=== PATIENT | female | born 2000 | race Caucasian/White ===

== ENCOUNTER 2023-12-30 07:29 | Emergency (ER) | payer OTHER, SELFPAY ==
[2023-12-30 07:35] VITALS: BP 148/85; PULSE 91; TEMP 36.7; O2SAT 96; BMI 42.2
[2023-12-30 07:42] VITALS: O2SAT 97
--- NOTE | 2023-12-30 11:45 | ED.GENADUL1 ---
HPI HPI - General Adult General Chief complaint: Upper Respiratory Infection Stated complaint: SORE THROAT, SOB, STUFFY NOSE Time Seen by Provider: 12/30/23 07:35 Source: patient Mode of arrival: walk-in Limitations: no limitations History of Present Illness HPI narrative: 23-year-old female to the emergency department chief complaint nasal congestion, cough, sore throat, malaise that began this morning. She denies any chest pain or shortness of breath. She denies . No medications taken at home. Related Data Home Medications ?Medication ?Instructions ?Recorded ?Confirmed metoprolol succinate 25 mg 25 mg PO DAILY 12/30/23 12/30/23 tablet,extended release 24 hr Previous Rx's ?Medication ?Instructions ?Recorded jckygtlqfbioyyq-opgcrvcvfqalzrk-YL 5 ml PO Q4H PRN cold symptoms #118 12/30/23 2 mg-30 mg-10 mg/5 mL oral syrup mL (Bromfed DM) Allergies Allergy/AdvReac Type Severity Reaction Status Date / Time latex AdvReac Mild Hives Verified 12/30/23 07:35 Opioid HPI Opioid Management Most Recent Opioid Data: No Data to Display Review of Systems ROS Status of ROS 10 or more systems reviewed and unremarkable except as noted in history and below Exam Narrative Exam Narrative: VITALS: I have reviewed the triage vital signs. GENERAL: Well developed, well appearing adult in no acute distress. NEURO: Alert and oriented. Moves all extremities. Face is symmetric and expressive. EYES: PERRL. No scleral icterus or conjunctival injection. No discharge. HENT: Normocephalic, atraumatic. Hearing is grossly intact. Nares grossly patent and without discharge. Mucous membranes moist. NECK: No JVD. Patient moves neck without restriction. CARDIO: Rhythm regular. Normal rate. No murmur, rub, or gallop. Pulses equal bilaterally in the upper and lower extremity. No lower extremity edema. PULM: Lungs clear to auscultation in all mcbride. No wheezes, rales, or rhonchi. No conversational dyspnea. No splinting, stridor, or accessory muscle use. GI/: Abdomen is soft and non-tender. Normoactive bowel sounds. EXTREMITIES: Symmetric muscle bulk. No joint swelling. No clubbing, cyanosis, or deformity. SKIN: Warm and dry. Normal turgor. No rash or lesions appreciated. PSYCH: Mood, affect, and interaction is appropriate to the setting. Constitutional Vital Signs, click to edit/add: Last Vital Signs Temp 98.1 F 12/30/23 07:35 Pulse 91 H 12/30/23 07:35 Resp 18 12/30/23 07:35 BP 148/85 H 12/30/23 07:35 Pulse Ox 97 12/30/23 07:42 O2 Del Method Room Air 12/30/23 07:42 Course Vital Signs Vital signs: Vital Signs Temperature 98.1 F 12/30/23 07:35 Pulse Rate 91 H 12/30/23 07:35 Respiratory Rate 18 12/30/23 07:35 Blood Pressure 148/85 H 12/30/23 07:35 Pulse Oximetry 96 12/30/23 07:35 Oxygen Delivery Method Room Air 12/30/23 07:35 Temperature 98.1 F 12/30/23 07:35 Pulse Rate 91 H 12/30/23 07:35 Respiratory Rate 18 12/30/23 07:35 Blood Pressure 148/85 H 12/30/23 07:35 Pulse Oximetry 97 12/30/23 07:42 Oxygen Delivery Method Room Air 12/30/23 07:42 Medical Decision Making MDM Narrative Medical decision making narrative: Well-appearing 23-year-old female with URI symptoms began again this morning. Vital stable, the patient is afebrile. Will treat symptomatic medications. No indication for viral testing. Rhonchi prescribed. Return precautions were discussed. All questions were answered. Patient was discharged home. Discharge Plan Discharge Stand Alone Forms: Portal Instructions Chief Complaint: Upper Respiratory Infection Clinical Impression: Upper respiratory infection Patient Disposition: Home, Self-Care Time of Disposition Decision: 07:52 Condition: Good Mode of Transportation: Private Vehicle Prescriptions / Home Meds: New owscccjbvedzvae-gmpzssimq-IQ [Bromfed DM] 2-30-10 mg/5 mL syrup 5 ml PO Q4H PRN (Reason: cold symptoms) Qty: 118 0RF No Action metoprolol succinate 25 mg tablet extended release 24 hr 25 mg PO DAILY Print Language: Pakistani Instructions: Upper Respiratory Infection (ED) Additional Instructions: Call the office of your primary care doctor to arrange for follow-up within the above-stated timeframe. Your ED visit was focused on your acute issue and does not replace primary care. You should review your labs, imaging, and diagnoses from this ED visit with your primary care physician. There may be non-emergent/ incidental findings that need further evaluation. You should review your vital signs including blood pressure with your PCP. If you were prescribed medications you should discuss possible side-effects and drug interactions with your pharmacist. Call 911 or go to the nearest Emergency Department if you develop any new or worsening symptoms. Referrals: MINAL NEWMAN [Primary Care Provider] - 1 week Discharge Date/Time: 12/30/23 07:59
== END 2023-12-30 07:59 | disposition home or self-care (01) ==
PROVIDERS: Emergency Provider Student in an Organized Health Care Education/Training Program; PCP Family Medicine
DX: J06.9 Acute upper respiratory infection, unspecified (principal)
CPT/HCPCS: 99283

== ENCOUNTER 2024-10-30 09:09 | Emergency (ER) | payer OTHER, SELFPAY ==
--- OUTSIDE RECORDS SUMMARY | 2024-09-20 10:21 | XMS_ITS | Continuity of Care Document ---
Demographics Address [address] [place] [address] Home Phone Phone Preferred Language en Marital Status Never Methodist Affiliation Unknown Race Unknown Additional Race(s) Other Race Ethnic Group Unknown Author Organization [facility] Address [address] [place] [address] Phone Care Team Providers Care Sales Promotion Director Name Role Phone Plank DO Teja Unavailable [...] BP >=130-139MM HG MED LIST DOCD IN [facility] RVW MEDS BY RX/DR IN [facility] Pt inelig neg scrn depres GLYCOSYLATED HEMOGLOBIN TEST OFFICE/OUTPATIENT VISIT, EST Bp scrn perf rec interval LDL-C <100 MG/DL DIAST BP < 80 MM HG SYST BP < 130 MM HG MED LIST DOCD IN [facility] RVW MEDS BY RX/DR IN [facility] PREV VISIT, EST, AGE 18-39 OFFICE/OUTPATIENT VISIT, EST Bp scrn perf rec interval LDL-C <100 MG/DL DIAST BP < 80 MM HG SYST BP < 130 MM HG MED LIST DOCD IN [facility] RVW MEDS BY RX/DR IN [facility] PT TOBACCO USE DONE [facility] TLK OFFICE/OUTPATIENT VISIT, NEW Bp scrn perf rec interval DIAST BP < 80 MM HG SYST BP >=130-139MM HG MED LIST DOCD IN [facility] RVW MEDS BY RX/DR IN [facility] PT TOBACCO USE DONE VD TLK ROUTINE VENIPUNCTURE Oral Hygiene Instruction Resin Composite 2s; Posterior 4 Resin Composite 2s; Posterior 4 Resin Composite 2s; Posterior 4 Oral Hygiene Instruction Prophylaxis Adult Nutrit [facility] For [facility] Of [place] Dis Apr Oral Hygiene Instruction Resin Composite [...] Diagnoses Date Provider Providers Copied on Encounter [facility], [address] [place] [address], [id number] , [place] tel: [phone] [facility] No Information Aug-2 - 5 Plank DO Teja. [address], [place], [id number] , [place]. tel: [phone] OFFICE/OUTPA TIENT VISIT, EST [facility], [address], [place], [id number] , [place] tel: [phone] [facility] knee problem (chief complaint) Weight problem (chief complaint) PrediabetesObesity, unspecifiedNeuropat hy of left lower extremityBody mass index [BMI] 45.0-49.9, adult Apr-0 - 5 Plank DO Teja. [address] [place] [address], [id number] , [place]. tel: [phone] OFFICE/OUTPA TIENT VISIT, EST [facility], [address], [place], [id number] , [place] tel: [phone] [facility] migraine f/u (chief complaint) Migraine, unspecified, not intractable, without status migrainosusPrediabe tesObesity, unspecifiedBody mass index [BMI] 39.0-39.9, adult Sep-0 - 4 Plank DO Teja. [address] [place] [address], [id number] , [place]. tel: [phone] PREV VISIT, EST, AGE 18-39 [facility], [address] [place] [address], [id number] , [place] tel: [phone] [facility] annual exam (chief complaint) Encounter for gynecological examination (general) (routine) without abnormal findings- STD High risk heterosexual behavior- STD screenIrregular periodsBody mass index [BMI]40.0-44.9, adult Nov-3 0- 4 Rice [facility] Esther. [address] [place] [address], [id number] , [place]. tel: [phone] OFFICE/OUTPA TIENT VISIT, EST [facility], [address], [place], [id number] , [place] tel: [phone] [facility] f/u labs (chief complaint) Body mass index [BMI]40.0-44.9, adultMigraine, unspecified, not intractable, without status migrainosusPrediabe quentin 4 Plank DO Teja. [address], [place], [id number] , [place]. tel: [phone] OFFICE/OUTPA TIENT VISIT, NEW [facility], [address], [place], [id number] , [place] tel: [phone] [facility] est care (chief complaint) lab draw (chief complaint) Body mass index [BMI]40.0-44.9, adultMigraine, unspecified, not intractable, without status migrainosusMenstrua l irregularityNeed for hepatitis C screening testEncounter for screening for HIVDiabetes mellitus screening 4 Plank DO Teja. [address], [place], [id number] , [place]. tel: [phone] [facility], [address] [place] [address], [id number] , [place] tel: [phone] Dental Clinic fill (chief complaint) Encounter for screening for dental disorders 4 Jacklyn DAVALOSS Cortney. . tel: [phone] [facility], [address] [place] [address], [id number] , [place] tel: [phone] Dental Clinic Filling (chief complaint) Body mass index [BMI] 34.0-34.9, adultEncounter for screening for dental disorders 4 Jacklyn DDS Cortney. . tel: [phone] [facility], [address] [place] [address], [id number] , [place] tel: [phone] Dental Clinic [place] (chief complaint) Encounter for screening for dental disorders 3 Jacklyn DDS Cortney. . tel: [phone] [facility], [address], [place], [id number] , [place] tel: [phone] Behavorial Health Generalized Anxiety DisorderDepression, unspecified Apr- 3 Capucini, [facility] Carrie. [address], [place], [id number] , [place]. tel: [phone] [facility], [address] [place] [address], [id number] , [place] tel: [phone] Dental Clinic SHONA (chief complaint) Encounter for screening for dental disorders 3 Jacklyn [facility] Cortney. . tel: [phone] [facility], [address] [place] [address], [id number] , [place] tel: [phone] [facility] Dental Clinic DENTAL NEW (chief complaint) Encounter for screening for dental disorders 3 Jacklyn [facility] Cortney. . tel: [phone] PSYTX PT&/FAMILY 60 MINUTES [facility], [address] [place] [address], [id number] , [place] tel: [phone] Behavorial Health Generalized Anxiety DisorderDepression, unspecified Feb- 3 Capucini, [facility] Carrie. [address] [place] [address], [id number] , [place]. tel: [phone] PSYTX PT&/FAMILY 60 MINUTES [facility], [address] [place] [address], [id number] , [place] tel: [phone] Behavorial Health Generalized Anxiety DisorderDepression, unspecified Oct-0 3 Capucini, [facility] Carrie. [address] [place] [address], [id number] , [place]. tel: [phone] PSYTX PT&/FAMILY 30 MINUTES [facility], [address] [place] [address], [id number] , [place] tel: [phone] Behavorial Health Generalized Anxiety DisorderDepression, unspecified Jan 3 Capucini, [facility] Carrie. [address], [place], [id number] , [place]. tel: [phone] PSYCH DIAGNOSTIC EVALUATION [facility], [address] [place] [address], [id number] , [place] tel: [phone] [facility] Generalized Anxiety DisorderDepression, unspecified Sep- 3 Berenice, [facility] Carrie. [address], [place], [id number] , [place]. tel: [phone] [facility], [address] [place] [address], [id number] , [place] tel: [phone] [facility] No Information 1 Ned Benson. [address], [place], [id number] , [place]. tel: [phone] [facility], [address] [place] [address], [id number] , [place] tel: [phone] [facility] No Information 1 Madelyni DO Granda. [address] [place] [address], [id number] , [place]. tel: [phone] Family History Family Member Type Diagnosis Age At Onset Father Problem Asthma Sister Problem ADD/ADHD Father Problem Allergies Mother Problem Diabetes mellitus Father Problem Diabetes mellitus Father Problem Hypertension Mother Problem Migraine headaches Immunizations Vaccine Date Status Comments Pfizer COVID administered Source: New Imm unization Record Pfizer COVID administered Source: New Imm unization Record Payers Payer name Insurance type Covered constitution party ID Authoragusa tihiral(s) [facility] [id number] Social History Type Description Quantity Date Captured [...] Of Treatment Date Type Action Status Goal Unhealthy drug use screening . Due on due Goal Influenza vaccine. Due on Ap due Goal Hepatitis C screening. Due o n due Goal Tdap Vaccine. Due on 2024 due Goal PRAPARE ASSESSMENT. Due on A due Goal PAP. Due on due Goal RLP. Due on due Goal Lipid panel. Due on due Goal Depression screening. Due on due Goal Tdap. Due on due Goal Lipid panel. Due on due Goal PAP. Due on due Goal PRAPARE ASSESSMENT. Due on A due Goal Hepatitis C screening. Due o n due Goal Influenza vaccine. Due on Ap due Goal Depression screening. Due on due Goal Tdap. Due on due Goal Tdap Vaccine. Due on 2024 due Goal RLP. Due on due Goal Unhealthy drug use screening . Due on due Goal Influenza vaccine. Due on Se due Goal RLP. Due on due Goal Lipid panel. Due on due Goal PRAPARE ASSESSMENT. Due on S due Goal Hepatitis C screening. Due o n due Goal Tdap Vaccine. Due on 2023 due Goal Depression screening. Due on due Goal PAP. Due on due Goal Unhealthy drug use screening . Due on due Goal Tdap. Due on due Goal RLP. Due on [...] Hep A. Due on du e Goal PRAPARE ASSESSMENT. Due on due Goal RLP. Due on due Goal PAP. Due on due Goal Influenza vaccine. Due on due Goal Lipid panel. Due on due Goal Hepatitis C screening. Due o n due Goal Tdap Vaccine. Due on 2023 due Goal Unhealthy drug use screening . Due on due Goal Depression screening. Due on due Goal Tdap. Due on due Goal Tobacco cessation counseling completed Goal Lifestyle education regardin g diet completed Goal PAP. Due on due Goal Hepatitis C screening. Due o n due Goal PRAPARE ASSESSMENT. Due on due Goal Unhealthy drug use screening . Due on due Goal Depression screening. Due on due Goal Tdap Vaccine. Due on 2023 due Goal RLP. Due on due Goal Influenza vaccine. Due on due Goal Tdap. Due on due Goal Lifestyle education regardin [...] education , guidance, and counseling completed Goal PRAPARE ASSESSMENT. Due on due Goal [...] Hep A. Due on du e Goal Tdap. Due on due Goal Hep A. Due on du e Goal Depression screening. Due on due Goal Hepatitis C screening. Due o n due Goal Influenza vaccine. Due on due Goal PRAPARE ASSESSMENT. Due on N due Goal Tdap Vaccine. Due on 2022 due Goal Unhealthy drug use screening . Due on due Goal RLP. Due on due Goal Hep A. Due [...] due Goal Tdap. Due on due Goal RLP. Due on due Goal Unhealthy drug use screening . Due on due Goal Hepatitis C screening. Due o n due Goal Tdap Vaccine. Due on 2022 due Goal Influenza vaccine. Due on Oc due Goal Tdap. Due on due Goal Depression screening. Due on due Goal RLP. Due on due Goal PRAPARE ASSESSMENT. Due on O 3 due Goal Hepatitis C screening. Due o n due Goal Tdap Vaccine. Due on 2022 due Goal Influenza vaccine. Due on Oc t due Goal Unhealthy drug use screening . Due on due Goal Hep A. Due on du e Goal Depression screening. Due on due Goal Tdap. Due on due Goal PRAPARE ASSESSMENT. Due on S ep due Goal Influenza vaccine. Due on Se p due Goal RLP. Due on due Goal Tdap Vaccine. Due on 2022 due Goal Depression screening. Due on due Goal Tdap. Due on due Goal PRAPARE ASSESSMENT. Due on S ep due Goal Tdap Vaccine. Due on 2022 due Goal Influenza vaccine. Due on Se p due Goal RLP. Due on due History [...] a tumor. She had labs completed at [facility] and had a MRI of the brain at [facility]. She states when she was on OCPs [...] care Patient here to establish care with [facility] PCP. Patient used to go to [facility], just did not like their care anymore. Patient will get scheduled with [facility] WORK [facility]. Patient is UTD on dental. Patient due for vision exam soon. Patient has concerns of migraines, has had them for years. Patient tried a dissoluble medication by [facility] that did not help. Sometimes Tylenol helps. [...]
--- OUTSIDE RECORDS SUMMARY | 2024-10-19 13:30 | XMS_ITS | Encounter Summary ---
Demographics Address [address] [place] [address] Home Phone Mobile Phone Email Address Email Address Preferred Language en Marital Status Unmarried Episcopal Affiliation Unknown Race White Ethnic Group Not or Lati no Author Organization [facility] Address [address] [place] [address] Care Team Providers Care Senior Asic Design Engineer Name Role Phone Filiberto Calhoun Primary Care Provider [phone] Encounter Details Date Type Department Care Team (Latest Contact Info) Description 10/19/2024 1:30 PM EDT Ancillary Procedure [facility] [address] [place] [id number] Amenorrhea; Polycystic ovaries Social History Tobacco Use Types Packs/Day Years Used Date Smoking Tobacco: Never Smokeless Tobacco: Never Alcohol Use Standard Drinks/Week Comments Never 0 (1 standard drink = 0.6 oz pur e alcohol) caffeine: 2-3 cups per day Humiliation, Afraid, Rape, and Kick questionnair e Answer Date Recorded Within the last year, have y ou been afraid of your partner or ex-partner? No 11/19/2022 Within the last year, have y ou been humiliated or emotionally abused in other ways by your partner or ex-partner? No Within the last year, have y ou been kicked, hit, slapped, or otherwise physically hurt by your partner or ex-partner? No 11/19/2022 Within the last year, have y ou been raped or forced to have any kind of sexual activity by your partner or ex-partner? No 11/19/2022 Social Connection and Isolation Panel [NHANES] A nswer Date Recorded In a typical week, how many times do you talk on the phone with family, friends, or neighbors? Three times a week 11/20/19 23 How often do you get togethe r with friends or relatives? Once a week 11/19/2022 How often do you attend chur ch or faith services? Never 11/19/2022 Do you belong to any clubs o r organizations such as hinduism groups, unions, fraternal or athletic groups, or school groups? No 11/19/2022 How often do you attend meet ings of the clubs or organizations you belong to? Never 11/19/2022 Are you , , di vorced, , never , or living with a partner? Living with partner 11/19/2022 AUDIT-C Answer Date Recorded Q1: How often do you have a drink containing alcohol? Never 11/19/2022 Q2: How many drinks containi ng alcohol do you have on a typical day when you are drinking? Patient does not drink Q3: How often do you have si x or more drinks on one occasion? Never 11/19/2022 Overall Financial Resource Strain (CARDIA) Answe r Date Recorded How hard is it for you to pa y for the very basics like food, housing, medical care, and heating? Somewhat hard 11/19/2022 PHQ-2 Answer Date Recorded Patient Health Questionnaire-2 Score 0 10/19/2023 [facility] - Occupational Stress Questionnaire Answer Date Recorded Do you feel stress - tense, restless, nervous, or anxious, or unable to sleep at night because your mind is troubled all the time - these days? To some extent 11/19/2022 Exercise Vital Sign Answer Date Recorde d On average, how many days pe r week do you engage in moderate to strenuous exercise (like a brisk walk)? 5 days 11/19/2022 On average, how many minutes do you engage in exercise at this level? 50 min 11/19/2022 Hunger Vital Sign Answer Date Recorded Within the past 12 months, y ou worried that your food would run out before you got the money to buy more. Sometimes true Within the past 12 months, t he food you bought just didn't last and you didn't have money to get more. Sometimes true PRAPARE - Transportation Answer Date Re corded In the past 12 months, has l ack of transportation kept you from medical appointments or from getting medications? No 10/30 In the past 12 months, has l ack of transportation kept you from meetings, work, or from getting things needed for daily living? Yes 11/19/2022 Housing Stability Vital Sign Answer Stewart e Recorded In the last 12 months, was t here a time when you were not able to pay the mortgage or rent on time? No 11/19/2022 In the last 12 months, how many places have you lived? 3 11/19/2022 In the last 12 months, was t here a time when you did not have a steady place to sleep or slept in a senior care (including now)? No 11/19/2022 Comments No Sex and Gender Information Value Date Recorded Sex Assigned at Female 11/12/2022 12:28 PM EDT Legal Sex Female 7:00 PM EDT Gender Identity Female 08/12/2022 7:00 PM EDT Sexual Orientation Pansexual 11/12/2022 12 :28 PM EDT documented as of this encounter Plan of Treatment Pending Results Name Type Priority Associated Diagnoses Date /Time US pelvis transvaginal Imaging Routine Amenorrhea Polycystic ovaries 10/19/2024 2:01 PM EDT documented as of this encounter Visit Diagnoses Diagnosis Amenorrhea Absence of menstruation Polycystic ovaries documented in this encounter Care Teams Senior Asic Design Engineer Relationship Specialty Start Date End Date Filiberto Calhoun DO [address] [address] PCP - General Family Medicine 11/17/22 documented as of this encounter
--- OUTSIDE RECORDS SUMMARY | 2024-10-19 14:00 | XMS_ITS | Encounter Summary ---
Demographics Address [address] [place] [address] Home Phone Mobile Phone Email Address Email Address Preferred Language en Marital Status Unmarried Anabaptist Affiliation Unknown Race White Ethnic Group Not or Lati no Author Organization [facility] Address [address] [place] [address] Care Team Providers Care Senior Account Director Name Role Phone Filiberto Calhoun Primary Care Provider [phone] Reason for Visit * Reason Comments Follow-up Encounter Details Date Type Department Care Team (Latest Contact Info) Description 10/19/2024 2:00 PM EDT Office Visit [facility] [address] [facility] [address] [place] [id number] Blake Serrano MD [address] [facility] [address] [place] [address] PCOS (polycystic ovarian syndrome); General counseling and advice on contraceptive management; Encounter for gynecological examination Social History Tobacco Use Types Packs/Day Years Used Date Smoking Tobacco: Never Smokeless Tobacco: Never Tobacco Cessation:Counseling Given: Not Answered Alcohol Use Standard Drinks/Week Comments Never 0 [...] or neighbors? Three times a week 11/20/19 How often do you get togethe r with friends or relatives? Once a week 11/19/2022 How often do you attend chur or sikhism services? Never 11/19/2022 Do you belong to any clubs o r organizations such as catholic groups, unions, fraternal or athletic groups, or [...] Recorded Patient Health Questionnaire-2 Score 0 10/19/2023 [facility] - Occupational Stress [...] place to sleep or slept in a longterm (including now)? No 11/19/2022 Comments No Sex and Gender Information Value Date Recorded Sex Assigned at Female 11/12/2022 12:28 PM EDT Legal Sex Female 7:00 PM EDT Gender Identity Female 08/12/2022 7:00 PM EDT Sexual Orientation Pansexual 11/12/2022 12 :28 PM EDT documented as of this encounter Last Filed Vital Signs Vital Sign Reading Time Taken Comments Blood Pressure 120/76 10/19/2024 2:01 PM EDT Pulse - - Temperature - - Respiratory Rate - - Oxygen Saturation - - Inhaled Oxygen Concentration - - Weight 117 kg (258 lb) 10/19/2024 2:01 PM EDT Height - - Body Mass Index 44.99 10/19/2023 12:22 PM EDT documented in this encounter Progress Notes * Blake Serrano MD - 10/19/2024 2:00 PM EDT Images from the original note were not included. Blake Serrano MD Obstetrics and Gynecology Patient: Osman Cohen : 2000 (23 y.o.) Exam Date: 10/19/2024 Reason for Visit - Chief Complaint Patient presents with Follow-up Follow-up following in-house ultrasound LMP 11/21 Acne/hirsutism No History of Present Illness Sprintec 09/27/24 The patient, Osman, presents with irregular bleeding and lack of periods due to a hormonal imbalance. She is not ovulating, which has been confirmed by ultrasound findings. Osman started taking control pills in August and reports taking them regularly. She experiences some cramping and a bit of s potting while on the medication. Progesterone 09/23 0.9-low SHBG,Normal [facility] An ultrasound was performed, which showed no ovarian cysts, and the ovaries and uterus appeared normal. However, the ovaries were not visible due to intestines, indicating they are not enlarged. The lining of the patient's vulva was found to be normal upon examination. Osman is not currently trying to conceive but has been informed about potential fertility treatmentswhen she decides to pursue in the future. Her obstetric history shows G0 T0 L0, indicating she has never been . The patient's medical history includes a hormonal imbalance causing irregular bleeding and lack of periods. Her current medication includes control pills, which she started in August and is taking regularly. In terms of family planning, Osman is considering future . A review of her genitourinary system is positive for irregular bleeding, lack of periods, and cramping. The patient's overall health status appears stable, with no critical issues identified during this visit. Visit Vitals LMP 11/16/2023 OB Status Having periods Smoking Status Never History of Present Illness, Associated Treatments and Results - OB History Para Term AB Living 0 0 0 0 0 0 SAB IAB Ectopic Multiple Live Births 0 0 0 0 0 Constitutional: Negative. HENT: Negative. Eyes: Negative. Respiratory: Negative. Cardiovascular: Negative. Gastrointestinal: Negative. Endocrine: Negative. Genitourinary: Negative. Musculoskeletal: Negative. Skin: Negative. Allergic/Immunologic: Negative. Neurological: Negative. Hematological: Negative. Psychiatric/Behavioral: Negative. Allergies Allergen Reactions Latex Hives Other Reaction(s): Unknown Mosquito (Diagnostic) Other Reaction(s): Unknown Current Outpatient Medications: norgestimate-ethinyl estradiol (Sprintec 28) 0.25-35 MG-MCG tablet, Take 1 tablet by mouth Daily, Disp: 28 tablet, Rfl: 12 phentermine (Adipex-P) 37.5 MG tablet, Take 37.5 mg by mouth in the morning. 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 Family History Problem Relation Name Age of Onset Diabetes Mother Diabetes Father Osman Cohen Hypertension Father Osman Cohen Hypertension Maternal Grandmother Hodan Diabetes Maternal Grandmother Hodan Asthma Maternal Grandmother Hodan Diabetes Maternal Grandfather Stroke Maternal Grandfather Diabetes Paternal Grandmother Diabetes Paternal Grandfather Cancer Mother's Sister Social History Tobacco Use Smoking Status Never Smokeless Tobacco Never Physical Exam - General appearance, mentation, extraocular movements, facial strength and movement, hearing, upper and lower extremity strength and tone, sensation to gross testing, coordination, and gait are normalor at baseline unless noted below. Physical Exam Constitutional: Appearance: Normal appearance. HENT: Head: Normocephalic and atraumatic. Neurological: Mental Status: She is alert and oriented to person, place, and time. Psychiatric: Mood and Affect: Mood normal. Behavior: Behavior normal. Transvaginal scans of the pelvis were obtained. The uterus is normal in size and contour. The myometrium appears homogenous in echotexture. The endometrium is normal in contour and measures 5.3 mm in thickness. Both ovaries are not visible. There is no overt adnexal mass. There is no free fluid visible withinthe pelvis. Assessment/Plan ICD-10-CM 1. PCOS (polycystic ovarian syndrome) E28.2 2. General counseling and advice on contraceptive management Z30.09 3. Encounter for gynecological examination Z01.419 1. Anovulation with irregular menstrual bleeding: - Assessment: a) Patient presents with irregular bleeding and lack of periods, indicative of anovulation. b) Ultrasound findings were unremarkable, with normal-appearing uterus. c) Ovaries not visible due to intestines, suggesting they are not enlarged. d) Hormonal imbalance suspected as the underlying cause. e) Patient started oral contraceptive pills in August with some cramping. - Plan: a) Continue current oral contraceptive pill regimen. b) Repeat ultrasound in 3-4 months to reassess ovaries and check for multicystic appearance. c) Order fasting insulin and hemoglobin A1c tests to rule out pancreatic issues. d) Patient to call for results once tests are completed. e) Annual follow-up appointment scheduled for next year. f) Inform patient that when is desired, medications can be provided to induce ovulation. Assessment & Plan documented in this encounter Plan of Treatment Not on file documented as of this encounter Visit Diagnoses Diagnosis PCOS (polycystic ovarian syndrome) Polycystic ovaries General counseling and advice on contraceptive management Other general counseling and advice for contraceptive management Encounter for gynecological examination documented in this encounter Care Teams Senior Account Director Relationship Specialty Start Date End Date Filiberto Calhoun DO [address] [address] PCP - General Family Medicine 11/17/22 documented as of this encounter
[2024-10-30] VITALS (12 sets, daily range): BP systolic 95–141; BP diastolic 60–81; PULSE 70; TEMP 36.5; O2SAT 97–99; BMI 44.3
--- OUTSIDE RECORDS SUMMARY | 2024-10-30 09:16 | XMS_ITS | Encounter Summary ---
Demographics Address [address] [facility] [address] [place] [address] Home Phone Mobile Phone Email Address Email Address Preferred Language en Marital Status Unmarried Episcopalian Affiliation Unknown Race White Ethnic Group Not or Lati no Author Organization [facility] Address [address] [place] [address] Care Team Providers Care Chief Green Officer Name Role Phone Filiberto Calhoun DO Primary Care Provider [phone]- [phone] Filiberto Calhoun DO Unavailable [phone] Encounter Details Date Type Department Care Team (Late st Contact Info) Description 04/05/2023 Abstract [facility] [address] [place] [id number] Filiberto Calhoun, [address] [place] [address] Social History Tobacco Use Types Packs/Day Years [...] often do you attend chur ch or mormonism services? Never 11/19/2022 Do you belong to any clubs o r organizations such as lutheran groups, unions, fraternal or athletic groups, or [...] Date Recorded Patient Health Questionnaire-2 Score 0 2022 [facility] - Occupational Stress Questionnaire Answer Date Recorded [...] place to sleep or slept in a mcc (including now)? No 11/19/2022 Comments No Sex and Gender Information Value Date Recorded Sex Assigned at Female 11/12/2022 12:28 PM EDT Legal Sex Female 7:00 PM EDT Gender Identity Female 08/12/2022 7:00 PM EDT Sexual Orientation Pansexual 11/12/2022 12 :28 PM EDT documented as of this encounter Plan of Treatment Not on file documented as of this encounter Visit Diagnoses Not on filedocumented in this encounter Care Teams Chief Green Officer Relationship Specialty Start Date End Date Filiberto Calhoun DO [address] [place] [address] PCP - General Family Medicine 11/17/22 Filiberto Calhoun, [address] [place] [address] PCP - [employer] 05/31/23 documented as of this encounter
--- OUTSIDE RECORDS SUMMARY | 2024-10-30 09:16 | XMS_ITS | Encounter Summary ---
Author Organization [facility] Address [address] [place] [address] Care Team Providers Care Cooling Pipe Inspector Name Role Phone Unavailable Primary Care Provider Unavailabl e Source Comments In the event this information is protected by the Federal Confidentiality of Alcohol and Drug AbusePatient Records regulations: The Federal rules restrict any use of the information to criminally investigate or prosecute any alcohol or drug abuse patient.[facility] Encounter Details Date Type Department Care Team (Late st Contact Info) Description 07/15/2021 [place] [address] Provider, [facility] MRI Screening Questionnaire Completion Required Social History Tobacco Use Types Packs/Day Years Used Date Smoking Tobacco: Never Smokeless Tobacco: Never Alcohol Use Standard Drinks/Week Comments Not Asked 0 (1 standard drink = 0.6 oz pur e alcohol) none Comments No Sex and Gender Information Value Date Recorded Sex Assigned at Not on file Legal Sex Female 3:03 PM EST Gender Identity Not on file Sexual Orientation Not on file COVID-19 Exposure Response Date Recorded In the last month, have you been in contact with someone who was confirmed or suspected to have Coronavirus / COVID-19? No / Unsure 07/17/2021 11:08 AM EST documented as of this encounter Plan of Treatment Not on file documented as of this encounter Visit Diagnoses Not on filedocumented in this encounter
--- OUTSIDE RECORDS SUMMARY | 2024-10-30 09:16 | XMS_ITS | Clinical Summary ---
Author Organization [facility] Address [address] [place] [address] Care Team Providers Care Commercial Intern Name Role Phone Unavailable Primary Care Provider Unavailabl e Allergies Active Allergy Reactions Criticality Noted Date Comments Latex Unknown 06/20/2021 Medications No known medications Family History Medical History Relation Comments No Known Problems Brother Diabetes Father Hypertension Father Cancer Maternal Aunt Diabetes Maternal Grandfather Stroke Maternal Grandfather Asthma Maternal Grandmother Diabetes Maternal Grandmother Hypertension Maternal Grandmother Diabetes Mother Diabetes Paternal Grandfather Diabetes Paternal Grandmother No Known Problems Sister 1 No Known Problems Sister 2 No Known Problems Sister 3 No Known Problems Sister 4 Relation Status Comments Brother Father Alive Maternal Aunt Maternal Grandfather Maternal Grandmother Mother Alive Paternal Grandfather Paternal Grandmother Sister 1 Sister 2 Sister 3 Sister 4 Social History Tobacco Use Types Packs/Day Years Used Date Smoking Tobacco: Never Smokeless Tobacco: Never Alcohol Use Standard Drinks/Week Comments Not Asked 0 (1 standard drink = 0.6 oz pur e alcohol) none Area Deprivation Index Answer Date Omari rded National Score (1-100), lower number is lower ri sk 69 06/12/2022 State Score (1-10), lower number is lower risk N ot on file 06/12/2022 Data from: https://www.neighborhoodatlas.medicine.[facility].edu/. Last address used for calculation [address] 06/12/2022 Comments No Sex and Gender Information Value Date Recorded Sex Assigned at Not on file Legal Sex Female 3:03 PM EST Gender Identity Not on file Sexual Orientation Not on file Last Filed Vital Signs Vital Sign Reading Time Taken Comments Blood Pressure 138/61 07/02/2021 10:30 AM EST Pulse 85 07/02/2021 10:30 AM EST Temperature - - Respiratory Rate - - Oxygen Saturation - - Inhaled Oxygen Concentration - - Weight 109.3 kg (241 lb) 07/02/2021 10:30 AM EST Height 160 cm (5' 3 ) 07/02/2021 10:30 AM EST Body Mass Index 42.69 07/02/2021 10:30 AM EST Plan of Treatment Health Maintenance Due Date Last Done Comments Peds To Adult Transition Initial Discussion 2014 Peds To Adult Transition Annual Assessment 2016 HPV Vaccine (1 - 3-dose series) 2017 Meningococcal B Vaccine (1 of 2 - Standard) 2018 Anxiety Screening 2020 Chlamydia Screening (18-24) 2020 Depression Screening 2020 GC (Gonorrhea) Screening (18-24) 2020 HIV Screening 2020 Hepatitis C Screening 2020 DTaP,Tdap,Td Vaccine (1 - Tdap) 2021 Hepatitis B Vaccine (1 of 3 - 19+ 3-dose series) 11/20 Cervical Cancer Screening 11/21/2023 Covid-19 Vaccine (1 - 2023- season) 2024 Influenza Vaccine (Season Ended) 2025 Insurance [employer] Member Subscriber Plan / Payer (Ef fective 2022-Present) Name:NoelStanleyy Ramu Relation to Subscriber:Self Name:Stanley Cohenmeeta Guallpa Payer ID:[id number] (NAIC) Group ID:Not on file Type:Medicaid Address: [facility] [address] [id number]
--- OUTSIDE RECORDS SUMMARY | 2024-10-30 09:16 | XMS_ITS | Clinical Summary ---
Demographics Address [address] [place] [address] Home Phone Mobile Phone Email Address Preferred Language en Marital Status Unmarried Yazdanism Affiliation Unknown Race White Ethnic Group Not or Lati no Author Organization [facility] Address [address] [place] [address] Care Team Providers Care Microsoft Bi Consultant Name Role Phone Filiberto Calhoun Primary Care Provider +1- [phone] Allergies Active Allergy Reactions Criticality Noted Date Comments Latex Hives 06/20/2021 Other Reaction(s): Unknown Mosquito (Diagnostic) 2022 Other Reaction(s): Unknown Medications phentermine (Adipex-P) 37.5 MG tablet Take 37.5 mg by mouth in the morning. Take before meals. 09/20/2024 Active norgestimate-eth inyl estradiol (Sprintec 28) 0.25-35 MG-MCG tabletIndication s:PCOS (polycystic ovarian syndrome) Take 1 tablet by mouth Daily 28 tablet 12 09/27/2024 Active Active Problems Problem Noted Date Diagnosed Date Abscess 10/19/2023 Migraine 10/19/2023 Obesity (BMI 30-39.9) 10/19/2023 Current smoker 10/19/2023 Overview (10/19/2023): Added secondary to documentation in Social History. 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 Encounters Date Type Department Care Team Description 10/19/2024 2:00 PM EDT Office Visit [facility] [address] [place] [address] Blake Serrano MD PCOS (polycystic ovarian syndrome); General counseling and advice on contraceptive management; Encounter for gynecological examination 10/19/2024 1:30 PM EDT Ancillary Procedure [facility] [address] [place] [address] Amenorrhea; Polycystic ovaries 10/19/2024 Travel 09/27/2024 2:30 PM EDT Office Visit [facility] [address] [place] [address] Blake Serrano MD Encounter for screening for cervical cancer (Primary Dx); Encounter for gynecological examination without abnormal finding; PCOS (polycystic ovarian syndrome) 09/27/2024 Travel 08/24/2024 Telephone [facility] [address] [place] [address] Blake Serrano MD Appointment Request ([facility] ---> PPJ ) from Last 3 Months Immunizations Immunization Administration Dates Next Due DTaP, Unspecified 09/13/2007, 5,05/08/2003,03/13,01/16/2003 Hep B, Adolescent or Pediatric 02/27/2004 HiB, unspecified 06/04/2004,02/27/2004 Hib / Hep B 03/13/2003,01/16/2003 IPV 09/13/2007, 5,03/13/2003,01/16 Influenza, seasonal, injecta ble, preservative free 03/15/2015,04/04/2014 MMR 09/13/2007,11/27/2003 Meningococcal MCV4P 12/29/2019,01/05/2015 Pfizer Purple Cap SARS-CoV-2 Vaccination 10/22/2020,10/01/2020 Pneumococcal Conjugate PCV 7 02/27/2004, 05/08/2003,03/13/2003,01/16 Tdap 01/05/2015 Varicella 09/13/2007,01/22/2004 Family History Medical History Relation Name Comments Diabetes Father Osman Cohen Hypertension Father Osman Cohen Diabetes Maternal Grandfather Stroke Maternal Grandfather Asthma Maternal Grandmother Hodan Diabetes Maternal Grandmother Hodan Hypertension Maternal Grandmother Hodan Diabetes Mother Cancer Mother's Sister Diabetes Paternal Grandfather Diabetes Paternal Grandmother Relation Name Status Comments Brother 1 brother Father Osman Cohen Alive Maternal Grandfather Maternal Grandmother Hodan Mother Alive Mother's Sister Alive Paternal Grandfather Paternal Grandmother Sister 4 sisters Social History Tobacco Use Types Packs/Day Years [...] often do you attend chur ch or quaker services? Never 11/19/2022 Do you belong to any clubs o r organizations such as jew groups, unions, fraternal or athletic groups, or [...] Recorded Patient Health Questionnaire-2 Score 0 10/19/2023 [facility] - Occupational Stress [...] place to sleep or slept in a long term (including now)? No 11/19/2022 Comments No Sex and Gender Information Value Date Recorded Sex Assigned at Female 11/12/2022 12:28 PM EDT Legal Sex Female 7:00 PM EDT Gender Identity Female 08/12/2022 7:00 PM EDT Sexual Orientation Pansexual 11/12/2022 12 :28 PM EDT Last Filed Vital Signs Vital Sign Reading Time Taken Comments Blood Pressure 120/76 10/19/2024 2:01 PM EDT Pulse 90 10/19/2023 12:22 PM EDT Temperature 36.8 C (98.2 F) 10/19/2023 12:22 PM EDT Respiratory Rate - - Oxygen Saturation 98% 10/19/2023 12:22 PM EDT Inhaled Oxygen Concentration - - Weight 117 kg (258 lb) 10/19/2024 2:01 PM EDT Height 161.3 cm (5' 3.5 ) 10/19/2023 12:22 PM ED T Body Mass Index 44.99 10/19/2023 12:22 PM EDT Plan of Treatment Health Maintenance Due Date Last Done Comments Influenza Vaccine (Season Ended) 2025 03/15/20 15, 04/04/2014 Procedures Procedure Name Priority Date/Time Associated Diagnosis Comments SPECIMEN STATUS REPORT Routine 09/27/2024 3:24 PM EDT CORTISOL, TOTAL Routine 09/27/2024 3:24 PM EDT PROGESTERONE Routine 09/27/2024 3:24 PM EDT Encounter for screening for cervical cancer PCOS DIAGNOSTIC PROFILE Routine 09/27/2024 3:24 PM EDT Encounter for screening for cervical cancer IGP, APT HPV,RFX 16/18,45 Routine 09/27/2024 12:00 AM EDT Encounter for gynecological examination without abnormal finding Encounter for screening for cervical cancer from Last 3 Months Results * (ABNORMAL) PCOS Diagnostic Profile (09/27/2024 3:24 PM EDT) TSH 1.3 uU/mL [facility] Comment: Reference Range: Non- Adult 0.450-4.500 First Trimester 0.100-4.000 Second Trimester 0.200-4.000 Third Trimester 0.300-4.500 Testost 10 ng/dL [facility] Comment: This test was developed and its performance characteristics determined by [facility]. It has not been cleared or approved by the Food and Drug Administration. Reference Range: Adult Females Premenopausal 10 - 55 Postmenopausal 7 - 40 % Free Testost (Dialysis) 2.3 % [facility] Comment: This test was developed and its performance characteristics determined by [facility]. It has not been cleared or approved by the Food and Drug Administration. Reference Range: Adult Females: 0.8 - 1.4 Free Testosterone 2.3 pg/mL [facility] Comment: Reference Range: Adult Females: 1.1 - 6.3 LH Ped 1.3 mIU/mL [facility] Comment: This test was developed and its performance characteristics determined by [facility]. It has not been cleared or approved by the Food and Drug Administration. Reference Range: Follicular: 2 - 9 Mid-cycle peak: 18 - 49 Luteal: 2 - 11 FSH Ped 3.8 mIU/mL [facility] Comment: This test was developed and its performance characteristics determined by [facility]. It has not been cleared or approved by the Food and Drug Administration. Reference Range: Follicular and Luteal: 1.8 - 11.2 Mid-cycle Peak: 6 - 35 Prolactin 15.8 ng/mL [facility] Comment: Hook effect or prozone effect has been ruled out by performing additional dilution analysis on all prolactin testing. Reference Range: Female Children and Adults: 4.79 - 23.3 17-Alpha-OH Progest 55 ng/dL [facility] Comment: This test was developed and its performance characteristics determined by [facility]. It has not been cleared or approved by the Food and Drug Administration. Reference Range: Adult Female Follicular: 15 - 70 Luteal: 35 - 290 DHEA-S LCMS 219 ug/dL [facility] Comment: This test was developed and its performance characteristics determined by [facility]. It has not been cleared or approved by the Food and Drug Administration. Reference Range: Adult Females (21 - 30y): 22 - 372 Sex Hormone Bind Glob 21.5(L) nmol/L [facility] Comment: Reference Range: Pubertal: 36.0 - 125.0 20 - 49y: 24.6 - 122.0 >49y: 17.3 - 125.0 Estradiol MS 5.2 pg/mL [facility] Comment: This test was developed and its performance characteristics determined by [facility]. It has not been cleared or approved by the Food and Drug Administration. Reference Range: Adult Females Follicular: 30 - 100 Luteal: 70 - 300 Postmenopausal: <15 Mullerian AMH 0.416 ng/mL [facility] Comment: For assays employing antibodies, the possibility exists for interference by heterophile antibodies in the samples.1 1.Zohreh Montes. Interferences in Immunoassays - still a threat. Clin. Chem. 2000; 46: 5006-4641. This test was developed and its performance characteristics determined by [facility]. It has not been cleared or approved by the Food and Drug Administration. Reference Range: Females 20 - 25y: 1.23 - 11.51 Median 4.70 AMH concentrations of >= 1.06 ng/mL is correlated with a better response to ovarian stimulation, produced more retrievable oocytes and higher odds of live according to Gleicher et al. Fertility and Sterility. 2010: 94:5555-7608. The current AMH test method correlates with the study method with a slope of 0.94. Females at risk of ovarian hyperstimulation syndrome or polycystic ovarian syndrome (PCOS) may exhibit elevated serum AMH concentrations. AMH levels from PCOS patients may be 2 to 5 fold higher than age-appropriate reference interval values. Granulosa cell tumors of the ovary may secrete AMH along with other tumor markers. Elevated AMH is not specific for malignancy, and the assay should not be used exclusively to diagnose or exclude an AMH-secreting ovarian tumor. Blood Venous blood specimen / Unknown 09/27/2024 3:24 PM EDT 09/27/2024 Narrative [facility] - 10/06/2024 6:07 AM EDT Performed at: 01 - [facility] [address] [place] [id number] Section Leader Screen Printing: Adarsh Luna MD, Phone: [phone] us Amalia Jett DO LAB BLOOD ORDERABLES Final Resul t [facility] * Specimen Status Report (09/27/2024 3:24 PM EDT) Pathologist [facility] SPECIMEN STATUS REPORT Comment [facility] Comment: Written Authorization Written Authorization Written Authorization Received. Authorization received from FAXED ORDER 09-28-2024 Logged by Brit Harvey 09/27/2024 3:24 PM EDT 09/27/2024 Narrative [facility] - 09/29/2024 6:07 AM EDT Performed at: - [facility] [id number] Section Leader Screen Printing: Isidro John PhD, Phone: [phone] us Amalia [facility] LAB BLOOD ORDERABLES Final Resul t Performing Organization Address [facility] de Phone Number [facility] * Progesterone (09/27/2024 3:24 PM EDT) Pathologist [facility] Progesterone 0.6 ng/mL [facility] Comment: Follicular phase 0.1 - 0.9 Luteal phase 1.8 - 23.9 Ovulation phase 0.1 - 12.0 First trimester 11.0 - 44.3 Second trimester 25.4 - 83.3 Third trimester 58.7 - 214.0 Postmenopausal 0.0 - 0.1 Blood Venous blood specimen / Unknown 09/27/2024 3:24 PM EDT 09/27/2024 Narrative [facility] - 10/06/2024 6:07 AM EDT Performed at: [facility] [id number] Section Leader Screen Printing: Isidro John PhD, Phone: [phone] Amalia [facility] LAB BLOOD ORDERABLES Final Resul t Performing Organization Address [facility] Co de Phone Number [facility] * Cortisol (09/27/2024 3:24 PM EDT) Pathologist [facility] CORTISOL 16.3 6.2 - 19.4 ug/dL [facility] Comment: Please Note: The reference interval and flagging for this test is for an AM collection. If this is a PM collection please use: Cortisol PM: 2.3-11.9 09/27/2024 3:24 PM EDT 09/27/2024 Narrative [facility] - 09/29/2024 6:07 AM EDT Performed at: - [address] [id number] Section Leader Screen Printing: Isidro John PhD, Phone: [phone] Amalialalita Jett DO LAB BLOOD ORDERABLES Final Resul t [facility] * IGP, APT HPV,RFX 16/18,45 (09/27/2024 12:00 AM EDT) Diagnosis: Comment [facility] Comment:NEGATIVE FOR INTRAEP ITHELIAL LESION OR MALIGNANCY. Specimen Adequacy: Comment [facility] Comment: Satisfactory for evaluation. Endocervical and/or squamous metaplastic cells (endocervical component) are present. Clinician Provided ICD10: Comment [facility] Comment: Z01.419 Z12.4 Performed By: Comment [facility] Comment:Thao kendrick, Brazer Assembler (ASCP) Cyto Comments . [facility] Note: Comment [facility] Comment: The Pap smear is a screening test designed to aid in the detection of premalignant and malignant conditions of the uterine cervix. It is not a diagnostic procedure and should not be used as the sole means of detecting cervical cancer. Both false-positive and false-negative reports do occur. Test Methodology: Comment [facility] Comment: This liquid based ThinPrep(R) pap test was screened with the use of an image guided system. HPV Aptima Negative Negative [facility] Comment: This nucleic acid amplification test detects fourteen high-risk HPV types (16,18,31,33,35,39,45,51,52,56,58,59,66,68) without differentiation. Vaginal Fluid 09/27/2024 09/28/2024 Narrative [facility] - 09/29/2024 11:07 AM EDT Performed at: 01 - [facility] [address] [id number] Section Leader Screen Printing: Liyah Dsouza MD, Phone: [phone] Performed at: 02 - [facility] [place] [address] [facility] [place] [place] [id number] Section Leader Screen Printing: Liyah Dsouza MD, Phone: [phone] Specimen Comment: No. of containers..01 ThinPrep Vial us Blake Serrano MD LAB BLOOD ORDERABLES Final Res ult [facility] from Last 3 Months Insurance * Guarantor: Osman Cohen Account Type Relation to Patient Date of Phone Billing Address Personal/Family Self 2000 [address] [facility] [address] [place] [address] [employer] Care Teams Microsoft Bi Consultant Relationship Specialty Start Date End Date Filiberto Calhoun DO [address] [place] [address] PCP - General Family Medicine 11/17/22
--- OUTSIDE RECORDS SUMMARY | 2024-10-30 09:16 | XMS_ITS | Clinical Summary ---
Author Organization [facility] Address [address] [place] [address] Care Team Providers Care Bun Panner Name Role Phone Filiberto Calhoun DO Primary Care Provider [phone] Allergies Active Allergy Reactions Criticality Noted Date Comments Latex Hives 05/20/2022 Medications No known medications Social History Tobacco Use Types Packs/Day Years Used Date Smoking Tobacco: Never Smokeless Tobacco: Never Tobacco Cessation:Counseling Given: Not Answered Alcohol Use Standard Drinks/Week Comments Not Currently 0 (1 standard drink = 0.6 oz pur e alcohol) AUDIT-C Answer Date Recorded Q1: How often do you have a drink containing alcohol? Never 08/04/2022 Q2: How many drinks containi ng alcohol do you have on a typical day when you are drinking? Patient does not drink Q3: How often do you have si x or more drinks on one occasion? Never 08/04/2022 Comments No Sex and Gender Information Value Date Recorded Sex Assigned at Not on file Legal Sex Female 5:20 AM EST Gender Identity Not on file Sexual Orientation Not on file Last Filed Vital Signs Vital Sign Reading Time Taken Comments Blood Pressure 99/55 08/04/2022 10:45 AM EST Pulse 72 08/04/2022 10:45 AM EST Temperature 36.8 C (98.2 F) 08/04/2022 8:43 AM EST Respiratory Rate 18 08/04/2022 10:45 AM EST Oxygen Saturation 99% 08/04/2022 10:45 AM EST Inhaled Oxygen Concentration - - Weight 99.8 kg (220 lb) 08/04/2022 8:40 AM EST Height 165.1 cm (5' 5 ) 08/04/2022 8:40 AM EST Body Mass Index 36.61 08/04/2022 8:40 AM EST Plan of Treatment Health Maintenance Due Date Last Done Comments Depression Screen 2014 Varicella vaccine (1 of 2 - 13+ 2-dose series) 11/21/2015 HIV screen 2017 HPV vaccine (1 - 3-dose series) 2017 Chlamydia/GC screen 2018 Meningococcal B vaccine (1 o f 2 - Standard) 2018 Hepatitis C screen 2020 DTaP/Tdap/Td vaccine (1 - Tdap) 2021 Hepatitis B vaccine (1 of 3 - 19+ 3-dose series) 2021 Pap smear 11/21/2023 COVID-19 Vaccine (1 - 2023-2 5 season) 2024 Flu vaccine (Season Ended) 2024 Hepatitis A vaccine Aged Out No longe r eligible based on patient's age to complete this topic Hib vaccine Aged Out No longer eligi ble based on patient's age to complete this topic Meningococcal (ACWY) vaccine Aged Out No longer eligible based on patient's age to complete this topic Pneumococcal 0-49 years Vaccine Aged Out No longer eligible based on patient's age to complete this topic Polio vaccine Aged Out No longer elig ible based on patient's age to complete this topic Insurance [facility] Care Teams Bun Panner Relationship Specialty Start Date End Date Filiberto Calhoun DO [address] [place] [address] PCP - General Family Medicine 05/20/22
--- OUTSIDE RECORDS SUMMARY | 2024-10-30 09:16 | XMS_ITS | Encounter Summary ---
Demographics Address [address] [facility] [address] [place] [address] Home Phone Mobile Phone Email Address Email Address Preferred Language en Marital Status Unmarried Pentecostalism Affiliation Unknown Race White Ethnic Group Not or Lati no Author Organization [facility] Address [address] [place] [address] Care Team Providers Care Cone Picker Name Role Phone Filiberto Calhoun DO Primary Care Provider + [phone] Filiberto Calhoun DO Unavailable [phone] Filiberto Calhoun DO Unavailable [phone] Encounter Details Date Type Department Care Team (Late st Contact Info) Description 11/19/2022 Abstract [facility] [address] [place] [address] Filiberto Calhoun, [address] [place] [address] Social History Tobacco Use Types Packs/Day Years Used Date Smoking Tobacco: Never Smokeless Tobacco: Never Alcohol Use Standard Drinks/Week Comments Not Currently [...] often do you attend chur ch or shinto services? Never 11/19/2022 Do you belong to any clubs o r organizations such as religious groups, unions, fraternal or athletic groups, or [...] Recorded Patient Health Questionnaire-2 Score 0 2022 [facility] - [...] place to sleep or slept in a jail (including now)? No 11/19/2022 Comments Unknown Sex and Gender Information Value Date Recorded Sex Assigned at Female 11/12/2022 12:28 PM EDT Legal Sex Female 7:00 PM EDT Gender Identity Female 08/12/2022 7:00 PM EDT Sexual Orientation Pansexual 11/12/2022 12 :28 PM EDT COVID-19 Exposure Response Date Recorded In the last 10 days, have yo u been in contact with someone who was confirmed or suspected to have Coronavirus/COVID-19? No / Unsure 11/19/2022 9:56 AM EDT documented as of this encounter Functional Status * Audit-C Score Answer Date of Assessment Author 0 11/19/2022 9:55 AM EDT Severino, Generic * Q1: How often do you have a drink containing alcohol? Answer Date of Assessment Author Never 11/19/2022 9:55 AM EDT Severino, Generic * Q2: How many drinks containing alcohol do you have on a typical day when you are drinking? Answer Date of Assessment Author Patient does not drink 11/19/2022 9:55 AM EDT My chart, Generic * Q3: How often do you have six or more drinks on one occasion? Answer Date of Assessment Author Never 11/19/2022 9:55 AM EDT Mychart, Generic * Over the past 2 weeks, how often have you been bothered by any of the following problems? Question Answer Date of Assessment Author Little interest or pleasure in doing things Not at all 2022 9:57 AM EDT Janet Buckley LPN Feeling down, depressed, or hopeless Not at all 2022 9:57 AM EDT Janet Buckley LPN Patient Health Questionnaire-2 Score 0 2022 9:57 AM EDT Deidra Buckley LPN documented as of this encounter Plan of Treatment Not on file documented as of this encounter Visit Diagnoses Not on filedocumented in this encounter Care Teams Cone Picker Relationship Specialty Start Date End Date Filiberto Calhoun DO [address] [place] [address] PCP - General Family Medicine 11/17/22 Filiberto Calhoun DO [address] [place] [address] PCP - [facility] 01/29/2303/30 Filiberto Calhoun DO [address] [place] [address] PCP - [facility] 05/31/23 documented as of this encounter
--- OUTSIDE RECORDS SUMMARY | 2024-10-30 09:16 | XMS_ITS | Encounter Summary ---
Demographics Address [address] [facility] [address] [place] [address] Home Phone Mobile Phone Email Address Email Address Preferred Language en Marital Status Unmarried Church Affiliation Unknown Race White Ethnic Group Not or Lati no Author Organization [facility] Address [address] [facility] [place] [address] Care Team Providers Care Veneer Press Operator Name Role Phone Filiberto Calhoun DO Primary Care Provider [phone] Filiberto Calhoun DO Unavailable [phone] Filiberto Calhoun DO Unavailable [phone] Encounter Details Date Type Department Care Team (Late st Contact Info) Description 11/16/2022 Orders Only [facility] [address] [place] [id number] Provider, MD Alexis [address] [place] [address] Social History Tobacco Use Types Packs/Day Years Used Date Smoking Tobacco: Never Smokeless Tobacco: Never Alcohol Use Standard Drinks/Week Comments Not Currently 0 (1 standard drink = 0.6 oz pur e alcohol) Humiliation, Afraid, Rape, and Kick questionnair e [...] often do you attend chur ch or voodoo services? Never 11/19/2022 Do you belong to any clubs o r organizations such as uatsdin groups, unions, fraternal or athletic groups, or [...] Recorded Patient Health Questionnaire-2 Score 0 2022 [facility] - Occupational Stress Questionnaire Answer Date [...] place to sleep or slept in a usp (including now)? No 11/19/2022 Comments Unknown Sex [...] Never 11/19/2022 9:55 AM EDT Severino, Generic documented as of this encounter Plan of Treatment Not on file documented as of this encounter Procedures Procedure Name Priority Date/Time Associated Diagnosis Comments SCANNED LABS Routine 11/14/2022 1:08 PM EDT documented in this encounter Results * SCANNED LABS (11/14/2022 1:08 PM EDT) us Historical Provider LAB CHG PERFORMABLES Jessy l Result documented in this encounter Visit Diagnoses Not on filedocumented in this encounter Care Teams Veneer Press Operator Relationship Specialty Start Date End Date Filiberto Calhoun, DO [address] [place] [address] PCP - General Family Medicine 11/17/22 Filiberto Calhoun DO [address] [place] [address] PCP - [facility] 01/29/2303/30 Filiberto Calhoun DO [address] [place] [address] PCP - [facility] 05/31/23 documented as of this encounter
--- OUTSIDE RECORDS SUMMARY | 2024-10-30 09:16 | XMS_ITS | Encounter Summary ---
Demographics Address [address] [facility] [address] [place] [address] Home Phone Mobile Phone Email Address Email Address Preferred Language en Marital Status Unmarried Baptist Affiliation Unknown Race White Ethnic Group Not or Lati no Author Organization [facility] Address [address] [facility] [place] [address] Care Team Providers Care Annual Giving Director Name Role Phone Filiberto Calhoun DO Primary Care Provider + [phone] Filiberto Calhoun DO Unavailable [phone] Filiberto Calhoun DO Unavailable [phone] Encounter Details Date Type Department Care Team (Late st Contact Info) Description 12/10/2022 Abstract [facility] [address] [facility] [address] [place] [id number] Tho Potts, DO [address] [facility] [address] [place] [address] Social History Tobacco Use Types Packs/Day Years [...] often do you attend chur ch or confucianism services? Never 11/19/2022 Do you belong to any clubs o r organizations such as spiritism groups, unions, fraternal or athletic groups, or [...] Recorded Patient Health Questionnaire-2 Score 0 2022 [facility] Occupat ional Health - Occupational Stress [...] place to sleep or slept in a group home (including now)? No 11/19/2022 Comments Unknown Sex [...] suspected to have Coronavirus/COVID-19? No / Unsure 12/10/2022 8:43 PM EDT documented as of this encounter Plan of Treatment Not on file documented as of this encounter Visit Diagnoses Not on filedocumented in this encounter Care Teams Annual Giving Director Relationship Specialty Start Date End Date Filiberto Clahoun DO [address] [place] [address] PCP - General Family Medicine 11/17/22 Filiberto Calhoun DO [address] [place] [address] PCP - [place] [employer] 01/29/2303/30 Filiberto Calhoun DO [address] [place] [id number] PCP - [place] [employer] 05/31/23 documented as of this encounter
--- OUTSIDE RECORDS SUMMARY | 2024-10-30 09:16 | XMS_ITS | Encounter Summary ---
Author Organization [facility] Address [address] [place] [address] Care Team Providers Care Thermograph Operator Name Role Phone Unavailable Primary Care Provider Unavailabl e Source Comments In the event this information is protected by the Federal Confidentiality of Alcohol and Drug AbusePatient Records regulations: The Federal rules restrict any use of the information to criminally investigate or prosecute any alcohol or drug abuse patient.[facility] Encounter Details Date Type Department Care Team (Latest Contact Info) Description 03/12/2022 Patient Msg Reproductive Endocrinology Infertility [address] [place] [id number] Provider, Ccf Confidential - Appointment Authorization Social History Tobacco Use Types Packs/Day Years [...] on file Sexual Orientation Not on file documented as of this encounter Plan of Treatment Not on file documented as of this encounter Visit Diagnoses Not on filedocumented in this encounter
--- OUTSIDE RECORDS SUMMARY | 2024-10-30 09:16 | XMS_ITS | Encounter Summary ---
Demographics Address [address] [facility] [address] [place] [address] Home Phone Mobile Phone Email Address Email Address Preferred Language en Marital Status Unmarried Adventism Affiliation Unknown Race White Ethnic Group Not or Lati no Author Organization [facility] Address [address] [facility] [place] [address] Care Team Providers Care Slotter Operator Helper Name Role Phone Filiberto Calhoun DO Primary Care Provider [phone] Filiberto Calhoun DO Unavailable [phone] Filiberto Calhoun DO Unavailable [phone] Encounter Details Date Type Department Care Team (Late st Contact Info) Description 11/18/2022 Orders Only [facility] [address] [place] [id number] Provider, MD Alexis [address] [place] [address] Social History Tobacco Use Types Packs/Day [...] often do you attend chur ch or hoahaoism services? Never 11/19/2022 Do you belong to any clubs o r organizations such as scientologist groups, unions, fraternal or athletic groups, or [...] Recorded Patient Health Questionnaire-2 Score 0 2022 [facility] - Occupational Stress Questionnaire Answer Date [...] place to sleep or slept in a half-way (including now)? No 11/19/2022 Comments Unknown Sex [...] 11/19/2022 9:55 AM EDT Severino, Generic * Over the past 2 weeks, [...] Associated Diagnosis Comments SCANNED LABS Routine 11/14/2022 4:45 PM EDT SCANNED LABS Routine 11/14/2022 8:27 AM EDT documented in this encounter Results * SCANNED LABS (11/14/2022 4:45 PM EDT) us Historical Provider LAB CHG PERFORMABLES Jessy l Result * SCANNED LABS (11/14/2022 8:27 AM EDT) us Historical Provider LAB CHG PERFORMABLES Jessy l Result documented in this encounter Visit Diagnoses Not on filedocumented in this encounter Care Teams Slotter Operator Helper Relationship Specialty Start Date End Date Filiberto Calhoun DO [address] [place] [address] PCP - General Family Medicine 11/17/22 Filiberto Calhoun DO [address] [place] [address] PCP - [place] [employer] 01/29/2303/30 Filiberto Calhoun DO [address] [place] [address] PCP - [place] [employer] 05/31/23 documented as of this encounter
--- OUTSIDE RECORDS SUMMARY | 2024-10-30 09:16 | XMS_ITS | Encounter Summary ---
Author Organization [facility] Address [address] [place] [address] Care Team Providers Care Construction Flagger Name Role Phone Unavailable Primary Care Provider Unavailabl e Source Comments In the event this information is protected by the Federal Confidentiality of Alcohol and Drug AbusePatient Records regulations: The Federal rules restrict any use of the information to criminally investigate or prosecute any alcohol or drug abuse patient.[facility] Encounter Details Date Type Department Care Team (Late st Contact Info) Description 03/11/2022 Patient Msg Endocrinology [address] [id number] Provider, Ccf Appointment Social History Tobacco Use Types Packs/Day Years [...]
--- OUTSIDE RECORDS SUMMARY | 2024-10-30 09:16 | XMS_ITS | Encounter Summary ---
Demographics Address [address] [facility] [address] [place] [address] Home Phone Mobile Phone Email Address Email Address Preferred Language en Marital Status Unmarried Judaism Affiliation Unknown Race White Ethnic Group Not or Lati no Author Organization [facility] Address [address] [place] [address] Care Team Providers Care Cultured Marble Products Maker Name Role Phone Filiberto Calhoun DO Primary Care Provider + [phone] Filiberto Calhoun DO Unavailable [phone] Filiberto Calhoun DO Unavailable [phone] Encounter Details Date Type Department Care Team (Late st Contact Info) Description 12/23/2022 Abstract [facility] [address] [place] [address] Filiberto Calhoun, [address] [place] [address] Social History Tobacco Use Types Packs/Day Years [...] any clubs o r organizations such as yazidi groups, unions, fraternal or athletic groups, or [...] Recorded Patient Health Questionnaire-2 Score 0 2022 [facility] of Occupat ional Health - Occupational [...] place to sleep or slept in a alf (including now)? No 11/19/2022 Comments No Sex [...] on filedocumented in this encounter Care Teams Cultured Marble Products Maker Relationship Specialty Start Date End Date Fliiberto Calhoun, DO [address] [place] [address] PCP - General Family Medicine 11/17/22 Filiberto Calhoun, DO [address] [place] [address] PCP - [place] [employer] 01/29/2303/30 Filiberto Calhoun DO [address] [place] [address] PCP - [place] [employer] 05/31/23 documented as of this encounter
--- OUTSIDE RECORDS SUMMARY | 2024-10-30 09:16 | XMS_ITS | Encounter Summary ---
Demographics Address [address] [facility] [address] [place] [address] Home Phone Mobile Phone Email Address Email Address Preferred Language en Marital Status Unmarried Anabaptist Affiliation Unknown Race White Ethnic Group Not or Lati no Author Organization [facility] Address [address] [place] [address] Care Team Providers Care Protection Chief Industrial Plant Name Role Phone Filiberto Calhoun DO Primary Care Provider [phone] Fiilberto Calhoun DO Unavailable [phone] Encounter Details Date Type Department Care Team (Late st Contact Info) Description 06/24/2023 Orders Only [facility] FM [address] [place] [id number] A, Unknown Practice [address] [place], [place] [address] Social History Tobacco Use Types Packs/Day Years [...] often do you attend chur ch or samaritan services? Never 11/19/2022 Do you belong to [...] Recorded Patient Health Questionnaire-2 Score 0 2022 [facility] - Occupational Stress Questionnaire Answer Date [...] place to sleep or slept in a penitentiary (including now)? No 11/19/2022 Comments No Sex [...] Date/Time Associated Diagnosis Comments SCANNED LABS Routine 06/22/2023 8:13 AM EST documented in this encounter Results * SCANNED LABS (06/22/2023 8:13 AM EST) us Unknown Practice A LAB CHG PERFORMABLES Final Re sult documented in this encounter Visit Diagnoses Not on filedocumented in this encounter Care Teams Protection Chief Industrial Plant Relationship Specialty Start Date End Date Filiberto Calhoun, DO [address] [place] [address] PCP - General Family Medicine 11/17/22 Filiberto Calhoun DO [address] [place] [address] PCP - [place] [employer] 1/1/24 4/11/ 25 documented as of this encounter
--- OUTSIDE RECORDS SUMMARY | 2024-10-30 09:16 | XMS_ITS | Encounter Summary ---
Author Organization [facility] Address [address] [place] [address] Care Team Providers Care Manager Asset Management Name Role Phone Unavailable Primary Care Provider Unavailabl e Source Comments In the event this information is protected by the Federal Confidentiality of Alcohol and Drug AbusePatient Records regulations: The Federal rules restrict any use of the information to criminally investigate or prosecute any alcohol or drug abuse patient.[facility] Encounter Details Date Type Department Care Team (Late st Contact Info) Description 03/05/2022 Patient Msg Reproductive Endocrinology Infertility [address] [place] [address] Bettina Caraballo MD [address] [id number] Plans Social History Tobacco Use Types Packs/Day Years [...] as of this encounter Visit Diagnoses 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
--- OUTSIDE RECORDS SUMMARY | 2024-10-30 09:16 | XMS_ITS | Encounter Summary ---
Demographics Address [address] [facility] [address] [place] [address] Home Phone Mobile Phone Email Address Email Address Preferred Language en Marital Status Unmarried Taoism Affiliation Unknown Race White Ethnic Group Not or Lati no Author Organization [facility] Address [address] [place] [address] Care Team Providers Care Tie Maker Name Role Phone Filiberto Calhoun DO Primary Care Provider [phone] Filiberto Calhoun DO Unavailable [phone] Encounter Details Date Type Department Care Team (Late st Contact Info) Description 06/25/2023 Orders Only [facility] FM [address] [place] [id number] A, Unknown Practice [address] [place], [place] [address] Social History Tobacco Use Types Packs/Day Years [...] any clubs o r organizations such as mosque groups, unions, fraternal or athletic groups, or [...] Recorded Patient Health Questionnaire-2 Score 0 2022 [facility] - Occupational Stress Questionnaire Answer Date [...] Associated Diagnosis Comments SCANNED LABS Routine 06/22/2023 9:06 AM EST documented in this encounter Results * SCANNED LABS (06/22/2023 9:06 AM EST) us Unknown Practice A LAB CHG PERFORMABLES Final Re sult documented in this encounter Visit Diagnoses Not on filedocumented in this encounter Care Teams Tie Maker Relationship Specialty Start Date End Date Filiberto Calhoun, DO [address] [place] [address] PCP - General Family Medicine 11/17/22 Filiberto Calhoun DO [address] [place] [address] PCP - [place] [employer] 1/1/24 4/11/ 25 documented as of this encounter
--- OUTSIDE RECORDS SUMMARY | 2024-10-30 09:16 | XMS_ITS | Encounter Summary ---
Demographics Address [address] [facility] [address] [place] [address] Home Phone Mobile Phone Email Address Email Address Preferred Language en Marital Status Unmarried Mandaeism Affiliation Unknown Race White Ethnic Group Not or Lati no Author Organization [facility] Address [address] [place] [address] Care Team Providers Care Worm Raiser Name Role Phone Filiberto Calhoun DO Primary Care Provider + [phone] Filiberto Calhoun DO Unavailable [phone] Filiberto Calhoun DO Unavailable [phone] Encounter Details Date Type Department Care Team (Late st Contact Info) Description 12/22/2022 Abstract [facility] [address] [place] [address] Filiberto Calhoun, [address] [place] [address] Social History Tobacco Use Types Packs/Day Years [...] often do you attend chur ch or jehovah's witness services? Never 11/19/2022 Do you belong to any clubs o r organizations such as faith groups, unions, fraternal or athletic groups, or [...] Recorded Patient Health Questionnaire-2 Score 0 2022 [facility] of Occupat ional Health - Occupational Stress [...] on filedocumented in this encounter Care Teams Worm Raiser Relationship Specialty Start Date End Date Filiberto Calhoun, DO [address] [place] [address] PCP - General Family Medicine 11/17/22 Filiberto Calhoun, DO [address] [place] [address] PCP - [place] [employer] 01/29/2303/30 Filiberto Calhoun DO [address] [place] [address] PCP - [place] [employer] 05/31/23 documented as of this encounter
--- OUTSIDE RECORDS SUMMARY | 2024-10-30 09:16 | XMS_ITS | Encounter Summary ---
Author Organization [facility] Address [address] [place] [address] Care Team Providers Care Construction Equipment Mechanic Name Role Phone Unavailable Primary Care Provider Unavailabl e Source Comments In the event this information is protected by the Federal Confidentiality of Alcohol and Drug AbusePatient Records regulations: The Federal rules restrict any use of the information to criminally investigate or prosecute any alcohol or drug abuse patient.[facility] Encounter Details Date Type Department Care Team (Late st Contact Info) Description 05/06/2022 Patient Msg Reproductive Endocrinology Infertility [address] [place], [place] [phone] Bettina Caraballo MD [address] [phone] appointment Social History Tobacco Use Types Packs/Day Years [...]
--- OUTSIDE RECORDS SUMMARY | 2024-10-30 09:16 | XMS_ITS | Encounter Summary ---
Demographics Address [address] [place] [address] Home Phone Mobile Phone Email Address Email Address Preferred Language en Marital Status Unmarried Latter-Day Affiliation Unknown Race White Ethnic Group Not or Lati no Author Organization [facility] Address [address] [place] [address] Care Team Providers Care Drip Molder Name Role Phone Filiberto Calhoun Ricki CHRISTOPHER Primary Care Provider [phone] Encounter Details Date Type Department Care Team (Latest Contact Info) Description 10/19/2024 Travel Social History Tobacco Use Types Packs/Day Years [...] often do you attend chur ch or mandaeism services? Never 11/19/2022 Do you belong to any clubs o r organizations such as anabaptist groups, unions, fraternal or athletic groups, or [...] Recorded Patient Health Questionnaire-2 Score 0 10/19/2023 [facility] of Occupat ional Health - [...] on filedocumented in this encounter Care Teams Drip Molder Relationship Specialty Start Date End Date Filiberto Calhoun DO [address] [place] [address] PCP - General Family Medicine 11/17/22 documented as of this encounter
--- OUTSIDE RECORDS SUMMARY | 2024-10-30 09:16 | XMS_ITS | Encounter Summary ---
Demographics Address [address] [facility] [address] [place] [address] Home Phone Mobile Phone Email Address Email Address Preferred Language en Marital Status Unmarried Jainism Affiliation Unknown Race White Ethnic Group Not or Lati no Author Organization [facility] Address [address] [place] [address] Care Team Providers Care Windows System Admin Name Role Phone Filiberto Calhoun DO Primary Care Provider [phone]- [phone] Filiberto Calhoun DO Unavailable [phone] Encounter Details Date Type Department Care Team (Late st Contact Info) Description 06/23/2023 Orders Only [facility] FM [address] [place] [id number] A, Unknown Practice [address] [place], [place] [id number] Social History Tobacco Use Types Packs/Day Years [...] often do you attend chur ch or orthodoxy services? Never 11/19/2022 Do you belong to any clubs o r organizations such as adventism groups, unions, fraternal or athletic groups, or [...] Recorded Patient Health Questionnaire-2 Score 0 2022 [facility] - Occupational Stress Questionnaire Answer Date Recorded [...] place to sleep or slept in a retirement (including now)? No 11/19/2022 Comments No Sex [...] Associated Diagnosis Comments SCANNED LABS Routine 06/22/2023 8:21 AM EST documented in this encounter Results * SCANNED LABS (06/22/2023 8:21 AM EST) us Unknown Practice A LAB CHG PERFORMABLES Final Re sult documented in this encounter Visit Diagnoses Not on filedocumented in this encounter Care Teams Windows System Admin Relationship Specialty Start Date End Date Filiberto Calhoun, DO [address] [place] [address] PCP - General Family Medicine 11/17/22 Filiberto Calhoun DO [address] [place] [address] PCP - [place] [employer] 1/1/24 4/11/ 25 documented as of this encounter
--- OUTSIDE RECORDS SUMMARY | 2024-10-30 09:16 | XMS_ITS | Patient Health Record ---
Author Organization [facility] Address [address] [place] [address] Care Team Providers Care Artificial Foliage Arranger Name Role Phone Filiberto Calhoun Primary Care Provider Unavaila ble Allergies No Known Allergies Reason For Referral No Information Social History Tobacco Use: Social History Observation Description Date Details (start date - stop date) Never Smoker NA - NA Tobacco Use Question Answer Notes Are you a Never smoker Section Notes: Immunizations up to date. Immunizations up to date. Im munizations up to date. Immunizations up to date. Problems Problem Type SNOMED Code ICD Code Onset Dates Problem Status W/U Status Risk Notes Problem Seasonal allergies (J30.2) Active confirmed Problem 601348523 Obesity (BMI 30-39.9) (E66.9) Active confirmed Plan Of Treatment No Information Insurance Providers Payer Name Payer Address Payer Phone Subscriber Number Group Number Insured Name Patient Relationship to Insured Coverage Start Date Coverage End Date [employer] [address] [place] [address] [id number] ARIANESUMA Self - patient is the insured Medical (General) History Medical History History ICD Code Rheumatic Fever (age 12) Seasonal allergies J30.2
--- NOTE | 2024-10-30 09:24 | ED_ITS ---
HPI - Nausea/Vomiting/Diarrhea General Chief complaint: Nausea/Vomiting/Diarrhea Stated complaint: MIGRAINE VOMITING DIARRHEA Time Seen by Provider: 10/30/24 09:23 Source: patient Mode of arrival: walk-in Limitations: no limitations History of Present Illness HPI Narrative: Patient with history of migraine woke up this morning with nausea vomiting and diarrhea and she started having some headache too, the patient had 2 episodes of diarrhea since the morning And she mentioned that she tried some Tylenol but she vomits with that that that is why she came to the ER Related Data Home Medications ?Medication ?Instructions ?Recorded ?Confirmed norgestimate 0.25 mg-ethinyl 1 tab PO DAILY 10/30/24 0 10/30/24 estradiol 0.035 mg tablet (Sprintec (28)) Previous Rx's ?Medication ?Instructions ?Recorded ondansetron 4 mg disintegrating 4 mg PO Q8H PRN nausea and 10/30/24 tablet vomiting 48 hours #6 tabs Allergies Allergy/AdvReac Type Severity Reaction Status Date / Time latex AdvReac Mild Hives Verified 12/30/23 07:35 Review of Systems ROS Status of ROS 10 or more systems reviewed and unremark able except as noted in history and below PFSH PFSH Social History Little interest or pleasure in doing things: not at all Feeling down, depressed, or hopeless: not at all Exam Narrative Exam Narrative: Nurses notes and vital signs reviewed and patient is not hypoxic. General: Well-appearing and in no apparent distress. Skin: Warm, dry, no pallor noted. No rash. Head: Normocephalic, atraumatic. Neck: Supple, non-tender. Eye: Pupils are equal, round and EOMI. No scleral icterus. Cardiovascular: Regular Rate and Rhythm without murmur, gallop or rub. Respiratory: No accessory muscle use or respiratory distress. Lungs are clear to auscultation, no wheezing, rales or rhonchi Musculoskeletal: normal ROM, no calf or popliteal tenderness, no lower extremity edema/swelling GI: Abdomen is soft, non-distended. Normal bowel sounds. No masses appreciated. No tenderness to palpation. No rebound, guarding, or rigidity noted. Neurological: A&O x4. No cranial nerve dysfunction observed. No truncal ataxia. Moves all extremities. Sensation intact. Psychiatric: Cooperative and interactive. Normal mood and affect. Constitutional Vital Signs, click to edit/add: Last Vital Signs Temp 97.7 F 10/30/24 09:17 Pulse 70 10/30/24 09:17 Resp 18 10/30/24 09:17 BP 122/65 10/30/24 10:31 Pulse Ox 99 10/30/24 10:50 O2 Del Method Room Air 10/30/24 09:17 Course Vital Signs Vital signs: Vital Signs Temperature 97.7 F 10/30/24 09:17 Pulse Rate 70 10/30/24 09:17 Respiratory Rate 18 10/30/24 09:17 Blood Pressure 141/80 10/30/24 09:17 Pulse Oximetry 98 10/30/24 09:17 Oxygen Delivery Method Room Air 10/30/24 09:17 Temperature 97.7 F 10/30/24 09:17 Pulse Rate 70 10/30/24 09:17 Respiratory Rate 18 10/30/24 09:17 Blood Pressure 122/65 10/30/24 10:31 Pulse Oximetry 99 10/30/24 10:50 Oxygen Delivery Method Room Air 10/30/24 09:17 MDM - Nausea/Vomiting/Diarrhea MDM Narrative Medical decision making narrative: The patient was provided with IV Toradol and Zofran The patient is feeling better after being treated with the Toradol and Zofran she was discharged home with supportive care of Zofran The patient is to follow up with primary care physician in next 2-3 days or to return to the emergency department should any of the signs or symptoms worsen or new symptoms develop. The patient agrees with the following Diagnosis and Treatment plan and the patient will be discharged home. Discharge Plan Discharge Chief Complaint: Nausea/Vomiting/Diarrhea Clinical Impression: Gastroenteritis, Migraine Patient Disposition: Home, Self-Care Time of Disposition Decision: 10:24 Condition: Good Prescriptions / Home Meds: New ondansetron 4 mg tablet,disintegrating 4 mg PO Q8H PRN (Reason: nausea and vomiting) 2 Days Qty: 6 0RF No Action norgestimate-ethinyl estradiol [Sprintec (28)] 0.25-0.035 mg tablet 1 tab PO DAILY Print Language: Slovenian Instructions: Gastroenteritis (DC) Referrals: MINAL NEWMAN [Primary Care Provider, Unknown] - 1 week Discharge Date/Time: 10/30/24 10:58
[2024-10-30] MEDS: KETOROLAC TROMETHAMINE 30 MG/ML VIAL IVP (09:36)
[2024-10-30] MEDS: ONDANSETRON PF 4 MG/2 ML VIAL IV (09:36)
== END 2024-10-30 10:58 | disposition home or self-care (01) ==
PROVIDERS: Emergency Provider Emergency Medicine; PCP Family Medicine
DX: K52.9 Noninfective gastroenteritis and colitis, unspecified (principal); G43.909 Migraine, unspecified, not intractable, without status migrainosus
CPT/HCPCS: 99284; J1885; J2405

== ENCOUNTER 2025-01-17 09:45 | Emergency (ER) | payer OTHER, SELFPAY ==
[2025-01-17 09:56] VITALS: BP 133/91; PULSE 84; TEMP 36.8; O2SAT 98; BMI 42.5
--- OUTSIDE RECORDS SUMMARY | 2025-01-17 10:13 | XMS_ITS | CCD ---
Author Organization [facility] Care Team Providers Care Bulk Plant Agent Name Role Phone Unavailable Primary Care Provider UnavailBALTA Ziegler Attending Unavailable MINAL NEWMAN Primary Care Unavailable MINAL NEWMAN Primary Care Unavailable REMA COHEN Attending Unavailable DIAB ., ROSA Admitting Unavailable MINAL NEWMAN Primary Care Unavailable DIAB ., ROSA Attending Unavailable DIAB ., ROSA Consulting Unavailable MISC, DR MUNOZ Primary Care Unavailable MARKER ., DR MORIN Admitting Unavailable MARKER ., DR MORIN Attending Unavailable MARKER ., DR MORIN Consulting Unavailable MISC, DR MUNOZ Primary Care Unavailable GIRISH MCCLOUD Admitting Unavailable GIRISH MCCLOUD Attending Unavailable GIRISH MCCLOUD Consulting Unavailable KATIE ., STEFANIE Admitting Unavailable MISC, DR MUNOZ Primary Care Unavailable KATIE ., STEFANIE Attending Unavailable KATIE ., STEFANIE Consulting Unavailable TRACEY PETERS Consulting Unavailable DO Minal Newman Primary Care Provider [phone] GRICELDA Platt Emergency Provider [phone] MINAL NEWMAN Primary Care Physician [phone] GRICELDA Beth Emergency Provider [phone] NONE, XXXX Primary Care Physician Unavailab le Toya Platt Attending Unavailable Minal Newman Primary Care Unavailable Toya Platt Admitting Unavailable Ignacia, Teja Admitting Unavailable Nikolay Bethothy Attending Unavailable Minal Newman Primary Care Unavailable Ignacia, Teja Admitting Unavailable Nikolay Bethothy Attending Unavailable Minal Newman Primary Care Unavailable Rosalee Mcleod Unavailable Minal Newman DO Primary Care Provider Minal Newman DO Unavailable Troy Treadwell Attending Unavailable DO Deana Mohan Attending Unavailable Hajdari, Astrit H Attending Unavailable Mile, Troy SHaroon Attending Unavailable EDNA KIDD Attending Unavailable Hajdari, Astrit H Attending Unavailable Satish Thao Attending Unavailable Nikolay Valencia Attending Unavailable Gus Mcgowan Attending Unavailable Hajdari, Astrit H Attending Unavailable Troy Treadwell SHaroon Attending Unavailable BLAKE GUEVARA Attending Unavailable BLAKE GUEVARA Referring Unavailable BLAKE GUEVARA Attending Unavailable Froylan Guaman Attending Unavailable Froylan Guaman Attending Unavailable Hajdari, Astrit H Attending Unavailable Hajdari, Astrit H Attending Unavailable Fay Cheney Attending Unav ailable Allergies Allergy Classification Reported Allergen(s) Allergy Type Date of Onset Reaction(s) Facility (17 sources) Latex; Translations: [Latex] Drug Allergy 2 Unknown, Swelling [facility] (1 source) Latex Drug allergy (disorder) 3 [facility] Repository (1 source) Latex rubber gloves Drug allergy Unknown [facility] Other (2 sources) mosquito Propensity to adverse reactions 5 Swelling [facility] (6 sources) Latex Allergy to substance 2 Hives [facility] (6 sources) Mosquito (Diagnostic) Drug Allergy 3 [facility] (1 source) nutella Allergy to substance 5 Throat itchy and swelling [facility] Medications Current Medications Medication Drug Class(es) Dates Sig (Normalized) Sig (Original) amoxicillin 875 mg oral tablet (1 source) Penicillin-class Antibacterial Start: 11-29-2022 End: 12-09-2022 take 1 tablet by mouth twice daily amoxicillin 875 mg Tab 875 mg = 1 tab(s), Oral, BID, X 10 day(s), # 20 tab(s), Refills(s) 0, Pharmacy: [facility] [id number], 164, cm, 11/29/22 9:25:00 EDT, Height/Length Dosing, 97.8, kg, 11/29/22 9:25:00 EDT, Weight Dosing Start Date: 11/29/22 Stop Date: 12/09/22 Status: Ordered amoxicillin 875 mg / clavulanate 125 mg oral tablet (1 source) Penicillin-class Antibacterial Start: 06-12-2023 take 1 tablet by mouth every twelve hours Amoxicillin-Pot Clavulanate 875-125 MG 1 tablet Orally every 12 hrs for 10 day(s) May, Active Apple Cider Vinegar (1 source) Start: 09-20-2024 apple cider vinegar Active PO Daily September 20, 2024 12:00am Biotin (1 source) Start: 09-20-2024 biotin (Hair, Skin and Nails (biotin)) Active PO Daily September 20, 2024 12:00am cefpodoxime 200 mg oral tablet (1 source) Cephalosporin Antibacterial Start: 06-23-2023 End: 07-03-2023 take 1 tablet by mouth every twelve hours cefpodoxime 200 mg Tab 200 mg = 1 tab(s), Oral, q12hr, X 10 day(s), # 20 tab(s), Refills(s) 0, Pharmacy: [id number], 164, cm, 06/22/23 20:52:00 EST, Height/Length Dosing, 95.7, kg, 06/22/23 20:52:00 EST, Weight Dosing Start Date: 06/23/23 Stop Date: 07/03/23 Status: Ordered cephalexin 500 mg oral capsule (2 sources) Cephalosporin Antibacterial Start: 11-25-2024 End: 12-02-2024 take 1 capsule by mouth every six hours Keflex 500 mg Cap 500 mg = 1 cap(s), Oral, q6hr, X 7 day(s), # 28 cap(s), Refills(s) 0, Pharmacy: [facility], 160, cm, 11/25/24 16:07:00 EDT, Height/Length Dosing, 110, kg, 11/25/24 16:07:00 EDT, Weight Dosing Start Date: 11/25/24 Stop Date: 12/02/24 Status: Ordered Quantity: 28.0 Unit: cap(s) Repeat number: 1 Start: 11-14-2022 End: 11-21-2022 take 1 capsule by mouth every six hours Keflex 500 mg Cap 500 mg = 1 cap(s), Oral, q6hr, X 7 day(s), # 28 cap(s), Refills(s) 0 Start Date: 11/14/22 Stop Date: 11/21/22 Status: Ordered dextromethorphan hydrobromide 15 mg / guaiFENesin 400 mg / pseudoephedrine hydrochloride 60 mg oral tablet (1 source) alpha-Adrenergic Agonist, Uncompetitive P-xbiomk-O-aspartate Receptor Antagonist, Sigma-1 Agonist Start: 06-12-2023 take 4 tablets by mouth every twenty-four hours as needed Capmist DM 60-15-400 MG as needed Orally every 4-6 hours as needed, max 4 tablets in 24 hours for 5 days May, Active ethinyl estradiol 0.035 mg / norgestimate 0.25 mg oral tablet (4 sources) Progestin, Estrogen Start: 09-27-2024 End: 09-27-2025 take 1 tablet by mouth once daily norgestimate-ethiny l estradiol (Sprintec 28) 0.25-35 MG-MCG tablet Indications: PCOS (polycystic ovarian syndrome) Take 1 tablet by mouth Daily 28 tablet 12 09/27/2024 09/27/2025 Active methylPREDNISolone 4 mg oral tablet (1 source) Corticosteroid Start: 06-12-2023 methylPREDNISolone 4 MG as directed Orally daily dose take half with breakfast half with dinner for 6 May, Active naproxen 500 mg oral tablet (17 sources) Nonsteroidal Anti-inflammatory Drug Start: 10-22-2022 End: 07-03-2023 naproxen (Naprosyn) 500 MG tablet oxymetazoline hydrochloride 0.5 mg/ml nasal spray (4 sources) Start: 01-16-2023 Mirza-Synephrine 12 Hour Extra Moisturizing 0.05% nasal spray 2 spray(s), Nasal, BID, 15 mL, Refill(s) 0, [facility] [id number], 164, cm, 01/16/23 15:42:00 EDT, Height/Length Dosing, 97.8, kg, 01/16/23 15:42:00 EDT, Weight Dosing Start Date: 01/16/23 Status: Ordered phenazopyridine hydrochloride 100 mg oral tablet (2 sources) Start: 11-25-2024 End: 11-28-2024 take 1 tablet by mouth three times daily Pyridium 100 mg Tab 100 mg = 1 tab(s), Oral, TID, X 3 day(s), # 9 tab(s), Refills(s) 0, Pharmacy: [facility], 160, cm, 11/25/24 16:07:00 EDT, Height/Length Dosing, 110, kg, 11/25/24 16:07:00 EDT, Weight Dosing Start Date: 11/25/24 Stop Date: 11/28/24 Status: Ordered Quantity: 9.0 Unit: tab(s) Repeat number: 1 Start: 11-14-2022 End: 11-16-2022 take 1 tablet by mouth three times daily Pyridium 200 mg Tab 200 mg = 1 tab(s), Oral, TID, X 2 day(s), # 6 tab(s), Refills(s) 0 Start Date: 11/14/22 Stop Date: 11/16/22 Status: Ordered phentermine hydrochloride 37.5 mg oral tablet (5 sources) Sympathomimetic Amine Anorectic Start: 09-20-2024 take 1 tablet by mouth before mealtime phentermine (Adipex-P) 37.5 MG tablet Take 37.5 mg by mouth in the morning. Take before meals. 09/20/2024 Active Start: 09-20-2024 take 0.5 tablet by m outh once daily in the morning Phentermine 37.5 mg tablet Active 37.5 MG PO Daily September 20, 2024 12:00am Take early AM to avoid insomnia. Take half tab days 1-7. predniSONE 20 mg oral tablet (1 source) Start: 08-10-2023 End: 08-14-2023 take 2 tablets by mouth once daily predniSONE 20 mg Tab 40 mg = 2 tab(s), Oral, Daily, X 4 day(s), # 8 tab(s), Refills(s) 0, Pharmacy: [facility], 165, cm, 08/10/23 23:00:00 EDT, Height/Length Dosing, 103.6, kg, 08/10/23 23:00:00 EDT, Weight Dosing Start Date: 08/10/23 Stop Date: 08/14/23 Status: Ordered prochlorperazine 10 mg oral tablet (1 source) Phenothiazine Start: 11-09-2022 End: 11-16-2022 take 1 tablet by mouth three times daily Compazine 10 mg oral tablet = 1 tab(s), Oral, TID, X 7 day(s), # 21 tab(s), Refills(s) 0 Start Date: 11/09/22 Stop Date: 11/16/22 Status: Ordered Completed/Discontinued Medications Medication Drug Class(es) Dates Sig (Normalized) Sig (Original) [id number] actuat albuterol 0.09 mg/actuat metered dose inhaler (2 sources) beta2-Adrenergi c Agonist Start: 09-10-2023 End: 09-27-2024 take 2 puff(s) by inhalation every six hours for wheezing albuterol HFA (Ventolin HFA) 90 mcg/act inhaler Indications: Mild intermittent reactive airway disease without complication (CMS/HCC) Inhale 2 puffs every 6 (six) hours if needed for wheezing or shortness of breath 1 g 3 09/10/2023 09/27/2024 Discontinued (Side effects) Brompheniramine / Pseudoephedrine (1 source) alpha-Adrenergi c Agonist take 10 mL by mouth every four hours as needed Bromfed DM 30-2-10 MG/5ML 10 ml as needed Orally every 4 hrs Not-Taking/PRN Ethinyl Estradiol / Ferrous fumarate / Norethindrone (7 sources) Estrogen Start: 09-13-2023 End: 09-27-2024 norethindrone-ethin yl estradiol (Blisovi FE 06/19) 1-20 MG-MCG tablet Indications: Encounter for surveillance of contraceptive pills Take 1 tablet by mouth Daily 84 tablet 1 09/13/2023 09/27/2024 Discontinued (Side effects) Start: 12-21-2022 take 1 tablet by flavio th once daily Blisovi FE 06/19 1-20 MG-MCG tablet Indications: Encounter for surveillance of contraceptive pills TAKE ONE TABLET BY MOUTH DAILY 84 tablet 1 12/21/2022 Active Start: 03-05-2022 End: 05-26-2024 Norethindrone-E.Estradiol-Ir on (Blisovi Fe 06/19 ()) 1 mg-20 mcg (21)/75 mg (7) tablet Discontinued 1 TAB PO Daily March 05, 2022 12:00am May 26, 2024 5:11pm Start: 03-05-2022 Norethindrone- E.Estradiol-Iron (Blisovi Fe 06/19 ()) 1 mg-20 mcg (21)/75 mg (7) tablet Active 1 TAB PO Daily March 05, 2022 12:00am fluticasone propionate 0.05 mg/actuat metered dose nasal spray (2 sources) Corticosteroid Start: 05-26-2024 End: 09-20-2024 take 1 spray(s) nasal route once daily Fluticasone Propionate (Flonase Allergy Relief) 50 mcg/actuation spray,suspension Discontinued 1 SPRAY INTRANASAL Daily May 26, 2024 1:00am September 20, 2024 1:47pm administer into each nostril Start: 12-22-2022 take 1 spray(s) nasa l route once daily as needed Flonase Allergy Relief 50 MCG/ACT 1 spray in each nostril Nasally Once a day for 30 day(s) Nov, Not-Taking/PRN loratadine 10 mg oral tablet (1 source) Start: 05-26-2024 End: 09-20-2024 take 1 tablet by mouth once daily Loratadine (Claritin) 10 mg tablet Discontinued 10 MG PO daily 7 May 26, 2024 1:00am September 20, 2024 1:47pm 24 hr loratadine 10 mg / pseudoephedrine sulfate 240 mg extended release oral tablet (1 source) alpha-Adrenergic Agonist Start: 12-22-2022 take 1 tablet by mouth every twenty-four hours Claritin-D 24 Hour 10-240 MG 1 tablet as needed Orally Once a day for 30 day(s) Nov, Not-Taking/PRN montelukast 10 mg oral tablet (2 sources) Leukotriene Receptor Antagonist Start: 09-10-2023 End: 09-27-2024 take 1 tablet by mouth at bedtime montelukast (Singulair) 10 MG tablet Indications: Mild intermittent reactive airway disease without complication (CMS/HCC) Take 1 tablet (10 mg) by mouth at bedtime 90 tablet 09/10/2023 09/27/2024 Discontinued (Therapy completed) 2 ml penicillin g benzathine [id number] unt/ml / penicillin g procaine [id number] unt/ml prefilled syringe (1 source) Penicillin-class Antibacterial Bicillin C-R [id number] UNIT/2ML 2 ml Intramuscular Not-Taking/PRN promethazine hydrochloride 25 mg oral tablet (1 source) Phenothiazine Start: 03-19-2023 End: 05-26-2024 take 1 tablet by mouth three times daily as needed for nausea and vomiting Promethazine 25 mg tablet Discontinued 25 MG PO Three times daily as needed for nausea and vomiting March 19, 2023 12:00am May 26, 2024 5:11pm sulfamethoxazole 800 mg / trimethoprim 160 mg oral tablet (2 sources) Dihydrofolate Reductase Inhibitor Antibacterial, Sulfonamide Antimicrobial Start: 12-19-2022 End: 03-19-2023 take 1 tablet by mouth twice daily Sulfamethoxazole-T rimethoprim (Bactrim Ds) 800-160 mg tablet Discontinued 1 TAB PO Twice daily December 19, 2022 12:00am March 19, 2023 9:55am Problems Active Problems Problem Classification Problem Date Documented Da te Episodic/Chronic Abdominal pain (1 source) Abdominal pain; Translations: [Unspecified abdominal pain] Onset: 06-23-2023 Episodic Acute and chronic tonsillitis (6 sources) Chronic adenotonsillitis; Translations: [Chronic tonsillitis and adenoiditis] Onset: 2022 2022 Chronic Diabetes mellitus without complication (2 sources) Prediabetes; Translations: [Prediabetes] 09-20-2024 Episodic Genitourinary symptoms and ill-defined conditions (4 sources) Dysuria; Translations: [DYSURIA] Onset: 06-17-2022 Episodic Headache; including migraine (20 sources) Migraine, unspecified, not intractable, without status migrainosus; Translations: [Migraine] Onset: 06-08-2022 Chronic Comment on above: Problem List clean-u p per request of Phys. EHR Cmte Headache; including migraine (1 source) Headache; Translations: [Headache, unspecified] Onset: 01-29-2023 Episodic Headache; including migraine (4 sources) Headache; including migraine; Translations: [HEADACHE UNSPECIFIED] Onset: 08-26-2022 Nonspecific chest pain (4 sources) Chest pain, unspecified; Translations: [Chest pain] Onset: 07-13-2022 Episodic Other bone disease and musculoskeletal deformities (1 source) Chondrocostal junction syndrome [Tietze]; Translations: [CHONDROCOSTAL JUNCTION SYND TIETZE] Onset: 07-15-2022 Episodic Other congenital anomalies (1 source) Congenital anomaly of pituitary gland; 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] Chronic Other endocrine disorders (4 sources) Polycystic ovary syndrome; Translations: [Polycystic ovarian syndrome] 10-01-2024 Chronic Other lower respiratory disease (1 source) Pleurodynia; 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] Onset: 08-04-2022 Episodic Other nutritional; endocrine; and metabolic disorders (15 sources) Body mass index 30+ - obesity; Translations: [Body mass index (BMI) 35.0-35.9, adult] Onset: 06-25-2023 Resolved: 06-27-2023 06-20-2023 Chronic Other nutritional; endocrine; and metabolic disorders (6 sources) Obesity caused by energy imbalance; Translations: [Morbid (severe) obesity due to excess calories] Onset: 2022 2022 Chronic Other nutritional; endocrine; and metabolic disorders (1 source) Body mass index 40+ - severely obese; Translations: [Morbid (severe) obesity due to excess calories] 09-20-2024 Chronic Other nutritional; endocrine; and metabolic disorders (1 source) Morbid (severe) obesity due to excess calories; Translations: [Morbid obesity] 09-20-2024 Chronic Other screening for suspected conditions (not mental disorders or infectious disease) (4 sources) Patient encounter status; Translations: [Encounter for screening for malignant neoplasm of cervix] 10-01-2024 Episodic Other upper respiratory disease (6 sources) Seasonal allergy; Translations: [Other seasonal allergic rhinitis] Onset: 06-25-2023 06-25-2023 Chronic Other upper respiratory disease (1 source) Bleeding from nose; Translations: [Epistaxis] Onset: 01-16-2023 Episodic Other upper respiratory infections (9 sources) Acute upper respiratory infection, unspecified; Translations: [Acute pharyngitis] Onset: 05-20-2022 Episodic Substance-related disorders (8 sources) Smoker; Translations: [Nicotine dependence, unspecified, uncomplicated] Onset: 10-19-2023 08-10-2023 Chronic Comment on above: Added secondary to d ocumentation in Social History. 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; 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] Onset: 2022 Resolved: 06-27-2023 06-27-2023 Chronic Other hereditary and degenerative nervous system conditions (6 sources) Chorea; 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] Onset: 2022 Resolved: 06-27-2023 06-27-2023 Chronic Skin and subcutaneous tissue infections (7 sources) Abscess; Translations: [Cutaneous abscess, unspecified] Onset: 12-19-2022 12-19-2022 Episodic Results Test Name Value Interpretation Reference Range Facility ED Clinical Summaryon 2024 ED Clinical Summary ED Clinical Summary [place] [id number] ED Clinical Summary Person Information Name: OSMAN COHEN [facility] Age: 24 Years : 2000 Sex: Female Language: Georgian PCP: MINAL NEWMAN DO Marital Status: Single Visit Id: Visit Reason: Vomiting; Nausea; Headache; MIGRAINE, N/V Speciality: Acuity: 3 Enc Type: Emergency Med Service: Emergency Arrival: 01/02/2025 22:50:58 Discharge: 01/03/2025 02:19:23 LOS: 000 03:29 Checkin: 01/02/2025 22:50:58 Checkout: 01/03/2025 02:19:23 Dispo Type: Home (Routine DC) EVENTS: Event Name Event Status Request Date/Time Start Date/Time Complete Date/Time Arrive Complete 01/02/2025 22:50:58 01/02/2025 22:50:58 01/02/2025 22:50:58 Document Home Meds Request 01/02/2025 22:50:58 Triage Complete 01/02/2025 22:50:58 01/02/2025 23:14:25 01/02/2025 23:14:25 Registration Complete 01/02/2025 23:00:41 01/02/2025 23:00:41 01/02/2025 23:00:41 Reg Complete Request 01/02/2025 23:00:41 Reg Bed Request Complete 01/02/2025 23:00:41 01/02/2025 23:00:41 01/02/2025 23:00:41 Bed Assign Complete 01/02/2025 23:07:52 01/02/2025 23:07:52 01/02/2025 23:07:52 Dr Exam Complete 01/02/2025 23:07:52 01/02/2025 23:08:28 01/02/2025 23:08:28 RN Exam Complete 01/02/2025 23:07:52 01/03/2025 00:32:13 01/03/2025 00:32:13 Registration Request 01/02/2025 23:08:28 Dr Exam Complete 01/02/2025 23:09:44 01/02/2025 23:09:44 01/02/2025 23:09:44 Meds Admin Request 01/02/2025 23:24:48 Discharge Complete 01/03/2025 02:01:40 01/03/2025 02:22:30 01/03/2025 02:22:30 Transfer Complete 01/03/2025 02:22:30 01/03/2025 02:22:30 01/03/2025 02:22:30 ADDR[place]: [place] [id number] PHYS DOC NOTES: MEDICAL INFORMATION: Prescriptions Given: New Medications [facility], [address] [place], [place] [id number], [phone] APAP/butalbital/caf feine (Fioricet oral capsule) 1 Capsules By Mouth every 4 hours. Refills: 0. ondansetron (ondansetron 4 mg Dis Tab) 1 Tablets By Mouth As Directed for 30 Days. Refills: 0. Medications to Continue with No Changes Other Medications dicyclomine (Bentyl 10 mg Cap) 2 Capsules By Mouth 4 times a day. Refills: 0. pantoprazole (Pantoprazole [address] Tab) 1 Tablets By Mouth every day. Refills: 0. PATIENT EDUCATION INFORMATION: Instructions: Migraine Headache Follow up: With: Address: When: MINAL NEWMAN DO [address], [address] [place] [address] In 3 days 01/05/2025 DIAGNOSIS: 1:Migraine [facility] ED Note-Physicianon 01-04-20 ED Note-Physician ED Note-Physician Basic Information Time Seen: Fay Cheney D.O. 01/02/2025 23:09 Chief Complaint pt to ED with c/o migraine. states hx. n/v. states normal migraine. History of Present Illness 24 year old female who has a headache. She does have a history of migraine cephalgia. So she is accustomed to these symptoms and this does seem like her normal pattern. She stated that it was gradual in onset began at 6 AM after she woke up. It was associated with photophobia and nausea. The patient stated that it was preceded by a migraine aura which she has had before. She has some visual scotoma. Pain is a 9 out of 10. Lights make it worse. Nothing makes it better. She tried Tylenol 3 g at home and it has not helped with her headache. Her last migraine headache was 3-1/2 months ago and she had to come to the emergency department. Since then she has been managing well. She is not on any prophylactic medication. She does not have any specific rescue medication at home. Review of Systems 10 systems were reviewed. Unless indicated in a detailed history of present illness, all other systems reviewed, unremarkable, or noncontributory. Physical Exam Vitals & Measurements T: 36.7 ???C(Oral) HR: 67(Monitored) RR: 16 BP: 106/67 SpO2: 99% HT: 160 cm WT: 110.8 kg BMI: 43.28 Introduced myself to the patient. My hands were washed with hospital supplied hand jewelry setter and then nonlatex gloves were applied. I obtained permission from the patient to examine them. General: Patient is alert and oriented to person place and time. They are able to provide their own history. Patient appears to be nontoxic although in mild distress. Skin: Skin is pink warm and dry without any evidence of rashes or lesions. Head: Normocephalic atraumatic. Neck: Trachea is midline, airway is intact, no evidence of anterior posterior cervical adenopathy. Eye: Pupils are equal round and reactive. Extraocular muscles are intact. No evidence of vertical or horizontal nystagmus. Conjunctiva is normal. No evidence of scleral icterus. glasses ENMT: Dentition is intact, mucous membranes are moist. No evidence of nasal discharge. Cardiovascular: Regular rate and rhythm without any clicks, murmurs, rubs. The patient does not have any evidence of peripheral edema. Respiratory: Lungs are clear to auscultation without any rhonchi, rales, wheezing. Patient speaks in full sentences does not appear toxic or in any acute distress. Gastrointestinal: No masses appreciated. No obvious hernias. Normal bowel sounds. No fluid wave. No abdominal tenderness. Extremities: Patient moves all 4 extremities symmetrically. No evidence of gross deformity, swelling, or tenderness. Neurological: oriented x 4, LOC appropriate for age, CN II-XII intact, motor strength equal & normal bilaterally, sensation equal & normal bilaterally, speech normal Psychiatric: cooperative, affect appropriate for age, normal judgement, normal psychiatric thoughts. After the patient was examined by close removed and my hands were re-sanitized. The patient was informed of all abnormal physical exam findings. Medical Decision Making Medical Decision Making and Clinical Course Summary: 24 year old female who has a headache. She does have a history of migraine cephalgia. So she is accustomed to these symptoms and this does seem like her normal pattern. She stated that it was gradual in onset began at 6 AM after she woke up. It was associated with photophobia and nausea. The patient stated that it was preceded by a migraine aura which she has had before. She has some visual scotoma. Pain is a 9 out of 10. Lights make it worse. Nothing makes it better. She tried Tylenol 3 g at home and it has not helped with her headache. Her last migraine headache was 3-1/2 months ago and she had to come to the emergency department. Since then she has been managing well. She is not on any prophylactic medication. She does not have any specific rescue medication at home. Additional Historian: none Medical Records Reviewed: The patient had her imaging studies reviewed I was able to find that she did have her head image January 29, 2023. There is no indication for rescanning this patient. Labs ordered: none Imaging Ordered: none Interpretation of Labs/Imaging: NA Medications administered: 0.9% normal saline 1 L bolus Toradol 15 mg IV push Benadryl 50 mg IV push Reglan 10 mg IV. Back Reassessment: 00:34 Went to reassess, RN pushing migraine medications. 01:56 pain is now a 2 out of 10 and tolerable and the patient feels safe going home. Disposition: Discharged home in stable condition Plan: Patient should increase fluids. Will send her home with Fioricet and antiemetic therapy. Prior to the patient being discharged, all aspects of the visit were revisited. I am made certain that the patient's complaint was understood. I went over all of the laboratories and images that were performed and I even went through why we did not do testi (more content not included)... Normal [facility] Comment on above: Result Comment: Elec tronically Signed By: Fay Cheney D.O.\.br\Date and Time Signed: 01/03/25 02:01 EDT ED Patient Summaryon 025 ED Patient Summary ED Patient Summary [address] [address] Patient Discharge Instructions Person Information Name: OSMAN COHEN Age: 24 Years Arrival Date: 01/02/2025 22:50:58 Discharge Diagnosis: 1:Migraine Primary Care Physician: MINAL NEWMAN DO Provider Information Primary Provider: Fay Cheney D.O. Advanced Brand Lead:None The exam and treatment you received in the Emergency Department were for an urgent problem and are not intended as complete care. It is important that you follow up with a doctor, nurse practitioner, or physician???s administrative assistant for ongoing care. If your symptoms become worse or you do not improve as expected and you are unable to reach your usual health care provider, you should return to the Emergency Department. We are available 24 hours a day. OSMAN COHEN Ramu has been given the following list of patient education materials, prescriptions and follow-up instructions: Follow-up Instructions: With: Address: When: TRENT CHRISTOPHER IMNAL [address] [place] [address] In 3 days 01/05/2025 In the event that this physician does not participate in your insurance network, please consult with your insurance company to find a nearby participating provider. Patient Education Materials: Migraine Headache A MESSAGE TO ALL PATIENTS REGARDING OPIOIDS PRESCRIPTION OPIOIDS: WHAT YOU NEED TO KNOW Prescription opioids can be used to help relieve pxnhljyg-la-ffnpuo pain and are often prescribed following a surgery or injury, or for certain health conditions. These medications can be an important part of the treatment but also come with serious risks. It is important to work with your healthcare provider to make sure you are getting the safest, most effective care. WHAT ARE THE RISKS AND SIDE EFFECTS OF OPIOID USE? Prescription opioids carry serious risks of addiction and overdose, especially with prolonged use. An opioid overdose, often marked by slowed breathing, can cause sudden . The use of prescription opioids can have a number of side effects as well, even when taken as directed: ??? Tolerance???meaning you might need to take more of the medication for the same pain relief ??? Physical dependence???meanin g you have symptoms of withdrawal when a medication is stopped ??? Increased sensitivity to pain ??? Constipation ??? Nausea, vomiting, and dry mouth ??? Sleepiness and dizziness ??? Confusion ??? Depression ??? Low levels of testosterone that can result in lower sex drive, energy, and strength ??? Itching and sweating RISKS ARE GREATER WITH: ??? History of drug misuse, substance use disorder, or overdose ??? Mental health conditions (such as depression or anxiety) ??? Sleep apnea ??? Older age (65 years and older) ??? Avoid alcohol while taking prescription opioids. Also, unless specifically advised by your health care provider, medications to avoid include: ??? Benzodiazepines (such as Xanax or Valium) ??? Muscle relaxants (such as Soma or Flexeril) ??? Hypnotics (such as Ambien or Lunesta) ??? Other prescription opioids KNOW YOUR OPTIONS Talk to your health care provider about ways to manage your pain that don???t involve prescription opioids. Some of these options may actually work better and have fewer risks and side effects. Options may include: ??? Pain relievers such as acetaminophen, ibuprofen, and naproxen ??? Some medication that are also used for depression or seizures ??? Physical therapy and exercise ??? Cognitive behavioral therapy, a psychological, goal-directed approach, in which patients learn how to modify physical, behavioral, and emotional triggers of pain and stress. IF YOU ARE PRESCRIBED OPIOIDS FOR PAIN: ??? Never take opioids in greater amounts or more often than prescribed. ??? Follow up with your primary health care provider. o Work together to create a plan on how to manage your pain. o Talk about ways to help manage your pain that don???t involve prescription opioids. o Talk about any and all concerns and side effects. ??? Help prevent misuse and abuse o Never sell or share prescription opioids. o Never use another person???s prescription opioids. ??? Store prescription opioids in a secure place and out of reach of others (this may include visitors, children, friends, and family). ??? Safely dispose of unused prescription opioids: Find your community drug take-back program or your pharmacy mail-back program, or flush them down the toilet, following guidance from the Food and Drug Administration (www.fda.gov/Drugs/ ResourcesForYou). ??? Visit www.cdc.gov/drugove rdose to learn about the risks of opioids abuse and overdose. ??? If you believe you may be struggling with addiction, tell your health care transitions manager and ask for guidance or baljinder (more content not included)... Normal [facility] BMPon 01-01-2025 Anion gap [Moles/Vol] 13 mmol/L Normal 6-16 [facility] Comment on above: Performed By: #### 2 [id number] #### [facility] [address] [place] [address] BUN/Creat Ratio 14 No Units Normal 10-20 [facility] Comment on above: Performed By: #### 2 [id number] #### [facility] [address] [place] [address] Calcium [Mass/Vol] 9.2 mg/dL Normal 8.9-11.1 [facility] Comment on above: Performed By: #### 2 [id number] #### [facility] [address] [place] [address] Chloride [Moles/Vol] 105 mmol/L Normal 101-111 [facility] Comment on above: Performed By: #### 2 [id number] #### [facility] [address] [place] [address] CO2 [Moles/Vol] 24 mmol/L Normal 21-31 [facility] Comment on above: Performed By: #### 2 [id number] #### [facility] [address] [place] [address] Creatinine [Mass/Vol] 0.7 mg/dL Normal 0.5-1.3 [facility] Comment on above: Performed By: #### 2 [id number] #### [facility] [address] [place] [address] Glucose [Mass/Vol] 118 mg/dL Normal 55-199 [facility] Comment on above: Performed By: #### 2 [id number] #### [facility] [address] [place] [address] Potassium [Moles/Vol] 3.7 mmol/L Normal 3.5-5.3 [facility] Comment on above: Performed By: #### 2 [id number] #### [facility] [address] [place] [address] Sodium [Moles/Vol] 138 mmol/L Normal 135-145 [facility] Comment on above: Performed By: #### 2 [id number] #### [facility] [address] [place] [address] Urea nitrogen [Mass/Vol] 10 mg/dL Normal 5-21 [facility] Comment on above: Performed By: #### 2 [id number] #### [facility] [address] [place] [address] CBC w/ Auto Diffon 5 Basophil Absolute 0.0 E9/L Normal 0.0-0.2 [facility] Comment on above: Performed By: #### 2 [id number] #### [facility] [address] [place] [address] Basophils/100 WBC (Bld) 0.5 % Normal 0.0-2.0 [facility] Comment on above: Performed By: #### 2 [id number] #### [facility] [address] [place] [address] Eos Absolute 0.1 E9/L Normal 0.0-0.5 [facility] Comment on above: Performed By: #### 2 [id number] #### [facility] [address] [place] [address] Eosinophils/100 WBC (Bld) 1.5 % Normal 0.0-8.0 [facility] Comment on above: Performed By: #### 2 [id number] #### [facility] [address] [place] [address] Erythrocyte distribution width (RBC) [Ratio] 13.2 % Normal 10.9-14.2 [facility] Comment on above: Performed By: #### 2 [id number] #### [facility] [address] [place] [address] Hematocrit (Bld) [Volume fraction] 40.6 % Normal 34.0-46.0 [facility] Comment on above: Performed By: #### 2 [id number] #### [facility] [address] [place] [address] Hemoglobin (Bld) [Mass/Vol] 13.7 g/dL Normal 12.0-16.0 [facility] Comment on above: Performed By: #### 2 [id number] #### [facility] [address] [place] [address] Lymph Absolute 2.5 E9/L Normal 1.0-4.0 [facility] Comment on above: Performed By: #### 2 [id number] #### [facility] [address] [place] [address] Lymphocytes/100 WBC (Bld) 34.6 % Normal 14.0-50.0 [facility] Comment on above: Performed By: #### 2 [id number] #### [facility] [address] [place] [address] MCH (RBC) [Entitic mass] 25.4 pg Low 27.0-34.0 [facility] Comment on above: Performed By: #### 2 [id number] #### [facility] [address] [place] [address] MCHC (RBC) [Mass/Vol] 33.8 g/dL Normal 31.4-36.0 [facility] Comment on above: Performed By: #### 2 [id number] #### [facility] [address] [place] [address] MCV (RBC) [Entitic vol] 75.1 fL Low 80.0-100.0 [facility] Comment on above: Performed By: #### 2 [id number] #### [facility] [address] [place] [address] Dallam Absolute 0.6 E9/L Normal 0.2-1.0 [facility] Comment on above: Performed By: #### 2 [id number] #### [facility] [address] [place] [address] Monocytes/100 WBC (Bld) 7.6 % Normal 4.0-14.0 [facility] Comment on above: Performed By: #### 2 [id number] #### [facility] [address] [place] [address] Neutro Absolute 4.1 E9/L Normal 2.0-7.5 [facility] Comment on above: Performed By: #### 2 133851 #### [facility] [address] [place] [address] Neutro Auto 55.8 % Normal 36.0-75.0 [facility] Comment on above: Performed By: #### 2 [id number] #### [facility] [address] [place] [address] Platelet 287.0 E9/L Normal 150.0-500.0 [facility] Comment on above: Performed By: #### 2 [id number] #### [facility] [address] [place] [address] Platelet mean volume (Bld) [Entitic vol] 6.4 fL Normal 6.4-10.8 [facility] Comment on above: Performed By: #### 2 [id number] #### [facility] [address] [place] [address] RBC 5.4 E12/L Normal 4.3-5.9 [facility] Comment on above: Performed By: #### 2 478292 #### [facility] [address] [place] [address] WBC 7.3 E9/L Normal 4.0-11.0 [facility] Comment on above: Performed By: #### 2 [id number] #### [facility] [address] [place] [address] ED Clinical Summaryon 2024 ED Clinical Summary ED Clinical Summary [address] [address] ED Clinical Summary Person Information Name: OSMAN COHEN [facility] Age: 24 Years : 2000 Sex: Female Language: Georgian PCP: MINAL NEWMAN DO Marital Status: Single Visit Id: Visit Reason: Abdominal pain; STOMACH PAINS, SORE THROAT FOR LAST 3 DAYS Speciality: Acuity: 4 Enc Type: Emergency Med Service: Emergency Arrival: 01/01/2025 07:16:18 Discharge: 01/01/2025 10:12:31 LOS: 000 02:56 Checkin: 01/01/2025 07:16:18 Checkout: 01/01/2025 10:12:31 Dispo Type: Home (Routine DC) EVENTS: Event Name Event Status Request Date/Time Start Date/Time Complete Date/Time Arrive Complete 01/01/2025 07:16:18 01/01/2025 07:16:18 01/01/2025 07:16:18 Document Home Meds Request 01/01/2025 07:16:18 Triage Complete 01/01/2025 07:16:18 01/01/2025 07:36:43 01/01/2025 07:36:43 Bed Assign Complete 01/01/2025 07:28:07 01/01/2025 07:28:07 01/01/2025 07:28:07 Dr Exam Complete 01/01/2025 07:28:07 01/01/2025 07:32:27 01/01/2025 07:32:27 RN Exam Complete 01/01/2025 07:28:07 01/01/2025 07:37:57 01/01/2025 07:37:57 Registration Complete 01/01/2025 07:29:56 01/01/2025 07:29:56 01/01/2025 07:29:56 Reg Complete Request 01/01/2025 07:29:56 Reg Bed Request Complete 01/01/2025 07:29:56 01/01/2025 07:29:56 01/01/2025 07:29:56 Registration Request 01/01/2025 07:32:27 Pending Labs Complete 01/01/2025 07:43:33 01/01/2025 09:18:19 Lab Complete 01/01/2025 07:43:33 01/01/2025 09:18:19 Urine Collect Complete 01/01/2025 07:43:33 01/01/2025 08:30:17 Consult Request 01/01/2025 07:50:00 Hospitalist Consult Cancel 01/01/2025 07:50:01 01/01/2025 07:51:06 Pending Labs Cancel 01/01/2025 07:50:26 01/01/2025 07:51:06 Pending Labs Complete 01/01/2025 08:19:02 01/01/2025 08:19:02 01/01/2025 08:47:04 Lab Complete 01/01/2025 08:19:02 01/01/2025 08:19:02 01/01/2025 08:47:04 Pending Labs Inlab 01/01/2025 08:32:22 01/01/2025 08:32:22 Meds Admin Complete 01/01/2025 08:57:01 01/01/2025 09:33:41 Discharge Complete 01/01/2025 10:02:19 01/01/2025 10:12:40 01/01/2025 10:12:40 Transfer Complete 01/01/2025 10:12:40 01/01/2025 10:12:40 01/01/2025 10:12:40 ADDRESS: [place] [id number] PHYS DOC NOTES: MEDICAL INFORMATION: Prescriptions Given: New Medications [facility] 1984, [address] [place], [place] [id number], [phone] dicyclomine (Bentyl 10 mg Cap) 2 Capsules By Mouth 4 times a day. Refills: 0. pantoprazole (Pantoprazole [address] Tab) 1 Tablets By Mouth every day. Refills: 0. PATIENT EDUCATION INFORMATION: Instructions: Sore Throat; Abdominal Pain, Adult Follow up: With: Address: When: MINAL DELGADOGABRIELANIK [address], [address] [place] [address] Business (1) In 3 days 01/04/2025 Comments: Return to the emergency room if your abdominal pain gets worse, vomiting, fever, sore throat gets worse, unable to swallow or any new symptoms. DIAGNOSIS: 1:Abdominal pain; 2:Sore throat Normal [facility] ED Note-Physicianon 01-02-20 ED Note-Physician ED Note-Physician Basic Information Time Seen: Tim Knight M.D. 01/01/2025 07:32 Chief Complaint Pt presents to ED with complaints upper abd throbbing x2 days with swollen lymph nodes. denies n/v/d or fever. tolerating PO intake History of Present Illness The patient is a 24-year-old female who presented to the emergency room with abdominal pain and sore throat. The patient stated abdominal pain has been present for past 2 days. She describes the pain as throbbing . She points across to mid upper abdomen. The patient states walking makes the pain worse. She denies any fever, denies any chills. The patient denies any nausea, denies any vomiting. She denies any diarrhea. The patient denies any burning with urination or blood in urine. She denies any vaginal bleeding or vaginal discharge. The patient states for past 3 days she has been having sore throat and her tonsils are swollen. The patient states that she is able to swallow but it hurts. The patient denies any other associated symptoms. Review of Systems Additional ROS info: Except as noted in the above Review of Systems and in the History of Present Illness all other systems have been reviewed and are negative or noncontributory. Physical Exam Vitals & Measurements T: 36.8 ???C(Oral) HR: 69(Peripheral) RR: 18 BP: 135/86 SpO2: 99% HT: 160 cm WT: 112.4 kg BMI: 43.91 General: alert, no acute distress Skin: warm, dry Head: no trauma, normocephalic Neck: Trachea midline, no tenderness, supple Eye: normal conjunctiva, sclera clear ENMT: Oral mucosa moist, no pharyngeal erythema or exudate, the tonsils are swollen. Cardiovascular: regular rate and rhythm Respiratory: Lungs CTA, respirations non labored, breath sounds equal Gastrointestinal: soft, non distended, mild tenderness upper abdomen, no guarding, normal bowel sounds Extremities: no deformity, no trauma Neurological: Alert and oriented, speech normal, no focal neuro deficits Psychiatric: cooperative, affect appropriate for age Medical Decision Making MEDICAL DECISION MAKING Number and Complexity of Problems Differential Diagnosis: [] [facility] Data External documents reviewed: [] My EKG interpretation: [] My CT interpretation: [] My X-ray interpretation: [] My Ultrasound interpretation: [] Decision rules/scores evaluated: [] Discussed with: [] Treatment and Disposition ED Course: The patient presented with abdominal pain sore throat. Unclear etiology of her symptoms. Possible viral. Her abdomen is benign. Does not appear to be surgical. Blood work reviewed. White count is normal. Liver enzymes are normal. Lipase is normal. The urine shows no infection. is negative. Rapid strep is negative. Dallam is negative. The patient was given GI cocktail and her symptoms improved. Will discharge patient home with prescription for Bentyl and PPI. She will follow-up with primary care. She is instructed to return to the emergency room if her symptoms get worse, vomiting, fever or any new symptoms. Shared decision making: [] Code status: [] Assessment/Plan 1. Abdominal pain (R10.9: Unspecified abdominal pain) 2. Sore throat (J02.9: Acute pharyngitis, unspecified) Orders: Al hydroxide/Mg hydroxide/simethico ne, 30 mL, Susp-Oral, Oral, Once, Stop date 01/01/25 8:56:00 EDT, STAT, Start date 01/01/25 8:56:00 EDT atropine/hyoscyamin e/PB/scopolamine, 10 mL, Elixir, Oral, Once, Stop date 01/01/25 8:56:00 EDT, STAT, Start date 01/01/25 8:56:00 EDT dicyclomine, 20 mg = 2 cap(s), Oral, QID, # 20 cap(s), Refills(s) 0, Pharmacy: [facility] 1985, 160, cm, 01/01/25 7:36:00 EDT, Height/Length Dosing, 112.4, kg, 01/01/25 7:36:00 EDT, Weight Dosing lidocaine topical, 200 mg, 10 mL, Soln-Oral, Oral, Once, Stop date 01/01/25 8:56:00 EDT, STAT, Start date 01/01/25 8:56:00 EDT pantoprazole, 40 mg = 1 tab(s), Oral, Daily, # 30 tab(s), Refills(s) 0, Pharmacy: [facility] 1985, 160, cm, 01/01/25 7:36:00 EDT, Height/Length Dosing, 112.4, kg, 01/01/25 7:36:00 EDT, Weight Dosing Basic Metabolic Panel CBC w/ Auto Diff eGFR Group A Strep by PCR Hepatic Function Panel Lipase Level Mononucleosis Screen Rapid Strep w/rfx U Beta Hcg Qual UA with Cult Rflx Medications Administered Given Al hydroxide/Mg hydroxide/simethico ne 200 mg-200 mg-20 mg/5 mL oral suspension, 30 mL, Oral Elixir, 10 mL, Oral lidocaine Viscous Top 2% Genoveva, 200 mg, Oral Disposition Plan Patient Discharge Condition Stable, improved Discharge Disposition Discharge home Discharge Prescription List Prescriptions Bentyl 10 mg Cap, 20 mg= 2 cap(s), Oral, QID Pantoprazole [address] Tab, 40 mg= 1 tab(s), Oral, Daily Follow-up With When Contact Information MINAL TRENT In 3 days 01/04/[address], [address] [place] [address]- Business (1) Additional Instructions: Return to the emergency room if your abdominal pain gets worse, vomiting (more content not included)... Normal [facility] Comment on above: Result Comment: Elec tronically Signed By: Antonia Singh, Tim Feng\.br\Date and Time Signed: 01/01/25 10:11 EDT ED Patient Summaryon 025 ED Patient Summary ED Patient Summary [place] [id number] Patient Discharge Instructions Person Information Name: OSMAN COHEN Age: 24 Years Arrival Date: 01/01/2025 07:16:18 Discharge Diagnosis: 1:Abdominal pain; 2:Sore throat Primary Care Physician: MINAL NEWMAN DO Provider Information Primary Provider: Tim Knight M.D. Advanced Brand Lead:None The exam and treatment you received in the Emergency Department were for an urgent problem and are not intended as complete care. It is important that you follow up with a doctor, nurse practitioner, or physician???s administrative assistant for ongoing care. If your symptoms become worse or you do not improve as expected and you are unable to reach your usual health care provider, you should return to the Emergency Department. We are available 24 hours a day. OSMAN COHEN has been given the following list of patient education materials, prescriptions and follow-up instructions: Follow-up Instructions: With: Address: When: MINAL NEWMAN [address], [address] [place] [address] Business (1) In 3 days 01/04/2025 Comments: Return to the emergency room if your abdominal pain gets worse, vomiting, fever, sore throat gets worse, unable to swallow or any new symptoms. In the event that this physician does not participate in your insurance network, please consult with your insurance company to find a nearby participating provider. Patient Education Materials: Sore Throat; Abdominal Pain, Adult A MESSAGE TO ALL PATIENTS REGARDING OPIOIDS PRESCRIPTION OPIOIDS: WHAT YOU NEED TO KNOW Prescription opioids can be used to help relieve zpxqbyap-kv-kslczn pain and are often prescribed following a surgery or injury, or for certain health conditions. These medications can be an important part of the treatment but also come with serious risks. It is important to work with your healthcare provider to make sure you are getting the safest, most effective care. WHAT ARE THE RISKS AND SIDE EFFECTS OF OPIOID USE? Prescription opioids carry serious risks of addiction and overdose, especially with prolonged use. An opioid overdose, often marked by slowed breathing, can cause sudden . The use of prescription opioids can have a number of side effects as well, even when taken as directed: ??? Tolerance???meaning you might need to take more of the medication for the same pain relief ??? Physical dependence???meanin g you have symptoms of withdrawal when a medication is stopped ??? Increased sensitivity to pain ??? Constipation ??? Nausea, vomiting, and dry mouth ??? Sleepiness and dizziness ??? Confusion ??? Depression ??? Low levels of testosterone that can result in lower sex drive, energy, and strength ??? Itching and sweating RISKS ARE GREATER WITH: ??? History of drug misuse, substance use disorder, or overdose ??? Mental health conditions (such as depression or anxiety) ??? Sleep apnea ??? Older age (65 years and older) ??? Avoid alcohol while taking prescription opioids. Also, unless specifically advised by your health care provider, medications to avoid include: ??? Benzodiazepines (such as Xanax or Valium) ??? Muscle relaxants (such as Soma or Flexeril) ??? Hypnotics (such as Ambien or Lunesta) ??? Other prescription opioids KNOW YOUR OPTIONS Talk to your health care provider about ways to manage your pain that don???t involve prescription opioids. Some of these options may actually work better and have fewer risks and side effects. Options may include: ??? Pain relievers such as acetaminophen, ibuprofen, and naproxen ??? Some medication that are also used for depression or seizures ??? Physical therapy and exercise ??? Cognitive behavioral therapy, a psychological, goal-directed approach, in which patients learn how to modify physical, behavioral, and emotional triggers of pain and stress. IF YOU ARE PRESCRIBED OPIOIDS FOR PAIN: ??? Never take opioids in greater amounts or more often than prescribed. ??? Follow up with your primary health care provider. o Work together to create a plan on how to manage your pain. o Talk about ways to help manage your pain that don???t involve prescription opioids. o Talk about any and all concerns and side effects. ??? Help prevent misuse and abuse o Never sell or share prescription opioids. o Never use another person???s prescription opioids. ??? Store prescription opioids in a secure place and out of reach of others (this may include visitors, children, friends, and family). ??? Safely dispose of unused prescription opioids: Find your community drug take-back program or your pharmacy mail-back program, or flush them down the toilet, following guidance from the Food and Drug Administration (www.fda.gov/Drugs/ ResourcesForYou). ??? Visit www.cdc (more content not included)... Normal [facility] Grp A Strp PCRon 01-01-2025 Group A Strep Negative Normal Negative [facility] Comment on above: Order Comment: Order Added on by Discern Rule. Result Comment: Test ing performed using DNA amplification. Performed By: #### 1 [id number] #### [facility] [address] [place] [address] Grp A Strp Intrl Ctrl Pass Normal Fis her [facility] Comment on above: Order Comment: Order Added on by Discern Rule. Performed By: #### 1 [id number] #### [facility] [address] [place] [address] Hep Func Panelon 01-01-2025 Albumin [Mass/Vol] 4.1 g/dL Normal 3.3-5.0 [facility] Comment on above: Performed By: #### 2 [id number] #### [facility] [address] [place] [address] Albumin/Globulin [Mass ratio] 1.4 {ratio} Normal 1.1-2.2 [facility] Comment on above: Performed By: #### 2 [id number] #### [facility] [address] [place] [address] Alk Phos 81 Int._Unit/L Normal 21-98 [facility] Comment on above: Performed By: #### 2 [id number] #### [facility] [address] [place] [address] ALT 11 Int._Unit/L Normal 6-46 [facility] Comment on above: Performed By: #### 2 [id number] #### [facility] [address] [place] [address] AST 12 Int._Unit/L Normal 5-43 [facility] Comment on above: Performed By: #### 2 [id number] #### [facility] [address] [place] [address] Bili Direct 0.1 mg/dL Normal 0.0-0.4 [facility] Comment on above: Performed By: #### 2 [id number] #### [facility] [address] [place] [address] Bili Indirect 0.2 mg/dL Normal 0.1-0.9 [facility] Comment on above: Performed By: #### 2 [id number] #### [facility] [address] [place] [address] Bili Total 0.3 mg/dL Normal 0.0-1.1 [facility] Comment on above: Performed By: #### 2 [id number] #### [facility] [address] [place] [address] Globulin (S) [Mass/Vol] 3.0 g/dL Normal 1.4-4.0 [facility] Comment on above: Performed By: #### 2 [id number] #### [facility] [address] [place] [address] Protein [Mass/Vol] 7.1 g/dL Normal 6.0-7.8 [facility] Comment on above: Performed By: #### 2 [id number] #### [facility] [address] [place] [address] Lipase Levelon 01-01-2025 Lipase Lvl 15 unit/L Normal 13-58 [facility] Comment on above: Performed By: #### 2 [id number] #### [facility] [address] [place] [address] Dallam Screenon 01-01-2025 [place]am Scr Negative Normal Negative [facility] Comment on above: Performed By: #### 2 [id number] #### [facility] [address] [place] [address] Rapid Strep w/rfxon 01-02-20 25 S. pyogenes Ag IA Ql (Unsp spec) Negative Normal Negative [facility] Comment on above: Performed By: #### 2 [id number] #### [facility] [address] [place] [address] U BetaHcg Qualon 01-01-2025 U beta hCG Ql Negative Normal [facility] Comment on above: Performed By: #### 2 [id number] #### [facility] [address] [place] [address] UA with Cult Rflxon 01-02-20 25 Color (U) Light-Yellow Normal Yellow [facility] Comment on above: Result Comment: Micr oscopic readings are only performed on those samples that meet specific criteria set forth by [facility]. Performed By: #### 4 [id number] #### [facility] [address] [place] [address] Glucose (U) [Mass/Vol] Negative Normal Negative [facility] Comment on above: Performed By: #### 4 [id number] #### [facility] [address] [place] [address] Ketones Ql (U) Negative Normal Negative [facility] Comment on above: Performed By: #### 4 [id number] #### [facility] [address] [place] [address] UA Blood Trace Abnormal Negative [facility] Comment on above: Performed By: #### 4 [id number] #### [facility] [address] [place] [address] UA Bacteria Trace Normal Trace [facility] Comment on above: Performed By: #### 4 [id number] #### [facility] [address] [place] [address] UA Clarity Turbid Abnormal Clear [facility] Comment on above: Performed By: #### 4 [id number] #### [facility] [address] [place] [address] UA Leuk Est Negative Normal Negative [facility] Comment on above: Performed By: #### 4 [id number] #### [facility] [address] [place] [address] UA Mucous Trace Normal Negative [facility] Comment on above: Performed By: #### 4 [id number] #### [facility] [address] [place] [address] UA Nitrite Negative Normal Negative [facility] Comment on above: Performed By: #### 4 [id number] #### [facility] [address] [place] [address] UA pH 6.0 Invalid Interpretation Code 5.0-9.0 [facility] Comment on above: Performed By: #### 4 [id number] #### [facility] [address] [place] [address] UA Protein Negative Normal Negative [facility] Comment on above: Performed By: #### 4 [id number] #### [facility] [address] [place] [address] UA RBC 4-20 Abnormal 0-3 [facility] Comment on above: Performed By: #### 4 [id number] #### [facility] [address] [place] [address] UA Spec Grav 1.025 Invalid Interpretation Code 1.005-1.030 [facility] Comment on above: Performed By: #### 4 [id number] #### [facility] [address] [place] [address] UA Squam Epithelial >10 Invalid Interpretation Code [facility] Comment on above: Performed By: #### 4 [id number] #### [facility] [address] [place] [address] UA Urobilinogen Negative Normal Negative [facility] Comment on above: Performed By: #### 4 [id number] #### [facility] [address] [place] [address] UA WBC 0-5 Normal 0-5 [facility] Comment on above: Performed By: #### 4 [id number] #### [facility] [address] [place] [address] Urobilinogen (U) [Mass/Vol] Negative Normal Negative [facility] Comment on above: Performed By: #### 4 [id number] #### [facility] [address] [place] [address] UA Spec Desc Clean Catch Normal [facility] Comment on above: Performed By: #### 4 [id number] #### [facility] [address] [place] [address] eGFRon 01-01-2025 eGFR 125 mL/min/1.73 m2 Normal >=59 [facility] Comment on above: Performed By: #### 1 [id number] #### [facility] [address] [place] [address] ED Note-Physicianon 12-25-19 ED Note-Physician ED Note-Physician Basic Information Time Seen: Stanley MUNOZ, Tavo Flowers 11/25/2024 16:07 Chief Complaint pt reports vaginal redness, pain with urination. has concerns for either UTI/yeast infection. deneis any concern for STD. History of Present Illness 24-year-old female reports emerged department with concerns of some vaginal redness, irritation and concern of possible UTI. Reports history of UTIs. Reports painful urination. No concern for STIs. She reports no chance of . Denies any fevers or chills. No nausea vomiting or back pain. Reports she has irritation when she urinates. This been going on for last couple days. Denies any other complaints. Review of Systems No other aggravating or relieving factors no other associated symptoms no other prior treatments or complaints. Family: Reviewed and noncontributory Social: lives at home Review of systems negative unless otherwise specified in the HPI. Physical Exam Vitals & Measurements T: 36.5 ???C(Oral) HR: 104(Peripheral) RR: 14 BP: 147/86 SpO2: 99% HT: 160 cm WT: 110 kg BMI: 42.97 General: The patient appears well and in no apparent distress. Patient is resting in chair. Afebrile Skin: Warm, dry, no pallor noted. Head: Normocephalic, atraumatic Neck: No JVD Eye: PERRLA, EOMI ENT: Moist mucus membranes Cardiovascular: Regular rate. normal peripheral perfusion Respiratory: No respiratory distress. no accessory muscle use. no obvious audible wheezing Chest Wall: no deformity Musculoskeletal: normal ROM, no deformity, no swelling. Abdomen soft. No rebound tenderness or guarding noted. GI: No obvious distention Neurological: A&O. moves all extremities equal strength and symmetry Psychiatric: Cooperative and appropriate Medical Decision Making 24-year-old female reports for department with concerns of dysuria. Symptoms been going on for last couple days. Concern for UTI. No nausea vomiting belly pain or back pain. Acute concerns we did a urinalysis. Urinalysis is consistent with UTI. Discussed patient was understanding. Placed on Pyridium and Keflex for antibiotic coverage as well as pain relief. Discussed return cautions. Follow-up with your primary care provider in 3 to 5 days. If symptoms worsen, do not improve, or new symptoms arise please report back to emergency department for further evaluation. The patient was understanding and agreeable to plan moving forward. Assessment/Plan UTI (urinary tract infection) (N39.0: Urinary tract infection, site not specified) Orders: cephalexin, 500 mg = 1 cap(s), Oral, q6hr, X 7 day(s), # 28 cap(s), Refills(s) 0, Pharmacy: [facility], 160, cm, 11/25/24 16:07:00 EDT, Height/Length Dosing, 110, kg, 11/25/24 16:07:00 EDT, Weight Dosing phenazopyridine, 100 mg = 1 tab(s), Oral, TID, X 3 day(s), # 9 tab(s), Refills(s) 0, Pharmacy: [facility], 160, cm, 11/25/24 16:07:00 EDT, Height/Length Dosing, 110, kg, 11/25/24 16:07:00 EDT, Weight Dosing U Beta Hcg Qual UA with Cult Rflx Urine Culture Disposition Plan Patient Discharge Condition stable Discharge Disposition to home Discharge Prescription List Prescriptions Keflex 500 mg Cap, 500 mg= 1 cap(s), Oral, q6hr Pyridium 100 mg Tab, 100 mg= 1 tab(s), Oral, TID Follow-up With When Contact Information MINAL NEWMAN In 3 days 11/28/[address], [address] [place] [address]- Business (1) Additional Instructions: Call Dr for diagnosis based follow up Patient Education Urinary Tract Infection, Adult, Bzci-jv-Kmxn Attestation Patient seen and evaluated by the physician administrative assistant. Attending physician was present in the emergency department and supervised care. This visit was performed by both the physician and an APC. I performed all aspects of the MDM as documented. This report was transcribed using voice recognition software. Every effort was made to ensure accuracy, however, inadvertently computerized radio installer automobile mistakes may be present. Appropriate healthcare PPE was used in evaluating this patient. The patient was placed in a mask. The healthcare provider was wearing mask, gloves, and utilizing proper hand hygiene. All equipment was properly cleansed. I performed a substantive part of the MDM during the patient???s E/M visit. I personally made or approved the documented management plan and acknowledge its risk of complications. (Independent Interpretation) My (EKG/X-Ray/US/CT as applicable) interpretation as above. (Discussion) Management/test interpretation discussed with APC. Problem List/Past Medical History Ongoing BMI 35.0-35.9,adult Migraine headache Smoker Historical Migraine Medications Inpatient No active inpatient medications Home Keflex 500 mg Cap, 500 mg= 1 cap(s), Oral, q6hr Pyridium 100 mg Tab, 100 mg= 1 tab(s), Oral, TID Allergies Latex (Swelling) Social History Alcohol - Denies Alcohol Use, 10/22/2022 Substance Abuse - Denies Substance Abuse, 10/23/19 (more content not included)... [facility] Comment on above: Result Comment: Elec tronically Signed By: Tavo Angel PA-C\.br\Date and Time Signed: 11/25/24 20:39 EDT\.br\Electronically Co-Signed By: Froylan Guaman MD\.br\Date and Time Co-Signed: 12/24/24 07:16 EDT C Urineon 11-27-2024 Bacteria identified Cx Nom (U) Microbiology PROCEDURE: Urine Culture [R1] SOURCE: U CleanCatch BODY SITE: COLLECTED DATE/TIME: 11/25/2024 16:11 EDT RECEIVED DATE/TIME: 11/25/2024 18:43 EDT START DATE/TIME: 11/25/2024 18:43 EDT FREE TEXT SOURCE: Tavo Angel PA-C. Tavo Angel PA-C FINAL REPORTS Final Report [] Verified Date/Time: 11/27/2024 06:41 EDT <10,000 cfu/ml Mixed skin contaminants Performing Locations R1: This test was performed at: [facility], [address] [place] [address], [facility]- , , [facility] Comment on above: Performed By: #### 2 [id number] #### [facility] [address] [place] [address] ED Clinical Summaryon 2024 ED Clinical Summary ED Clinical Summary [address] [address] ED Clinical Summary Person Information Name: OSMAN COHEN [facility] Age: 24 Years : 2000 Sex: Female Language: Georgian PCP: MINAL NEWMAN DO Marital Status: Single Visit Id: Visit Reason: Medical problem - minor; Dysuria; Genitourinary problem; URINARY TRACT ISSUE Speciality: Acuity: 4 Enc Type: Emergency Med Service: Emergency Arrival: 11/25/2024 16:01:36 Discharge: 11/25/2024 17:01:44 LOS: 000 01:00 Checkin: 11/25/2024 16:01:36 Checkout: 11/25/2024 17:01:44 Dispo Type: Home (Routine DC) EVENTS: Event Name Event Status Request Date/Time Start Date/Time Complete Date/Time Arrive Complete 11/25/2024 16:01:36 11/25/2024 16:01:36 11/25/2024 16:01:36 Document Home Meds Request 11/25/2024 16:01:36 Triage Complete 11/25/2024 16:01:36 11/25/2024 16:07:56 11/25/2024 16:07:56 Bed Assign Complete 11/25/2024 16:04:58 11/25/2024 16:04:58 11/25/2024 16:04:58 Dr Exam Complete 11/25/2024 16:04:58 11/25/2024 16:07:02 11/25/2024 16:07:02 RN Exam Complete 11/25/2024 16:04:58 11/25/2024 16:09:18 11/25/2024 16:09:18 Registration Complete 11/25/2024 16:07:02 11/25/2024 16:17:30 11/25/2024 16:17:30 Dr Exam Complete 11/25/2024 16:07:43 11/25/2024 16:07:43 11/25/2024 16:07:43 Pending Labs Complete 11/25/2024 16:09:43 11/25/2024 16:23:37 Lab Complete 11/25/2024 16:09:43 11/25/2024 16:23:37 Urine Collect Complete 11/25/2024 16:09:43 11/25/2024 16:23:37 Reg Complete Request 11/25/2024 16:17:30 Reg Bed Request Complete 11/25/2024 16:17:31 11/25/2024 16:17:31 11/25/2024 16:17:31 Pending Labs Collected 11/25/2024 16:23:19 11/25/2024 16:23:19 Lab Collected 11/25/2024 16:23:19 11/25/2024 16:23:19 Discharge Complete 11/25/2024 16:59:07 11/25/2024 17:02:01 11/25/2024 17:02:01 Transfer Complete 11/25/2024 17:02:01 11/25/2024 17:02:01 11/25/2024 17:02:01 ADDRESS: [facility] [place] [id number] PHYS DOC NOTES: MEDICAL INFORMATION: Prescriptions Given: New Medications [facility], [address] [facility] [place] [id number], [phone] cephalexin (Keflex 500 mg Cap) 1 Capsules By Mouth every 6 hours for 7 Days. Refills: 0. phenazopyridine (Pyridium 100 mg Tab) 1 Tablets By Mouth 3 times a day for 3 Days. Refills: 0. PATIENT EDUCATION INFORMATION: Instructions: Urinary Tract Infection, Adult, Sbai-yd-Djmb Follow up: With: Address: When: MINAL NEWMAN [address], [facility] [address] [place], [place] [id number] [facility] (7) In 3 days 11/28/2024 Comments: Call Dr for diagnosis based follow up DIAGNOSIS: UTI (urinary tract infection) Normal [facility] ED Patient Summaryon 025 ED Patient Summary ED Patient Summary [address] [address] Patient Discharge Instructions Person Information Name: OSMAN COHEN Age: 24 Years Arrival Date: 11/25/2024 16:01:36 Discharge Diagnosis: UTI (urinary tract infection) Primary Care Physician: MINAL NEWMAN DO Provider Information Primary Provider: Froylan Guaman MD Advanced Brand Lead:Tavo Angel PA-C The exam and treatment you received in the Emergency Department were for an urgent problem and are not intended as complete care. It is important that you follow up with a doctor, nurse practitioner, or physician???s administrative assistant for ongoing care. If your symptoms become worse or you do not improve as expected and you are unable to reach your usual health care provider, you should return to the Emergency Department. We are available 24 hours a day. OSMAN COHEN has been given the following list of patient education materials, prescriptions and follow-up instructions: Follow-up Instructions: With: Address: When: MINAL NEWMAN [address], [address] [place] [address] [employer] [facility] In 3 days 11/28/2024 Comments: Call Dr for diagnosis based follow up In the event that this physician does not participate in your insurance network, please consult with your insurance company to find a nearby participating provider. Patient Education Materials: Urinary Tract Infection, Adult, Qtws-cf-Iiuj A MESSAGE TO ALL PATIENTS REGARDING OPIOIDS PRESCRIPTION OPIOIDS: WHAT YOU NEED TO KNOW Prescription opioids can be used to help relieve rvzdsulo-as-nkccsb pain and are often prescribed following a surgery or injury, or for certain health conditions. These medications can be an important part of the treatment but also come with serious risks. It is important to work with your healthcare provider to make sure you are getting the safest, most effective care. WHAT ARE THE RISKS AND SIDE EFFECTS OF OPIOID USE? Prescription opioids carry serious risks of addiction and overdose, especially with prolonged use. An opioid overdose, often marked by slowed breathing, can cause sudden . The use of prescription opioids can have a number of side effects as well, even when taken as directed: ??? Tolerance???meaning you might need to take more of the medication for the same pain relief ??? Physical dependence???meanin g you have symptoms of withdrawal when a medication is stopped ??? Increased sensitivity to pain ??? Constipation ??? Nausea, vomiting, and dry mouth ??? Sleepiness and dizziness ??? Confusion ??? Depression ??? Low levels of testosterone that can result in lower sex drive, energy, and strength ??? Itching and sweating RISKS ARE GREATER WITH: ??? History of drug misuse, substance use disorder, or overdose ??? Mental health conditions (such as depression or anxiety) ??? Sleep apnea ??? Older age (65 years and older) ??? Avoid alcohol while taking prescription opioids. Also, unless specifically advised by your health care provider, medications to avoid include: ??? Benzodiazepines (such as Xanax or Valium) ??? Muscle relaxants (such as Soma or Flexeril) ??? Hypnotics (such as Ambien or Lunesta) ??? Other prescription opioids KNOW YOUR OPTIONS Talk to your health care provider about ways to manage your pain that don???t involve prescription opioids. Some of these options may actually work better and have fewer risks and side effects. Options may include: ??? Pain relievers such as acetaminophen, ibuprofen, and naproxen ??? Some medication that are also used for depression or seizures ??? Physical therapy and exercise ??? Cognitive behavioral therapy, a psychological, goal-directed approach, in which patients learn how to modify physical, behavioral, and emotional triggers of pain and stress. IF YOU ARE PRESCRIBED OPIOIDS FOR PAIN: ??? Never take opioids in greater amounts or more often than prescribed. ??? Follow up with your primary health care provider. o Work together to create a plan on how to manage your pain. o Talk about ways to help manage your pain that don???t involve prescription opioids. o Talk about any and all concerns and side effects. ??? Help prevent misuse and abuse o Never sell or share prescription opioids. o Never use another person???s prescription opioids. ??? Store prescription opioids in a secure place and out of reach of others (this may include visitors, children, friends, and family). ??? Safely dispose of unused prescription opioids: Find your community drug take-back program or your pharmacy mail-back program, or flush them down the toilet, following guidance from the Food and Drug Administration (www.fda.gov/Drugs/ ResourcesForYou). ??? Visit www.cdc.gov/drugove rdose to learn about the risks of opioids abuse and overdose. ??? If (more content not included)... Normal [facility] SEROLOGYOrdered By: Kell Pascual on 11-25-2024 HCG.beta subunit (U) [Moles/Vol] Negative Normal [facility] U BetaHcg Qualon 11-25-2024 U beta hCG Ql Negative Normal [facility] Comment on above: Performed By: #### 2 [id number] #### [facility] [address] [place] [address] UA with Cult Rflxon 11-26-19 25 Color (U) Yellow Normal Yellow [facility] Comment on above: Result Comment: Micr oscopic readings are only performed on those samples that meet specific criteria set forth by [facility]. Performed By: #### 4 [id number] #### [facility] [address] [place] [address] Ketones Ql (U) Negative Normal Negative [facility] Comment on above: Performed By: #### 4 [id number] #### [facility] [address] [place] [address] UA Blood 1+ mg/dL Abnormal Negative [facility] Comment on above: Performed By: #### 4 [id number] #### [facility] [address] [place] [address] UA Bacteria 1+ /HPF Abnormal Trace [facility] Comment on above: Performed By: #### 4 [id number] #### [facility] [address] [place] [address] UA Clarity Turbid Abnormal Clear [facility] Comment on above: Performed By: #### 4 [id number] #### [facility] [address] [place] [address] UA Glucose Trace Abnormal Negative [facility] Comment on above: Performed By: #### 4 [id number] #### [facility] [address] [place] [address] UA Leuk Est 500 Janelle/uL Abnormal Negative [facility] Comment on above: Performed By: #### 4 [id number] #### [facility] [address] [place] [address] UA Mucous Trace Normal Negative [facility] Comment on above: Performed By: #### 4 [id number] #### [facility] [address] [place] [address] UA Nitrite Negative Normal Negative [facility] Comment on above: Performed By: #### 4 [id number] #### [facility] [address] [place] [address] UA pH 5.5 Invalid Interpretation Code 5.0-9.0 [facility] Comment on above: Performed By: #### 4 [id number] #### [facility] [address] [place] [address] UA Protein Trace Abnormal Negative [facility] Comment on above: Performed By: #### 4 [id number] #### [facility] [address] [place] [address] UA RBC 4-20 Abnormal 0-3 [facility] Comment on above: Performed By: #### 4 [id number] #### [facility] [facility] [address] [place] [address] UA Spec Grav 1.021 Invalid Interpretation Code 1.005-1.030 [facility] Comment on above: Performed By: #### 4 [id number] #### [facility] [address] [place] [address] UA Squam Epithelial >10 Invalid Interpretation Code [facility] Comment on above: Performed By: #### 4 [id number] #### [facility] [address] [place] [address] UA Urobilinogen Negative Normal Negative [facility] Comment on above: Performed By: #### 4 [id number] #### [facility] [address] [place] [address] UA WBC >75 Abnormal 0-5 [facility] Comment on above: Performed By: #### 4 [id number] #### [facility] [address] [place] [address] Urobilinogen (U) [Mass/Vol] Negative Normal Negative [facility] Comment on above: Performed By: #### 4 [id number] #### [facility] [address] [place] [address] UA Spec Desc Clean Catch Normal [facility] Comment on above: Performed By: #### 4 [id number] #### [facility] [address] [place] [address] URINALYSISOrdered By: SYSTEM SYSTEM on 11-25-2024 Bacteria Auto Ql (U) 1+ /HPF Invalid Interpretation Code Trace/HPF [facility] UA Auto SS Bilirubin Ql (U) Negative Normal Negativemg/ dL [facility] UA Auto SS Clarity (U) Turbid *ABN* (11/25/24 4:11 PM) Invalid Interpretation Code Clear [facility] UA Auto SS Color (U) Yellow 1 (11/25/24 4:11 PM) Normal Yellow [facility] UA Auto SS Comment on above: Interpretive Data: M icroscopic readings are only performed on those samples that meet specific criteria set forth by [facility] Laboratory. Epithelial cells.squamous Auto (Urine sed) [#/Area] >10 graded/HPF Invalid Interpretation Code [facility] UA Auto SS Glucose Ql (U) Trace mg/dL Invalid Interpretation Code Negativemg/ dL [facility] UA Auto SS Hemoglobin Auto test strip (U) [Mass/Vol] 1+ mg/dL Invalid Interpretation Code Negativemg/ dL [facility] UA Auto SS Ketones Auto test strip Ql (U) Negative Normal Negativemg/ dL [facility] UA Auto SS Leukocyte esterase Auto test strip Ql (U) 500 Janelle/uL Janelle/uL Invalid Interpretation Code NegativeLeu /uL [facility] UA Auto SS Mucus Auto Ql (U) Trace graded/LPF Normal Negati vegra ded/LPF [facility] UA Auto SS Nitrite Auto test strip Ql (U) Negative Normal Negativemg/ dL [facility] UA Auto SS pH (U) 5.5 *NA* (11/25/24 4:11 PM) Invalid Interpretation Code 5.0 - 9.0 [facility] UA Auto SS Protein Ql (U) Trace mg/dL Invalid Interpretation Code Negativemg/ dL [facility] UA Auto SS RBC Ql (U) 4-20 graded/HPF Invalid Interpretation Code 0-3graded/H PF [facility] UA Auto SS Specific gravity (U) [Rel density] 1.021 *NA* (11/25/24 4:11 PM) Invalid Interpretation Code 1.005 - 1.030 [facility] UA Auto SS Urobilinogen (U) [Mass/Vol] Negative Normal Negativemg/ dL [facility] UA Auto SS WBC Auto (Urine sed) [#/Area] >75 graded/HPF Invalid Interpretation Code 0-5graded/H PF [facility] UA Auto SS URINALYSISOrdered By: Nathalie Manning on 11-25-2024 UA Spec Desc Clean Catch (11/25/24 4:11 PM) Normal [facility] UA Auto SS Laboratory - Chemistry and C hemistry - challengeon 09-29-2024 Cortisol [Mass/Vol] 16.3 ug/dL 6.2 - 19 .4 ug/dL [facility] Comment on above: Please Note: The ref erence interval and flagging for this test is for an AM collection. If this is a PM collection please use: Cortisol PM: 2.3-11.9 Laboratory - Cytologyon Director Of [employer] Cyto stain Nom (Cvx/Vag) [ID] Comment [facility] Comment on above: Thao kendrick, Director Of Digital Technology (ASCP) Cytology report Cyto stain Doc (Cvx/Vag) Comment [facility] Comment on above: NEGATIVE FOR INTRAEP ITHELIAL LESION OR MALIGNANCY. Cytology report Cyto stain.thin prep Doc (Cvx/Vag) Comment [facility] Comment on above: This liquid based Th inPrep(R) pap test was screened with the use of an image guided system. Statement of adequacy Cyto stain (Cvx/Vag) [Interp] Comment [facility] Comment on above: Satisfactory for carmel luation. Endocervical and/or squamous metaplastic cells (endocervical component) are present. Laboratory - Microbiology an d Antimicrobial susceptibilityon 09-29-2024 HPV 16+18+31+33+35+39+45+51+ 52+56+58+59+66+68 DNA Probe+sig amp Ql (Cvx) Negative Negative [facility] Comment on above: This nucleic acid am plification test detects fourteen high-risk HPV types (16,18,31,33,35,39,45,51,52,56,58,59,66,68) without differentiation. Microscopic observation Other stain Nom (Unsp spec) . [facility] Clindamycin Disk diffusion (KB) [Susc] Comment [facility] Comment on above: Written Authorizatio n Written Authorization Written Authorization Received. Authorization received from FAXED ORDER 09-28-2024 Logged by Brit Harvey Laboratory - Miscellaneous t estson 09-29-2024 Service comment (Unsp spec) [Interp] Comment [facility] Comment on above: The Pap smear is a s creening test designed to aid in the detection of premalignant and malignant conditions of the uterine cervix. It is not a diagnostic procedure and should not be used as the sole means of detecting cervical cancer. Both false-positive and false-negative reports do occur. No Panel Informationon 09-29 Diagnosis ICD code [Identifier] Comment [facility] Comment on above: Z01.419 Z12.4 Performed at: - [address] [id number] [employer]: Liyah Dsuoza MD, Phone: [phone] Performed at: - [address] [id number] [employer]: Liyah Dsouza MD, Phone: [phone] Specimen Comment: No. of containers..01 ThinPrep Vial [facility] Performed at: - [address] [id number] [employer]: Isidro John PhD, Phone: [phone] [facility] CBC w/ Auto Diffon 4 Basophils/100 WBC (Bld) 0.2 % Normal 0.0-2.0 [facility] Comment on above: Performed By: #### 2 [id number] #### [facility] [address] [place] [address] Basophils/Leukocytes Auto (Bld) [Pure # fraction] 0.0 E9/L Normal 0.0-0.2 [facility] Comment on above: Performed By: #### 2 [id number] #### [facility] [address] [place] [address] Eosinophils (Bld) [#/Vol] 0.1 E9/L Normal 0.0-0.5 [facility] Comment on above: Performed By: #### 2 [id number] #### [facility] [address] [place] [address] Eosinophils/100 WBC (Bld) 1.1 % Normal 0.0-8.0 [facility] Comment on above: Performed By: #### 2 [id number] #### [facility] [address] [place] [address] Erythrocyte distribution width (RBC) [Ratio] 12.6 % Normal 10.9-14.2 [facility] Comment on above: Performed By: #### 2 [id number] #### [facility] [address] [place] [address] Hematocrit (Bld) [Volume fraction] 38.8 % Normal 34.0-46.0 [facility] Comment on above: Performed By: #### 2 [id number] #### [facility] [address] [place] [address] Hemoglobin (Bld) [Mass/Vol] 13.0 g/dL Normal 12.0-16.0 [facility] Comment on above: Performed By: #### 2 [id number] #### [facility] [address] [place] [address] Lymphocytes (Bld) [#/Vol] 3.6 E9/L Normal 1.0-4.0 [facility] Comment on above: Performed By: #### 2 [id number] #### [facility] [address] [place] [address] Lymphocytes/100 WBC (Bld) 31.4 % Normal 14.0-50.0 [facility] Comment on above: Performed By: #### 2 [id number] #### [facility] [address] [place] [address] MCH (RBC) [Entitic mass] 26.0 pg Low 27.0-34.0 [facility] Comment on above: Performed By: #### 2 [id number] #### [facility] [address] [place] [address] MCHC (RBC) [Mass/Vol] 33.4 g/dL Normal 31.4-36.0 [facility] Comment on above: Performed By: #### 2 [id number] #### [facility] [address] [place] [address] MCV (RBC) [Entitic vol] 77.8 fL Low 80.0-100.0 [facility] Comment on above: Performed By: #### 2 [id number] #### [facility] [address] [place] [address] Monocytes (Bld) [#/Vol] 0.7 E9/L Normal 0.2-1.0 [facility] Comment on above: Performed By: #### 2 [id number] #### [facility] [address] [place] [address] Neutrophils (Bld) [#/Vol] 7.1 E9/L Normal 2.0-7.5 [facility] Comment on above: Performed By: #### 2 [id number] #### [facility] [address] [place] [address] Neutrophils/100 WBC (Bld) 61.2 % Normal 36.0-75.0 [facility] Comment on above: Performed By: #### 2 [id number] #### [facility] [address] [place] [address] Platelet mean volume (Bld) [Entitic vol] 6.4 fL Normal 6.4-10.8 [facility] Comment on above: Performed By: #### 2 [id number] #### [facility] [address] [place] [address] Platelets (Bld) [#/Vol] 321.0 E9/L Normal 150.0-500.0 [facility] Comment on above: Performed By: #### 2 [id number] #### [facility] [address] [place] [address] RBC (Bld) [#/Vol] 5.0 E12/L Normal 4.3-5.9 [facility] Comment on above: Performed By: #### 2 [id number] #### [facility] [address] [place] [address] WBC corrected for nucl RBC Auto (Bld) [#/Vol] 11.6 E9/L High 4.0-11.0 [facility] Comment on above: Performed By: #### 2 [id number] #### [facility] [address] [place] [address] CHEMISTRYOrdered By: SYSTEM SYSTEM on 10-29-2023 Troponin HS pg/mL Low 10.10 - 27.10 pg/mL [facility] Comment on above: Interpretive Data: Yoli mendoza 95% CI (Confidence Interval) PPV (Positive Predictive Value) for myocardial infarction in females is 38 pg/mL, in males 51 pg/mL. The results should be used in conjunction with clinical conditions of myocardial infarction. (Access High Sensitivity Troponin I Instructions For Use, [employer], December 2017) Anion gap [Moles/Vol] 13 mmol/L Normal 6 - 16 mEq/L [facility] Calcium [Mass/Vol] 8.6 mg/dL Low 8.9 - 11. 1 mg/dL [facility] Chloride [Moles/Vol] 106 mmol/L Normal 101 - 1 11 mmol/L [facility] CO2 [Moles/Vol] 24 mmol/L Normal 21 - 31 mmol/L [facility] Creatinine [Mass/Vol] 0.7 mg/dL Normal 0.5 - 1.3 mg/dL [facility] eGFR 126 mL/min/1.73 m2 Normal >=59mL/mi n/ 1.73 m2 [facility] Glucose [Mass/Vol] 99 mg/dL Normal 55 - 199 mg/dL [facility] Potassium [Moles/Vol] 3.4 mmol/L Low 3.5 - 5.3 mmol/L [facility] Sodium [Moles/Vol] 140 mmol/L Normal 135 - 145 mmol/L [facility] Troponin HS pg/mL Low 10.10 - 27.10 pg/mL [facility] Comment on above: Interpretive Data: Yoli emndoza 95% CI (Confidence Interval) PPV (Positive Predictive Value) for myocardial infarction in females is 38 pg/mL, in males 51 pg/mL. The results should be used in conjunction with clinical conditions of myocardial infarction. (Access High Sensitivity Troponin I Instructions For Use, [employer], December 2017) Urea nitrogen [Mass/Vol] 12 mg/dL Normal 5 - 21 mg/dL [facility] Urea nitrogen/Creatinine [Mass ratio] 17 mg/mg Normal 10 - 20 [facility] COAGULATIONOrdered By: Ky on Kayla on 10-29-2023 aPTT Coag (PPP) [Time] 33.6 s Normal 25.1 - 36.5 second(s) [facility] Comment on above: Interpretive Data: P arameter 15 days - 4 weeks 1 - 5 months 6 - 11 months 1 - 5 years 6 - 10 years 11 - 17 years PTT Mean: 35.4 (27.6-45.6) Mean: 33.5 (24.8-40.7) Mean: 32.4 (25.1-40.7) Mean: 31.6 (24.0-39.2) Mean: 31.6 (26.9-38.7) Mean: 31.0 (24.6-38.4) Pediatric Reference ranges were obtained from a study by eleni Izquierdo alHaroon prepared from 1437 samples obtained at 7 different centers using the same coagulation reagent and instrumentation as [facility]. Currently there are no coagulation studies available worldwide for children to 14 days, and no normal ranges. Heparin therapeutic range (represented by Anti-Factor Xa activity of 0.2 - 0.4 U/mL) corresponds to PTT of 56.6 - 109.0 sec. INR Coag (PPP) [Relative time] 1.04 {INR} Invalid Interpretation Code [facility] Comment on above: Interpretive Data: I NR results are specifically intended to assess patients stabilized on long-term Anticoagulation therapy suggested INR s Less Intensive Anticoagulation 2.0 3.0 Conventional Range 3.0 4.5 PT Coag (PPP) [Time] 11.6 s Normal 9.4 - 1 2.5 second(s) [facility] Comment on above: Interpretive Data: 1 5 days - 4 weeks 1 - 5 months 6 -11 months 1-5 years 6-10 years 11 -17 years Mean: 11.2 (9.5-12.6) Mean: 11.0 (9.7-12.8) Mean: 11.0 (9.8-13.0) Mean: 11.3 (9.9-13.4) Mean: 11.7 (10.0-14.6) Mean: 11.8 (10.0 - 14.1) Pediatric Reference ranges were obtained from a study by anshul Izquierdo prepared from 1437 samples obtained at 7 different centers using the same coagulation reagent and instrumentation as [facility]. Currently there are no coagulation studies available worldwide for children to 14 days, and no normal ranges. Consent for Treatmenton 09-30 Consent for Treatment [id number] Normal [facility] HEMATOLOGYOrdered By: SYSTEM SYSTEM on 10-29-2023 Basophils/100 WBC (Bld) 0.2 % Normal 0.0 - 2.0 % [facility] Basophils/Leukocytes Auto (Bld) [Pure # fraction] 0.0 E9/L Normal 0.0 - 0.2 E9/L [facility] Eosinophils (Bld) [#/Vol] 0.1 E9/L Normal 0.0 - 0.5 E9/L [facility] Eosinophils/100 WBC (Bld) 1.1 % Normal 0.0 - 8.0 % [facility] Erythrocyte distribution width (RBC) [Ratio] 12.6 % Normal 10.9 - 14.2 % [facility] Hematocrit (Bld) [Volume fraction] 38.8 % Normal 34.0 - 46.0 % [facility] Hemoglobin (Bld) [Mass/Vol] 13.0 g/dL Normal 12.0 - 16.0 gm/dL [facility] Lymphocytes (Bld) [#/Vol] 3.6 E9/L Normal 1.0 - 4.0 E9/L [facility] Lymphocytes/100 WBC (Bld) 31.4 % Normal 14.0 - 50.0 % [facility] MCH (RBC) [Entitic mass] 26.0 pg Low 27. 0 - 34.0 pg [facility] MCHC (RBC) [Mass/Vol] 33.4 g/dL Normal 31.4 - 36.0 gm/dL [facility] MCV (RBC) [Entitic vol] 77.8 fL Low 80.0 - 100.0 fL [facility] Monocytes (Bld) [#/Vol] 0.7 E9/L Normal 0.2 - 1.0 E9/L [facility] Monocytes/100 WBC (Bld) 6.1 % Normal 4.0 - 14.0 % [facility] Neutrophils (Bld) [#/Vol] 7.1 E9/L Normal 2.0 - 7.5 E9/L [facility] Neutrophils/100 WBC (Bld) 61.2 % Normal 36.0 - 75.0 % [facility] Platelet mean volume (Bld) [Entitic vol] 6.4 fL Normal 6.4 - 10.8 fL [facility] Platelets (Bld) [#/Vol] 321.0 E9/L Normal 150. 0 - 500.0 E9/L [facility] RBC (Bld) [#/Vol] 5.0 E12/L Normal 4.3 - 5.9 E12/L [facility] WBC corrected for nucl RBC Auto (Bld) [#/Vol] 11.6 E9/L High 4.0 - 11.0 E9/L [facility] Consent for Treatmenton Consent for Treatment [id number]#[id number] Normal [facility] Discharge Instructionson Discharge Instructions [id number] Normal [facility] ED Clinical Summaryon 2023 ED Clinical Summary [place] [id number] ED Clinical Summary Person Information Name: OSMAN COHEN [facility] Age: 22 Years : 2000 Sex: Female Language: Georgian PCP: MINAL NEWMAN DO Marital Status: Single Visit Id: Visit Reason: Vomiting; Nausea; Headache; HEADACHE Speciality: Acuity: 3 Enc Type: Emergency Med Service: Emergency Arrival: 10/05/2023 20:33:23 Discharge: 10/05/2023 22:21:08 LOS: 000 01:48 Checkin: 10/05/2023 20:33:23 Checkout: 10/05/2023 22:21:08 Dispo Type: Home (Routine DC) EVENTS: Event Name Event Status Request Date/Time Start Date/Time Complete Date/Time Arrive Complete 10/05/2023 20:33:23 10/05/2023 20:33:23 10/05/2023 20:33:23 Document Home Meds Request 10/05/2023 20:33:23 Triage Complete 10/05/2023 20:33:23 10/05/2023 20:43:25 10/05/2023 20:43:25 Registration Complete 10/05/2023 20:36:36 10/05/2023 20:36:36 10/05/2023 20:36:36 Reg Complete Request 10/05/2023 20:36:36 Reg Bed Request Complete 10/05/2023 20:36:36 10/05/2023 20:36:36 10/05/2023 20:36:36 Bed Assign Complete 10/05/2023 20:43:33 10/05/2023 20:43:33 10/05/2023 20:43:33 Dr Exam Complete 10/05/2023 20:43:33 10/05/2023 20:46:57 10/05/2023 20:46:57 RN Exam Complete 10/05/2023 20:43:33 10/05/2023 20:52:57 10/05/2023 20:52:57 Registration Complete 10/05/2023 20:46:57 10/05/2023 20:58:52 10/05/2023 20:58:52 Meds Admin Request 10/05/2023 20:54:15 Discharge Complete 10/05/2023 22:10:31 10/05/2023 22:21:15 10/05/2023 22:21:15 Transfer Complete 10/05/2023 22:21:15 10/05/2023 22:21:15 10/05/2023 22:21:15 ADDRESS: [facility] [address] [id number] PHYS DOC NOTES: MEDICAL INFORMATION: Prescriptions Given: PATIENT EDUCATION INFORMATION: Instructions: Migraine Headache, [id number] Follow up: With: Address: When: MINAL NEWMAN [address], [place] [place] [address] Business (6) In 3 days 10/08/2023 Comments: Continue taking your medications as prescribed. Please follow-up with your primary care doctor next 2 to 3 days for further evaluation and management. Please return to the ED for any new or worsening symptoms. DIAGNOSIS: Headache, migraine Normal [facility] ED Note-Physicianon 10-05-19 24 ED Note-Physician Basic Information Time Seen: Deana Mohan DO 10/05/2023 20:46 Chief Complaint Pt arrives to ED for c/o headache, N/V since yesterday. Sensitivity to light and sound. Hx of migrane. History of Present Illness Patient is a 22-year-old female with past medical history of migraines presenting to the ED for evaluation of headache, nausea vomiting sensitive to light and sound. Patient's states her symptoms started yesterday has been taking medications at home without relief. Patient states this feels like her typical migraines however is lasting longer than normal. Patient denies any vision changes, any other complaints. Review of Systems A 10 point review of systems is negative except as noted above. Medical and Surgical History: Reviewed and noted Social history: Lives at home Tobacco: Denies Physical Exam Vitals & Measurements T: 36.5 ?C(Oral) HR: 73(Monitored) RR: 16 BP: 81/59 SpO2: 98% HT: 160.03 cm WT: 107 kg BMI: 41.78 General: Well developed, non toxic appearing, uncomfortable appearing HEENT: Head atraumatic, Mucosa moist, hearing grossly normal Neck: No JVD, tracheal deviation Cardiac: Regular rate, rhythm, no murmurs, or gallops, 2+ radial pulses Respiratory: Lungs clear to auscultation B/L, normal respiratory effort Abdomen: Soft non tender, no rebound or guarding, no peritoneal signs Extremities: No edema noted in the LE B/L, no tenderness to palpation Neurologic: Alert and oriented, speech clear, cranial nerves III through XII intact, no focal neurologic deficits Skin: No rashes or lesions Psych: Appropriate mood and behavior Medical Decision Making MEDICAL DECISION MAKING Number and Complexity of Problems Differential Diagnosis: [] [facility] Data External documents reviewed: [] My EKG interpretation: [] My CT interpretation: [] My X-ray interpretation: [] My Ultrasound interpretation: [] Decision rules/scores evaluated: [] Discussed with: [] Treatment and Disposition ED Course: Patient is a 22-year-old female presenting to the ED for evaluation of headache, nausea and vomiting. Patient is nontoxic and on arrival, no acute distress. No red flag symptoms on examination. No focal deficits noted on examination. Patient is given Reglan, Benadryl, Toradol, IV fluids in addition to Decadron. On reevaluation patient reports significant treatment of her symptoms. She is comfortable with discharge home. Patient is to follow-up with her primary care doctor next 2 to 3 days. She is to return to the ED for any new or worsening symptoms. Shared decision making: [] Code status: [] Assessment/Plan Headache, migraine (G43.909: Migraine, unspecified, not intractable, without status migrainosus) Orders: dexamethasone, 10 mg = 2.5 mL, Injection, IV Push, Once, Stop date 10/05/23 20:53:00 EDT, STAT, Start date 10/05/23 20:53:00 EDT, 10/05/23 20:53:00 EDT diphenhydrAMINE, 25 mg = 0.5 mL, Injection, IV Push, Once, Stop date 10/05/23 20:53:00 EDT, STAT, Start date 10/05/23 20:53:00 EDT, 10/05/23 20:53:00 EDT ketorolac, 30 mg = 1 mL, Injection, IV Push, Once, Stop date 10/05/23 20:53:00 EDT, STAT, Start date 10/05/23 20:53:00 EDT, 10/05/23 20:53:00 EDT metoclopramide, 10 mg = 2 mL, Injection, IV Push, Once, Stop date 10/05/23 20:53:00 EDT, STAT, Start date 10/05/23 20:53:00 EDT, 10/05/23 20:53:00 EDT Sodium Chloride 0.9% intravenous solution 1,000 mL, 1,000 mL, IV, 983.61 mL/hr, for 30 day(s), Stop date 11/04/23 20:52:00 EDT, STAT, Start date 10/05/23 20:53:00 EDT, 61 minute(s), Total volume (mL): 1,000, 107 kg, 2.18, m2 Medications Administered Given Sodium Chloride 0.9% IV Genoveva 1000 mL 1,000 mL, 1000 mL, IV dexamethasone 4 mg/mL Inj 1 mL, 10 mg, IV Push diphenhydrAMINE 50 mg/mL Inj, 25 mg, IV Push ketorolac 30 mg/mL Inj 1 mL, 30 mg, IV Push metoclopramide 5 mg/mL Inj, 10 mg, IV Push Disposition Plan Discharge Prescription List Prescriptions No active prescription medications Follow-up With When Contact Information MINAL DELGADOGABRIELANIK In 3 days 10/08/[address], [address] [place] [address]- Business (1) Additional Instructions: Continue taking your medications as prescribed. Please follow-up with your primary care doctor next 2 to 3 days for further evaluation and management. Please return to the ED for any new or worsening symptoms. Patient Education Migraine Headache, Upnb-vj-[id number] Problem List/Past Medical History Ongoing BMI 35.0-35.9,adult Migraine headache Smoker Historical Migraine Medications Inpatient Sodium Chloride 0.9% IV Genoveva 1000 mL 1,000 mL, 1000 mL, IV Home No active home medications Allergies Latex (Swelling) Social History Alcohol - Denies Alcohol Use, 10/22/2022 Substance Abuse - Denies Substance Abuse, 10/22/2022 Tobacco - High Risk, 08/10/2023 4 or less cigarettes(less than 1/4 pack)/day in last 30 days Tobacco Use:. Current vaping or e-cigarette use Smokeless Tobacco Use:. (more content not included)... Normal [facility] Comment on above: Result Comment: Elec tronically Signed By: Deana Mohan DO.laura\Date and Time Signed: 10/05/23 22:45 EDT ED Patient Education Noteon 10-05-2023 ED Patient Education Note Neurology Migraine Headache A migraine headache is a very strong throbbing pain on one side or both sides of your head. This type of headache can also cause other symptoms. It can last from 4 hours to 3 days. Talk with your doctor about what things may bring on (trigger) this condition. What are the causes? The exact cause of this condition is not known. This condition may be triggered or caused by: ? Drinking alcohol. ? Smoking. ? Taking medicines, such as: ? Medicine used to treat chest pain (nitroglycerin). ? control pills. ? Estrogen. ? Some blood pressure medicines. ? Eating or drinking certain products. ? Doing physical activity. Other things that may trigger a migraine headache include: ? Having a menstrual period. ? . ? Hunger. ? Stress. ? Not getting enough sleep or getting too much sleep. ? Weather changes. ? Tiredness (fatigue). What increases the risk? ? Being 25?55 years old. ? Being female. ? Having a family history of migraine headaches. ? Being . ? Having depression or anxiety. ? Being very overweight. What are the signs or symptoms? ? A throbbing pain. This pain may: ? Happen in any area of the head, such as on one side or both sides. ? Make it hard to do daily activities. ? Get worse with physical activity. ? Get worse around bright lights or loud noises. ? Other symptoms may include: ? Feeling sick to your stomach (nauseous). ? Vomiting. ? Dizziness. ? Being sensitive to bright lights, loud noises, or smells. ? Before you get a migraine headache, you may get warning signs (an aura). An aura may include: ? Seeing flashing lights or having blind spots. ? Seeing bright spots, halos, or zigzag lines. ? Having tunnel vision or blurred vision. ? Having numbness or a tingling feeling. ? Having trouble talking. ? Having weak muscles. ? Some people have symptoms after a migraine headache (postdromal phase), such as: ? Tiredness. ? Trouble thinking (concentrating). How is this treated? ? Taking medicines that: ? Relieve pain. ? Relieve the feeling of being sick to your stomach. ? Prevent migraine headaches. ? Treatment may also include: ? Having acupuncture. ? Avoiding foods that bring on migraine headaches. ? Learning ways to control your body functions (biofeedback). ? Therapy to help you know and deal with negative thoughts (cognitive behavioral therapy). Follow these instructions at home: Medicines ? Take rwzb-ixx-dofxszo and prescription medicines only as told by your doctor. ? Ask your doctor if the medicine prescribed to you: ? Requires you to avoid driving or using heavy machinery. ? Can cause trouble pooping (constipation). You may need to take these steps to prevent or treat trouble pooping: ? Drink enough fluid to keep your pee (urine) pale yellow. ? Take ywti-abm-qzewfbv or prescription medicines. ? Eat foods that are high in fiber. These include beans, whole grains, and fresh fruits and vegetables. ? Limit foods that are high in fat and sugar. These include fried or sweet foods. Lifestyle ? Do not drink alcohol. ? Do not use any products that contain nicotine or tobacco, such as cigarettes, e-cigarettes, and chewing tobacco. If you need help quitting, ask your doctor. ? Get at least 8 hours of sleep every night. ? Limit and deal with stress. General instructions ? Keep a journal to find out what may bring on your migraine headaches. For example, write down: ? What you eat and drink. ? How much sleep you get. ? Any change in what you eat or drink. ? Any change in your medicines. ? If you have a migraine headache: ? Avoid things that make your symptoms worse, such as bright lights. ? It may help to lie down in a dark, quiet room. ? Do not drive or use heavy machinery. ? Ask your doctor what activities are safe for you. ? Keep all follow-up visits as told by your doctor. This is important. Contact a doctor if: ? You get a migraine headache that is different or worse than others you have had. ? You have more than 15 headache days in one month. Get help right away if: ? Your migraine headache gets very bad. ? Your migraine headache lasts longer than 72 hours. ? You have a fever. ? You have a stiff neck. ? You have trouble seeing. ? Your muscles feel weak or like you cannot control them. ? You start to lose your balance a lot. ? You start to have trouble walking. ? You pass out (faint). ? You have a seizure. Summary ? A migraine headache is a very strong throbbing pain on one side or both sides of your head. These headaches can also cause other symptoms. ? This condition may be treated with medicines and changes to your lifestyle. ? Keep a journal to find out what may bring on your migraine headaches. ? Contact a doctor if you get a migraine headache that is different or worse than other (more content not included)... [facility] ED Patient Summaryon 024 ED Patient Summary [place] [id number] Patient Discharge Instructions Person Information Name: OSMAN COHEN Age: 22 Years Arrival Date: 10/05/2023 20:33:23 Discharge Diagnosis: Headache, migraine Primary Care Physician: MINAL NEWMAN DO Provider Information Primary Provider: Deana Mohan DO Advanced Brand Lead:None The exam and treatment you received in the Emergency Department were for an urgent problem and are not intended as complete care. It is important that you follow up with a doctor, nurse practitioner, or physician?s administrative assistant for ongoing care. If your symptoms become worse or you do not improve as expected and you are unable to reach your usual health care provider, you should return to the Emergency Department. We are available 24 hours a day. OSMAN COHEN has been given the following list of patient education materials, prescriptions and follow-up instructions: Follow-up Instructions: With: Address: When: MINAL TRENT [address], [address] [address] [facility] () In 3 days 10/08/2023 Comments: Continue taking your medications as prescribed. Please follow-up with your primary care doctor next 2 to 3 days for further evaluation and management. Please return to the ED for any new or worsening symptoms. In the event that this physician does not participate in your insurance network, please consult with your insurance company to find a nearby participating provider. Patient Education Materials: Migraine Headache, Ybvo-gw-Fdhe A MESSAGE TO ALL PATIENTS REGARDING OPIOIDS PRESCRIPTION OPIOIDS: WHAT YOU NEED TO KNOW Prescription opioids can be used to help relieve rpzhxotm-hu-tfmuyi pain and are often prescribed following a surgery or injury, or for certain health conditions. These medications can be an important part of the treatment but also come with serious risks. It is important to work with your healthcare provider to make sure you are getting the safest, most effective care. WHAT ARE THE RISKS AND SIDE EFFECTS OF OPIOID USE? Prescription opioids carry serious risks of addiction and overdose, especially with prolonged use. An opioid overdose, often marked by slowed breathing, can cause sudden . The use of prescription opioids can have a number of side effects as well, even when taken as directed: ? Tolerance?meaning you might need to take more of the medication for the same pain relief ? Physical dependence?meaning you have symptoms of withdrawal when a medication is stopped ? Increased sensitivity to pain ? Constipation ? Nausea, vomiting, and dry mouth ? Sleepiness and dizziness ? Confusion ? Depression ? Low levels of testosterone that can result in lower sex drive, energy, and strength ? Itching and sweating RISKS ARE GREATER WITH: ? History of drug misuse, substance use disorder, or overdose ? Mental health conditions (such as depression or anxiety) ? Sleep apnea ? Older age (65 years and older) ? Avoid alcohol while taking prescription opioids. Also, unless specifically advised by your health care provider, medications to avoid include: ? Benzodiazepines (such as Xanax or Valium) ? Muscle relaxants (such as Soma or Flexeril) ? Hypnotics (such as Ambien or Lunesta) ? Other prescription opioids KNOW YOUR OPTIONS Talk to your health care provider about ways to manage your pain that don?t involve prescription opioids. Some of these options may actually work better and have fewer risks and side effects. Options may include: ? Pain relievers such as acetaminophen, ibuprofen, and naproxen ? Some medication that are also used for depression or seizures ? Physical therapy and exercise ? Cognitive behavioral therapy, a psychological, goal-directed approach, in which patients learn how to modify physical, behavioral, and emotional triggers of pain and stress. IF YOU ARE PRESCRIBED OPIOIDS FOR PAIN: ? Never take opioids in greater amounts or more often than prescribed. ? Follow up with your primary health care provider. o Work together to create a plan on how to manage your pain. o Talk about ways to help manage your pain that don?t involve prescription opioids. o Talk about any and all concerns and side effects. ? Help prevent misuse and abuse o Never sell or share prescription opioids. o Never use another person?s prescription opioids. ? Store prescription opioids in a secure place and out of reach of others (this may include visitors, children, friends, and family). ? Safely dispose of unused prescription opioids: Find your community drug take-back program or your pharmacy mail-back program, or flush them down the toilet, following guidance from the Food and Drug Administration (www.fda.gov/Drugs/ ResourcesForYou). ? Visit www.cdc.gov/drugove rdose to learn about the risks (more content not included)... [facility] Prescriptions/Work Noteson 0 10-05-2023 Prescriptions/Work Notes [id number] 30#1.00TIFF [facility] Discharge Instructionson Discharge Instructions [id number] 471#1.00TIFF [facility] ED Clinical Summaryon 2023 ED Clinical Summary [place] [id number] ED Clinical Summary Person Information Name: OSMAN COHEN [facility]lye[facility] Age: 22 Years : 2000 Sex: Female Language: Georgian PCP: MINAL NEWMAN DO Marital Status: Single Visit Id: Visit Reason: Shortness of breath; Sinus Pain/Congestion; Cough; Wheezing; TROUBLE BREATHING AND A COUGH Speciality: Acuity: 3 Enc Type: Emergency Med Service: Emergency Arrival: 08/10/2023 22:46:40 Discharge: 08/11/2023 00:20:15 LOS: 000 01:34 Checkin: 08/10/2023 22:46:40 Checkout: 08/11/2023 00:20:15 Dispo Type: Home (Routine DC) EVENTS: Event Name Event Status Request Date/Time Start Date/Time Complete Date/Time Arrive Complete 08/10/2023 22:46:40 08/10/2023 22:46:40 08/10/2023 22:46:40 Document Home Meds Request 08/10/2023 22:46:40 Triage Complete 08/10/2023 22:46:40 08/10/2023 23:00:27 08/10/2023 23:00:27 Registration Complete 08/10/2023 22:49:40 08/10/2023 22:49:40 08/10/2023 22:49:40 Reg Complete Request 08/10/2023 22:49:40 Reg Bed Request Complete 08/10/2023 22:49:40 08/10/2023 22:49:40 08/10/2023 22:49:40 EKG Complete 08/10/2023 22:51:30 08/10/2023 22:55:50 Bed Assign Complete 08/10/2023 22:51:47 08/10/2023 22:51:47 08/10/2023 22:51:47 Dr Exam Complete 08/10/2023 22:51:47 08/10/2023 22:52:30 08/10/2023 22:52:30 RN Exam Complete 08/10/2023 22:51:47 08/10/2023 23:06:56 08/10/2023 23:06:56 Registration Request 08/10/2023 22:52:30 Pending Labs Complete 08/10/2023 22:53:16 08/10/2023 23:27:07 Lab Complete 08/10/2023 22:53:16 08/10/2023 23:27:07 Swab Complete 08/10/2023 22:53:16 08/10/2023 23:27:07 X-Ray Complete 08/10/2023 22:53:16 08/10/2023 23:03:13 08/10/2023 23:04:01 Wet Read Request 08/10/2023 23:04:01 Meds Admin Request 08/10/2023 23:35:38 RT Tx/ABG Request 08/10/2023 23:35:38 RT Tx/ABG Request 08/10/2023 23:35:38 Discharge Complete 08/10/2023 23:37:04 08/11/2023 00:20:20 08/11/2023 00:20:20 Transfer Complete 08/11/2023 00:20:20 08/11/2023 00:20:20 08/11/2023 00:20:20 ADDRESS: [facility] [place] [facility] [id number] PHYS DOC NOTES: MEDICAL INFORMATION: Prescriptions Given: New Medications [facility], [address] [place], [place] [id number], [phone] predniSONE (predniSONE 20 mg Tab) 2 Tablets By Mouth every day for 4 Days. Refills: 0. PATIENT EDUCATION INFORMATION: Instructions: Upper Respiratory Infection, Adult Follow up: With: Address: When: MINAL NEWMAN [address], [facility] [address] [place] [address] Business (1) In 3 days DIAGNOSIS: Acute URI [facility] ED Note-Physicianon 08-11-19 ED Note-Physician Basic Information Time Seen: Troy Treadwell DO 08/10/2023 22:52 Chief Complaint Pt states wheezing, cough, congestion, SOB fo r the last week or so. Has only been taking benadryl at home. Denies fevers and CP. History of Present Illness HPI: Patient is a 22-year-old female with past medical history of migraines who presents ED for cough wheezing and difficulty breathing for the past week and a half. Patient states that she is taking Benadryl at home with minimal improvement. She denies fever or chills. She denies nausea vomiting or diarrhea. She denies any chest pain or palpitations. She states that her boyfriend noticed that she is wheezing especially at night and she has a strong family history of asthma. ROS: Pertinent review of systems conducted and is negative except as noted above. Physical exam: General: nontoxic appearing and in no distress HEENT: Mucous membranes moist Neuro: awake and alert Neck: supple, trachea midline Card: Heart regular rate and rhythm no murmur Resp: Lungs clear to auscultation no wheeze or rhonchi Abd: Soft and nondistended. No tenderness to palpation with no rebound or guarding. Ext: No gross deformity or edema Physical Exam Vitals & Measurements T: 37.1 ?C(Oral) HR: 92(Monitored) RR: 16 BP: 104/59 SpO2: 97% HT: 165 cm WT: 103.6 kg BMI: 38.05 Medical Decision Making MEDICAL DECISION MAKING Number and Complexity of Problems Differential Diagnosis: [] [facility] Data External documents reviewed: N/A My EKG interpretation: Noted in chart if applicable My CT interpretation: N/A My X-ray interpretation: Noted in chart if applicable My Ultrasound interpretation: N/A Decision rules/scores evaluated: N/A Discussed with: N/A Treatment and Disposition ED Course: She is nontoxic-appearing no distress. Her lungs are clear to auscultation on my exam. She is saturating at 97% with no increased work of breathing. Viral swabs are negative. Chest x-ray shows no pneumonia. We discussed these results at bedside. We discussed the plan of discharge with a prescription for oral prednisone and we will give her an albuterol inhaler to use as needed as well. Will have her follow-up closely on the patient basis with her primary care physician. Shared decision making: As above Code status: N/A Assessment/Plan Acute URI (J06.9: Acute upper respiratory infection, unspecified) Orders: albuterol, 180 mcg, 2 puff(s), Aerosol, Inhalation, q6hr PRN Shortness of breath or wheezing, STAT, Start date 08/10/23 23:35:00 EDT, teach and treat only predniSONE, 40 mg = 2 tab(s), Oral, Daily, X 4 day(s), # 8 tab(s), Refills(s) 0, Pharmacy: [facility] 1985, 165, cm, 08/10/23 23:00:00 EDT, Height/Length Dosing, 103.6, kg, 08/10/23 23:00:00 EDT, Weight Dosing predniSONE, 40 mg = 2 tab(s), Tab, Oral, Once, Stop date 08/10/23 23:35:00 EDT, STAT, Start date 08/10/23 23:35:00 EDT, 08/10/23 23:35:00 EDT ECG 12 Lead Adult Influenza A&B Ag Rapid COVID Antigen ([facility] [place] XR Chest Single View Disposition Plan Discharge Prescription List Prescriptions predniSONE 20 mg Tab, 40 mg= 2 tab(s), Oral, Daily Follow-up With When Contact Information MINAL NEWMAN In 3 days [address], [place] [address] [place] [address]- Business (1) Additional Instructions: Patient Education Upper Respiratory Infection, Adult Problem List/Past Medical History Ongoing BMI 35.0-35.9,adult Migraine headache Smoker Historical Migraine Medications Inpatient albuterol HFA 90 mcg/inh MDI, 180 mcg= 2 puff(s), Inhalation, q6hr, PRN predniSONE 20 mg Tab, 40 mg= 2 tab(s), Oral, Once Home predniSONE 20 mg Tab, 40 mg= 2 tab(s), Oral, Daily Allergies Latex (Swelling) Social History Alcohol - Denies Alcohol Use, 10/22/2022 Substance Abuse - Denies Substance Abuse, 10/22/2022 Tobacco - High Risk, 08/10/2023 4 or less cigarettes(less than 1/4 pack)/day in last 30 days Tobacco Use:. Current vaping or e-cigarette use Smokeless Tobacco Use:. Cigarettes, Vaping, 08/10/2023 Never (less than 100 in lifetime) Tobacco Use:. Never Smokeless Tobacco Use:., 06/19/2023 Lab Results Influenzae A Ag: NEGATIVE1 (08/10/23 23:02:00) Influenzae B Ag: NEGATIVE1 (08/10/23 23:02:00) Rapid COVID Ag: Not Detected (08/10/23 23:02:00) Rapid COV Int NEG Ctl: Pass (08/10/23 23:02:00) Rapid COV Int POS Ctl: Pass (08/10/23 23:02:00) Diagnostic Results XR Chest Single View * Preliminary * 08/10/23 23:30:58 NEGATIVE: No focal acute process Read By: Troy Treadwell DO EKG Results EC08/11/23: SINUS RHYTHM NORMAL ECG Signed By: Troy Treadwell DO 08/10/2023 22:59:30 I did review the abnormal chest x-ray with Dr. Shipman. Patient had no abdominal complaints. Has normal documented abdominal exam. Likely some overlying bowel gas. [facility] Comment on above: Result Comment: Elec tronically Signed By: Satish Thao DO\.br\Date and Time Signed: 08/11/23 08:47 EDT ED Patient Education Noteon 08-11-2023 ED Patient Education Note Infectious Disease Upper Respiratory Infection, Adult An upper respiratory infection (URI) is a common viral infection of the nose, throat, and upper air passages that lead to the lungs. The most common type of URI is the common cold. URIs usually get better on their own, without medical treatment. What are the causes? A URI is caused by a virus. You may catch a virus by: ? Breathing in droplets from an infected person's cough or sneeze. ? Touching something that has been exposed to the virus (is contaminated) and then touching your mouth, nose, or eyes. What increases the risk? You are more likely to get a URI if: ? You are very young or very old. ? You have close contact with others, such as at work, school, or a health care facility. ? You smoke. ? You have long-term (chronic) heart or lung disease. ? You have a weakened disease-fighting system (immune system). ? You have nasal allergies or asthma. ? You are experiencing a lot of stress. ? You have poor nutrition. What are the signs or symptoms? A URI usually involves some of the following symptoms: ? Runny or stuffy (congested) nose. ? Cough. ? Sneezing. ? Sore throat. ? Headache. ? Fatigue. ? Fever. ? Loss of appetite. ? Pain in your forehead, behind your eyes, and over your cheekbones (sinus pain). ? Muscle aches. ? Redness or irritation of the eyes. ? Pressure in the ears or face. How is this diagnosed? This condition may be diagnosed based on your medical history and symptoms, and a physical exam. Your health care provider may use a swab to take a mucus sample from your nose (nasal swab). This sample can be tested to determine what virus is causing the illness. How is this treated? URIs usually get better on their own within 7?10 days. Medicines cannot cure URIs, but your health care provider may recommend certain medicines to help relieve symptoms, such as: ? Vrhh-jim-dnxvkgd cold medicines. ? Cough suppressants. Coughing is a type of defense against infection that helps to clear the respiratory system, so take these medicines only as recommended by your health care provider. ? Fever-reducing medicines. Follow these instructions at home: Activity ? Rest as needed. ? If you have a fever, stay home from work or school until your fever is gone or until your health care provider says your URI cannot spread to other people (is no longer contagious). Your health care provider may have you wear a face mask to prevent your infection from spreading. Relieving symptoms ? Gargle with a mixture of salt and water 3?4 times a day or as needed. To make salt water, completely dissolve ??1 tsp (3?6 g) of salt in 1 cup (237 mL) of warm water. ? Use a cool-mist humidifier to add moisture to the air. This can help you breathe more easily. Eating and drinking ? Drink enough fluid to keep your urine pale yellow. ? Eat soups and other clear broths. General instructions ? Take njvw-nyl-cltrztc and prescription medicines only as told by your health care provider. These include cold medicines, fever reducers, and cough suppressants. ? Do not use any products that contain nicotine or tobacco. These products include cigarettes, chewing tobacco, and vaping devices, such as e-cigarettes. If you need help quitting, ask your health care provider. ? Stay away from secondhand smoke. ? Stay up to date on all immunizations, including the yearly (annual) flu vaccine. ? Keep all follow-up visits. This is important. How to prevent the spread of infection to others URIs can be contagious. To prevent the infection from spreading: ? Wash your hands with soap and water for at least 20 seconds. If soap and water are not available, use hand jewelry setter. ? Avoid touching your mouth, face, eyes, or nose. ? Cough or sneeze into a tissue or your sleeve or elbow instead of into your hand or into the air. Contact a health care provider if: ? You are getting worse instead of better. ? You have a fever or chills. ? Your mucus is brown or red. ? You have yellow or brown discharge coming from your nose. ? You have pain in your face, especially when you bend forward. ? You have swollen neck glands. ? You have pain while swallowing. ? You have white areas in the back of your throat. Get help right away if: ? You have shortness of breath that gets worse. ? You have severe or persistent: ? Headache. ? Ear pain. ? Sinus pain. ? Chest pain. ? You have chronic lung disease along with any of the following: ? Making high-pitched whistling sounds when you breathe, most often when you breathe out (wheezing). ? Prolonged cough (more than 14 days). ? Coughing up blood. ? A change in your usual mucus. ? You have a stiff neck. ? You have changes in your: ? Vision. ? Hearing. ? Thinking. ? Mood. These symptoms may be an emergency. Get help (more content not included)... [facility] ED Patient Summaryon 024 ED Patient Summary [address], [place] [address] Patient Discharge Instructions Person Information Name: OSMAN COHEN Age: 22 Years Arrival Date: 08/10/2023 22:46:40 Discharge Diagnosis: Acute URI Primary Care Physician: MINAL NEWMAN DO Provider Information Primary Provider: Troy Treadwell DO Advanced Brand Lead:None The exam and treatment you received in the Emergency Department were for an urgent problem and are not intended as complete care. It is important that you follow up with a doctor, nurse practitioner, or physician?s administrative assistant for ongoing care. If your symptoms become worse or you do not improve as expected and you are unable to reach your usual health care provider, you should return to the Emergency Department. We are available 24 hours a day. OSMAN COHEN has been given the following list of patient education materials, prescriptions and follow-up instructions: Follow-up Instructions: With: Address: When: MINAL NEWMAN [address], [facility] [address] [place] [address] [facility] (1) In 3 days In the event that this physician does not participate in your insurance network, please consult with your insurance company to find a nearby participating provider. Patient Education Materials: Upper Respiratory Infection, Adult A MESSAGE TO ALL PATIENTS REGARDING OPIOIDS PRESCRIPTION OPIOIDS: WHAT YOU NEED TO KNOW Prescription opioids can be used to help relieve zjzpmmgi-kz-ahzkyp pain and are often prescribed following a surgery or injury, or for certain health conditions. These medications can be an important part of the treatment but also come with serious risks. It is important to work with your healthcare provider to make sure you are getting the safest, most effective care. WHAT ARE THE RISKS AND SIDE EFFECTS OF OPIOID USE? Prescription opioids carry serious risks of addiction and overdose, especially with prolonged use. An opioid overdose, often marked by slowed breathing, can cause sudden . The use of prescription opioids can have a number of side effects as well, even when taken as directed: ? Tolerance?meaning you might need to take more of the medication for the same pain relief ? Physical dependence?meaning you have symptoms of withdrawal when a medication is stopped ? Increased sensitivity to pain ? Constipation ? Nausea, vomiting, and dry mouth ? Sleepiness and dizziness ? Confusion ? Depression ? Low levels of testosterone that can result in lower sex drive, energy, and strength ? Itching and sweating RISKS ARE GREATER WITH: ? History of drug misuse, substance use disorder, or overdose ? Mental health conditions (such as depression or anxiety) ? Sleep apnea ? Older age (65 years and older) ? Avoid alcohol while taking prescription opioids. Also, unless specifically advised by your health care provider, medications to avoid include: ? Benzodiazepines (such as Xanax or Valium) ? Muscle relaxants (such as Soma or Flexeril) ? Hypnotics (such as Ambien or Lunesta) ? Other prescription opioids KNOW YOUR OPTIONS Talk to your health care provider about ways to manage your pain that don?t involve prescription opioids. Some of these options may actually work better and have fewer risks and side effects. Options may include: ? Pain relievers such as acetaminophen, ibuprofen, and naproxen ? Some medication that are also used for depression or seizures ? Physical therapy and exercise ? Cognitive behavioral therapy, a psychological, goal-directed approach, in which patients learn how to modify physical, behavioral, and emotional triggers of pain and stress. IF YOU ARE PRESCRIBED OPIOIDS FOR PAIN: ? Never take opioids in greater amounts or more often than prescribed. ? Follow up with your primary health care provider. o Work together to create a plan on how to manage your pain. o Talk about ways to help manage your pain that don?t involve prescription opioids. o Talk about any and all concerns and side effects. ? Help prevent misuse and abuse o Never sell or share prescription opioids. o Never use another person?s prescription opioids. ? Store prescription opioids in a secure place and out of reach of others (this may include visitors, children, friends, and family). ? Safely dispose of unused prescription opioids: Find your community drug take-back program or your pharmacy mail-back program, or flush them down the toilet, following guidance from the Food and Drug Administration (www.fda.gov/Drugs/ ResourcesForYou). ? Visit www.cdc.gov/drugove rdose to learn about the risks of opioids abuse and overdose. ? If you believe you may be struggling with addiction, tell your health care transitions manager and ask for guidance or call [facility] National Helpline at 8-574-809-HELP. v Source: US Department of Health (more content not included)... Normal [facility] Prescriptions/Work Noteson 0 08-11-2023 Prescriptions/Work Notes [id number] 159#1.00TIFF Normal [facility] XR Chest Single Viewon 08-10 XR Chest Single View Exam Date/Time: 08/10/2023 23:04 EDT Reason for Exam: Difficulty breathing Report IMPRESSION: NO EVIDENCE OF ACTIVE CHEST DISEASE. CURVILINEAR GAS COLLECTION BENEATH THE LEFT DIAPHRAGM, PERHAPS FORTUITOUS AND OF NO SIGNIFICANCE, BUT FREE AIR BENEATH THE DIAPHRAGM IS NOT EXCLUDED. CLINICAL HISTORY: Difficulty breathing. Wheezing. Cough. COMMENT: AP portable. The heart is normal in size. The mediastinum is unremarkable. The lungs appear clear. No infiltration nor pleural effusion is evident. There is a curvilinear gas beneath the left diaphragm, which could be fortuitous appearance of gas in the stomach and/or splenic flexure of the colon, but on the basis of this AP portable exam, free air beneath the diaphragm is not excluded. The patient was discussed with Dr. Thao of the Emergency Department at 8:00 AM on 08/11/2023. Ordering Provider: Troy Treadwell FINAL REPORT Dictated: 08/11/2023 8:05 am Tho Shipman M.D. Signed (Electronic Signature): 08/11/2023 8:05 am Signed by: Tho Shipman M.D. Transcribed by: LO Technologist: SONIA Technical Comments Radiation Dose: Ka,r in mGy = na DAP = na Normal [facility] Consent for Treatmenton 07-29 Consent for Treatment [id number] E3#1.00TIFF Normal [facility] Influenza A&B Agon 4 Influenzae A Ag Negative Normal Negative [facility] Comment on above: Performed By: #### 2 [id number] ####[facility] [address] [place] [address] Influenzae B Ag Negative Normal Negative [facility] Comment on above: Result Comment: Test sensitivity and specificity vary for age group, specimen type, antigen types, and prevalence of disease. Test results must be evaluated in conjunction with other clinical data available to the physician. Individuals who received nasally administered Influenza A vaccine may have positive test results up to 3 days after vaccination. Performed By: #### 2 [id number], [id number] ####[facility] [id number] [place] [address] MICRO OTHER TESTSOrdered By: Maria Del Rosario Garza on 08-10-2023 Influenzae A Ag Negative (08/10/23 11:02 PM) Normal Negative [facility] S[facility] Influenzae B Ag Negative 1 (08/10/23 11:02 PM) Normal Negative [facility] Comment on above: Interpretive Data: T est sensitivity and specificity vary for age group, specimen type, antigen types, and prevalence of disease. Test results must be evaluated in conjunction with other clinical data available to the physician. Individuals who received nasally administered Influenza A vaccine may have positive test results up to 3 days after vaccination. Rapid COV Int NEG Ctl Pass (08/10/23 11:02 PM) Normal [facility] Rapid COV Int POS Ctl Pass (08/10/23 11:02 PM) Normal [facility] SARS-CoV+SARS-CoV-2 (COVID-19) Ag IA.rapid Ql (Resp) Not Detected 2 (08/10/23 11:02 PM) Normal Not Detected [facility] Comment on above: Interpretive Data: T he [employer] Veritor System for Rapid Detection of SARS-CoV-2 is a chromatographic digital immunoassay intended for the direct and qualitative detection of SARS-CoV-2 nucleocapsid antigens in nasal swabs from individuals who are suspected of COVID-19 by their healthcare provider within the first five days of the onset of symptoms. Negative results should be treated as presumptive, do not rule out SARS-CoV-2 infection and should not be used as the sole basis for treatment or patient management decisions, including infection control decisions. Negative results should be considered in the context of a patient s recent exposures, history and the presence of clinical signs and symptoms consistent with COVID-19, and confirmed with a molecular assay, if necessary, for patient management. For in vitro diagnostic use. In the [place], only for use under an Emergency Use Authorization. In the [place], this test has not been FDA cleared or approved; this test has been authorized by FDA under an EUA for use by authorized laboratories; use by laboratories certified under the CLIA, 42 U.S.C. 263a, that meet requirements to perform moderate, high, or waived complexity tests and at the Point of Care (POC), i.e., in patient care settings operating under a CLIA Certificate of Waiver, Certificate of Compliance, or Certificate of Accreditation. This test has been authorized only for the detection of proteins from SARS-CoV-2, not for any other viruses or pathogens; and, in the [facility], this test is only authorized for the duration of the declaration that circumstances exist justifying the authorization of emergency use of in vitro diagnostics for detection and/or diagnosis of the virus that causes COVID-19 under Section 564(b)(1) of the Act, 21 U.S.C. 360bbb-3(b)(1), unless the authorization is terminated or revoked sooner. Rapid COVID Antigen ([facility])on 08-10-2023 Rapid COV Int NEG Ctl Pass Normal Fis her [facility] Comment on above: Performed By: #### 2 [id number], [id number] ####[address] [address] Rapid COV Int POS Ctl Pass Normal Fis [facility] Comment on above: Performed By: #### 2 [id number], [id number] ####[address] [place] [address] SARS-CoV+SARS-CoV-2 (COVID-19) Ag IA.rapid Ql (Resp) Not detected Normal Not Detected [facility] Comment on above: Result Comment: The [employer] Veritor? System for Rapid Detection of SARS-CoV-2 is a chromatographic digital immunoassay intended for the direct and qualitative detection of SARS-CoV-2 nucleocapsid antigens in nasal swabs from individuals who are suspected of COVID-19 by their healthcare provider within the first five days of the onset of symptoms. Negative results should be treated as presumptive, do not rule out SARS-CoV-2 infection and should not be used as the sole basis for treatment or patient management decisions, including infection control decisions. Negative results should be considered in the context of a patient?s recent exposures, history and the presence of clinical signs and symptoms consistent with COVID-19, and confirmed with a molecular assay, if necessary, for patient management. For in vitro diagnostic use. In the [place], only for use under an Emergency Use Authorization. In the [place], this test has not been FDA cleared or approved; this test has been authorized by FDA under an EUA for use by authorized laboratories; use by laboratories certified under the CLIA, 42 U.S.C. ?263a, that meet requirements to perform moderate, high, or waived complexity tests and at the Point of Care (POC), i.e., in patient care settings operating under a CLIA Certificate of Waiver, Certificate of Compliance, or Certificate of Accreditation. This test has been authorized only for the detection of proteins from SARS-CoV-2, not for any other viruses or pathogens; and, in the [place], this test is only authorized for the duration of the declaration that circumstances exist justifying the authorization of emergency use of in vitro diagnostics for detection and/or diagnosis of the virus that causes COVID-19 under Section 564(b)(1) of the Act, 21 U.S.C. ? 360bbb-3(b)(1), unless the authorization is terminated or revoked sooner. Performed By: #### 2 [id number], [id number] ####[facility] [address] Urineon 06-24-2023 Bacteria identified Cx Nom (U) Microbiology PROCEDURE: Urine Culture [R1] SOURCE: U CleanCatch BODY SITE: COLLECTED DATE/TIME: 06/22/2023 21:41 EST RECEIVED DATE/TIME: 06/22/2023 23:42 EST START DATE/TIME: 06/22/2023 23:42 EST FREE TEXT SOURCE: Troy Treadwell DO, DO, Noah S. FINAL REPORTS Final Report [] Verified Date/Time: 06/24/2023 10:16 EST <10,000 cfu/ml Mixed skin contaminants Performing Locations R1: This [facility] performed at: [facility], [address] [place] [address], [id number] , , [facility] Comment on above: Performed By: #### 1 [id number] ####[facility] [address] [place] [address] CT Abdomen/Pelvis w/ Contras ton 06-23-2023 CT Abdomen/Pelvis w/ Contrast Exam Date/Time: 06/22/2023 22:14 EST Reason for Exam: Abdominal pain, acute, nonlocalized;Other (please specify) Report IMPRESSION: There is subjectively inhomogeneous enhancement of the renal cortex bilaterally which may correlate with infection, inflammation. Otherwise there are no acute intra-abdominal changes. EXAMINATION: CT Abdomen/Pelvis w/ Contrast HISTORY: Abdominal pain, acute, nonlocalized TECHNIQUE: Contiguous axial CT sections of the abdomen and pelvis were obtained after IV contrast administration of 100 mL of Iopamidol, Isovue-300. Sagittal and coronal reformats have been obtained. All CT scans at this facility use dose modulation, iterative reconstruction, and/or weight based dosing when appropriate to reduce radiation dose to as low as reasonably achievable. COMPARISON: None FINDINGS Lung bases:Visualized lung bases show no significant pathology Liver: There is diffuse decreased attenuation of the liver consistent with fatty infiltration, steatosis. There are no focal solid or cystic lesions. There is no intra or extrahepatic bile duct dilatation. Gallbladder: No calcified gallstones. Normal gallbladder wall. No pericholecystic fluid. Spleen: There are no focal lesions or calcifications in the spleen. There is no splenomegaly Pancreas: The pancreas is normal in size and attenuation without focal lesions or dilatation of the pancreatic duct. Adrenal glands are negative. Kidneys: There are no radiopaque stones. There are no solid renal lesions. After contrast administration there is mild inhomogeneous enhancement of the renal cortex. There are prompt bilateral nephrograms after IV contrast administration with prompt excretion into nondilated collecting systems. There is no hydroureter. Bowel: There are no distended loops of bowel. The appendix is unremarkable. There are diverticula of the descending sigmoid colon without surrounding inflammation. Report Nodes: No lymphadenopathy. Aorta: There is no abdominal aortic aneurysm. Peritoneum: No free fluid or free air. Pelvis: The uterus is within normal limits. The urinary bladder is within normal limits. Abdominal wall: The abdominal wall is intact. Bones :There are no acute osseous changes. Soft tissues: The soft tissues are unremarkable. Ordering Provider: Troy Treadwell FINAL REPORT Dictated: 06/23/2023 8:23 am Clayton Cantrell MD, V. Signed (Electronic Signature): 06/23/2023 8:23 am Signed by: Clayton Cantrell MD, V. Transcribed by: LO Technologist: LYUBOV Technical Comments GFR (mL/min/1/73m2) n/a-age Contrast: Isovue 300 Contrast amount in ml's: 100 Rectal Contrast Given? No Normal [facility] Discharge Instructionson Discharge Instructions [id number] 158#1.00TIFF Normal [facility] ED Clinical Summaryon 2023 ED Clinical Summary [id number] ED Clinical Summary Person Information Name: OSMAN COHEN [facility] Age: 22 Years : 2000 Sex: Female Language: Georgian PCP: MINAL NEWMAN DO Marital Status: Single Visit Id: Visit Reason: Abdominal pain; BAD ABD PAIN Speciality: Acuity: 3 Enc Type: Emergency Med Service: Emergency Arrival: 06/22/2023 20:42:44 Discharge: 06/23/2023 01:40:10 LOS: 000 04:58 Checkin: 06/22/2023 20:42:44 Checkout: 06/23/2023 01:40:10 Dispo Type: Home (Routine DC) EVENTS: Event Name Event Status Request Date/Time Start Date/Time Complete Date/Time Arrive Complete 06/22/2023 20:42:44 06/22/2023 20:42:44 06/22/2023 20:42:44 Document Home Meds Request 06/22/2023 20:42:44 Triage Complete 06/22/2023 20:42:44 06/22/2023 20:52:51 06/22/2023 20:52:51 Pending Labs Complete 06/22/2023 20:48:58 06/22/2023 22:06:41 Lab Complete 06/22/2023 20:48:58 06/22/2023 22:06:41 Urine Collect Complete 06/22/2023 20:48:58 06/22/2023 22:06:41 Patient Care Complete 06/22/2023 20:48:58 06/22/2023 21:45:35 Registration Complete 06/22/2023 20:53:18 06/22/2023 20:53:18 06/22/2023 20:53:18 Reg Complete Request 06/22/2023 20:53:18 Reg Bed Request Complete 06/22/2023 20:53:18 06/22/2023 20:53:18 06/22/2023 20:53:18 Bed Assign Complete 06/22/2023 20:56:22 06/22/2023 20:56:22 06/22/2023 20:56:22 Dr Exam Complete 06/22/2023 20:56:22 06/22/2023 20:58:16 06/22/2023 20:58:16 RN Exam Complete 06/22/2023 20:56:22 06/22/2023 21:23:26 06/22/2023 21:23:26 Registration Request 06/22/2023 20:58:16 Meds Admin Complete 06/22/2023 21:32:20 06/22/2023 21:56:49 CT Complete 06/22/2023 21:32:20 06/22/2023 21:58:23 06/22/2023 22:14:47 Pending Labs Complete 06/22/2023 21:46:04 06/22/2023 21:46:04 06/22/2023 22:06:13 Lab Complete 06/22/2023 21:46:04 06/22/2023 21:46:04 06/22/2023 22:06:13 Pending Labs Complete 06/22/2023 21:48:43 06/22/2023 21:48:43 06/22/2023 21:48:44 Pending Labs Complete 06/22/2023 21:48:54 06/22/2023 21:48:54 06/22/2023 21:48:54 Pending Labs Inlab 06/22/2023 21:53:31 06/22/2023 21:53:31 Lab Inlab 06/22/2023 21:53:31 06/22/2023 21:53:31 Meds Admin Complete 06/23/2023 00:26:23 06/23/2023 01:01:07 Discharge Complete 06/23/2023 00:29:47 06/23/2023 01:40:22 06/23/2023 01:40:22 Transfer Complete 06/23/2023 01:40:22 06/23/2023 01:40:22 06/23/2023 01:40:22 [facility] [id number] PHYS DOC NOTES: MEDICAL INFORMATION: Prescriptions Given: New Medications [id number], [address] [facility] [place] [id number], [phone] cefpodoxime (cefpodoxime 200 mg Tab) 1 Tablets By Mouth every 12 hours for 10 Days. Refills: 0. naproxen (naproxen 500 mg Tab) 1 Tablets By Mouth 2 times a day for 10 Days. Refills: 0. PATIENT EDUCATION INFORMATION: Instructions: Urinary Tract Infection, Adult Follow up: With: Address: When: MINAL NEWMAN [address], [address] [place] [address] Business (1) In 3 days DIAGNOSIS: AP (abdominal pain); Acute UTI Normal [facility] ED Note-Physicianon 06-23-19 ED Note-Physician Basic Information Time Seen: Troy Treadwell DOHaroon 06/22/2023 20:58 Chief Complaint generallized abd pain for two hours. denies nausea or vomiting History of Present Illness HPI: Patient is a 22-year-old female with past medical history of migraines who presents the ED for abdominal pain. Patient states that this for started about 2 hours ago while she was at work. She states the pain is across her upper abdomen. She denies any nausea or vomiting. She denies any fever or chills. She denies any changes in bowel movements. She denies any urinary symptoms. Her last menstrual cycle was the beginning of the month and was normal for her. She denies chance of current . She denies any previous abdominal surgeries. She denies taking any medications prior to arrival. ROS: Pertinent review of systems conducted and is negative except as noted above. Physical exam: General: nontoxic appearing and in no distress HEENT: Mucous membranes moist Neuro: awake and alert Neck: supple, trachea midline Card: Heart regular rate and rhythm no murmur Resp: Lungs clear to auscultation no wheeze or rhonchi Abd: Soft and nondistended. Mild tenderness of bilateral upper quadrants without rebound or guarding. No CVA tenderness. Ext: No gross deformity or edema Physical Exam Vitals & Measurements T: 36.8 ?C(Oral) HR: 99(Peripheral) RR: 16 BP: 143/83 SpO2: 98% HT: 164 cm WT: 95.7 kg BMI: 35.58 Medical Decision Making MEDICAL DECISION MAKING Number and Complexity of Problems Differential Diagnosis: [] [facility] Data External documents reviewed: N/A My EKG interpretation: Noted in chart if applicable My CT interpretation: N/A My X-ray interpretation: Noted in chart if applicable My Ultrasound interpretation: N/A Decision rules/scores evaluated: N/A Discussed with: N/A Treatment and Disposition ED Course: Patient is nontoxic-appearing in no distress. She is afebrile here in the ED. She has some upper abdominal tenderness on exam but is nonperitoneal. Will obtain blood work as well as urinalysis and a CT of the abdomen pelvis. Patient was given IV fluids and a dose of Toradol for comfort. Blood work shows mild leukocytosis of 11.5. Urine does show signs of acute urinary tract infection. CT of the abdomen pelvis shows areas of slightly decreased cortical enhancement in both kidneys. No perinephric edema is seen but pyelonephritis is suspected. Delayed imaging shows no hydronephrosis or obstruction. On examination the patient is feeling significantly improved after the Toradol. I discussed with her the diagnosis of urinary tract infection. We will give her a dose of IV Rocephin in the ED to start her treatment and then we will write her a prescription for oral cefpodoxime. Will write her a course of naproxen for comfort. I discussed the importance of close follow-up with the primary care physician on a outpatient basis as well as return precautions should her symptoms change or worsen. Patient states understanding agreement's plan was discharged stable condition. Shared decision making: As above Code status: N/A Assessment/Plan Acute UTI (N39.0: Urinary tract infection, site not specified) AP (abdominal pain) (R10.9: Unspecified abdominal pain) Orders: cefpodoxime, 200 mg = 1 tab(s), Oral, q12hr, X 10 day(s), # 20 tab(s), Refills(s) 0, Pharmacy: [id number], 164, cm, 06/22/23 20:52:00 EST, Height/Length Dosing, 95.7, kg, 06/22/23 20:52:00 EST, Weight Dosing ceftriaxone + Sodium Chloride 0.9% intravenous solution 50 mL, 1,000 mg = 1 EA, IV Piggyback, Once, Stop date 06/23/23 0:26:00 EST, STAT, Start date 06/23/23 0:26:00 EST, 100 mL/hr, Infuse over 30 minute(s), 06/23/23 0:26:00 EST ketorolac, 15 mg = 1 mL, Injection, IV Push, Once, Stop date 06/22/23 21:31:00 EST, STAT, Start date 06/22/23 21:31:00 EST, 06/22/23 21:31:00 EST naproxen, 500 mg = 1 tab(s), Oral, BID, X 10 day(s), # 20 tab(s), Refills(s) 0, Pharmacy: [id number], 164, cm, 06/22/23 20:52:00 EST, Height/Length Dosing, 95.7, kg, 06/22/23 20:52:00 EST, Weight Dosing Sodium Chloride 0.9% intravenous solution, 1,000 mL, Soln-IV, IV, Once, Stop date 06/22/23 21:31:00 EST, STAT, Start date 06/22/23 21:31:00 EST, Infuse over 61, minute(s) Basic Metabolic Panel CBC w/ Auto Diff CT Abdomen/Pelvis w/ Contrast eGFR Extra Blue Tube Extra SST Tube Hepatic Function Panel Lipase Level Saline Lock Insert U Beta Hcg Qual UA With Cult Reflex Urine Culture Medications Administered Given ketorolac 15 mg/mL Inj, 15 mg, IV Push NS 1000 ml Bolus, 1000 mL, IV Disposition Plan Discharge Prescription List Prescriptions cefpodoxime 200 mg Tab, 200 mg= 1 tab(s), Oral, q12hr naproxen 500 mg Tab, 500 mg= 1 tab(s), Oral, BID Follow-up With When Contact Information MINAL NEWMAN In [address], [address] [place] [address]- Business (1) Additional Instructions: Patient Education Urinary Tract Infection, Adult Probl (more content not included)... Normal [facility] Comment on above: Result Comment: Elec tronically Signed By: Troy Treadwell DO\.br\Date and Time Signed: 06/23/23 00:33 EST ED Patient Education Noteon 06-23-2023 ED Patient Education Note Obstetrics and Gynecology Urinary Tract Infection, Adult A urinary tract infection (UTI) is an infection of any part of the urinary tract. The urinary tract includes the kidneys, ureters, bladder, and urethra. These organs make, store, and get rid of urine in the body. An upper UTI affects the ureters and kidneys. A lower UTI affects the bladder and urethra. What are the causes? Most urinary tract infections are caused by bacteria in your genital area around your urethra, where urine leaves your body. These bacteria grow and cause inflammation of your urinary tract. What increases the risk? You are more likely to develop this condition if: ? You have a urinary catheter that stays in place. ? You are not able to control when you urinate or have a bowel movement (incontinence). ? You are female and you: ? Use a spermicide or diaphragm for control. ? Have low estrogen levels. ? Are . ? You have certain genes that increase your risk. ? You are sexually active. ? You take antibiotic medicines. ? You have a condition that causes your flow of urine to slow down, such as: ? An enlarged prostate, if you are male. ? Blockage in your urethra. ? A kidney stone. ? A nerve condition that affects your bladder control (neurogenic bladder). ? Not getting enough to drink, or not urinating often. ? You have certain medical conditions, such as: ? Diabetes. ? A weak disease-fighting system (immunesystem). ? Sickle cell disease. ? Gout. ? Spinal cord injury. What are the signs or symptoms? Symptoms of this condition include: ? Needing to urinate right away (urgency). ? Frequent urination. This may include small amounts of urine each time you urinate. ? Pain or burning with urination. ? Blood in the urine. ? Urine that smells bad or unusual. ? Trouble urinating. ? Cloudy urine. ? Vaginal discharge, if you are female. ? Pain in the abdomen or the lower back. You may also have: ? Vomiting or a decreased appetite. ? Confusion. ? Irritability or tiredness. ? A fever or chills. ? Diarrhea. The first symptom in older adults may be confusion. In some cases, they may not have any symptoms until the infection has worsened. How is this diagnosed? This condition is diagnosed based on your medical history and a physical exam. You may also have other tests, including: ? Urine tests. ? Blood tests. ? Tests for STIs (sexually transmitted infections). If you have had more than one UTI, a cystoscopy or imaging studies may be done to determine the cause of the infections. How is this treated? Treatment for this condition includes: ? Antibiotic medicine. ? Qmbf-fof-ybwmojp medicines to treat discomfort. ? Drinking enough water to stay hydrated. If you have frequent infections or have other conditions such as a kidney stone, you may need to see a health care provider who specializes in the urinary tract (urologist). In rare cases, urinary tract infections can cause sepsis. Sepsis is a life-threatening condition that occurs when the body responds to an infection. Sepsis is treated in the hospital with IV antibiotics, fluids, and other medicines. Follow these instructions at home: Medicines ? Take dyns-cjw-bwamktu and prescription medicines only as told by your health care provider. ? If you were prescribed an antibiotic medicine, take it as told by your health care provider. Do not stop using the antibiotic even if you start to feel better. General instructions ? Make sure you: ? Empty your bladder often and completely. Do not hold urine for long periods of time. ? Empty your bladder after sex. ? Wipe from front to back after urinating or having a bowel movement if you are female. Use each tissue only one time when you wipe. ? Drink enough fluid to keep your urine pale yellow. ? Keep all follow-up visits. This is important. Contact a health care provider if: ? Your symptoms do not get better after 1?2 days. ? Your symptoms go away and then return. Get help right away if: ? You have severe pain in your back or your lower abdomen. ? You have a fever or chills. ? You have nausea or vomiting. Summary ? A urinary tract infection (UTI) is an infection of any part of the urinary tract, which includes the kidneys, ureters, bladder, and urethra. ? Most urinary tract infections are caused by bacteria in your genital area. ? Treatment for this condition often includes antibiotic medicines. ? If you were prescribed an antibiotic medicine, take it as told by your health care provider. Do not stop using the antibiotic even if you start to feel better. ? Keep all follow-up visits. This is important. This information is not intended to replace advice given to you by your health care provider. Make sure you discuss any questions you have with your health care provider. Document Revised: 12/27/2020 Document Revie (more content not included)... Normal [facility] ED Patient Summaryon 024 ED Patient Summary [address] [address] Patient Discharge Instructions Person Information Name: OSMAN COHEN Age: 22 Years Arrival Date: 06/22/2023 20:42:44 Discharge Diagnosis: AP (abdominal pain); Acute UTI Primary Care Physician: MINAL NEWMAN DO Provider Information Primary Provider: Troy Treadwell DO Advanced Brand Lead:None The exam and treatment you received in the Emergency Department were for an urgent problem and are not intended as complete care. It is important that you follow up with a doctor, nurse practitioner, or physician?s administrative assistant for ongoing care. If your symptoms become worse or you do not improve as expected and you are unable to reach your usual health care provider, you should return to the Emergency Department. We are available 24 hours a day. OSMAN COHEN has been given the following list of patient education materials, prescriptions and follow-up instructions: Follow-up Instructions: With: Address: When: MINAL NEWMAN [address], [facility] [address] [place] [address] Business (1) In 3 days In the event that this physician does not participate in your insurance network, please consult with your insurance company to find a nearby participating provider. Patient Education Materials: Urinary Tract Infection, Adult A MESSAGE TO ALL PATIENTS REGARDING OPIOIDS PRESCRIPTION OPIOIDS: WHAT YOU NEED TO KNOW Prescription opioids can be used to help relieve hdgiogim-ow-ibdlcx pain and are often prescribed following a surgery or injury, or for certain health conditions. These medications can be an important part of the treatment but also come with serious risks. It is important to work with your healthcare provider to make sure you are getting the safest, most effective care. WHAT ARE THE RISKS AND SIDE EFFECTS OF OPIOID USE? Prescription opioids carry serious risks of addiction and overdose, especially with prolonged use. An opioid overdose, often marked by slowed breathing, can cause sudden . The use of prescription opioids can have a number of side effects as well, even when taken as directed: ? Tolerance?meaning you might need to take more of the medication for the same pain relief ? Physical dependence?meaning you have symptoms of withdrawal when a medication is stopped ? Increased sensitivity to pain ? Constipation ? Nausea, vomiting, and dry mouth ? Sleepiness and dizziness ? Confusion ? Depression ? Low levels of testosterone that can result in lower sex drive, energy, and strength ? Itching and sweating RISKS ARE GREATER WITH: ? History of drug misuse, substance use disorder, or overdose ? Mental health conditions (such as depression or anxiety) ? Sleep apnea ? Older age (65 years and older) ? Avoid alcohol while taking prescription opioids. Also, unless specifically advised by your health care provider, medications to avoid include: ? Benzodiazepines (such as Xanax or Valium) ? Muscle relaxants (such as Soma or Flexeril) ? Hypnotics (such as Ambien or Lunesta) ? Other prescription opioids KNOW YOUR OPTIONS Talk to your health care provider about ways to manage your pain that don?t involve prescription opioids. Some of these options may actually work better and have fewer risks and side effects. Options may include: ? Pain relievers such as acetaminophen, ibuprofen, and naproxen ? Some medication that are also used for depression or seizures ? Physical therapy and exercise ? Cognitive behavioral therapy, a psychological, goal-directed approach, in which patients learn how to modify physical, behavioral, and emotional triggers of pain and stress. IF YOU ARE PRESCRIBED OPIOIDS FOR PAIN: ? Never take opioids in greater amounts or more often than prescribed. ? Follow up with your primary health care provider. o Work together to create a plan on how to manage your pain. o Talk about ways to help manage your pain that don?t involve prescription opioids. o Talk about any and all concerns and side effects. ? Help prevent misuse and abuse o Never sell or share prescription opioids. o Never use another person?s prescription opioids. ? Store prescription opioids in a secure place and out of reach of others (this may include visitors, children, friends, and family). ? Safely dispose of unused prescription opioids: Find your community drug take-back program or your pharmacy mail-back program, or flush them down the toilet, following guidance from the Food and Drug Administration (www.fda.gov/Drugs/ ResourcesForYou). ? Visit www.cdc.gov/drugove rdose to learn about the risks of opioids abuse and overdose. ? If you believe you may be struggling with addiction, tell your health care transitions manager and ask for guidance or call [facility]S [employer] Helpline at 8-957-422-BSJO. z Source: Depaditi (more content not included)... Normal [facility] RAD - Preliminary Cat Scan R eporton 06-23-2023 RAD - Preliminary Cat Scan Report [id number] 166#[id number] Normal [facility] BMPon 06-22-2023 Anion gap [Moles/Vol] 13 mmol/L Normal 6-16 [facility] Comment on above: Performed By: #### 2 066919, 2839380, 48082761, 4082920, 8926300 ####[facility] [address] [place] [address] BUN/Creat Ratio 14 No Units Normal 10-20 [facility] Comment on above: Performed By: #### 2 126170, 0737420, 15197985, 6041182, 7545853 ####[facility] [address] [place] [address] Calcium [Mass/Vol] 8.8 mg/dL Low 8.9-11.1 [facility] Comment on above: Performed By: #### 2 479582, 8194528, 13254469, 5058113, 6373531 ####[facility] [address] [place] [address] Chloride [Moles/Vol] 105 mmol/L Normal 101-111 [facility] Comment on above: Performed By: #### 2 684314, 9414283, 53379083, 9084788, 3440564 ####[facility] [address] [place] [address] CO2 [Moles/Vol] 26 mmol/L Normal 21-31 [facility] Comment on above: Performed By: #### 2 622644, 8240457, 79014089, 2143085, 8484859 ####[facility] [address] [place] [address] Creatinine [Mass/Vol] 1.0 mg/dL Normal 0.5-1.3 [facility] Comment on above: Performed By: #### 2 153251, 7136175, 53158299, 3511958, 8009921 ####[facility] [address] [place] [address] Glucose [Mass/Vol] 83 mg/dL Normal 55-199 [facility] Comment on above: Performed By: #### 2 280418, 1882704, 81834767, 4397141, 8852005 ####[facility] [address] [place] [address] Potassium [Moles/Vol] 3.6 mmol/L Normal 3.5-5.3 [facility] Comment on above: Performed By: #### 2 850357, 3153084, 87489912, 9250614, 2399818 ####[facility] [address] [place] [address] Sodium [Moles/Vol] 140 mmol/L Normal 135-145 [facility] Comment on above: Performed By: #### 2 712644, 7090673, 62760382, 1928064, 2444082 ####[facility] [address] [place] [address] Urea nitrogen [Mass/Vol] 14 mg/dL Normal 5-21 [facility] Comment on above: Performed By: #### 2 133752, 0392970, 68986932, 8357931, 3917652 ####[address] [place] [address] CBC w/ Auto Diffon 4 Basophil Absolute 0.0 E9/L Normal 0.0-0.2 [facility] Comment on above: Performed By: #### 2 870257, 0168470, 40160450, 2049714, 3289582 ####[address] [address] Basophils/100 WBC (Bld) 0.4 % Normal 0.0-2.0 [facility] Comment on above: Performed By: #### 2 332914, 9432013, 12745170, 1880340, 1128000 ####[address] [address] Eos Absolute 0.1 E9/L Normal 0.0-0.5 [facility] Comment on above: Performed By: #### 2 055239, 7911759, 00716503, 4044012, 0100415 ####[address] [address] Eosinophils/100 WBC (Bld) 1.0 % Normal 0.0-8.0 [facility] Comment on above: Performed By: #### 2 781615, 6347272, 74342353, 7901110, 1072806 ####[address] [address] Erythrocyte distribution width (RBC) [Ratio] 13.2 % Normal 10.9-14.2 [facility] Comment on above: Performed By: #### 2 805953, 6519757, 48114200, 1553902, 0477971 ####[address] [address] Hematocrit (Bld) [Volume fraction] 39.0 % Normal 34.0-46.0 [facility] Comment on above: Performed By: #### 2 237646, 6432759, 28966741, 2961502, 3601030 ####[address] [place] [address] Hemoglobin (Bld) [Mass/Vol] 13.0 g/dL Normal 12.0-16.0 [facility] Comment on above: Performed By: #### 2 021342, 0474502, 76864701, 0293549, 4639271 ####[address] [address] Lymph Absolute 3.1 E9/L Normal 1.0-4.0 [facility] Comment on above: Performed By: #### 2 565546, 9155543, 53592606, 5703333, 7522681 ####[address] Lymphocytes/100 WBC (Bld) 27.3 % Normal 14.0-50.0 [facility] Comment on above: Performed By: #### 2 537874, 1352829, 95252436, 3166337, 6854222 ####[place] MCH (RBC) [Entitic mass] 25.2 pg Low 27.0-34.0 [facility] Comment on above: Performed By: #### 2 973843, 2564880, 89173179, 0972762, 5445659 ####[address] [address] MCHC (RBC) [Mass/Vol] 33.0 g/dL Normal 31.4-36.0 [facility] Comment on above: Performed By: #### 2 711909, 8644613, 69172127, 0755078, 3713420 ####[address] [address] MCV (RBC) [Entitic vol] 76.5 fL Low 80.0-100.0 [facility] Comment on above: Performed By: #### 2 383748, 0599010, 94049936, 2971027, 1386806 ####[place] [address] [place] Absolute 1.1 E9/L High 0.2-1.0 [facility] Comment on above: Performed By: #### 2 304218, 2853650, 19148262, 5178966, 0073596 ####[facility] [address] [place] [address] Monocytes/100 WBC (Bld) 9.3 % Normal 4.0-14.0 [facility] Comment on above: Performed By: #### 2 666259, 1568359, 36716366, 0969474, 1063532 ####[facility] [address] [place] [address] Neutro Absolute 7.1 E9/L Normal 2.0-7.5 [facility] Comment on above: Performed By: #### 2 426180, 1498297, 34354825, 5254968, 2034123 ####[facility] [address] [place] [address] Neutro Auto 62.0 % Normal 36.0-75.0 [facility] Comment on above: Performed By: #### 2 917554, 7261513, 32282948, 2152436, 9349545 ####[facility] [address] [place] [address] Platelet 261.0 E9/L Normal 150.0-500.0 [facility] Comment on above: Performed By: #### 2 141616, 7179543, 08383590, 7751091, 5895516 ####[facility] [address] [place] [address] Platelet mean volume (Bld) [Entitic vol] 6.5 fL Normal 6.4-10.8 [facility] Comment on above: Performed By: #### 2 364463, 4413275, 70845183, 4217673, 2508948 ####[facility] [address] [place] [address] RBC 5.2 E12/L Normal 4.3-5.9 [facility] Comment on above: Performed By: #### 2 823863, 0209158, 48014382, 3407162, 8807959 ####[facility] [address] [place] [address] WBC 11.5 E9/L High 4.0-11.0 [facility] Comment on above: Performed By: #### 2 552402, 0837563, 87050263, 9664050, 8922647 ####[facility] [address] [place] [address] CHEMISTRYOrdered By: SYSTEM SYSTEM on 06-22-2023 Albumin [Mass/Vol] 4.0 g/dL Normal 3.3 - 5.0 gm/dL [facility] Chem Albumin/Globulin [Mass ratio] 1.5 {ratio} Normal 1.1 - 2.2 [facility] Alk Phos 90 [iU]/d Normal 21 - 98 Int._Unit/L [facility] ALT 21 [iU]/d Normal 6 - 46 Int._Unit/L [facility] Anion gap [Moles/Vol] 13 mmol/L Normal 6 - 16 mEq/L [facility] AST 17 [iU]/d Normal 5 - 43 Int._Unit/L [facility] Bili Direct 0.1 mg/dL Normal 0.0 - 0.4 mg/dL [facility] Bili Indirect 0.3 mg/dL Normal 0.1 - 0.9 mg/dL [facility] Bili Total 0.4 mg/dL Normal 0.0 - 1.1 mg/dL [facility] Calcium [Mass/Vol] 8.8 mg/dL Low 8.9 - 11. 1 mg/dL [facility] Chloride [Moles/Vol] 105 mmol/L Normal 101 - 1 11 mmol/L [facility] CO2 [Moles/Vol] 26 mmol/L Normal 21 - 31 mmol/L [facility] Creatinine [Mass/Vol] 1.0 mg/dL Normal 0.5 - 1.3 mg/dL [facility] eGFR 82 mL/min/1.73 m2 Normal >=59mL/min / 1.73 m2 [facility] Globulin (S) [Mass/Vol] 2.7 g/dL Normal 1.4 - 4.0 gm/dL [facility] Glucose [Mass/Vol] 83 mg/dL Normal 55 - 199 mg/dL [facility] Lipase Lvl 15 unit/L Normal 13 - 58 unit/L [facility] Potassium [Moles/Vol] 3.6 mmol/L Normal 3.5 - 5.3 mmol/L [facility] Protein [Mass/Vol] 6.7 g/dL Normal 6.0 - 7.8 gm/dL [facility] Sodium [Moles/Vol] 140 mmol/L Normal 135 - 145 mmol/L [facility] Urea nitrogen [Mass/Vol] 14 mg/dL Normal 5 - 21 mg/dL [facility] Urea nitrogen/Creatinine [Mass ratio] 14 mg/mg Normal 10 - 20 [facility] Consent for Treatmenton 06-01 Consent for Treatment [id number]#[id number] Normal [facility] HEMATOLOGYOrdered By: SYSTEM SYSTEM on 06-22-2023 Basophil Absolute 0.0 E9/L Normal 0.0 - 0.2 E9/L [facility]e Basophils/100 WBC (Bld) 0.4 % Normal 0.0 - 2.0 % [facility] Eos Absolute 0.1 E9/L Normal 0.0 - 0.5 E9/L [facility] Eosinophils/100 WBC (Bld) 1.0 % Normal 0.0 - 8.0 % [facility] Erythrocyte distribution width (RBC) [Ratio] 13.2 % Normal 10.9 - 14.2 % [facility] Hematocrit (Bld) [Volume fraction] 39.0 % Normal 34.0 - 46.0 % [facility] Hemoglobin (Bld) [Mass/Vol] 13.0 g/dL Normal 12.0 - 16.0 gm/dL [facility] Lymph Absolute 3.1 E9/L Normal 1.0 - 4.0 E9/L [facility] Lymphocytes/100 WBC (Bld) 27.3 % Normal 14.0 - 50.0 % [facility]e MCH (RBC) [Entitic mass] 25.2 pg Low 27. 0 - 34.0 pg [facility] Heme MCHC (RBC) [Mass/Vol] 33.0 g/dL Normal 31.4 - 36.0 gm/dL [facility] MCV (RBC) [Entitic vol] 76.5 fL Low 80.0 - 100.0 fL [facility]e [place]am Absolute 1.1 E9/L High 0.2 - 1.0 E9/L [facility] Monocytes/100 WBC (Bld) 9.3 % Normal 4.0 - 14.0 % [facility] Neutro Absolute 7.1 E9/L Normal 2.0 - 7.5 E9/L [facility] Neutro Auto 62.0 % Normal 36.0 - 75.0 % [facility] Platelet 261.0 E9/L Normal 150.0 - 500.0 E9/L [facility] Platelet mean volume (Bld) [Entitic vol] 6.5 fL Normal 6.4 - 10.8 fL [facility] RBC 5.2 E12/L Normal 4.3 - 5.9 E12/L [facility] WBC 11.5 E9/L High 4.0 - 11.0 E9/L [facility] Hep Func Panelon 06-22-2023 Albumin [Mass/Vol] 4.0 g/dL Normal 3.3-5.0 [facility] Comment on above: Performed By: #### 2 055596, 9602208, 85916969, 2824087, 8914302 ####[facility] [address] [place] [address] Albumin/Globulin [Mass ratio] 1.5 {ratio} Normal 1.1-2.2 [facility] Comment on above: Performed By: #### 2 519771, 2314334, 98733747, 2020236, 3324190 ####[facility] [address] [place] [address] Alk Phos 90 Int._Unit/L Normal 21-98 [facility] Comment on above: Performed By: #### 2 869388, 6322530, 40476492, 9868485, 1246143 ####[facility] [address] [place] [address] ALT 21 Int._Unit/L Normal 6-46 [facility] Comment on above: Performed By: #### 2 383294, 7280794, 40061040, 3671250, 7354322 ####[facility] [address] [place] [address] AST 17 Int._Unit/L Normal 5-43 [facility] Comment on above: Performed By: #### 2 102629, 6855257, 97933516, 2937732, 7479109 ####[facility] [address] [place] [address] Bili Direct 0.1 mg/dL Normal 0.0-0.4 [facility] Comment on above: Performed By: #### 2 284963, 2033164, 11341368, 8221288, 5319974 ####[address] [address] Bili Indirect 0.3 mg/dL Normal 0.1-0.9 [facility] Comment on above: Performed By: #### 2 249244, 6591861, 37798165, 5446415, 0095204 ####[address] [address] Bili Total 0.4 mg/dL Normal 0.0-1.1 [facility] Comment on above: Performed By: #### 2 664752, 5542663, 46498074, 8114050, 5719112 ####[address] [address] Globulin (S) [Mass/Vol] 2.7 g/dL Normal 1.4-4.0 [facility] Comment on above: Performed By: #### 2 027487, 4095448, 17630496, 4403682, 5644828 ####[address] [place] [address] Protein [Mass/Vol] 6.7 g/dL Normal 6.0-7.8 [facility] Comment on above: Performed By: #### 2 354187, 9790583, 42079684, 6498013, 0989194 ####[address] [place] [address] Laboratory - Microbiology an d Antimicrobial susceptibilityOrdered By: Rossi Govea on 06-22-2023 Bacteria identified Cx Nom (U) 1,000 cfu/ml Mixed skin contaminants [facility] Lipase Levelon 06-22-2023 Lipase Lvl 15 unit/L Normal 13-58 [facility] Comment on above: Performed By: #### 2 933005, 8764518, 75153016, 4510689, 9329723 ####[facility] [address] [place] [address] SEROLOGYOrdered By: Samaria mancia on 06-22-2023 HCG.beta subunit (U) [Moles/Vol] Negative Normal [facility] Man Sero U BetaHcg Qualon 06-22-2023 HCG.beta subunit (U) [Moles/Vol] Negative Normal [facility] Comment on above: Performed By: #### 1 9731851, 0655844, 49291683 ####[facility] [address] [place] [address] UA With Cult Reflexon 2023 Bacteria LM Ql (Urine sed) 1+ /HPF Abnormal Trace [facility] Comment on above: Performed By: #### 1 7311988, 6570455, 67411111 ####[facility] [address] [place] [address] Bilirubin Ql (U) Negative Normal Negative [facility] Comment on above: Performed By: #### 1 7667227, 6763495, 97598671 ####[facility] [address] [place] [address] Clarity (U) SL CLOUDY Abnormal Clear [facility] Comment on above: Performed By: #### 1 1455693, 1159045, 28952916 ####[facility] [address] [place] [address] Color (U) YELLOW Normal Yellow [facility] Comment on above: Performed By: #### 1 4081874, 7341904, 43285828 ####[facility] [address] [place] [address] Epithelial cells.squamous LM.HPF (Urine sed) [#/Area] 3-4 Normal 0-2 [facility] Comment on above: Performed By: #### 1 2929040, 7285136, 13871581 ####[facility] [address] [place] [address] Glucose Test strip (U) [Mass/Vol] Negative Normal Negative [facility] Comment on above: Performed By: #### 1 1971932, 1619937, 80752613 ####[facility] [address] [place] [address] Hemoglobin Ql (U) TRACE Abnormal Negative [facility] Comment on above: Performed By: #### 1 9461839, 7275458, 75994425 ####[facility] [address] [place] [address] Ketones (U) [Mass/Vol] Negative Normal Negative [facility] Comment on above: Performed By: #### 1 5552693, 2850606, 68096361 ####[facility] [address] [place] [address] [place].plasma/Mathiston.R BC (Bld) [Mass ratio] 0-3 Normal 0-3 [facility] Comment on above: Performed By: #### 1 5262481, 0704441, 98335999 ####[facility] [address] [place] [address] Nitrite Ql (U) Negative Normal Negative [facility] Comment on above: Performed By: #### 1 7956802, 9714474, 37228336 ####[facility] [address] [place] [address] pH (U) 6.0 [pH] Invalid Interpretation Code 5.0-9.0 [facility] Comment on above: Performed By: #### 1 8697784, 7153164, 61113503 ####[facility] [address] [place] [address] Protein (U) [Mass/Vol] 1+ Abnormal Negative [facility] Comment on above: Performed By: #### 1 2000055, 1248103, 79095181 ####[facility] [address] [place], [place] [address] Specific gravity (U) [Rel density] 1.010 Invalid Interpretation Code 1.005-1.030 [facility] Comment on above: Performed By: #### 1 7864243, 8235110, 25472441 ####[place] [address] Type of Urine collection method Clean Catch Normal [facility] Comment on above: Performed By: #### 1 1243180, 0065512, 23840846 ####[place] [address] Urobilinogen Qn (U) 0.2 {Enrique'U}/dL Normal 0.0-1.0 [facility] Comment on above: Performed By: #### 1 9189192, 1754744, 66498707 ####[place] [address] WBC Auto Ql (U) 2+ Abnormal Negative [facility] Comment on above: Performed By: #### 1 9633845, 8333176, 48904970 ####[address] [address] WBC LM.HPF (Urine sed) [#/Area] 6-15 Abnormal 0-5 [facility] Comment on above: Performed By: #### 1 7611198, 5706071, 11675298 ####[place] [address] URINALYSISOrdered By: Samaria Perez on 06-22-2023 Bacteria LM Ql (Urine sed) 1+ /HPF Invalid Interpretation Code Trace/HPF [facility] UA Auto SS Bilirubin Ql (U) Negative (06/22/23 9:41 PM) Normal Negative [facility] UA Auto SS Clarity (U) Slightly Cloudy *ABN* (06/22/23 9:41 PM) Invalid Interpretation Code Clear [facility] UA Auto SS Color (U) Yellow (06/22/23 9:41 PM) Normal Yellow [facility] UA Auto SS Epithelial cells.squamous LM.HPF (Urine sed) [#/Area] 3-4 /HPF Normal 0-2/HPF [facility] UA Aut o SS Glucose Test strip (U) [Mass/Vol] Negative (06/22/23 9:41 PM) Normal Negative [facility] UA Auto SS Hemoglobin Ql (U) Trace *ABN* (06/22/23 9:41 PM) Invalid Interpretation Code Negative [facility] UA Auto SS Ketones (U) [Mass/Vol] Negative (06/22/23 9:41 PM) Normal Negative [facility] UA Auto SS Math[place].plasma/Mathiston.R BC (Bld) [Mass ratio] 0-3 /HPF Normal 0-3/HPF [facility] UA Au to SS Nitrite Ql (U) Negative (06/22/23 9:41 PM) Normal Negative [facility] UA Auto SS pH (U) 6.0 *NA* (06/22/23 9:41 PM) Invalid Interpretation Code 5.0 - 9.0 [facility] UA Auto SS Protein (U) [Mass/Vol] 1+ *ABN* (06/22/23 9:41 PM) Invalid Interpretation Code Negative [facility] UA Auto SS Specific gravity (U) [Rel density] 1.010 *NA* (06/22/23 9:41 PM) Invalid Interpretation Code 1.005 - 1.030 [facility] UA Auto SS UA Spec Desc Clean Catch (06/22/23 9:41 PM) Normal [facility] UA Auto SS Urobilinogen Qn (U) [id number] {Enrique'U}/dL Normal 0.0 - 1.0 EU/dL [facility] UA Auto SS WBC Auto Ql (U) 2+ *ABN* (06/22/23 9:41 PM) Invalid Interpretation Code Negative [facility] UA Auto SS WBC LM.HPF (Urine sed) [#/Area] 6-15 /HPF Invalid Interpretation Code 0-5/HPF [facility] UA Auto SS eGFRon 06-22-2023 eGFR 82 mL/min/1.73 m2 Normal >=59 [facility] Comment on above: Order Comment: Order added by Discern Expert. Performed By: #### [id number] ####[facility] [id number] [place] [address] Consenton 06-21-2023 Consent [id number]#1.00TIFF Normal [facility] Medicine Office/Clini c Noteon 06-20-2023 Family Medicine Office/Clinic Note Chief Complaint headache HPI Staff 22 yr old female here for headache starting this morning. pt gets migraines frequent. History of Present Illness Reviewed and agree with above documented HPI by family practice medical doctor. Portions of this record may have been created with voice recognition artificial intelligence software, specifically [employer], [employer] and or [employer]. Substitutions may have occurred due to the inherent limitations of voice recognition and artificial intelligence software. Patient is a 22-year-old female presenting to [facility], for typical type migraine, started last night, tried fycq-ftc-ikkdiro medication her migraine medication without any relief, states the nausea improved, states she is having slight photophobia but not worsening as of last night, states she was unable to go to work today. Patient denies any worsening headache of her life, different type of headache, sinus type headache, history of traumatic brain injury, upper respiratory infection, chest pain, shortness of breath, palpitation, or weakness. Review of Systems PHQ Score Initial Depression Screen Score: 0 SCORE Physical Exam Vitals & Measurements T: 36.9 ?C(Oral) HR: 95(Peripheral) BP: 119/78 SpO2: 97% HT: 65 in HT: 165 cm WT: 97.7 kg WT: 214.94 lb BMI: 35.89 General: Well developed, well nourished, in no acute distress. Patient does not appear ill or septic. No respiratory distress. No difficulty swallowing. Answers questions appropriately and in complete sentences. Follows commands appropriately. Head: Normocephalic/atrau matic. No upper respiratory infection. No sinus infections. Eyes: Pupils equal, round, and reactive to light. Conjunctivae and sclerae normal, Ears: Bilateral TMs and bilateral external canals are both within normal limits. Hearing is intact. Nose: No deformity, discharge, inflammation, or lesions Mouth: Mucous membranes moist. Normal oropharynx, and posterior pharynx without erythremia, lesions, or exudates. Neck: Neck supple. No masses or palpable cervical nodes. Trachea midline. No mastoid tenderness. Lungs: Normal respiratory effort and clear to auscultation throughout, no wheezing, rales, crackles, or decreased breath sounds. Cardio: regular rate and rhythm, no murmur Extremity: No clubbing, cyanosis, edema, or deformity, with normal ROM in both upper and lower bilateral extremities Neurologic: Grossly normal Skin: No rashes, ulcerations, or suspicious lesions Lymph Nodes: no lad Mental Status: alert, active Assessment/Plan Patient verbally understands that we cannot do any IV fluids or IV medications at the convenient care. States she is not , she is currently menstrual cycle agrees to IM Toradol 30 mg, and declines any nausea medication at this time. Reassessed patient after IM Toradol, states helping with the pain, she is feeling much better. 22-year-old female presenting to convenient care for typical type migraine, started last night, no relief with bifj-gac-wcnsxlv medication or her migraine medication, patient symptom relief with IM Toradol, no worsening headache of life, different type of headache, sudden onset type of headache, or history of traumatic brain injury. Patient was neurologically intact. Declined a prescription for Zofran at this time. Instructed patient to take xzsf-fkn-rbfinty ibuprofen and Tylenol every 8 hours as needed for pain or fever. Drink plenty water stay hydrated. Given work excuse note. Follow-up with primary care provider. 1. Migraine headache (G43.909: Migraine, unspecified, not intractable, without status migrainosus) See above Ordered: ketorolac, 30 mg = 1 mL, Injection, IntraMuscular, Once, Stop date 06/19/23 15:12:00 EST, Routine, Start date 06/19/23 15:12:00 EST, 06/19/23 15:12:00 EST 2. BMI 35.0-35.9,adult (Z68.35: Body mass index [BMI] 35.0-35.9, adult) The standard range for ages 18 and older is >=18.5 and < 25 kg/m2. Your BMI today was above this range, this falls in the overweight to obese category and there are medical benefits to weight loss. We can offer counselling, referral, and/or medical support in addressing this problem. Your BMI and weight management will be followed at subsequent visits. Follow-up With When Contact Information NONE, XXXX [phone] Additional Instructions: Patient Education BMI for Adults Migraine Headache, Xfxm-mu-Lcse Problem List/Past Medical History Ongoing BMI 35.0-35.9,adult Migraine headache Historical Migraine Medications Naprosyn 500 mg Tab, 500 mg= 1 tab(s), Oral, BID naproxen 500 mg Tab, 500 mg= 1 tab(s), Oral, BID Mirza-Synephrine 12 Hour Extra Moisturizing 0.05% nasal spray, 2 spray(s), Nasal, BID Allergies Latex (Swelling) Social History Alcohol - Denies Alcohol Use, 10/22/2022 Substance Abuse - Denies Substance Abuse, 10/22/2022 Tobacco - Denies Tobacco Use, 10/22/2022 Never (less than 100 in lifetime) Tobacco Use:. Never Smokeless Tobacco (more content not included)... Normal [facility] Comment on above: Result Comment: Elec tronically Signed By: EVAN MUNOZ, EDNA\.br\Date and Time Signed: 06/20/23 14:40 EST Patient Educationon 06-20-19 Patient Education Neurology Migraine Headache A migraine headache is a very strong throbbing pain on one side or both sides of your head. This type of headache can also cause other symptoms. It can last from 4 hours to 3 days. Talk with your doctor about what things may bring on (trigger) this condition. What are the causes? The exact cause of this condition is not known. This condition may be triggered or caused by: ? Drinking alcohol. ? Smoking. ? Taking medicines, such as: ? Medicine used to treat chest pain (nitroglycerin). ? control pills. ? Estrogen. ? Some blood pressure medicines. ? Eating or drinking certain products. ? Doing physical activity. Other things that may trigger a migraine headache include: ? Having a menstrual period. ? . ? Hunger. ? Stress. ? Not getting enough sleep or getting too much sleep. ? Weather changes. ? Tiredness (fatigue). What increases the risk? ? Being 25?55 years old. ? Being female. ? Having a family history of migraine headaches. ? Being . ? Having depression or anxiety. ? Being very overweight. What are the signs or symptoms? ? A throbbing pain. This pain may: ? Happen in any area of the head, such as on one side or both sides. ? Make it hard to do daily activities. ? Get worse with physical activity. ? Get worse around bright lights or loud noises. ? Other symptoms may include: ? Feeling sick to your stomach (nauseous). ? Vomiting. ? Dizziness. ? Being sensitive to bright lights, loud noises, or smells. ? Before you get a migraine headache, you may get warning signs (an aura). An aura may include: ? Seeing flashing lights or having blind spots. ? Seeing bright spots, halos, or zigzag lines. ? Having tunnel vision or blurred vision. ? Having numbness or a tingling feeling. ? Having trouble talking. ? Having weak muscles. ? Some people have symptoms after a migraine headache (postdromal phase), such as: ? Tiredness. ? Trouble thinking (concentrating). How is this treated? ? Taking medicines that: ? Relieve pain. ? Relieve the feeling of being sick to your stomach. ? Prevent migraine headaches. ? Treatment may also include: ? Having acupuncture. ? Avoiding foods that bring on migraine headaches. ? Learning ways to control your body functions (biofeedback). ? Therapy to help you know and deal with negative thoughts (cognitive behavioral therapy). Follow these instructions at home: Medicines ? Take wdni-qzn-pbidydz and prescription medicines only as told by your doctor. ? Ask your doctor if the medicine prescribed to you: ? Requires you to avoid driving or using heavy machinery. ? Can cause trouble pooping (constipation). You may need to take these steps to prevent or treat trouble pooping: ? Drink enough fluid to keep your pee (urine) pale yellow. ? Take wqpf-qiw-kbjwoui or prescription medicines. ? Eat foods that are high in fiber. These include beans, whole grains, and fresh fruits and vegetables. ? Limit foods that are high in fat and sugar. These include fried or sweet foods. Lifestyle ? Do not drink alcohol. ? Do not use any products that contain nicotine or tobacco, such as cigarettes, e-cigarettes, and chewing tobacco. If you need help quitting, ask your doctor. ? Get at least 8 hours of sleep every night. ? Limit and deal with stress. General instructions ? Keep a journal to find out what may bring on your migraine headaches. For example, write down: ? What you eat and drink. ? How much sleep you get. ? Any change in what you eat or drink. ? Any change in your medicines. ? If you have a migraine headache: ? Avoid things that make your symptoms worse, such as bright lights. ? It may help to lie down in a dark, quiet room. ? Do not drive or use heavy machinery. ? Ask your doctor what activities are safe for you. ? Keep all follow-up visits as told by your doctor. This is important. Contact a doctor if: ? You get a migraine headache that is different or worse than others you have had. ? You have more than 15 headache days in one month. Get help right away if: ? Your migraine headache gets very bad. ? Your migraine headache lasts longer than 72 hours. ? You have a fever. ? You have a stiff neck. ? You have trouble seeing. ? Your muscles feel weak or like you cannot control them. ? You start to lose your balance a lot. ? You start to have trouble walking. ? You pass out (faint). ? You have a seizure. Summary ? A migraine headache is a very strong throbbing pain on one side or both sides of your head. These headaches can also cause other symptoms. ? This condition may be treated with medicines and changes to your lifestyle. ? Keep a journal to find out what may bring on your migraine headaches. ? Contact a doctor if you get a migraine headache that is different or worse than other (more content not included)... Normal [facility] Ambulatory Visit Summaryon 0 06-19-2023 Ambulatory Visit Summary OSMAN COHEN :2000 Visit Date:06/19/2023 Ambulatory Visit Instructions Your Diagnosis Migraine headache Your Care Team Attending Physician - EVAN MUNOZ, EDNA Primary Care Physician - NONE, XXXX This Is Your Medications List naproxen (Naprosyn 500 mg Tab) naproxen (naproxen 500 mg Tab) oxymetazoline nasal (Mirza-Synephrine 12 Hour Extra Moisturizing 0.05% nasal spray) Discharge Vitals Temperature (Oral) 36.9 ?C Heart Rate (Peripheral) 95 Blood Pressure 119/78 Height 165 cm Height 65 in Weight 97.7 kg Weight 214.94 lb BMI 35.89 Medications What How Much When Instructions Unchanged naproxen (Naprosyn 500 mg Tab) 1 Tablets By Mouth 2 times a day Unchanged naproxen (naproxen 500 mg Tab) 1 Tablets By Mouth 2 times a day Take one tab by mouth two times a day Unchanged oxymetazoline nasal (Mirza-Synephrine 12 Hour Extra Moisturizing 0.05% nasal spray) 2 Sprays Nasal Inhalation 2 times a day Allergies Latex (Swelling) Problems Ongoing - Any problem that you are currently receiving treatment for. Migraine headache Historical - Any problem that you are no longer receiving treatment for. Migraine Patient Survey You may receive a survey via text or e-mail asking about your office visit. Please share your experience with us by completing your survey. We appreciate your feedback and thank you for choosing us for your care. [facility] Patient Letter FTon 2023 Patient Letter [facility] [address] [place] [address] June 19, 2023 OSMAN COHEN [address] [place] [address] : 2000 Please excuse OSMAN COHEN from work . Date and/or Time of Absence: From: 06/19/23 May return to work on: 06/20/23 Restrictions: None Comments: Please excuse due to an acute illness. Provider Signature: Edna Kidd PA-C [facility] [address] [place] [address] [facility] Quick Strepon 06-12-2023 S. pyogenes Org specific cx Ql (Throat) Negative Blogvio Other Quick Strep MD [facility] [employer] Other Outside Recordson 04-05-2023 Outside Records [id number]#1.00TIFF [facility] Consent for Treatmenton Consent for Treatment [id number]#1.00TIFF [facility] Discharge Instructionson Discharge Instructions [id number] 93#1.00TIFF Normal [facility] ED Clinical Summaryon 2022 ED Clinical Summary [place] [id number] ED Clinical Summary Person Information Name: OSMAN COHEN [facility] Age: 22 Years : 2000 Sex: Female Language: Georgian PCP: NONE, XXXX Marital Status: Single Visit Id: Visit Reason: Toe injury - Minor; Toe pain-swelling; RIGHT TOE PAIN Speciality: Acuity: 4 Enc Type: Emergency Med Service: Emergency Arrival: 04/04/2023 12:12:07 Discharge: 04/04/2023 13:56:05 LOS: 000 01:44 Checkin: 04/04/2023 12:12:07 Checkout: 04/04/2023 13:56:05 Dispo Type: Home (Routine DC) EVENTS: Event Name Event Status Request Date/Time Start Date/Time Complete Date/Time Arrive Complete 04/04/2023 12:12:07 04/04/2023 12:12:07 04/04/2023 12:12:07 Document Home Meds Request 04/04/2023 12:12:07 Triage Complete 04/04/2023 12:12:07 04/04/2023 12:20:08 04/04/2023 12:20:08 Bed Assign Complete 04/04/2023 12:16:10 04/04/2023 12:16:10 04/04/2023 12:16:10 Dr Exam Complete 04/04/2023 12:16:10 04/04/2023 12:25:26 04/04/2023 12:25:26 RN Exam Complete 04/04/2023 12:16:10 04/04/2023 12:28:59 04/04/2023 12:28:59 Registration Complete 04/04/2023 12:25:26 04/04/2023 12:33:57 04/04/2023 12:33:57 Reg Complete Request 04/04/2023 12:33:57 Reg Bed Request Complete 04/04/2023 12:33:57 04/04/2023 12:33:57 04/04/2023 12:33:57 X-Ray Complete 04/04/2023 12:43:11 04/04/2023 13:18:29 04/04/2023 13:19:13 Meds Admin Complete 04/04/2023 12:43:11 04/04/2023 12:46:12 Wet Read Request 04/04/2023 13:19:13 Patient Care Request 04/04/2023 13:39:13 Discharge Complete 04/04/2023 13:40:19 04/04/2023 13:56:12 04/04/2023 13:56:12 Transfer Complete 04/04/2023 13:56:12 04/04/2023 13:56:12 04/04/2023 13:56:12 ADDRESS: [facility] [address] [facility] [id number] [facility] DOC NOTES: MEDICAL INFORMATION: Prescriptions Given: Medications to Continue with No Changes Other Medications naproxen (Naprosyn 500 mg Tab) 1 Tablets By Mouth 2 times a day. Refills: 0. naproxen (naproxen 500 mg Tab) 1 Tablets By Mouth 2 times a day. Take one tab by mouth two times a day. Refills: 0. oxymetazoline nasal (Mirza-Synephrine 12 Hour Extra Moisturizing 0.05% nasal spray) 2 Sprays Nasal Inhalation 2 times a day. Refills: 0. PATIENT EDUCATION INFORMATION: Instructions: How to Use a Cast Shoe; Foot Contusion Follow up: With: Address: When: Nicholas Tinsleyyingkimberly [address] [place], [place] [id number] [phone] Business (1) In 3 days 04/07/2023 Comments: Return to the emergency room if your pain gets worse or any new symptoms DIAGNOSIS: 1:Contusion of right foot Normal [facility] ED Note-Physicianon 04-04-20 ED Note-Physician Basic Information Time Seen: Tim Knight M.D. 04/04/2023 12:25 Chief Complaint Patient to er with right 4th and 5th toe pain, since yesterday. Patient stubbed toes on water slide. Patient ambulatory in triage, rates pain 11/07. Patient took ibuprofen at 0630 today. History of Present Illness The patient is a 22-year-old female who presented to the emergency room with right fourth and fifth toe pain. 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 The patient thinks her toes are broken. She is complaining of pain on the right fourth and fifth toe. She states she took ibuprofen this morning. The patient denies any other associated symptoms or any other complaints. Review of Systems Additional ROS info: Except as noted in the above Review of Systems and in the History of Present Illness all other systems have been reviewed and are negative or noncontributory. Physical Exam Vitals & Measurements T: 36.7 ?C(Oral) HR: 89(Peripheral) RR: 16 BP: 145/75 SpO2: 98% HT: 165 cm WT: 97.8 kg BMI: 35.92 General: alert, no acute distress Skin: warm, dry Head: no trauma, normocephalic Neck: Trachea midline Eye: normal conjunctiva, sclera clear Cardiovascular: regular rate and rhythm Respiratory: Lungs CTA, respirations non labored, breath sounds equal Extremities: no deformity, there is mild ecchymosis on the right fifth toe. There is mild to moderate tenderness on the fourth and the fifth toe. Neurological: Alert and oriented, speech normal, no focal neuro deficits Psychiatric: cooperative, affect appropriate for age, Medical Decision Making MEDICAL DECISION MAKING Number and Complexity of Problems Differential Diagnosis: [] [facility] Data External documents reviewed: [] My EKG interpretation: [] My CT interpretation: [] My X-ray interpretation: [] My Ultrasound interpretation: [] Decision rules/scores evaluated: [] Discussed with: [] Treatment and Disposition ED Course: The patient presented with right foot injury. She does not want to claim it is Workmen's Comp. The x-ray shows no fracture no dislocation. The fourth and the fifth toes were kay taped. Postop shoe was given. Patient was given ibuprofen in the emergency room. We will discharge patient home follow-up with primary care. She is instructed to return to the emergency room if her pain gets worse or any new symptoms. Shared decision making: [] Code status: [] Assessment/Plan 1. Contusion of right foot (S90.31XA: Contusion of right foot, initial encounter) Orders: ibuprofen, 600 mg = 1 tab(s), Tab, Oral, Once, Stop date 04/04/23 12:42:00 EST, STAT, Start date 04/04/23 12:42:00 EST, 04/04/23 12:42:00 EST Post-op Shoe XR Foot 3+ Views Right Medications Administered Given ibuprofen 600 mg Tab, 600 mg, Oral Disposition Plan Patient Discharge Condition Stable Discharge Disposition Discharged home Discharge Prescription List Prescriptions No active prescription medications Follow-up With When Contact Information Nicholas Gubimal In 3 days 04/07/[address] [address]- [phone] Business (1) Additional Instructions: Return to the emergency room if your pain gets worse or any new symptoms Patient Education How to Use a Cast Shoe Foot Contusion Problem List/Past Medical History Ongoing No qualifying data Historical Migraine Medications Inpatient No active inpatient medications Home Naprosyn 500 mg Tab, 500 mg= 1 tab(s), Oral, BID naproxen 500 mg Tab, 500 mg= 1 tab(s), Oral, BID Mirza-Synephrine 12 Hour Extra Moisturizing 0.05% nasal spray, 2 spray(s), Nasal, BID Allergies Latex (Swelling) Social History Alcohol - Denies Alcohol Use, 10/22/2022 Substance Abuse - Denies Substance Abuse, 10/22/2022 Tobacco - Denies Tobacco Use, 10/22/2022 Lab Results No qualifying data available. Diagnostic Results XR Foot 3+ Views Right * Preliminary * 04/04/23 13:37:06 : No fracture, dislocation or other acute abnormality Read By: Tim Knight M.D. [facility] Comment on above: Result Comment: Elec tronically Signed By: Tim Knight M.D.\.br\Date and Time Signed: 04/04/23 13:41 EST ED Patient Education Noteon 04-04-2023 ED Patient Education Note Orthopedics How to Use a Cast Shoe A cast shoe is a stiff shoe that is worn over a cast. You may need to wear a cast shoe after a foot or leg injury. It helps you walk, and it keeps the cast clean and dry. Your health care provider may give you a cast shoe after you are allowed to use your injured foot or leg to support (bear) your weight. Cast shoes are made of various materials. They usually have a flat, firm, cushioned bottom. What are the risks? A cast shoe that is not worn properly can lead to cast damage. To protect the cast: ? Properly position and adjust the shoe to support the cast. ? Bear weight on the cast shoe only as told by your health care provider. How to use a cast shoe ? Wear the cast shoe as told by your health care provider. ? Follow the embossing machine operator helper's instructions for use. ? Tighten and properly adjust the cast shoe so it is secure on your foot. ? Do not wear the cast shoe while you are resting at home or sleeping. ? Keep the cast shoe clean and dry. ? Do not wear any other kind of footwear until your health care provider says that you can. How to care for your cast shoe ? Use mild soap and water to clean your cast shoe. ? Make sure your cast shoe is completely clean and dry before you put it over your cast. Contact a health care provider if: ? Your cast gets wet or damaged. ? You have foot pain when you wear the cast shoe. ? You have foot pain when you move. ? Your foot pain is getting worse or the pain is not getting better over time. Summary ? A cast shoe is a rigid shoe that you wear over a cast. ? A cast shoe helps you walk, and it keeps your cast clean and dry. ? A cast shoe that is not worn properly can lead to cast damage. This information is not intended to replace advice given to you by your health care provider. Make sure you discuss any questions you have with your health care provider. Document Revised: 03/10/2021 Document Reviewed: 03/10/2021 [employer] Patient Education ? 2022 [employer] Foot Contusion A foot contusion is a deep bruise to the foot. Contusions are the result of an injury to tissues and muscle fibers under the skin. The injury causes bleeding under the skin. The skin over the contusion may turn blue, purple, or yellow. Minor injuries will cause a painless contusion, but more severe contusions may stay painful and swollen for a few weeks. What are the causes? This condition is usually caused by a hard hit or direct force to your foot, such as having a heavy object fall on your foot. What are the signs or symptoms? Symptoms of this condition include: ? Swelling of the foot. ? Pain and tenderness of the foot. ? Discoloration of the foot. The area may have redness and then turn blue, purple, or yellow. How is this diagnosed? This condition may be diagnosed based on: ? Your medical history. ? A physical exam. In some cases, imaging tests may be done to check for other injuries. These may include: ? An X-ray to check for broken bones (fractures). ? CT scan or MRI to check for torn or injured ligaments. How is this treated? In general, the best treatment for a foot contusion is rest, ice, pressure (compression), and elevation. This is often called RICE therapy. An elastic wrap may be recommended to support your foot. Gkun-vhr-bqolqmy anti-inflammatory medicines may also be recommended for pain control. If your swelling or pain is severe, you may be given crutches. Follow these instructions at home: RICE therapy ? Rest the injured area. Try to avoid standing or walking while your foot is painful. ? If directed, put ice on the injured area. ? Put ice in a plastic bag. ? Place a towel between your skin and the bag. ? Leave the ice on for 20 minutes, 2?3 times a day. ? If directed, apply light compression to the injured area using an elastic wrap. Make sure the wrap is not too tight. Remove and reapply the wrap as told by your health care provider. If your toes become numb, cold, or blue, take the wrap off and reapply it more loosely. ? Raise (elevate) the injured area above the level of your heart while you are sitting or lying down. General instructions ? Take kxyo-xfr-kwvjemo and prescription medicines only as told by your health care provider. ? Use crutches as told by your health care provider, if this applies. Do not use the injured foot to support your body weight until your health care provider says that you can. ? Do not use any products that contain nicotine or tobacco, such as cigarettes, e-cigarettes, and chewing tobacco. These can delay healing. If you need help quitting, ask your health care provider. ? Keep all follow-up visits as told by your health care provider. This is important. Contact a health care provider if: ? Your symptoms do not improve after several days of treatment. ? You have redness, swelling, or sam (more content not included)... [facility] ED Patient Summaryon 023 ED Patient Summary [place] [id number] Patient Discharge Instructions Person Information Name: OSMAN COHEN Age: 22 Years Arrival Date: 04/04/2023 12:12:07 Discharge Diagnosis: 1:Contusion of right foot Primary Care Physician: NONE, XXXX Provider Information Primary Provider: Tim Knight M.D. Advanced Brand Lead:None The exam and treatment you received in the Emergency Department were for an urgent problem and are not intended as complete care. It is important that you follow up with a doctor, nurse practitioner, or physician?s administrative assistant for ongoing care. If your symptoms become worse or you do not improve as expected and you are unable to reach your usual health care provider, you should return to the Emergency Department. We are available 24 hours a day. OSMAN COHNE has been given the following list of patient education materials, prescriptions and follow-up instructions: Follow-up Instructions: With: Address: When: Nicholas Huerta [address] [place], [place] [phone] Business (1) In 3 days 04/07/2023 Comments: Return to the emergency room if your pain gets worse or any new symptoms In the event that this physician does not participate in your insurance network, please consult with your insurance company to find a nearby participating provider. Patient Education Materials: How to Use a Cast Shoe; Foot Contusion A MESSAGE TO ALL PATIENTS REGARDING OPIOIDS PRESCRIPTION OPIOIDS: WHAT YOU NEED TO KNOW Prescription opioids can be used to help relieve nrhcvmhe-rv-ilmvjb pain and are often prescribed following a surgery or injury, or for certain health conditions. These medications can be an important part of the treatment but also come with serious risks. It is important to work with your healthcare provider to make sure you are getting the safest, most effective care. WHAT ARE THE RISKS AND SIDE EFFECTS OF OPIOID USE? Prescription opioids carry serious risks of addiction and overdose, especially with prolonged use. An opioid overdose, often marked by slowed breathing, can cause sudden . The use of prescription opioids can have a number of side effects as well, even when taken as directed: ? Tolerance?meaning you might need to take more of the medication for the same pain relief ? Physical dependence?meaning you have symptoms of withdrawal when a medication is stopped ? Increased sensitivity to pain ? Constipation ? Nausea, vomiting, and dry mouth ? Sleepiness and dizziness ? Confusion ? Depression ? Low levels of testosterone that can result in lower sex drive, energy, and strength ? Itching and sweating RISKS ARE GREATER WITH: ? History of drug misuse, substance use disorder, or overdose ? Mental health conditions (such as depression or anxiety) ? Sleep apnea ? Older age (65 years and older) ? Avoid alcohol while taking prescription opioids. Also, unless specifically advised by your health care provider, medications to avoid include: ? Benzodiazepines (such as Xanax or Valium) ? Muscle relaxants (such as Soma or Flexeril) ? Hypnotics (such as Ambien or Lunesta) ? Other prescription opioids KNOW YOUR OPTIONS Talk to your health care provider about ways to manage your pain that don?t involve prescription opioids. Some of these options may actually work better and have fewer risks and side effects. Options may include: ? Pain relievers such as acetaminophen, ibuprofen, and naproxen ? Some medication that are also used for depression or seizures ? Physical therapy and exercise ? Cognitive behavioral therapy, a psychological, goal-directed approach, in which patients learn how to modify physical, behavioral, and emotional triggers of pain and stress. IF YOU ARE PRESCRIBED OPIOIDS FOR PAIN: ? Never take opioids in greater amounts or more often than prescribed. ? Follow up with your primary health care provider. o Work together to create a plan on how to manage your pain. o Talk about ways to help manage your pain that don?t involve prescription opioids. o Talk about any and all concerns and side effects. ? Help prevent misuse and abuse o Never sell or share prescription opioids. o Never use another person?s prescription opioids. ? Store prescription opioids in a secure place and out of reach of others (this may include visitors, children, friends, and family). ? Safely dispose of unused prescription opioids: Find your community drug take-back program or your pharmacy mail-back program, or flush them down the toilet, following guidance from the Food and Drug Administration (www.fda.gov/Drugs/ ResourcesForYou). ? Visit www.cdc.gov/drugove rdose to learn about the risks of opioids abuse and overdose. ? If you believe you may be struggling with addiction, tell your health care transitions manager and ask for guidance o (more content not included)... [facility] XR Foot 3+ Views Righton XR Foot 3+ Views Right Exam Date/Time: 04/04/2023 13:19 EST Reason for Exam: Pain, Traumatic Report IMPRESSION: NEGATIVE RIGHT FOOT. CLINICAL HISTORY: Pain, Traumatic COMPARISON: None available. FINDINGS: X-rays of the right foot demonstrate no evidence of a fracture, dislocation, bone or joint abnormality. Ordering Provider: Tim Knight FINAL REPORT Dictated: 04/04/2023 1:45 pm Clayton Cantrell MD, V. Signed (Electronic Signature): 04/04/2023 1:45 pm Signed by: Clayton Cantrell MD, V. Transcribed by: LO Technologist: SOCRATES Technical Comments Radiation Dose: Ka,r in mGy = na DAP = na [facility] CT Head or Brain w/o Contras ton 01-29-2023 CT Head or Brain w/o Contrast Exam Date/Time: 01/29/2023 13:40 EDT Reason for Exam: Headache, sudden, severe;Other (please specify) Report IMPRESSION: No acute intracranial process. EXAMINATION: CT Head or Brain w/o Contrast HISTORY: Headache, sudden, severe. Intermittent migraine for one week. TECHNIQUE: Serial axial images without IV contrast were obtained from the vertex to the foramen magnum, with sagittal and coronal reconstructions. All CT scans at this facility use dose modulation, iterative reconstruction, and/or weight based dosing when appropriate to reduce radiation dose to as low as reasonably achievable. COMPARISON: None. RESULT: Acute change: No evidence of an acute intracranial process. Hemorrhage: No evidence of acute intracranial hemorrhage. Mass Lesion / Mass Effect: There is no evidence of an intracranial mass or extraaxial fluid collection. No significant mass effect. Chronic change: None apparent. Parenchyma: There is no significant volume loss. Ventricles: The ventricles are within normal limits of size and configuration for age. Paranasal sinuses and skull base: The visualized paranasal sinuses are grossly clear. Mastoid air cells clear. The skull base is unremarkable. Soft tissues unremarkable. Report Ordering Provider: Tim Knight FINAL REPORT Dictated: 01/29/2023 1:46 pm Naveen Boss MD Signed (Electronic Signature): 01/29/2023 1:46 pm Signed by: Naveen Boss MD Transcribed by: LO Technologist: PERLITA [facility] Consent for Treatmenton Consent for Treatment [id number] EA#[id number]:127 [facility] Discharge Instructionson Discharge Instructions [id number]:127 [facility] ED Clinical Summaryon 2022 ED Clinical Summary [place] [id number] ED Clinical Summary Person Information Name: OSMAN COHEN/[facility] Age: 22 Years : 2000 Sex: Female Language: Georgian PCP: NONE, XXXX Marital Status: Single Visit Id: Visit Reason: Medical screening exam; Headache; HEADACHE Speciality: Acuity: 4 Enc Type: Emergency Med Service: Emergency Arrival: 01/29/2023 12:40:42 Discharge: 01/29/2023 15:01:59 LOS: 000 02:21 Checkin: 01/29/2023 12:40:42 Checkout: 01/29/2023 15:01:59 Dispo Type: Home (Routine DC) EVENTS: Event Name Event Status Request Date/Time Start Date/Time Complete Date/Time Arrive Complete 01/29/2023 12:40:42 01/29/2023 12:40:42 01/29/2023 12:40:42 Document Home Meds Request 01/29/2023 12:40:42 Triage Complete 01/29/2023 12:40:42 01/29/2023 12:50:22 01/29/2023 12:50:22 Registration Complete 01/29/2023 12:44:26 01/29/2023 12:44:26 01/29/2023 12:44:26 Reg Complete Request 01/29/2023 12:44:26 Reg Bed Request Complete 01/29/2023 12:44:26 01/29/2023 12:44:26 01/29/2023 12:44:26 Bed Assign Complete 01/29/2023 12:50:56 01/29/2023 12:50:56 01/29/2023 12:50:56 Dr Exam Complete 01/29/2023 12:50:56 01/29/2023 12:58:03 01/29/2023 12:58:03 RN Exam Complete 01/29/2023 12:50:56 01/29/2023 12:59:10 01/29/2023 12:59:10 Registration Request 01/29/2023 12:58:03 Meds Admin Complete 01/29/2023 13:10:54 01/29/2023 13:26:22 CT Complete 01/29/2023 13:10:54 01/29/2023 13:19:02 01/29/2023 13:40:16 Discharge Complete 01/29/2023 14:55:13 01/29/2023 15:02:03 01/29/2023 15:02:03 Transfer Complete 01/29/2023 15:02:03 01/29/2023 15:02:03 01/29/2023 15:02:03 AD[address]: [place] [place] [id number] [facility] DOC NOTES: MEDICAL INFORMATION: Prescriptions Given: Medications to Continue with No Changes Other Medications naproxen (Naprosyn 500 mg Tab) 1 Tablets By Mouth 2 times a day. Refills: 0. naproxen (naproxen 500 mg Tab) 1 Tablets By Mouth 2 times a day. Take one tab by mouth two times a day. Refills: 0. oxymetazoline nasal (Mirza-Synephrine 12 Hour Extra Moisturizing 0.05% nasal spray) 2 Sprays Nasal Inhalation 2 times a day. Refills: 0. PATIENT EDUCATION INFORMATION: Instructions: General Headache Without Cause Follow up: With: Address: When: [address], [place] [place] [address] In 3 days 02/01/2023 Comments: Return to the emergency room if your headache recurs or any new symptoms. DIAGNOSIS: 1:Headache [facility] ED Note-Physicianon 01-30-20 ED Note-Physician Basic Information Time Seen: Tim Knight M.D. 01/29/2023 12:58 Chief Complaint Patient states headache since wednesday. patient states it fades like heaviness but it doesnt cause me pain . Patient states prescibed migraine medication but refuses to take it. History of Present Illness The patient is a 22-year-old female past medical history of migraine headache, who presented to the emergency room with headache. The patient describes the headache as pressure/throbbing. The patient states she has had this headache for about a week. She states she takes Tylenol or ibuprofen that dulls the headache but then the headache comes back. The patient states after the headache has relieved she still has this heaviness on her head. The patient denies any nausea, denies any vomiting. She denies any fever, denies any chills. Denies any sore throat. The patient states this headache is different than her previous headaches. She states she normally is able to get rid of her headache ,however this headache has going on for the past 1 week. She states after the Tylenol has gotten the headache better the headache starts gradually to get worse again. The patient denies the light and the noise bothering her. She denies any other associated symptoms Review of Systems Additional ROS info: Except as noted in the above Review of Systems and in the History of Present Illness all other systems have been reviewed and are negative or noncontributory. Physical Exam Vitals & Measurements T: 36.8 ?C(Oral) HR: 70(Peripheral) RR: 18 BP: 127/80 SpO2: 98% HT: 165 cm WT: 97.8 kg BMI: 35.92 General: alert, no acute distress Skin: warm, dry Head: no trauma, normocephalic Neck: Trachea midline, no tenderness, supple, no meningeal signs Eye: normal conjunctiva, sclera clear, PERRL, EOMI, vision unchanged ENMT: Oral mucosa moist, no pharyngeal erythema or exudate Cardiovascular: regular rate and rhythm Respiratory: Lungs CTA, respirations non labored, breath sounds equal Gastrointestinal: soft, non distended, no tenderness, no guarding Extremities: no deformity, no trauma Neurological: Alert and oriented, CN II-XII intact, motor strength equal & normal bilaterally, sensation equal & normal bilaterally, speech normal, no focal neuro deficits, normal coordination Psychiatric: cooperative, affect appropriate for age, Medical Decision Making MEDICAL DECISION MAKING Number and Complexity of Problems Differential Diagnosis: [] [facility] Data External documents reviewed: [] My EKG interpretation: [] My CT interpretation: [] My X-ray interpretation: [] My Ultrasound interpretation: [] Decision rules/scores evaluated: [] Discussed with: [] Treatment and Disposition ED Course: Patient presented with a headache. She states this is different than her migraine headaches. Her headache is lasted for about a week. There is no focal neurological deficit. CT of the brain shows no acute intracranial process. The patient was given cocktail for migraine headache and her headache completely resolved. The patient felt better. We will discharge patient home follow-up with primary care. She is instructed to return to the emergency room if her headache recurs or any new symptoms. Shared decision making: [] Code status: [] Assessment/Plan 1. Headache (R51.9: Headache, unspecified) Orders: ketorolac, 30 mg = 1 mL, Injection, IV Push, Once, Stop date 01/29/23 13:10:00 EDT, STAT, Start date 01/29/23 13:10:00 EDT, 01/29/23 13:10:00 EDT methylPREDNISolone, 125 mg = 2 mL, Injection, IV Push, Once, Stop date 01/29/23 13:10:00 EDT, STAT, Start date 01/29/23 13:10:00 EDT, 01/29/23 13:10:00 EDT metoclopramide, 10 mg = 2 mL, Injection, IV Push, Once, Stop date 01/29/23 13:10:00 EDT, STAT, Start date 01/29/23 13:10:00 EDT, 01/29/23 13:10:00 EDT Sodium Chloride 0.9% intravenous solution, 1,000 mL, Soln-IV, IV, Once, Stop date 01/29/23 13:10:00 EDT, STAT, Start date 01/29/23 13:10:00 EDT, Infuse over 61, minute(s) CT Head or Brain w/o Contrast Medications Administered Given ketorolac 30 mg/mL Inj 1 mL, 30 mg, IV Push methylPREDNISolone 125 mg preservative-free injection (SOLU-MEDROL), 125 mg, IV Push metoclopramide 5 mg/mL Inj, 10 mg, IV Push NS 1000 ml Bolus, 1000 mL, IV Disposition Plan Patient Discharge Condition Stable, improved Discharge Disposition Discharged home Discharge Prescription List Prescriptions No active prescription medications Follow-up With When Contact Information Jarett Post In 3 days 02/01/2023 EDT [address] [place] [id number] Additional Instructions: Return to the emergency room if your headache recurs or any new symptoms. Patient Education General Headache Without Cause Problem List/Past Medical History Ongoing No qualifying data Historical Migraine Medications Inpatient No active inpatient medications Home Naprosyn 500 mg Tab, 500 mg= 1 tab(s), Or (more content not included)... [facility] Comment on above: Result Comment: Elec tronically Signed By: Antonia Singh, Tim Feng\.laura\Date and Time Signed: 01/29/23 18:16 EDT ED Patient Education Noteon 01-29-2023 ED Patient Education Note Neurology General Headache Without Cause A headache is pain or discomfort felt around the head or neck area. There are many causes and types of headaches. A few common types include: ? Tension headaches. ? Migraine headaches. ? Cluster headaches. ? Chronic daily headaches. Sometimes, the specific cause of a headache may not be found. Follow these instructions at home: Watch your condition for any changes. Let your health care provider know about them. Take these steps to help with your condition: Managing pain ? Take gesh-yzo-lrrmqve and prescription medicines only as told by your health care provider. Treatment may include medicines for pain that are taken by mouth or applied to the skin. ? Lie down in a dark, quiet room when you have a headache. ? Keep lights dim if bright lights bother you or make your headaches worse. ? If directed, put ice on your head and neck area: ? Put ice in a plastic bag. ? Place a towel between your skin and the bag. ? Leave the ice on for 20 minutes, 2?3 times per day. ? Remove the ice if your skin turns bright red. This is very important. If you cannot feel pain, heat, or cold, you have a greater risk of damage to the area. ? If directed, apply heat to the affected area. Use the heat source that your health care provider recommends, such as a moist heat pack or a heating pad. ? Place a towel between your skin and the heat source. ? Leave the heat on for 20?30 minutes. ? Remove the heat if your skin turns bright red. This is especially important if you are unable to feel pain, heat, or cold. You have a greater risk of getting burned. Eating and drinking ? Eat meals on a regular schedule. ? If you drink alcohol: ? Limit how much you have to: ? 0?1 drink a day for women who are not . ? 0?2 drinks a day for men. ? Know how much alcohol is in a drink. In the [place] one drink equals one 12 oz bottle of beer (355 mL), one 5 oz glass of wine (148 mL), or one 1? oz glass of hard liquor (44 mL). ? Stop drinking caffeine, or decrease the amount of caffeine you drink. ? Drink enough fluid to keep your urine pale yellow. General instructions ? Keep a headache journal to help find out what may trigger your headaches. For example, write down: ? What you eat and drink. ? How much sleep you get. ? Any change to your diet or medicines. ? Try massage or other relaxation techniques. ? Limit stress. ? Sit up straight, and do not tense your muscles. ? Do not use any products that contain nicotine or tobacco. These products include cigarettes, chewing tobacco, and vaping devices, such as e-cigarettes. If you need help quitting, ask your health care provider. ? Exercise regularly as told by your health care provider. ? Sleep on a regular schedule. Get 7?9 hours of sleep each night, or the amount recommended by your health care provider. ? Keep all follow-up visits. This is important. Contact a health care provider if: ? Medicine does not help your symptoms. ? You have a headache that is different from your usual headache. ? You have nausea or you vomit. ? You have a fever. Get help right away if: ? Your headache: ? Becomes severe quickly. ? Gets worse after moderate to intense physical activity. ? You have any of these symptoms: ? Repeated vomiting. ? Pain or stiffness in your neck. ? Changes to your vision. ? Pain in an eye or ear. ? Problems with speech. ? Muscular weakness or loss of muscle control. ? Loss of balance or coordination. ? You feel faint or pass out. ? You have confusion. ? You have a seizure. These symptoms may represent a serious problem that is an emergency. Do not wait to see if the symptoms will go away. Get medical help right away. Call your local emergency services (911 in the [place] Do not drive yourself to the hospital. Summary ? A headache is pain or discomfort felt around the head or neck area. ? There are many causes and types of headaches. In some cases, the cause may not be found. ? Keep a headache journal to help find out what may trigger your headaches. Watch your condition for any changes. Let your health care provider know about them. ? Contact a health care provider if you have a headache that is different from the usual headache, or if your symptoms are not helped by medicine. ? Get help right away if your headache becomes severe, you vomit, you have a loss of vision, you lose your balance, or you have a seizure. This information is not intended to replace advice given to you by your health care provider. Make sure you discuss any questions you have with your health care provider. Document Revised: 10/15/2021 Document Reviewed: 10/15/2021 Elsevier Patient Education ? 2022 [employer] [facility] ED Patient Summaryon 023 ED Patient Summary [address] [address] Patient Discharge Instructions Person Information Name: OSMAN COHEN Age: 22 Years Arrival Date: 01/29/2023 12:40:42 Discharge Diagnosis: 1:Headache Primary Care Physician: NONE, XXXX Provider Information Primary Provider: Tim Knight M.D. Advanced Brand Lead:None The exam and treatment you received in the Emergency Department were for an urgent problem and are not intended as complete care. It is important that you follow up with a doctor, nurse practitioner, or physician?s administrative assistant for ongoing care. If your symptoms become worse or you do not improve as expected and you are unable to reach your usual health care provider, you should return to the Emergency Department. We are available 24 hours a day. OSMAN COHEN has been given the following list of patient education materials, prescriptions and follow-up instructions: Follow-up Instructions: With: Address: When: [address] [facility], [place] [address] In 3 days 02/01/2023 Comments: Return to the emergency room if your headache recurs or any new symptoms. In the event that this physician does not participate in your insurance network, please consult with your insurance company to find a nearby participating provider. Patient Education Materials: General Headache Without Cause A MESSAGE TO ALL PATIENTS REGARDING OPIOIDS PRESCRIPTION OPIOIDS: WHAT YOU NEED TO KNOW Prescription opioids can be used to help relieve kfqtwmbn-qv-skjmbt pain and are often prescribed following a surgery or injury, or for certain health conditions. These medications can be an important part of the treatment but also come with serious risks. It is important to work with your healthcare provider to make sure you are getting the safest, most effective care. WHAT ARE THE RISKS AND SIDE EFFECTS OF OPIOID USE? Prescription opioids carry serious risks of addiction and overdose, especially with prolonged use. An opioid overdose, often marked by slowed breathing, can cause sudden . The use of prescription opioids can have a number of side effects as well, even when taken as directed: ? Tolerance?meaning you might need to take more of the medication for the same pain relief ? Physical dependence?meaning you have symptoms of withdrawal when a medication is stopped ? Increased sensitivity to pain ? Constipation ? Nausea, vomiting, and dry mouth ? Sleepiness and dizziness ? Confusion ? Depression ? Low levels of testosterone that can result in lower sex drive, energy, and strength ? Itching and sweating RISKS ARE GREATER WITH: ? History of drug misuse, substance use disorder, or overdose ? Mental health conditions (such as depression or anxiety) ? Sleep apnea ? Older age (65 years and older) ? Avoid alcohol while taking prescription opioids. Also, unless specifically advised by your health care provider, medications to avoid include: ? Benzodiazepines (such as Xanax or Valium) ? Muscle relaxants (such as Soma or Flexeril) ? Hypnotics (such as Ambien or Lunesta) ? Other prescription opioids KNOW YOUR OPTIONS Talk to your health care provider about ways to manage your pain that don?t involve prescription opioids. Some of these options may actually work better and have fewer risks and side effects. Options may include: ? Pain relievers such as acetaminophen, ibuprofen, and naproxen ? Some medication that are also used for depression or seizures ? Physical therapy and exercise ? Cognitive behavioral therapy, a psychological, goal-directed approach, in which patients learn how to modify physical, behavioral, and emotional triggers of pain and stress. IF YOU ARE PRESCRIBED OPIOIDS FOR PAIN: ? Never take opioids in greater amounts or more often than prescribed. ? Follow up with your primary health care provider. o Work together to create a plan on how to manage your pain. o Talk about ways to help manage your pain that don?t involve prescription opioids. o Talk about any and all concerns and side effects. ? Help prevent misuse and abuse o Never sell or share prescription opioids. o Never use another person?s prescription opioids. ? Store prescription opioids in a secure place and out of reach of others (this may include visitors, children, friends, and family). ? Safely dispose of unused prescription opioids: Find your community drug take-back program or your pharmacy mail-back program, or flush them down the toilet, following guidance from the Food and Drug Administration (www.fda.gov/Drugs/ ResourcesForYou). ? Visit www.cdc.gov/drugove rdose to learn about the risks of opioids abuse and overdose. ? If you believe you may be struggling with addiction, tell your health care transitions manager and ask for guidance or call SAMHSA?S National Helpline at 1-8 (more content not included)... Normal [facility] Prescriptions/Work Noteson 0 01-29-2023 Prescriptions/Work Notes [id number]#1.00CD:127 Normal [facility] Auto Diffon 01-16-2023 Basophils/100 WBC (Bld) 0.4 % Normal 0.0-2.0 F [facility] Comment on above: Order Comment: Order Added by Discern Expert. Performed By: #### 1 [id number], 8712695, 9623956, 97828507, 5102525, 67610303 #### [facility] Laboratory [address] [place] [address] 87753 Basophils/Leukocytes Auto (Bld) [Pure # fraction] 0.0 E9/L Normal 0.0-0.2 [facility] Comment on above: Order Comment: Order Added by Discern Expert. Performed By: #### 1 1721007, 9214962, 6754130, 84688487, 9742321, 47385766 #### [facility] [address] [place] [address] 17153 Eosinophils/100 WBC (Bld) 1.1 % Normal 0.0-8.0 [facility] Comment on above: Order Comment: Order Added by Discern Expert. Performed By: #### 1 9674172, 5708842, 3115175, 54594779, 9779438, 03185822 #### [facility] [address] [place] [address] 59273 Eosinophils/Leukocytes Auto (Bld) [Pure # fraction] 0.1 E9/L Normal 0.0-0.5 [facility] Comment on above: Order Comment: Order Added by Discern Expert. Performed By: #### 1 6366237, 8110802, 2922311, 30604884, 0499806, 65901052 #### [facility] [address] [place] [address] 34005 Lymphocytes/100 WBC (Bld) 35.0 % Normal 14.0-50.0 [facility] Comment on above: Order Comment: Order Added by Discern Expert. Performed By: #### 1 0412287, 1502428, 1511248, 08717287, 6515671, 48230563 #### [facility] [address] [place] [address] 62554 Lymphocytes/Leukocytes Auto (Bld) [Pure # fraction] 2.7 E9/L Normal 1.0-4.0 [facility] Comment on above: Order Comment: Order Added by Discern Expert. Performed By: #### 1 0690218, 5900135, 2972868, 90649646, 5678987, 01764766 #### [facility] [address] [place] [address] 99098 Monocytes/100 WBC (Bld) 6.5 % Normal 4.0-14.0 [facility] Comment on above: Order Comment: Order Added by Discern Expert. Performed By: #### 1 0982980, 8511592, 3191778, 36732498, 3748182, 01415034 #### [facility] [address] [place] [address] 83082 Monocytes/Leukocytes Auto (Bld) [Pure # fraction] 0.5 E9/L Normal 0.2-1.0 [facility] Comment on above: Order Comment: Order Added by Discern Expert. Performed By: #### 1 6625805, 5464589, 3091871, 66700509, 9559962, 19349179 #### [facility] [address] [place] [address] 70367 Neutrophils/100 WBC (Bld) 57.0 % Normal 36.0-75.0 [facility] Comment on above: Order Comment: Order Added by Discern Expert. Performed By: #### 1 3189537, 5112205, 9825879, 44873258, 9736173, 86022265 #### [facility] [address] [place] [address] 80625 Neutrophils/Leukocytes Auto (Bld) [Pure # fraction] 4.5 E9/L Normal 2.0-7.5 [facility] Comment on above: Order Comment: Order Added by Discern Expert. Performed By: #### 1 3882828, 7466795, 5447316, 36675373, 7510004, 26289704 #### [facility] [address] [place] [address] 42460 B hCG Qualon 08-19-2023 Beta hCG Ql Negative Normal [facility] Comment on above: Performed By: #### 1 6619416, 3557962, 4764930, 88456900, 6650411, 04116391 #### [facility] [address] [place] [address] 30963 CBC w/ Auto Diffon Erythrocyte distribution width (RBC) [Ratio] 13.1 % Normal 10.9-14.2 [facility] Comment on above: Performed By: #### 1 9710672, 8032343, 4312612, 43387709, 2504823, 59284825 #### [facility] [address] [place] [address] 48772 Hematocrit (Bld) [Volume fraction] 38.7 % Normal 34.0-46.0 [facility] Comment on above: Performed By: #### 1 8718463, 1026036, 2149570, 26306085, 8306588, 48725812 #### [facility] [address] [place] [address] 20126 Hemoglobin (Bld) [Mass/Vol] 13.0 g/dL Normal 12.0-16.0 [facility] Comment on above: Performed By: #### 1 2008708, 3781770, 6823035, 43082644, 5226510, 01551184 #### [facility] [address] [place] [address] 18376 MCH (RBC) [Entitic mass] 26.2 pg Low 27.0-34.0 [facility] Comment on above: Performed By: #### 1 4521023, 9681885, 3312003, 67917553, 0267814, 64079965 #### [facility] [address] [place] [address] 65586 MCHC (RBC) [Mass/Vol] 33.7 g/dL Normal 31.4-36.0 [facility] Comment on above: Performed By: #### 1 4044824, 2048575, 1895177, 12350875, 1365756, 61088884 #### [facility] [address] [place] [address] 75607 MCV (RBC) [Entitic vol] 77.7 fL Low 80.0-100.0 F [facility] Comment on above: Performed By: #### 1 5122343, 0274459, 9730077, 92895915, 7026046, 65108383 #### [facility] [address] [place] [address] 91090 Platelet mean volume (Bld) [Entitic vol] 7.0 fL Normal 6.4-10.8 [facility] Comment on above: Performed By: #### 1 2041136, 4624061, 6099972, 40952177, 9581430, 31805662 #### [facility] [address] [place] [address] 08265 Platelets (Bld) [#/Vol] 310.0 E9/L Normal 150.0-500.0 [facility] Comment on above: Performed By: #### 1 7843035, 8829030, 8695272, 42511189, 9656780, 84539298 #### [facility] [address] [place] [address] 09532 RBC (Bld) [#/Vol] 5.0 E12/L Normal 4.3-5.9 [facility] Comment on above: Performed By: #### 1 0515172, 8083157, 8667377, 09915515, 6238577, 31502368 #### [facility] [address] [place] [address] 28026 WBC corrected for nucl RBC Auto (Bld) [#/Vol] 7.8 E9/L Normal 4.0-11.0 [facility] Comment on above: Performed By: #### 1 5698759, 4375784, 5405413, 13595839, 4261363, 03820744 #### [facility] [address] [place] [address] 00245 CHEMISTRYOrdered By: SYSTEM SYSTEM on 01-16-2023 Albumin [Mass/Vol] 3.8 g/dL Normal 3.3 - 5.0 gm/dL [facility] Albumin/Globulin [Mass ratio] 1.2 {ratio} Normal 1.1 - 2.2 [facility] ALP [Catalytic activity/Vol] 72 [iU]/d Normal 21 - 98 Int._Unit/L [facility] ALT No additional P-5'-P [Catalytic activity/Vol] 19 [iU]/d Normal 6 - 46 Int._Unit/L [facility] Anion gap [Moles/Vol] 8 mmol/L Normal 6 - 16 mEq/L [facility] AST [Catalytic activity/Vol] 18 [iU]/d Normal 5 - 43 Int._Unit/L [facility] Bilirubin [Mass/Vol] 0.5 mg/dL Normal 0.0 - 1 .1 mg/dL [facility] Calcium [Mass/Vol] 9.1 mg/dL Normal 8.9 - 11. 1 mg/dL [facility] Chloride [Moles/Vol] 109 mmol/L Normal 101 - 1 11 mmol/L [facility] CO2 [Moles/Vol] 25 mmol/L Normal 21 - 31 mmol/L [facility] Creatinine [Mass/Vol] 0.7 mg/dL Normal 0.5 - 1.3 mg/dL [facility] GFR/1.73 sq M.predicted among non-blacks MDRD (S/P/Bld) [Vol rate/Area] 127 mL/min/1.73 m2 Normal >=59mL/min/ 1.73 m2 [facility] Chem S Globulin (S) [Mass/Vol] 3.3 g/dL Normal 1.4 - 4.0 gm/dL [facility] Glucose [Mass/Vol] 105 mg/dL Normal 55 - 199 mg/dL [facility] Potassium [Moles/Vol] 3.3 mmol/L Low 3.5 - 5.3 mmol/L [facility] Protein [Mass/Vol] 7.1 g/dL Normal 6.0 - 7.8 gm/dL [facility] Sodium [Moles/Vol] 139 mmol/L Normal 135 - 145 mmol/L [facility] Urea nitrogen [Mass/Vol] 9 mg/dL Normal 5 - 21 mg/dL [facility] Urea nitrogen/Creatinine [Mass ratio] 13 mg/mg Normal 10 - 20 [facility] Remisol CMPon 01-16-2023 Albumin [Mass/Vol] 3.8 g/dL Normal 3.3-5.0 [facility] Comment on above: Performed By: #### 1 1862712, 8503448, 9288310, 41526862, 5406434, 93583268 #### [facility] [address] [place] [address] 05104 Albumin/Globulin (S) [Mass conc ratio] 1.2 Normal 1.1-2.2 [facility] Comment on above: Performed By: #### 1 6754692, 6646238, 6628189, 37154537, 7824117, 04617296 #### [facility] [address] [place] [address] 03056 ALP [Catalytic activity/Vol] 72 Int._Unit/L Normal 21-98 [facility] Comment on above: Performed By: #### 1 1408837, 0171883, 8351836, 32615748, 5973341, 87371406 #### [facility] [address] [place] [address] 36215 ALT No additional P-5'-P [Catalytic activity/Vol] 19 Int._Unit/L Normal 6-46 [facility] Comment on above: Performed By: #### 1 7072925, 9585931, 2217658, 35361965, 0066105, 32045903 #### [facility] [address] [place] [address] 04604 AST [Catalytic activity/Vol] 18 Int._Unit/L Normal 5-43 [facility] Comment on above: Performed By: #### 1 9523170, 3015675, 7385506, 75678150, 9098253, 32398355 #### [facility] [address] [place] [address] 35273 Bilirubin [Mass/Vol] 0.5 mg/dL Normal 0.0-1.1 [facility] Comment on above: Performed By: #### 1 9423231, 4867830, 6789250, 14181786, 4970141, 27156528 #### [facility] [address] [place] [address] Creatinine [Mass/Vol] 0.7 mg/dL Normal 0.5-1.3 [facility] Comment on above: Performed By: #### 1 5639256, 8097210, 2194650, 16524937, 7708735, 81565920 #### [facility] [address] [place] [address] Globulin (S) [Mass/Vol] 3.3 g/dL Normal 1.4-4.0 [facility] Comment on above: Performed By: #### 1 9581234, 9987106, 3102322, 69192416, 7831081, 26787604 #### [facility] [address] [place] [address] 63751 Protein [Mass/Vol] 7.1 g/dL Normal 6.0-7.8 [facility] Comment on above: Performed By: #### 1 6019505, 7759089, 8941152, 24836980, 4294392, 33954589 #### [facility] [address] [place] [address] 32904 Urea nitrogen [Mass/Vol] 9 mg/dL Normal 5-21 [facility] Comment on above: Performed By: #### 1 6827340, 1140381, 6260911, 78362526, 2081708, 36105843 #### [facility] [address] [place] [address] 12827 Urea nitrogen/Creatinine [Mass ratio] 13 No Units Normal 10-20 [facility] Comment on above: Performed By: #### 1 2355953, 8644553, 1161423, 21619879, 6898988, 28627088 #### [facility] [address] [place] [address] 77031 Anion gap [Moles/Vol] 8 mmol/L Normal 6-16 [facility] Comment on above: Performed By: #### 1 7361397, 1349450, 1748675, 63695834, 1553030, 66184267 #### [facility] [address] [place] [address] Calcium [Mass/Vol] 9.1 mg/dL Normal 8.9-11.1 [facility] Comment on above: Performed By: #### 1 1677008, 1678503, 3818695, 32510404, 5541068, 27246744 #### [facility] [address] [place] [address] Chloride [Moles/Vol] 109 mmol/L Normal 101-111 [facility] Comment on above: Performed By: #### 1 7255561, 3811283, 2707678, 87062546, 2917155, 64764376 #### [facility] [address] [place] [address] CO2 [Moles/Vol] 25 mmol/L Normal 21-31 [facility] Comment on above: Performed By: #### 1 1359711, 3185853, 2984679, 71048651, 2935561, 16799088 #### [facility] [address] [place] [address] Glucose [Mass/Vol] 105 mg/dL Normal 55-199 [facility] Comment on above: Result Comment: If t his glucose result represents a fasting glucose, interpretation should refer to the following reference range: 55-99 mg/dL Performed By: #### 1 6829550, 6662276, 5109620, 08856377, 1298491, 46427449 #### [facility] [address] [place] [address] Potassium [Moles/Vol] 3.3 mmol/L Low 3.5-5.3 [facility] Comment on above: Performed By: #### 1 8507916, 7498863, 4389876, 52338685, 0580507, 75818817 #### [facility] [address] [place] [address] Sodium [Moles/Vol] 139 mmol/L Normal 135-145 [facility] Comment on above: Performed By: #### 1 9439194, 9607557, 5829862, 90726766, 1421555, 27265972 #### [facility] [address] [place] [address] 08442 COAGULATIONOrdered By: Fred Scott on 01-16-2023 aPTT Coag (PPP) [Time] 31.3 s Normal 25.1 - 36.5 second(s) [facility] Auto Coag INR Coag (PPP) [Relative time] 1.1 {INR} Invalid Interpretation Code [facility] Auto Coag PT Coag (PPP) [Time] 12.0 s Normal 9.4 - 1 2.5 second(s) [facility] Auto Coag Consent for Treatmenton 12-29 Consent for Treatment [id number] F7#1.00CD:127 Normal [facility] Discharge Instructionson Discharge Instructions [id number] 30 [id number] 517#1.00CD:127 Normal [facility] ED Clinical Summaryon 2022 ED Clinical Summary [address] [address] ED Clinical Summary Person Information Name: OSMAN COHEN [facility] Age: 22 Years : 2000 Sex: Female Language: Georgian PCP: MINAL NEWMAN DO Marital Status: Single Visit Id: Visit Reason: Headache; Nose Bleed Reevaluation; HEADACHE/LT HEADED/BLOODY NOSE EARLIER Speciality: Acuity: 4 Enc Type: Emergency Med Service: Emergency Arrival: 01/16/2023 15:34:36 Discharge: 01/16/2023 17:03:43 LOS: 000 01:29 Checkin: 01/16/2023 15:34:36 Checkout: 01/16/2023 17:03:43 Dispo Type: Home (Routine DC) EVENTS: Event Name Event Status Request Date/Time Start Date/Time Complete Date/Time Arrive Complete 01/16/2023 15:34:36 01/16/2023 15:34:36 01/16/2023 15:34:36 Document Home Meds Request 01/16/2023 15:34:36 Triage Complete 01/16/2023 15:34:36 01/16/2023 15:42:36 01/16/2023 15:42:36 Bed Assign Complete 01/16/2023 15:38:59 01/16/2023 15:38:59 01/16/2023 15:38:59 Dr Exam Complete 01/16/2023 15:38:59 01/16/2023 15:42:24 01/16/2023 15:42:24 RN Exam Request 01/16/2023 15:38:59 Registration Complete 01/16/2023 15:42:24 01/16/2023 15:45:35 01/16/2023 15:45:35 Reg Complete Request 01/16/2023 15:45:35 Reg Bed Request Complete 01/16/2023 15:45:35 01/16/2023 15:45:35 01/16/2023 15:45:35 Pending Labs Complete 01/16/2023 15:51:46 01/16/2023 16:42:43 Lab Complete 01/16/2023 15:51:46 01/16/2023 16:41:48 Pending Labs Complete 01/16/2023 16:19:17 01/16/2023 16:19:17 01/16/2023 16:41:48 Lab Complete 01/16/2023 16:19:17 01/16/2023 16:19:17 01/16/2023 16:41:48 Pending Labs Complete 01/16/2023 16:34:58 01/16/2023 16:34:58 01/16/2023 16:35:06 Lab Complete 01/16/2023 16:34:58 01/16/2023 16:34:58 01/16/2023 16:35:06 Discharge Complete 01/16/2023 16:48:54 01/16/2023 17:03:47 01/16/2023 17:03:47 Transfer Complete 01/16/2023 17:03:47 01/16/2023 17:03:47 01/16/2023 17:03:47 ADDRESS: [address] [place] [id number] PHYS DOC NOTES: MEDICAL INFORMATION: Prescriptions Given: New Medications [facility] [id number], [address] [place] [id number], [phone] oxymetazoline nasal (Mirza-Synephrine 12 Hour Extra Moisturizing 0.05% nasal spray) 2 Sprays Nasal Inhalation 2 times a day. Refills: 0. Medications to Continue with No Changes Other Medications naproxen (Naprosyn 500 mg Tab) 1 Tablets By Mouth 2 times a day. Refills: 0. naproxen (naproxen 500 mg Tab) 1 Tablets By Mouth 2 times a day. Take one tab by mouth two times a day. Refills: 0. PATIENT EDUCATION INFORMATION: Instructions: Nosebleed, Adult; Migraine Headache Follow up: With: Address: When: [employer] [address] [place], [place] [id number] Business (1) In 3 days 01/19/2023 With: Address: When: MINAL NEWMAN [address], [address] [place] [address] Business (1) In 3 days DIAGNOSIS: Epistaxis; Migraine Normal [facility] ED Note-Physicianon 01-17-20 ED Note-Physician Basic Information Time Seen: Gus Mcgowan DO 01/16/2023 15:42 Chief Complaint Pt states had a nose bleed today that last about an hour. States felt light headed and fatigued. Now has migraine. History of Present Illness 22 female presents with nosebleed and headache. Patient states that started just prior to arrival. She has longstanding history of migraine headaches states this feels very similar although now at the time she comes to the ER her migraine headache is almost completely resolved. She states that she was at work today she had a spontaneous epistaxis that did resolve after 60 minutes and work sent her home. She just states that she has been feeling off lately. She denies any other sources of bleeding no hemoptysis no black or bloody stools or vomit no heavy periods or other sources of bleeding. Patient denies any chance of stating use of control and recent completion of her menstrual cycle. She is under evaluation of her family physician for her migraine headaches and was recently started on Topamax but she did not like the way that made her feel so this is now out of her system. No other aggravating or relieving factors no other associated symptoms no other prior treatments or complaints. Family: Reviewed and noncontributory Social: lives at home Review of systems negative unless otherwise specified in the HPI. Physical Exam Vitals & Measurements T: 36.8 ?C(Oral) HR: 102(Peripheral) RR: 16 BP: 126/85 SpO2: 99% HT: 164 cm WT: 97.8 kg BMI: 36.36 General: The patient appears well and in no apparent distress. Patient is resting comfortably on cart. Skin: Warm, dry, no pallor noted. Head: Normocephalic, atraumatic Neck: No JVD Eye: PERRLA, EOMI ENT: Moist mucus membranes Cardiovascular: Regular rate normal peripheral perfusion Respiratory: No respiratory distress no accessory muscle use no obvious audible wheezing Chest Wall: no deformity Musculoskeletal: normal ROM, no deformity, no swelling GI: Soft no obvious distention. No rebound or rigidity. No guarding. No tenderness. Neurological: A&O moves all extremities equal strength and symmetry Psychiatric: Cooperative and appropriate Medical Decision Making MEDICAL DECISION MAKING Number and Complexity of Problems Differential Diagnosis: MDM Data External documents reviewed: My EKG interpretation: in chart if applicable My CT interpretation: in chart if applicable My X-ray interpretation: in chart if applicable My Ultrasound interpretation: Decision rules/scores evaluated: Discussed with: Treatment and Disposition ED Course: Laboratory studies reviewed and noted essentially unremarkable. Patient is treated with Mirza-Synephrine for the outpatient setting discharged home. I did offer medication for migraine she stateshe has resolved. She did request referral to primary care physician's was done here she is provided with a note for work and follow-up the outpatient setting return to ER symptoms change or worsen. Shared decision making: Code status: Assessment/Plan Epistaxis (R04.0: Epistaxis) Migraine (G43.909: Migraine, unspecified, not intractable, without status migrainosus) Orders: oxymetazoline nasal, 2 spray(s), Nasal, BID, 15 mL, Refill(s) 0, [facility] [id number], 164, cm, 01/16/23 15:42:00 EDT, Height/Length Dosing, 97.8, kg, 01/16/23 15:42:00 EDT, Weight Dosing Automated Diff Beta hCG Qual CBC w/ Auto Diff Comprehensive Metabolic Panel eGFR PT & PTT Disposition Plan Discharge Prescription List Prescriptions Mirza-Synephrine 12 Hour Extra Moisturizing 0.05% nasal spray, 2 spray(s), Nasal, BID Follow-up With When Contact Information [employer] [facility] In 3 days 01/19/2023 EDT [address] [place] [address]- Business (1) Additional Instructions: MINAL NEWMAN In [address], [address] [place] [address]- Business (1) Additional Instructions: Patient Education Nosebleed, Adult Migraine Headache Problem List/Past Medical History Ongoing No qualifying data Historical Migraine Medications Inpatient No active inpatient medications Home Naprosyn 500 mg Tab, 500 mg= 1 tab(s), Oral, BID naproxen 500 mg Tab, 500 mg= 1 tab(s), Oral, BID Allergies Latex (Swelling) Social History Alcohol - Denies Alcohol Use, 10/22/2022 Substance Abuse - Denies Substance Abuse, 10/22/2022 Tobacco - Denies Tobacco Use, 10/22/2022 Lab Results WBC: 7.8 E9/L (01/16/23 15:58:00) RBC: 5 E12/L (01/16/23 15:58:00) HGB: 13 gm/dL (01/16/23 15:58:00) Hct: 38.7 % (01/16/23 15:58:00) MCV: 77.7 fL Low (01/16/23 15:58:00) MCH: 26.2 pg Low (01/16/23 15:58:00) MCHC: 33.7 gm/dL (01/16/23 15:58:00) RDW: 13.1 % (01/16/23 15:58:00) Platelet: 310 E9/L (01/16/23 15:58:00) MPV: 7 fL (01/16/23 15:58:00) Neutro Auto: 57 % (01/16/23 15:58:00) Lymph Auto: 35 % (01/16/23 15:58:00) [place] Auto: 6.5 % (01/16/23 15:58:00) Eos Auto: 1.1 % (01/16/23 (more content not included)... Normal [facility] Comment on above: Result Comment: Elec trofloresally Signed By: Gus Mcgowan DO\.br\Date and Time Signed: 01/16/23 16:56 EDT ED Patient Education Noteon 01-16-2023 ED Patient Education Note ENT Nosebleed, Adult A nosebleed is when blood comes out of the nose. Nosebleeds are common. Usually, they are not a sign of a serious condition. Nosebleeds can happen if a blood vessel in your nose starts to bleed or if the lining of your nose (mucous membrane) cracks. They are commonly caused by: ? Allergies. ? Colds. ? Picking your nose. ? Blowing your nose too hard. ? An injury from sticking an object into your nose or getting hit in the nose. ? Dry or cold air. Less common causes of nosebleeds include: ? Toxic fumes. ? Something abnormal in the nose or in the air-filled spaces in the bones of the face (sinuses). ? Growths in the nose, such as polyps. ? Blood thinners or conditions that cause blood to clot slowly. ? Certain illnesses or procedures that irritate or dry out the nasal passages. Follow these instructions at home: When you have a nosebleed: ? Sit down and tilt your head slightly forward. ? Use a clean towel or tissue to pinch your nostrils under the bony part of your nose. After 5 minutes, let go of your nose and see if bleeding starts again. Do not release pressure before that time. If there is still bleeding, repeat the pinching and holding for 5 minutes or until the bleeding stops. ? Do not place tissues or gauze in the nose to stop the bleeding. ? Avoid lying down and avoid tilting your head backward. That may make blood collect in the throat and cause gagging or coughing. ? Use a nasal spray decongestant to help with a nosebleed as told by your health care provider. After a nosebleed: ? Avoid blowing your nose or sniffing for a number of hours. ? Avoid straining, lifting, or bending at the waist for several days. You may go back to other normal activities as you are able. ? If you are taking aspirin or blood thinners and you have nosebleeds, talk to your health care provider. These medicines make bleeding more likely. ? Ask your health care provider if you should stop taking the medicines or if you should adjust the dose. ? Do not stop taking medicines that your health care provider has recommended unless he or she tells you to stop taking them. ? If your nosebleed was caused by dry mucous membranes, use azvw-ncw-ldosjws saline nasal spray or gel and a humidifier as told by your health care provider. This will keep the mucous membranes moist and allow them to heal. If you need to use one of these products: ? Choose one that is water-soluble. ? Use only as much as you need and use it only as often as needed. ? Do not lie down right after you use it. ? If you get nosebleeds often, talk with your health care provider about medical treatments. Options may include: ? Nasal cautery. This treatment stops and prevents nosebleeds by using a chemical swab or electrical device to lightly burn tiny blood vessels inside the nose. ? Nasal packing. A gauze or other material is placed in the nose to keep constant pressure on the bleeding area. Contact a health care provider if you: ? Have a fever. ? Get nosebleeds often or more often than usual. ? Bruise very easily. ? Have a nosebleed from having something stuck in your nose. ? Have bleeding in your mouth. ? Vomit or cough up brown material. ? Have a nosebleed after you start a new medicine. Get help right away if: ? You have a nosebleed after a fall or a head injury. ? Your nosebleed does not go away after 20 minutes. ? You feel dizzy or weak. ? You have unusual bleeding from other parts of your body. ? You have unusual bruising on other parts of your body. ? You become sweaty. ? You vomit blood. Summary ? A nosebleed is when blood comes out of the nose. Common causes include allergies, an injury to the nose, or cold or dry air. ? Initial treatment includes applying pressure for 5 minutes. ? Moisturizing the nose with saline nasal spray or gel after a nosebleed may help prevent future bleeding. ? Get help right away if your nosebleed does not go away after 20 minutes. This information is not intended to replace advice given to you by your health care provider. Make sure you discuss any questions you have with your health care provider. Document Revised: 03/14/2020 Document Reviewed: 03/14/2020 [employer] Patient Education ? 2021 [employer] Neurology Migraine Headache A migraine headache is an intense, throbbing pain on one side or both sides of the head. Migraine headaches may also cause other symptoms, such as nausea, vomiting, and sensitivity to light and noise. A migraine headache can last from 4 hours to 3 days. Talk with your doctor about what things may bring on (trigger) your migraine headaches. What are the causes? The exact cause of this condition is not known. However, a migraine may be caused when nerves in the brain become irritated and release chemicals that cause inflammation of blood vessels. This inflammation causes pain. This condition may be triggered or caused by: ? (more content not included)... Normal [facility] ED Patient Summaryon 023 ED Patient Summary [address] [address] Patient Discharge Instructions Person Information Name: OSMAN COHEN Age: 22 Years Arrival Date: 01/16/2023 15:34:36 Discharge Diagnosis: Epistaxis; Migraine Primary Care Physician: MINAL NEWMAN DO Provider Information Primary Provider: Gus Mcgowan DO Advanced Brand Lead:None The exam and treatment you received in the Emergency Department were for an urgent problem and are not intended as complete care. It is important that you follow up with a doctor, nurse practitioner, or physician?s administrative assistant for ongoing care. If your symptoms become worse or you do not improve as expected and you are unable to reach your usual health care provider, you should return to the Emergency Department. We are available 24 hours a day. OSMAN COHEN has been given the following list of patient education materials, prescriptions and follow-up instructions: Follow-up Instructions: With: Address: When: [employer] [address] [address] Business (1) In 3 days 01/19/2023 With: Address: When: MINAL NEWMAN [address], [address] [place] [address] Business (1) In 3 days In the event that this physician does not participate in your insurance network, please consult with your insurance company to find a nearby participating provider. Patient Education Materials: Nosebleed, Adult; Migraine Headache A MESSAGE TO ALL PATIENTS REGARDING OPIOIDS PRESCRIPTION OPIOIDS: WHAT YOU NEED TO KNOW Prescription opioids can be used to help relieve mdoptslm-rz-wjsefr pain and are often prescribed following a surgery or injury, or for certain health conditions. These medications can be an important part of the treatment but also come with serious risks. It is important to work with your healthcare provider to make sure you are getting the safest, most effective care. WHAT ARE THE RISKS AND SIDE EFFECTS OF OPIOID USE? Prescription opioids carry serious risks of addiction and overdose, especially with prolonged use. An opioid overdose, often marked by slowed breathing, can cause sudden . The use of prescription opioids can have a number of side effects as well, even when taken as directed: ? Tolerance?meaning you might need to take more of the medication for the same pain relief ? Physical dependence?meaning you have symptoms of withdrawal when a medication is stopped ? Increased sensitivity to pain ? Constipation ? Nausea, vomiting, and dry mouth ? Sleepiness and dizziness ? Confusion ? Depression ? Low levels of testosterone that can result in lower sex drive, energy, and strength ? Itching and sweating RISKS ARE GREATER WITH: ? History of drug misuse, substance use disorder, or overdose ? Mental health conditions (such as depression or anxiety) ? Sleep apnea ? Older age (65 years and older) ? Avoid alcohol while taking prescription opioids. Also, unless specifically advised by your health care provider, medications to avoid include: ? Benzodiazepines (such as Xanax or Valium) ? Muscle relaxants (such as Soma or Flexeril) ? Hypnotics (such as Ambien or Lunesta) ? Other prescription opioids KNOW YOUR OPTIONS Talk to your health care provider about ways to manage your pain that don?t involve prescription opioids. Some of these options may actually work better and have fewer risks and side effects. Options may include: ? Pain relievers such as acetaminophen, ibuprofen, and naproxen ? Some medication that are also used for depression or seizures ? Physical therapy and exercise ? Cognitive behavioral therapy, a psychological, goal-directed approach, in which patients learn how to modify physical, behavioral, and emotional triggers of pain and stress. IF YOU ARE PRESCRIBED OPIOIDS FOR PAIN: ? Never take opioids in greater amounts or more often than prescribed. ? Follow up with your primary health care provider. o Work together to create a plan on how to manage your pain. o Talk about ways to help manage your pain that don?t involve prescription opioids. o Talk about any and all concerns and side effects. ? Help prevent misuse and abuse o Never sell or share prescription opioids. o Never use another person?s prescription opioids. ? Store prescription opioids in a secure place and out of reach of others (this may include visitors, children, friends, and family). ? Safely dispose of unused prescription opioids: Find your community drug take-back program or your pharmacy mail-back program, or flush them down the toilet, following guidance from the Food and Drug Administration (www.fda.gov/Drugs/ ResourcesForYou). ? Visit www.cdc.gov/drugove rdose to learn about the risks of opioids abuse and overdose. ? If you believe you may be struggling with addiction, tell y (more content not included)... Normal [facility] HEMATOLOGYOrdered By: SYSTEM SYSTEM on 01-16-2023 Basophils/100 WBC (Bld) 0.4 % Normal 0.0 - 2.0 % [facility] Basophils/Leukocytes Auto (Bld) [Pure # fraction] 0.0 E9/L Normal 0.0 - 0.2 E9/L [facility] Eosinophils/100 WBC (Bld) 1.1 % Normal 0.0 - 8.0 % [facility] Eosinophils/Leukocytes Auto (Bld) [Pure # fraction] 0.1 E9/L Normal 0.0 - 0.5 E9/L [facility] Lymphocytes/100 WBC (Bld) 35.0 % Normal 14.0 - 50.0 % [facility] Lymphocytes/Leukocytes Auto (Bld) [Pure # fraction] 2.7 E9/L Normal 1.0 - 4.0 E9/L [facility] Monocytes/100 WBC (Bld) 6.5 % Normal 4.0 - 14.0 % [facility] Monocytes/Leukocytes Auto (Bld) [Pure # fraction] 0.5 E9/L Normal 0.2 - 1.0 E9/L [facility] Neutrophils/100 WBC (Bld) 57.0 % Normal 36.0 - 75.0 % [facility] Neutrophils/Leukocytes Auto (Bld) [Pure # fraction] 4.5 E9/L Normal 2.0 - 7.5 E9/L [facility] HEMATOLOGYOrdered By: Ana Maria Weinberg on 01-16-2023 Erythrocyte distribution width (RBC) [Ratio] 13.1 % Normal 10.9 - 14.2 % [facility] Hematocrit (Bld) [Volume fraction] 38.7 % Normal 34.0 - 46.0 % [facility] Hemoglobin (Bld) [Mass/Vol] 13.0 g/dL Normal 12.0 - 16.0 gm/dL [facility] MCH (RBC) [Entitic mass] 26.2 pg Low 27. 0 - 34.0 pg [facility] MCHC (RBC) [Mass/Vol] 33.7 g/dL Normal 31.4 - 36.0 gm/dL [facility] MCV (RBC) [Entitic vol] 77.7 fL Low 80.0 - 100.0 fL [facility] Platelet mean volume (Bld) [Entitic vol] 7.0 fL Normal 6.4 - 10.8 fL [facility] Platelets (Bld) [#/Vol] 310.0 E9/L Normal 150. 0 - 500.0 E9/L [facility] RBC (Bld) [#/Vol] 5.0 E12/L Normal 4.3 - 5.9 E12/L [facility] WBC corrected for nucl RBC Auto (Bld) [#/Vol] 7.8 E9/L Normal 4.0 - 11.0 E9/L [facility] PT & PTTon 01-16-2023 aPTT Coag (PPP) [Time] 31.3 second(s) Normal 25.1-36.5 [facility] Comment on above: Result Comment: Para meter 15 days - 4 weeks 1 - 5 months 6 - 11 months 1 - 5 years 6 - 10 years 11 - 17 years PTT Mean: 35.4 (27.6-45.6) Mean: 33.5 (24.8-40.7) Mean: 32.4 (25.1-40.7) Mean: 31.6 (24.0-39.2) Mean: 31.6 (26.9-38.7) Mean: 31.0 (24.6-38.4) Pediatric Reference ranges were obtained from a study by anshul Izquierdo prepared from 1437 samples obtained at 7 different centers using the same coagulation reagent and instrumentation as [facility]. Currently there are no coagulation studies available worldwide for children to 14 days, and no normal ranges. Heparin therapeutic range (represented by Anti-Factor Xa activity of 0.2 - 0.4 U/mL) corresponds to PTT of 56.6 - 109.0 sec. Performed By: #### 1 [id number], [id number], [id number], [id number], [id number], [id number] #### [facility] [address] [place] [address] INR Coag (PPP) [Relative time] 1.1 {INR} Invalid Interpretation Code [facility] Comment on above: Result Comment: INR results are specifically intended to assess patients stabilized on long-term Anticoagulation therapy suggested INR?s ?Less Intensive Anticoagulation? 2.0 ? 3.0 Conventional Range 3.0 ? 4.5 Performed By: #### 1 [id number], [id number], [id number], [id number], [id number] #### [facility] [address] [place] [id number] PT Coag (PPP) [Time] 12.0 second(s) Normal 9.4-12.5 [facility] Comment on above: Result Comment: 15 d ays - 4 weeks 1 - 5 months 6 -11 months 1-5 years 6-10 years 11 -17 years Mean: 11.2 (9.5-12.6) Mean: 11.0 (9.7-12.8) Mean: 11.0 (9.8-13.0) Mean: 11.3 (9.9-13.4) Mean: 11.7 (10.0-14.6) Mean: 11.8 (10.0 - 14.1) Pediatric Reference ranges were obtained from a study by anshul Izquierdo prepared from 1437 samples obtained at 7 different centers using the same coagulation reagent and instrumentation as [facility]. Currently there are no coagulation studies available worldwide for children to 14 days, and no normal ranges. Performed By: #### 1 [id number], [id number], [id number], [id number], [id number], [id number] #### [facility] [address] [place] [address] Prescriptions/Work Noteson 0 01-16-2023 Prescriptions/Work Notes [id number] Normal [facility] SEROLOGYOrdered By: Navid Scott on 01-16-2023 Beta hCG Ql Negative (01/16/23 3:58 PM) Normal [facility] Man Sero eGFRon 01-16-2023 GFR/1.73 sq M.predicted among non-blacks MDRD (S/P/Bld) [Vol rate/Area] 127 mL/min/1.73 m2 Normal >=59 [facility] Comment on above: Order Comment: Order added by Discern Expert. Result Comment: Consultant [employer] flores kidney disease could be indicated at eGFR's of less than 60 mL/min/1.73m2. Kidney failure is indicated at less than 15 mL/min/1.73m2. Performed By: #### 1 [id number], [id number], [id number] #### [facility] [address] [place] [address] Automated erythrocytes count in urine sediment (number/area)Ordered By: Teja Beth on 12-19-2022 RBC Auto (Urine sed) [#/Area] 3-4 [HPF] 0-4 [facility] Automated leukocytes count i n urine sediment (number/area)Ordered By: Teja Beth on 12-19-2022 WBC Auto (Urine sed) [#/Area] 1-2 [HPF] 0-4 [facility] Bilirubin Test strip Ql (U)O rdered By: Teja Beth on 12-19-2022 Bilirubin Ql (U) Negative Negative [place] COVID CepheidOrdered By: Nikolay Beth on 12-19-2022 SARS-CoV-2 (COVID-19) Ab IA Ql Negative Negative [facility] Comment on above: This is a duplicate Cepheid Xpert Xpress CoV-2/Flu/RSV Plus RNA by RT-PCR result to be used for statistical tracking purpose only. SARS-CoV-2 (COVID-19) RNA ROXANA+probe Ql (Unsp spec) [facility] COVID-19 / Flu A/B / RSV PCR on 12-19-2022 SARS-CoV-2 (COVID-19) RNA ROXANA+probe Ql (Unsp spec) COVID-19 Cepheid Result Negative for SARS-CoV-2 RNA by RT-PCR Flu A Cepheid Result Negative for Flu A RNA by RT-PCR Flu B Cepheid Result Negative for Flu B RNA by RT-PCR RSV Cepheid Result Negative for RSV RNA by RT-PCR COVID19 Blank Space Reference: Negative COVID19 Blank Space Cepheid Disclaimer The Cepheid Xpert Xpress CoV-2/Flu/RSV Plus has Cepheid Disclaimer not been FDA cleared or approved; this test has Cepheid Disclaimer been authorized by FDA under an EUA for use by Cepheid Disclaimer authorized laboratories; this test has been Cepheid Disclaimer authorized only for the simultaneous qualitative Cepheid Disclaimer detection and differentiation of nucleic acids from Cepheid Disclaimer SARS-CoV-2, influenza A, influenza B, and Cepheid Disclaimer respiratory syncytial virus (RSV), and not for any Cepheid Disclaimer other viruses or pathogens; and this test is only Cepheid Disclaimer authorized for the duration of the declaration that Cepheid Disclaimer circumstances exist justifying the authorization of Cepheid Disclaimer emergency use of in vitro diagnostic tests for Cepheid Disclaimer detection and/or diagnosis of COVID-19 under Cepheid Disclaimer Section 564(b)(1) of the Act, 21 U.S.C. 360bbb- Cepheid Disclaimer 3(b)(1), unless the authorization is terminated or Cepheid Disclaimer revoked sooner. PERFORMED BY: [place] [address] PATHOLOGIST [employer] GRABIEL MASNO M.D. Normal [facility] Comment on above: Performed By: #### C OVID19 FLU RSV, CEPHEID NEG #### [address] Cepheid COVID PCR Negativeon 12-19-2022 SARS-CoV-2 (COVID-19) RNA ROXANA+probe Ql (Unsp spec) Negative Normal Negative [facility] Comment on above: Result Comment: This is a duplicate Cepheid Xpert Xpress CoV-2/Flu/RSV Plus RNA by RT-PCR result to be used for statistical tracking purpose only. PERFORMED BY: [place] [address] PATHOLOGIST [employer] GRABIEL MASON M.D. Performed By: #### C OVID19 FLU RSV, CEPHEID NEG #### [place] [address] [place] Color Auto (U)Ordered By: Diogenes Beth on 12-19-2022 Color (U) Yellow Yellow [facility] Dipstick and Microscopicon 0 12-19-2022 Appearance (U) Clear Normal Clear [facility] Comment on above: Order Comment: Name Collection Type:: Clean-Voided Midstream Performed By: #### U HCG, ADDONUAPLUS #### [facility] [address] [place] [address] [place] Bacteria,Urine None Seen Normal None Seen [facility] Comment on above: Order Comment: Name Collection Type:: Clean-Voided Midstream Performed By: #### U HCG, ADDONUAPLUS #### [facility] [address] [place], [place] [id number] [place] Bilirubin,Urine Negative Normal Negative [facility] Comment on above: Order Comment: Name Collection Type:: Clean-Voided Midstream Performed By: #### U HCG, ADDONUAPLUS #### [facility] [address] [place] [address] [place] Color (U) Yellow Normal Yellow [facility] Comment on above: Order Comment: Name Collection Type:: Clean-Voided Midstream Performed By: #### U HCG, ADDONUAPLUS #### [facility] [address] [place] [address] Glucose Ql (U) Normal Normal Normal [facility] Comment on above: Order Comment: Name Collection Type:: Clean-Voided Midstream Performed By: #### U HCG, ADDONUAPLUS #### [facility] [address] [place] [address] [place] Hyaline Casts,Urine 0-8 Normal 0-[address] [facility] Comment on above: Order Comment: Name Collection Type:: Clean-Voided Midstream Performed By: #### U HCG, ADDONUAPLUS #### [facility] [address] [place] [address] [place] Ketones Ql (U) Trace High Negative [facility] Comment on above: Order Comment: Name Collection Type:: Clean-Voided Midstream Performed By: #### U HCG, ADDONUAPLUS #### [facility] [address] [place] [address] Leukocyte esterase Test strip Ql (U) 1+ High Negative [facility] Comment on above: Order Comment: Name Collection Type:: Clean-Voided Midstream Performed By: #### U HCG, ADDONUAPLUS #### [facility] [address] [place] [address] [place] Nitrite,Urine Negative Normal Negative [facility] Comment on above: Order Comment: Name Collection Type:: Clean-Voided Midstream Performed By: #### U HCG, ADDONUAPLUS #### [facility] [address] [place] [address] [place] Occult Blood,Urine Negative Normal Negative [facility] Comment on above: Order Comment: Name Collection Type:: Clean-Voided Midstream Performed By: #### U HCG, ADDONUAPLUS #### [facility] [address] pH (U) 6.0 [pH] Normal 5.0-9.0 [facility] Comment on above: Order Comment: Name Collection Type:: Clean-Voided Midstream Performed By: #### U HCG, ADDONUAPLUS #### [address] Protein,Urine Negative Normal Negative [facility] Comment on above: Order Comment: Name Collection Type:: Clean-Voided Midstream Performed By: #### U HCG, ADDONUAPLUS #### [address] RBC,Urine 3-4 Normal 0-4 [facility] Comment on above: Order Comment: Name Collection Type:: Clean-Voided Midstream Performed By: #### U HCG, ADDONUAPLUS #### [address] Specificy [place],Urine 1.022 Normal 1.001-1.030 [facility] Comment on above: Order Comment: Name Collection Type:: Clean-Voided Midstream Performed By: #### U HCG, ADDONUAPLUS #### [address] Squamous Epithelial Cell,Urine 5-9 High 0-2 [facility] Comment on above: Order Comment: Name Collection Type:: Clean-Voided Midstream Performed By: #### U HCG, ADDONUAPLUS #### [address] Urobilinogen,Urine Normal Normal Normal [facility] Comment on above: Order Comment: Name Collection Type:: Clean-Voided Midstream Performed By: #### U HCG, ADDONUAPLUS #### [address] WBC,Urine 1-2 Normal 0-4 [facility] Comment on above: Order Comment: Name Collection Type:: Clean-Voided Midstream Performed By: #### U HCG, ADDONUAPLUS #### [address] HCG ( test) IA.rapi d Ql (U)Ordered By: Teja Beth on 12-19-2022 HCG ( test) Ql (U) Negative [facility] HCG,Urineon 12-19-2022 Beta HCG ( test) Ql (U) Negative Normal [facility] Comment on above: Order Comment: Name Collection Type:: Clean-Voided Midstream Result Comment: PERF ORMED BY: [place] [address] PATHOLOGIST [employer] GRABIEL MASON M.D. Performed By: #### U HCG, ADDONUAPLUS #### [address] Ketones Auto test strip (U) [Mass/Vol]Ordered By: Teja Beth on 12-19-2022 Ketones (U) [Mass/Vol] Trace Negative [facility] - UrinalysisOrder ed By: Teja Beth on 12-19-2022 Hyaline casts LM Ql (Urine sed) 0-8 [LPF] 0-8 [facility] Nitrite Test strip Ql (U)Ord ered By: Teja Beth on 12-19-2022 Nitrite Ql (U) Negative Negative [facility] Protein Auto test strip (U) [Mass/Vol]Ordered By: Teja Beth on 12-19-2022 Protein (U) [Mass/Vol] Negative Negative [facility] Specific gravity Auto test s trip (U) [Rel density]Ordered By: Teja Beth on 12-19-2022 Specific gravity (U) [Rel density] 1.022 1.001-1.030 [facility] Squamous epithelial cells de tection in urine sediment by light microscopyOrdered By: Teja Beth on 12-19-2022 Epithelial cells.squamous LM Ql (Urine sed) 5-9 [HPF] 0-2 [facility] Urine bacteria detection by automated methodOrdered By: Teja Beth on 12-19-2022 Bacteria Auto Ql (U) None seen None Seen [facility] Urine clarity by refractomet ry automatedOrdered By: Teja Beth on 12-19-2022 Clarity Refractometry automated (U) Clear Clear [facility] Urine glucose measurement by automated test strip (mass/volume)Ordered By: Teja Beth on 12-19-2022 Glucose Auto test strip (U) [Mass/Vol] Normal mg/dL Normal [facility] Urine hemoglobin detection b y automated test stripOrdered By: Teja Beth on 12-19-2022 Hemoglobin Auto test strip Ql (U) Negative Negative [facility] Urine leukocyte esterase det ection by automated test stripOrdered By: Teja Beth on 12-19-2022 Leukocyte esterase Auto test strip Ql (U) 1+ Negative [facility] Urobilinogen Auto test strip (U) [Mass/Vol]Ordered By: Teja Beth on 12-19-2022 Urobilinogen (U) [Mass/Vol] Normal mg/dL Normal [facility] pH Auto test strip (U)Ordere d By: Teja Beth on 12-19-2022 pH (U) 6.0 [pH] 5.0-9.0 [facility] ED Note-Physicianon 12-19-19 ED Note-Physician Basic Information Time Seen: Maren Middleton PA-C 11/29/2022 09:15 Chief Complaint pt c/o sore throat x 5 days, seen here wednesday. History of Present Illness This patient presents emergency department chief complaint of a sore throat. The patient states this is gotten worse over the last 3 days. She now states she is constantly coughing because of her throat being so swollen. She denies any difficulty breathing. She denies any chest pain or shortness of breath. Patient states she has had recurrent strep throat in the past. The patient does not smoke. She does not drink alcohol. She does not use any street drugs. Patient denies and is on oral contraceptive. She has no known allergies. She does not routinely take any other medications. She denies any fevers chills or sweats. She has a lot of nasal congestion, but minimal drainage. She has a cough that is nonproductive. Review of Systems Constitutional: Denies weight loss, fevers, chills, sweats, malaise Eyes: Denies visual changes, eye pain, double vision, scotomas, floaters ENT: Denies runny nose, epistaxis, sinus pain, ear pain, ringing in ears, tooth ache. + sore throat, pain with swallowing Cardiovascular: Denies chest pain, shortness of breath, orthopnea, edema, palpitations, loss of consciousness, claudication Respiratory: Denies cough, sputum production, wheezing, hemoptysis, shortness of breath, dyspnea on exertion Gastrointestinal: Denies abdominal pain, unintentional weight loss, difficulty swallowing, indigestion, bloating, cramping, loss of appetite, nausea, vomiting, diarrhea, constipation, hematochezia, melena Genitourinary: Denies any incontinence of urine, dysuria, hematuria, nocturia, polyuria, hesitancy, frequency, urgency, burning Musculoskeletal: Denies joint pain, morning stiffness, joint swelling, decreased range of motion, crepitus Integumentary: Denies any pruritus, rashes, lesions, wounds, petechiae Neurologic: Denies any changes in sight, smell, hearing, taste, seizures, headache, paresthesia, numbness, weakness, balance disturbance Psychiatric denies any depression, change in sleep patterns, anxiety, difficulty concentrating, paranoia, anhedonia, lack of energy, melissa Hematologic/lymphat ic: Denies any purpura, petechiae, excessive bleeding, bruising Physical Exam Vitals & Measurements T: 36.7 ?C(Oral) HR: 84(Peripheral) RR: 16 BP: 125/81 SpO2: 99% HT: 164 cm WT: 97.8 kg BMI: 36.36 Vital Signs reviewed and noted. General: Alert, no acute distress, patient resting comfortably Skin: warm, intact, no pallor noted Head: Normocephalic, atraumatic . TMs are intact bilaterally, canals are clear bilaterally. Oral mucosa is pink and moist. Posterior pharynx is injected with enlarged tonsils with exudate. Airways patent. The neck is supple, no palpable adenopathy. Eye: Normal conjunctiva Cardiac: Regular rate and rhythm Respiratory: Clear to auscultation Musculoskeletal: No deformity, full ROM. Neurological: alert and oriented, normal sensory and motor observed. Psychiatric: Cooperative Medical Decision Making MEDICAL DECISION MAKING Number and Complexity of Problems Differential Diagnosis: Exudative pharyngitis, viral pharyngitis, strep pharyngitis MDM Data External documents reviewed: Not applicable My EKG interpretation: Noted in chart if applicable My CT interpretation: Noted in chart if applicable My X-ray interpretation: Noted in chart if applicable My Ultrasound interpretation: Not applicable Decision rules/scores evaluated: Noted in chart if applicable Discussed with: Not applicable Treatment and Disposition ED Course: Patient was interviewed and examined. This is the patient's second ER visit. I have discussed the discharge diagnosis, plan of care, home-going instructions. The patient is to follow-up with her primary care physician. She is to return to the emergency department for any further problems or concerns. I discussed the discharge diagnosis and plan of care with the patient. She is in agreement with the plan of care. Shared decision making: Her kidney function Code status: Not applicable Assessment/Plan 1. Exudative pharyngitis (J02.9: Acute pharyngitis, unspecified) Disposition Plan Patient Discharge Condition Stable Discharge Disposition Home Discharge Prescription List Prescriptions No active prescription medications Follow-up No qualifying data available Attestation Patient was treated and evaluated by the Physician Electric [employer] Assembler. The attending physician was in the Emergency Department at all times and supervised care. The case was discussed with the attending physician and diagnostics were reviewed as needed. Problem List/Past Medical History Ongoing No qualifying data Historical Migraine Medications Inpatient No active inpatient medications Home Naprosyn 500 mg Tab, 500 mg= 1 tab(s), Oral, BID naproxen 500 mg Tab, 500 mg= 1 tab(s), Oral, BID Allergies No (more content not included)... [facility] Comment on above: Result Comment: Elec tronically Signed By: Maren Middleton PA-C\.br\Date and Time Signed: 11/29/22 09:35 EDT\.br\Electronically Co-Signed By: Nikolay Valencia MD\.br\Date and Time Co-Signed: 12/18/22 09:30 EDT Consent for Treatmenton Consent for Treatment [id number] 98#1.00CD:127 [facility] Discharge Instructionson Discharge Instructions [id number] 53#1.00CD:127 [facility] ED Clinical Summaryon 2022 ED Clinical Summary [address] [address] ED Clinical Summary Person Information Name: OSMAN COHEN/[place] Age: 22 Years : 2000 Sex: Female Language: Georgian PCP: MINAL NEWMAN DO Marital Status: Single Visit Id: Visit Reason: Throat pain - Adult; SORE THROAT Speciality: Acuity: 5 Enc Type: Emergency Med Service: Emergency Arrival: 11/29/2022 09:08:57 Discharge: 11/29/2022 09:57:03 LOS: 000 00:49 Checkin: 11/29/2022 09:08:57 Checkout: 11/29/2022 09:57:03 Dispo Type: Home (Routine DC) EVENTS: Event Name Event Status Request Date/Time Start Date/Time Complete Date/Time Arrive Complete 11/29/2022 09:08:57 11/29/2022 09:08:57 11/29/2022 09:08:57 Document Home Meds Request 11/29/2022 09:08:57 Triage Complete 11/29/2022 09:08:57 11/29/2022 09:25:34 11/29/2022 09:25:34 Registration Complete 11/29/2022 09:11:38 11/29/2022 09:11:38 11/29/2022 09:11:38 Reg Complete Request 11/29/2022 09:11:38 Reg Bed Request Complete 11/29/2022 09:11:38 11/29/2022 09:11:38 11/29/2022 09:11:38 Dr Exam Complete 11/29/2022 09:15:10 11/29/2022 09:15:10 11/29/2022 09:15:10 Registration Complete 11/29/2022 09:15:10 11/29/2022 09:20:52 11/29/2022 09:45:38 Bed Assign Complete 11/29/2022 09:20:52 11/29/2022 09:20:52 11/29/2022 09:20:52 RN Exam Complete 11/29/2022 09:20:52 11/29/2022 09:27:33 11/29/2022 09:27:33 Discharge Complete 11/29/2022 09:48:06 11/29/2022 09:57:10 11/29/2022 09:57:10 Transfer Complete 11/29/2022 09:57:10 11/29/2022 09:57:10 11/29/2022 09:57:10 ADDRESS: [address] [place] [id number] PHYS DOC NOTES: MEDICAL INFORMATION: Prescriptions Given: New Medications [facility] [id number], [address] [place] [id number], [phone] amoxicillin (amoxicillin 875 mg Tab) 1 Tablets By Mouth 2 times a day for 10 Days. Refills: 0. Medications to Continue with No Changes Other Medications naproxen (Naprosyn 500 mg Tab) 1 Tablets By Mouth 2 times a day. Refills: 0. naproxen (naproxen 500 mg Tab) 1 Tablets By Mouth 2 times a day. Take one tab by mouth two times a day. Refills: 0. PATIENT EDUCATION INFORMATION: Instructions: Pharyngitis, [id number] Follow up: With: Address: When: MINAL TRENT [address], [address] [address] Business (1) In 3 days 12/02/2022 DIAGNOSIS: 1:Exudative pharyngitis [facility] ED Patient Education Noteon 11-29-2022 ED Patient Education Note Infectious Disease Pharyngitis Pharyngitis is a sore throat (pharynx). This is when there is redness, pain, and swelling in your throat. Most of the time, this condition gets better on its own. In some cases, you may need medicine. What are the causes? ? An infection from a virus. ? An infection from bacteria. ? Allergies. What increases the risk? ? Being 5?24 years old. ? Being in crowded environments. These include: ? Daycares. ? Schools. ? Dormitories. ? Living in a place with cold temperatures outside. ? Having a weakened disease-fighting (immune) system. What are the signs or symptoms? Symptoms may vary depending on the cause. Common symptoms include: ? Sore throat. ? Tiredness (fatigue). ? Low-grade fever. ? Stuffy nose. ? Cough. ? Headache. Other symptoms may include: ? Glands in the neck (lymph nodes) that are swollen. ? Skin rashes. ? Film on the throat or tonsils. This can be caused by an infection from bacteria. ? Vomiting. ? Red, itchy eyes. ? Loss of appetite. ? Joint pain and muscle aches. ? Tonsils that are temporarily bigger than usual (enlarged). How is this treated? Many times, treatment is not needed. This condition usually gets better in 3?4 days without treatment. If the infection is caused by a bacteria, you may be need to take antibiotics. Follow these instructions at home: Medicines ? Take wqcj-zch-cdysalb and prescription medicines only as told by your doctor. ? If you were prescribed an antibiotic medicine, take it as told by your doctor. Do not stop taking the antibiotic even if you start to feel better. ? Use throat lozenges or sprays to soothe your throat as told by your doctor. ? Children can get pharyngitis. Do not give your child aspirin. Managing pain To help with pain, try: ? Sipping warm liquids, such as: ? Broth. ? Herbal tea. ? Warm water. ? Eating or drinking cold or frozen liquids, such as frozen ice pops. ? Rinsing your mouth (gargle) with a salt water mixture 3?4 times a day or as needed. ? To make salt water, dissolve ??1 tsp (3?6 g) of salt in 1 cup (237 mL) of warm water. ? Do not swallow this mixture. ? Sucking on hard candy or throat lozenges. ? Putting a cool-mist humidifier in your bedroom at night to moisten the air. ? Sitting in the bathroom with the door closed for 5?10 minutes while you run hot water in the shower. General instructions ? Do not smoke or use any products that contain nicotine or tobacco. If you need help quitting, ask your doctor. ? Rest as told by your doctor. ? Drink enough fluid to keep your pee (urine) pale yellow. How is this prevented? ? Wash your hands often for at least 20 seconds with soap and water. If soap and water are not available, use hand jewelry setter. ? Do not touch your eyes, nose, or mouth with unwashed hands. Wash hands after touching these areas. ? Do not share cups or eating utensils. ? Avoid close contact with people who are sick. Contact a doctor if: ? You have large, tender lumps in your neck. ? You have a rash. ? You cough up green, yellow-brown, or bloody spit. Get help right away if: ? You have a stiff neck. ? You drool or cannot swallow liquids. ? You cannot drink or take medicines without vomiting. ? You have very bad pain that does not go away with medicine. ? You have problems breathing, and it is not from a stuffy nose. ? You have new pain and swelling in your knees, ankles, wrists, or elbows. These symptoms may be an emergency. Get help right away. Call your local emergency services (911 in the [place] ? Do not wait to see if the symptoms will go away. ? Do not drive yourself to the hospital. Summary ? Pharyngitis is a sore throat (pharynx). This is when there is redness, pain, and swelling in your throat. ? Most of the time, pharyngitis gets better on its own. Sometimes, you may need medicine. ? If you were prescribed an antibiotic medicine, take it as told by your doctor. Do not stop taking the antibiotic even if you start to feel better. This information is not intended to replace advice given to you by your health care provider. Make sure you discuss any questions you have with your health care provider. Document Revised: 08/13/2021 Document Reviewed: 08/13/2021 Elsevier Patient Education ? 2022 [employer] [facility] ED Patient Summaryon 023 ED Patient Summary [address] [address] Patient Discharge Instructions Person Information Name: OSMAN COHEN Age: 22 Years Arrival Date: 11/29/2022 09:08:57 Discharge Diagnosis: 1:Exudative pharyngitis Primary Care Physician: MINAL NEWMAN DO Provider Information Primary Provider: [employer] Lead:None The exam and treatment you received in the Emergency Department were for an urgent problem and are not intended as complete care. It is important that you follow up with a doctor, nurse practitioner, or physician?s administrative assistant for ongoing care. If your symptoms become worse or you do not improve as expected and you are unable to reach your usual health care provider, you should return to the Emergency Department. We are available 24 hours a day. OSMAN COHEN has been given the following list of patient education materials, prescriptions and follow-up instructions: Follow-up Instructions: With: Address: When: MINAL NEWMAN [address], [address] [place] [id number] [facility] (1) In 3 days 12/02/2022 In the event that this physician does not participate in your insurance network, please consult with your insurance company to find a nearby participating provider. Patient Education Materials: Pharyngitis, Slea-qv-Bmho A MESSAGE TO ALL PATIENTS REGARDING OPIOIDS PRESCRIPTION OPIOIDS: WHAT YOU NEED TO KNOW Prescription opioids can be used to help relieve ktnxjrdk-py-uidrxl pain and are often prescribed following a surgery or injury, or for certain health conditions. These medications can be an important part of the treatment but also come with serious risks. It is important to work with your healthcare provider to make sure you are getting the safest, most effective care. WHAT ARE THE RISKS AND SIDE EFFECTS OF OPIOID USE? Prescription opioids carry serious risks of addiction and overdose, especially with prolonged use. An opioid overdose, often marked by slowed breathing, can cause sudden . The use of prescription opioids can have a number of side effects as well, even when taken as directed: ? Tolerance?meaning you might need to take more of the medication for the same pain relief ? Physical dependence?meaning you have symptoms of withdrawal when a medication is stopped ? Increased sensitivity to pain ? Constipation ? Nausea, vomiting, and dry mouth ? Sleepiness and dizziness ? Confusion ? Depression ? Low levels of testosterone that can result in lower sex drive, energy, and strength ? Itching and sweating RISKS ARE GREATER WITH: ? History of drug misuse, substance use disorder, or overdose ? Mental health conditions (such as depression or anxiety) ? Sleep apnea ? Older age (65 years and older) ? Avoid alcohol while taking prescription opioids. Also, unless specifically advised by your health care provider, medications to avoid include: ? Benzodiazepines (such as Xanax or Valium) ? Muscle relaxants (such as Soma or Flexeril) ? Hypnotics (such as Ambien or Lunesta) ? Other prescription opioids KNOW YOUR OPTIONS Talk to your health care provider about ways to manage your pain that don?t involve prescription opioids. Some of these options may actually work better and have fewer risks and side effects. Options may include: ? Pain relievers such as acetaminophen, ibuprofen, and naproxen ? Some medication that are also used for depression or seizures ? Physical therapy and exercise ? Cognitive behavioral therapy, a psychological, goal-directed approach, in which patients learn how to modify physical, behavioral, and emotional triggers of pain and stress. IF YOU ARE PRESCRIBED OPIOIDS FOR PAIN: ? Never take opioids in greater amounts or more often than prescribed. ? Follow up with your primary health care provider. o Work together to create a plan on how to manage your pain. o Talk about ways to help manage your pain that don?t involve prescription opioids. o Talk about any and all concerns and side effects. ? Help prevent misuse and abuse o Never sell or share prescription opioids. o Never use another person?s prescription opioids. ? Store prescription opioids in a secure place and out of reach of others (this may include visitors, children, friends, and family). ? Safely dispose of unused prescription opioids: Find your community drug take-back program or your pharmacy mail-back program, or flush them down the toilet, following guidance from the Food and Drug Administration (www.fda.gov/Drugs/ ResourcesForYou). ? Visit www.cdc.gov/drugove rdose to learn about the risks of opioids abuse and overdose. ? If you believe you may be struggling with addiction, tell your health care transitions manager and ask for guidance or call [employer]A?S National Helpline at 2-565-045-HELP. z Source: [place] Department of Health and Human (more content not included)... [facility] Prescriptions/Work Noteson 0 11-29-2022 Prescriptions/Work Notes [id number] 36#1.00CD:127 [facility] Consent for Treatmenton 06-2 Consent for Treatment [id number] 86#1.00CD:127 [facility] Discharge Instructionson Discharge Instructions [id number] 02#1.00CD:127 [facility] ED Clinical Summaryon 2022 ED Clinical Summary [place] [id number] ED Clinical Summary Person Information Name: OSMAN COHEN/[facility] Age: 22 Years : 2000 Sex: Female Language: Georgian PCP: MINAL NEWMAN DO Marital Status: Single Visit Id: Visit Reason: Throat pain - Adult; THROAT PAIN Speciality: Acuity: 4 Enc Type: Emergency Med Service: Emergency Arrival: 11/25/2022 11:16:53 Discharge: 11/25/2022 11:59:36 LOS: 000 00:43 Checkin: 11/25/2022 11:16:53 Checkout: 11/25/2022 11:59:36 Dispo Type: Home (Routine DC) EVENTS: Event Name Event Status Request Date/Time Start Date/Time Complete Date/Time Arrive Complete 11/25/2022 11:16:53 11/25/2022 11:16:53 11/25/2022 11:16:53 Document Home Meds Request 11/25/2022 11:16:53 Triage Complete 11/25/2022 11:16:53 11/25/2022 11:24:35 11/25/2022 11:24:35 Bed Assign Complete 11/25/2022 11:19:42 11/25/2022 11:19:42 11/25/2022 11:19:42 Dr Exam Complete 11/25/2022 11:19:42 11/25/2022 11:26:27 11/25/2022 11:26:27 RN Exam Complete 11/25/2022 11:19:42 11/25/2022 11:25:54 11/25/2022 11:25:54 Pending Labs Complete 11/25/2022 11:26:14 11/25/2022 11:45:03 Registration Complete 11/25/2022 11:26:27 11/25/2022 11:30:53 11/25/2022 11:30:53 Dr Exam Complete 11/25/2022 11:26:31 11/25/2022 11:26:31 11/25/2022 11:26:31 Reg Complete Request 11/25/2022 11:30:53 Reg Bed Request Complete 11/25/2022 11:30:53 11/25/2022 11:30:53 11/25/2022 11:30:53 Pending Labs Inlab 11/25/2022 11:45:03 11/25/2022 11:45:03 Meds Admin Complete 11/25/2022 11:49:22 11/25/2022 11:58:47 Discharge Complete 11/25/2022 11:49:49 11/25/2022 11:59:45 11/25/2022 11:59:45 Transfer Complete 11/25/2022 11:59:45 11/25/2022 11:59:45 11/25/2022 11:59:45 ADDRESS: [address] [facility] [id number] [facility] DOC NOTES: MEDICAL INFORMATION: Prescriptions Given: Medications to Continue with No Changes Other Medications naproxen (Naprosyn 500 mg Tab) 1 Tablets By Mouth 2 times a day. Refills: 0. naproxen (naproxen 500 mg Tab) 1 Tablets By Mouth 2 times a day. Take one tab by mouth two times a day. Refills: 0. PATIENT EDUCATION INFORMATION: Instructions: Pharyngitis, Tnio-yi-Qrfe Follow up: With: Address: When: MINAL NEWMAN [address], [address] [address] Business () In 3 days 11/28/2022 Comments: Follow-up with your primary care provider in 3 to 5 days. If symptoms worsen, do not improve, or new symptoms arise please report back to emergency department for further evaluation. DIAGNOSIS: Pharyngitis [facility] ED Note-Physicianon 11-26-19 23 ED Note-Physician Basic Information Time Seen: Stanley MUNOZ, Tavo Flowers 11/25/2022 11:26 Chief Complaint pt reports throbbing throat pain that started last night. Difficulty swallowing History of Present Illness 22-year-old female reports to the emergency department with chief complaint of throat pain. Reports that she has been having a sore throat since last night. Reports it was throbbing, and throughout the day it hurts to swallow. She states that it seems like it is worsening today. Reports that she has taken some Tylenol, without any improvement. Denies any coughing. Denies any ear pain, fevers or chills. States that she does give a history of frequent strep infection. Reports that she thinks it may be strep, but is not certain. Denies any recent sick contacts. Denies any allergies to medications. Review of Systems A 10 point review of systems is negative except as noted above. Medical and Surgical History: Reviewed and noted Social history: Lives at home Family History: Reviewed. Tobacco: Denies Physical Exam Vitals & Measurements T: 36.7 ?C(Oral) RR: 16 BP: 117/77 SpO2: 99% HT: 164 cm WT: 97.8 kg BMI: 36.36 General: The patient appears well and in no apparent distress. Patient is resting comfortably in chair. Afebrile Skin: Warm, dry, no pallor noted. Head: Normocephalic, atraumatic Neck: No JVD Eye: PERRLA, EOMI ENT: Moist mucus membranes. Pharynx erythematous, but no exudates are seen.. Bilateral TMs intact with no erythema or bulging Cardiovascular: Regular rate normal peripheral perfusion. Radial pulses +2 bilaterally Respiratory: No respiratory distress no accessory muscle use no obvious audible wheezing. Lung sounds clear to auscultation Chest Wall: no deformity Musculoskeletal: normal ROM, no deformity, no swelling GI: No obvious distention soft nontender nondistended no guarding rebounding or rigidity Neurological: A&O moves all extremities equal strength and symmetry Psychiatric: Cooperative and appropriate Medical Decision Making MEDICAL DECISION MAKING Number and Complexity of Problems Differential Diagnosis: [] [facility] Data External documents reviewed: [] My EKG interpretation: [] My CT interpretation: [] My X-ray interpretation: [] My Ultrasound interpretation: [] Decision rules/scores evaluated: [] Discussed with: [] Treatment and Disposition ED Course: 22-year-old female reports emergency department with chief complaint of throat pain. Reports started yesterday, has worsened into today. Reports she did take some Tylenol/ibuprofen for this, without much improvement. Reports hurts to swallow now. Reports recent strep infection, and she does get strep throat often. On physical exam, I do see some erythema in the throat, but there are no exudates. Rest of the exam of the patient is benign. She is afebrile. Due to her concerns, we did do a rapid strep test. Rapid strep test was negative for strep. Due to this, we will not treat with antibiotics at this time. Patient was given Decadron to help with throat pain. Discussed ibuprofen and Tylenol use at home. Discussed return precautions. Follow-up with your primary care provider in 3 to 5 days. If symptoms worsen, do not improve, or new symptoms arise please report back to emergency department for further evaluation. The patient was understanding and agreeable to plan moving forward. Shared decision making: [] Code status: [] Assessment/Plan Pharyngitis (J02.9: Acute pharyngitis, unspecified) Orders: dexamethasone, 10 mg = 2.5 mL, Injection, Oral, Once, Stop date 11/25/22 11:48:00 EDT, STAT, Start date 11/25/22 11:48:00 EDT, 11/25/22 11:48:00 EDT Group A Strep by PCR Rapid Strep w/rfx Medications Administered Given dexamethasone 4 mg/mL Inj 1 mL, 10 mg, Oral Disposition Plan Patient Discharge Condition Stable Discharge Disposition To home Discharge Prescription List Prescriptions No active prescription medications Follow-up With When Contact Information MINAL DELGADOCASI In 3 days 11/28/[address], [address] [place] [address]- Business (1) Additional Instructions: Follow-up with your primary care provider in 3 to 5 days. If symptoms worsen, do not improve, or new symptoms arise please report back to emergency department for further evaluation. Patient Education Pharyngitis, Llxs-zp-Cjsh Attestation Patient seen and evaluated by the physician administrative assistant. Attending physician was present in the emergency department and supervised care. This visit was performed by both the physician and an APC. I performed all aspects of the MDM as documented. This report was transcribed using voice recognition software. Every effort was made to ensure accuracy, however, inadvertently computerized radio installer automobile mistakes may be present. Appropriate healthcare PPE was used in evaluating this patient. The patient was placed in a mask. The healthcare provider was wearing mask, gloves, (more content not included)... [facility] Comment on above: Result Comment: Elec tronically Signed By: Tavo Angel PA-C\.br\Date and Time Signed: 11/25/22 14:06 EDT\.br\Electronically Co-Signed By: Satish Thao DO\.br\Date and Time Co-Signed: 11/25/22 14:23 EDT ED Patient Education Noteon 11-25-2022 ED Patient Education Note Infectious Disease Pharyngitis Pharyngitis is a sore throat (pharynx). This is when there is redness, pain, and swelling in your throat. Most of the time, this condition gets better on its own. In some cases, you may need medicine. What are the causes? ? An infection from a virus. ? An infection from bacteria. ? Allergies. What increases the risk? ? Being 5?24 years old. ? Being in crowded environments. These include: ? Daycares. ? Schools. ? Dormitories. ? Living in a place with cold temperatures outside. ? Having a weakened disease-fighting (immune) system. What are the signs or symptoms? Symptoms may vary depending on the cause. Common symptoms include: ? Sore throat. ? Tiredness (fatigue). ? Low-grade fever. ? Stuffy nose. ? Cough. ? Headache. Other symptoms may include: ? Glands in the neck (lymph nodes) that are swollen. ? Skin rashes. ? Film on the throat or tonsils. This can be caused by an infection from bacteria. ? Vomiting. ? Red, itchy eyes. ? Loss of appetite. ? Joint pain and muscle aches. ? Tonsils that are temporarily bigger than usual (enlarged). How is this treated? Many times, treatment is not needed. This condition usually gets better in 3?4 days without treatment. If the infection is caused by a bacteria, you may be need to take antibiotics. Follow these instructions at home: Medicines ? Take vrbz-xkk-kdqqtmf and prescription medicines only as told by your doctor. ? If you were prescribed an antibiotic medicine, take it as told by your doctor. Do not stop taking the antibiotic even if you start to feel better. ? Use throat lozenges or sprays to soothe your throat as told by your doctor. ? Children can get pharyngitis. Do not give your child aspirin. Managing pain To help with pain, try: ? Sipping warm liquids, such as: ? Broth. ? Herbal tea. ? Warm water. ? Eating or drinking cold or frozen liquids, such as frozen ice pops. ? Rinsing your mouth (gargle) with a salt water mixture 3?4 times a day or as needed. ? To make salt water, dissolve ??1 tsp (3?6 g) of salt in 1 cup (237 mL) of warm water. ? Do not swallow this mixture. ? Sucking on hard candy or throat lozenges. ? Putting a cool-mist humidifier in your bedroom at night to moisten the air. ? Sitting in the bathroom with the door closed for 5?10 minutes while you run hot water in the shower. General instructions ? Do not smoke or use any products that contain nicotine or tobacco. If you need help quitting, ask your doctor. ? Rest as told by your doctor. ? Drink enough fluid to keep your pee (urine) pale yellow. How is this prevented? ? Wash your hands often for at least 20 seconds with soap and water. If soap and water are not available, use hand jewelry setter. ? Do not touch your eyes, nose, or mouth with unwashed hands. Wash hands after touching these areas. ? Do not share cups or eating utensils. ? Avoid close contact with people who are sick. Contact a doctor if: ? You have large, tender lumps in your neck. ? You have a rash. ? You cough up green, yellow-brown, or bloody spit. Get help right away if: ? You have a stiff neck. ? You drool or cannot swallow liquids. ? You cannot drink or take medicines without vomiting. ? You have very bad pain that does not go away with medicine. ? You have problems breathing, and it is not from a stuffy nose. ? You have new pain and swelling in your knees, ankles, wrists, or elbows. These symptoms may be an emergency. Get help right away. Call your local emergency services (911 in the [place] ? Do not wait to see if the symptoms will go away. ? Do not drive yourself to the hospital. Summary ? Pharyngitis is a sore throat (pharynx). This is when there is redness, pain, and swelling in your throat. ? Most of the time, pharyngitis gets better on its own. Sometimes, you may need medicine. ? If you were prescribed an antibiotic medicine, take it as told by your doctor. Do not stop taking the antibiotic even if you start to feel better. This information is not intended to replace advice given to you by your health care provider. Make sure you discuss any questions you have with your health care provider. Document Revised: 08/13/2021 Document Reviewed: 08/13/2021 [employer] Patient Education ? 2022 [employer] [facility] ED Patient Summaryon 023 ED Patient Summary [address] [address] Patient Discharge Instructions Person Information Name: OSMAN COHEN Age: 22 Years Arrival Date: 11/25/2022 11:16:53 Discharge Diagnosis: Pharyngitis Primary Care Physician: MINAL NEWMAN DO Provider Information Primary Provider: Satish Thao DO Advanced Brand Lead:None The exam and treatment you received in the Emergency Department were for an urgent problem and are not intended as complete care. It is important that you follow up with a doctor, nurse practitioner, or physician?s administrative assistant for ongoing care. If your symptoms become worse or you do not improve as expected and you are unable to reach your usual health care provider, you should return to the Emergency Department. We are available 24 hours a day. OSMAN COHEN has been given the following list of patient education materials, prescriptions and follow-up instructions: Follow-up Instructions: With: Address: When: MINAL NEWMAN [address], [place] [id number] Business (1) In 3 days 11/28/2022 Comments: Follow-up with your primary care provider in 3 to 5 days. If symptoms worsen, do not improve, or new symptoms arise please report back to emergency department for further evaluation. In the event that this physician does not participate in your insurance network, please consult with your insurance company to find a nearby participating provider. Patient Education Materials: Pharyngitis, Heuq-nt-Mhjb A MESSAGE TO ALL PATIENTS REGARDING OPIOIDS PRESCRIPTION OPIOIDS: WHAT YOU NEED TO KNOW Prescription opioids can be used to help relieve uusqnbbx-si-jvbbpl pain and are often prescribed following a surgery or injury, or for certain health conditions. These medications can be an important part of the treatment but also come with serious risks. It is important to work with your healthcare provider to make sure you are getting the safest, most effective care. WHAT ARE THE RISKS AND SIDE EFFECTS OF OPIOID USE? Prescription opioids carry serious risks of addiction and overdose, especially with prolonged use. An opioid overdose, often marked by slowed breathing, can cause sudden . The use of prescription opioids can have a number of side effects as well, even when taken as directed: ? Tolerance?meaning you might need to take more of the medication for the same pain relief ? Physical dependence?meaning you have symptoms of withdrawal when a medication is stopped ? Increased sensitivity to pain ? Constipation ? Nausea, vomiting, and dry mouth ? Sleepiness and dizziness ? Confusion ? Depression ? Low levels of testosterone that can result in lower sex drive, energy, and strength ? Itching and sweating RISKS ARE GREATER WITH: ? History of drug misuse, substance use disorder, or overdose ? Mental health conditions (such as depression or anxiety) ? Sleep apnea ? Older age (65 years and older) ? Avoid alcohol while taking prescription opioids. Also, unless specifically advised by your health care provider, medications to avoid include: ? Benzodiazepines (such as Xanax or Valium) ? Muscle relaxants (such as Soma or Flexeril) ? Hypnotics (such as Ambien or Lunesta) ? Other prescription opioids KNOW YOUR OPTIONS Talk to your health care provider about ways to manage your pain that don?t involve prescription opioids. Some of these options may actually work better and have fewer risks and side effects. Options may include: ? Pain relievers such as acetaminophen, ibuprofen, and naproxen ? Some medication that are also used for depression or seizures ? Physical therapy and exercise ? Cognitive behavioral therapy, a psychological, goal-directed approach, in which patients learn how to modify physical, behavioral, and emotional triggers of pain and stress. IF YOU ARE PRESCRIBED OPIOIDS FOR PAIN: ? Never take opioids in greater amounts or more often than prescribed. ? Follow up with your primary health care provider. o Work together to create a plan on how to manage your pain. o Talk about ways to help manage your pain that don?t involve prescription opioids. o Talk about any and all concerns and side effects. ? Help prevent misuse and abuse o Never sell or share prescription opioids. o Never use another person?s prescription opioids. ? Store prescription opioids in a secure place and out of reach of others (this may include visitors, children, friends, and family). ? Safely dispose of unused prescription opioids: Find your community drug take-back program or your pharmacy mail-back program, or flush them down the toilet, following guidance from the Food and Drug Administration (www.fda.gov/Drugs/ ResourcesForYou). ? Visit www.cdc.gov/drugove rdose to learn about the risks of opioids abuse and overdose. ? If you (more content not included)... [facility] Grp A Strp PCRon 11-25-2022 Group A Strep Negative [facility] Comment on above: Order Comment: Order Added on by Discern Rule. Result Comment: Test ing performed using DNA amplification. Performed By: #### 1 [id number] ####[facility] [id number] [place] [address] Grp A Strp Intrl Ctrl Pass Normal [facility] Comment on above: Order Comment: Order Added on by Discern Rule. Performed By: #### 1 [id number] ####[facility] [address] [place] [address] MICRO OTHER TESTSOrdered By: Zeinab Renner on 11-25-2022 S. pyogenes Ag IA.rapid Ql (Throat) Negative (11/25/22 11:28 AM) Normal Negative [facility] [place] Sero Rapid Strep w/rfxon 11-26-19 S. pyogenes Ag IA.rapid Ql (Throat) Negative Normal Negative [facility] Comment on above: Performed By: #### 1 [id number] ####[facility] [address] [place] [address] C Urineon 11-17-2022 Bacteria identified Cx Nom (U) Microbiology PROCEDURE: Urine Culture [R1] SOURCE: U CleanCatch BODY SITE: COLLECTED DATE/TIME: 11/14/2022 23:22 EDT RECEIVED DATE/TIME: 11/14/2022 23:50 EDT START DATE/TIME: 11/14/2022 23:50 EDT FREE TEXT SOURCE: Antonia Singh, Tim Knight M.D., Tim Feng FINAL REPORTS Final Report [] Verified Date/Time: 11/17/2022 10:54 EDT 30,000 cfu/ml Escherichia coli SUSCEPTIBILITY RESULTS LEGEND: S=Susceptible, N/R=Not Reported, Blank=Data not available, or drug not advisable or tested, I=Intermediate, ESBL=Extended spectrum beta-lactamase, R=Resistant, TFG=Thymidine-depen dent strain, RENETTA=Beta-lactamase positive, SEMAJ=mcg/m;(mg/L), S*=Predicted susceptible interp, R*=Predicted resistant interp EC Antibiotic SEMAJ Dilutn SEMAJ Interp Amikacin <=16 S Ampicillin >16 R Ampicillin/ 16/8 I Sulbactam Aztreonam <=4 S Cefazolin <=2 S Cefepime <=2 S Cefoxitin <=8 S Ceftazidime <=1 S Ceftazidime/ <=8 S Avibactam Ceftriaxone <=1 S Ciprofloxacin <=1 S Ertapenem <=0.5 S Gentamicin >8 R Levofloxacin <=2 S Meropenem <=1 S Nitrofurantoin <=32 S Piperacillin/ <=16 S Tazobactam Tetracycline >8 R Tigecycline <=2 S Tobramycin >8 R Trimethoprim/ >2/38 R Sulfa Performing Locations R1: This test was performed at: [facility], [address] [place] [address], [id number], [facility] Comment on above: Performed By: #### 2 [id number] ####[facility] [address] [place] [address] Discharge Instructionson Discharge Instructions [id number] 80#1.00CD:127 [facility] Prescriptions/Work Noteson 0 11-15-2022 Prescriptions/Work Notes [id number] 64#1.00CD:127 [facility] Consent for Treatmenton 10-29 Consent for Treatment [id number] 72#1.00CD:127 [facility] ED Clinical Summaryon 2022 ED Clinical Summary [address] [address] ED Clinical Summary Person Information Name: OSMAN COHEN [place] Age: 21 Years : 2000 Sex: Female Language: Georgian PCP: MINAL NEWMAN DO Marital Status: Single Visit Id: Visit Reason: Urinary frequency; Nausea; Dysuria; ABD CRAMPING, PAINFUL URINATION Speciality: Acuity: 4 Enc Type: Emergency Med Service: Emergency Arrival: 11/14/2022 23:02:06 Discharge: 11/14/2022 23:53:22 LOS: 000 00:51 Checkin: 11/14/2022 23:02:06 Checkout: 11/14/2022 23:53:22 Dispo Type: Home (Routine DC) EVENTS: Event Name Event Status Request Date/Time Start Date/Time Complete Date/Time Arrive Complete 11/14/2022 23:02:06 11/14/2022 23:02:06 11/14/2022 23:02:06 Document Home Meds Request 11/14/2022 23:02:06 Triage Complete 11/14/2022 23:02:06 11/14/2022 23:16:02 11/14/2022 23:16:02 Registration Complete 11/14/2022 23:04:47 11/14/2022 23:04:47 11/14/2022 23:04:47 Reg Complete Request 11/14/2022 23:04:47 Reg Bed Request Complete 11/14/2022 23:04:47 11/14/2022 23:04:47 11/14/2022 23:04:47 Bed Assign Complete 11/14/2022 23:06:28 11/14/2022 23:06:28 11/14/2022 23:06:28 Dr Exam Complete 11/14/2022 23:06:28 11/14/2022 23:14:23 11/14/2022 23:14:23 RN Exam Complete 11/14/2022 23:06:28 11/14/2022 23:29:22 11/14/2022 23:29:22 Registration Request 11/14/2022 23:14:23 Pending Labs Complete 11/14/2022 23:14:28 11/14/2022 23:31:45 Lab Complete 11/14/2022 23:14:28 11/14/2022 23:31:45 Urine Collect Complete 11/14/2022 23:14:28 11/14/2022 23:31:45 Pending Labs Inlab 11/14/2022 23:25:08 11/14/2022 23:25:08 Lab Inlab 11/14/2022 23:25:08 11/14/2022 23:25:08 Meds Admin Complete 11/14/2022 23:44:19 11/14/2022 23:47:32 Discharge Complete 11/14/2022 23:47:16 11/14/2022 23:53:31 11/14/2022 23:53:31 Transfer Complete 11/14/2022 23:53:31 11/14/2022 23:53:31 11/14/2022 23:53:31 ADDRESS: [place] [id number] PHYS DOC NOTES: MEDICAL INFORMATION: Prescriptions Given: New Medications Printed Prescriptions cephalexin (Keflex 500 mg Cap) 1 Capsules By Mouth every 6 hours for 7 Days. Refills: 0. phenazopyridine (Pyridium 200 mg Tab) 1 Tablets By Mouth 3 times a day for 2 Days. Refills: 0. Medications to Continue with No Changes Other Medications naproxen (Naprosyn 500 mg Tab) 1 Tablets By Mouth 2 times a day. Refills: 0. naproxen (naproxen 500 mg Tab) 1 Tablets By Mouth 2 times a day. Take one tab by mouth two times a day. Refills: 0. prochlorperazine (Compazine 10 mg oral tablet) 1 Tablets By Mouth 3 times a day for 7 Days. Refills: 0. PATIENT EDUCATION INFORMATION: Instructions: Urinary Tract Infection, Adult Follow up: With: Address: When: [facility] [address] [facility] [address] [address] [facility] ([place] In 3 days 11/17/2022 Comments: Return to the emergency room if your symptoms get worse, vomiting, fever or any new symptoms DIAGNOSIS: 1:Urinary tract infection [facility] ED Note-Physicianon 11-15-19 ED Note-Physician Basic Information Time Seen: Tim Knight M.D. 11/14/2022 23:14 Chief Complaint burning with urination today. nausea. denies fever. History of Present Illness The patient is a 21-year-old female who presented to the emergency room with urinary symptoms. The patient sent since last night she has been having burning and frequency with urination. She denies any blood in urine. She reports some nausea but no vomiting. The patient is complaining of lower abdominal cramping. The patient denies any fever, denies any chills. She denies any other associated symptoms. Review of Systems Additional ROS info: Except as noted in the above Review of Systems and in the History of Present Illness all other systems have been reviewed and are negative or noncontributory. Physical Exam Vitals & Measurements T: 36.8 ?C(Oral) HR: 66(Peripheral) RR: 16 BP: 128/82 SpO2: 97% HT: 164 cm WT: 97.8 kg BMI: 36.36 General: alert, no acute distress Skin: warm, dry Head: no trauma, normocephalic Neck: Trachea midline Eye: normal conjunctiva, sclera clear Cardiovascular: regular rate and rhythm Respiratory: Lungs CTA, respirations non labored, breath sounds equal Gastrointestinal: soft, non distended, mild suprapubic tenderness, no guarding Extremities: no deformity, no trauma Neurological: Alert and oriented, speech normal, no focal neuro deficits Psychiatric: cooperative, affect appropriate for age, Medical Decision Making MEDICAL DECISION MAKING Number and Complexity of Problems Differential Diagnosis: [] [facility] Data External documents reviewed: [] My EKG interpretation: [] My CT interpretation: [] My X-ray interpretation: [] My Ultrasound interpretation: [] Decision rules/scores evaluated: [] Discussed with: [] Treatment and Disposition ED Course: The patient presented with urinary symptoms. She does have urinary tract infection. is negative. The patient was started on Pyridium and Keflex. Will discharge patient home with prescription for Pyridium and Keflex. She will follow-up with her primary care. She was instructed to return to the emergency room if her symptoms get worse, vomiting, fever or any new symptoms. Shared decision making: [] Code status: [] Assessment/Plan 1. Urinary tract infection (N39.0: Urinary tract infection, site not specified) Orders: cephalexin, 500 mg = 1 cap(s), Cap, Oral, Once, Stop date 11/14/22 23:44:00 EDT, STAT, Start date 11/14/22 23:44:00 EDT, 11/14/22 23:44:00 EDT cephalexin, 500 mg = 1 cap(s), Oral, q6hr, X 7 day(s), # 28 cap(s), Refills(s) 0 phenazopyridine, 200 mg = 1 tab(s), Oral, TID, X 2 day(s), # 6 tab(s), Refills(s) 0 phenazopyridine, 200 mg = 2 tab(s), Tab, Oral, Once, Stop date 11/14/22 23:44:00 EDT, STAT, Start date 11/14/22 23:44:00 EDT, 11/14/22 23:44:00 EDT U Beta Hcg Qual UA With Cult Reflex Urine Culture Disposition Plan Patient Discharge Condition Stable Discharge Disposition Discharged home Discharge Prescription List Prescriptions Keflex 500 mg Cap, 500 mg= 1 cap(s), Oral, q6hr Pyridium 200 mg Tab, 200 mg= 1 tab(s), Oral, TID Follow-up With When Contact Information MINAL NEWMAN In 3 days 11/17/[address], [address] [place] [address]- [facility] (1) Additional Instructions: Return to the emergency room if your symptoms get worse, vomiting, fever or any new symptoms Patient Education Urinary Tract Infection, Adult Problem List/Past Medical History Ongoing No qualifying data Historical Migraine Medications Inpatient Keflex 500 mg Cap, 500 mg= 1 cap(s), Oral, Once Pyridium 100 mg Tab, 200 mg= 2 tab(s), Oral, Once Home Compazine 10 mg oral tablet, 1 tab(s), Oral, TID Keflex 500 mg Cap, 500 mg= 1 cap(s), Oral, q6hr Naprosyn 500 mg Tab, 500 mg= 1 tab(s), Oral, BID naproxen 500 mg Tab, 500 mg= 1 tab(s), Oral, BID Pyridium 200 mg Tab, 200 mg= 1 tab(s), Oral, TID Allergies No Known Allergies Social History Alcohol - Denies Alcohol Use, 10/22/2022 Substance Abuse - Denies Substance Abuse, 10/22/2022 Tobacco - Denies Tobacco Use, 10/22/2022 Lab Results UA Spec Desc: Clean Catch (11/14/22 23:22:00) UA Color: Orange2 Abnormal (11/14/22 23:22:00) UA Clarity: SL CLOUDY (11/14/22 23:22:00) UA Spec Grav: 1.025 (11/14/22 23:22:00) UA pH: 6.5 (11/14/22 23:22:00) UA Protein: 3+ Abnormal (11/14/22 23:22:00) UA Glucose: 1+ Abnormal (11/14/22 23:22:00) UA Ketones: 1+ Abnormal (11/14/22 23:22:00) UA Bili: NEGATIVE1 (11/14/22 23:22:00) UA Blood: 2+ Abnormal (11/14/22 23:22:00) UA Nitrite: Positive1 Abnormal (11/14/22 23:22:00) UA Urobilinogen: >=8.0 Abnormal (11/14/22 23:22:00) UA Leuk Est: 2+ Abnormal (11/14/22 23:22:00) UA RBC: 4-20 (11/14/22 23:22:00) UA Squam Epithelial: 3-4 (11/14/22 23:22:00) UA WBC: 16-25 Abnormal (11/14/22 23:22:00) UA Bacteria: 1+ Abnormal (11/14/22 23:22:00) U beta hCG Ql: Negative (11/14/ (more content not included)... [facility] Comment on above: Result Comment: Elec tronically Signed By: Tim Knight M.D.\.br\Date and Time Signed: 11/14/22 23:49 EDT ED Patient Education Noteon 11-14-2022 ED Patient Education Note Obstetrics and Gynecology Urinary Tract Infection, Adult A urinary tract infection (UTI) is an infection of any part of the urinary tract. The urinary tract includes the kidneys, ureters, bladder, and urethra. These organs make, store, and get rid of urine in the body. An upper UTI affects the ureters and kidneys. A lower UTI affects the bladder and urethra. What are the causes? Most urinary tract infections are caused by bacteria in your genital area around your urethra, where urine leaves your body. These bacteria grow and cause inflammation of your urinary tract. What increases the risk? You are more likely to develop this condition if: ? You have a urinary catheter that stays in place. ? You are not able to control when you urinate or have a bowel movement (incontinence). ? You are female and you: ? Use a spermicide or diaphragm for control. ? Have low estrogen levels. ? Are . ? You have certain genes that increase your risk. ? You are sexually active. ? You take antibiotic medicines. ? You have a condition that causes your flow of urine to slow down, such as: ? An enlarged prostate, if you are male. ? Blockage in your urethra. ? A kidney stone. ? A nerve condition that affects your bladder control (neurogenic bladder). ? Not getting enough to drink, or not urinating often. ? You have certain medical conditions, such as: ? Diabetes. ? A weak disease-fighting system (immunesystem). ? Sickle cell disease. ? Gout. ? Spinal cord injury. What are the signs or symptoms? Symptoms of this condition include: ? Needing to urinate right away (urgency). ? Frequent urination. This may include small amounts of urine each time you urinate. ? Pain or burning with urination. ? Blood in the urine. ? Urine that smells bad or unusual. ? Trouble urinating. ? Cloudy urine. ? Vaginal discharge, if you are female. ? Pain in the abdomen or the lower back. You may also have: ? Vomiting or a decreased appetite. ? Confusion. ? Irritability or tiredness. ? A fever or chills. ? Diarrhea. The first symptom in older adults may be confusion. In some cases, they may not have any symptoms until the infection has worsened. How is this diagnosed? This condition is diagnosed based on your medical history and a physical exam. You may also have other tests, including: ? Urine tests. ? Blood tests. ? Tests for STIs (sexually transmitted infections). If you have had more than one UTI, a cystoscopy or imaging studies may be done to determine the cause of the infections. How is this treated? Treatment for this condition includes: ? Antibiotic medicine. ? Qejv-mhm-icpqcgq medicines to treat discomfort. ? Drinking enough water to stay hydrated. If you have frequent infections or have other conditions such as a kidney stone, you may need to see a health care provider who specializes in the urinary tract (urologist). In rare cases, urinary tract infections can cause sepsis. Sepsis is a life-threatening condition that occurs when the body responds to an infection. Sepsis is treated in the hospital with IV antibiotics, fluids, and other medicines. Follow these instructions at home: Medicines ? Take jqhe-qpc-ggnqqle and prescription medicines only as told by your health care provider. ? If you were prescribed an antibiotic medicine, take it as told by your health care provider. Do not stop using the antibiotic even if you start to feel better. General instructions ? Make sure you: ? Empty your bladder often and completely. Do not hold urine for long periods of time. ? Empty your bladder after sex. ? Wipe from front to back after urinating or having a bowel movement if you are female. Use each tissue only one time when you wipe. ? Drink enough fluid to keep your urine pale yellow. ? Keep all follow-up visits. This is important. Contact a health care provider if: ? Your symptoms do not get better after 1?2 days. ? Your symptoms go away and then return. Get help right away if: ? You have severe pain in your back or your lower abdomen. ? You have a fever or chills. ? You have nausea or vomiting. Summary ? A urinary tract infection (UTI) is an infection of any part of the urinary tract, which includes the kidneys, ureters, bladder, and urethra. ? Most urinary tract infections are caused by bacteria in your genital area. ? Treatment for this condition often includes antibiotic medicines. ? If you were prescribed an antibiotic medicine, take it as told by your health care provider. Do not stop using the antibiotic even if you start to feel better. ? Keep all follow-up visits. This is important. This information is not intended to replace advice given to you by your health care provider. Make sure you discuss any questions you have with your health care provider. Document Revised: 12/27/2020 Document Revie (more content not included)... [facility] ED Patient Summaryon 023 ED Patient Summary [address] [address] Patient Discharge Instructions Person Information Name: OSMAN COHEN Age: 21 Years Arrival Date: 11/14/2022 23:02:06 Discharge Diagnosis: 1:Urinary tract infection Primary Care Physician: MINAL NEWMAN DO Provider Information Primary Provider: Tim Knight M.D. Advanced Brand Lead:None The exam and treatment you received in the Emergency Department were for an urgent problem and are not intended as complete care. It is important that you follow up with a doctor, nurse practitioner, or physician?s administrative assistant for ongoing care. If your symptoms become worse or you do not improve as expected and you are unable to reach your usual health care provider, you should return to the Emergency Department. We are available 24 hours a day. OSMAN COHEN has been given the following list of patient education materials, prescriptions and follow-up instructions: Follow-up Instructions: With: Address: When: MINAL DELGADOGABRIELANIK [address] [facility], [facility] [address] [id number] [facility] () In 3 days 11/17/2022 Comments: Return to the emergency room if your symptoms get worse, vomiting, fever or any new symptoms In the event that this physician does not participate in your insurance network, please consult with your insurance company to find a nearby participating provider. Patient Education Materials: Urinary Tract Infection, Adult A MESSAGE TO ALL PATIENTS REGARDING OPIOIDS PRESCRIPTION OPIOIDS: WHAT YOU NEED TO KNOW Prescription opioids can be used to help relieve yctcxmbx-pc-fnogco pain and are often prescribed following a surgery or injury, or for certain health conditions. These medications can be an important part of the treatment but also come with serious risks. It is important to work with your healthcare provider to make sure you are getting the safest, most effective care. WHAT ARE THE RISKS AND SIDE EFFECTS OF OPIOID USE? Prescription opioids carry serious risks of addiction and overdose, especially with prolonged use. An opioid overdose, often marked by slowed breathing, can cause sudden . The use of prescription opioids can have a number of side effects as well, even when taken as directed: ? Tolerance?meaning you might need to take more of the medication for the same pain relief ? Physical dependence?meaning you have symptoms of withdrawal when a medication is stopped ? Increased sensitivity to pain ? Constipation ? Nausea, vomiting, and dry mouth ? Sleepiness and dizziness ? Confusion ? Depression ? Low levels of testosterone that can result in lower sex drive, energy, and strength ? Itching and sweating RISKS ARE GREATER WITH: ? History of drug misuse, substance use disorder, or overdose ? Mental health conditions (such as depression or anxiety) ? Sleep apnea ? Older age (65 years and older) ? Avoid alcohol while taking prescription opioids. Also, unless specifically advised by your health care provider, medications to avoid include: ? Benzodiazepines (such as Xanax or Valium) ? Muscle relaxants (such as Soma or Flexeril) ? Hypnotics (such as Ambien or Lunesta) ? Other prescription opioids KNOW YOUR OPTIONS Talk to your health care provider about ways to manage your pain that don?t involve prescription opioids. Some of these options may actually work better and have fewer risks and side effects. Options may include: ? Pain relievers such as acetaminophen, ibuprofen, and naproxen ? Some medication that are also used for depression or seizures ? Physical therapy and exercise ? Cognitive behavioral therapy, a psychological, goal-directed approach, in which patients learn how to modify physical, behavioral, and emotional triggers of pain and stress. IF YOU ARE PRESCRIBED OPIOIDS FOR PAIN: ? Never take opioids in greater amounts or more often than prescribed. ? Follow up with your primary health care provider. o Work together to create a plan on how to manage your pain. o Talk about ways to help manage your pain that don?t involve prescription opioids. o Talk about any and all concerns and side effects. ? Help prevent misuse and abuse o Never sell or share prescription opioids. o Never use another person?s prescription opioids. ? Store prescription opioids in a secure place and out of reach of others (this may include visitors, children, friends, and family). ? Safely dispose of unused prescription opioids: Find your community drug take-back program or your pharmacy mail-back program, or flush them down the toilet, following guidance from the Food and Drug Administration (www.fda.gov/Drugs/ ResourcesForYou). ? Visit www.cdc.gov/drugove rdose to learn about the risks of opioids abuse and overdose. ? If you believe you may be struggling with addiction, tell your health ca (more content not included)... [facility] SEROLOGYOrdered By: Jamison garvin on 11-14-2022 HCG.beta subunit (U) [Moles/Vol] Negative Normal [facility] Sero U BetaHcg Qualon 11-14-2022 HCG.beta subunit (U) [Moles/Vol] Negative [facility] Comment on above: Performed By: #### 2 [id number], [id number], [id number] ####[facility] [address] [place] [address] UA With Cult Reflexon 2022 Bacteria LM Ql (Urine sed) 1+ /HPF Abnormal Trace [facility] Comment on above: Performed By: #### 2 [id number], [id number], [id number] ####[facility] [address] [place] [address] Bilirubin Ql (U) Negative Normal Negative [facility] Comment on above: Performed By: #### 2 477703, [id number], [id number] ####[facility] [address] [place], [place] [id number] Clarity (U) SL CLOUDY Invalid Interpretation Code [facility] Comment on above: Performed By: #### 2 140340, [id number], [id number] ####[facility] [address] [place] [address] Color (U) ORANGE Abnormal Yellow [facility] Comment on above: Performed By: #### 2 716145, [id number], [id number] ####[facility] [address] [place] [address] Epithelial cells.squamous LM.HPF (Urine sed) [#/Area] 3-4 Normal 0-2 [facility] Comment on above: Performed By: #### 2 379689, [id number], [id number] ####[facility] [address] [place] [address] Glucose Test strip (U) [Mass/Vol] 1+ Abnormal Negative [facility] Comment on above: Performed By: #### 2 853774, [id number], [id number] ####[facility] [address] [place] [address] Hemoglobin Ql (U) 2+ Abnormal Negative [facility] Comment on above: Performed By: #### 2 374615, [id number], [id number] ####[facility] [address] [place] [address] Ketones (U) [Mass/Vol] 1+ Abnormal Negative [facility] Comment on above: Performed By: #### 2 251808, [id number], [id number] ####[address] [address] [place].plasma/[place].R BC (Bld) [Mass ratio] 4-20 Normal 0-3 [facility] Comment on above: Performed By: #### 2 512191, [id number], [id number] ####[address] [address] Nitrite Ql (U) Positive Abnormal Negative [facility] Comment on above: Performed By: #### 2 310448, [id number], [id number] ####[address] [address] pH (U) 6.5 [pH] Invalid Interpretation Code 5.0-9.0 [facility] Comment on above: Performed By: #### 2 141196, [id number], [id number] ####[address] [address] Protein (U) [Mass/Vol] 3+ Abnormal Negative [facility] Comment on above: Performed By: #### 2 632991, [id number], [id number] ####[address] [address] Specific gravity (U) [Rel density] 1.025 Invalid Interpretation Code 1.005-1.030 [facility] Comment on above: Performed By: #### 2 104819, 23902862, [id number] ####[facility] [address] [place] [address] Type of Urine collection method Clean Catch Normal [facility] Comment on above: Performed By: #### 2 307471, [id number], [id number] ####[facility] [address] [place] [address] Urobilinogen Qn (U) >=8.0 Abnormal 0.0-1.0 [facility] Comment on above: Performed By: #### 2 782854, [id number], [id number] ####[facility] [address] [place] [address] WBC Auto Ql (U) 2+ Abnormal Negative [facility] Comment on above: Performed By: #### 2 941539, [id number], [id number] ####[facility] [address] [place] [address] WBC LM.HPF (Urine sed) [#/Area] 16-25 Abnormal 0-5 [facility] Comment on above: Performed By: #### 2 368501, [id number], [id number] ####[facility] [address] [place] [address] URINALYSISOrdered By: Jamison Daley on 11-14-2022 Bacteria LM Ql (Urine sed) 1+ /HPF Invalid Interpretation Code Trace/HPF FT UA Auto SS Bilirubin Ql (U) Negative (11/14/22 11:22 PM) Normal Negative [facility] UA Auto SS Clarity (U) SL CLOUDY Invalid Interpretation Code [facility] UA Auto SS Color (U) [place] *ABN* (11/14/22 11:22 PM) Invalid Interpretation Code Yellow [facility] UA Auto SS Epithelial cells.squamous LM.HPF (Urine sed) [#/Area] 3-4 /HPF Normal 0-2/HPF [facility] UA Aut o SS Glucose Test strip (U) [Mass/Vol] 1+ *ABN* (11/14/22 11:22 PM) Invalid Interpretation Code Negative [facility] UA Auto SS Hemoglobin Ql (U) 2+ *ABN* (11/14/22 11:22 PM) Invalid Interpretation Code Negative [facility] UA Auto SS Ketones (U) [Mass/Vol] 1+ *ABN* (11/14/22 11:22 PM) Invalid Interpretation Code Negative [facility] UA Auto SS [place].plasma/[place].R BC (Bld) [Mass ratio] 4-20 /HPF Normal 0-3/HPF [facility] UA Au to SS Nitrite Ql (U) Positive *ABN* (11/14/22 11:22 PM) Invalid Interpretation Code Negative [facility] UA Auto SS pH (U) 6.5 *NA* (11/14/22 11:22 PM) Invalid Interpretation Code 5.0 - 9.0 [facility] UA Auto SS Protein (U) [Mass/Vol] 3+ *ABN* (11/14/22 11:22 PM) Invalid Interpretation Code Negative [facility] UA Auto SS Specific gravity (U) [Rel density] 1.025 *NA* (11/14/22 11:22 PM) Invalid Interpretation Code 1.005 - 1.030 [facility] UA Auto SS UA Spec Desc Clean Catch (11/14/22 11:22 PM) Normal [facility] UA Auto SS Urobilinogen Qn (U) {Enrique'U}/dL Invalid Interpretation Code 0.0 - 1.0 EU/dL [facility] UA Auto SS WBC Auto Ql (U) 2+ *ABN* (11/14/22 11:22 PM) Invalid Interpretation Code Negative [facility] UA Auto SS WBC LM.HPF (Urine sed) [#/Area] 16-25 /HPF Invalid Interpretation Code 0-5/HPF [facility] UA Auto SS Consent for Treatmenton 10-29 Consent for Treatment [id number] 11#1.00CD:127 [facility] Discharge Instructionson Discharge Instructions [id number] 96#1.00CD:127 [facility] ED Clinical Summaryon 2022 ED Clinical Summary [place] [id number] ED Clinical Summary Person Information Name: OSMAN COHEN/Arturo_Jean-Paul Age: 21 Years : 2000 Sex: Female Language: Georgian PCP: NONE, XXXX Marital Status: Single Visit Id: Visit Reason: Vomiting; Nausea; Headache; HEADACHE, VOMITING Speciality: Acuity: 3 Enc Type: Emergency Med Service: Emergency Arrival: 11/09/2022 05:13:42 Discharge: 11/09/2022 07:35:58 LOS: 000 02:22 Checkin: 11/09/2022 05:13:42 Checkout: 11/09/2022 07:35:58 Dispo Type: Home (Routine DC) EVENTS: Event Name Event Status Request Date/Time Start Date/Time Complete Date/Time Arrive Complete 11/09/2022 05:13:42 11/09/2022 05:13:42 11/09/2022 05:13:42 Document Home Meds Request 11/09/2022 05:13:42 Triage Complete 11/09/2022 05:13:42 11/09/2022 05:19:13 11/09/2022 05:19:13 Registration Complete 11/09/2022 05:18:37 11/09/2022 05:18:37 11/09/2022 05:18:37 Reg Complete Request 11/09/2022 05:18:37 Reg Bed Request Complete 11/09/2022 05:18:37 11/09/2022 05:18:37 11/09/2022 05:18:37 Bed Assign Complete 11/09/2022 05:23:55 11/09/2022 05:23:55 11/09/2022 05:23:55 Dr Exam Complete 11/09/2022 05:23:55 11/09/2022 05:24:00 11/09/2022 05:24:00 RN Exam Complete 11/09/2022 05:23:55 11/09/2022 05:51:34 11/09/2022 05:51:34 Registration Request 11/09/2022 05:24:00 Meds Admin Complete 11/09/2022 05:48:34 11/09/2022 06:02:48 Dr Exam Complete 11/09/2022 06:58:29 11/09/2022 06:58:29 11/09/2022 06:58:29 Discharge Complete 11/09/2022 07:25:52 11/09/2022 07:36:04 11/09/2022 07:36:04 Transfer Complete 11/09/2022 07:36:04 11/09/2022 07:36:04 11/09/2022 07:36:04 ADDRESS: [place] [facility] [id number] [facility] DOC NOTES: Addendum by Gus Mcgowan DO on November 09, 2022 07:28:50 EDT MEDICAL INFORMATION: Prescriptions Given: New Medications Printed Prescriptions prochlorperazine (Compazine 10 mg oral tablet) 1 Tablets By Mouth 3 times a day for 7 Days. Refills: 0. Medications to Continue Taking That Have Changed Printed Prescriptions START: naproxen (naproxen 500 mg Tab) 1 Tablets By Mouth 2 times a day. Take one tab by mouth two times a day. Refills: 0. Other Medications START: naproxen (Naprosyn 500 mg Tab) 1 Tablets By Mouth 2 times a day. Refills: 0. PATIENT EDUCATION INFORMATION: Instructions: Follow up: With: Address: When: Charisse Melendez [address] [facility] [address] [place] [address] [facility] () In 3 days 11/12/2022 With: [facility]: [facility] [place] [facility] DIAGNOSIS: Acute headache [facility] ED Note-Nursingon 11-09-2022 ED Note-Nursing Pt states she has a hx of migraines and states she is vomiting due to pain. Upon assessment pt did vomit. [facility] ED Note-Physicianon 11-10-19 ED Note-Physician Basic Information Time Seen: Troy Treadwell DO 11/09/2022 05:24 Chief Complaint complains of frontal headache this am. nausea and vomiting. taking tylenol without relief. History of Present Illness HPI: Patient is a 21-year-old female with past medical history of migraines who presents the ED for headache. Patient states that she has a history of migraines and she has had 1 for the past 2 hours. She states that it is mostly frontal in nature which is consistent with her previous migraine headaches. She states this is not the worst headache she has ever had. She does have associated nausea and vomiting. She tried taking Tylenol but vomited afterwards. She denies any fever or chills. She denies neck or back pain. She denies any vision changes, numbness, weakness. ROS: Pertinent review of systems conducted and is negative except as noted above. Physical exam: General: nontoxic appearing and in no distress HEENT: Mucous membranes moist Neuro: awake and alert. Cranial nerves II through XII are intact. Gross motor and station all 4 extremities are intact. Neck: supple, trachea midline. Range of motion of the cervical spine is intact and she has no meningismus. Card: Heart regular rate and rhythm no murmur Resp: Lungs clear to auscultation no wheeze or rhonchi Physical Exam Vitals & Measurements T: 36.6 ?C(Oral) HR: 81(Peripheral) RR: 16 BP: 124/70 SpO2: 98% HT: 164 cm WT: 97.1 kg BMI: 36.1 Medical Decision Making MEDICAL DECISION MAKING Number and Complexity of Problems Differential Diagnosis: [] [facility] Data External documents reviewed: N/A My EKG interpretation: Noted in chart if applicable My CT interpretation: N/A My X-ray interpretation: Noted in chart if applicable My Ultrasound interpretation: N/A Decision rules/scores evaluated: N/A Discussed with: N/A Treatment and Disposition ED Course: Patient is nontoxic-appearing and in no distress. She is neurologically intact on my exam. She has a history of similar migraines and this is not the worst headache she has ever had. We will give her IV fluids as well as Toradol, Zofran, and magnesium. Patient signed out to the oncoming physician pending reevaluation. Shared decision making: As above Code status: N/A Assessment/Plan Acute headache (R51.9: Headache, unspecified) Orders: ketorolac, 15 mg = 1 mL, Injection, IV Push, Once, Stop date 11/09/22 5:47:00 EDT, STAT, Start date 11/09/22 5:47:00 EDT, 11/09/22 5:47:00 EDT magnesium sulfate + Dextrose 5% in Water intravenous solution 100 mL, 1 gram = 100 mL, IV Piggyback, Once, Stop date 11/09/22 5:48:00 EDT, STAT, Start date 11/09/22 5:48:00 EDT, 200 mL/hr, Infuse over 30 minute(s), 11/09/22 5:48:00 EDT ondansetron, 4 mg = 2 mL, Injection, IV Push, Once, Stop date 11/09/22 5:47:00 EDT, STAT, Start date 11/09/22 5:47:00 EDT, 11/09/22 5:47:00 EDT Medications Administered Given ketorolac 15 mg/mL Inj, 15 mg, IV Push magnesium additive 1 gm + Dextrose 5% in Water intravenous solution 100 mL, IV Piggyback Zofran 4 mg/2 mL Injection, 4 mg, IV Push Disposition Plan Discharge Prescription List Prescriptions No active prescription medications Follow-up No qualifying data available Problem List/Past Medical History Ongoing No qualifying data Historical No qualifying data Medications Inpatient ketorolac 15 mg/mL Inj, 15 mg= 1 mL, IV Push, Once magnesium additive + Dextrose 5% in Water intravenous solution 100 mL Zofran 4 mg/2 mL Injection, 4 mg= 2 mL, IV Push, Once Home Naprosyn 500 mg Tab, 500 mg= 1 tab(s), Oral, BID Allergies No Known Allergies Social History Alcohol - Denies Alcohol Use, 10/22/2022 Substance Abuse - Denies Substance Abuse, 10/22/2022 Tobacco - Denies Tobacco Use, 10/22/2022 Lab Results No qualifying data available. Diagnostic Results No qualifying data available. Patient was signed out to by the prior physician she does feel much better is happy to be discharged home. She will be given prescription for Naprosyn and Compazine to be used as needed for pain nausea and migraine headache. She is comfortable with this plan. [facility] Comment on above: Result Comment: Elec tronically Signed By: Gus Mcgowan DO\.br\Date and Time Signed: 11/09/22 07:29 EDT ED Patient Education Noteon 11-09-2022 ED Patient Education Note [facility] ED Patient Summaryon 023 ED Patient Summary [place] [id number] Patient Discharge Instructions Person Information Name: OSMAN COHEN Age: 21 Years Arrival Date: 11/09/2022 05:13:42 Discharge Diagnosis: Acute headache Primary Care Physician: NONE, XXXX Provider Information Primary Provider: Troy Treadwell DO Advanced Brand Lead:None The exam and treatment you received in the Emergency Department were for an urgent problem and are not intended as complete care. It is important that you follow up with a doctor, nurse practitioner, or physician?s administrative assistant for ongoing care. If your symptoms become worse or you do not improve as expected and you are unable to reach your usual health care provider, you should return to the Emergency Department. We are available 24 hours a day. OSMAN COHEN has been given the following list of patient education materials, prescriptions and follow-up instructions: Follow-up Instructions: With: Address: When: Charisse Melendez [address] [place] [address] Business (1) In 3 days 11/12/2022 With: Address: When: XXXX [facility] [place] In 3 days In the event that this physician does not participate in your insurance network, please consult with your insurance company to find a nearby participating provider. Patient Education Materials: A MESSAGE TO ALL PATIENTS REGARDING OPIOIDS PRESCRIPTION OPIOIDS: WHAT YOU NEED TO KNOW Prescription opioids can be used to help relieve nlofoutz-mf-ztysqv pain and are often prescribed following a surgery or injury, or for certain health conditions. These medications can be an important part of the treatment but also come with serious risks. It is important to work with your healthcare provider to make sure you are getting the safest, most effective care. WHAT ARE THE RISKS AND SIDE EFFECTS OF OPIOID USE? Prescription opioids carry serious risks of addiction and overdose, especially with prolonged use. An opioid overdose, often marked by slowed breathing, can cause sudden . The use of prescription opioids can have a number of side effects as well, even when taken as directed: ? Tolerance?meaning you might need to take more of the medication for the same pain relief ? Physical dependence?meaning you have symptoms of withdrawal when a medication is stopped ? Increased sensitivity to pain ? Constipation ? Nausea, vomiting, and dry mouth ? Sleepiness and dizziness ? Confusion ? Depression ? Low levels of testosterone that can result in lower sex drive, energy, and strength ? Itching and sweating RISKS ARE GREATER WITH: ? History of drug misuse, substance use disorder, or overdose ? Mental health conditions (such as depression or anxiety) ? Sleep apnea ? Older age (65 years and older) ? Avoid alcohol while taking prescription opioids. Also, unless specifically advised by your health care provider, medications to avoid include: ? Benzodiazepines (such as Xanax or Valium) ? Muscle relaxants (such as Soma or Flexeril) ? Hypnotics (such as Ambien or Lunesta) ? Other prescription opioids KNOW YOUR OPTIONS Talk to your health care provider about ways to manage your pain that don?t involve prescription opioids. Some of these options may actually work better and have fewer risks and side effects. Options may include: ? Pain relievers such as acetaminophen, ibuprofen, and naproxen ? Some medication that are also used for depression or seizures ? Physical therapy and exercise ? Cognitive behavioral therapy, a psychological, goal-directed approach, in which patients learn how to modify physical, behavioral, and emotional triggers of pain and stress. IF YOU ARE PRESCRIBED OPIOIDS FOR PAIN: ? Never take opioids in greater amounts or more often than prescribed. ? Follow up with your primary health care provider. o Work together to create a plan on how to manage your pain. o Talk about ways to help manage your pain that don?t involve prescription opioids. o Talk about any and all concerns and side effects. ? Help prevent misuse and abuse o Never sell or share prescription opioids. o Never use another person?s prescription opioids. ? Store prescription opioids in a secure place and out of reach of others (this may include visitors, children, friends, and family). ? Safely dispose of unused prescription opioids: Find your community drug take-back program or your pharmacy mail-back program, or flush them down the toilet, following guidance from the Food and Drug Administration (www.fda.gov/Drugs/ ResourcesForYou). ? Visit www.cdc.gov/drugove rdose to learn about the risks of opioids abuse and overdose. ? If you believe you may be struggling with addiction, tell your health care transitions manager and ask for guidance or call SAMHSA?S National Helpline at 8-706-150-HELP. v Source: US Dep (more content not included)... Normal [facility] Prescriptions/Work Noteson 0 11-09-2022 Prescriptions/Work Notes [id number]#[id number]:127 Normal [facility] CBC with Diffon 08-04-2022 Abs. Basophil 0.00 k/uL Normal 0.0-0.2 [facility] Comment on above: Performed By: #### H CG, CDP, CP, TROPI, DIME #### [facility] [address] [place] [address] [employer]: Ilya Allen MD Abs.Neutrophil (Seg) 2.70 k/uL Normal 2.5-7.0 [facility] Comment on above: Performed By: #### H CG, CDP, CP, TROPI, DIME #### [facility] [address] [place], [place] [id number] [employer]: Ilya Allen MD Auto Diff Performed YES Normal [facility] Comment on above: Performed By: #### H CG, CDP, CP, TROPI, DIME #### [facility] [address] [place] [address] [employer]: Ilya Allen MD Basophils/100 WBC (Bld) 0 % Normal 0-2 [facility] Comment on above: Performed By: #### H CG, CDP, CP, TROPI, DIME #### [facility] [address] [place] [address] [employer]: Ilya Allen MD Eosinophils (Bld) [#/Vol] 0.10 10*3/uL Normal 0.0-0.4 [facility] Comment on above: Performed By: #### H CG, CDP, CP, TROPI, DIME #### [facility] [address] [place] [address] [employer]: Ilya Allen MD Eosinophils/100 WBC (Bld) 2 % Normal 0-5 [facility] Comment on above: Performed By: #### H CG, CDP, CP, TROPI, DIME #### [facility] [address] [place], [place] [id number] [employer]: Ilya Allen MD Erythrocyte distribution width (RBC) [Ratio] 13.4 % Normal 12.1-15.2 [facility] Comment on above: Performed By: #### H CG, CDP, CP, TROPI, DIME #### [facility] [address] [place], [place] [id number] [employer]: Ilya Allen MD Hematocrit (Bld) [Volume fraction] 39.9 % Normal 36-46 [facility] Comment on above: Performed By: #### H CG, CDP, CP, TROPI, DIME #### [facility] [address] [place], [place] [id number] [employer]: Ilya Allen MD Hemoglobin (Bld) [Mass/Vol] 13.4 g/dL Normal 12.0-16.0 [facility] Comment on above: Performed By: #### H CG, CDP, CP, TROPI, DIME #### [facility] [address] [place] [address] [employer]: Ilya Allen MD Lymphocytes (Bld) [#/Vol] 2.70 10*3/uL Normal 1.2-5.2 [facility] Comment on above: Performed By: #### H CG, CDP, CP, TROPI, DIME #### [facility] [address] [place] [address] [employer]: Ilya Allen MD Lymphocytes/100 WBC (Bld) 45 % High 15-40 [facility] Comment on above: Performed By: #### H CG, CDP, CP, TROPI, DIME #### [facility] [address] [place], [place] [id number] [employer]: Ilya Allen MD MCH (RBC) [Entitic mass] 25.7 pg Low 26-34 [facility] Comment on above: Performed By: #### H CG, CDP, CP, TROPI, DIME #### [facility] [address] [place], [place] [phone] [employer]: Ilya Allen MD MCHC (RBC) [Mass/Vol] 33.5 g/dL Normal 31-37 [facility] Comment on above: Performed By: #### H CG, CDP, CP, TROPI, DIME #### [facility] [address], [place] [phone]) [employer]: Ilya Allen MD MCV (RBC) [Entitic vol] 76.8 fL Low 80-[address] [facility] Comment on above: Performed By: #### H CG, CDP, CP, TROPI, DIME #### [facility] [address] [place], [place] [phone] ([phone]) [employer]: Ilya Allen MD Monocytes (Bld) [#/Vol] 0.40 10*3/uL Normal 0.0-1.0 [facility] Comment on above: Performed By: #### H CG, CDP, CP, TROPI, DIME #### [facility] [address] [place], [place] [phone] ([phone]) [employer]: Ilya Allen MD Monocytes/100 WBC (Bld) 8 % Normal 4-[address] [facility] Comment on above: Performed By: #### H CG, CDP, CP, TROPI, DIME #### [facility] [address] [place], [place] [phone] ([phone]) [employer]: Ilya Allen MD Neutrophil (Seg) 45 % Low 47-75 [facility] Comment on above: Performed By: #### H CG, CDP, CP, TROPI, DIME #### [facility] [address] [place], [place] [phone] [employer]: Ilya Allen MD Platelets (Bld) [#/Vol] 257 10*3/uL Normal 140-450 [facility] Comment on above: Performed By: #### H CG, CDP, CP, TROPI, DIME #### [facility] [address] [place] [address] [employer]: Ilya Allen MD RBC (Bld) [#/Vol] 5.20 10*6/uL Normal 4.0-5.2 [facility] Comment on above: Performed By: #### H CG, CDP, CP, TROPI, DIME #### [facility] [address] [place] [address] [employer]: Ilya Allen MD WBC (Bld) [#/Vol] 5.9 10*3/uL Normal 4.5-13.5 [facility] Comment on above: Performed By: #### H CG, CDP, CP, TROPI, DIME #### [facility] [address] [place] [address] [employer]: Ilya Allen MD CTA CHEST W CONTRASTon 08-04 CTA CHEST W CONTRAST EXAMINATION: CTA CHEST W CONTRAST HISTORY: Reason for exam:->sharp chest pain with inspiration, DDImer 0.54 (cutoff is 0.50) COMPARISON: Portable chest 08/04/2022 was negative. TECHNIQUE: CT angiography of the pulmonary arteries following the administration of intravenous contrast. Coronal and sagittal MIP (maximum intensity projection) images were performed. Dose reduction techniques were achieved by using automated exposure control and/or adjustment of mA and/or kV according to patient size and/or use of iterative reconstruction technique. FINDINGS: POSITIVES: None. NEGATIVES: No pulmonary embolus. COINCIDENTAL: None. ROUTINE: No mediastinal or hilar adenopathy. No pneumonia or pleural effusion. Upper abdomen negative. Bone windows negative. IMPRESSION: No pulmonary embolus. Negative. Interpreted by: Ken Mansfield Jr., MD Signed by: Ken Mansfield Jr., MD 08/04/22 Final result Normal [facility] Comp Metabolic Profon 2022 Albumin [Mass/Vol] 4.0 g/dL Normal 3.5-5.2 [facility] Comment on above: Performed By: #### H CG, CDP, CP, TROPI, DIME #### [facility] [address] [place] [address] [employer]: Ilya Allen MD Alkaline Phos 95 U/L Normal 35-104 [facility] Comment on above: Performed By: #### H CG, CDP, CP, TROPI, DIME #### [facility] [address] [place] [address] [employer]: Ilya Allen MD ALT [Catalytic activity/Vol] 14 U/L Normal 5-33 [facility] Comment on above: Performed By: #### H CG, CDP, CP, TROPI, DIME #### [facility] [address] [place] [address] [employer]: Ilya Allen MD Anion gap [Moles/Vol] 11 mmol/L Normal 9-17 [facility] Comment on above: Performed By: #### H CG, CDP, CP, TROPI, DIME #### [facility] [address] [place], [place] [phone] [employer]: Ilya Allen MD AST [Catalytic activity/Vol] 16 U/L Normal <32 [facility] Comment on above: Performed By: #### H CG, CDP, CP, TROPI, DIME #### [facility] [address] [place], [place] [phone] [employer]: Ilya Allen MD Bilirubin [Mass/Vol] 0.2 mg/dL Low 0.3-1.2 [facility] Comment on above: Performed By: #### H CG, CDP, CP, TROPI, DIME #### [facility] [address] [place], [place] [phone] [employer]: Ilya Allen MD BUN/CRE Ratio 17 Normal 9-20 [facility] Comment on above: Performed By: #### H CG, CDP, CP, TROPI, DIME #### [facility] [address] [place], [place] [phone] [employer]: Ilya Allen MD Calcium [Mass/Vol] 8.8 mg/dL Normal 8.6-10.4 [facility] Comment on above: Performed By: #### H CG, CDP, CP, TROPI, DIME #### [facility] [address] [place] [address] [employer]: Ilya Allen MD Chloride [Moles/Vol] 106 mmol/L Normal 98-107 [facility] Comment on above: Performed By: #### H CG, CDP, CP, TROPI, DIME #### [facility] [address] [place], [place] [phone] [employer]: Ilya Allen MD CO2 [Moles/Vol] 22 mmol/L Normal 20-31 [facility] Comment on above: Performed By: #### H CG, CDP, CP, TROPI, DIME #### [facility] [address] [place] [address] [employer]: Ilya Allen MD Creatinine [Mass/Vol] 0.64 mg/dL Normal 0.50-0.90 [facility] Comment on above: Performed By: #### H CG, CDP, CP, TROPI, DIME #### [facility] [address] [place] [address] [employer]: Ilya Allen MD GFR/1.73 sq M.predicted among non-blacks MDRD (S/P/Bld) [Vol rate/Area] mL/min/{1.73_m2} Normal >60 [facility] Comment on above: Result Comment: These results are not intended for use in patients <18 years of age. eGFR results are calculated without a race factor using the 2020 CKD-EPI equation. Careful clinical correlation is recommended, particularly when comparing to results calculated using previous equations. The CKD-EPI equation is less accurate in patients with extremes of muscle mass, extra-renal metabolism of creatine, excessive creatine ingestion, or following therapy that affects renal tubular secretion. Performed By: #### H CG, CDP, CP, TROPI, DIME #### [facility] [address] [place], [place] [phone] [employer]: Ilya Allen MD Glucose [Mass/Vol] 109 mg/dL High 70-99 [facility] Comment on above: Performed By: #### H CG, CDP, CP, TROPI, DIME #### [facility] [address] [place], [place] [phone] [employer]: Ilya Allen MD Potassium [Moles/Vol] 3.7 mmol/L Normal 3.7-5.3 [facility] Comment on above: Performed By: #### H CG, CDP, CP, TROPI, DIME #### [facility] [address] [place], [place] [phone] [employer]: Ilya Allen MD Protein [Mass/Vol] 7.3 g/dL Normal 6.4-8.3 [facility] Comment on above: Performed By: #### H CG, CDP, CP, TROPI, DIME #### [facility] [address] [place], [place] [id number] [employer]: Ilya Allen MD Sodium [Moles/Vol] 139 mmol/L Normal 135-144 [facility] Comment on above: Performed By: #### H CG, CDP, CP, TROPI, DIME #### [facility] [address] [place], [place] [phone] [employer]: Ilya Allen MD Urea nitrogen [Mass/Vol] 11 mg/dL Normal 6-20 [facility] Comment on above: Performed By: #### H CG, CDP, CP, TROPI, DIME #### [facility] [address] [place], [place] [phone] [employer]: Ilya Allen MD D-Dimer Teston 08-04-2022 D-Dimer Test 0.54 mg/L FEU Normal 0.00-0.59 [facility] Comment on above: Result Comment: When combined with a low clinical probability, a D dimer value of <0.50 mg/L FEU is considered negative for DVT and PE (negative predictive value of 98%, sensitivity of 97%). If this test is not being used to help rule out DVT and PE, then the following reference range should be utilized: 0.00 - 0.59 mg/L FEU. The D-Dimer assay is intended for use as an aid in the diagnosis of venous thromboembolism (DVT and PE) and the results should be interpreted in conjunction with the patient's medical history, clinical presentation, and other findings. Elevated levels of D-dimer activity can be seen in any state of coagulation activation and is not recommended in patients with therapeutic dose anticoagulant therapy for >24 hours, fibrinolytic therapy within the previous 7 days, trauma or surgery within the previous 4 weeks, disseminated malignancies, aortic aneurysm, sepsis, severe infections, pneumonia, severe skin infections, liver cirrhosis, advanced age, coronary disease, diabetes, and . A very low percentage of patients with DVT may yield D-dimer results below the cutoff of 0.5 mg/L FEU. This is known to be more prevalent in patients with distal DVT. Performed By: #### H REGINA GAGNON CP, TROPI, DIME #### [facility] [address] [place] [address] [employer]: Ilya Allen MD HCG Screen, Bloodon 08-05-19 23 HCG Screen, Blood Negative Normal NE[facility] Comment on above: Result Comment: Spec imens with hCG levels near the threshold of the test (25 mIU/mL) may give a negative or indeterminate result. In such cases, another test should be performed with a new specimen in 48-72 hours. If early is suspected clinically in this setting, correlation with quantitative serum b-hCG level is suggested. [employer] has confirmed the use of plasma for this test. This has not been cleared or approved by the U.S. Food and Drug Administration. The FDA has determined that such clearance is not necessary. Performed By: #### H CHELSI, REGINA, CP, TROPI, DIME #### [facility] [address] [place] [address] [employer]: Ilya Allen MD Sedimentation Rateon 023 Sedimentation Rate 19 mm/Hr Normal 0-20 [facility] Comment on above: Performed By: #### S ED #### [facility] [address] [place], [place] [phone] [employer]: Ilya Allen MD Troponinon 08-04-2022 Troponin, High Sens <6 Normal 0-14 [facility] Comment on above: Result Comment: High Sensitivity Troponin values cannot be compared with other Troponin methodologies. Performed By: #### H CG, CDP, CP, TROPI, DIME #### [facility] [address] [place], [place] [phone] [employer]: Ilya Allen MD XR CHEST PORTABLEon 08-05-19 XR CHEST PORTABLE EXAM: XR CHEST PORTABLE HISTORY: Reason for exam:->CP COMPARISON: 07/13/2022 chest IMPRESSION: FINDINGS/IMPRESSION : 1. Normal sized heart. 2. Clear lungs. Interpreted by: Ken Mansfield Jr., MD Signed by: Ken Mansfield Jr., MD 08/04/22 Final result Normal [facility] XR CHEST 1 Von 07-13-2022 XR CHEST 1 V EXAM: XR CHEST 1 V 07/13/2022 5:12 AM EST [facility]001 CLINICAL STATEMENT: CHEST PAIN, UNSPECIFIED COMPARISON: No prior studies are available at the time of dictation. TECHNIQUE: Single AP radiograph of the chest is submitted. FINDINGS: There is lingular atelectasis. No acute airspace disease. The cardiac silhouette is normal. The costophrenic recesses are sharp. No pneumothorax. The bony elements are unremarkable. IMPRESSION: Lingular atelectasis. No acute airspace disease. FOLLOW-UP: Follow-up as clinically indicated. Electronically authenticated by: TRACEY SAID Date: 2022-07-13 05:38 Normal [facility] CHLAMYDIA/GONOCOCCUS ROXANA (SW AB/URINE/PAPon 06-19-2022 Chlamydia trachomatis, ROXANA Negative Normal Negative [facility] Comment on above: Performed By: #### C T/NGNA #### [facility] [address] [address] [address] Naveed Barron Neisseria gonorrhoeae, ROXANA Negative Normal Negative [facility] Comment on above: Performed By: #### C T/NGNA #### [facility] [address] [place] [address] Dr. Naveed Barron CULTURE URINEon 06-19-2022 CULTURE URINE Isolate 1 Escherichia coli >100,000 cfu/mL of ORGANISM 1 Escherichia coli ANTIBIOTIC M.I.C RX STATUS Ampicillin 8 S F Ampicillin/Sulbacta m 4 S F Piperacillin/Tazoba ctam <=4 S F Cefazolin <=4 S F Ceftazidime <=1 S F Ceftriaxone <=1 S F Ertapenem <=0.5 S F Imipenem <=0.25 S F Amikacin <=2 S F Gentamicin <=1 S F Tobramycin <=1 S F Ciprofloxacin <=0.25 S F Levofloxacin <=0.12 S F Nitrofurantoin <=16 S F Trimethoprim/Sulfam ethoxazole <=20 S F Normal [facility] Comment on above: Performed By: #### U RCX #### [facility] [address] [place] [address] Dr. Naveed Barron CBC W MANUAL DIFFon 06-17-19 23 ATYPICAL LYMPH # 0.77 103/ul Normal [facility] Comment on above: Performed By: #### C CRYSTAL #### [facility] [address] [place] [address] Dr. Naveed Barron ATYPICAL LYMPH % 12 % Normal [facility] Comment on above: Performed By: #### C CRYSTAL #### [facility] [address] [place] [address] Dr. Naveed Barron BAND # 0.1 103/ul Normal 0.0-0.3 [facility] Comment on above: Performed By: #### C CRYSTAL #### [facility] [address] [place] [address] Dr. Naveed Barron BAND % 2 % Normal 0-5 [facility] Comment on above: Performed By: #### C CRYSTAL #### [facility] [address] [place] [address] Dr. Naveed Barron BASOM # 0.06 103/ul Normal 0.00-0.10 [facility] Comment on above: Performed By: #### C CRYSTAL #### [facility] [address] [place] [address] Dr. Naveed Barron BASOM % 1.0 % Normal 0.2-2.0 [facility] Comment on above: Performed By: #### C CRYSTAL #### [facility] [address] [place] [address] Dr. Naveed Barron BLAST # Normal [facility] Comment on above: Performed By: #### C CRYSTAL #### [facility] [address] [place] [address] Dr. Naveed Barron BLAST % Normal [facility] Comment on above: Performed By: #### C CRYSTAL #### [facility] [address] [place] [address] Dr. Naveed Barron CORRECTED WBC Normal 4.0-11.0 [facility] Comment on above: Performed By: #### C CRYSTAL #### [facility] [address] [place] [address] Dr. Naveed Barron EOS # 0.38 103/ul Normal 0.00-0.70 [facility] Comment on above: Performed By: #### C CRYSTAL #### [facility] [address] [place] [address] Dr. Naveed Barron EOS% 6.0 % Normal 0.9-7.0 [facility] Comment on above: Performed By: #### C CRYSTAL #### [facility] [address] [place] [address] Dr. Naveed Barron HCT 44.0 % Normal 36.0-48.0 [facility] Comment on above: Performed By: #### C CRYSTAL #### [facility] [address] [place] [address] Dr. Naveed Barron HGB 14.5 g/dl Normal 12.0-16.0 [facility] Comment on above: Performed By: #### C CRYSTAL #### [facility] [address] [place] [address] Dr. Naveed Barron LYMPHM # 1.92 103/ul Normal 1.20-3.80 [facility] Comment on above: Performed By: #### C CRYSTAL #### [facility] [address] [place] [address] Dr. Naveed Barron LYMPHM% 30.0 % Normal 20.5-60.0 [facility] Comment on above: Performed By: #### C CRYSTAL #### [facility] [address] [place] [address] Dr. Naveed Barron MCH 25.3 pg Critically low 26.7-34.0 [facility] Comment on above: Performed By: #### C CRYSTAL #### [facility] [address] [place] [address] Dr. Naveed Barron MCHC 33.0 g/dl Normal 29.9-35.2 [facility] Comment on above: Performed By: #### C CRYSTAL #### [facility] [address] [place] [address] Dr. Naveed Barron MCV 76.9 fL Critically low 81.0-99.0 [facility] Comment on above: Performed By: #### C CRYSTAL #### [facility] [address] [place] [address] Dr. Naveed Barron METAMYELOCYTE # Normal [facility] Comment on above: Performed By: #### C CRYSTAL #### [facility] [address] [place] [address] Dr. Naveed Barron METAMYELOCYTE % Normal [facility] Comment on above: Performed By: #### C CRYSTAL #### [facility] [address] [place] [address] Dr. Naveed Barron MONOM# 0.38 103/ul Normal 0.30-0.80 [facility] Comment on above: Performed By: #### C CRYSTAL #### [facility] [address] [place] [address] Dr. Naveed Barron MONOM% 6.0 % Normal 1.7-12.0 [facility] Comment on above: Performed By: #### C CRYSTAL #### [facility] [address] [place] [address] Dr. Naveed Barron MPV 8.9 fL Critically low 9.5-13.5 [facility] Comment on above: Performed By: #### C CRYSTAL #### [facility] [address] [place] [address] Dr. Naveed Barron MYELOCYTE # Normal [facility] Comment on above: Performed By: #### C CRYSTAL #### [facility] [address] [place] [address] Dr. Naveed Barron MYELOCYTE % Normal [facility] Comment on above: Performed By: #### C CRYSTAL #### [facility] [address] [place] [address] Dr. Naveed Barron NRBC Normal [facility] Comment on above: Performed By: #### C CRYSTAL #### [facility] [address] [place] [address] Dr. Naveed Barron PLT 229 103/ul Normal 150-450 [facility] Comment on above: Performed By: #### C CRYSTAL #### [facility] [address] [place] [address] Dr. Naveed Barron RBC 5.72 106/ul Critically high 4.20-5.40 [facility] Comment on above: Performed By: #### C CRYSTAL #### [facility] [address] [place] [address] Dr. Naveed Barron RDW 13.2 % Normal 11.0-15.0 [facility] Comment on above: Performed By: #### C CRYSTAL #### [facility] [address] [place] [address] Dr. Naveed Barron SEG # 2.75 103/ul Normal 1.40-6.50 [facility] Comment on above: Performed By: #### C CRYSTAL #### [facility] [address] [place] [address] Dr. Naveed Barron SEG % 43.0 % Normal 43.0-75.0 [facility] Comment on above: Performed By: #### C CRYSTAL #### [facility] [address] [place] [address] Dr. Naveed Barron WBC 6.4 103/ul Normal 4.0-11.0 [facility] Comment on above: Performed By: #### C BCMAN #### [facility] [address] [address] [address] Naveed RUTLEDGE URINE PROFILEon 3 Bilirubin Ql (U) Negative Normal NEGATIVE [facility] Comment on above: Performed By: #### P REGU UMICRO, ERUR #### [facility] [address] [address] [address] Naveed Barron Clarity (U) CLEAR Normal CLEAR [facility] Comment on above: Performed By: #### P REGU UMICRO, ERUR #### [facility] [address] [address] [address] Naveed Barron Color (U) YELLOW Normal YELLOW [facility] Comment on above: Performed By: #### P REGU UMICRO, ERUR #### [facility] [address] [address] [address] Naveed NAVARRO A micrscopic examination will be performed if indicated. Normal [facility] Comment on above: Performed By: #### P REGU UMICRO, ERUR #### [facility] [address] [address] [address] Naveed Barron Glucose Ql (U) Negative Normal NEGATIVE The [facility] Comment on above: Performed By: #### P REGU UMICRO, ERUR #### [facility] [address] [address] [address] Naveed Barron Hemoglobin Ql (U) LARGE Abnormal NEGATIVE [facility] Comment on above: Performed By: #### P REGU UMICRO, ERUR #### [facility] [address] [address] [address] Naveed Barron Ketones Ql (U) Negative Normal NEGATIVE The [facility] Comment on above: Performed By: #### P REGU UMICRO, ERUR #### [facility] [address] [address] [address] Naveed Barron LEUKOCYTES TRACE Abnormal NEGATIVE [facility] Comment on above: Performed By: #### P REGU UMICRO, ERUR #### [facility] [address] [address] [address] Naveed Barron Nitrite Ql (U) Positive Abnormal NEGATIVE The [facility] Comment on above: Performed By: #### P REGU UMICRO, ERUR #### [facility] [address] [address] [address] Naveed Barron pH (U) 6.0 [pH] Normal 5-9 [facility] Comment on above: Performed By: #### P REGU UMICRO, ERUR #### [facility] [address] [address] [address] Naveed Barron Protein (U) [Mass/Vol] 100 mg/dL Abnormal NEGAT PJ/ TRACE [facility] Comment on above: Performed By: #### P REGRAFAEL Brantley, ERUR #### [facility] [address] [address] [address] Naveed Barron SPEC GRAVITY >=1.030 Abnormal 1.005-<=1.0 25 [facility] Comment on above: Performed By: #### RAFAEL DAVIS, ERUR #### [facility] [address] [address] [address] Naveed Barron UR MICRO IND INDICATED Normal [facility] Comment on above: Performed By: #### P REGRAFAEL Brantley, ERUR #### [facility] [address] [address] [address] Naveed Barron Urobilinogen Qn (U) 0.2 {Enrique'U}/dL Normal 0.2 - 1. 0 [facility] Comment on above: Performed By: #### P REGMARCELLO BrantleyICNATALI, ERUR #### [facility] [address] [place] [address] Dr. Naveed Barron URon 06-17-2022 , QUAL Negative Normal NEGATIVE The [facility] Comment on above: Performed By: #### P REGU UMICRO, ERUR #### [facility] [address] [address] [address] Naveed Barron PROF CHEM 8 (BAS METB)on Anion gap [Moles/Vol] 13.9 mmol/L Normal Th [facility] Comment on above: Performed By: #### B MP #### [facility] [address] [address] [address] Naveed Barron Calcium [Mass/Vol] 8.9 mg/dL Normal 8.5-10.1 [facility] Comment on above: Performed By: #### B MP #### [facility] [address] [address] [address] Naveed Barron Chloride [Moles/Vol] 102 mmol/L Normal 98-107 [facility] Comment on above: Performed By: #### B MP #### [facility] [address] [place] [address] Dr. Naveed Barron CO2 [Moles/Vol] 25.9 mmol/L Normal 21.0-32.0 [facility] Comment on above: Performed By: #### B MP #### [facility] [address] [place] [address] Dr. Naveed Barron Creatinine [Mass/Vol] 0.75 mg/dL Normal 0.55-1.02 [facility] Comment on above: Performed By: #### B MP #### [facility] [address] [place] [address] Dr. Naveed Barron EGFR-AF NAMIBIAN >60 Normal >=60 [facility] Comment on above: Performed By: #### B MP #### [facility] [address] [place] [address] Dr. Naveed Barron EGFR-NON AF NAMIBIAN >60 Normal >=60 [facility] Comment on above: Performed By: #### B MP #### [facility] [address] [place] [address] Dr. Naveed Barron Glucose [Mass/Vol] 109 mg/dL Critically high 74-[address] [facility] Comment on above: Performed By: #### B MP #### [facility] [address] [place] [address] Dr. Naveed Barron Potassium [Moles/Vol] 3.8 mmol/L Normal 3.5-5.1 [facility] Comment on above: Performed By: #### B MP #### [facility] [address] [place] [address] Dr. Naveed Barron Sodium [Moles/Vol] 138 mmol/L Normal 136-145 [facility] Comment on above: Performed By: #### B MP #### [facility] [address] [address] [address] Naveed Barron Urea nitrogen [Mass/Vol] 8.0 mg/dL Normal 6.4-19.3 [facility] Comment on above: Performed By: #### B MP #### [facility] [address] [place] [address] Dr. Naveed Barron Urea nitrogen/Creatinine [Mass ratio] 10.7 mg/mg Normal [facility] Comment on above: Performed By: #### B MP #### [facility] [address] [place] [address] Dr. aNveed Barron URINE MICROSCOPIC ONLYon BACTERIA MODERATE Abnormal NONE SEEN [facility] Comment on above: Performed By: #### P RAFAEL COLE, ERUR #### [facility] [address] [place] [address] Dr. Naveed Barron Bacteria identified Cx Nom (U) INDICATED Normal [facility] Comment on above: Performed By: #### P RAFAEL COLE, ERUR #### [facility] [address] [place] [address] Dr. Naveed Barron CAST NONE SEEN Normal NONE SEEN [facility] Comment on above: Performed By: #### P RAFAEL COLE, ERUR #### [facility] [address] [place] [address] Dr. Naveed Barron Crystals LM Nom (Urine sed) NONE SEEN Normal NONE SEEN [facility] Comment on above: Performed By: #### P MICKEYURAFAEL, ERUR #### [facility] [address] [place] [address] Dr. Naveed Barron Epithelial cells LM Ql (Urine sed) RARE Normal NONE SEEN /RARE [facility] Comment on above: Performed By: #### P RAFAEL COLE, ERUR #### [facility] [address] [place] [address] Dr. Naveed Barron MUCOUS NONE SEEN Normal NONE SEEN [facility] Comment on above: Performed By: #### P RAFAEL COLE, ERUR #### [facility] [address] [address] [address] Naveed Barron RBC 50-75 Abnormal 0-2 [facility] Comment on above: Performed By: #### P RAFAEL COLE, ERUR #### [facility] [address] [place] [address] Dr. Naveed Barron WBC 2-5 Abnormal NONE SEEN [facility] Comment on above: Performed By: #### P RAFAEL COLE, ERUR #### [facility] [address] [place] [address] Dr. Naveed Barron WET PREPon 06-17-2022 CLUE CELLS NONE SEEN Normal NONE SEEN [facility] Comment on above: Performed By: #### W P #### [facility] [address] [place] [address] Dr. Naveed Barron FUNGAL ELEMENTS NONE SEEN Normal NONE SEEN The [facility] Comment on above: Performed By: #### W P #### [facility] [address] [place] [address] Dr. Naveed Barron RBC -WET PREP RARE Abnormal NONE SEEN [facility] Comment on above: Performed By: #### W P #### [facility] [address] [address] [address] Naveed Barron TRICHOMONAS NONE SEEN Normal NONE SEEN [facility] Comment on above: Performed By: #### W P #### [facility] [address] [place] [address] Dr. Naveed Barron WBC- WET PREP NONE SEEN Normal NONE SEEN [facility] Comment on above: Performed By: #### W P #### [facility] [address] [place] [address] Dr. Naveed Barron WET PREP BACTERIA MODERATE Abnormal NONE SEEN [facility] Comment on above: Performed By: #### W P #### [facility] [address] [place], [place] [address] Dr. Naveed Barron Flu A/B Ag Detectionon 05-20 Flu A Ag Detection Negative Normal NEG [facility] Comment on above: Result Comment: for Influenza A Antigen Performed By: #### F LUABA #### [facility] [address] [place], [place] [id number] Preformer [employer]: Ilya Allen MD Flu B Ag Detection Negative Normal NEG [facility] Comment on above: Result Comment: for Influenza B Antigen. Performed By: #### F LUABA #### [facility] [address] [place] [address] Preformer [employer]: Ilya Allen MD [id number] 05-20-2022 SARS-CoV-2 (COVID-19) RNA ROXANA+probe Ql (Unsp spec) Not detected Normal NOTDET [facility] Comment on above: Result Comment: Rapid NAAT: The specimen is NEGATIVE for SARS-CoV-2, the novel coronavirus associated with COVID-19. The ID NOW COVID-19 assay is designed to detect the virus that causes COVID-19 in patients with signs and symptoms of infection who are suspected of COVID-19. An individual without symptoms of COVID-19 and who is not shedding SARS-CoV-2 virus would expect to have a negative (not detected) result in this assay. Negative results should be treated as presumptive and, if inconsistent with clinical signs and symptoms or necessary for patient management, should be tested with an alternative molecular assay. Negative results do not preclude SARS-CoV-2 infection and should not be used as the sole basis for patient management decisions. Fact sheet for Healthcare Providers: https://www.fda.gov/media/541538/download Fact sheet for Patients: https://www.fda.gov/media/222802/download Methodology: Isothermal Nucleic Acid Amplification Performed By: #### C OVRB #### [facility] [address] [place] [address] Preformer [employer]: Ilya Allen MD MRI PITUITARY WO/W IVCONon 0 01-19-2022 MRI PITUITARY WO/W IVCON * * *Final Repo rt* * * DATE OF EXAM: Jan 19 2022 4:02PM FRITZ 0314 - MRI PITUITARY WO/W IVCON / PROCEDURE REASON: Amenorrhea * * * * Physician Interpretation * * * * EXAMINATION: MRI PITUITARY WO/W IVCON HISTORY: Amenorrhea. Hormone imbalance. TECHNIQUE: Multiplanar multisequence MR imaging of the pituitary without and with intravenous contrast. Contrast: 20 mL Dotarem IV COMPARISON: None. RESULT: The pituitary gland demonstrates homogenous enhancement and measures 3 mm in craniocaudal dimension, somewhat small in size. There is a concave upper border of the pituitary gland. There is no evidence of a pituitary lesion. The infundibulum is midline. The suprasellar region is unremarkable. The optic chiasm is normal. There is no restricted diffusion. 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 No pituitary lesion. Education Sales Consultant: PSCB Transcribe Date/Time: Jan 20 2022 10:32A Dictated by : WENDY HAYNES MD This examination was interpreted and the report reviewed and electronically signed by: WENDY HAYNES MD on Jan 20 2022 10:39AM EST [id number] Normal [facility] CNOVon 07-02-2021 CNOV Office Visit (REIAV) ---- OSMAN COHEN ([id number]) 4 F Date Time Provider Department 07/02/21 10:00 AM [facility] During your visit today, we recorded the following information about you: Pulse Blood pressure Weight Height 85/minute 138/61 109.3 kg 1.6 m Buffy Riley Ma 07/02/2021 11:15 AM Signed Exam chaperoned by Buffy Sawyer MD 08/01/2021 5:02 PM Signed [facility] Date:07/02/2021 Consultation Requested By: Dr. Tho Lubin DO Osman Cohen is a 20 year old female presenting with the following history: HISTORY OF PRESENT ILLNESS: Osman Cohen is a 20 year old female with Referred by Dr. Hiram Lubin DO for primary amenorrhea and delayed onset of first menses Reports she experiences cramps and headaches every month but no bleeding Has never had a period - has never been sexually active Transabdominal US in 2018 normal, pt underwent repeat US on June 03, 2021 but never got any result, labs completed in April. When she was 11 yo. She was admitted for heart condition x 2 weeks. Pt is a twins and her twins at 6 months. No complicates. All of her sisters has no period problems. Sister is 5.5 Mom 5.2, Father 6.0. Started breast development and pubic hair develop at the age of 17 yo. Obstetric History T0 L0 SAB0 IAB0 Ectopic0 Multiple0 Live Births0 Fertility Evaluations and Treatments: Eval Checklist Results Date Comments HSG Hysteroscopy Laparoscopy OPK (Ovulation Predictor Kit) Ovarian [place] Saline Ultrasound Semen Analysis Ultrasound Other (See comments) MENSTRUAL HISTORY: Menarche Age: n/a Length of Cycle: Days: Menstrual Flow: Menstrual Symptoms: No LMP recorded. (Menstrual status: None). 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 PAST SURGICAL HISTORY Procedure Laterality Date - NONE FAMILY HISTORY Problem Relation Age of Onset - Diabetes Mother - Diabetes Father - Hypertension Father - No Known Problems Sister - No Known Problems Sister - No Known Problems Sister - No Known Problems Sister - No Known Problems Brother - Asthma Maternal Grandmother - Diabetes Maternal Grandmother - Hypertension Maternal Grandmother - Diabetes Maternal Grandfather - Stroke Maternal Grandfather - Diabetes Paternal Grandmother - Diabetes Paternal Grandfather - Cancer Maternal Aunt GENETIC HISTORY: no OCCUPATION/EXERCISE : Occupation: Exercise: Partner Information Partner's Name: n/a Partner's : Partner's MRN: Partner's Ethnicity: Partner's Race: MEDICATIONS: No current outpatient medications on file prior to visit. No current facility-administer ed medications on file prior to visit. ALLERGIES: Latex Blood Type: No results found for this basename: aborhd No results found for this basename: rubqnt,vzvg PHYSICAL EXAM: 07/02/21 1030 BP: 138/61 Pulse: 85 Weight: 109.3 kg (241 lb) Height: 160 cm (5' 3 ) General appearance: Well appearing, alert, in no acute distress, well-hydrated, well nourished. Skin: Skin color, texture, turgor normal. No rashes or lesions, no significant acne, hirsutism or hair loss, Neck: Neck supple, no adenopathy; thyroid symmetric, normal size, no bruits. Lungs: Lungs clear to auscultation,No wheezing or rhonchi Heart: negative. RRR without murmur, gallop, or rubs. No ectopy. Breasts: Fernando III Abdomen: Abdomen soft, non-tender. Bowel sounds normal. No masses, organomegaly, or bruit,no hernias Pelvic:Pubic hair/axillary hair [address] V. The rest of the pelvic exam deferred. 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 Plan: Blood work to r/o other conditions mimic PCOS and to repeat some of the blood work. MRI to r/o pituitary lesions causing amenorrhea. Pt to RTC to discuss findings and treatment plans. Office Visit on 07/02/21 - MRI PITUITARY WO/W IVCON - FSH BLD - LUTEINIZING HORMONE - ESTRADIOL-17B BLD - PROLACTIN BLD - TSH BLD - T4 FREE/FREE THYROX - T3 BLD - HYDROXYPROGESTERO-1 7 Total Visit Time: 40 minutes. Time Spent in Counseling and Coordination of Care: 30 minutes. Consultation requested by Dr. Tho Lubin for an opinion regarding primary amenorrhea My final recommendations will be communicated back to the requesting physician by way of shared Medical record or letter to requesting physician via [place] mail. Sapna Sawyer MD Referring Provider: SELF [[id number]] Allergies As of Date: 07/02/2021 Noted Allergy Reaction LATEX 06/20/2021 16 - Unknown Date Reviewed: 07/02/2021 Re (more content not included)... Normal [facility] CONSULT PROGon 07-02-2021 CONSULT PROG HNO ID: [id number] Author: Sanford Degroot MD Service: ? Author Type: Physician Type: Consult Progress Note Filed: 08/01/2021 5:02 PM Note Text: [facility] Date:07/02/2021 Consultation Requested By: Dr. Tho Lubin DO Osman Cohen is a 20 year old female presenting with the following history: HISTORY OF PRESENT ILLNESS: Osman Cohen is a 20 year old female with Referred by Dr. Hiram Lubin DO for primary amenorrhea and delayed onset of first menses Reports she experiences cramps and headaches every month but no bleeding Has never had a period - has never been sexually active Transabdominal US in 2018 normal, pt underwent repeat US on June 03, 2021 but never got any result, labs completed in April. When she was 11 yo. She was admitted for heart condition x 2 weeks. Pt is a twins and her twins at 6 months. No complicates. All of her sisters has no period problems. Sister is 5.5 Mom 5.2, Father 6.0. Started breast development and pubic hair develop at the age of 17 yo. Obstetric History T0 L0 SAB0 IAB0 Ectopic0 Multiple0 Live Births0 Fertility Evaluations and Treatments: Eval Checklist Results Date Comments HSG Hysteroscopy Laparoscopy OPK (Ovulation Predictor Kit) Ovarian [place] Saline Ultrasound Semen Analysis Ultrasound Other (See comments) MENSTRUAL HISTORY: Menarche Age: n/a Length of Cycle: Days: Menstrual Flow: Menstrual Symptoms: No LMP recorded. (Menstrual status: None). 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 PAST SURGICAL HISTORY Procedure Laterality Date - NONE FAMILY HISTORY Problem Relation Age of Onset - Diabetes Mother - Diabetes Father - Hypertension Father - No Known Problems Sister - No Known Problems Sister - No Known Problems Sister - No Known Problems Sister - No Known Problems Brother - Asthma Maternal Grandmother - Diabetes Maternal Grandmother - Hypertension Maternal Grandmother - Diabetes Maternal Grandfather - Stroke Maternal Grandfather - Diabetes Paternal Grandmother - Diabetes Paternal Grandfather - Cancer Maternal Aunt GENETIC HISTORY: no OCCUPATION/EXERCISE : Occupation: Exercise: Partner Information Partner's Name: n/a Partner's : Partner's MRN: Partner's Ethnicity: Partner's Race: MEDICATIONS: No current outpatient medications on file prior to visit. No current facility-administer ed medications on file prior to visit. ALLERGIES: Latex Blood Type: No results found for this basename: aborhd No results found for this basename: rubqnt,vzvg PHYSICAL EXAM: 07/02/21 1030 BP: 138/61 Pulse: 85 Weight: 109.3 kg (241 lb) Height: 160 cm (5' 3 ) General appearance: Well appearing, alert, in no acute distress, well-hydrated, well nourished. Skin: Skin color, texture, turgor normal. No rashes or lesions, no significant acne, hirsutism or hair loss, Neck: Neck supple, no adenopathy; thyroid symmetric, normal size, no bruits. Lungs: Lungs clear to auscultation,No wheezing or rhonchi Heart: negative. RRR without murmur, gallop, or rubs. No ectopy. Breasts: Fernando III Abdomen: Abdomen soft, non-tender. Bowel sounds normal. No masses, organomegaly, or bruit,no hernias Pelvic:Pubic hair/axillary hair Fernando V. The rest of the pelvic exam deferred. 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 Plan: Blood work to r/o other conditions mimic PCOS and to repeat some of the blood work. MRI to r/o pituitary lesions causing amenorrhea. Pt to RTC to discuss findings and treatment plans. Office Visit on 07/02/21 - MRI PITUITARY WO/W IVCON - FSH BLD - LUTEINIZING HORMONE - ESTRADIOL-17B BLD - PROLACTIN BLD - TSH BLD - T4 FREE/FREE THYROX - T3 BLD - HYDROXYPROGESTERO-1 7 Total Visit Time: 40 minutes. Time Spent in Counseling and Coordination of Care: 30 minutes. Consultation requested by Dr. Tho Lubin for an opinion regarding primary amenorrhea My final recommendations will be communicated back to the requesting physician by way of shared Medical record or letter to requesting physician via [place] mail. Sapna Sawyer MD Normal [facility] Estradiol-17Bon 07-02-2021 Estradiol-17B <25 Normal [facility] Comment on above: Result Comment: This test is not suitable for patients receiving treatment with the drug Fulvestrant (Faslodex). The drug causes an interference leading to falsely elevated estradiol results. Menstrual cycle Estradiol reference ranges: Follicular : < 234 pg/mL Ovulation : 41 to 398 pg/mL Luteal : < 342 pg/mL Estradiol reference ranges vary by gestational period: First trimester : 154 to 3243 pg/mL Second trimester : 1561 TO 31342 pg/mL Third trimester : 8285 to >82828 pg/mL Post-menopausal Estradiol reference range: < 41 pg/mL Reference: 1. Estradiol - E2 (Estradiol III) [package insert V 3.0 Georgian]. [facility], [place], [place], October 2015. Performed By: #### F SH, E2, T3, FT4, PROL #### [facility] [address] [place] [phone] #### HPROG #### [facility] [address] [place] [address] FSHon 07-02-2021 FSH 3.6 mU/mL Normal [facility] Comment on above: Result Comment: Refe rence range: Follicular: 3.5-12.5 Midcycle : 4.7-21.5 Luteal : 1.7- 7.7 Post Menopause: 25.8-134.8 Performed By: #### F SH, E2, T3, FT4, PROL #### [facility] [address] [address] #### HPROG #### [facility] [address] [place] [address] Free T4on 07-02-2021 Free T4 [Mass/Vol] 1.4 ng/dL Normal 0.9-1.7 [facility] Comment on above: Performed By: #### F SH, E2, T3, FT4, PROL #### [place] [id number] [place] [address] #### HPROG #### [address] [address] HydroxyProgesteroneon 2021 HydroxyProgesterone 11.01 ng/dL Normal <=206.00 [facility] Comment on above: Result Comment: (NOT E) INTERPRETIVE INFORMATION for 17-Hydroxyprogesterone in females: Follicular 15 to 70 ng/dL Luteal 35 to 290 ng/dL REFERENCE INTERVAL: 17-Hydroxyprogesterone Qnt, HPLC-MS/MS Access complete set of age- and/or gender-specific reference intervals for this test in the [facility] Test Directory ([employer]). This test was developed and its performance characteristics determined by [facility]. It has not been cleared or approved by the [place] Food and Drug Administration. This test was performed in a CLIA certified laboratory and is intended for clinical purposes. Performed By: [facility] [address] [place] [address] Msw: Samaria Alba MD Performed By: #### F SH, E2, T3, FT4, PROL #### [place] [phone] #### HPROG #### [address] [address] LHon 07-02-2021 LH 2.2 mU/mL Normal [facility] Comment on above: Result Comment: Refe rence range: Follicular: 2.4-12.6 Midcycle : 14.0-95.6 Luteal : 1.0-11.4 Post menopause: 7.7-58.5 Performed By: #### F SH, E2, T3, FT4, PROL #### [place] [address] #### HPROG #### [address] [id number] Prolactinon 07-02-2021 Prolactin 7.1 ng/mL Normal 4.5-26.8 [facility] Comment on above: Performed By: #### F SH, E2, T3, FT4, PROL #### [facility] [address] [id number] #### HPROG #### [facility] [address] [place] [address] T3on 07-02-2021 T3 144 ng/dL Normal 79-165 [facility] Comment on above: Performed By: #### F SH, E2, T3, FT4, PROL #### [facility] [address] [id number] #### HPROG #### [facility] [address] [place] [address] TSHon 07-02-2021 TSH Qn 0.945 m[IU]/L Normal 0.510-4.300 [facility] Comment on above: Result Comment: If t he patient is , TSH reference range varies by gestational period: First Trimester (weeks 9-12): 0.180-2.990 mcIU/mL Second Trimester: 0.110-3.980 mcIU/mL Third Trimester: 0.480-4.710 mcIU/mL Wicho Montes et al. A Practical Approach for the Verifications and Determination of Site- and Trimester-Specific Reference Intervals for Thyroid Function tests in . Thyroid, 2019:29:3:412-420. Mauro E, et al. 2017 Guidelines of the [place] [employer] for the Diagnosis and Management of Thyroid Disease during and the . Thyroid, 2017:27:3:315-389. Reference ranges were not locally established for this patient's age group. The normal values are based on the following source: Lorena W, Carlos V. Reference Ranges for Adults and Children: Pre-analytical Considerations. [facility] Performed By: #### F SH, E2, T3, FT4, PROL #### [facility] [address], [place] [address] #### HPROG #### [facility] [address] [place] [address] Vital Signs Date Time Vital Sign Value Performing Clinician Facility 10-19-2024 14:01-0400 Body mass index (BMI) [Ratio] 44.99 kg/m2 Blake Guevara MD Work Phone: [facility] 10-19-2024 14:01-0400 Body weight 117.03 kg Blake Guevara MD Work Phone: [facility] 10-19-2024 14:01-0400 Diastolic blood pressure 76 mm[Hg] Blake Guevara MD Work Phone: [facility] 10-19-2024 14:01-0400 Systolic blood pressure 120 mm[Hg] Blake Guevara MD Work Phone: [facility] 09-27-2024 14:47-0400 Body mass index (BMI) [Ratio] 44.99 kg/m2 Blake Guevara MD Work Phone: [facility] 09-27-2024 14:47-0400 Body weight 117.03 kg Blake Guevara MD Work Phone: [facility] 09-27-2024 14:47-0400 Diastolic blood pressure 76 mm[Hg] Blake Guevara MD Work Phone: [facility] 09-27-2024 14:47-0400 Systolic blood pressure 120 mm[Hg] Blake Guevara MD Work Phone: [facility] 09-20-2024 13:29-0400 Body height 163.3 cm [facility] 09-20-2024 13:29-0400 Body mass index (BMI) [Ratio] 44.1 kg/m2 [facility] 09-20-2024 13:29-0400 Body weight 117.9 kg [facility] 09-20-2024 13:29-0400 Diastolic blood pressure 79 mm[Hg] [facility] 09-20-2024 13:29-0400 Heart rate 77 /min [facility] 09-20-2024 13:29-0400 Respiratory rate 20 /min [facility] 09-20-2024 13:29-0400 SaO2% (BldA) [Mass fraction] 99 % [facility] 09-20-2024 13:29-0400 Systolic blood pressure 124 mm[Hg] [facility] 10-29-2023 04:31-0400 Diastolic blood pressure 61 mm[Hg] Troy [facility] 10-29-2023 04:31-0400 Heart rate 88 /min Troy [facility] 10-29-2023 04:31-0400 Mean blood pressure 84 mm[Hg] Troy [facility] 10-29-2023 04:31-0400 Respiratory rate 18 /min Troy [facility] 10-29-2023 04:31-0400 SaO2% (BldA) [Mass fraction] 99 % Troy [facility] 10-29-2023 04:31-0400 Systolic blood pressure 129 mm[Hg] Troy [facility] 10-29-2023 04:16-0400 Diastolic blood pressure 68 mm[Hg] Troy [facility] 10-29-2023 04:16-0400 Heart rate 89 /min Troy [facility] 10-29-2023 04:16-0400 Mean blood pressure 86 mm[Hg] Troy [facility] 10-29-2023 04:16-0400 Respiratory rate 19 /min [facility] 10-29-2023 04:16-0400 SaO2% (BldA) [Mass fraction] 99 % [facility] 10-29-2023 04:16-0400 Systolic blood pressure 122 mm[Hg] [facility] 10-29-2023 03:54-0400 Diastolic blood pressure 62 mm[Hg] [facility] 10-29-2023 03:54-0400 Heart rate 89 /min [facility] 10-29-2023 03:54-0400 Mean blood pressure 76 mm[Hg] [facility] 10-29-2023 03:54-0400 Respiratory rate 16 /min [facility] 10-29-2023 03:54-0400 SaO2% (BldA) [Mass fraction] 100 % [facility] 10-29-2023 03:54-0400 Systolic blood pressure 103 mm[Hg] [facility] 10-29-2023 02:30-0400 Body temperature 98.78 [degF] [facility] 10-29-2023 02:30-0400 Heart rate 85 /min [facility] 10-29-2023 02:30-0400 Respiratory rate 18 /min [facility] 10-05-2023 22:20-0400 Blood Pressure Location Kaylinn Dokken [facility] 10-05-2023 22:20-0400 Diastolic blood pressure 59 mm[Hg] Kaylinn Dokken [facility] 10-05-2023 22:20-0400 Heart rate 73 /min Kaylinn Dokken [facility] 10-05-2023 22:20-0400 Mean blood pressure 66 mm[Hg] Kaylinn Dokken [facility] 10-05-2023 22:20-0400 SaO2% (BldA) [Mass fraction] 98 % Kaylinn Dokken [facility] 10-05-2023 22:20-0400 Systolic blood pressure 81 mm[Hg] Kaylinn Dokken [facility] 10-05-2023 21:31-0400 Blood Pressure Location Kaylinn Dokken [facility] 10-05-2023 21:31-0400 Diastolic blood pressure 57 mm[Hg] Kaylinn Dokken [facility] 10-05-2023 21:31-0400 Heart rate 71 /min Kaylinn Dokken [facility] 10-05-2023 21:31-0400 Mean blood pressure 75 mm[Hg] Kaylinn Dokken [facility] 10-05-2023 21:31-0400 Respiratory rate 16 /min Kaylinn Dokken [facility] 10-05-2023 21:31-0400 SaO2% (BldA) [Mass fraction] 97 % Kaylinn Dokken [facility] 10-05-2023 21:31-0400 Systolic blood pressure 111 mm[Hg] Kaylinn Dokken [facility] 10-05-2023 20:38-0400 Body temperature 97.7 [degF] Kaylinn Dokken [facility] 10-05-2023 20:38-0400 Diastolic blood pressure 69 mm[Hg] Anainn Dokken [facility] 10-05-2023 20:38-0400 Heart rate 79 /min Kaylinn Dokken [facility] 10-05-2023 20:38-0400 Respiratory rate 18 /min Lilian Dokken [facility] 10-05-2023 20:38-0400 SaO2% (BldA) [Mass fraction] 99 % Lliian Dokken [facility] 10-05-2023 20:38-0400 Systolic blood pressure 113 mm[Hg] Anainn Dokken [facility] 08-11-2023 00:19-0400 Diastolic blood pressure 53 mm[Hg] [facility] 08-11-2023 00:19-0400 Heart rate 83 /min [facility] 08-11-2023 00:19-0400 Mean blood pressure 68 mm[Hg] [facility] 08-11-2023 00:19-0400 Respiratory rate 18 /min [facility] 08-11-2023 00:19-0400 SaO2% (BldA) [Mass fraction] 99 % [facility] 08-11-2023 00:19-0400 Systolic blood pressure 98 mm[Hg] [facility] 08-10-2023 23:43-0400 Heart rate 86 /min [facility] 08-10-2023 23:43-0400 Respiratory rate 16 /min [facility] 08-10-2023 23:31-0400 Diastolic blood pressure 59 mm[Hg] [facility] 08-10-2023 23:31-0400 Heart rate 92 /min [facility] 08-10-2023 23:31-0400 Mean blood pressure 74 mm[Hg] [facility] 08-10-2023 23:31-0400 Respiratory rate 16 /min [facility] 08-10-2023 23:31-0400 SaO2% (BldA) [Mass fraction] 97 % [facility] 08-10-2023 23:31-0400 Systolic blood pressure 104 mm[Hg] [facility] 08-10-2023 22:54-0400 Body temperature 98.78 [degF] [facility] 08-10-2023 22:54-0400 Diastolic blood pressure 76 mm[Hg] [facility] 08-10-2023 22:54-0400 Heart rate 96 /min [facility] 08-10-2023 22:54-0400 SaO2% (BldA) [Mass fraction] 98 % [facility] 08-10-2023 22:54-0400 Systolic blood pressure 126 mm[Hg] [facility] 07-11-2023 12:01-0500 Body temperature 97.81 [degF] Yahir Chacon DO Work Phone: [facility] 07-11-2023 12:01-0500 Diastolic blood pressure 64 mm[Hg] Yahir Chacon DO Work Phone: [facility] 07-11-2023 12:01-0500 Heart rate 85 /min Yahir Chacon DO Work Phone: [facility] 07-11-2023 12:01-0500 SaO2% (BldA) [Mass fraction] 98 % Yahir Chacon DO Work Phone: [facility] 07-11-2023 12:01-0500 Systolic blood pressure 100 mm[Hg] Yahir Chacon DO Work Phone: [facility] 06-23-2023 01:07-0500 Blood Pressure Location [facility] 06-23-2023 01:07-0500 Diastolic blood pressure 89 mm[Hg] [facility] 06-23-2023 01:07-0500 Heart rate 78 /min [facility] 06-23-2023 01:07-0500 Mean blood pressure 100 mm[Hg] [facility] 06-23-2023 01:07-0500 Respiratory rate 16 /min [facility] 06-23-2023 01:07-0500 SaO2% (BldA) [Mass fraction] 98 % [facility] 06-23-2023 01:07-0500 Systolic blood pressure 122 mm[Hg] [facility] 06-22-2023 23:00-0500 Diastolic blood pressure 81 mm[Hg] [facility] 06-22-2023 23:00-0500 Heart rate 87 /min [facility] 06-22-2023 23:00-0500 Mean blood pressure 98 mm[Hg] [facility] 06-22-2023 23:00-0500 SaO2% (BldA) [Mass fraction] 97 % [facility] 06-22-2023 23:00-0500 Systolic blood pressure 133 mm[Hg] [facility] 06-22-2023 21:53-0500 Blood Pressure Location [facility] 06-22-2023 21:53-0500 Diastolic blood pressure 59 mm[Hg] [facility] 06-22-2023 21:53-0500 Heart rate 98 /min [facility] 06-22-2023 21:53-0500 Mean blood pressure 79 mm[Hg] [facility] 06-22-2023 21:53-0500 Respiratory rate 16 /min [facility] 06-22-2023 21:53-0500 SaO2% (BldA) [Mass fraction] 98 % [facility] 06-22-2023 21:53-0500 Systolic blood pressure 118 mm[Hg] [facility] 06-22-2023 20:51-0500 Body temperature 98.24 [degF] [facility] 06-22-2023 20:51-0500 Heart rate 99 /min Troy Treadwell [facility] 06-19-2023 14:57-0500 Blood Pressure Location EDNA KIDD [facility] 06-19-2023 14:57-0500 Body temperature 98.42 [degF] EDNA TRINIDADTIZ [facility] 06-19-2023 14:57-0500 Diastolic blood pressure 78 mm[Hg] EDNA KIDD [facility] 06-19-2023 14:57-0500 Heart rate 95 /min EDNA EVAN [facility] 06-19-2023 14:57-0500 SaO2% (BldA) [Mass fraction] 97 % EDNA KIDD [facility] 06-19-2023 14:57-0500 Systolic blood pressure 119 mm[Hg] LA CROSSE EVAN [facility] 06-12-2023 13:25-0500 Body temperature 98.3 [degF] Rosalee Mcleod Other [facility] Other 06-12-2023 13:25-0500 Body weight 90.72 kg Rosalee Mcleod Other [facility] 06-12-2023 13:25-0500 Diastolic blood pressure 81 mm[Hg] Rosalee Mcleod Other [facility] 06-12-2023 13:25-0500 SaO2% (BldA) [Mass fraction] 97 % Rosalee Mcleod Other [facility] 06-12-2023 13:25-0500 Systolic blood pressure 151 mm[Hg] Rosalee Mcleod Other [facility] 04-04-2023 12:16-0500 Body temperature 98.06 [degF] [facility] 04-04-2023 12:16-0500 Diastolic blood pressure 75 mm[Hg] [facility] 04-04-2023 12:16-0500 Heart rate 89 /min [facility] 04-04-2023 12:16-0500 Respiratory rate 16 /min [facility] 04-04-2023 12:16-0500 SaO2% (BldA) [Mass fraction] 98 % [facility] 04-04-2023 12:16-0500 Systolic blood pressure 145 mm[Hg] [facility] 01-29-2023 12:46-0400 Body temperature 98.24 [degF] [facility] 01-29-2023 12:46-0400 Diastolic blood pressure 80 mm[Hg] [facility] 01-29-2023 12:46-0400 Heart rate 70 /min [facility] 01-29-2023 12:46-0400 Respiratory rate 18 /min [facility] 01-29-2023 12:46-0400 SaO2% (BldA) [Mass fraction] 98 % [facility] 01-29-2023 12:46-0400 Systolic blood pressure 127 mm[Hg] [facility] 01-16-2023 15:39-0400 Body temperature 98.24 [degF] Gus Mcgowan [facility] 01-16-2023 15:39-0400 Diastolic blood pressure 85 mm[Hg] Gus Mcgowan [facility] 01-16-2023 15:39-0400 Heart rate 102 /min Gus Mcgowan [facility] 01-16-2023 15:39-0400 Respiratory rate 16 /min Gus Mcgowan [facility] 01-16-2023 15:39-0400 SaO2% (BldA) [Mass fraction] 99 % Gus Mcgowan [facility] 01-16-2023 15:39-0400 Systolic blood pressure 126 mm[Hg] Gus Mcgowan [facility] 12-19-2022 11:20-0400 Body temperature 97.9 [degF] DO Minal Petznick Work Phone: [facility] 12-19-2022 11:20-0400 Diastolic blood pressure 76 mm[Hg] DO Minal Petznick Work Phone: [facility] 12-19-2022 11:20-0400 Heart rate 79 /min DO Minal Petznick Work Phone: [facility] 12-19-2022 11:20-0400 Respiratory rate 18 /min DO Minal Petznick Work Phone: [facility] 12-19-2022 11:20-0400 SaO2% (BldA) [Mass fraction] 98 % DO Minal Petznick Work Phone: [facility] 12-19-2022 11:20-0400 Systolic blood pressure 158 mm[Hg] DO Minal Petznick Work Phone: [facility] 12-19-2022 11:19-0400 Body height 165.1 cm DO Minal Petznick Work Phone: [facility] 12-19-2022 11:19-0400 Body weight 95.5 kg DO Minal Petznick Work Phone: [facility] 11-29-2022 09:22-0400 Body temperature 98.06 [degF] Nikolay Valencia [facility] 11-29-2022 09:22-0400 Diastolic blood pressure 81 mm[Hg] Nikolay Valencia [facility] 11-29-2022 09:22-0400 Heart rate 84 /min Nikolay Valencia [facility] 11-29-2022 09:22-0400 Respiratory rate 16 /min Nikolay Valencia [facility] 11-29-2022 09:22-0400 SaO2% (BldA) [Mass fraction] 99 % Nikolay Valencia [facility] 11-29-2022 09:22-0400 Systolic blood pressure 125 mm[Hg] Nikolay Valencia [facility] 11-25-2022 11:20-0400 Body temperature 98.06 [degF] Satish Thao [facility] 11-25-2022 11:20-0400 Diastolic blood pressure 77 mm[Hg] Satish Thao [facility] 11-25-2022 11:20-0400 Respiratory rate 16 /min Satish Thao [facility] 11-25-2022 11:20-0400 SaO2% (BldA) [Mass fraction] 99 % Satish Thao [facility] 11-25-2022 11:20-0400 Systolic blood pressure 117 mm[Hg] Satish Master [facility] 11-14-2022 23:52-0400 Diastolic blood pressure 69 mm[Hg] [facility] 11-14-2022 23:52-0400 Heart rate 88 /min [facility] 11-14-2022 23:52-0400 Hourly Rounding [facility] 11-14-2022 23:52-0400 Respiratory rate 18 /min [facility] 11-14-2022 23:52-0400 SaO2% (BldA) [Mass fraction] 97 % [facility] 11-14-2022 23:52-0400 Systolic blood pressure 129 mm[Hg] [facility] 11-14-2022 23:12-0400 Body temperature 98.24 [degF] [facility] 11-14-2022 23:12-0400 bodymassindex 1.96 [facility] Comment on above: Result Comment: ^~:![facility] 11-14-2022 23:12-0400 Diastolic blood pressure 82 mm[Hg] [facility] 11-14-2022 23:12-0400 Heart rate 66 /min [facility] 11-14-2022 23:12-0400 Height/Length Percentile 54.09 [facility] Comment on above: Result Comment: ^~:![facility] 11-14-2022 23:12-0400 Height/Length Z-Score 0.10 [facility] Comment on above: Result Comment: ^~:![facility] 11-14-2022 23:12-0400 Hourly Rounding [facility] 11-14-2022 23:12-0400 Respiratory rate 16 /min [facility] 11-14-2022 23:12-0400 SaO2% (BldA) [Mass fraction] 97 % [facility] 11-14-2022 23:12-0400 Systolic blood pressure 128 mm[Hg] [facility] 11-14-2022 23:12-0400 weight 2.16 [facility] Comment on above: Result Comment: ^~:![facility] 11-14-2022 23:12-0400 Weight Percentile 98.45 % [facility] Comment on above: Result Comment: ^~:!Percentile Source -[facility] 10-29-2022 20:05-0400 Body height 165.1 cm DO Minal Petznick Work Phone: [facility] 10-29-2022 20:05-0400 Body temperature 98 [degF] DO Minal Petznick Work Phone: [phone] [address] 10-29-2022 20:05-0400 Body weight 99.2 kg DO Minal Petznick Work Phone: [phone] [address] 10-29-2022 20:05-0400 Diastolic blood pressure 66 mm[Hg] DO Minal Petznick Work Phone: [facility] 10-29-2022 20:05-0400 Heart rate 94 /min DO Minal Petznick Work Phone: [facility] 10-29-2022 20:05-0400 Respiratory rate 20 /min DO Minal Petznick Work Phone: [facility] 10-29-2022 20:05-0400 SaO2% (BldA) [Mass fraction] 100 % DO Minal Petznick Work Phone: [facility] 10-29-2022 20:05-0400 Systolic blood pressure 127 mm[Hg] DO Minal Petznick Work Phone: [facility] Encounters Encounter Date Encounter Type Care Provider Facility Start: 01-02-2025 End: 01-03-2025 Emergency department patient visit Fay Loco Facility:[facility] Start: 01-01-2025 End: 01-01-2025 Emergency department patient visit Tim Knight Facility:[facility] Start: 11-25-2024 End: 11-25-2024 Emergency department patient visit Froylan Guaman [facility] Start: 10-19-2024 End: 10-19-2024 Office outpatient visit 10 minutes Blake Guevara MD Work Phone: [facility] Comment on above: PCOS (polycystic ova chip syndrome); General counseling and advice on contraceptive management; Encounter for gynecological examination Start: 10-19-2024 End: 10-19-2024 Patient encounter status Blake Guevara MD Work Phone: [facility] Start: 10-19-2024 End: 10-19-2024 ambulatory BLAKE GUEVARA Not Available Start: 09-27-2024 End: 09-27-2024 Patient encounter status Blake Guevara MD Work Phone: [facility] Start: 09-27-2024 End: 09-27-2024 Periodic preventive med est patient 18-39 yrs Blake Guevara MD Work Phone: [facility] Comment on above: Encounter for screen ing for cervical cancer (Primary Dx); Encounter for gynecological examination without abnormal finding; PCOS (polycystic ovarian syndrome) Start: 09-27-2024 End: 09-27-2024 ambulatory BLAKE GUEVARA Not Available Start: 09-20-2024 End: 09-20-2024 ambulatory [facility] Work Phone: Start: 09-20-2024 End: 09-20-2024 Patient encounter procedure [facility] Work Phone: Start: 10-29-2023 End: 10-29-2023 Emergency department patient visit Troy Treadwell [facility] Start: 10-05-2023 End: 10-05-2023 Emergency department patient visit Deana Mohan [facility] Start: 08-10-2023 End: 08-11-2023 Emergency department patient visit Troy Treadwell [facility] Start: 07-11-2023 End: 07-11-2023 Office outpatient visit 15 minutes Yahir Grupo Chacon DO Work Phone: [facility] Comment on above: Viral URI (Primary D x) Start: 06-22-2023 End: 06-23-2023 Emergency department patient visit Troy Treadwell [facility] Start: 06-19-2023 End: 06-19-2023 ambulatory [facility] Facility: [place] Start: 06-19-2023 End: 06-19-2023 Patient encounter procedure [facility] Start: 06-12-2023 End: 06-12-2023 ambulatory Rosalee Mcleod Other [facility] Other Start: 06-12-2023 Office outpatient vi sit 15 minutes Rosalee Mcleod [facility] Start: 04-04-2023 End: 04-04-2023 [facility] Start: 03-19-2023 End: 03-19-2023 Emergency department patient visit Teja Beth Facility:[facility] Start: 01-29-2023 End: 01-29-2023 [facility] Start: 01-16-2023 End: 01-16-2023 Emergency department patient visit Gus Mcgowan [facility] Start: 12-19-2022 End: 12-19-2022 Emergency department patient visit Teja Carrillomond Facility:[facility] Start: 12-19-2022 End: 12-19-2022 Emergency department patient visit DO Minal Delgadogabrielanik Work Phone: [facility] Work Phone: Start: 11-29-2022 End: 11-29-2022 Emergency department patient visit Nikolay Valencia [facility] Start: 11-25-2022 End: 11-25-2022 Emergency department patient visit Satish Thao [facility] Start: 11-14-2022 End: 11-14-2022 Emergency department patient visit Tim Knight [facility] Start: 11-09-2022 End: 11-09-2022 Emergency department patient visit Troy Treadwell Facility:[facility] Start: 10-29-2022 End: 10-29-2022 Emergency department patient visit Toya Platt Facility:[facility] Start: 10-29-2022 End: 10-29-2022 Emergency department patient visit DO Minal Newman Work Phone: [facility] Work Phone: Start: 08-26-2022 End: 08-26-2022 ambulatory ROSA ETIENNE . Facility:[facility] Start: 08-04-2022 End: 08-04-2022 Emergency department patient visit [facility] Ricki [facility] Start: 07-13-2022 End: 07-13-2022 ambulatory STEFANIE WILSON . Facility:[facility] Start: 06-17-2022 End: 06-17-[address] DOCTOR BENITEZ Facility:[facility] Start: 06-08-2022 End: 06-09-[address] DOCTOR BENITEZ Facility:[facility] Start: 05-20-2022 End: 05-20-2022 Emergency department patient visit [facility] Start: 03-06-2022 End: 03-06-2022 ambulatory Adrianna Ashford PA-C Work Phone: [facility] Comment on above: Pituitary hypoplasia (Primary Dx) Start: 03-06-2022 End: 03-06-2022 Telemedicine consultation with patient Adriannaaditi Ashford PA-C Work Phone: [facility] Start: 01-19-2022 End: 01-19-2022 Subsequent hospital visit by physician Mri [facility] (I-Stat/1.5t) Work Phone: [facility] Comment on above: Amenorrhea [N91.2] Procedures Date Procedure Procedure Detail Performing Clinician Start: 09-27-2024 Cortisol total Amalia burgess DO Work Phone: Start: 09-27-2024 SPECIMEN STATUS REPORT Amalia Jett DO Work Phone: Start: 09-27-2024 IGP, APT HPV,RFX 16/18,45 Blake Guevara MD Work Phone: Start: 12-19-2022 SARS-CoV-2, Influenz a & RSV (PCR) DO Minal Newman Work Phone: Plan of Treatment Date Care Activity Detail Author Start: 01-29-2025 Influenza vaccination Influenz a Vaccine (Season Ended) [facility] Start: 10-19-2024 End: 10-19-2024 Patient encounter procedure 10/19/2024 2:00 PM EDT [facility] Visit [facility] [facility] [address] [place] [address] Blake Guevara MD [address] [place] [address] [facility] Start: 10-19-2024 End: 10-19-2024 Professional / ancillary services management 10/19/2024 1:00 PM EDT Ancillary Procedure [facility] [address] [place] [address] [facility] Start: 09-27-2024 End: 09-27-2025 Insulin, fasting Insulin, fasting Lab Routine PCOS (polycystic ovarian syndrome) Expected: 09/27/2024 (Approximate), Expires: 09/27/2025 [facility] Comment on above: Expected: 09/27/2024 (Approximate), Expires: 09/27/2025 Start: 09-27-2024 End: 09-27-2025 PCOS Diagnostic Profile PCOS Diagnostic Profile Lab Routine Encounter for screening for cervical cancer Expected: 09/27/2024 (Approximate), Expires: 09/27/2025 [facility] Work Phone: Comment on above: Expected: 09/27/2024 (Approximate), Expires: 09/27/2025 Start: 09-27-2024 End: 09-27-2025 Progesterone Progesterone Lab Routine Encounter for screening for cervical cancer Expected: 09/27/2024 (Approximate), Expires: 09/27/2025 [facility] Comment on above: Expected: 09/27/2024 (Approximate), Expires: 09/27/2025 Start: 01-29-2023 Influenza vaccination Influenza Vacc ine (#1) [facility] Start: 01-29-2022 Influenza vaccination INFLUENZA (#1) [facility] Start: 2021 Urine microalbumin profile DTAP,TDAP,TD (1 - Tdap) [facility] Start: 05-31-2021 DEPRESSION ASSESSMENT DEPRESSION ASS ESSMENT [facility] Start: 2020 CHLAMYDIA SCREENING (18-24) CHLAMYDIA SCREENING (18-24) [facility] Start: 2020 GC (GONORRHEA) SCREE GENARO (18-24) GC (GONORRHEA) SCREENING (18-24) [facility] Start: 2020 HEPATITIS C SCREENING HEPATITIS C SC REENING [facility] Start: 2020 HIV SCREENING HIV SCREENING [facility] Start: 2016 PEDS TO ADULT TRANSI TION ANNUAL ASSESSMENT PEDS TO ADULT TRANSITION ANNUAL ASSESSMENT [facility] Start: 2014 Adult depression screening assessment DEPRESSION SCREENING [facility] Start: 2014 PEDS TO ADULT TRANSI TION INITIAL DISCUSSION PEDS TO ADULT TRANSITION INITIAL DISCUSSION [facility] Start: 2013 HPV VACCINE (1 - 2-d ose series) HPV VACCINE (1 - 2-dose series) [facility] Start: 2012 MENINGOCOCCAL B: Consider based on risk (1 of 2 - Risk Bexsero 2-dose series) MENINGOCOCCAL B: Consider based on risk (1 of 2 - Risk Bexsero 2-dose series) [facility] Start: 05-22-2003 COVID-19 VACCINE (#1) COVID-19 VACCI NE (#1) [facility] Start: 2002 HEPATITIS B (1 of 3 - 3-dose series) HEPATITIS B (1 of 3 - 3-dose series) [facility] Cortisol Cortisol Lab Tonny hoskins PCOS (polycystic ovarian syndrome) Ordered: 09/27/2024 [facility] Work Phone: Comment on above: Ordered: 09/27/2024 Hemoglobin A1c/Hemoglobin.total in Blood Hemoglobin A1c Lab Routine PCOS (polycystic ovarian syndrome) Ordered: 09/27/2024 [facility] Comment on above: Ordered: 09/27/2024 Mri brain brain stem w/o w/contrast material MRI PITUITARY WO/W IVCON Radiology Routine Amenorrhea 01/19/2022 4:02 PM EDT [facility] Work Phone: Patient [facility] Work Phone: Patient referral [facility] Work Phone: [facility] Immunizations Immunization Date Immunization Notes Care Provider Fa cili 10-22-2020 Pfizer Purple Cap SARS-CoV-2 Vaccination Yahir Chacon DO Work Phone: [facility] 10-01-2020 Pfizer Purple Cap SARS-CoV-2 Vaccination Yahirry Chacon DO Work Phone: [facility] 12-29-2019 meningococcal polysaccharide (groups A, C, Y and W-135) diphtheria toxoid conjugate vaccine (MCV4P) Yahir Chacon DO Work Phone: [facility] 03-15-2015 influenza, seasonal, injectable, preservative free Yahir Chacon DO Work Phone: [facility] 03-15-2015 influenza virus vacc ine, unspecified formulation Yaihr Chacon DO Work Phone: [facility] 01-05-2015 meningococcal polysaccharide (groups A, C, Y and W-135) diphtheria toxoid conjugate vaccine (MCV4P) Yahri Chacon DO Work Phone: [facility] 01-05-2015 tetanus toxoid, redu cris diphtheria toxoid, and acellular pertussis vaccine, adsorbed Yahir Chacon DO Work Phone: [facility] 04-04-2014 influenza, seasonal, injectable, preservative free Yahir Chacon DO Work Phone: [facility] 09-13-2007 diphtheria, tetanus toxoids and acellular pertussis vaccine, unspecified formulation Yahir Chacon DO Work Phone: [facility] 09-13-2007 measles, mumps and r ubella virus vaccine Yahir Chacon DO Work Phone: [facility] 09-13-2007 poliovirus vaccine, inactivated Yahir Chacon DO Work Phone: [facility] 09-13-2007 varicella virus vaccine Anth ry Chacon DO Work Phone: [facility] 06-04-2004 diphtheria, tetanus toxoids and acellular pertussis vaccine, unspecified formulation Yahir Chacon DO Work Phone: [facility] 06-04-2004 haemophilus influenz ae type b vaccine, conjugate unspecified formulation Yahir Chacon DO Work Phone: [facility] 06-04-2004 poliovirus vaccine, inactivated Yahir Chacon DO Work Phone: [facility] 02-27-2004 haemophilus influenz ae type b vaccine, conjugate unspecified formulation Yahir Chacon DO Work Phone: [facility] 02-27-2004 hepatitis B vaccine, pediatric or pediatric/adolescent dosage Yahir Chacon DO Work Phone: [facility] 02-27-2004 pneumococcal conjuga te vaccine, 7 valent Yahir Chacon DO Work Phone: [facility] 01-22-2004 varicella virus vaccine Anth ry Chacon DO Work Phone: [facility] 11-27-2003 measles, mumps and r ubella virus vaccine Yahir Chacon DO Work Phone: [facility] 05-08-2003 diphtheria, tetanus toxoids and acellular pertussis vaccine, unspecified formulation Yahir Chacon DO Work Phone: [facility] 05-08-2003 pneumococcal conjuga te vaccine, 7 valent Yahir Tesmond DO Work Phone: [facility] 03-13-2003 diphtheria, tetanus toxoids and acellular pertussis vaccine, unspecified formulation Yahir Tesmond DO Work Phone: [facility] 03-13-2003 haemophilus influenz ae type b conjugate and Hepatitis B vaccine Yahir Tesmond DO Work Phone: [facility] 03-13-2003 pneumococcal conjuga te vaccine, 7 valent Yahir Tesmond DO Work Phone: [facility] 03-13-2003 poliovirus vaccine, inactivated Yahir Tesmond DO Work Phone: [facility] 01-16-2003 diphtheria, tetanus toxoids and acellular pertussis vaccine, unspecified formulation Yahir Ines DO Work Phone: [facility] 01-16-2003 haemophilus influenz ae type b conjugate and Hepatitis B vaccine Yahir Tesmond DO Work Phone: [facility] 01-16-2003 pneumococcal conjuga te vaccine, 7 valent Yahir Ines DO Work Phone: [facility] 01-16-2003 poliovirus vaccine, inactivated Yahir Tesmond DO Work Phone: [facility] Payers Date Payer [id number] [id number] [facility] [id number] 2023 Private Health Insurance [id number] 2023 Unknown [id number] 2022 Self-pay [id number] 2021 Unknown [id number] [id number]. [id number] 2020 [facility] MEDICAID [id number] 2020-Present [phone] [address] [place] [address] Medicaid [id number] 2002 Unknown [id number] 2.16.840.1.503610.3.579. 2.173 2002 Unknown [id number] 2.16.840.1.238135.3.579. 2.174 2002 Unknown [id number] 2.16.840.1.644642.3.579. 2.593 2002 Unknown [id number] 2.16.840.1.181464.3.579. 2.593 2002 Unknown [id number] 2.16.840.1.561093.3.579. 2.593 2002 Unknown [id number] 2.16.840.1.868654.3.579. 2.593 2002 Unknown [id number] 2.16.840.1.671227.3.579. 2.727 2002 Unknown [id number] 2.16.840.1.874237.3.579. 2.727 2002 Unknown [id number] 2.16.840.1.570655.3.579. 2.727 2002 Unknown [id number] 2.16.840.1.046576.3.579. 2.727 2002 Unknown [id number] 2.16.840.1.990897.3.579. 2. 2002 Unknown [id number] 2.16.840.1.901854.3.579. 2.72 2002 Unknown [id number] 2.16.840.1.711866.3.579. 2. 2002 Unknown [id number] 2.16.840.1.416746.3.579. 2. 2002 Unknown [id number] 2.16.840.1.530876.3.579. 2. 2002 Unknown [id number] 2.16.840.1.135289.3.579. 2. 2002 Unknown [id number] 2.16.840.1.468701.3.579. 2. 2002 Unknown [id number] 2.16.840.1.422665.3.579. 2. 2002 Unknown [id number] 2.16.840.1.901986.3.579. 2.1258 2002 Unknown [id number] 2.16.840.1.714560.3.579. 2.1259 2002 Unknown [id number] 2.16.840.1.532678.3.579. 2.1258 2002 Unknown [id number] 2.16.840.1.124416.3.579. 2.72 2002 Unknown [id number] 2.16.840.1.833852.3.579. 2. 2002 Unknown [id number] 2.16.840.1.911641.3.579. 2. 2002 Unknown [id number] 2.16.840.1.809438.3.579. 2. 2002 Unknown [id number] 2.16.840.1.480405.3.579. 2.727 1959 Unknown [id number] 1959 Unknown [id number] 1959 Unknown [id number] Private Health Insurance [employer] [id number] Unknown [employer] [id number] Unknown [id number] 2.16.840.1.206257.3.579. 2.531 Unknown [id number] 2.16.840.1.073696.3.579. 2.531 Unknown [id number] 2.16.840.1.093593.3.579. 2.531 Unknown [id number] 2.16.840.1.861598.19 Unknown [place] [employer]/BS [id number] Social History Date Type Detail Facility Start: 06-20-2021 End: 11-12-2022 Tobacco smoking status NHIS Never smoked tobacco [facility] Comment on above: Denies. Start: 06-20-2021 End: 11-12-2022 Tobacco use and exposure Smokeless tobacco non-user [facility] Start: 07-02-2021 Alcohol intake Not Asked [facility] Start: 07-02-2021 History SDOH Alcohol Comment none [facility] Start: 2002 Sex Assigned At Not on file C [facility] Start: 01-09-2022 End: 01-19-2022 Exposure to SARS-CoV-2 (event) Not sure [facility] Start: 2002 Sex Assigned At Female F [facility] Tobacco [facility] Comment on above: Denies. denies Tobacco smoking status [facility] Start: 11-19-2022 End: 10-19-2023 Sex Assigned At Female [facility] Start: 11-12-2022 Tobacco smoking status Never [facility] Comment on above: Denies. Start: 07-11-2023 End: 10-19-2024 Alcohol intake Lifetime non-drinker (finding) [facility] Start: 11-19-2022 End: 10-19-2023 History of Social function [facility] Within the last year , have you been afraid of your partner or ex-partner? No [facility] Are you now , , , , never or living with a partner? Living with partner [facility] How often to you hav e a drink containing alcohol? Never [facility] How hard is it for y ou to pay for the very basics like food, housing, medical care, and heating Somewhat hard [facility] Do you feel stress - tense, restless, nervous, or anxious, or unable to sleep at night because your mind is troubled all the time - these days [OSQ] To some extent [facility] (I/We) worried wheth er (my/our) food would run out before (I/we) got money to buy more. Sometimes true [facility] Start: 12-01-2022 Alcohol Comment caffeine: 2-3 cups per day [facility] Start: 08-12-2022 Gender identity Identifies as female gender (finding) [facility] Start: 08-10-2023 End: 09-20-2024 Tobacco smoking status Light tobacco smoker (finding) [facility] Start: 10-29-2023 Tobacco smoking status Ex-smoker (fi nding) [facility] Start: 10-09-2013 End: 09-20-2024 Sex Female (finding) [facility] Functional Status Date Assessment Result Facility 10-29-2023 Functional Status N/A [facility] 10-05-2023 Functional Status N/A [facility] 08-10-2023 Functional Status N/A [facility] 06-22-2023 Functional Status N/A [facility] 06-19-2023 Functional Status N/A [facility] 04-04-2023 Functional Status N/A [facility] 01-29-2023 Functional Status N/A [facility] 01-16-2023 Functional Status N/A [facility] 11-29-2022 Functional Status N/A [facility] 11-25-2022 Functional Status N/A [facility] 11-14-2022 Functional Status N/A [facility] Clinical Notes 08-29-2013 to 01-03-2025 Blake Guevara MD - 10/19/2024 2:00 PM EDTPlarry Guevara MD - 09/27/2024 2:30 PM EDT Note Date & Type Note Facility 01-03-2025 Note ED Patient Education Note Neurology Migraine Headache A migraine headache is an intense pulsing or throbbing pain on one or both sides of the head. Migraine headaches may also cause other symptoms, such as nausea, vomiting, and sensitivity to light and noise. A migraine headache can last from 4 hours to 3 days. Talk with your health care provider about what things may bring on (trigger) your migraine headaches. What are the causes? The exact cause is not known. However, a migraine may be caused when nerves in the brain get irritated and release chemicals that cause blood vessels to become inflamed. This inflammation causes pain. Migraines may be triggered or caused by: ??? Smoking. ??? Medicines, such as: ? Nitroglycerin, which is used to treat chest pain. ? control pills. ? Estrogen. ? Certain blood pressure medicines. ??? Foods or drinks that contain nitrates, glutamate, aspartame, MSG, or tyramine. ??? Certain foods or drinks, such as aged cheeses, chocolate, alcohol, or caffeine. ??? Doing physical activity that is very hard. Other triggers may include: ??? Menstruation. ??? . ??? Hunger. ??? Stress. ??? Getting too much or too little sleep. ??? Weather changes. ??? Tiredness (fatigue). What increases the risk? The following factors may make you more likely to have migraine headaches: ??? Being between the ages of 25-55 years old. ??? Being female. ??? Having a family history of migraine headaches. ??? Being . ??? Having a mental health condition, such as depression or anxiety. ??? Being obese. What are the signs or symptoms? The main symptom of this condition is pulsing or throbbing pain. This pain may: ??? Happen in any area of the head, such as on one or both sides. ??? Make it hard to do daily activities. ??? Get worse with physical activity. ??? Get worse around bright lights, loud noises, or smells. Other symptoms may include: ??? Nausea. ??? Vomiting. ??? Dizziness. Before a migraine headache starts, you may get warning signs (an aura). An aura may include: ??? Seeing flashing lights or having blind spots. ??? Seeing bright spots, halos, or zigzag lines. ??? Having tunnel vision or blurred vision. ??? Having numbness or a tingling feeling. ??? Having trouble talking. ??? Having muscle weakness. After a migraine ends, you may have symptoms. These may include: ??? Feeling tired. ??? Trouble concentrating. How is this diagnosed? A migraine headache can be diagnosed based on: ??? Your symptoms. ??? A physical exam. ??? Tests, such as: ? A CT scan or an MRI of the head. These tests can help rule out other causes of headaches. ? Taking fluid from the spine (lumbar puncture) to examine it (cerebrospinal fluid analysis, or CSF analysis). How is this treated? This condition may be treated with medicines that: ??? Relieve pain and nausea. ??? Prevent migraines. Treatment may also include: ??? Acupuncture. ??? Lifestyle changes like avoiding foods that trigger migraine headaches. ??? Learning ways to control your body (biofeedback). ??? Talk therapy to help you know and deal with negative thoughts (cognitive behavioral therapy). Follow these instructions at home: Medicines ??? Take medu-zyb-czfggsv and prescription medicines only as told by your provider. ??? Ask your provider if the medicine prescribed to you: ? Requires you to avoid driving or using machinery. ? Can cause constipation. You may need to take these actions to prevent or treat constipation: ? Drink enough fluid to keep your pee (urine) pale yellow. ? Take zjtj-gao-hqnwrow or prescription medicines. ? Eat foods that are high in fiber, such as beans, whole grains, and fresh fruits and vegetables. ? Limit foods that are high in fat and processed sugars, such as fried or sweet foods. Lifestyle ??? Do not drink alcohol. ??? Do not use any products that contain nicotine or tobacco. These products include cigarettes, chewing tobacco, and vaping devices, such as e-cigarettes. If you need help quitting, ask your provider. ??? Get 7?9 hours of sleep each night, or the amount recommended by your provider. ??? Find ways to manage stress, such as meditation, deep breathing, or yoga. ??? Try to exercise regularly. This can help lessen how bad and how often your migraines occur. General instructions ??? Keep a journal to find out what triggers your migraines, so you can avoid those things. For example, write down: ? What you eat and drink. ? How much sleep you get. ? Any change to your diet or medicines. ??? If you have a migraine headache: ? Avoid things that make your symptoms worse, such as bright lights. ? Lie down in a dark, quiet room. ? Do not drive or use machinery. ? Ask your provider what activities are safe for you while you have symptoms. ??? Keep all follow-up visits. Your provider will monitor your s (more content not included)... [facility] 01-01-2025 Note ED Patient Education Note Gastroenterology Abdominal Pain, Adult Pain in the abdomen (abdominal pain) can be caused by many things. In most cases, it gets better with no treatment or by being treated at home. But in some cases, it can be serious. Your health care provider will ask questions about your medical history and do a physical exam to try to figure out what is causing your pain. Follow these instructions at home: Medicines ??? Take hhot-maf-jzorojy and prescription medicines only as told by your provider. ??? Do not take medicines that help you poop (laxatives) unless told by your provider. General instructions ??? Watch your condition for any changes. ??? Drink enough fluid to keep your pee (urine) pale yellow. Contact a health care provider if: ??? Your pain changes, gets worse, or lasts longer than expected. ??? You have severe cramping or bloating in your abdomen, or you vomit. ??? Your pain gets worse with meals, after eating, or with certain foods. ??? You are constipated or have diarrhea for more than 2?3 days. ??? You are not hungry, or you lose weight without trying. ??? You have signs of dehydration. These may include: ? Dark pee, very little pee, or no pee. ? Cracked lips or dry mouth. ? Sleepiness or weakness. ??? You have pain when you pee (urinate) or poop. ??? Your abdominal pain wakes you up at night. ??? You have blood in your pee. ??? You have a fever. Get help right away if: ??? You cannot stop vomiting. ??? Your pain is only in one part of the abdomen. Pain on the right side could be caused by appendicitis. ??? You have bloody or black poop (stool), or poop that looks like tar. ??? You have trouble breathing. ??? You have chest pain. These symptoms may be an emergency. Get help right away. Call 911. ??? Do not wait to see if the symptoms will go away. ??? Do not drive yourself to the hospital. This information is not intended to replace advice given to you by your health care provider. Make sure you discuss any questions you have with your health care provider. Document Revised: 03/03/2023 Document Reviewed: 03/03/2023 [employer] Patient Education ? 2023 [employer] Infectious Disease Sore Throat A sore throat is pain, burning, irritation, or scratchiness in the throat. When you have a sore throat, you may feel pain or tenderness in your throat when you swallow or talk. Many things can cause a sore throat, including: ??? An infection. ??? Seasonal allergies. ??? Dryness in the air. ??? Irritants, such as smoke or pollution. ??? Radiation treatment for cancer. ??? Gastroesophageal reflux disease (GERD). ??? A tumor. A sore throat is often the first sign of another sickness. It may happen with other symptoms, such as coughing, sneezing, fever, and swollen neck glands. Most sore throats go away without medical treatment. Follow these instructions at home: Medicines ??? Take jibl-irj-sstmnhk and prescription medicines only as told by your health care provider. ??? Children often get sore throats. Do not give your child aspirin because of the association with Zechariah's syndrome. ??? Use throat sprays to soothe your throat as told by your health care provider. Managing pain To help with pain, try: ??? Sipping warm liquids, such as broth, herbal tea, or warm water. ??? Eating or drinking cold or frozen liquids, such as frozen ice pops. ??? Gargling with a mixture of salt and water 3?4 times a day or as needed. To make salt water, completely dissolve ??1 tsp (3?6 g) of salt in 1 cup (237 mL) of warm water. ??? Sucking on hard candy or throat lozenges. ??? Putting a cool-mist humidifier in your bedroom at night to moisten the air. ??? Sitting in the bathroom with the door closed for 5?10 minutes while you run hot water in the shower. General instructions ??? Do not use any products that contain nicotine or tobacco. These products include cigarettes, chewing tobacco, and vaping devices, such as e-cigarettes. If you need help quitting, ask your health care provider. ??? Rest as needed. ??? Drink enough fluid to keep your urine pale yellow. ??? Wash your hands often with soap and water for at least 20 seconds. If soap and water are not available, use hand jewelry setter. Contact a health care provider if: ??? You have a fever for more than 2?3 days. ??? You have symptoms that last for more than 2?3 days. ??? Your throat does not get better within 7 days. ??? You have a fever and your symptoms suddenly get worse. Get help right away if: ??? You have difficulty breathing. ??? You cannot swallow fluids, soft foods, or your saliva. ??? You have increased swelling in your throat or neck. ??? You have persistent nausea and vomiting. These symptoms may represent a serious problem that is an emergency. Do not wait to see if the symptoms will go (more content not included)... [facility] 11-25-2024 Hospital Discharge instructions Patient Education 11/25/2024 17:02:02 Urinary Tract Infection, Adult, [facility] Urinary Tract Infection, Adult A urinary tract infection (UTI) is an infection of any part of the urinary tract. The urinary tract includes: The kidneys. The ureters. The bladder. The urethra. These organs make, store, and get rid of pee (urine) in the body. What are the causes? This infection is caused by germs (bacteria) in your genital area. These germs grow and cause swelling (inflammation) of your urinary tract. What increases the risk? The following factors may make you more likely to develop this condition: Using a small, thin tube (catheter) to drain pee. Not being able to control when you pee or poop (incontinence). Being female. If you are female, these things can increase the risk: ?Using these methods to prevent : ?A medicine that kills sperm (spermicide). ?A device that blocks sperm (diaphragm). ?Having low levels of a female hormone (estrogen). ?Being . You are more likely to develop this condition if: You have genes that add to your risk. You are sexually active. You take antibiotic medicines. You have trouble peeing because of: ?A prostate that is bigger than normal, if you are male. ?A blockage in the part of your body that drains pee from the bladder. ?A kidney stone. ?A nerve condition that affects your bladder. ?Not getting enough to drink. ?Not peeing often enough. You have other conditions, such as: ?Diabetes. ?A weak disease-fighting system (immune system). ?Sickle cell disease. ?Gout. ?Injury of the spine. What are the signs or symptoms? Symptoms of this condition include: Needing to pee right away. Peeing small amounts often. Pain or burning when peeing. Blood in the pee. Pee that smells bad or not like normal. Trouble peeing. Pee that is cloudy. Fluid coming from the vagina, if you are female. Pain in the belly or lower back. Other symptoms include: Vomiting. Not feeling hungry. Feeling mixed up (confused). This may be the first symptom in older adults. Being tired and grouchy (irritable). A fever. Watery poop (diarrhea). How is this treated? Taking antibiotic medicine. Taking other medicines. Drinking enough water. In some cases, you may need to see a specialist. Follow these instructions at home: Medicines Take tlpu-dco-evnsghm and prescription medicines only as told by your doctor. If you were prescribed an antibiotic medicine, take it as told by your doctor. Do not stop taking it even if you start to feel better. General instructions Make sure you: ?Pee until your bladder is empty. ?Do not hold pee for a long time. ?Empty your bladder after sex. ?Wipe from front to back after peeing or pooping if you are a female. Use each tissue one time when you wipe. Drink enough fluid to keep your pee pale yellow. Keep all follow-up visits. Contact a doctor if: You do not get better after 1 2 days. Your symptoms go away and then come back. Get help right away if: You have very bad back pain. You have very bad pain in your lower belly. You have a fever. You have chills. You feeling like you will vomit or you vomit. Summary A urinary tract infection (UTI) is an infection of any part of the urinary tract. This condition is caused by germs in your genital area. There are many risk factors for a UTI. Treatment includes antibiotic medicines. Drink enough fluid to keep your pee pale yellow. This information is not intended to replace advice given to you by your health care provider. Make sure you discuss any questions you have with your health care provider. Document Revised: 12/22/2020 Document Reviewed: 12/27/2020 [employer] Patient Education 2023 [employer] Follow Up Care 11/25/2024 16:04:38 With:MINAL NEWMAN Address: [address] [facility] , [address] [address]- Business (1) When:11/28/2024 16:59:04 Comments:Call Dr for diagnosis based follow up [facility] 11-25-2024 Note ED Patient Education Note Obstetrics and Gynecology Urinary Tract Infection, Adult A urinary tract infection (UTI) is an infection of any part of the urinary tract. The urinary tract includes: ??? The kidneys. ??? The ureters. ??? The bladder. ??? The urethra. These organs make, store, and get rid of pee (urine) in the body. What are the causes? This infection is caused by germs (bacteria) in your genital area. These germs grow and cause swelling (inflammation) of your urinary tract. What increases the risk? The following factors may make you more likely to develop this condition: ??? Using a small, thin tube (catheter) to drain pee. ??? Not being able to control when you pee or poop (incontinence). ??? Being female. If you are female, these things can increase the risk: ? Using these methods to prevent : ? A medicine that kills sperm (spermicide). ? A device that blocks sperm (diaphragm). ? Having low levels of a female hormone (estrogen). ? Being . You are more likely to develop this condition if: ??? You have genes that add to your risk. ??? You are sexually active. ??? You take antibiotic medicines. ??? You have trouble peeing because of: ? A prostate that is bigger than normal, if you are male. ? A blockage in the part of your body that drains pee from the bladder. ? A kidney stone. ? A nerve condition that affects your bladder. ? Not getting enough to drink. ? Not peeing often enough. ??? You have other conditions, such as: ? Diabetes. ? A weak disease-fighting system (immune system). ? Sickle cell disease. ? Gout. ? Injury of the spine. What are the signs or symptoms? Symptoms of this condition include: ??? Needing to pee right away. ??? Peeing small amounts often. ??? Pain or burning when peeing. ??? Blood in the pee. ??? Pee that smells bad or not like normal. ??? Trouble peeing. ??? Pee that is cloudy. ??? Fluid coming from the vagina, if you are female. ??? Pain in the belly or lower back. Other symptoms include: ??? Vomiting. ??? Not feeling hungry. ??? Feeling mixed up (confused). This may be the first symptom in older adults. ??? Being tired and grouchy (irritable). ??? A fever. ??? Watery poop (diarrhea). How is this treated? Taking antibiotic medicine. ??? Taking other medicines. ??? Drinking enough water. In some cases, you may need to see a specialist. Follow these instructions at home: Medicines ??? Take qviz-bti-jeenyet and prescription medicines only as told by your doctor. ??? If you were prescribed an antibiotic medicine, take it as told by your doctor. Do not stop taking it even if you start to feel better. General instructions ??? Make sure you: ? Pee until your bladder is empty. ? Do not hold pee for a long time. ? Empty your bladder after sex. ? Wipe from front to back after peeing or pooping if you are a female. Use each tissue one time when you wipe. ??? Drink enough fluid to keep your pee pale yellow. ??? Keep all follow-up visits. Contact a doctor if: ??? You do not get better after 1?2 days. ??? Your symptoms go away and then come back. Get help right away if: ??? You have very bad back pain. ??? You have very bad pain in your lower belly. ??? You have a fever. ??? You have chills. ??? You feeling like you will vomit or you vomit. Summary ??? A urinary tract infection (UTI) is an infection of any part of the urinary tract. ??? This condition is caused by germs in your genital area. ??? There are many risk factors for a UTI. ??? Treatment includes antibiotic medicines. ??? Drink enough fluid to keep your pee pale yellow. This information is not intended to replace advice given to you by your health care provider. Make sure you discuss any questions you have with your health care provider. Document Revised: 12/22/2020 Document Reviewed: 12/27/2020 [employer] Patient Education ? 2023 [employer] [facility] 11-25-2024 Evaluation + Plan note Diagnostic Tests PendingUrine Culture 11/25/24 [facility] 10-19-2024 History of Present illness Narrative Images from the original note were not included. Blake Guevara MD Obstetrics and Gynecology Patient: Osman Cohen [...] experiences some cramping and a bit of spotting while on the medication. Progesterone 09/23 0.9-low [...] but has been informed about potential fertility treatments when she decides to pursue in the future. [...] to gross testing, coordination, and gait are normal or at baseline unless noted below. Physical Exam [...] mass. There is no free fluid visible within the pelvis. Assessment/Plan ICD-10-CM 1. PCOS (polycystic ovarian [...] Assessment & Plan documented in this encounter [facility] 09-27-2024 History of Present illness Narrative Images from the original note were not included. Blake Guevara MD Obstetrics and Gynecology Patient: Osman Cohen : 2000 (23 y.o.) Yearly Wellness Exam Date: 09/27/2024 Reason for Visit - Chief Complaint Patient presents with Gynecologic Exam Patient present for yearly. Patient denies any issues or complaints. Patient would like to discuss other control options. Last Pap: No history History of Present Illness The patient presents for evaluation of amenorrhea. An absence of menstruation since October 2023 is reported, coinciding with the cessation of her control regimen. Prior to the initiation of control, menstrual cycles were not experienced. A desire to resume the control regimen is expressed, as it is perceived to be the only viable option. Previous use of control was associated with significant mood swings. No facial hair growth is reported, but occasional acne breakouts are acknowledged. Laboratory tests conducted 2021 with low estrogen GYNECOLOGICAL HISTORY: - Last menstrual period: 10/2023 CONTRACEPTION: - Type used: control pills - History: Previous use associated with mood swings Visit Vitals BP 120/76 (BP Location: Left arm) Wt 258 lb LMP 11/16/2023 BMI 44.99 kg/m OB Status Having periods Smoking Status Never BSA 2.29 m History of Present Illness, Associated Treatments and Results - OB History Para Term AB Living 0 0 0 0 0 0 SAB IAB Ectopic Multiple Live Births 0 0 0 0 0 Review of Systems - Constitutional: Negative. HENT: Negative. Eyes: Negative. Respiratory: Negative. Cardiovascular: Negative. Gastrointestinal: Negative. Endocrine: Negative. Genitourinary: Negative. Musculoskeletal: Negative. Skin: Negative. Allergic/Immunologic: Negative. Neurological: Negative. Hematological: Negative. Psychiatric/Behavioral: Negative. Allergies Allergen Reactions Latex Hives Other Reaction(s): Unknown Mosquito (Diagnostic) Other Reaction(s): Unknown Current Outpatient Medications: phentermine (Adipex-P) 37.5 MG tablet, Take 37.5 mg by mouth in the morning. 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 No pertinent surgical history. Family History Problem Relation Name Age of [...] to gross testing, coordination, and gait are normal or at baseline unless noted below. Physical Exam Constitutional: Appearance: Normal appearance. Genitourinary: Right Labia: No rash or lesions. Left Labia: No lesions or rash. No vaginal discharge or erythema. No vaginal prolapse present. No vaginal atrophy present. Right Adnexa: not tender and no mass present. Left Adnexa: not tender and no mass present. No cervical lesion. Uterus is not tender. Uterus is anteverted. Breasts: Right: Normal. No mass or nipple discharge. Left: Normal. No mass or nipple discharge. HENT: Head: Normocephalic and atraumatic. Cardiovascular: Rate and Rhythm: Normal rate and regular rhythm. Pulmonary: Breath sounds: Normal breath sounds. Abdominal: General: There is no distension. Palpations: Abdomen is soft. There is no mass. Tenderness: There is no abdominal tenderness. Musculoskeletal: General: Normal range of motion. Cervical back: Neck supple. Lymphadenopathy: Cervical: No cervical adenopathy. Neurological: Mental Status: She is alert and oriented to person, place, and time. Skin: General: Skin is warm and dry. Psychiatric: Mood and Affect: Mood normal. Assessment/Plan ICD-10-CM 1. Encounter for screening for cervical cancer Z12.4 IGP, APT HPV,RFX 16/18,45 PCOS Diagnostic Profile Progesterone PCOS Diagnostic Profile Progesterone 2. Encounter for gynecological examination without abnormal finding Z01.419 IGP, APT HPV,RFX 16/18,45 3. PCOS (polycystic ovarian syndrome) E28.2 norgestimate-ethinyl estradiol (Sprintec 28) 0.25-35 MG-MCG tablet Cortisol Hemoglobin A1c Insulin, fasting Insulin, fasting Osman was seen today for gynecologic exam. Diagnoses and all orders for this visit: Encounter for screening for cervical cancer (Primary) - IGP, APT HPV,RFX 16/18,45 - PCOS Diagnostic Profile; Future - Progesterone; Future - PCOS Diagnostic Profile - Progesterone Encounter for gynecological examination without abnormal finding - IGP, APT HPV,RFX 16/18,45 PCOS (polycystic ovarian syndrome) - norgestimate-ethinyl estradiol (Sprintec 28) 0.25-35 MG-MCG tablet; Take 1 tablet by mouth Daily - Cortisol - Hemoglobin A1c - Insulin, fasting; Future - Insulin, fasting Other orders - Cortisol - Cancel: Hemoglobin A1c - Specimen Status Report Assessment & Plan Exam performed 1. Amenorrhea Laboratory tests and an ultrasound will be conducted to confirm a potential diagnosis of polycystic ovarian disease. A hormone regimen/Sprintec is advised to ensure regular menstrual cycles, thereby reducing the risk of future endometrial cancer. The importance of having a period every 3 months to protect the uterine lining and breasts from chronic estrogen stimulation was discussed. - Order PCOS panel and progesterone level - Schedule ultrasound to evaluate ovaries - Start control pill; monitor for adverse effects and consider alternatives if necessary documented in this encounter [facility] 10-29-2023 Evaluation + Plan note Extrac janet from: Title:ED Note Author:Troy Treadwell DO Date :10/29/23 Chest pain (R07.9: Chest sam n, unspecified) Orders: ketorolac, 30 mg = 1 mL, Injection, IntraMuscular, Once, Stop date 10/29/23 3:28:00 EDT, STAT, Start date 10/29/23 3:28:00 EDT, 10/29/23 3:28:00 EDT Basic Metabolic Panel CBC w/ Auto Diff ECG 12 Lead Adult ED Cardiac Monitoring eGFR Oxygen Saturation Oxygen Therapy PT & PTT Saline Lock Insert Troponin 0 Hr. Troponin 1 Hr. XR Chest Single View [facility]05-31-2024 Hospital Discharge instructions Patient Education 10/29/2023 04:33:03 Nonspecific Chest Pain, Adult Nonspecific Chest Pain, Adult Chest pain is an uncomfortable, tight, or painful feeling in the chest. The pain can feel like a crushing, aching, or squeezing pressure. A person can feel a burning or tingling sensation. Chest paincan also be felt in your back, neck, jaw, shoulder, or arm. This pain can be worse when you move, sneeze, or take a deep breath. Chest pain can be caused by a condition that is life-threatening. This must be treated right away. It can also be caused by something that is not life- threatening. If you have chest pain, it can be hard to know the difference, so it is important to get help right away to make sure that you do not have a serious condition. Some life-threatening causes of chest pain include: Heart attack. A tear in the body's main blood vessel (aortic dissection). Inflammation around your heart (pericarditis). A problem in the lungs, such as a blood clot (pulmonary embolism) or a collapsed lung (pneumothorax). Some non life-threatening causes of chest pain include: Heartburn. Anxiety or stress. Damage to the bones, muscles, and cartilage that make up your chest wall. Pneumonia or bronchitis. Shingles infection (varicella-zoster virus). Your chest pain may come and go. It may also be constant. Your health care provider will do tests and other studies to find the cause of your pain. Treatment will depend on the cause of your chest pain. Follow these instructions at home: Medicines Take zqoz-vvn-qvqcghu and prescription medicines only as told by your health care provider. If you were prescribed an antibiotic medicine, take it as told by your health care provider. Do notstop taking the antibiotic even if you start to feel better. Activity Avoid any activities that cause chest pain. Do not lift anything that is heavier than 10 lb (4.5 kg), or the limit that you are told, until your health care provider says that it is safe. Rest as directed by your health care provider. Return to your normal activities only as told by your health care provider. Ask your health care provider what activities are safe for you. Lifestyle Do not use any products that contain nicotine or tobacco, such as cigarettes, e- cigarettes, and chewing tobacco. If you need help quitting, ask your health care provider. Do not drink alcohol. Make healthy lifestyle changes as recommended. These may include: ?Getting regular exercise. Ask your health care provider to suggest some exercises that are safe for you. ?Eating a heart-healthy diet. This includes plenty of fresh fruits and vegetables, whole grains, low-fat (lean) protein, and low-fat dairy products. A dietitian can help you find healthy eating options. ?Maintaining a healthy weight. ?Managing any other health conditions you may have, such as high blood pressure (hypertension) or diabetes. ?Reducing stress, such as with yoga or relaxation techniques. General instructions Pay attention to any changes in your symptoms. It is up to you to get the results of any tests that were done. Ask your health care provider, or the department that is doing the tests, when your results will be ready. Keep all follow-up visits as told by your health care provider. This is important. You may be asked to go for further testing if your chest pain does not go away. Contact a health care provider if: Your chest pain does not go away. You feel depressed. You have a fever. You notice changes in your symptoms or develop new symptoms. Get help right away if: Your chest pain gets worse. You have a cough that gets worse, or you cough up blood. You have severe pain in your abdomen. You faint. You have sudden, unexplained chest discomfort. You have sudden, unexplained discomfort in your arms, back, neck, or jaw. You have shortness of breath at any time. You suddenly start to sweat, or your skin gets clammy. You feel nausea or you vomit. You suddenly feel lightheaded or dizzy. You have severe weakness, or unexplained weakness or fatigue. Your heart begins to beat quickly, or it feels like it is skipping beats. These symptoms may represent a serious problem that is an emergency. Do not wait to see if the symptoms will go away. Get medical help right away. Call your local emergency services (911 in the [place] Do not drive yourself to the hospital. Summary Chest pain can be caused by a condition that is serious and requires urgent treatment. It may also be caused by something that is not life-threatening. Your health care provider may do lab tests and other studies to find the cause of your pain. Follow your health care provider's instructions on taking medicines, making lifestyle changes, and getting emergency treatment if symptoms become worse. Keep all follow-up visits as told by your health care provider. This includes visits for any further testing if your chest pain does not go away. This information is not intended to replace advice given to you by your health care provider. Make sure you discuss any questions you have with your health care provider. Document Revised: 07/31/2021 Document Reviewed: 07/31/2021 [employer] Patient Education 2022 [employer] Follow Up Care 10/29/2023 02:25:56 With:MINAL NEWMAN Address: [address] [facility], [address] [address] [facility] (1) When:Within 3 Day(s) [facility]05-08-2024 Hospital Discharge instructions Patient Education 10/05/2023 22:21:16 Migraine Headache, Kkki-ad-Dkea Migraine Headache A migraine headache is a very strong throbbing pain on one side or both sides of your head. This type of headache can also cause other symptoms. It can last from 4 hours to 3 days. Talk with your doctor about what things may bring on (trigger) this condition. What are the causes? The exact cause of this condition is not known. This condition may be triggered or caused by: Drinking alcohol. Smoking. Taking medicines, such as: ?Medicine used to treat chest pain (nitroglycerin). ? control pills. ?Estrogen. ?Some blood pressure medicines. Eating or drinking certain products. Doing physical activity. Other things that may trigger a migraine headache include: Having a menstrual period. . Hunger. Stress. Not getting enough sleep or getting too much sleep. Weather changes. Tiredness (fatigue). What increases the risk? Being [age] years old. Being female. Having a family history of migraine headaches. Being . Having depression or anxiety. Being very overweight. What are the signs or symptoms? A throbbing pain. This pain may: ?Happen in any area of the head, such as on one side or both sides. ?Make it hard to do daily activities. ?Get worse with physical activity. ?Get worse around bright lights or loud noises. Other symptoms may include: ?Feeling sick to your stomach (nauseous). ?Vomiting. ?Dizziness. ?Being sensitive to bright lights, loud noises, or smells. Before you get a migraine headache, you may get warning signs (an aura). An aura may include: ?Seeing flashing lights or having blind spots. ?Seeing bright spots, halos, or zigzag lines. ?Having tunnel vision or blurred vision. ?Having numbness or a tingling feeling. ?Having trouble talking. ?Having weak muscles. Some people have symptoms after a migraine headache (postdromal phase), such as: ?Tiredness. ?Trouble thinking (concentrating). How is this treated? Taking medicines that: ?Relieve pain. ?Relieve the feeling of being sick to your stomach. ?Prevent migraine headaches. Treatment may also include: ?Having acupuncture. ?Avoiding foods that bring on migraine headaches. ?Learning ways to control your body functions (biofeedback). ?Therapy to help you know and deal with negative thoughts (cognitive behavioral therapy). Follow these instructions at home: Medicines Take ypsz-kpf-eycqhfp and prescription medicines only as told by your doctor. Ask your doctor if the medicine prescribed to you: ?Requires you to avoid driving or using heavy machinery. ?Can cause trouble pooping (constipation). You may need to take these steps to prevent or treat trouble pooping: ?Drink enough fluid to keep your pee (urine) pale yellow. ?Take utyz-yht-bmmkvhz or prescription medicines. ?Eat foods that are high in fiber. These include beans, whole grains, and fresh fruits and vegetables. ?Limit foods that are high in fat and sugar. These include fried or sweet foods. Lifestyle Do not drink alcohol. Do not use any products that contain nicotine or tobacco, such as cigarettes, e- cigarettes, and chewing tobacco. If you need help quitting, ask your doctor. Get at least 8 hours of sleep every night. Limit and deal with stress. General instructions Keep a journal to find out what may bring on your migraine headaches. For example, write down: ?What you eat and drink. ?How much sleep you get. ?Any change in what you eat or drink. ?Any change in your medicines. If you have a migraine headache: ?Avoid things that make your symptoms worse, such as bright lights. ?It may help to lie down in a dark, quiet room. ?Do not drive or use heavy machinery. ?Ask your doctor what activities are safe for you. Keep all follow-up visits as told by your doctor. This is important. Contact a doctor if: You get a migraine headache that is different or worse than others you have had. You have more than 15 headache days in one month. Get help right away if: Your migraine headache gets very bad. Your migraine headache lasts longer than 72 hours. You have a fever. You have a stiff neck. You have trouble seeing. Your muscles feel weak or like you cannot control them. You start to lose your balance a lot. You start to have trouble walking. You pass out (faint). You have a seizure. Summary A migraine headache is a very strong throbbing pain on one side or both sides of your head. These headaches can also cause other symptoms. This condition may be treated with medicines and changes to your lifestyle. Keep a journal to find out what may bring on your migraine headaches. Contact a doctor if you get a migraine headache that is different or worse than others you have had. Contact your doctor if you have more than 15 headache days in a month. This information is not intended to replace advice given to you by your health care provider. Make sure you discuss any questions you have with your health care provider. Document Revised: 09/08/2019 Document Reviewed: 06/29/2019 [employer] Patient Education 2022 [employer] Follow Up Care 10/05/2023 20:35:15 With:MINAL NEWMAN Address: [address] , [facility] [address] [place] [address]- Business (1) When:10/08/2023 Comments:Continue taking your medications as prescribed. Please follow-up with your primary care doctor next2 to 3 days for further evaluation and management. Please return to the ED for any new or worseningsymptoms. [facility]05-07-2024 Evaluation + Plan noteExtracted from: Title:ED Note Author:Deana Mohan DO Aditi Date :10/05/23 Headache, migraine (G43.909: Migraine, unspecified, not intractable, without status migrainosus) Orders: dexamethasone, 10 mg = 2.5 mL, Injection, IV Push, Once, Stop date 10/05/23 20:53:00 EDT, STAT, Start date 10/05/23 20:53:00 EDT, 10/05/23 20:53:00 EDT diphenhydrAMINE, 25 mg = 0.5 mL, Injection, IV Push, Once, Stop date 10/05/23 20:53:00 EDT, STAT, Start date 10/05/23 20:53:00 EDT, 10/05/23 20:53:00 EDT ketorolac, 30 mg = 1 mL, Injection, IV Push, Once, Stop date 10/05/23 20:53:00 EDT, STAT, Start date 10/05/23 20:53:00 EDT, 10/05/23 20:53:00 EDT metoclopramide, 10 mg = 2 mL, Injection, IV Push, Once, Stop date 10/05/23 20:53:00 EDT, STAT, Start date 10/05/23 20:53:00 EDT, 10/05/23 20:53:00 EDT Sodium Chloride 0.9% intravenous solution 1,000 mL, 1,000 mL, IV, 983.61 mL/hr, for 30 day(s), Stop date 11/04/23 20:52:00 EDT, STAT, Start date 10/05/23 20:53:00 EDT, 61 minute(s), Total volume (mL): 1,000, 107 kg, 2.18, m2 [facility]03-13-2024 Hospital Discharge instructions Patient Education 08/11/2023 00:20:20 Upper Respiratory Infection, Adult Upper Respiratory Infection, Adult An upper respiratory infection (URI) is a common viral infection of the nose, throat, and upper airpassages that lead to the lungs. The most common type of URI is the common cold. URIs usually get better on their own, without medical treatment. What are the causes? A URI is caused by a virus. You may catch a virus by: Breathing in droplets from an infected person's cough or sneeze. Touching something that has been exposed to the virus (is contaminated) and then touching your mouth, nose, or eyes. What increases the risk? You are more likely to get a URI if: You are very young or very old. You have close contact with others, such as at work, school, or a health care facility. You smoke. You have long-term (chronic) heart or lung disease. You have a weakened disease-fighting system (immune system). You have nasal allergies or asthma. You are experiencing a lot of stress. You have poor nutrition. What are the signs or symptoms? A URI usually involves some of the following symptoms: Runny or stuffy (congested) nose. Cough. Sneezing. Sore throat. Headache. Fatigue. Fever. Loss of appetite. Pain in your forehead, behind your eyes, and over your cheekbones (sinus pain). Muscle aches. Redness or irritation of the eyes. Pressure in the ears or face. How is this diagnosed? This condition may be diagnosed based on your medical history and symptoms, and a physical exam. Your health care provider may use a swab to take a mucus sample from your nose (nasal swab). This sample can be tested to determine what virus is causing the illness. How is this treated? URIs usually get better on their own within 7 10 days. Medicines cannot cure URIs, but your health care provider may recommend certain medicines to help relieve symptoms, such as: Zkvl-vmf-iniqgfp cold medicines. Cough suppressants. Coughing is a type of defense against infection that helps to clear the respiratory system, so take these medicines only as recommended by your health care provider. Fever-reducing medicines. Follow these instructions at home: Activity Rest as needed. If you have a fever, stay home from work or school until your fever is gone or until your health care provider says your URI cannot spread to other people (is no longer contagious). Your health care provider may have you wear a face mask to prevent your infection from spreading. Relieving symptoms Gargle with a mixture of salt and water 3 4 times a day or as needed. To make salt water, completely dissolve 1 tsp (3 6 g) of salt in 1 cup (237 mL) of warm water. Use a cool-mist humidifier to add moisture to the air. This can help you breathe more easily. Eating and drinking Drink enough fluid to keep your urine pale yellow. Eat soups and other clear broths. General instructions Take mhcg-owr-knpgujh and prescription medicines only as told by your health care provider. These include cold medicines, fever reducers, and cough suppressants. Do not use any products that contain nicotine or tobacco. These products include cigarettes, chewing tobacco, and vaping devices, such as e-cigarettes. If you need help quitting, ask your health careprovider. Stay away from secondhand smoke. Stay up to date on all immunizations, including the yearly (annual) flu vaccine. Keep all follow-up visits. This is important. How to prevent the spread of infection to others URIs can be contagious. To prevent the infection from spreading: Wash your hands with soap and water for at least 20 seconds. If soap and water are not available, use hand jewelry setter. Avoid touching your mouth, face, eyes, or nose. Cough or sneeze into a tissue or your sleeve or elbow instead of into your hand or into the air. Contact a health care provider if: You are getting worse instead of better. You have a fever or chills. Your mucus is brown or red. You have yellow or brown discharge coming from your nose. You have pain in your face, especially when you bend forward. You have swollen neck glands. You have pain while swallowing. You have white areas in the back of your throat. Get help right away if: You have shortness of breath that gets worse. You have severe or persistent: ?Headache. ?Ear pain. ?Sinus pain. ?Chest pain. You have chronic lung disease along with any of the following: ?Making high-pitched whistling sounds when you breathe, most often when you breathe out (wheezing). ?Prolonged cough (more than 14 days). ?Coughing up blood. ?A change in your usual mucus. You have a stiff neck. You have changes in your: ?Vision. ?Hearing. ?Thinking. ?Mood. These symptoms may be an emergency. Get help right away. Call 911. Do not wait to see if the symptoms will go away. Do not drive yourself to the hospital. Summary An upper respiratory infection (URI) is a common infection of the nose, throat, and upper air passages that lead to the lungs. A URI is caused by a virus. URIs usually get better on their own within 7 10 days. Medicines cannot cure URIs, but your health care provider may recommend certain medicines to help relieve symptoms. This information is not intended to replace advice given to you by your health care provider. Make sure you discuss any questions you have with your health care provider. Document Revised: 12/17/2021 Document Reviewed: 12/17/2021 [employer] Patient Education 2022 [employer] Follow Up Care 08/10/2023 22:47:52 With:MINAL NEWMAN Address: [address] [place] [address], [address] [address] Business (1) When:Within 3 Day(s) [facility]03-12-2024 Evaluation + Plan noteExtracted from: Title:ED Note Author:Troy Treadwell DO Date :08/10/23 Acute URI (J06.9: Acute uppe r respiratory infection, unspecified) Orders: albuterol, 180 mcg, 2 puff(s), Aerosol, Inhalation, q6hr PRN Shortness of breath or wheezing, STAT, Start date 08/10/23 23:35:00 EDT, teach and treat only predniSONE, 40 mg = 2 tab(s), Oral, Daily, X 4 day(s), # 8 tab(s), Refills(s) 0, Pharmacy: [facility], 165, cm, 08/10/23 23:00:00 EDT, Height/Length Dosing, 103.6, kg, 08/10/23 23:00:00 EDT, Weight Dosing predniSONE, 40 mg = 2 tab(s), Tab, Oral, Once, Stop date 08/10/23 23:35:00 EDT, STAT, Start date 08/10/23 23:35:00 EDT, 08/10/23 23:35:00 EDT ECG 12 Lead Adult Influenza A&B Ag Rapid COVID Antigen ([facility] [place]R Chest Single View Addendum by Satish Thao DO on August 11, 2023 08:47:32 EDT I did review the abnormal chest x-ray with Dr. Shipman. Patient had no abdominal complaints. Has normal documented abdominal exam. Likely some overlying bowel gas. [facility]02-11-2024 History of Present illness Narrative* Yahir Lombardo Ines, - 07/11/2023 11:55 AM EST HPI: Historian of HPI: patient Osman Cohen is a 22 y.o. female who presents today to the Urgent Care with the following complaints and denials which have been present for 2.5 day(s) C/O Denies Symptom Comments [x] [] Runny Nose [] [x] Difficulty Swallowing [] [x] Sore Throat [x] [] Cough [] [x] Ear Pain [] [x] Fever [] [x] Chills [x] [] Nasal Congestion [] [x] Myalgia [x] [] Sinus Pain [x] [] Sinus Pressure Additional Comments: pt has taken sinus relief, benadryl OTC medication without relief ROS: A complete system ROS was performed and negative aside from the pertinent positives noted in the HPI and PE. IH Testing: The following tests were not performed SEE TEST(S) ORDERS FOR RESULTS EXAMINATION: General: No acute distress. Awake and alert. Eyes: Normal conjunctiva, anicteric. No discharge. Neck: Neck is supple. No cervical lymphadenopathy. Ears: R TM slightly erythematous otherwise b/l TM and canals clear and grossly wnl Oral: normal moist mucosa, no ulcers/lesions Throat: erythematous, mildly swollen b/l tonsils Nose: erythematous mucosa b/l, with no drainage CV: RRR without murmurs, rubs or gallops Respiratory: Respirations are non-labored. Lungs are clear to auscultation. Skin: Warm. No rashes or ulcers. MSK: Moving all extremities appropriately. Neuro: Nonfocal 1. Viral URI Advised pt of dx and tx plan. Advised of likely self limited course of dz. Recommend supportive care including pushing po fluids, otc tylenol, ibuprofen, nasal saline and decongestants along with humidifiers. Advised to return to care either PCP, UC or ER if s/s worsen, persist or develops sob, chest pain, persistent fevers, chills, inability to tolerate PO intake. F/u with PCP within next 7-10 days. documented in [facility] encounterH[facility] [id number] Hospital Discharge instructions Patient Education 06/23/2023 01:40:23 Urinary Tract Infection, Adult Urinary Tract Infection, Adult A urinary tract infection (UTI) is an infection of any part of the urinary tract. The urinary tractincludes the kidneys, ureters, bladder, and urethra. These organs make, store, and get rid of urinein the body. An upper UTI affects the ureters and kidneys. A lower UTI affects the bladder and urethra. What are the causes? Most urinary tract infections are caused by bacteria in your genital area around your urethra, where urine leaves your body. These bacteria grow and cause inflammation of your urinary tract. What increases the risk? You are more likely to develop this condition if: You have a urinary catheter that stays in place. You are not able to control when you urinate or have a bowel movement (incontinence). You are female and you: ?Use a spermicide or diaphragm for control. ?Have low estrogen levels. ?Are . You have certain genes that increase your risk. You are sexually active. You take antibiotic medicines. You have a condition that causes your flow of urine to slow down, such as: ?An enlarged prostate, if you are male. ?Blockage in your urethra. ?A kidney stone. ?A nerve condition that affects your bladder control (neurogenic bladder). ?Not getting enough to drink, or not urinating often. You have certain medical conditions, such as: ?Diabetes. ?A weak disease-fighting system (immunesystem). ?Sickle cell disease. ?Gout. ?Spinal cord injury. What are the signs or symptoms? Symptoms of this condition include: Needing to urinate right away (urgency). Frequent urination. This may include small amounts of urine each time you urinate. Pain or burning with urination. Blood in the urine. Urine that smells bad or unusual. Trouble urinating. Cloudy urine. Vaginal discharge, if you are female. Pain in the abdomen or the lower back. You may also have: Vomiting or a decreased appetite. Confusion. Irritability or tiredness. A fever or chills. Diarrhea. The first symptom in older adults may be confusion. In some cases, they may not have any symptoms until the infection has worsened. How is this diagnosed? This condition is diagnosed based on your medical history and a physical exam. You may also have other tests, including: Urine tests. Blood tests. Tests for STIs (sexually transmitted infections). If you have had more than one UTI, a cystoscopy or imaging studies may be done to determine the cause of the infections. How is this treated? Treatment for this condition includes: Antibiotic medicine. Hefd-rvv-odgdcsf medicines to treat discomfort. Drinking enough water to stay hydrated. If you have frequent infections or have other conditions such as a kidney stone, you may need to see a health care provider who specializes in the urinary tract (urologist). In rare cases, urinary tract infections can cause sepsis. Sepsis is a life- threatening condition that occurs when the body responds to an infection. Sepsis is treated in the hospital with IV antibiotics, fluids, and other medicines. Follow these instructions at home: Medicines Take xgnu-iqx-geoxhrd and prescription medicines only as told by your health care provider. If you were prescribed an antibiotic medicine, take it as told by your health care provider. Do notstop using the antibiotic even if you start to feel better. General instructions Make sure you: ?Empty your bladder often and completely. Do not hold urine for long periods of time. ?Empty your bladder after sex. ?Wipe from front to back after urinating or having a bowel movement if you are female. Use each tissue only one time when you wipe. Drink enough fluid to keep your urine pale yellow. Keep all follow-up visits. This is important. Contact a health care provider if: Your symptoms do not get better after 1 2 days. Your symptoms go away and then return. Get help right away if: You have severe pain in your back or your lower abdomen. You have a fever or chills. You have nausea or vomiting. Summary A urinary tract infection (UTI) is an infection of any part of the urinary tract, which includes the kidneys, ureters, bladder, and urethra. Most urinary tract infections are caused by bacteria in your genital area. Treatment for this condition often includes antibiotic medicines. If you were prescribed an antibiotic medicine, take it as told by your health care provider. Do notstop using the antibiotic even if you start to feel better. Keep all follow-up visits. This is important. This information is not intended to replace advice given to you by your health care provider. Make sure you discuss any questions you have with your health care provider. Document Revised: 12/27/2020 Document Reviewed: 12/27/2020 [employer] Patient Education 2022 [employer] Follow Up Care 06/22/2023 20:45:38 With:MINAL NEWMAN Address: [address] , [address] [address]- Business (1) When:Within 3 Day(s) [facility]01-23-2024 Evaluation + Plan noteExtracted from: Title:ED Note Author:Troy Treadwell DO Date :06/22/23 Acute UTI (N39.0: Urinary tr act infection, site not specified) AP (abdominal pain) (R10.9: Unspecified abdominal pain) Orders: cefpodoxime, 200 mg = 1 tab(s), Oral, q12hr, X 10 day(s), # 20 tab(s), Refills(s) 0, Pharmacy: [id number], 164, cm, 06/22/23 20:52:00 EST, Height/Length Dosing, 95.7, kg, 06/22/23 20:52:00 EST, Weight Dosing ceftriaxone + Sodium Chloride 0.9% intravenous solution 50 mL, 1,000 mg = 1 EA, IV Piggyback, Once, Stop date 06/23/23 0:26:00 EST, STAT, Start date 06/23/23 0:26:00 EST, 100 mL/hr, Infuse over 30 minute(s), 06/23/23 0:26:00 EST ketorolac, 15 mg = 1 mL, Injection, IV Push, Once, Stop date 06/22/23 21:31:00 EST, STAT, Start date 06/22/23 21:31:00 EST, 06/22/23 21:31:00 EST naproxen, 500 mg = 1 tab(s), Oral, BID, X 10 day(s), # 20 tab(s), Refills(s) 0, Pharmacy: [id number], 164, cm, 06/22/23 20:52:00 EST, Height/Length Dosing, 95.7, kg, 06/22/23 20:52:00 EST, Weight Dosing Sodium Chloride 0.9% intravenous solution, 1,000 mL, Soln-IV, IV, Once, Stop date 06/22/23 21:31:00 EST, STAT, Start date 06/22/23 21:31:00 EST, Infuse over 61, minute(s) Basic Metabolic Panel CBC w/ Auto Diff CT Abdomen/Pelvis w/ Contrast eGFR Extra Blue Tube Extra SST Tube Hepatic Function Panel Lipase Level Saline Lock Insert U Beta Hcg Qual UA With Cult Reflex Urine Culture [facility]01-13-2024 Evaluation note* Encounter Date Diagnosis Assessment Notes Treatment Notes Treatment Clinical Notes May, Sore throat (ICD-10 - J02.9) May, Acute non-recurrent pansinusitis (ICD-10 - J01.40) Advised that strep test was negative today. Will tx tody for bacterial sinusitis based on physical exam and duration of symptoms. Take antibiotic as prescribed, complete entire course of therapy even if symptoms resolve. Medrol as directed with food, discussed SE. Capmist as directed for cough/congestion. Supportive care as directed, push fluids and rest, Tylenol/Motrin as directed for aches/fever, warm moist compress over sinuses several times a day, cool mist humidifier, nasal saline spray as directed. Symptoms should improve in the next 3 days, if symptoms persist follow up with PCP. Immediate eval for warning s/sx as discussed. Patient verbalizes understanding and is agreeable to treatment plan. [employer] Other 11-05-2023 Hospital Discharge instructions Patient Education 04/04/2023 13:56:12 How to Use a Cast Shoe How to Use a Cast Shoe A cast shoe is a stiff shoe that is worn over a cast. You may need to wear a cast shoe after a footor leg injury. It helps you walk, and it keeps the cast clean and dry. Your health care provider may give you a cast shoe after you are allowed to use your injured foot or leg to support (bear) your weight. Cast shoes are made of various materials. They usually have a flat, firm, cushioned bottom. What are the risks? A cast shoe that is not worn properly can lead to cast damage. To protect the cast: Properly position and adjust the shoe to support the cast. Bear weight on the cast shoe only as told by your health care provider. How to use a cast shoe Wear the cast shoe as told by your health care provider. Follow the embossing machine operator helper's instructions for use. Tighten and properly adjust the cast shoe so it is secure on your foot. Do not wear the cast shoe while you are resting at home or sleeping. Keep the cast shoe clean and dry. Do not wear any other kind of footwear until your health care provider says that you can. How to care for your cast shoe Use mild soap and water to clean your cast shoe. Make sure your cast shoe is completely clean and dry before you put it over your cast. Contact a health care provider if: Your cast gets wet or damaged. You have foot pain when you wear the cast shoe. You have foot pain when you move. Your foot pain is getting worse or the pain is not getting better over time. Summary A cast shoe is a rigid shoe that you wear over a cast. A cast shoe helps you walk, and it keeps your cast clean and dry. A cast shoe that is not worn properly can lead to cast damage. This information is not intended to replace advice given to you by your health care provider. Make sure you discuss any questions you have with your health care provider. Document Revised: 03/10/2021 Document Reviewed: 03/10/2021 [employer] Patient Education 2022 [employer] 04/04/2023 13:56:12 Foot Contusion Foot Contusion A foot contusion is a deep bruise to the foot. Contusions are the result of an injury to tissues and muscle fibers under the skin. The injury causes bleeding under the skin. The skin over the contusion may turn blue, purple, or yellow. Minor injuries will cause a painless contusion, but more severecontusions may stay painful and swollen for a few weeks. What are the causes? This condition is usually caused by a hard hit or direct force to your foot, such as having a heavyobject fall on your foot. What are the signs or symptoms? Symptoms of this condition include: Swelling of the foot. Pain and tenderness of the foot. Discoloration of the foot. The area may have redness and then turn blue, purple, or yellow. How is this diagnosed? This condition may be diagnosed based on: Your medical history. A physical exam. In some cases, imaging tests may be done to check for other injuries. These may include: An X-ray to check for broken bones (fractures). CT scan or MRI to check for torn or injured ligaments. How is this treated? In general, the best treatment for a foot contusion is rest, ice, pressure (compression), and elevation. This is often called RICE therapy. An elastic wrap may be recommended to support your foot. Mqhq-eoa-iduutpi anti-inflammatory medicines may also be recommended for pain control. If your swelling or pain is severe, you may be given crutches. Follow these instructions at home: RICE therapy Rest the injured area. Try to avoid standing or walking while your foot is painful. If directed, put ice on the injured area. ?Put ice in a plastic bag. ?Place a towel between your skin and the bag. ?Leave the ice on for 20 minutes, 2 3 times a day. If directed, apply light compression to the injured area using an elastic wrap. Make sure the wrap is not too tight. Remove and reapply the wrap as told by your health care provider. If your toes become numb, cold, or blue, take the wrap off and reapply it more loosely. Raise (elevate) the injured area above the level of your heart while you are sitting or lying down. General instructions Take vsgm-hes-wzpboyg and prescription medicines only as told by your health care provider. Use crutches as told by your health care provider, if this applies. Do not use the injured foot to support your body weight until your health care provider says that you can. Do not use any products that contain nicotine or tobacco, such as cigarettes, e- cigarettes, and chewing tobacco. These can delay healing. If you need help quitting, ask your health care provider. Keep all follow-up visits as told by your health care provider. This is important. Contact a health care provider if: Your symptoms do not improve after several days of treatment. You have redness, swelling, or pain in your foot or toes. You have difficulty moving the injured area. Your swelling or pain is not relieved with medicines. Get help right away if: You have severe pain. Your foot or toes become numb. Your foot or toes become pale or cold. You cannot move your foot or ankle. Your foot is warm to the touch. Summary A foot contusion is a deep bruise to the foot. This condition is usually caused by a hard hit or direct force to your foot. Symptoms include swelling, pain, and discoloration in the injured area. In general, the best treatment for a foot contusion is rest, ice, pressure (compression), and elevation. This information is not intended to replace advice given to you by your health care provider. Make sure you discuss any questions you have with your health care provider. Document Revised: 08/20/2021 Document Reviewed: 08/20/2021 [employer] Patient Education 2022 [employer] Follow Up Care 04/04/2023 12:13:18 With:Nicholas Huerta Address: [address] [place] [phone] Business (1) When:04/07/2023 13:40:03 Comments:Return to the emergency room if your pain gets worse or any new symptoms [facility]11-05-2023 Evaluation + Plan noteExtracted from: Title:ED Note Author:Tim Knight M.D. te:04/04/23 1. Contusion of right foot ( S90.31XA: Contusion of right foot, initial encounter) Orders: ibuprofen, 600 mg = 1 tab(s), Tab, Oral, Once, Stop date 04/04/23 12:42:00 EST, STAT, Start date 04/04/23 12:42:00 EST, 04/04/23 12:42:00 EST Post-op Shoe XR Foot 3+ Views Right [facility]09-01-2023 Hospital Discharge instructions Patient Education 01/29/2023 15:02:04 General Headache Without Cause General Headache Without Cause A headache is pain or discomfort felt around the head or neck area. There are many causes and typesof headaches. A few common types include: Tension headaches. Migraine headaches. Cluster headaches. Chronic daily headaches. Sometimes, the specific cause of a headache may not be found. Follow these instructions at home: Watch your condition for any changes. Let your health care provider know about them. Take these steps to help with your condition: Managing pain Take mxhc-njs-wmxinvz and prescription medicines only as told by your health care provider. Treatment may include medicines for pain that are taken by mouth or applied to the skin. Lie down in a dark, quiet room when you have a headache. Keep lights dim if bright lights bother you or make your headaches worse. If directed, put ice on your head and neck area: ?Put ice in a plastic bag. ?Place a towel between your skin and the bag. ?Leave the ice on for 20 minutes, 2 3 times per day. ?Remove the ice if your skin turns bright red. This is very important. If you cannot feel pain, heat, or cold, you have a greater risk of damage to the area. If directed, apply heat to the affected area. Use the heat source that your health care provider recommends, such as a moist heat pack or a heating pad. ?Place a towel between your skin and the heat source. ?Leave the heat on for 20 30 minutes. ?Remove the heat if your skin turns bright red. This is especially important if you are unable to feel pain, heat, or cold. You have a greater risk of getting burned. Eating and drinking Eat meals on a regular schedule. If you drink alcohol: ?Limit how much you have to: ?0 1 drink a day for women who are not . ? 0 2 drinks a day for men. ?Know how much alcohol is in a drink. In the [place] one drink equals one 12 oz bottle of beer (355 mL), one 5 oz glass of wine (148 mL), or one 1 oz glass of hard liquor (44 mL). Stop drinking caffeine, or decrease the amount of caffeine you drink. Drink enough fluid to keep your urine pale yellow. General instructions Keep a headache journal to help find out what may trigger your headaches. For example, write down: ?What you eat and drink. ?How much sleep you get. ?Any change to your diet or medicines. Try massage or other relaxation techniques. Limit stress. Sit up straight, and do not tense your muscles. Do not use any products that contain nicotine or tobacco. These products include cigarettes, chewing tobacco, and vaping devices, such as e-cigarettes. If you need help quitting, ask your health careprovider. Exercise regularly as told by your health care provider. Sleep on a regular schedule. Get 7 9 hours of sleep each night, or the amount recommended by your health care provider. Keep all follow-up visits. This is important. Contact a health care provider if: Medicine does not help your symptoms. You have a headache that is different from your usual headache. You have nausea or you vomit. You have a fever. Get help right away if: Your headache: ?Becomes severe quickly. ?Gets worse after moderate to intense physical activity. You have any of these symptoms: ?Repeated vomiting. ?Pain or stiffness in your neck. ?Changes to your vision. ?Pain in an eye or ear. ?Problems with speech. ?Muscular weakness or loss of muscle control. ?Loss of balance or coordination. You feel faint or pass out. You have confusion. You have a seizure. These symptoms may represent a serious problem that is an emergency. Do not wait to see if the symptoms will go away. Get medical help right away. Call your local emergency services (911 in the [place] Do not drive yourself to the hospital. Summary A headache is pain or discomfort felt around the head or neck area. There are many causes and types of headaches. In some cases, the cause may not be found. Keep a headache journal to help find out what may trigger your headaches. Watch your condition for any changes. Let your health care provider know about them. Contact a health care provider if you have a headache that is different from the usual headache, orif your symptoms are not helped by medicine. Get help right away if your headache becomes severe, you vomit, you have a loss of vision, you loseyour balance, or you have a seizure. This information is not intended to replace advice given to you by your health care provider. Make sure you discuss any questions you have with your health care provider. Document Revised: 10/15/2021 Document Reviewed: 10/15/2021 [employer] Patient Education 2022 [employer] Follow Up Care 01/29/2023 12:42:21 With:Jarett Post Address: [address] [place] [address]- When:02/01/2023 14:54:55 Comments:Return to the emergency room if your headache recurs or any new symptoms. [facility]09-01-2023 Evaluation + Plan noteExtracted from: Title:ED Note Author:Hajdari MTim Peralta te:01/29/23 1. Headache (R51.9: Headache , unspecified) Orders: ketorolac, 30 mg = 1 mL, Injection, IV Push, Once, Stop date 01/29/23 13:10:00 EDT, STAT, Start date 01/29/23 13:10:00 EDT, 01/29/23 13:10:00 EDT methylPREDNISolone, 125 mg = 2 mL, Injection, IV Push, Once, Stop date 01/29/23 13:10:00 EDT, STAT, Start date 01/29/23 13:10:00 EDT, 01/29/23 13:10:00 EDT metoclopramide, 10 mg = 2 mL, Injection, IV Push, Once, Stop date 01/29/23 13:10:00 EDT, STAT, Start date 01/29/23 13:10:00 EDT, 01/29/23 13:10:00 EDT Sodium Chloride 0.9% intravenous solution, 1,000 mL, Soln-IV, IV, Once, Stop date 01/29/23 13:10:00 EDT, STAT, Start date 01/29/23 13:10:00 EDT, Infuse over 61, minute(s) CT Head or Brain w/o Contrast [facility]08-19-2023 Hospital Discharge instructions Patient Education 01/16/2023 16:25:04 Nosebleed, Adult Nosebleed, Adult A nosebleed is when blood comes out of the nose. Nosebleeds are common. Usually, they are not a sign of a serious condition. Nosebleeds can happen if a blood vessel in your nose starts to bleed or if the lining of your nose (mucous membrane) cracks. They are commonly caused by: Allergies. Colds. Picking your nose. Blowing your nose too hard. An injury from sticking an object into your nose or getting hit in the nose. Dry or cold air. Less common causes of nosebleeds include: Toxic fumes. Something abnormal in the nose or in the air-filled spaces in the bones of the face (sinuses). Growths in the nose, such as polyps. Blood thinners or conditions that cause blood to clot slowly. Certain illnesses or procedures that irritate or dry out the nasal passages. Follow these instructions at home: When you have a nosebleed: Sit down and tilt your head slightly forward. Use a clean towel or tissue to pinch your nostrils under the bony part of your nose. After 5 minutes, let go of your nose and see if bleeding starts again. Do not release pressure before that time. If there is still bleeding, repeat the pinching and holding for 5 minutes or until the bleeding stops. Do not place tissues or gauze in the nose to stop the bleeding. Avoid lying down and avoid tilting your head backward. That may make blood collect in the throat and cause gagging or coughing. Use a nasal spray decongestant to help with a nosebleed as told by your health care provider. After a nosebleed: Avoid blowing your nose or sniffing for a number of hours. Avoid straining, lifting, or bending at the waist for several days. You may go back to other normalactivities as you are able. If you are taking aspirin or blood thinners and you have nosebleeds, talk to your health care provider. These medicines make bleeding more likely. ?Ask your health care provider if you should stop taking the medicines or if you should adjust the dose. ?Do not stop taking medicines that your health care provider has recommended unless he or she tellsyou to stop taking them. If your nosebleed was caused by dry mucous membranes, use gybw-qnc-xyppbcd saline nasal spray or gel and a humidifier as told by your health care provider. This will keep the mucous membranes moist and allow them to heal. If you need to use one of these products: ?Choose one that is water-soluble. ?Use only as much as you need and use it only as often as needed. ?Do not lie down right after you use it. If you get nosebleeds often, talk with your health care provider about medical treatments. Options may include: ?Nasal cautery. This treatment stops and prevents nosebleeds by using a chemical swab or electricaldevice to lightly burn tiny blood vessels inside the nose. ?Nasal packing. A gauze or other material is placed in the nose to keep constant pressure on the bleeding area. Contact a health care provider if you: Have a fever. Get nosebleeds often or more often than usual. Bruise very easily. Have a nosebleed from having something stuck in your nose. Have bleeding in your mouth. Vomit or cough up brown material. Have a nosebleed after you start a new medicine. Get help right away if: You have a nosebleed after a fall or a head injury. Your nosebleed does not go away after 20 minutes. You feel dizzy or weak. You have unusual bleeding from other parts of your body. You have unusual bruising on other parts of your body. You become sweaty. You vomit blood. Summary A nosebleed is when blood comes out of the nose. Common causes include allergies, an injury to the nose, or cold or dry air. Initial treatment includes applying pressure for 5 minutes. Moisturizing the nose with saline nasal spray or gel after a nosebleed may help prevent future bleeding. Get help right away if your nosebleed does not go away after 20 minutes. This information is not intended to replace advice given to you by your health care provider. Make sure you discuss any questions you have with your health care provider. Document Revised: 03/14/2020 Document Reviewed: 03/14/2020 [employer] Patient Education 2021 [employer] 01/16/2023 16:25:04 Migraine Headache Migraine Headache A migraine headache is an intense, throbbing pain on one side or both sides of the head. Migraine headaches may also cause other symptoms, such as nausea, vomiting, and sensitivity to light and noise. A migraine headache can last from 4 hours to 3 days. Talk with your doctor about what things may bring on (trigger) your migraine headaches. What are the causes? The exact cause of this condition is not known. However, a migraine may be caused when nerves in the brain become irritated and release chemicals that cause inflammation of blood vessels. This inflammation causes pain. This condition may be triggered or caused by: Drinking alcohol. Smoking. Taking medicines, such as: ?Medicine used to treat chest pain (nitroglycerin). ? control pills. ?Estrogen. ?Certain blood pressure medicines. Eating or drinking products that contain nitrates, glutamate, aspartame, or tyramine. Aged cheeses,chocolate, or caffeine may also be triggers. Doing physical activity. Other things that may trigger a migraine headache include: Menstruation. . Hunger. Stress. Lack of sleep or too much sleep. Weather changes. Fatigue. What increases the risk? The following factors may make you more likely to experience migraine headaches: Being a certain age. This condition is more common in people who are 25 55 years old. Being female. Having a family history of migraine headaches. Being . Having a mental health condition, such as depression or anxiety. Being obese. What are the signs or symptoms? The main symptom of this condition is pulsating or throbbing pain. This pain may: Happen in any area of the head, such as on one side or both sides. Interfere with daily activities. Get worse with physical activity. Get worse with exposure to bright lights or loud noises. Other symptoms may include: Nausea. Vomiting. Dizziness. General sensitivity to bright lights, loud noises, or smells. Before you get a migraine headache, you may get warning signs (an aura). An aura may include: Seeing flashing lights or having blind spots. Seeing bright spots, halos, or zigzag lines. Having tunnel vision or blurred vision. Having numbness or a tingling feeling. Having trouble talking. Having muscle weakness. Some people have symptoms after a migraine headache (postdromal phase), such as: Feeling tired. Difficulty concentrating. How is this diagnosed? A migraine headache can be diagnosed based on: Your symptoms. A physical exam. Tests, such as: ?CT scan or an MRI of the head. These imaging tests can help rule out other causes of headaches. ?Taking fluid from the spine (lumbar puncture) and analyzing it (cerebrospinal fluid analysis, or CSF analysis). How is this treated? This condition may be treated with medicines that: Relieve pain. Relieve nausea. Prevent migraine headaches. Treatment for this condition may also include: Acupuncture. Lifestyle changes like avoiding foods that trigger migraine headaches. Biofeedback. Cognitive behavioral therapy. Follow these instructions at home: Medicines Take lauw-myh-xwcfodq and prescription medicines only as told by your health care provider. Ask your health care provider if the medicine prescribed to you: ?Requires you to avoid driving or using heavy machinery. ?Can cause constipation. You may need to take these actions to prevent or treat constipation: ?Drink enough fluid to keep your urine pale yellow. ?Take llmh-pmu-ptxiivg or prescription medicines. ?Eat foods that are high in fiber, such as beans, whole grains, and fresh fruits and vegetables. ?Limit foods that are high in fat and processed sugars, such as fried or sweet foods. Lifestyle Do not drink alcohol. Do not use any products that contain nicotine or tobacco, such as cigarettes, e- cigarettes, and chewing tobacco. If you need help quitting, ask your health care provider. Get at least 8 hours of sleep every night. Find ways to manage stress, such as meditation, deep breathing, or yoga. General instructions Keep a journal to find out what may trigger your migraine headaches. For example, write down: ?What you eat and drink. ?How much sleep you get. ?Any change to your diet or medicines. If you have a migraine headache: ?Avoid things that make your symptoms worse, such as bright lights. ?It may help to lie down in a dark, quiet room. ?Do not drive or use heavy machinery. ?Ask your health care provider what activities are safe for you while you are experiencing symptoms. Keep all follow-up visits as told by your health care provider. This is important. Contact a health care provider if: You develop symptoms that are different or more severe than your usual migraine headache symptoms. You have more than 15 headache days in one month. Get help right away if: Your migraine headache becomes severe. Your migraine headache lasts longer than 72 hours. You have a fever. You have a stiff neck. You have vision loss. Your muscles feel weak or like you cannot control them. You start to lose your balance often. You have trouble walking. You faint. You have a seizure. Summary A migraine headache is an intense, throbbing pain on one side or both sides of the head. Migraines may also cause other symptoms, such as nausea, vomiting, and sensitivity to light and noise. This condition may be treated with medicines and lifestyle changes. You may also need to avoid certain things that trigger a migraine headache. Keep a journal to find out what may trigger your migraine headaches. Contact your health care provider if you have more than 15 headache days in a month or you develop symptoms that are different or more severe than your usual migraine headache symptoms. This information is not intended to replace advice given to you by your health care provider. Make sure you discuss any questions you have with your health care provider. Document Revised: 09/08/2019 Document Reviewed: 06/29/2019 [employer] Patient Education 2022 [employer] Follow Up Care 01/16/2023 15:36:27 With:[employer] [facility] Address: [address] [place] [address] [place] [address] Business (1) When:01/19/2023 16:24:57 With:MINAL NEWMAN Address: [address] [facility], [address] [address] Business (1) When:Within 3 Day(s) [facility]08-19-2023 Evaluation + Plan noteExtracted from: Title:ED Note Author:Gus Mcgowan DO Date:12/29 02/20 Epistaxis (R04.0: Epistaxis) Migraine (G43.909: Migraine, unspecified, not intractable, without status migrainosus) Orders: oxymetazoline nasal, 2 spray(s), Nasal, BID, 15 mL, Refill(s) 0, [facility] [id number], 164, cm, 01/16/23 15:42:00 EDT, Height/Length Dosing, 97.8, kg, 01/16/23 15:42:00 EDT, Weight Dosing Automated Diff Beta hCG Qual CBC w/ Auto Diff Comprehensive Metabolic Panel eGFR PT & PTT [facility]07-02-2023 Hospital Discharge instructions Patient Education 11/29/2022 09:57:11 Pharyngitis, Nmgi-rk-Ifbe Pharyngitis Pharyngitis is a sore throat (pharynx). This is when there is redness, pain, and swelling in your throat. Most of the time, this condition gets better on its own. In some cases, you may need medicine. What are the causes? An infection from a virus. An infection from bacteria. Allergies. What increases the risk? Being 5 24 years old. Being in crowded environments. These include: ?Daycares. ?Schools. ?Dormitories. Living in a place with cold temperatures outside. Having a weakened disease-fighting (immune) system. What are the signs or symptoms? Symptoms may vary depending on the cause. Common symptoms include: Sore throat. Tiredness (fatigue). Low-grade fever. Stuffy nose. Cough. Headache. Other symptoms may include: Glands in the neck (lymph nodes) that are swollen. Skin rashes. Film on the throat or tonsils. This can be caused by an infection from bacteria. Vomiting. Red, itchy eyes. Loss of appetite. Joint pain and muscle aches. Tonsils that are temporarily bigger than usual (enlarged). How is this treated? Many times, treatment is not needed. This condition usually gets better in 3 4 days without treatment. If the infection is caused by a bacteria, you may be need to take antibiotics. Follow these instructions at home: Medicines Take sfql-ngo-dtfiber and prescription medicines only as told by your doctor. If you were prescribed an antibiotic medicine, take it as told by your doctor. Do not stop taking the antibiotic even if you start to feel better. Use throat lozenges or sprays to soothe your throat as told by your doctor. Children can get pharyngitis. Do not give your child aspirin. Managing pain To help with pain, try: Sipping warm liquids, such as: ?Broth. ?Herbal tea. ?Warm water. Eating or drinking cold or frozen liquids, such as frozen ice pops. Rinsing your mouth (gargle) with a salt water mixture 3 4 times a day or as needed. ?To make salt water, dissolve 1 tsp (3 6 g) of salt in 1 cup (237 mL) of warm water. ?Do not swallow this mixture. Sucking on hard candy or throat lozenges. Putting a cool-mist humidifier in your bedroom at night to moisten the air. Sitting in the bathroom with the door closed for 5 10 minutes while you run hot water in the shower. General instructions Do not smoke or use any products that contain nicotine or tobacco. If you need help quitting, ask your doctor. Rest as told by your doctor. Drink enough fluid to keep your pee (urine) pale yellow. How is this prevented? Wash your hands often for at least 20 seconds with soap and water. If soap and water are not available, use hand jewelry setter. Do not touch your eyes, nose, or mouth with unwashed hands. Wash hands after touching these areas. Do not share cups or eating utensils. Avoid close contact with people who are sick. Contact a doctor if: You have large, tender lumps in your neck. You have a rash. You cough up green, yellow-brown, or bloody spit. Get help right away if: You have a stiff neck. You drool or cannot swallow liquids. You cannot drink or take medicines without vomiting. You have very bad pain that does not go away with medicine. You have problems breathing, and it is not from a stuffy nose. You have new pain and swelling in your knees, ankles, wrists, or elbows. These symptoms may be an emergency. Get help right away. Call your local emergency services (911 inthe [place] Do not wait to see if the symptoms will go away. Do not drive yourself to the hospital. Summary Pharyngitis is a sore throat (pharynx). This is when there is redness, pain, and swelling in your throat. Most of the time, pharyngitis gets better on its own. Sometimes, you may need medicine. If you were prescribed an antibiotic medicine, take it as told by your doctor. Do not stop taking the antibiotic even if you start to feel better. This information is not intended to replace advice given to you by your health care provider. Make sure you discuss any questions you have with your health care provider. Document Revised: 08/13/2021 Document Reviewed: 08/13/2021 [employer] Patient Education 2022 [employer] Follow Up Care 11/29/2022 09:09:51 With:MINAL NEWMAN Address: [address] [place] [address], [address] [address] Business (1) When:12/02/2022 09:48:03 [facility]06-28-2023 Evaluation + Plan noteExtracted from: Title:ED Note Author:Tavo Angel PA-C te:11/25/22 Pharyngitis (J02.9: Acute ph aryngitis, unspecified) Orders: dexamethasone, 10 mg = 2.5 mL, Injection, Oral, Once, Stop date 11/25/22 11:48:00 EDT, STAT, Start date 11/25/22 11:48:00 EDT, 11/25/22 11:48:00 EDT Group A Strep by PCR Rapid Strep w/rfx [facility]06-28-2023 Hospital Discharge instructions Patient Education 11/25/2022 11:59:45 Pharyngitis, Ojbg-cm-Mkft Pharyngitis Pharyngitis is a sore throat (pharynx). This is when there is redness, pain, and swelling in your throat. Most of the time, this condition gets better on its own. In some cases, you may need medicine. What are the causes? An infection from a virus. An infection from bacteria. Allergies. What increases the risk? Being 5 24 years old. Being in crowded environments. These include: ?Daycares. ?Schools. ?Dormitories. Living in a place with cold temperatures outside. Having a weakened disease-fighting (immune) system. What are the signs or symptoms? Symptoms may vary depending on the cause. Common symptoms include: Sore throat. Tiredness (fatigue). Low-grade fever. Stuffy nose. Cough. Headache. Other symptoms may include: Glands in the neck (lymph nodes) that are swollen. Skin rashes. Film on the throat or tonsils. This can be caused by an infection from bacteria. Vomiting. Red, itchy eyes. Loss of appetite. Joint pain and muscle aches. Tonsils that are temporarily bigger than usual (enlarged). How is this treated? Many times, treatment is not needed. This condition usually gets better in 3 4 days without treatment. If the infection is caused by a bacteria, you may be need to take antibiotics. Follow these instructions at home: Medicines Take uufe-xpv-fanydtq and prescription medicines only as told by your doctor. If you were prescribed an antibiotic medicine, take it as told by your doctor. Do not stop taking the antibiotic even if you start to feel better. Use throat lozenges or sprays to soothe your throat as told by your doctor. Children can get pharyngitis. Do not give your child aspirin. Managing pain To help with pain, try: Sipping warm liquids, such as: ?Broth. ?Herbal tea. ?Warm water. Eating or drinking cold or frozen liquids, such as frozen ice pops. Rinsing your mouth (gargle) with a salt water mixture 3 4 times a day or as needed. ?To make salt water, dissolve 1 tsp (3 6 g) of salt in 1 cup (237 mL) of warm water. ?Do not swallow this mixture. Sucking on hard candy or throat lozenges. Putting a cool-mist humidifier in your bedroom at night to moisten the air. Sitting in the bathroom with the door closed for 5 10 minutes while you run hot water in the shower. General instructions Do not smoke or use any products that contain nicotine or tobacco. If you need help quitting, ask your doctor. Rest as told by your doctor. Drink enough fluid to keep your pee (urine) pale yellow. How is this prevented? Wash your hands often for at least 20 seconds with soap and water. If soap and water are not available, use hand jewelry setter. Do not touch your eyes, nose, or mouth with unwashed hands. Wash hands after touching these areas. Do not share cups or eating utensils. Avoid close contact with people who are sick. Contact a doctor if: You have large, tender lumps in your neck. You have a rash. You cough up green, yellow-brown, or bloody spit. Get help right away if: You have a stiff neck. You drool or cannot swallow liquids. You cannot drink or take medicines without vomiting. You have very bad pain that does not go away with medicine. You have problems breathing, and it is not from a stuffy nose. You have new pain and swelling in your knees, ankles, wrists, or elbows. These symptoms may be an emergency. Get help right away. Call your local emergency services (911 int [place] Do not wait to see if the symptoms will go away. Do not drive yourself to the hospital. Summary Pharyngitis is a sore throat (pharynx). This is when there is redness, pain, and swelling in your throat. Most of the time, pharyngitis gets better on its own. Sometimes, you may need medicine. If you were prescribed an antibiotic medicine, take it as told by your doctor. Do not stop taking the antibiotic even if you start to feel better. This information is not intended to replace advice given to you by your health care provider. Make sure you discuss any questions you have with your health care provider. Document Revised: 08/13/2021 Document Reviewed: 08/13/2021 [employer] Patient Education 2022 [employer] Follow Up Care 11/25/2022 11:17:52 With:MINAL NEWMAN Address: [address] , [address] [address] Business (1) When:11/28/2022 11:49:42 Comments:Follow-up with your primary care provider in 3 to 5 days. If symptoms worsen, do not improve, or new symptoms arise please report back to emergency department for further evaluation. [facility]06-18-2023 Hospital Discharge instructions Patient Education 11/14/2022 23:53:31 Urinary Tract Infection, Adult Urinary Tract Infection, Adult A urinary tract infection (UTI) is an infection of any part of the urinary tract. The urinary tractincludes the kidneys, ureters, bladder, and urethra. These organs make, store, and get rid of urinein the body. An upper UTI affects the ureters and kidneys. A lower UTI affects the bladder and urethra. What are the causes? Most urinary tract infections are caused by bacteria in your genital area around your urethra, where urine leaves your body. These bacteria grow and cause inflammation of your urinary tract. What increases the risk? You are more likely to develop this condition if: You have a urinary catheter that stays in place. You are not able to control when you urinate or have a bowel movement (incontinence). You are female and you: ?Use a spermicide or diaphragm for control. ?Have low estrogen levels. ?Are . You have certain genes that increase your risk. You are sexually active. You take antibiotic medicines. You have a condition that causes your flow of urine to slow down, such as: ?An enlarged prostate, if you are male. ?Blockage in your urethra. ?A kidney stone. ?A nerve condition that affects your bladder control (neurogenic bladder). ?Not getting enough to drink, or not urinating often. You have certain medical conditions, such as: ?Diabetes. ?A weak disease-fighting system (immunesystem). ?Sickle cell disease. ?Gout. ?Spinal cord injury. What are the signs or symptoms? Symptoms of this condition include: Needing to urinate right away (urgency). Frequent urination. This may include small amounts of urine each time you urinate. Pain or burning with urination. Blood in the urine. Urine that smells bad or unusual. Trouble urinating. Cloudy urine. Vaginal discharge, if you are female. Pain in the abdomen or the lower back. You may also have: Vomiting or a decreased appetite. Confusion. Irritability or tiredness. A fever or chills. Diarrhea. The first symptom in older adults may be confusion. In some cases, they may not have any symptoms until the infection has worsened. How is this diagnosed? This condition is diagnosed based on your medical history and a physical exam. You may also have other tests, including: Urine tests. Blood tests. Tests for STIs (sexually transmitted infections). If you have had more than one UTI, a cystoscopy or imaging studies may be done to determine the cause of the infections. How is this treated? Treatment for this condition includes: Antibiotic medicine. Cohl-ipa-jusvffu medicines to treat discomfort. Drinking enough water to stay hydrated. If you have frequent infections or have other conditions such as a kidney stone, you may need to see a health care provider who specializes in the urinary tract (urologist). In rare cases, urinary tract infections can cause sepsis. Sepsis is a life- threatening condition that occurs when the body responds to an infection. Sepsis is treated in the hospital with IV antibiotics, fluids, and other medicines. Follow these instructions at home: Medicines Take imlm-cte-cofxymn and prescription medicines only as told by your health care provider. If you were prescribed an antibiotic medicine, take it as told by your health care provider. Do notstop using the antibiotic even if you start to feel better. General instructions Make sure you: ?Empty your bladder often and completely. Do not hold urine for long periods of time. ?Empty your bladder after sex. ?Wipe from front to back after urinating or having a bowel movement if you are female. Use each tissue only one time when you wipe. Drink enough fluid to keep your urine pale yellow. Keep all follow-up visits. This is important. Contact a health care provider if: Your symptoms do not get better after 1 2 days. Your symptoms go away and then return. Get help right away if: You have severe pain in your back or your lower abdomen. You have a fever or chills. You have nausea or vomiting. Summary A urinary tract infection (UTI) is an infection of any part of the urinary tract, which includes the kidneys, ureters, bladder, and urethra. Most urinary tract infections are caused by bacteria in your genital area. Treatment for this condition often includes antibiotic medicines. If you were prescribed an antibiotic medicine, take it as told by your health care provider. Do notstop using the antibiotic even if you start to feel better. Keep all follow-up visits. This is important. This information is not intended to replace advice given to you by your health care provider. Make sure you discuss any questions you have with your health care provider. Document Revised: 12/27/2020 Document Reviewed: 12/27/2020 [employer] Patient Education 2022 [employer] Follow Up Care 11/14/2022 23:02:53 With:MINAL DELGADOCASI Address: [address] , [place] [address] [place] [address]- Business (1) When:11/17/2022 Comments:Return to the emergency room if your symptoms get worse, vomiting, fever or any new symptoms [facility]06-17-2023 Evaluation + Plan noteExtracted from: Title:ED Note Author:Antonia Singh, Tim Dao te:11/14/22 1. Urinary tract infection ( N39.0: Urinary tract infection, site not specified) Orders: cephalexin, 500 mg = 1 cap(s), Cap, Oral, Once, Stop date 11/14/22 23:44:00 EDT, STAT, Start date 11/14/22 23:44:00 EDT, 11/14/22 23:44:00 EDT cephalexin, 500 mg = 1 cap(s), Oral, q6hr, X 7 day(s), # 28 cap(s), Refills(s) 0 phenazopyridine, 200 mg = 1 tab(s), Oral, TID, X 2 day(s), # 6 tab(s), Refills(s) 0 phenazopyridine, 200 mg = 2 tab(s), Tab, Oral, Once, Stop date 11/14/22 23:44:00 EDT, STAT, Start date 11/14/22 23:44:00 EDT, 11/14/22 23:44:00 EDT U Beta Hcg Qual UA With Cult Reflex Urine Culture Diagnostic Tests Pending * Urine Culture 11/14/22 [facility]10-07-2022 History of Present illness Narrative* Adrianna Ashford PA-C - 03/06/2022 10:26 AM EDT Images from the original note were not included. Sanford Degroot MD P Vikram Non Ivf Pool Could you please call this pt for me and relay the message I sent to her yesterday about her MRI and plans? Thank you! Sapna Sawyer MD unable to reach, left message to return my call. Left a MC asking to check her MC. Adrianna Ashford PA-C March 06, 2022 10:31 AM documented in [facility] encounter[facility]22 NoteHNO ID: [id number] Author: BRITNEY Blanc) Service: ? Author Type: Technologist Type: Progress Notes Filed: 01/19/2022 3:26 PM Note Text: Radiology Service Progress Note DATE OF SERVICE: January 19, 2022 TIME: 3:26 PM PATIENT IDENTITY VERIFICATION COMPLETED USING TWO (2) STANDARD IDENTIFIERS: Name and Date of confirmed by patient verbally. FALL SCREENING: Has the patient had 2 falls in the last year or 1 fall with injury or currently using an Ambulatory Assistive Device (Walker, Cane, Wheelchair, Crutches, etc.)? No PATIENT GENDER DATA: Female. status: : No status: NO. PATIENT RELEVANT IMPLANT DATA REVIEWED: Yes ALLERGIES: Reviewed and unchanged CONTRAST ALLERGY: NO. EXAM: MRI - CONTRAST TYPE: GROUP II PERIPHERAL IV DATA: Ambulatory: A peripheral IV was started in the Left antecubital site with a Angio cath: 22 gauge. RADIOLOGY DEPARTMENT: MR; Exam(s) Completed: Head: Pituitary SIGNATURE: RT Jayashree(Diego) PATIENT NAME: Osman Cohen DATE: January 19, 2022 TIME: 3:26 [facility]08-22-2022 History of Present illness Narrative* BRITNEY Blanc) - 01/19/2022 3:00 PM EDT Radiology Service Progress Note DATE OF SERVICE: January 19, 2022 TIME: 3:26 PM PATIENT IDENTITY VERIFICATION COMPLETED USING TWO (2) STANDARD IDENTIFIERS: Name and Date of confirmed by patient verbally. FALL SCREENING: Has the patient had 2 falls in the last year or 1 fall with injury or currently using an Ambulatory Assistive Device (Walker, Cane, Wheelchair, Crutches, etc.)? No PATIENT GENDER DATA: Female. status: : No status: NO. PATIENT RELEVANT IMPLANT DATA REVIEWED: Yes ALLERGIES: Reviewed and unchanged CONTRAST ALLERGY: NO. EXAM: MRI - CONTRAST TYPE: GROUP II PERIPHERAL IV DATA: Ambulatory: A peripheral IV was started in the Left antecubital site with a Angio cath: 22 gauge. 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 noteNo assessment information availableA[facility] Work Phone: evaluation note* Diagnosis Viral URI- Primary Acute upper respiratory infections of unspecified site [facility] Diagnosis Onset Date Resolution Status Admit Date Migraine acute September 20 1:19pm Obesity, Class III, BMI 40-4 9.9 (morbid obesity) acute September 20 5 1:19pm Prediabetes acute September 20, 2 025 1:19pm [facility] Work Phone: Evaluation note* Diagnosis Encounter for screening for cervical cancer- Primary Encounter for gynecological examination without abnormal finding PCOS (polycystic ovarian syndrome) Polycystic ovaries [facility] Diagnosis PCOS (polycystic ovarian syndrome) Polycystic ovaries General counseling and advice on contraceptive management Other general counseling and advice for contraceptive management Encounter for gynecological examination [facility] N[facility] No data available for this section [facility] Additional Instructions Push fluids Rest Tylenol or Motrin if needed for pain Follow-up with your PCP Return here if any problems persist or worsenAult[facility] Work Phone: Hospital Discharge instructions No data available for this section [facility] Progress note No data available for this section [facility] Summary Purpose Family History No Family History Records Found Relationship Condition Age at Onset Recorded Date/T giovani father Hypertension Unknown Diabetes mellitus Unknown Bipolar disorder Unknown mother Diabetes mellitus Unknown sister Diabetes mellitus Unknown sister Gestational diabetes mellitus (GDM) Unknown maternal grandfather Malignant neoplasm Unknown Cerebrovascular accident (CVA) Unknown Seizures Unknown maternal grandmother Diabetes mellitus Unknown paternal grandfather Myocardial infarction Unknown Unknown paternal grandmother Unknown Advance Directives No Advanced Directives Records Found Advance Directive Response Recorded Date/ Time Advance Directives No October 18 8 8:13am Chief Complaint and Reason for Visit Chief Complaint Headache Chief Complaint Headache fever Chief Complaint Admit Date Self- [facility] ([facility]) September 20, 2024 1:19pm Reason for Visit Admit Date Migraine September 20, 2024 1:1 9pm Obesity, Class III, BMI 40-49.9 (morbid obesity) September 20, 2024 1:19pm Prediabetes September 20, 2024 1:1 9pm Additional Source Comments INFORMATION SOURCE (unrecogn ized section and content) DATE CREATED AUTHOR 08/22/2021 [facility] DATE CREATED AUTHOR AUTHOR'S ORGANIZ ATION 01/23/2022 [facility] DATE CREATED AUTHOR AUTHOR'S ORGANIZ ATION 05/23/2022 [facility] DATE CREATED AUTHOR AUTHOR'S ORGANIZ ATION 08/06/2022 [facility] DATE CREATED AUTHOR AUTHOR'S ORGANIZ ATION 09/02/2022 [facility] DATE CREATED AUTHOR AUTHOR'S ORGANIZ ATION 04/01/2023 [facility] DATE CREATED AUTHOR AUTHOR'S ORGANIZ ATION 10/30/2023 [facility] DATE CREATED AUTHOR AUTHOR'S ORGANIZ ATION 10/26/2024 [facility] DATE CREATED AUTHOR AUTHOR'S ORGANIZ ATION 11/26/2024 [facility] DATE CREATED AUTHOR AUTHOR'S ORGANIZ ATION 01/02/[address] [facility] DATE CREATED AUTHOR AUTHOR'S ORGANIZ ATION 01/06/2025 [facility] Source Comments (unrecognize d section and content) In the event this informatio n is protected by the Federal Confidentiality of Alcohol and Drug Abuse Patient Records regulations: The Federal rules restrict any use of the information to criminally investigate or prosecute any alcohol or drug abuse patient.[facility] CenterIn the event this information is protected by the Federal Confidentiality of Alcohol and Drug Abuse Patient Records regulations: The Federal rules restrict any use of the information to criminally investigate or prosecute any alcohol or drug abuse patient.[facility] Reason for Visit (unrecogniz ed section and content) Specialty Diagnoses / Procedures Referred By Margaret pang Referred To Contact MR IMAGING Diagnoses Amenorrhea Procedures MRI PITUITARY WO/W IVCON MRI BRAIN BRAIN STEM W/O W/CONTRAST MATERIAL Sanford Degroot MD [address] [place] [address] Mr Imaging Referral ID Status Reason Start Date Expiration Date V isits Requested Visits Authorized [id number] Closed Auto-Generate d Referral 07/02/2021 08/01/2022 2 2 Reason Comments Follow Up Reason Comments Gynecologic Exam Patient present for yearly. Patient denies any issues or complaints. Patient would like to discuss other control options. Reason Comments Follow-up Care Teams (unrecognized sec tion and content) Team Status: Active Member Role Status Dates Minal Newman , Primary Care Provider Active Team Status: Inactive Member Role Status Dates Minal Newman , DO Primary Care Provider Active Toya Platt APRN Emergency Provider Active Team Status: Inactive Member Role Status Dates Minal Trent , DO Primary Care Provider Active Teja Beth APRN Emergency Provider Active [employer] Relationship Specialty Start Date End Date Minal Newman DO [address] [place] [address] PCP - General Family Medicine 11/17/22 Minal Newman, DO [address] [place] [address] PCP - [employer] 05/31/23 Team Status: Inactive Member Role Status Dates Minal Newman DO Primary Care Provider Active Start: September 20, 2024 End: September 20, 2024 Kenya Cohen APRN Attending Provider Active Start: September 20, 2024 End: September 20, 2024 [employer] Relationship Specialty Start Date End Date Minal Newman DO [address] [place] [address] PCP - General Family Medicine 11/17/22 Minal Newman DO [address] [place] [address] PCP - [employer] 05/31/23 [employer] Relationship Specialty Start Date End Date Minal Newman DO [address] [place] [address] PCP - General Family Medicine 11/17/22 Goals (unrecognized section and content) Goals may be documented in a n alternate section No data available for this section No data available for this section No data available for this sectionGoals may be documented in an alternate section No data available for this section No data available for this section No data available for this sectionNo Information No data available for this section No data available for this section No data available for this section No data available for this section No data available for this sectionGoals may be documented in an alternate section No data available for this section FOR RECORDS PERTAINING TO PATIENTS WHO ARE OR HAVE BEEN ENROLLED IN A CHEMICAL DEPENDENCY/SUBSTANCEABUSE PROGRAM, SOME INFORMATION MAY BE OMITTED. This clinical summary was aggregated from multiple sources. Caution should be exercised in using it in the provision of clinical care. This summary normalizes information from multiple sources, and as a consequence, information in this document may materially change the coding, format and clinical context of patient data. In addition, data may be omitted in some cases. CLINICAL DECISIONS SHOULD BE BASED ON THE PRIMARY CLINICAL RECORDS. [facility]. provides no warranty or guarantee of the accuracy or completeness of information in this document.
--- NOTE | 2025-01-17 13:05 | ED.URI1 ---
HPI - URI/Sore Throat General Chief Complaint: Upper Respiratory Infection Stated Complaint: URTI COMPLAINTS Time Seen by Provider: 01/17/25 10:13 Source: patient History of Present Illness HPI Narrative: The patient is a 24-year-old female is coming to the ER with almost 7 to 10 days history of nasal congestion cough and sore throat, patient mentioned that she has noticed today that she has some greenish nasal discharge and that was new there was no fever no decreased p.o. intake no other complaints The patient has been trying NyQuil and nkpr-tlj-brnhuzh medication for the last week with no improvement Related Data Home Medications ?Medication ?Instructions ?Recorded ?Confirmed norgestimate 0.25 mg-ethinyl 1 tab PO DAILY 10/30/24 01/17/25 estradiol 0.035 mg tablet (Sprintec (28)) Previous Rx's ?Medication ?Instructions ?Recorded amoxicillin 875 mg-potassium 1 tab PO Q12H #14 tabs 01/17/25 clavulanate 125 mg tablet prednisone 20 mg tablet 40 mg (2 x 20 mg) PO DAILY 4 days 01/17/25 #8 tabs Allergies Allergy/AdvReac Type Severity Reaction Status Date / Time latex AdvReac Mild Hives Verified 01/17/25 09:56 Review of Systems ROS Status of ROS 10 or more systems reviewed and unremarkable except as noted in history and below PFSH PFSH Social History Little interest or pleasure in doing things: not at all Feeling down, depressed, or hopeless: not at all Exam Narrative Exam Narrative: Nurses notes and vital signs reviewed and patient is not hypoxic. General: Well-appearing and in no apparent distress. Skin: Warm, dry, no pallor noted. No rash. Head: Normocephalic, atraumatic. Neck: Supple, non-tender. Eye: Pupils are equal, round and EOMI. No scleral icterus. Ears, Nose, Mouth, and Throat: The patient pharynx shows bilateral enlarged tonsils with no exudate. and the airway is not compromised. The uvula is in the middle and not deviated. The patient have bilateral congested nasal mucosa with the right side noted to be more congested and red with whitish discharge there is tenderness upon palpation of the mid to the area. Cardiovascular: Regular Rate and Rhythm without murmur, gallop or rub. Respiratory: No accessory muscle use or respiratory distress. Lungs are clear to auscultation, no wheezing, rales or rhonchi Chest Wall: no tenderness Back: No midline thoracic or lumbar vertebral tenderness. No CVA tenderness Musculoskeletal: normal ROM, no calf or popliteal tenderness, no lower extremity edema/swelling GI: Abdomen is soft, non-distended. Normal bowel sounds. No masses appreciated. No tenderness to palpation. No rebound, guarding, or rigidity noted. Neurological: A&O x4. No cranial nerve dysfunction observed. Constitutional Vital Signs, click to edit/add: Last Vital Signs Temp 98.3 F 01/17/25 09:56 Pulse 84 01/17/25 09:56 Resp 18 01/17/25 09:56 BP 133/91 01/17/25 09:56 Pulse Ox 98 01/17/25 09:56 O2 Del Method Room Air 01/17/25 09:56 Course Vital Signs Vital signs: Vital Signs Temperature 98.3 F 01/17/25 09:56 Pulse Rate 84 01/17/25 09:56 Respiratory Rate 18 01/17/25 09:56 Blood Pressure 133/91 01/17/25 09:56 Pulse Oximetry 98 01/17/25 09:56 Oxygen Delivery Method Room Air 01/17/25 09:56 Temperature 98.3 F 01/17/25 09:56 Pulse Rate 84 01/17/25 09:56 Respiratory Rate 18 01/17/25 09:56 Blood Pressure 133/91 01/17/25 09:56 Pulse Oximetry 98 01/17/25 09:56 Oxygen Delivery Method Room Air 01/17/25 09:56 MDM - URI/Sore Throat MDM Narrative Medical decision making narrative: The patient presentation is concerning for possible bacterial on top of viral infection especially with the fact that the patient did not respond to the gnoy-dtz-nkwzcve medication The patient is not sick looking And right now she will be treated with the Augmentin and prednisone for the next few days instructed to monitor for improvement in the next 48 hours The patient in case of no improvement to come back to the ER The patient is to follow up with primary care physician in next 2-3 days or to return to the emergency department should any of the signs or symptoms worsen or new symptoms develop. The patient agrees with the following Diagnosis and Treatment plan and the patient will be discharged home. Discharge Plan Discharge Chief Complaint: Upper Respiratory Infection Clinical Impression: Sinusitis Patient Disposition: Home, Self-Care Time of Disposition Decision: 10:21 Condition: Good Prescriptions / Home Meds: New amoxicillin-pot clavulanate 875-125 mg tablet 1 tab PO Q12H Qty: 14 0RF prednisone 20 mg tablet 40 mg PO DAILY 4 Days Qty: 8 0RF No Action norgestimate-ethinyl estradiol [Sprintec (28)] 0.25-0.035 mg tablet 1 tab PO DAILY Print Language: Nigerian Instructions: Sinusitis (ED) Referrals: MINAL NEWMAN [Primary Care Provider, Unknown] - 1 week Discharge Date/Time: 01/17/25 10:32
== END 2025-01-17 10:32 | disposition home or self-care (01) ==
PROVIDERS: Emergency Provider Emergency Medicine; PCP Family Medicine
DX: J32.9 Chronic sinusitis, unspecified (principal)
CPT/HCPCS: 99283

== ENCOUNTER 2025-03-28 05:24 | Emergency (ER) | payer OTHER, SELFPAY ==
--- OUTSIDE RECORDS SUMMARY | 2024-09-20 10:21 | XMS_ITS | Continuity of Care Document ---
Author Organization [facility] Address [address] [place] [address] Phone Care Team Providers Care Quality Controller Name Role Phone Plank DO Teja Unavailable Unavailable Allergies, Adverse Reactions, Alerts Substance Reaction Status Criticality latex Active No Information Medications Medication Instructions Dosage Effective Dates (start - stop) Status Comments Ozempic 0.25 mg or 0.5 mg (2 mg/3 mL) subcutaneous pen injector inject (0.5MG) by subcutaneous route every week on the same day of each week 0.5 MG - Active Procedures Procedure Date OFFICE/OUTPATIENT VISIT, EST Bp scrn perf rec interval LDL-C <100 MG/DL DIAST BP 80-89 MM HG SYST BP >=130-139MM HG MED LIST DOCD IN [facility] RVW MEDS BY RX/DR IN [facility] Pt inelig neg scrn depres GLYCOSYLATED HEMOGLOBIN TEST OFFICE/OUTPATIENT VISIT, EST Bp scrn perf rec interval LDL-C <100 MG/DL DIAST BP < 80 MM HG SYST BP < 130 MM HG MED LIST DOCD IN [facility] RVW MEDS BY RX/DR IN [facility] PREV VISIT, EST, AGE 18-39 OFFICE/OUTPATIENT VISIT, EST Bp scrn perf rec interval LDL-C <100 MG/DL DIAST BP < 80 MM HG SYST BP < 130 MM HG MED LIST DOCD IN [facility] RVW MEDS BY RX/DR IN [facility] PT TOBACCO USE DONE [facility] TLK OFFICE/OUTPATIENT VISIT, NEW Bp scrn perf rec interval DIAST BP < 80 MM HG SYST BP >=130-139MM HG MED LIST DOCD IN [facility] RVW MEDS BY RX/DR IN [facility] PT TOBACCO USE DONE VD TLK ROUTINE VENIPUNCTURE Oral Hygiene Instruction Resin Composite 2s; Posterior 4 Resin Composite 2s; Posterior 4 Resin Composite 2s; Posterior 4 Oral Hygiene Instruction Prophylaxis Adult Nutrit Couns For Control Of [place] Dis Apr Oral Hygiene Instruction Resin Composite 2s; Posterior 3 Comp Oral Eval New/estab Patient 2022 Intraoral-complete Series (bw) Oral Hygiene Instruction PSYTX PT&/FAMILY 60 MINUTES PSYTX PT&/FAMILY 60 MINUTES PSYTX PT&/FAMILY 30 MINUTES PSYCH DIAGNOSTIC EVALUATION Pfizer COVID Vaccine Admin Dose 2 COVID-19 Pfizer Pfizer COVID Vaccine Admin Dose 1 COVID-19 Pfizer Advance Directives Directive Yes / No Effective Date File Name No Information Encounters Encounter Description Practice Location Reason(s) For Visit Diagnoses Date Provider Providers Copied on Encounter [facility], [address] [place] [address], [id number] , [place] tel: [phone] [facility] No Information Aug-2 - 5 Plank DO Teja. [address], [place], [id number] , [place]. tel: [phone] OFFICE/OUTPA TIENT VISIT, EST [facility], [address], [place], [id number] , [place] tel: [phone] [facility] knee problem (chief complaint) Weight problem (chief complaint) PrediabetesObesity, unspecifiedNeuropat hy of left lower extremityBody mass index [BMI] 45.0-49.9, adult Apr-0 - 5 Plank DO Teja. [address] [place] [address], [id number] , [place]. tel: [phone] OFFICE/OUTPA TIENT VISIT, EST [facility], [address], [place], [id number] , [place] tel: [phone] [facility] migraine f/u (chief complaint) Migraine, unspecified, not intractable, without status migrainosusPrediabe tesObesity, unspecifiedBody mass index [BMI] 39.0-39.9, adult Sep-0 - 4 Plank DO Teja. [address] [place] [address], [id number] , [place]. tel: [phone] PREV VISIT, EST, AGE 18-39 [facility], [address] [place] [address], [id number] , [place] tel: [phone] [facility] annual exam (chief complaint) Encounter for gynecological examination (general) (routine) without abnormal findings- STD High risk heterosexual behavior- STD screenIrregular periodsBody mass index [BMI]40.0-44.9, adult Nov-3 0- 4 Rice [facility] Esther. [address] [place] [address], [id number] , [place]. tel: [phone] OFFICE/OUTPA TIENT VISIT, EST [facility], [address], [place], [id number] , [place] tel: [phone] [facility] f/u labs (chief complaint) Body mass index [BMI]40.0-44.9, adultMigraine, unspecified, not intractable, without status migrainosusPrediabe quentin 4 Plank DO Teja. [address], [place], [id number] , [place]. tel: [phone] OFFICE/OUTPA TIENT VISIT, NEW [facility], [address], [place], [id number] , [place] tel: [phone] [facility] est care (chief complaint) lab draw (chief complaint) Body mass index [BMI]40.0-44.9, adultMigraine, unspecified, not intractable, without status migrainosusMenstrua l irregularityNeed for hepatitis C screening testEncounter for screening for HIVDiabetes mellitus screening 4 Plank DO Teja. [address], [place], [id number] , [place]. tel: [phone] [facility], [address] [place] [address], [id number] , [place] tel: [phone] Dental Clinic fill (chief complaint) Encounter for screening for dental disorders 4 Jacklyn DAVALOSS Cortney. . tel: [phone] [facility], [address] [place] [address], [id number] , [place] tel: [phone] Dental Clinic Filling (chief complaint) Body mass index [BMI] 34.0-34.9, adultEncounter for screening for dental disorders 4 Jacklyn DDS Cortney. . tel: [phone] [facility], [address] [place] [address], [id number] , [place] tel: [phone] Dental Clinic PA (chief complaint) Encounter for screening for dental disorders 3 Jacklyn DDS Cortney. . tel: [phone] [facility], [address], [place], [id number] , [place] tel: [phone] [facility] Generalized Anxiety DisorderDepression, unspecified Apr- 3 Capucini, [facility] Carrie. [address], [place], [id number] , [place]. tel: [phone] [facility], [address] [place] [address], [id number] , [place] tel: [phone] Dental Clinic SHONA (chief complaint) Encounter for screening for dental disorders 3 Jacklyn [facility] Cortney. . tel: [phone] [facility], [address] [place] [address], [id number] , [place] tel: [phone] [facility] Dental Clinic DENTAL NEW (chief complaint) Encounter for screening for dental disorders 3 Jacklyn [facility] Cortney. . tel: [phone] PSYTX PT&/FAMILY 60 MINUTES [facility], [address] [place] [address], [id number] , [place] tel: [phone] [facility] Generalized Anxiety DisorderDepression, unspecified Feb- 3 Capucini, [facility] Carrie. [address] [place] [address], [id number] , [place]. tel: [phone] PSYTX PT&/FAMILY 60 MINUTES [facility], [address] [place] [address], [id number] , [place] tel: [phone] [facility] Generalized Anxiety DisorderDepression, unspecified Oct-0 3 Capucini, [facility] Carrie. [address] [place] [address], [id number] , [place]. tel: [phone] PSYTX PT&/FAMILY 30 MINUTES [facility], [address] [place] [address], [id number] , [place] tel: [phone] [facility] Generalized Anxiety DisorderDepression, unspecified Jan 3 Capucini, [facility] Carrie. [address], [place], [id number] , [place]. tel: [phone] PSYCH DIAGNOSTIC EVALUATION [facility], [address] [place] [address], [id number] , [place] tel: [phone] [facility] Generalized Anxiety DisorderDepression, unspecified Sep- 3 Berenice, [facility] Carrie. [address], [place], [id number] , [place]. tel: [phone] [facility], [address] [place] [address], [id number] , [place] tel: [phone] [facility] No Information 1 Ned Benson. [address], [place], [id number] , [place]. tel: [phone] [facility], [address] [place] [address], [id number] , [place] tel: [phone] [facility] No Information 1 Visci DO Granda. [address] [place] [address], [id number] , [place]. tel: [phone] Family History Family Member Type Diagnosis Age At Onset Father Problem Asthma Sister Problem ADD/ADHD Father Problem Allergies Mother Problem Diabetes mellitus Father Problem Diabetes mellitus Father Problem Hypertension Mother Problem Migraine headaches Immunizations Vaccine Date Status Comments Pfizer COVID administered Source: New Imm unization Record Pfizer COVID administered Source: New Imm unization Record Payers Payer name Insurance type Covered republican ID Authoragusa tihiral(s) [facility] [id number] Social History Type Description Quantity Date Captured Comments Alcohol Use Details Unknown Caffeine Use Details Unknown Tobacco Use Status No Information Smoking Status No Information Sex Female Sexual Orientation Lesbian, wu or homosexual Gender Identity Genderqueer, neither exclusively male nor female Chief Complaint And Reason For Visit No Information Reason For Referral Reason For Referral No Information Plan Of Treatment Date Type Action Status Goal Hepatitis C screening. Due o n due Goal Tdap Vaccine. Due on 2024 due Goal PRAPARE ASSESSMENT. Due on A due Goal PAP. Due on due Goal RLP. Due on due Goal Lipid panel. Due on due Goal Depression screening. Due on due Goal Tdap. Due on due Goal Unhealthy drug use screening . Due on due Goal Influenza vaccine. Due on due Goal Lipid panel. Due on due Goal PAP. Due on due Goal PRAPARE ASSESSMENT. Due on A due Goal Hepatitis C screening. Due o n due Goal Influenza vaccine. Due on due Goal Depression screening. Due on due Goal Tdap. Due on due Goal Tdap Vaccine. Due on 2024 due Goal RLP. Due on due Goal Unhealthy drug use screening . Due on due Goal Unhealthy drug use screening . Due on due Goal Tdap. Due on due Goal Influenza vaccine. Due on due Goal RLP. Due on due Goal Lipid panel. Due on due Goal PRAPARE ASSESSMENT. Due on due Goal Hepatitis C screening. Due o n due Goal Tdap Vaccine. Due on 2023 due Goal Depression screening. Due on due Goal PAP. Due on due Goal PRAPARE ASSESSMENT. Due on due Goal Influenza vaccine. Due on due Goal Tdap Vaccine. Due on 2023 due Goal Unhealthy drug use screening . Due on due Goal Depression screening. Due on due Goal RLP. Due on due Goal Lipid panel. Due on due Goal Tdap. Due on due Goal Hepatitis C screening. Due o n due Goal PAP. Due on due Goal Hep A. Due on du e Goal Influenza vaccine. Due on due Goal Lipid panel. Due on due Goal Hepatitis C screening. Due o n due Goal Tdap Vaccine. Due on 2023 due Goal Unhealthy drug use screening . Due on due Goal Depression screening. Due on due Goal Tdap. Due on due Goal PRAPARE ASSESSMENT. Due on due Goal RLP. Due on due Goal PAP. Due on due Goal Lifestyle education regardin g diet completed Goal Tobacco cessation counseling completed Goal Depression screening. Due on due Goal Tdap Vaccine. Due on 2023 due Goal RLP. Due on due Goal Influenza vaccine. Due on due Goal Tdap. Due on due Goal PAP. Due on due Goal Hepatitis C screening. Due o n due Goal PRAPARE ASSESSMENT. Due on due Goal Unhealthy drug use screening . Due on due Goal Lifestyle education regardin g diet completed Goal Tobacco cessation counseling completed Goal Tdap. Due on due Goal Depression screening. Due on due Goal Unhealthy drug use screening . Due on due Goal RLP. Due on due Goal Hepatitis C screening. Due o n due Goal PRAPARE ASSESSMENT. Due on due Goal Tdap Vaccine. Due on 2023 due Goal Influenza vaccine. Due on due Goal RLP. Due on due Goal Unhealthy drug use screening . Due on due Goal Tdap Vaccine. Due on 2023 due Goal Tdap. Due on due Goal Influenza vaccine. Due on due Goal PRAPARE ASSESSMENT. Due on 4 due Goal Hepatitis C screening. Due o n due Goal Depression screening. Due on due Goal Dietary management education , guidance, and counseling completed Goal Hepatitis C screening. Due o n due Goal Tdap. Due on due Goal Depression screening. Due on due Goal Influenza vaccine. Due on due Goal PRAPARE ASSESSMENT. Due on due Goal RLP. Due on due Goal Tdap Vaccine. Due on 2022 due Goal Unhealthy drug use screening . Due on due Goal Unhealthy drug use screening . Due on due Goal Tdap Vaccine. Due on 2022 due Goal Depression screening. Due on due Goal Influenza vaccine. Due on due Goal Hep A. Due on du e Goal RLP. Due on due Goal Tdap. Due on due Goal Hepatitis C screening. Due o n due Goal PRAPARE ASSESSMENT. Due on due Goal Hepatitis C screening. Due o n due Goal Influenza vaccine. Due on due Goal PRAPARE ASSESSMENT. Due on N due Goal Tdap Vaccine. Due on 2022 due Goal Unhealthy drug use screening . Due on due Goal RLP. Due on due Goal Tdap. Due on due Goal Hep A. Due on du e Goal Depression screening. Due on due Goal Hep A. Due on du e Goal RLP. Due on due Goal PRAPARE ASSESSMENT. Due on O due Goal Hepatitis C screening. Due o n due Goal Tdap Vaccine. Due on 2022 due Goal Influenza vaccine. Due on Oc due Goal Tdap. Due on due Goal Depression screening. Due on due Goal Unhealthy drug use screening . Due on due Goal RLP. Due on due Goal Unhealthy drug use screening . Due on due Goal Hepatitis C screening. Due o n due Goal Tdap Vaccine. Due on 2022 due Goal Influenza vaccine. Due on Oc due Goal PRAPARE ASSESSMENT. Due on O due Goal Depression screening. Due on due Goal Tdap. Due on due Goal Tdap Vaccine. Due on 2022 due Goal Influenza vaccine. Due on Oc due Goal Unhealthy drug use screening . Due on due Goal Tdap. Due on due Goal Depression screening. Due on due Goal RLP. Due on due Goal PRAPARE ASSESSMENT. Due on O due Goal Hepatitis C screening. Due o n due Goal Hep A. Due on du e Goal RLP. Due on due Goal Tdap Vaccine. Due on 2022 due Goal Depression screening. Due on due Goal Tdap. Due on due Goal PRAPARE ASSESSMENT. Due on S ep due Goal Influenza vaccine. Due on Se p due Goal PRAPARE ASSESSMENT. Due on S ep due Goal Depression screening. Due on due Goal Tdap. Due on due Goal Tdap Vaccine. Due on 2022 due Goal Influenza vaccine. Due on Se due Goal RLP. Due on due History Of Present Illness Encounter Date Complaint History Of Prese nt Illness knee problem Pt is here for k nee numbness. She states that she started experiencing numbness in her left knee. The numbness radiates down and up the leg. She denies back pain and pain in her buttocks. This has been going on for a month and half. She denies numbness and pain in her foot. SUSI Garner Weight problem Pt is also c/o w eight issues. She states that she has changed her diet and started exercising but it's not helping. She wants to discuss starting medications. SUSI Garner migraine f/u Pt is here for f /u migraines. She states that she hasn't had a migraine since she started on the metoprolol. She states she will occasionally have a headache but nothing like she was having before. SUSI Garner annual exam The client state s using none for control. Last LMP was 11/15/2023. The client does not drink alcohol. Additional information: Patient is here for annual exam. States she did not have her first menses until age 20yr. 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 She had labs completed at [facility] and had a MRI of the brain at [facility]. She states when she was on OCPs she had a monthly menses that was slightly heavy, but the pill made her feel bad and angry, so she stopped taking them. She does desires medication to regulate menses. She is in a relationship, but they do not have sex often. They use withdrawal as she is allergic to Latex. . f/u labs Pt here for f/u labs. Pt denies issues or concerns. Pt has tried topamax, nurtec and naproxen in the past for migraines. She states they did not work. SUSI Garner est care Patient here to establish care with [facility] PCP. Patient used to go to [facility], just did not like their care anymore. Patient will get scheduled with [facility]. Patient is UTD on dental. Patient due for vision exam soon. Patient has concerns of migraines, has had them for years. Patient tried a dissoluble medication by [facility] that did not help. Sometimes Tylenol helps. Patient states they happen monthly that lasts about a week. Patient admits to tobacco use, monthly use. Denies any alcohol or drug use.//SUSI Stock lab draw Labs obtained Ri ght hand with butterfly needle. 2x2 and bandage applied. Patient tolerated well.//SUSI Stock fill Filling Continue with tr eatment [facility] Functional Status Date Functional Assessmen t No Information Instructions Date Instruction Additional Infor chary Discussed irregular menses in detail. Rx for Provera 10mg 1 PO daily for 10 days each month. Encouraged to keep menstrual calendar. Rx for provera was sent to pharmacy. RTC 3 months for follow up appt. Related to Irregular periods Encouraged good diet thelma intake, exercise and healthy lifestyle choices. Recommend daily multi-vitamin with Folic acid. Understands the need for non-violent partners in a consensual relationship. Patient does not desire a in the near future. Reviewed control options for prevention and she desires to use withdrawal or non latex condoms..Declines HIV, RPR and HEp C.Declines any vaccines offered in office today. 'Declines Hgb a1c'Medical release signed to get labs from [facility] and will attempt to get MRI off [facility] Related to Encounter for gynecological examination (general) (routine) without abnormal findings cervical cultures ob tained and sent to lab. Patient to call in 1 week for result. Stress importance of using condoms to prevent STDs in the future. Related to - STD screen Dietary needs education Related to Body mass index [BMI] 40.0-44.9, adult Giving encouragement to exercise Related to Body mass index [BMI] 40.0-44.9, adult Lifestyle education regarding di et Related to Body mass index [BMI] 40.0-44.9, adult Giving encouragement to exercise Related to Body mass index [BMI] 40.0-44.9, adult Lifestyle education regarding di et Related to Body mass index [BMI] 40.0-44.9, adult Giving encouragement to exercise Related to Body mass index [BMI] 40.0-44.9, adult Giving encouragement to exercise Related to Body mass index [BMI] 34.0-34.9, adult Dietary management e ducation, guidance, and counseling Related to Body mass index [BMI] 34.0-34.9, adult Assessments Type Assessment Date No Information Patient Care Teams Name Effective Dates (start - stop) Status Members No Information
[2025-03-28 05:35] VITALS: BP 143/83; PULSE 93; TEMP 36.7; O2SAT 97; BMI 40.7
--- OUTSIDE RECORDS SUMMARY | 2025-03-28 05:42 | XMS_ITS | Clinical Summary ---
Demographics Address [address] [place] [address] Home Phone Mobile Phone Email Address Email Address Preferred Language en Marital Status Unmarried Sabianism Affiliation Unknown Race White Ethnic Group Not or Lati no Author Organization [facility] Address [address] [place] [address] Care Team Providers Care Nuclear Medicine Officer Name Role Phone Filiberto Calhoun Primary Care Provider +1- [phone] Allergies Active AllergyReactionsCriticalityNoted MeaeHqgbhstzGuglbIokhe52/21/2022 Other Reaction(s): Unknown Mosquito (Diagnostic)2022 Other Reaction(s): Unknown Medications MedicationSigDispense QuantityRefillsLast FilledStart DateEnd DateStatus phentermine (Adipex-P) 37.5 MG tablet Take 37.5 mg by mouth in the morning. Take before meals.5Active norgestimate-ethinyl estradiol (Sprintec 28) 0.25-35 MG-MCG tablet Indications:PCOS (polycystic ovarian syndrome)Take 1 tablet by mouth Daily 28 tablet 12009/27/703457/6Active Active Problems ProblemNoted DateDiagnosed GiagCcggkmb41/21/2458Qazatsyq06/21/2024Obesity (BMI 30-39.9)10/19/2023urrent ogizui2110/19/2023 Overview (10/19/2023): Added secondary to documentation in Social History. Migraine epqgsrrs41/26/2024Seasonal wwpstbfcy00/26/2024hronic adenotonsillitis 2022Morbid (severe) obesity due to excess ymyigpzd32/23/2023 Resolved Problems ProblemNoted DateDiagnosed DateResolved DateBMI 35.0-35.9,adult06/25/2023 06/27/20234312Jlwovzdohq83/23/202301/2658Kkprcn97elayed female / Encounters DateTypeDepartmentCare VectTodsshppare33/20/2025bstract [facility] [address] [place] [address] Filiberto Calhoun, DO 01/03/2025bstract [facility] [address] [place] [address] Filiberto Calhoun, DO 01/02/2025bstract [facility] [address] [place] [address] Filiberto Calhoun, DO 01/01/2025Telephone [facility] [address] [place] [address] Kell Del Real RN from Last 3 Months Immunizations ImmunizationAdministration DatesNext DueDTaP, Ghffpkwxqat78/15/2008,06/04/2004, 05/08/2003,03/13/2003,01/16/2003Hep B, Adolescent or Kvoqtngmk51/29/2004HiB, pzjdlyoiyng74/05/2005,02/27/2004Hib / Hep B1,01/16/2003IPV09/13/2007, 06/04/2004,03/13/2003,01/16/2003Influenza, seasonal, injectable, preservative free03/15/2015,04/04/2014MMR09/13/2007,11/27/2003Meningococcal YXC4P9212/29/2019, 01/05/2015Pfizer Purple Cap SARS-CoV-2 Vxteyntpars57/25/2021,10/01/2020 Pneumococcal Conjugate PCV 7002/27/2004,05/08/2003,03/13/2003,01/16/2003Tdap 01/05/20155983Jdeskclxx05/15/2008,01/22/2004 Family History Medical HistoryRelationNameCommentsDiabetesFatherCory DavisHypertensionFather Osman DavisDiabetesMaternal GrandfatherStrokeMaternal GrandfatherAsthmaMaternal GrandmotherCindyDiabetesMaternal GrandmotherCindyHypertensionMaternal GrandmotherCindyDiabetesMotherCancerMother's SisterDiabetesPaternal Grandfather DiabetesPaternal GrandmotherRelationNameStatusCommentsBrother1 brotherFatherCory DavisAliveMaternal GrandfatherMaternal GrandmotherCindyMotherAliveMother's SisterAlivePaternal GrandfatherPaternal GrandmotherSister4 sisters Social History Tobacco UseTypesPacks/DayYears UsedDateSmoking Tobacco: NeverSmokeless Tobacco: Never Tobacco Cessation:Counseling Given: Not Answered Alcohol UseStandard Drinks/WeekCommentsNever0 (1 standard drink = 0.6 oz pure alcohol)caffeine: 2-3 cups per dayHumiliation, Afraid, Rape, and Kick questionnaireAnswerDate RecordedWithin the last year, have you been afraid of your partner or ex-partner?No11/19/2022Within the last year, have you been humiliated or emotionally abused in other ways by your partner or ex-partner?No 11/19/2022Within the last year, have you been kicked, hit, slapped, or otherwise physically hurt by your partner or ex-partner?No11/19/2022Within the last year, have you been raped or forced to have any kind of sexual activity by your part ner or ex-partner?No11/19/2022Social Connection and Isolation PanelAnswerDate RecordedIn a typical week, how many times do you talk on the phone with family, friends, or neighbors?Three times a week11/19/2022How often do you get together with friends or relatives?Once a week11/19/2022How often do you attend christian or buddhist services?Never11/19/2022o you belong to any clubs or organizations such as christian groups, unions, fraternal or athletic groups, or school groups?No 11/19/2022How often do you attend meetings of the clubs or organizations you belong to?Never11/19/2022re you , , , , never , or living with a partner?Living with qnaksyf6811/19/2022UDIT-CAnswerDate RecordedQ1: How often do you have a drink containing alcohol?Never11/19/2022Q2: How many drinks containing alcohol do you have on a typical day when you are drinking?Patient does not drink11/19/2022Q3: How often do you have six or more drinks on one occasion?Never11/19/2022Overall Financial Resource Strain (CARDIA) AnswerDate RecordedHow hard is it for you to pay for the very basics like food, housing, medical care, and heating?Somewhat hard11/19/2022HQ-2AnswerDate RecordedPatient Health Questionnaire-2 Zflac628Fin[facility] [place] of Occupational Health - Occupational Stress QuestionnaireAnswerDate RecordedDo you feel stress - tense, restless, nervous, or anxious, or unable to sleep at night because yourmind is troubled all the time - these days?To some izrdtf4911/19/2022 Exercise Vital SignAnswerDate RecordedOn average, how many days per week do you engage in moderate to strenuous exercise (like a brisk walk)?5 days11/19/2022On average, how many minutes do you engage in exercise at this level?50 min 11/19/2022Hunger Vital SignAnswerDate RecordedWithin the past 12 months, you worried that your food would run out before you got the money to buymore. Sometimes true11/19/2022Within the past 12 months, the food you bought just didn't last and you didn't have money to get more.Sometimes true11/19/2022 PRAPARE - TransportationAnswerDate RecordedIn the past 12 months, has lack of transportation kept you from medical appointments or from getting medications?No 11/19/2022In the past 12 months, has lack of transportation kept you from meetings, work, or from getting things needed for daily living?Yes11/19/2022 Housing Stability Vital SignAnswerDate RecordedIn the last 12 months, was there a time when you were not able to pay the mortgage or rent on time?No11/19/2022In the last 12 months, how many places have you lived?In the last 12 months, was there a time when you did not have a steady place to sleep or slept in ashelter (including now)?No3CommentsNoSex and Gender InformationValueDate RecordedSex Assigned at FqqvbZtqaqg75/15/2023 12:28 PM EDT Legal KacJyrggl43/15/2023 7:00 PM EDTGender CapyidumXgfplj59/15/2023 7:00 PM EDT Sexual RewprcsusivMwktlztrt80/15/2023 12:28 PM EDT Last Filed Vital Signs Vital SignReadingTime TakenCommentsBlood Lprqhmqh452/76010/19/2024 2:01 PM EDT Ixfjf118210/19/2023 12:22 PM DONGvrqerrbyta70.8 ??C (98.2 ??F)10/19/2023 12:22 PM EDTRespiratory Rate--Oxygen Byanmgmpsh22%10/19/2023 12:22 PM EDTInhaled Oxygen Concentration--Hfbvqk782 kg (258 lb)10/19/2024 2:01 PM KRIOmgrpv443.3 cm (5' 3.5 )10/19/2023 12:22 PM EDTBody Mass Index44.9910/19/2023 12:22 PM EDT Plan of Treatment Health MaintenanceDue DateLast DoneCommentsInfluenza Vaccine (#1)01/29/2025 03/15/2015, 04/04/2014 Insurance * Guarantor: Osman Cohen TypeRelation to PatientDate of BirthPhone Billing AddressPersonal/XdizygEpto08/23/2003 [address] [address] Care Teams Team MemberRelationshipSpecialtyStart DateEnd Date Filiberto Calhoun DO [address] [place] [address] [facility]
--- OUTSIDE RECORDS SUMMARY | 2025-03-28 05:42 | XMS_ITS | Clinical Summary ---
Author Organization [facility] Address [address] [place] [address], [address] [place] [address] Care Team Providers Care Work Force Advisor Name Role Phone Filiberto Calhoun DO Primary Care Provider +1- [phone] Allergies Active AllergyReactionsCriticalityNoted UnqiQquzvvteMezfiHrlgc59/21/2022 Medications No known medications Social History Tobacco UseTypesPacks/DayYears UsedDateSmoking Tobacco: NeverSmokeless Tobacco: Never Tobacco Cessation:Counseling Given: Not Answered Alcohol UseStandard Drinks/WeekCommentsNot Currently0 (1 standard drink = 0.6 oz pure alcohol)AUDIT-CAnswerDate RecordedQ1: How often do you have a drink containing alcohol?Never08/04/2022Q2: How many drinks containing alcohol do you have on a typical day when you are drinking?Patient does not drink08/04/2022Q3: How often do you have six or more drinks on one occasion?Never08/04/2022 CommentsNoSex and Gender InformationValueDate RecordedSex Assigned at BirthNot on fileLegal IbtSmaxlv90/21/2022 5:20 AM ESTGender IdentityNot on fileSexual OrientationNot on file Last Filed Vital Signs Vital SignReadingTime TakenCommentsBlood Ziurrofm82/55008/04/2022 10:45 AM EST Wxnow4862/07/2023 10:45 AM WYODtxvmiipdgk12.8 ??C (98.2 ??F)08/04/2022 8:43 AM ESTRespiratory Xtha372808/04/2022 10:45 AM ESTOxygen Njkijbrlzq07%08/04/2022 10:45 AM ESTInhaled Oxygen Concentration--Hbvnar50.8 kg (220 lb)08/04/2022 8:40 AM EST Tqbifk412.1 cm (5' 5 )08/04/2022 8:40 AM ESTBody Mass Index36.61008/04/2022 8:40 AM EST Plan of Treatment Health MaintenanceDue DateLast DoneCommentsDepression Fqplcn2211/20/2014Varicella vaccine (1 of 2 - 13+ 2-dose series)11/21/2015HIV jcizwy5511/20/2017HPV vaccine (1 - 3-dose series)2017Chlamydia/GC vvjfjs6511/20/2018Meningococcal B vaccine (1 of 2 - Standard)2018Hepatitis C ciyvce331DTaP/Tdap/Td vaccine (1 - Tdap)2021Hepatitis B vaccine (1 of 3 - 19+ 3-dose series)2Pap smear11/21/2023Flu vaccine (#1)12/29/2024OVID-19 Vaccine ( - season) 2025Hepatitis A vaccineAged OutNo longer eligible based on patient's age to complete this topicHib vaccineAged OutNo longer eligible based on patient's age to complete this topicMeningococcal (ACWY) vaccineAged OutNo longer eligible based on patient's age to complete this topicPneumococcal 0-49 years VaccineAged OutNo longer eligible based on patient's age to complete this topicPolio vaccine Aged OutNo longer eligible based on patient's age to complete this topic Insurance Care Teams Team MemberRelationshipSpecialtyStart DateEnd Date Filiberto Calhoun DO [address] [place] [address] PCP - GeneralFamily Atupfwhp52/21/22
--- OUTSIDE RECORDS SUMMARY | 2025-03-28 05:42 | XMS_ITS | CCD ---
Author Organization [facility] Care Team Providers Care [employer] Fire[employer] Name Role Phone Unavailable Primary Care Provider [...] Unavailable DO Minal Newman Primary Care Provider [phone] GRICELDA Platt Emergency Provider [phone] MINAL NEWMAN Primary Care Physician GRICELDA Beth Emergency Provider NONE, XXXX Primary Care Physician Unavailab le Toya Platt Attending Unavailable Minal Newman Primary Care Unavailable Toya Platt Admitting Unavailable Ignacia, Teja Admitting Unavailable Nikolay Bethothy Attending Unavailable Minal Newman Primary Care Unavailable Ignacia, Teja Admitting Unavailable Nikolay Bethothy Attending Unavailable Minal Newman Primary Care Unavailable Rosalee Mcleod Unavailable Minal Newman DO Primary Care Provider [phone] Minal Newman DO Unavailable [phone] Troy Treadwell Attending Unavailable DO Deana Mohan [...] Fay Cheney Attending Unav ailable Allergies Allergy ClassificationReported Allergen(s)Allergy TypeDate of OnsetReaction(s) Facility (17 sources)Latex; Translations: [Latex]Drug Wjbdoyr78-43-0898Thstqgy, Swelling [facility] (1 source)LatexDrug allergy (disorder)27-25-9984OwjmrkrzeWilson [facility] (1 source)Latex rubber glovesDrug allergyUnkFreeman [facility]os[facility] Hospital FRESS Other (2 sources)mosquitoPropensity to adverse xuydpeiul29-93-7446EyrzmqrbFdzymvkiuGerman Hospital (6 sources)LatexAllergy to phkyiyyys53-86-0986ZqltqZMC[facility] (6 sources)Mosquito (Diagnostic)Drug Brfpcqg47-01-0180GWW[facility] (1 source)nutellaAllergy to tefdsupoz91-25-0597Zpvrzc itchy and swelling [facility] Medications Current Medications MedicationDrug Class(es)DatesSig (Normalized)Sig (Original)amoxicillin 875 mg oral tablet (1 source)Penicillin-class AntibacterialStart: 11-29-2022 End: 23-50-1119ydlh 1 tablet by mouth twice dailyamoxicillin 875 mg Tab 875 mg = 1 tab(s), Oral, BID, X 10 day(s), # 20 tab(s), Refills(s) 0, Pharmacy: [facility] [id number], 164, cm, 11/29/22 9:25:00 EDT, Height/Length Dosing, 97.8, kg, 11/29/22 9:25:00 EDT, Weight Dosing Start Date: 11/29/22 Stop Date: 12/09/22 Status: Orderedamoxicillin 875 mg / clavulanate 125 mg oral tablet (1 source)Penicillin-class AntibacterialStart: 24-75-6917kidf 1 tablet by mouth every twelve hoursAmoxicillin-Pot Clavulanate 875-125 MG 1 tablet Orally every 12 hrs for 10 day(s) May, ActiveApple Cider Vinegar (1 source)Start: 86-68-6676khxxi cider vinegar Active PO Daily September 20, 2024 12:00amBiotin (1 source)Start: 37-10-7873prkspm (Hair, Skin and Nails (biotin)) Active PO Daily September 20, 2024 12:00amcefpodoxime 200 mg oral tablet (1 source)Cephalosporin AntibacterialStart: 06-23-2023 End: 43-94-8246pqsv 1 tablet by mouth every twelve hourscefpodoxime 200 mg Tab 200 mg = 1 tab(s), Oral, q12hr, X 10 day(s), # 20 tab(s), Refills(s) 0, [id number], 164, cm, 06/22/23 20:52:00 EST, Height/Length Dosing, 95.7, kg, 06/22/2419:52:00 EST, Weight Dosing Start Date: 06/23/23 Stop Date: 07/03/23 Status: Orderedcephalexin 500 mg oral capsule (2 sources)Cephalosporin AntibacterialStart: 11-25-2024 End: 89-69-3588iykb 1 capsule by mouth every six hoursKeflex 500 mg Cap 500 mg = 1 cap(s), Oral, q6hr, X 7 day(s), # 28 cap(s), Refills(s) 0, Pharmacy: [facility], 160, cm, 11/25/24 16:07:00 EDT, Height/Length Dosing, 110, kg, 11/25/24 16:07:00 EDT, Weight Dosing Start Date: 11/25/24 Stop Date: 12/02/24 Status: Ordered Quantity: 28.0 Unit: cap(s) Repeat number: 1Start: 11-14-2022 End: 97-33-5953vbbl 1 capsule by mouth every six hoursKeflex 500 mg Cap 500 mg = 1 cap(s), Oral, q6hr, X 7 day(s), # 28 cap(s), Refills(s) 0 Start Date: 11/14/22 Stop Date: 11/21/22 Status: Ordereddextromethorphan hydrobromide 15 mg / guaiFENesin 400 mg / pseudoephedrine hydrochloride 60 mg oraltablet (1 source)alpha-Adrenergic Agonist, Uncompetitive U-qgjdcs-V-aspartate Receptor Antagonist, Sigma-1 AgonistStart: 72-20-8335nfyn 4 tablets by mouth every twenty-four hours as neededCapmist DM 60-15-400 MG as needed Orally every 4-6 hours as needed, max 4 tablets in 24 hours for 5days May, Activeethinyl estradiol 0.035 mg / norgestimate 0.25 mg oral tablet (4 sources)Progestin, EstrogenStart: 09-27-2024 End: 21-29-7138hwpl 1 tablet by mouth once dailynorgestimate-ethinyl estradiol (Sprintec 28) 0.25-35 MG-MCG tablet Indications: PCOS (polycystic ovarian syndrome) Take 1 tablet by mouth Daily 28 tablet 12 09/27/2024 09/27/2025 Active methylPREDNISolone 4 mg oral tablet (1 source)CorticosteroidStart: 58-55-9743unovbeXBHMNPAyldvd 4 MG as directed Orally daily dose take half with breakfast half with dinner for6 May, Activenaproxen 500 mg oral tablet (17 sources)Nonsteroidal Anti-inflammatory DrugStart: 10-22-2022 End: 38-39-2168mhefsfwh (Naprosyn) 500 MG tabletoxymetazoline hydrochloride 0.5 mg/ml nasal spray (4 sources)Start: 78-85-0812Uqx-Synephrine 12 Hour Extra Moisturizing 0.05% nasal spray 2 spray(s), Nasal, BID, 15 mL, Refill(s) 0, [facility] [id number], 164, cm, 01/16/23 15:42:00 EDT, Height/Length Dosing, 97.8, kg, 15:42:00 EDT, Weight Dosing Start Date: 01/16/23 Status: Ordered phenazopyridine hydrochloride 100 mg oral tablet (2 sources)Start: 11-25-2024 End: 67-80-5300plaw 1 tablet by mouth three times dailyPyridium 100 mg Tab 100 mg = 1 tab(s), Oral, TID, X 3 day(s), # 9 tab(s), Refills(s) 0, Pharmacy: [facility], 160, cm, 11/25/24 16:07:00 EDT, Height/Length Dosing, 110, kg, 11/25/24 16:07:00 EDT, Weight Dosing Start Date: 11/25/24 Stop Date: 11/28/24 Status: Ordered Quantity: 9.0 Unit: tab(s) Repeat number: 1Start: 11-14-2022 End: 62-15-9688ioby 1 tablet by mouth three times dailyPyridium 200 mg Tab 200 mg = 1 tab(s), Oral, TID, X 2 day(s), # 6 tab(s), Refills(s) 0 Start Date: Stop Date: 11/16/22 Status: Orderedphentermine hydrochloride 37.5 mg oral tablet (5 sources)Sympathomimetic Amine AnorecticStart: 61-49-7102jzni 1 tablet by mouth before mealtimephentermine (Adipex-P) 37.5 MG tablet Take 37.5 mg by mouth in the morning. Take before meals. 09/20/2024 ActiveStart: 95-83-6928sqwm 0.5 tablet by mouth once daily in the morningPhentermine 37.5 mg tablet Active 37.5 MG PO Daily September 20, 2024 12:00am Take early AM to avoid insomnia. Take half tab days 1-7.predniSONE 20 mg oral tablet (1 source)Start: 08-10-2023 End: 72-82-0760dqap 2 tablets by mouth once dailypredniSONE 20 mg Tab 40 mg = 2 tab(s), Oral, Daily, X 4 day(s), # 8 tab(s), Refills(s) 0, Pharmacy:[facility], 165, cm, 08/10/23 23:00:00 EDT, Height/Length Dosing, 103.6, kg, 08/10/23 23:00:00 EDT, Weight Dosing Start Date: 08/10/23 Stop Date: 08/14/23 Status: Orderedprochlorperazine 10 mg oral tablet (1 source)PhenothiazineStart: 11-09-2022 End: 97-43-3600mwwu 1 tablet by mouth three times dailyCompazine 10 mg oral tablet = 1 tab(s), Oral, TID, X 7 day(s), # 21 tab(s), Refills(s) 0 Start Date: 11/09/22 Stop Date: 11/16/22 Status: Ordered Completed/Discontinued Medications MedicationDrug Class(es)DatesSig (Normalized)Sig (Original)[id number] 200 actuat albuterol 0.09 mg/actuat metered dose inhaler (2 sources)beta2-Adrenergic AgonistStart: 09-10-2023 End: 45-68-8015kuol 2 puff(s) by inhalation every six hours for wheezing albuterol HFA (Ventolin HFA) 90 mcg/act inhaler Indications: Mild intermittent reactive airway disease without complication (CMS/HCC) Inhale 2 puffs every 6 (six) hours if needed for wheezing or shortness of breath 1 g 3 09/10/2023 09/27/2024 Discontinued (Side effects)Brompheniramine / Pseudoephedrine (1 source)alpha-Adrenergic Agonisttake 10 mL by mouth every four hours as needed Bromfed DM 30-2-10 MG/5ML 10 ml as needed Orally every 4 hrs Not-Taking/PRN Ethinyl Estradiol / Ferrous fumarate / Norethindrone (7 sources)EstrogenStart: 09-13-2023 End: 02-63-7033nyqjefkqwojjv-ethinyl estradiol (Blisovi FE 06/19) 1-20 MG-MCG tablet Indications: Encounter for surveillance of contraceptive pills Take 1 tablet by mouth Daily 84 tablet 1 09/13/2023 09/27/2024 Discontinued (Side effects)Start: 13-69-9127wuob 1 tablet by mouth once dailyBlisovi FE 06/19 1-20 MG-MCG tablet Indications: Encounter for surveillance of contraceptive pills EDGARDO VO ONE TABLET BY MOUTH DAILY 84 tablet 1 12/21/2022 ActiveStart: 03-05-2022 End: 53-43-7554Eryjcwdzakbtc-E.Estradiol-Iron (Blisovi Fe 06/19 (28)) 1 mg-20 mcg (21)/75 mg (7) tablet Discontinued 1 TAB PO Daily March 05, 2022 12:00am May 26, 2024 5:11pmStart: 27-48-0966Uwznqvrgkowwy-E.Estradiol-Iron (Blisovi Fe 06/19 (28)) 1 mg-20 mcg (21)/75 mg (7) tablet Active 1 TAB PO Daily March 05, 2022 12:00amfluticasone propionate 0.05 mg/actuat metered dose nasal spray (2 sources)CorticosteroidStart: 05-26-2024 End: 07-80-0782maok 1 spray(s) nasal route once dailyFluticasone Propionate (Flonase Allergy Relief) 50 mcg/actuation spray,suspension Discontinued 1 SPRAY INTRANASAL Daily May 26, 2024 1:00am September 20, 2024 1:47pm administer into each nostrilStart: 40-80-2085edhx 1 spray(s) nasal route once daily as neededFlonase Allergy Relief 50 MCG/ACT 1 spray in each nostril Nasally Once a day for 30 day(s) Nov, Not-Taking/PRNloratadine 10 mg oral tablet (1 source)Start: 05-26-2024 End: 78-84-6290qtxu 1 tablet by mouth once dailyLoratadine (Claritin) 10 mg tablet Discontinued 10 MG PO daily 12 04May 26, 2024 1:00am 2024 1:47pm24 hr loratadine 10 mg / pseudoephedrine sulfate 240 mg extended release oral tablet (1 source)alpha-Adrenergic AgonistStart: 40-20-9256twyi 1 tablet by mouth every twenty-four hoursClaritin-D 24 Hour 10-240 MG 1 tablet as needed Orally Once a day for 30 day(s) Nov, Not-Taking/PRNmontelukast 10 mg oral tablet (2 sources)Leukotriene Receptor AntagonistStart: 09-10-2023 End: 49-29-9070yqkw 1 tablet by mouth at bedtimemontelukast (Singulair) 10 MG tablet Indications: Mild intermittent reactive airway disease without complication (CMS/HCC) Take 1 tablet (10 mg) by mouth at bedtime 90 tablet 09/10/2023 09/27/2024 Discontinued (Therapy completed)2 ml penicillin g benzathine [id number] unt/ml / penicillin g procaine 466312 unt/ml prefilled syringe (1 source)Penicillin-class AntibacterialBicillin C-R [id number] UNIT/2ML 2 ml Intramuscular Not-Taking/PRNpromethazine hydrochloride 25 mg oral tablet (1 source)PhenothiazineStart: 03-19-2023 End: 58-78-5916xhss 1 tablet by mouth three times daily as needed for nausea and vomitingPromethazine 25 mg tablet Discontinued 25 MG PO Three times daily as needed for nausea and March 19, 2023 12:00am May 26, 2024 5:11pmsulfamethoxazole 800 mg / trimethoprim 160 mg oral tablet (2 sources)Dihydrofolate Reductase Inhibitor Antibacterial, Sulfonamide AntimicrobialStart: 12-19-2022 End: 46-72-8149iuzt 1 tablet by mouth twice dailySulfamethoxazole-Trimethoprim (Bactrim Ds) 800-160 mg tablet Discontinued 1 TAB PO Twice daily December 19, 2022 12:00am March 19, 2023 9:55am Problems Active Problems Problem ClassificationProblemDateDocumented DateEpisodic/ChronicAbdominal pain (1 source)Abdominal pain; Translations: [Unspecified abdominal pain]Onset: 63-64-5646CutzdlurVqszj and chronic tonsillitis (6 sources)Chronic adenotonsillitis; Translations: [Chronic tonsillitis and adenoiditis]Onset: 232481-30-8606UmzdzoeIlrooira mellitus without complication (2 sources)Prediabetes; Translations: [Prediabetes]99-79-0179Blrlgmay Genitourinary symptoms and ill-defined conditions (4 sources)Dysuria; Translations: [DYSURIA]Onset: 19-52-3643BwzvrglnIbbzltgo; including migraine (20 sources)Migraine, unspecified, not intractable, without status migrainosus; Translations: [Migraine]Onset: 33-62-3184TpjobjiFggkxcl on above:Problem List clean-up per request of Phys. LU CmteHeadache; including migraine (1 source)Headache; Translations: [Headache, unspecified]Onset: 01-29-2023 EpisodicHeadache; including migraine (4 sources)Headache; including migraine; Translations: [HEADACHE UNSPECIFIED] Onset: 92-38-2312Ujoacqoonoo chest pain (4 sources)Chest pain, unspecified; Translations: [Chest pain]Onset: 07-13-2022 EpisodicOther bone disease and musculoskeletal deformities (1 source)Chondrocostal junction syndrome [Tietze]; Translations: [CHONDROCOSTAL JUNCTION SYND TIETZE]Onset: 19-51-0585HiqasydzLopox congenital anomalies (1 source)Congenital anomaly of pituitary gland; 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]ChronicOther endocrine disorders (4 sources)Polycystic ovary syndrome; Translations: [Polycystic ovarian syndrome]53-50-5990HtxxwxrDjhre lower respiratory disease (1 source)Pleurodynia; 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]Onset: 01-54-7599PfbukfymVmfki nutritional; endocrine; and metabolic disorders (15 sources)Body mass index 30+ - obesity; Translations: [Body mass index (BMI) 35.0-35.9, adult]Onset: 06-25-2023 Resolved: 574066-30-5121TiusyipDijfw nutritional; endocrine; and metabolic disorders (6 sources)Obesity caused by energy imbalance; Translations: [Morbid (severe) obesity due to excess calories]Onset: 640196-44-4336YfnwqinInxdu nutritional; endocrine; and metabolic disorders (1 source)Body mass index 40+ - severely obese; Translations: [Morbid (severe) obesity due to excess calories]55-89-0094FwwoicrLyfjr nutritional; endocrine; and metabolic disorders (1 source)Morbid (severe) obesity due to excess calories; Translations: [Morbid obesity]74-41-0096MzdousnBrwzu screening for suspected conditions (not mental disorders or infectious disease) (4 sources)Patient encounter status; Translations: [Encounter for screening for malignant neoplasm of cervix]57-90-1923ZlhbgdmbPtrrn upper respiratory disease (6 sources)Seasonal allergy; Translations: [Other seasonal allergic rhinitis] Onset: 120399-19-2963NznaulsKpwlc upper respiratory disease (1 source)Bleeding from nose; Translations: [Epistaxis]Onset: 13-09-0677Gtqbkjog Other upper respiratory infections (9 sources)Acute upper respiratory infection, unspecified; Translations: [Acute pharyngitis]Onset: 86-21-0941NszygeshIokladjtp-related disorders (8 sources)Smoker; Translations: [Nicotine dependence, unspecified, uncomplicated]Onset: 973408-63-1226ZuwcpbkZgilofb on above:Added secondary to documentation in Social History.Superficial injury; contusion (1 source)Contusion of right foot; Translations: [Contusion of right foot, initial encounter]Onset: 93-59-1987HckxfxhgCsrcyem tract infections (4 sources)Urinary tract infection, site not specified; Translations: [Urinary tract infectious disease]Onset: 74-40-8190Rpwzrpzj Past or Other Problems Problem ClassificationProblemDateDocumented DateEpisodic/ChronicMenstrual disorders (6 sources)Amenorrhea; Translations: [Amenorrhea, unspecified]Onset: 2022 Resolved: 833746-47-1758XzrucceEqgtq endocrine disorders (6 sources)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; 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]Onset: 2022 Resolved: 890040-03-1718CgosxroBtevx hereditary and degenerative nervous system conditions (6 sources)Chorea; 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]Onset: 2022 Resolved: 465646-52-6909QiycnauTxzu and subcutaneous tissue infections (7 sources)Abscess; Translations: [Cutaneous abscess, unspecified]Onset: 925722-65-0858Xnyjxoma Results Test NameValueInterpretationReference RangeFacilityED Clinical Summaryon 23-25-7240VB Clinical SummaryED Clinical Summary [address] [address] ED Clinical Summary Person Information Name: OSMAN COHEN Ramu Ramirez/[facility] Age: 24 Years : 2000 Sex: Female Language: Dominican PCP: MINAL NEWMAN DO Marital Status: Single [...] 01/03/2025 02:22:30 01/03/2025 02:22:30 ADDRESS: [place] [id number] PHYS DOC NOTES: MEDICAL INFORMATION: Prescriptions Given: New Medications [facility], [address] [place], [place] [id number], [phone] APAP/butalbital/caffeine (Fioricet oral capsule) 1 Capsules By Mouth [...] DO [address], [address] [place] [address] In 3 days 01/05/2025 DIAGNOSIS: 1:MigraineNormalFisher Victoria Medical CenterED Note-Physicianon 18-98-9424ID Note-PhysicianED Note-Physician Basic Information Time Seen: Fay Cheney [...] normal pattern. She stated that it was gradualin onset began at 6 AM after she [...] migraine headache was 3-1/2 months ago and shehad to come to the emergency department. Since then she has been managing well. She is not on any pr ophylactic medication. She does not have any specific [...] hands were washed with hospital supplied hand laboratory secretary and then nonlatex gloves were applied. I obtained permission from the patient to examine them. General: Patient is alert and oriented to person place and time. They are able to provide their ownhistory. Patient appears to be nontoxic although in [...] hernias. Normal bowel sounds. No fluid wave. Noabdominal tenderness. Extremities: Patient moves all 4 extremities [...] worse. Nothing makes it better. She tried Tylenol3 g at home and it has not helped with her headache. Her last migraine headache was 3-1/2 months ago and she had to come to the emergency department. Since then she has been managing well. She is noton any prophylactic medication. She does not have [...] all of the laboratories and images that wereperformed and I even went through why we did not do testi (more content not included)...[facility] Comment on above:Result Comment: Electronically Signed By: Fay Cheney D.O.\Date and Time Signed: 01/03/25 02:01 EDTED Patient Summaryon [id number] Patient SummaryED Patient Summary [address] [address] Patient Discharge Instructions Person Information Name: OSMAN COHEN Age: 24 Years Arrival Date: 01/02/2025 22:50:58 Discharge Diagnosis: 1:Migraine Primary Care Physician: MINAL NEWMAN DO Provider Information Primary Provider: Fay Cheney D.O. Advanced Product Line Manager:None The exam and treatment you received in the Emergency Department were for an urgent problem and are not intended as complete care. It is important that you follow up with a doctor, nurse practitioner,or physician???s medication assistant for ongoing care. If your symptoms become worse or you do not improve asexpected and you are unable to reach your usual health care provider, you should return to the Emergency Department. We are available 24 hours a day. OSMAN COHEN has been given the following list of patient education materials, prescriptions and follow-up instructions: Follow-up Instructions: With: Address: When: MINAL NEWMAN DO [address], [address] [address] In 3 days 01/05/2025 In the event that this physician does not participate in your insurance network, please consult with your insurance company to find a nearby participating provider. Patient Education Materials: Migraine Headache A MESSAGE TO ALL PATIENTS REGARDING OPIOIDS PRESCRIPTION OPIOIDS: WHAT YOU NEED TO KNOW Prescription opioids can be used to help relieve ofggvixh-br-yqmant pain and are often prescribed following a [...] for the same pain relief ??? Physical dependence???meaning you have symptoms of withdrawal when a [...] guidance from the Food and Drug Administration (www.fda.gov/Drugs/ResourcesForYou). ??? Visit www.cdc.gov/drugoverdose to learn about the risks of opioids abuse and overdose. ??? If you believe you may be struggling with addiction, tell your health child care nurse and askfor guidance or baljinder (more content not included)...Normal [facility] [place] [facility] HospitalBMPon 47-63-6539Eufqk gap [Moles/Vol]13 mmol/LNormal 6-16[facility] [place] [facility] HospitalComment on above:Performed By: #### [id number] #### [facility] [address], [place] [address]OLS/Creat Ratio14 No CufeaRrhgkl47-78AksaevEast [place] Regional HospitalComment on above:Performed By: #### [id number] #### [facility] [address], [place] [address]Rdmxvmj [Mass/Vol]9.2 mg/dLNormal8.9-11.1FGrant HospitalComment on above:Performed By: #### [id number] #### [facility] [address], [place] [address]Spywaqhe [Moles/Vol]105 mmol/WWvqxpo643-715FwvtqsEast [place] Regional HospitalComment on above:Performed By: #### [id number] #### [facility] [address], [place] [address]SO5 [Moles/Vol]24 mmol/PBskacg22-35YqpznpEast [place] Regional Hospital Comment on above:Performed By: #### [id number] #### [facility] [address], [place] [address]Onvpxlawfo [Mass/Vol]0.7 mg/dLNormal0.5-1.3FGrant HospitalComment on above:Performed By: #### [id number] #### [facility] [address], [place] [address]Aespifz [Mass/Vol]118 mg/dITlvciv79-905MfqtwoEast [place] Regional HospitalComment on above:Performed By: #### [id number] #### [facility] [address], [place] [address]Bmvfjuvvq [Moles/Vol]3.7 mmol/LNormal3.5-5.3FGrant HospitalComment on above:Performed By: #### [id number] #### [facility] [address], [place] [address]Jdhuon [Moles/Vol]138 mmol/XOjqxte881-734EflyodEast [place] Regional HospitalComment on above:Performed By: #### [id number] #### [facility] [address], [place] [address]Hbny nitrogen [Mass/Vol]10 mg/dLNormal5-21[facility] [place] [facility] HospitalComment on above:Performed By: #### [id number] #### [facility] [address] [place] [address]DYW w/ Auto Diffon 05-32-8036Dzwpxzgw Absolute0.0 E9/LNormal 0.0-0.2FGrant HospitalComment on above:Performed By: #### [id number] #### [facility] [address] [place] [address]Cnntpqkkn/100 WBC (Bld)0.5 %Normal0.0-2.0[facility] [place] [facility] HospitalComment on above:Performed By: #### [id number] #### [facility] [address] [place] [address]Cbs Absolute0.1 E9/LNormal0.0-0.5FGrant Hospital Comment on above:Performed By: #### [id number] #### [facility] [address], [place] [address]Alklczbpphc/100 WBC (Bld)1.5 %Normal0.0-8.0[facility] [place] [facility] HospitalComment on above:Performed By: #### [id number] #### [facility] [address] [place] [address]Wdgdlkzajyt distribution width (RBC) [Ratio]13.2 %Normal 10.9-14.2FGrant HospitalComment on above:Performed By: #### [id number] #### [facility] [address], [place] [address]Iibwhqusku (Bld) [Volume fraction]40.6 %Bieuwp86.0-46.0[facility] [place] [facility] HospitalComment on above:Performed By: #### [id number] #### [facility] [address], [place] [address]Mgoziftapc (Bld) [Mass/Vol]13.7 g/bYDwkzoz45.0-16.0[facility] [place] [facility] HospitalComment on above:Performed By: #### [id number] #### [facility] [address], [place] [address]Ocken Absolute2.5 E9/LNormal1.0-4.0[facility] Comment on above:Performed By: #### [id number] #### [facility] [address] [place] [address]Rtjizhhcgmw/100 WBC (Bld)34.6 %Cxiysy49.0-50.0[facility] [place] [facility] HospitalComment on above:Performed By: #### [id number] #### [facility] [address], [place] [address]YKC (RBC) [Entitic mass]25.4 pgLow27.0-34.0[facility] [place] [facility] HospitalComment on above:Performed By: #### [id number] #### [facility] [address], [place] [address]TXFS (RBC) [Mass/Vol]33.8 g/kZXxbcoy00.4-36.0[facility] [place] [facility] HospitalComment on above:Performed By: #### [id number] #### [facility] [address], [place] [address]WLM (RBC) [Entitic vol]75.1 fLLow80.0-100.0[facility] [place] [facility] HospitalComment on above:Performed By: #### [id number] #### [facility] [address], [place] [address]Blvv Absolute0.6 E9/LNormal0.2-1.0[facility] Comment on above:Performed By: #### [id number] #### [facility] [address], [place] [address]Cgtjanren/100 WBC (Bld)7.6 %Normal4.0-14.0[facility] [place] [facility] HospitalComment on above:Performed By: #### [id number] #### [facility] [address], [place] [address]Moeolt Absolute4.1 E9/LNormal2.0-7.5FGrant Hospital Comment on above:Performed By: #### [id number] #### [facility] [address], [place] [address]Phnwqn Auto55.8 %Fjaxia01.0-75.0[facility] [place] [facility] [facility] Comment on above:Performed By: #### [id number] #### [facility] [address] [place] [address] 08446Lntewxid071.0 E9/PQeuqgv815.0-500.0[facility] Comment on above:Performed By: #### [id number] #### [facility] [address] [place] [address] 09516Ssecjjak mean volume (Bld) [Entitic vol]6.4 fLNormal6.4-10.8 [facility] HospitalComment on above:Performed By: #### [id number] #### [facility] [address], [place] [address]KMD6.4 E12/LNormal4.3-5.9[facility] HospitalComment on above:Performed By: #### [id number] #### [facility] [address] [place] [address] 92089MKR9.3 E9/LNormal4.0-11.0[facility] HospitalComment on above:Performed By: #### [id number] #### [facility] [address] [place] [address] 58952BX Clinical Summaryon [id number] Clinical SummaryED Clinical Summary [address] [address] ED Clinical Summary Person Information Name: OSMAN COHEN/New_Jean-Paul Age: 24 Years : 2000 Sex: Female Language: Dominican PCP: MINAL NEWMAN DO Marital Status: Single [...] 01/01/2025 10:12:40 01/01/2025 10:12:40 01/01/2025 10:12:40 ADDRESS: [facility] [place] [facility] [id number] PHYS DOC NOTES: MEDICAL INFORMATION: Prescriptions Given: New Medications [facility], [address] [place], [place] [id number], [phone] dicyclomine (Bentyl 10 mg Cap) 2 Capsules By Mouth 4 times a day. Refills: 0. pantoprazole (Pantoprazole [address] Tab) 1 Tablets By Mouth every day. Refills: 0. PATIENT EDUCATION INFORMATION: Instructions: Sore Throat; Abdominal Pain, Adult Follow up: With: Address: When: MINAL NEWMAN [address], [address] [address] Business (1) In 3 days 01/04/2025 Comments: Return to the emergency room if your abdominal pain gets worse, vomiting, fever, sore throat gets worse, unable to swallow or any new symptoms. DIAGNOSIS: 1:Abdominal pain; 2:Sore throatChary Green Medical CenterED Note-Physicianon [id number] Note-PhysicianED Note-Physician Basic Information Time Seen: Tim Knight [...] states for past 3 days she has beenhaving sore throat and her tonsils are swollen. [...] and Complexity of Problems Differential Diagnosis: [] [facility] Data External documents reviewed: [] My EKG interpretation: [] My CT interpretation: [] My X-ray interpretation: [] My Ultrasound interpretation: [] Decision rules/scores evaluated: [] Discussed with: [] Treatment and Disposition ED Course: The patient presented with abdominal pain sore throat. Unclear etiology of her symptoms.Possible viral. Her abdomen is benign. Does not appear to be surgical. Blood work reviewed. White count is normal. Liver enzymes are normal. Lipase is normal. The urine shows no infection. is negative. Rapid strep is negative. [place] is negative. The patient was given GI [...] (J02.9: Acute pharyngitis, unspecified) Orders: Al hydroxide/Mg hydroxide/simethicone, 30 mL, Susp-Oral, Oral, Once, Stop date 01/01/25 8:56:00 EDT, STAT, Start date 01/01/25 8:56:00 EDT atropine/hyoscyamine/PB/scopolamine, 10 mL, Elixir, Oral, Once, Stop date 01/01/25 8:56:00 EDT, STAT, Start date 01/01/25 8:56:00 EDT dicyclomine, 20 mg = 2 cap(s), Oral, QID, # 20 cap(s), Refills(s) 0, Pharmacy: [facility], 160, cm, 01/01/25 7:36:00 EDT, Height/Length Dosing, 112.4, kg, 01/01/25 7:36:00 EDT, Weight Dosing lidocaine topical, 200 mg, 10 mL, Soln-Oral, Oral, Once, Stop date 01/01/25 8:56:00 EDT, STAT, Start date 01/01/25 8:56:00 EDT pantoprazole, 40 mg = 1 tab(s), Oral, Daily, # 30 tab(s), Refills(s) 0, Pharmacy: [facility] 1985, 160, cm, 01/01/25 7:36:00 EDT, Height/Length Dosing, 112.4, kg, 01/01/25 7:36:00 EDT, Weight Dosing Basic Metabolic Panel CBC w/ Auto Diff eGFR Group A Strep by PCR Hepatic Function Panel Lipase Level Mononucleosis Screen Rapid Strep w/rfx U Beta Hcg Qual UA with Cult Rflx Medications Administered Given Al hydroxide/Mg hydroxide/simethicone 200 mg-200 mg-20 mg/5 mL oral suspension, [...] Contact Information MINAL NEWMAN In 3 days 01/04/[address], [facility] [address] [phone]- Business (1) Additional Instructions: Return to the emergency room if your abdominal pain gets worse, vomiting (more content not included)...[facility] CenterComment on above:Result Comment: Electronically Signed By: Tim Knight M.D.\.laura\Date and Time Signed: 01/01/2510:11 EDTED Patient Summaryon [id number] Patient SummaryED Patient Summary [place] [id number] Patient Discharge Instructions Person Information Name: OSMAN COHEN Age: 24 Years Arrival Date: 01/01/2025 07:16:18 Discharge Diagnosis: 1:Abdominal pain; 2:Sore throat Primary Care Physician: MINAL NEWMAN DO Provider Information Primary Provider: Tim Knight M.D. Advanced Product Line Manager:None The exam and treatment you received in the Emergency Department were for an urgent problem and are not intended as complete care. It is important that you follow up with a doctor, nurse practitioner,or physician???s medication assistant for ongoing care. If your symptoms become worse or you do not improve asexpected and you are unable to reach your usual health care provider, you should return to the Emergency Department. We are available 24 hours a day. OSMAN COHEN has been given the following list of patient education materials, prescriptions and follow-up instructions: Follow-up Instructions: With: Address: When: MINAL NEWMAN [address], [address] [place] [address] Business (1) In 3 days 01/04/2025 Comments: [...] opioids can be used to help relieve gzeckjap-uf-hpcriu pain and are often prescribed following a [...] for the same pain relief ??? Physical dependence???meaning you have symptoms of withdrawal when a [...] guidance from the Food and Drug Administration (www.fda.gov/Drugs/ResourcesForYou). ??? Visit www.cdc (more content not included)...[facility] Medical CenterGrp A Strp PCRon 51-09-6352Nbsig A StrepNegativeNormalNegativeEast [facility] Regional HospitalComment on above:Order Comment: Order Added on by Discern Rule. Result Comment: Testing performed using DNA amplification.Performed By: #### [id number] #### [facility] [address], [place] [address]Jll A Strp Intrl CtrlPassNormalEast [facility] Comment on above:Order Comment: Order Added on by Discern Rule.Performed By: #### [id number] #### [facility] [address], [place] [address]Oog Func Panelon 29-90-9182Ggeuune [Mass/Vol]4.1 g/dLNormal 3.3-5.0[facility] HospitalComment on above:Performed By: #### [id number] #### [facility] [address], [place] [address]Lirctem/Globulin [Mass ratio]1.4 {ratio}Normal1.1-2.2FGrant HospitalComment on above:Performed By: #### [id number] #### [facility] [address], [place] [address]Vgl Phos81 Int._Unit/YEqajnv80-41AwomhqEast [facility] Hospital Comment on above:Performed By: #### [id number] #### [facility] [address], [place] [address]KXG67 Int._Unit/LNormal6-46[facility] HospitalComment on above:Performed By: #### [id number] #### [facility] [address], [place] [address]WGA25 Int._Unit/LNormal5-43[facility] HospitalComment on above:Performed By: #### [id number] #### [facility] [address], [place] [address]Tzkb Direct0.1 mg/dLNormal0.0-0.4FGrant Hospital Comment on above:Performed By: #### [id number] #### [facility] [address], [place] [address]Skux Indirect0.2 mg/dLNormal0.1-0.9[facility] Comment on above:Performed By: #### [id number] #### [facility] [address], [place] [address]Xybw Total0.3 mg/dLNormal0.0-1.1FGrant Hospital Comment on above:Performed By: #### [id number] #### [facility] [address], [place] [address]Cioclkbp (S) [Mass/Vol]3.0 g/dLNormal1.4-4.0[facility] HospitalComment on above:Performed By: #### [id number] #### [facility] [address], [place] [address]Msjyrez [Mass/Vol]7.1 g/dLNormal6.0-7.8[facility] HospitalComment on above:Performed By: #### [id number] #### [facility] [address], [place] [address]Qaniwh Levelon 30-94-4694Lvgyjq Lvl15 unit/XVmyvgh57-78ExuwqnEast Ohio Regional HospitalComment on above:Performed By: #### [id number] #### [facility] [address], [place] [address]Thwx Screenon 95-44-2850Njvn ScrNegativeNormalNegativeEast [facility] Regional HospitalComment on above:Performed By: #### [id number] #### [facility] [address], [place] [address]Xixlg Strep w/rfxon 01-01-2025S. pyogenes Ag IA Ql (Unsp spec) NegativeNormalNegativeEast [facility] Regional HospitalComment on above:Performed By: #### [id number] #### [facility] [address], [place] [address]T BetaHcg Qualon 08-04-2025U beta hCG QlNegativeNormalEast [facility] Regional HospitalComment on above:Performed By: #### [id number] #### [facility] [address], [place] [address]ZD with Cult Rflxon 52-50-7027Hqkwy (U)Light-YellowNormalYellow [facility] HospitalComment on above:Result Comment: Microscopic readings are only performed on those samples that meet specific criteria set forth by [facility].Performed By: #### [id number] #### [facility] [address], [place] [address]Lukiahz (U) [Mass/Vol]NegativeNormalNegativeEast [facility] Regional HospitalComment on above:Performed By: #### [id number] #### [facility] [address], [place] [address]Mctinik Ql (U)NegativeNormalMemorial Health System [facility] Comment on above:Performed By: #### [id number] #### [facility] [address], [place] [address]DD BloodTraceAbnormalNegGalion HospitalComment on above:Performed By: #### [id number] #### [facility] [address], [place] [address]VQ BacteriaTraceNormalTraceEast Ohio Regional HospitalComment on above:Performed By: #### [id number] #### [facility] [address], [place] [address]KO ClarityTurbidAbnormalClearFGrant HospitalComment on above:Performed By: #### [id number] #### [facility] [address], [place] [address]LH Leuk EstNegativeNormalMemorial Health System [facility]by [facility] Hospital Comment on above:Performed By: #### [id number] #### [facility] [address], [place] [address]LE MucousTraceNormalNegativeEast [facility] Regional HospitalComment on above:Performed By: #### [id number] #### [facility] [address] [place] [address]CB NitriteNegativeNormalNegativeEast [facility] Comment on above:Performed By: #### [id number] #### [facility] [address] [place] [address]GZ pH6.0Invalid Interpretation Code5.0-9.0[facility] HospitalComment on above:Performed By: #### [id number] #### [facility] [address], [place] [address]BA ProteinNegativeNormalNegativeEast [facility] Comment on above:Performed By: #### [id number] #### [facility] [address] [place] [address]CZ XMO5-05Uzmumfzq5-2RzeivxGrant HospitalComment on above:Performed By: #### [id number] #### [facility] [address] [place] [address]HD Spec Grav1.025Invalid Interpretation Code1.005-1.030[facility] HospitalComment on above:Performed By: #### [id number] #### [facility] [address] [place] [address]BA Squam Epithelial>10Invalid Interpretation CodeEast Ohio Regional HospitalComment on above:Performed By: #### [id number] #### [facility] [address] [place] [address]VD UrobilinogenNegativeNormalNegativeEast [facility] Regional HospitalComment on above:Performed By: #### [id number] #### [facility] [address], [place] [address]OK DWZ0-1Uthodj4-3VjoqacGrant HospitalComment on above: Performed By: #### [id number] #### [facility] [address] [place] [address]Uikhykzkfqjh (U) [Mass/Vol]NegativeNormalNegativeEast [facility] Regional HospitalComment on above:Performed By: #### [id number] #### [facility] [address], [place] [address]BA Spec DescClean CatchNormalEast Ohio Regional HospitalComment on above:Performed By: #### [id number] #### [facility] [address], [place] [address]qZZIaf 46-47-3024jRDI457 mL/min/1.73 j8Toephw>=59[facility] HospitalComment on above:Performed By: #### [id number] #### [facility] [address], [place] [address]VJ Note-Physicianon [id number] Note-PhysicianED Note-Physician Basic Information Time Seen: Tavo Angel PA-C 11/25/2024 16:07 Chief Complaint pt reports vaginal redness, pain with urination. has concerns for either UTI/yeast infection. deneis any concern for STD. History of Present Illness 24-year-old female reports emerged department with concerns of some vaginal redness, irritation andconcern of possible UTI. Reports history of UTIs. Reports painful urination. No concern for STIs. She reports no chance of . Denies any fevers or chills. No nausea vomiting or back pain. Reports she has irritation when she urinates. This been going on for last couple days. Denies any othercomplaints. Review of Systems No other aggravating or relieving factors no other associated symptoms no other prior treatments orcomplaints. Family: Reviewed and noncontributory Social: lives at [...] of dysuria. Symptoms been going on for lastcouple days. Concern for UTI. No nausea vomiting belly pain or back pain. Acute concerns we did a urinalysis. Urinalysis is consistent with UTI. Discussed patient was understanding. Placed on Pyridium and Keflex for antibiotic coverage as well as pain relief. Discussed return cautions. Follow- up with your primary care provider in 3 to 5 days. If symptoms worsen, do not improve, or new symptoms arise please report back to emergency department for further evaluation. The patient was understandingand agreeable to plan moving forward. Assessment/Plan UTI (urinary tract infection) (N39.0: Urinary tract infection, site not specified) Orders: cephalexin, 500 mg = 1 cap(s), Oral, q6hr, X 7 day(s), # 28 cap(s), Refills(s) 0, [facility], 160, cm, 11/25/24 16:07:00 EDT, Height/Length Dosing, 110, kg, 11/25/24 16:07:00 EDT, Weight Dosing phenazopyridine, 100 mg = 1 tab(s), Oral, TID, X 3 day(s), # 9 tab(s), Refills(s) 0, Pharmacy: [facility] 1985, 160, cm, 11/25/24 16:07:00 [...] EDT [address], [address] [place] [address] [facility] (1) Additional Instructions: Call Dr for diagnosis based follow up Patient Education Urinary Tract Infection, Adult, Usuh-lu-Qwmn Attestation Patient seen and evaluated by the physician medication assistant. Attending physician was present in the emergency department and supervised care. This visit was performed by both the physician and an APC. I performed all aspects of the MDM as documented. This report was transcribed using voice recognition software. Every effort was made to ensure accuracy, however, inadvertently computerized engineering faculty mistakes may be present. Appropriate healthcare PPE [...] Denies Substance Abuse, 10/23/19 (more content not included)...[facility] Medical CenterComment on above:Result Comment: Electronically Signed By: Tavo Angel PA-C\.br\Date and Time Signed: 11/26/2519:39 EDT\.br\Electronically Co-Signed By: Froylan Guaman MD\.br\Date and Time Co-Signed: 12/24/24 07:16 EDTC Urineon 40-27-9108Gkdxnvai identified Cx Nom (U)Microbiology PROCEDURE: Urine Culture [R1] SOURCE: U CleanCatch BODY SITE: COLLECTED DATE/TIME: 11/25/2024 16:11 EDT RECEIVED DATE/TIME: 11/25/2024 18:43 EDT START DATE/TIME: 11/25/2024 18:43 EDT FREE TEXT SOURCE: Stanley MUNOZ, Tavo Swanson. Stanley MUNOZ, Tavo Swanson. FINAL REPORTS Final Report [] Verified Date/Time: 11/27/2024 06:41 EDT <10,000 cfu/ml Mixed skin contaminants Performing Locations R1: This test was performed at: [facility], [address] [place] [address], [address]- , , KhwicoQaazzcUpper Valley Medical CenterComment on above:Performed By: #### [id number] #### [facility] [address] [place] [address]ZT Clinical Summaryon [id number] Clinical SummaryED Clinical Summary [address] [address] ED Clinical Summary Person Information Name: OSMAN COHEN [facility] Age: 24 Years : 2000 Sex: Female Language: Dominican PCP: MINAL NEWMAN DO Marital Status: Single [...] 11/25/2024 17:02:01 11/25/2024 17:02:01 11/25/2024 17:02:01 ADDRESS: [place] [id number] PHYS DOC NOTES: MEDICAL INFORMATION: Prescriptions Given: New Medications [facility], [address] [place], [place] [id number], [phone] cephalexin (Keflex 500 mg Cap) 1 Capsules By Mouth every 6 hours for 7 Days. Refills: 0. phenazopyridine (Pyridium 100 mg Tab) 1 Tablets By Mouth 3 times a day for 3 Days. Refills: 0. PATIENT EDUCATION INFORMATION: Instructions: Urinary Tract Infection, Adult, Cdtl-ad-Jkou Follow up: With: Address: When: MINAL JOHNSONOMARIBARNEY [address], [address] [phone] [facility] (1) In 3 days 11/28/2024 Comments: Call Dr for diagnosis based follow up DIAGNOSIS: UTI (urinary tract infection)[facility] Patient Summary on [id number] Patient SummaryED Patient Summary [address] [address] Patient Discharge Instructions Person Information Name: OSMAN COHEN Age: 24 Years Arrival Date: 11/25/2024 16:01:36 Discharge Diagnosis: UTI (urinary tract infection) Primary Care Physician: MINAL NEWMAN DO Provider Information Primary Provider: Froylan Guaman MD Advanced Product Line Manager:Tavo Angel PA-C The exam and treatment you received in the Emergency Department were for an urgent problem and are not intended as complete care. It is important that you follow up with a doctor, nurse practitioner,or physician???s medication assistant for ongoing care. If your symptoms become worse or you do not improve asexpected and you are unable to reach your usual health care provider, you should return to the Emergency Department. We are available 24 hours a day. OSMAN COHEN has been given the following list of patient education materials, prescriptions and follow-up instructions: Follow-up Instructions: With: Address: When: MINAL JOHNSONCASI [address], [facility] [address] [place] [address] [facility] () In 3 days 11/28/2024 Comments: Call Dr for diagnosis based follow up In the event that this physician does not participate in your insurance network, please consult with your insurance company to find a nearby participating provider. Patient Education Materials: Urinary Tract Infection, Adult, Umok-wl-Pmjj A MESSAGE TO ALL PATIENTS REGARDING OPIOIDS PRESCRIPTION OPIOIDS: WHAT YOU NEED TO KNOW Prescription opioids can be used to help relieve vhzuonqx-fb-joayrd pain and are often prescribed following a [...] for the same pain relief ??? Physical dependence???meaning you have symptoms of withdrawal when a [...] guidance from the Food and Drug Administration (www.fda.gov/Drugs/ResourcesForYou). ??? Visit www.cdc.gov/drugoverdose to learn about the risks of opioids abuse and overdose. ??? If (more content not included)...[facility] HospitalEROLOGY Ordered By: Kell Pascual on 11-43-8158RLW.beta subunit (U) [Moles/Vol]Negative [facility] Man SeroU BetaHcg Qualon 11-25-2024U beta hCG QlNegativeNormMercy Health St. Charles HospitalComment on above:Performed By: #### [id number] #### [facility] [address], [place] [address]LV with Cult Rflxon 43-76-1007Uocbx (U)YellowNormalYellowEast Ohio Regional HospitalComment on above:Result Comment: Microscopic readings are only performed on those samples that meet specific criteria set forth by [facility].Performed By: #### [id number] #### [facility] [address], [place] [address]Jmvhdau Ql (U)NegativeNormalMemorial Health System [facility] Comment on above:Performed By: #### [id number] #### [facility] [address], [place] [address]AL Blood1+ mg/dLAbnormCleveland Clinic [facility] Comment on above:Performed By: #### [id number] #### [facility] [address], [place] [address]FB Bacteria1+ /HPFAbnormalTraceEast [facility] Regional Hospital Comment on above:Performed By: #### [id number] #### [facility] [address], [place] [address]XY ClarityTurbidAbnormalClearFisher [facility] CenterComment on above:Performed By: #### [id number] #### [facility] [address], [place] [address]RU GlucoseTraceAbnormalNegGalion Hospital Comment on above:Performed By: #### [id number] #### [facility] [address] [facility], [place] [address]NH Leuk Vfu779 Janelle/uLAbnormalNegativeEast [facility] Regional HospitalComment on above:Performed By: #### [id number] #### [facility] [address] [facility], [place] [address]AJ MucousTraceNormalNegativeEast [facility] Regional HospitalComment on above:Performed By: #### [id number] #### [facility] [address] [facility], [place] [address]MV NitriteNegativeNormnjNegGalion Hospital Comment on above:Performed By: #### [id number] #### [facility] [address], [place] [address]CG pH5.5Invalid Interpretation Code5.0-9.0[facility] HospitalComment on above:Performed By: #### [id number] #### [facility] [address], [place] [address]IJ ProteinTraceAbnormalNegGalion Hospital Comment on above:Performed By: #### [id number] #### [facility] [address] [facility], [place] [address]RC FZJ0-67Fdjisiej8-8Ahkhkg [facility] CenterComment on above:Performed By: #### [id number] #### [facility] [address] [place] [address]GL Spec Grav1.021Invalid Interpretation Code1.005-1.030[facility] HospitalComment on above:Performed By: #### [id number] #### [facility] [address] [place] [address]GG Squam Epithelial>10Invalid Interpretation CodeEast Ohio Regional HospitalComment on above:Performed By: #### [id number] #### [facility] [address] [place] [address]UF UrobilinogenNegativeNormalNegativeEast [facility] Regional HospitalComment on above:Performed By: #### [id number] #### [facility] [address] [place] [address]FC WBC>25Ynrmlslv3-0Ifpoho [facility] CenterComment on above:Performed By: #### [id number] #### [facility] [address] [place] [address]Nlmdliopuutk (U) [Mass/Vol]NegativeNormalNegativeEast [facility] Regional HospitalComment on above:Performed By: #### [id number] #### [facility] [address] [place] [address]GG Spec DescClean CatchNormalEast [facility] Regional HospitalComment on above:Performed By: #### [id number] #### [facility] [address] [place] [address]RBEFXPEZVJDowzrer By: SYSTEM SYSTEM on 02-48-7411Zudshijt Auto Ql (U)1+ /HPFInvalid Interpretation CodeTrace/HPFFT UA Auto SSBilirubin Ql (U) NegativeNormalNegativemg/dLFT UA Auto SSClarity (U)Turbid *ABN* (11/25/24 4:11 PM)Invalid Interpretation CodeClearFTMC UA Auto SSColor (U)Yellow 1 (11/25/24 4:11 PM)NormalYellowHOLDENVILLE GENERAL HOSPITAL – [place] Auto SSComment on above:Interpretive Data: Microscopic readings are only performed on those samples that meet specific criteria set forth by [facility].Epithelial cells.squamous Auto (Urine sed) [#/Area]>10 graded/HPFInvalid Interpretation CodeFT UA Auto SSGlucose Ql (U)Trace mg/dLInvalid Interpretation Code Negativemg/dLFT UA Auto SSHemoglobin Auto test strip (U) [Mass/Vol]1+ mg/dL Invalid Interpretation CodeNegativemg/dLFT UA Auto SSKetones Auto test strip Ql (U)NegativeNormalNegativemg/dLFT UA Auto SSLeukocyte esterase Auto test strip Ql (U)500 Janelle/uL Janelle/uLInvalid Interpretation CodeNegativeLeu/uLHOLDENVIL[facility] [place] [facility] Auto SSMucus Auto Ql (U)Trace graded/LPFNormalNegativegraded/LPFFTMC UA Auto SS Nitrite Auto test strip Ql (U)NegativeNormalNegativemg/dLHOLDENVILLE [facility]AL [facility] [place] [facility] Auto SSpH (U) 5.5 *NA* (11/25/24 4:11 PM)Invalid Interpretation Code5.0 - 9.0[facility] [place] [facility] Auto SSProtein Ql (U)Trace mg/dLInvalid Interpretation CodeNegativemg/dLHOLDENVILLE [facility]AL [facility] [place] [facility] Auto SSRBC Ql (U) 4-20 graded/HPFInvalid Interpretation Code0-3graded/HPFMC UA Auto SSSpecific gravity (U) [Rel density]1.021 *NA* (11/25/24 4:11 PM)Invalid Interpretation Code1.005 - 1.030[facility] [place] [facility] Auto SS Urobilinogen (U) [Mass/Vol]NegativeNormalNegativemg/dLHOLDENVILLE GENERAL [facility]OS[facility] [place] [facility] Auto SSWBC Auto (Urine sed) [#/Area]>75 graded/HPFInvalid Interpretation Code0-5graded/HPFHOLDENVILLE GENERAL HOSP[facility] [place] [facility] Auto SSURINALYSISOrdered By: Nydia Manning on 43-95-9989PN Spec DescClean Catch (11/25/24 4:11 PM)NormalHOLDENVILLE GENERAL HOSP[facility] – [place] [facility]A Auto SSLaboratory - Chemistry and Chemistry - challengeon 06-81-2599Thaxlidz [Mass/Vol]16.3 ug/dL6.2 - 19.4 ug/dLNOMS HealthcareComment on above:Please Note: The reference interval and flagging for this test is for an AM collection. If this is a PM collection please use: Cortisol PM: 2.3-11.9 Laboratory - Cytologyon 55-62-9595Kmcmgymibr Cyto stain Nom (Cvx/Vag) [ID] CommentNOCT HealthcareComment on above:Thao Guerrier, Motion Graphics Artist (ASCP)Cytology report Cyto stain Doc (Cvx/Vag)CommentNOCT HealthcareComment on above:NEGATIVE FOR INTRAEPITHELIAL LESION OR MALIGNANCY.Cytology report Cyto stain.thin prep Doc (Cvx/Vag)CommentNOCT HealthcareComment on above:This liquid based ThinPrep(R) pap test was screened with the use of an image guided system. Statement of adequacy Cyto stain (Cvx/Vag) [Interp]CommentNOCT HealthcareComment on above:Satisfactory for evaluation. Endocervical and/or squamous metaplastic cells (endocervical component) are present. Laboratory - Microbiology and Antimicrobial susceptibilityon [id number] 16+18+31+33+35+39+45+51+52+56+58+59+66+68 DNA Probe+sig amp Ql (Cvx)Negative NegativeNOMS HealthcareComment on above:This nucleic acid amplification test detects fourteen high-risk HPV types (16,18,31,33,35,39,45,51,52,56,58,59,66,68) without differentiation. Microscopic observation Other stain Nom (Unsp spec).NOMS HealthcareClindamycin Disk diffusion (KB) [Susc]CommentNOCT HealthcareComment on above:Written Authorization Written Authorization Written Authorization Received. Authorization received from FAXED ORDER 09-28-2024 Logged by Brit [facility] Laboratory - Miscellaneous testson 29-09-1480Ptceqza comment (Unsp spec) [Interp]CommentNOCT HealthcareComment on above:The Pap smear is a screening test designed to aid in the detection of premalignant and malignant conditions of the uterine cervix. It is not a diagnostic procedure and should not be used as the sole means of detecting cervical cancer. Both false-positive and false-negative reports do occur. No Panel Informationon 26-01-9747Xalontrjg ICD code [Identifier]CommentNOCT HealthcareComment on above:Z01.419 Z12.4 Performed at: 01 - [facility] [address] [id number] Icu Specialist: Liyah Dsouza MD, Phone: [phone] Performed at: 02 - [facility] [address] [id number] Icu Specialist: Liyah Dsouza MD, Phone: [phone] Specimen Comment: No. of containers..01 ThinPrep [facility] Performed at: - [facility] [address] [id number] Icu Specialist: Isidro John PhD, Phone: [phone] [facility] w/ Auto Diffon 70-15-0127Wuizfkgks/100 WBC (Bld)0.2 %Normal0.0-2.0[facility] Regional HospitalComment on above:Performed By: #### [id number] #### [facility] [address] [place] [address]Ocjuqxnbq/Leukocytes Auto (Bld) [Pure # fraction]0.0 E9/LNormal 0.0-0.2FGrant HospitalComment on above:Performed By: #### [id number] #### [facility] [address] [place] [address]64[address]Dgayhpwwsnt (Bld) [#/Vol]0.1 E9/LNormal0.0-0.5FGrant HospitalComment on above:Performed By: #### [id number] #### [facility] [address] [place] [address] 04397Oztvihgsnlb/100 WBC (Bld)1.1 %Normal0.0-8.0[facility] HospitalComment on above:Performed By: #### [id number] #### [facility] [address] [place] [address]9628Dbbkkzskcis distribution width (RBC) [Ratio]12.6 %Normal 10.9-14.2FGrant HospitalComment on above:Performed By: #### [id number] #### [facility] [address] [place] [address]0626Itajqmuhpe (Bld) [Volume fraction]38.8 %Zihjsl88.0-46.0[facility] HospitalComment on above:Performed By: #### [id number] #### [facility] [address] [place] [address] 02190Yxntilfzyu (Bld) [Mass/Vol]13.0 g/pOVqmkka61.0-16.0[facility] HospitalComment on above:Performed By: #### [id number] #### [facility] [address] [place] [address] 53898Rnmduwwdknb (Bld) [#/Vol]3.6 E9/LNormal1.0-4.0[facility] HospitalComment on above:Performed By: #### [id number] #### [facility] [address] [place] [address] 98382Grlvwvliowa/100 WBC (Bld)31.4 %Sitfvw11.0-50.0[facility] HospitalComment on above:Performed By: #### [id number] #### [facility] [address] [place] [address]6052WEI (RBC) [Entitic mass]26.0 pgLow27.0-34.0[facility] HospitalComment on above:Performed By: #### [id number] #### [facility] [address] [place] [address] 63036XZGZ (RBC) [Mass/Vol]33.4 g/dNGitrfs45.4-36.0[facility] HospitalComment on above:Performed By: #### [id number] #### [facility] [address] [place] [address] 91273HLF (RBC) [Entitic vol]77.8 fLLow80.0-100.0[facility] HospitalComment on above:Performed By: #### [id number] #### [facility] [address] [place] [address]08[address]Codvqpahf (Bld) [#/Vol]0.7 E9/LNormal0.2-1.0[facility] HospitalComment on above:Performed By: #### [id number] #### [facility] [address] [place] [address]78[address]Fydmgvimmdv (Bld) [#/Vol]7.1 E9/LNormal2.0-7.5FGrant HospitalComment on above:Performed By: #### [id number] #### [facility] [address] [place] [address]1676Qlsdtnwvqfr/100 WBC (Bld)61.2 %Yfrpvd54.0-75.0[facility] HospitalComment on above:Performed By: #### [id number] #### [facility] [address] [place] [address] 69282Zjqsumcl mean volume (Bld) [Entitic vol]6.4 fLNormal6.4-10.8 [facility] HospitalComment on above:Performed By: #### [id number] #### [facility] [address] [place] [address] 72489Lqqyxvepd (Bld) [#/Vol]321.0 E9/BZudbev720.0-500.0[facility] HospitalComment on above:Performed By: #### [id number] #### [facility] [address] [place] [address] 05167DNU (Bld) [#/Vol]5.0 E12/LNormal4.3-5.9[facility] HospitalComment on above:Performed By: #### [id number] #### [facility] [address] [place] [address] 14386IKQ corrected for nucl RBC Auto (Bld) [#/Vol]11.6 E9/LHigh 4.0-11.0[facility] HospitalComment on above:Performed By: #### [id number] #### [facility] [address] [place] [address] 21735ZMWPBZIUFYleqxcq By: SYSTEM SYSTEM on 06-38-6143Iqmetwgg HS pg/mLLow10.10 - 27.10 pg/mLRemisol ChemComment on above:Interpretive Data: The 95% CI (Confidence Interval) PPV (Positive Predictive Value) for myocardial i nfarction in females is 38 pg/mL, in males 51 pg/mL. The results should be used in conjunction withclinical conditions of myocardial infarction. (Access High Sensitivity Troponin I Instructions For Use, Mozido, December 2017)Anion gap [Moles/Vol]13 mmol/LNormal6 - 16 mEq/LRemisol ChemCalcium [Mass/Vol]8.6 mg/dLLow8.9 - 11.1 mg/dLRemisol ChemChloride [Moles/Vol]106 mmol/L Eamuwa116 - 111 mmol/LRemisol ChemCO2 [Moles/Vol]24 mmol/IAzmeim74 - 31 mmol/L Remisol ChemCreatinine [Mass/Vol]0.7 mg/dLNormal0.5 - 1.3 mg/dLRemisol ChemeGFR 126 mL/min/1.73 q9Lyjnfe>=59mL/min/1.73 i8Wxihxsl ChemGlucose [Mass/Vol]99 mg/dL Jwbagt55 - 199 mg/dLRemisol ChemPotassium [Moles/Vol]3.4 mmol/LLow3.5 - 5.3 mmol/LRemisol ChemSodium [Moles/Vol]140 mmol/YLhnrbi107 - 145 mmol/LRemisol Chem Troponin HSpg/mLLow10.10 - 27.10 pg/mLRemisol ChemComment on above:Interpretive Data: The 95% CI (Confidence Interval) PPV (Positive Predictive Value) for myocardial infarction in females is 38 pg/mL, in males 51 pg/mL. The results should be used in conjunction withclinical conditions of myocardial infarction. (Access High Sensitivity Troponin I Instructions For Use, Mozido, December 2017)Urea nitrogen [Mass/Vol]12 mg/dLNormal5 - 21 mg/dLRemisol ChemUrea nitrogen/Creatinine [Mass ratio]17 mg/qqGjgdcn43 - 20Remisol ChemCOAGULATION Ordered By: Maria Del Rosario Garza on 37-52-2861eBYT Coag (PPP) [Time]33.6 oMnbxod23.1 - 36.5 second(s)[facility] [place] Auto CoagComment on above:Interpretive Data: Parameter 15 days - 4 weeks 1 - 5 months 6 - 11 months 1 - 5 years 6 - 10 years 11 - 17 years PTT Mean: 35.4 (27.6-45.6) Mean: 33.5 (24.8-40.7) Mean: 32.4 (25.1-40.7) Mean: 31.6 (24.0-39.2) Mean: 31.6 (26.9-38.7) Mean: 31.0 (24.6-38.4) Pediatric Reference ranges were obtained from a study by Demario Souza et al. prepared from 1437 samples obtained at 7 different centers using the same coagulation reagent and instrumentation as [facility] [place]. Currently there are no coagulation studies available worldwide for children to 14 days, andno normal ranges. Heparin therapeutic range (represented by Anti-Factor Xa activity of 0.2 - 0.4 U/mL) corresponds to PTT of 56.6 - 109.0 sec.INR Coag (PPP) [Relative time]1.04 {INR}Invalid Interpretation CodeHOLDENVILLE GENERAL HOSPITAL – [place] Auto CoagComment on above:Interpretive Data: INR results are specifically intended to assess patients stabilized on long-term Anticoagulation therapy suggested INR s Less Intensive Anticoagulation 2.0 3.0 Conventional Range 3.0 4.5PT Coag (PPP) [Time]11.6 sNormal9.4 - 12.5 second(s) [facility] [place] Auto CoagComment on above:Interpretive Data: 15 days - 4 weeks 1 - 5 months 6 -11 months 1-5 years 6-10 years 11 -17 years Mean: 11.2 (9.5-12.6) Mean: 11.0 (9.7-12.8) Mean: 11.0 (9.8-13.0) Mean: 11.3 (9.9-13.4) Mean: 11.7 (10.0-14.6) Mean: 11.8 (10.0 - 14.1) Pediatric Reference ranges were obtained from a study by eleni Izquierdo al. prepared from 1437 samples obtained at 7 different centers using the same coagulation reagent and instrumentation as [facility] [place]. Currently there are no coagulation studies available worldwide for children to 14 days, andno normal ranges.Consent for Treatmenton 95-30-8181Dabfpka for Treatment [id number]#1.00TIFFNormalEast [place] Regional HospitalHEMATOLOGYOrdered By: SYSTEM SYSTEM on 20-10-3184Eihhuvqpi/100 WBC (Bld) 0.2 %Normal0.0 - 2.0 %Remisol HemeBasophils/Leukocytes Auto (Bld) [Pure # fraction]0.0 E9/LNormal0.0 - 0.2 E9/LRemisol HemeEosinophils (Bld) [#/Vol]0.1 E9/LNormal0.0 - 0.5 E9/LRemisol HemeEosinophils/100 WBC (Bld)1.1 %Normal0.0 - 8.0 %Remisol HemeErythrocyte distribution width (RBC) [Ratio]12.6 %Rtgkco89.9 - 14.2 %Remisol HemeHematocrit (Bld) [Volume fraction]38.8 %Bdkodc30.0 - 46.0 % Remisol HemeHemoglobin (Bld) [Mass/Vol]13.0 g/oXQmhphf58.0 - 16.0 gm/dLRemisol HemeLymphocytes (Bld) [#/Vol]3.6 E9/LNormal1.0 - 4.0 E9/LRemisol Heme Lymphocytes/100 WBC (Bld)31.4 %Nwyqhv60.0 - 50.0 %Remisol HemeMCH (RBC) [Entitic mass]26.0 pgLow27.0 - 34.0 pgRemisol HemeMCHC (RBC) [Mass/Vol]33.4 g/dLNormal 31.4 - 36.0 gm/dLRemisol HemeMCV (RBC) [Entitic vol]77.8 fLLow80.0 - 100.0 fL Remisol HemeMonocytes (Bld) [#/Vol]0.7 E9/LNormal0.2 - 1.0 E9/LRemisol Heme Monocytes/100 WBC (Bld)6.1 %Normal4.0 - 14.0 %Remisol HemeNeutrophils (Bld) [#/Vol]7.1 E9/LNormal2.0 - 7.5 E9/LRemisol HemeNeutrophils/100 WBC (Bld)61.2 % Vagrbo21.0 - 75.0 %Remisol HemePlatelet mean volume (Bld) [Entitic vol]6.4 fL Normal6.4 - 10.8 fLRemisol HemePlatelets (Bld) [#/Vol]321.0 E9/KDsrrdj307.0 - 500.0 E9/LRemisol HemeRBC (Bld) [#/Vol]5.0 E12/LNormal4.3 - 5.9 E12/LRemisol HemeWBC corrected for nucl RBC Auto (Bld) [#/Vol]11.6 E9/LHigh4.0 - 11.0 E9/L Remisol HemeConsent for Treatmenton 39-57-8967Iwivokt for Treatment [id number]#1.00[facility] CenterDischarge Instructionson 39-46-7237Mqceudqvm Instructions [id number]#1.00[facility]IFT[facility] Clinical Summaryon [id number] Clinical Summary [place] [id number] ED Clinical Summary Person Information Name: OSMAN COHEN/[facility] Age: 22 Years : 2000 Sex: Female Language: Dominican PCP: MINAL NEWMAN DO Marital Status: Single [...] 10/05/2023 22:21:15 10/05/2023 22:21:15 10/05/2023 22:21:15 ADDRESS: [facility] [phone] PHYS DOC NOTES: MEDICAL INFORMATION: Prescriptions Given: PATIENT EDUCATION INFORMATION: Instructions: Migraine Headache, Ngop-aa-Mkte Follow up: With: Address: When: MINAL NEWMAN [address], [place] [address] Business (6) In 3 days 10/08/2023 Comments: Continue taking your medications as prescribed. Please follow-up with your primary care doctor next2 to 3 days for further evaluation and management. Please return to the ED for any new or worseningsymptoms. DIAGNOSIS: Headache, migraineNormalFisher Victoria Medical CenterED Note-Physicianon [id number] Note-PhysicianBasic Information Time Seen: Deana Mohan DO 10/05/2023 [...] and Complexity of Problems Differential Diagnosis: [] [facility] Data External documents reviewed: [] [...] her primary care doctor next 2 to 3days. She is to return to the ED [...] mL, IV, 983.61 mL/hr, for 30 day(s), Stopdate 11/04/23 20:52:00 EDT, STAT, Start date 10/05/23 [...] medications Follow-up With When Contact Information MINAL JOHNSONCASI In 3 days 10/08/[address], [address] [place] [address]- Business (1) Additional Instructions: Continue taking your medications as prescribed. Please follow-up with yourprimary care doctor next 2 to 3 days for further evaluation and management. Please return to the EDfor any new or worsening symptoms. Patient Education Migraine Headache, Oihl-vr-Tllj Problem List/Past Medical History Ongoing BMI 35.0-35.9,adult [...] use Smokeless Tobacco Use:. (more content not included)...[facility] CenterComment on above:Result Comment: Electronically Signed By: Deana Mohan DO.laura\Date and Time Signed: 10/05/23 22:45 EDTED Patient Education Noteon 21-84-8543ZW Patient Education NoteNeurology Migraine Headache A migraine headache is a [...] these instructions at home: Medicines ? Take axeg-pox-jvrwiox and prescription medicines only as told by your doctor. ? Ask your doctor if the medicine prescribed to you: ? Requires you to avoid driving or using heavy machinery. ? Can cause trouble pooping (constipation). You may need to take these steps to prevent or treat trouble pooping: ? Drink enough fluid to keep your pee (urine) pale yellow. ? Take fcbf-tmj-pogsinn or prescription medicines. ? Eat foods that [...] side or both sides of your head. Theseheadaches can also cause other symptoms. ? This condition may be treated with medicines and changes to your lifestyle. ? Keep a journal to find out what may bring on your migraine headaches. ? Contact a doctor if you get a migraine headache that is different or worse than other (more content not included)...[facility] Summaryon [id number] Patient Summary [address] [address] Patient Discharge Instructions Person Information Name: OSMAN COHEN Age: 22 Years Arrival Date: 10/05/2023 20:33:23 Discharge Diagnosis: Headache, migraine Primary Care Physician: MINAL NEWMAN DO Provider Information Primary Provider: Deana Mohan DO Advanced Product Line Manager:None The exam and treatment you received in the Emergency Department were for an urgent problem and are not intended as complete care. It is important that you follow up with a doctor, nurse practitioner,or physician?s medication assistant for ongoing care. If your symptoms [...] With: Address: When: MINAL NEWMAN [address], [facility] [address] [place] [address] Business (1) In 3 days 10/08/2023 Comments: Continue taking your medications as prescribed. Please follow-up with your primary care doctor next2 to 3 days for further evaluation and management. Please return to the ED for any new or worseningsymptoms. In the event that this physician does not participate in your insurance network, please consult with your insurance company to find a nearby participating provider. Patient Education Materials: Migraine Headache, Swgg-db-Xkhz A MESSAGE TO ALL PATIENTS REGARDING OPIOIDS PRESCRIPTION OPIOIDS: WHAT YOU NEED TO KNOW Prescription opioids can be used to help relieve qjpyrrbc-yp-iwcoil pain and are often prescribed following a [...] and have fewer risks and side effects. Optionsmay include: ? Pain relievers such as acetaminophen, [...] unused prescription opioids: Find your community drug take- back program or yourZagsterrmacy mail-back program, or flush them down the toilet, following guidance from the Food and Drug Administration (www.fda.gov/Drugs/ResourcesForYou). ? Visit www.cdc.gov/drugoverdose to learn about the risks (more content not included)...NormalEast [facility] Regional HospitalPrescriptions/Work Noteson 83-17-5899Secsimyopwoxx/Work Notes [id number]#1.00TIFFNoCincinnati VA Medical CenterDischarge Instructionson 89-62-3841Zkknfhbku Instructions [id number]#1.00TIFFMartin Memorial Hospital Clinical Summaryon [id number] Clinical Summary [place] [address] ED Clinical Summary Person Information Name: OSMAN COHEN/[facility] Age: 22 Years : 2000 Sex: Female Language: Dominican PCP: MINAL NEWMAN DO Marital Status: Single [...] 08/11/2023 00:20:20 08/11/2023 00:20:20 08/11/2023 00:20:20 ADDRESS: [place] [id number] PHYS DOC NOTES: MEDICAL INFORMATION: Prescriptions Given: New Medications [facility], [address] [place], [place] [id number], [phone] predniSONE (predniSONE 20 mg Tab) 2 Tablets By Mouth every day for 4 Days. Refills: 0. PATIENT EDUCATION INFORMATION: Instructions: Upper Respiratory Infection, Adult Follow up: With: Address: When: MINAL NEWMAN [address], [address] [place] [address] Business (1) In 3 days DIAGNOSIS: Acute URINormalFisher Peter Medical CenterED Note-Physicianon [id number] Note-PhysicianBasic Information Time Seen: Troy Treadwell DOHaroon 08/10/2023 22:52 Chief Complaint Pt states wheezing, [...] a half. Patient states that she is takingBenadryl at home with minimal improvement. She denies [...] and Complexity of Problems Differential Diagnosis: [] [facility] Data External documents reviewed: N/A [...] discussed the plan of discharge with a p rescription for oral prednisone and we will give her an albuterol inhaler to use as needed as well.Will have her follow-up closely on the patient basis with her primary care physician. Shared decision making: As above Code status: N/A Assessment/Plan Acute URI (J06.9: Acute upper respiratory infection, unspecified) Orders: albuterol, 180 mcg, 2 puff(s), Aerosol, Inhalation, q6hr PRN Shortness of breath or wheezing, STAT,Start date 08/10/23 23:35:00 EDT, teach and treat only predniSONE, 40 mg = 2 tab(s), Oral, Daily, X 4 day(s), # 8 tab(s), Refills(s) 0, Pharmacy: [facility] 1985, 165, cm, 08/10/23 23:00:00 EDT, Height/Length Dosing, 103.6, kg, 08/10/23 23:00:00 EDT, Weight Dosing predniSONE, 40 mg = 2 tab(s), Tab, Oral, Once, Stop date 08/10/23 23:35:00 EDT, STAT, Start date 08/10/23 23:35:00 EDT, 08/10/23 23:35:00 EDT ECG 12 Lead Adult Influenza A&B Ag Rapid COVID Antigen ([facility]) XR Chest Single View Disposition Plan Discharge Prescription List Prescriptions predniSONE 20 mg Tab, 40 mg= 2 tab(s), Oral, Daily Follow-up With When Contact Information MINAL NEWMAN In [address], [address] [place] [address]- Business (1) Additional Instructions: Patient Education Upper [...] documented abdominal exam. Likely some overlying bowel gas.[facility] Medical CenterComment on above:Result Comment: Electronically Signed By: Satish Thao DO.br\Date and Time Signed: 08/11/23 08:47 EDTED Patient Education Noteon [id number] Patient Education Note Infectious Disease Upper Respiratory [...] to help relieve symptoms, such as: ? Paus-kzr-oamojpe cold medicines. ? Cough suppressants. Coughing is [...] other clear broths. General instructions ? Take bdwq-ufn-osdjvkt and prescription medicines only as told by your health care provider. Theseinclude cold medicines, fever reducers, and cough suppressants. [...] seconds. If soap and water are not available,use hand laboratory secretary. ? Avoid touching your mouth, face, eyes, [...] emergency. Get help (more content not included)... [facility] Patient Summaryon [id number] Patient Summary [address] [address] Patient Discharge Instructions Person Information Name: OSMAN COHEN Age: 22 Years Arrival Date: 08/10/2023 22:46:40 Discharge Diagnosis: Acute URI Primary Care Physician: MINAL NEWMAN DO Provider Information Primary Provider: Troy Treadwell DO Advanced Product Line Manager:None The exam and treatment you received in the Emergency Department were for an urgent problem and are not intended as complete care. It is important that you follow up with a doctor, nurse practitioner,or physician?s medication assistant for ongoing care. If your symptoms [...] With: Address: When: MINAL TRENT [address], [address] [address] Business (1) In 3 days In the event that this physician does not participate in your insurance network, please consult with your insurance company to find a nearby participating provider. Patient Education Materials: Upper Respiratory Infection, Adult A MESSAGE TO ALL PATIENTS REGARDING OPIOIDS PRESCRIPTION OPIOIDS: WHAT YOU NEED TO KNOW Prescription opioids can be used to help relieve kscrvray-xf-fnzswl pain and are often prescribed following a [...] and have fewer risks and side effects. Optionsmay include: ? Pain relievers such as acetaminophen, [...] unused prescription opioids: Find your community drug take- back program or yourpharmacy mail-back program, or flush them down the toilet, following guidance from the Food and Drug Administration (www.fda.gov/Drugs/ResourcesForYou). ? Visit www.cdc.gov/drugoverdose to learn about the risks of opioids abuse and overdose. ? If you believe you may be struggling with addiction, tell your health child care nurse and ask for guidance or call [facility]?S National Helpline at 2-130-273-HELP. v Source: [place] Department of Health (more content not included)...NormalEast Ohio Regional HospitalPrescriptions/Work Noteson 28-80-9595Hndzdxfimbugs/Work [id number]#1.00TIFFUpper Valley Medical CenterXR Chest Single Viewon 67-48-2726HS Chest Single ViewExam Date/Time: 08/10/2023 23:04 EDT Reason for Exam: [...] Ka,r in mGy = na DAP = naNormalEast [place] Regional HospitalConsent for Treatmenton 08-10-2023 Consent for [id number]#1.00TIFFNoMercy Health Fairfield HospitalInfluenza A&B Agon 62-12-4776Fxjkipjust A AgNegative NormalNegativeEast Ohio Regional HospitalComment on above:Performed By: #### [id number], [id number] ####Vamsi [facility] [address] [place], [place] [address]Wsywotfwjf B AgNegativeNormalNegativeFormerly Vidant Duplin Hospitaler [facility] CenterComment on above:Result Comment: Test sensitivity and specificity vary for age group, specimen type, antigen types, and prevalence of disease. Test results must be evaluated in conjunction with other clinical data available to the physician. Individuals who received nasally administered Influenza A vaccine may havepositive test results up to 3 days after vaccination.Performed By: #### [id number], [id number] ####Vamsi [facility] [address] [place], [place] [address]XTBCE OTHER TESTSOrdered By: Maria Del Rosario Garza on 08-10-2023 Influenzae A AgNegative (08/10/23 11:02 PM)NormalNegativeHOLDENVILLE GENERAL [facility] [place] Man SeroInfluenzae B AgNegative 1 (08/10/23 11:02 PM)NormalNegativeHOLDENVILLE GENERAL HOSPITAL – [place] Man SeroComment on above:Interpretive Data: Test sensitivity and specificity vary for age group, specimen type, antigen types, and prevalence of disease. Test results must be evaluated in conjunction with other clinical dataavailable to the physician. Individuals who received nasally administered Influenza A vaccine may have positive test results up to 3 days after vaccination.Rapid COV Int NEG CtlPass (08/10/23 11:02 PM)NormalHOLDENVILLE GENERAL HOSPITAL [facility] [place] Man SeroRapid COV Int POS CtlPass (08/10/23 11:02 PM)NormalHOLDENVILLE GENERAL HOSPITAL [facility] [place] Man SeroSARS-CoV+SARS-CoV-2 (COVID-19) Ag IA.rapid Ql (Resp)Not Detected 2 (08/10/23 11:02 PM)NormalNot DetectedHOLDENVILLE GENERAL HOSPITAL – [place] Man SeroComment on above:Interpretive Data: The UXFLIP Veritor System for Rapid Detection of SARS-CoV-2 is a chromatographic digital immunoassay intended for the direct and qualitative detection of SARS-CoV-2 nucleocapsid antigens in nasal swabs from individuals who are suspected of COVID-19 by their healthcare provider withinthe first five days of the onset of [...] of proteins from SARS-CoV-2, not for any otherviruses or pathogens; and, in the [place], this test is only authorized for the duration of the declaration that circumstances exist justifying the authorization of emergency use of in vitro diagnostics for detection and/or diagnosis of the virus that causes COVID-19 under Section 564(b)(1) of the Act,21 U.S.C. 360bbb-3(b)(1), unless the authorization is terminated or revoked sooner.Rapid COVID Antigen ([facility])on 67-24-0635Uytaw COV Int NEG CtlPassNormMercy Health St. Charles HospitalComment on above:Performed By: #### [id number], [id number] ####[facility] [address] [place], [place] [address]Dxsvx COV Int POS CtlPassNormMercy Health St. Charles Hospital Comment on above:Performed By: #### [id number], [id number] ####[place] [address] [place], [place] [address]VZVE-EzH+SARS-CoV-2 (COVID-19) Ag IA.rapid Ql (Resp)Not detectedNormalNot Barnesville HospitalComment on above:Result Comment: The APJeT System for Rapid Detection of SARS-CoV-2 is a chromatographic digital immunoassay intended for the direct and qualitative detection of SARS-CoV-2 nucleocapsid antigensin nasal swabs from individuals who are suspected [...] of proteins from SARS-CoV-2, not for any otherviruses or pathogens; and, in the [place], this test is only authorized for the duration of the declaration that circumstances exist justifying the authorization of emergency use of in vitro diagnostics for detection and/or diagnosis of the virus that causes COVID-19 under Section 564(b)(1) of the Act,21 U.S.C. ? 360bbb-3(b)(1), unless the authorization is terminated or revoked sooner.Performed By: #### [id number], [id number] ####Vamsi [facility] [address] [place], [place] [address]V Urineon 89-62-7587Lohjbbyw identified Cx Nom (U)Microbiology PROCEDURE: Urine Culture [R1] SOURCE: U CleanCatch BODY SITE: COLLECTED DATE/TIME: 06/22/2023 21:41 EST RECEIVED DATE/TIME: 06/22/2023 23:42 EST START DATE/TIME: 06/22/2023 23:42 EST FREE TEXT SOURCE: Troy Treadwell DO, DO, Noah S. FINAL REPORTS Final Report [] Verified Date/Time: 06/24/2023 10:16 EST <10,000 cfu/ml Mixed skin contaminants Performing Locations R1: This test was performed at: [facility], [address] [place] [address], [address] , [place], YbsixvHeuragUpper Valley Medical CenterComment on above:Performed By: #### [id number], [id number], [id number] ####[facility] [address] [place], [place] [address]KO Abdomen/Pelvis w/ Contraston 75-25-6460YQ Abdomen/Pelvis w/ ContrastExam Date/Time: 06/22/2023 22:14 EST Reason for Exam: [...] amount in ml's: 100 Rectal Contrast Given? NoNFayette County Memorial HospitalDischarge Instructions on 32-37-9960Dwwxobyob Instructions [id number]#1.00TIFFNormalThe [facility] Clinical Summaryon 11-30-3808IC Clinical Summary [place] [id number] ED Clinical Summary Person Information Name: OSMAN COHEN [facility] Age: 22 Years : 2000 Sex: Female Language: Dominican PCP: MINAL NEWMAN DO Marital Status: Single [...] 06/23/2023 01:40:22 06/23/2023 01:40:22 06/23/2023 01:40:22 ADDRESS: [facility] [place] [facility] [id number] PHYS DOC NOTES: MEDICAL INFORMATION: Prescriptions Given: New Medications [id number], [address] [place], [place] [id number], [phone] cefpodoxime (cefpodoxime 200 mg Tab) 1 Tablets By Mouth every 12 hours for 10 Days. Refills: 0. naproxen (naproxen 500 mg Tab) 1 Tablets By Mouth 2 times a day for 10 Days. Refills: 0. PATIENT EDUCATION INFORMATION: Instructions: Urinary Tract Infection, Adult Follow up: With: Address: When: MINAL NEWMAN [address], [address] [place] [address] Business (1) In 3 days DIAGNOSIS: AP (abdominal pain); Acute UTINormalFisher Victoria Medical CenterED Note-Physician on 24-69-1368MR Note-PhysicianBasic Information Time Seen: Troy Treadwell DO 06/22/2023 20:58 Chief Complaint generallized abd pain for two hours. denies nausea or vomiting History of Present Illness HPI: Patient is a 22-year-old female with past medical history of migraines who presents the ED forabdominal pain. Patient states that this for started [...] and Complexity of Problems Differential Diagnosis: [] [facility] Data External documents reviewed: N/A [...] slightly decreased cortical enhancement in both kidneys. Noperinephric edema is seen but pyelonephritis is suspected. [...] day(s), # 20 tab(s), Refills(s) 0, Pharmacy: [facility], 164, cm, 06/22/23 20:52:00 EST, Height/Length Dosing, 95.7, kg, 06/22/23 20:52:00 EST, Weight Dosing ceftriaxone + Sodium Chloride 0.9% intravenous solution 50 mL, 1,000 mg = 1 EA, IV Piggyback, Once,Stop date 06/23/23 0:26:00 EST, STAT, Start date 06/23/23 0:26:00 EST, 100 mL/hr, Infuse over 30 minute(s), 06/23/23 0:26:00 EST ketorolac, 15 mg = 1 mL, Injection, IV Push, Once, Stop date 06/22/23 21:31:00 EST, STAT, Start date 06/22/23 21:31:00 EST, 06/22/23 21:31:00 EST naproxen, 500 mg = 1 tab(s), Oral, BID, X 10 day(s), # 20 tab(s), Refills(s) 0, Pharmacy: [facility], 164, cm, 06/22/23 20:52:00 EST, Height/Length Dosing, 95.7, kg, 06/22/23 20:52:00 EST, Weight Dosing Sodium Chloride 0.9% intravenous solution, 1,000 mL, Soln-IV, IV, Once, Stop date 06/22/23 21:31:00EST, STAT, Start date 06/22/23 21:31:00 EST, Infuse [...] days [address], [address] [place] [address] [place] (1) Additional Instructions: Patient Education Urinary Tract Infection, Adult Probl (more content not included)...Upper Valley Medical CenterComment on above:Result Comment: Electronically Signed By: Troy Treadwell DO\.br\Date and Time Signed: 06/23/23 00:33 ESTED Patient Education Noteon 41-91-5565RA Patient Education NoteObstetrics and Gynecology Urinary Tract Infection, Adult A [...] this condition includes: ? Antibiotic medicine. ? Lnqk-kda-rbgkclv medicines to treat discomfort. ? Drinking enough [...] these instructions at home: Medicines ? Take clgr-atq-mtpdoaf and prescription medicines only as told by [...] Revised: 12/27/2020 Document Revie (more content not included)...Normal [facility] Patient Summaryon [id number] Patient Summary [place] [id number] Patient Discharge Instructions Person Information Name: OSMAN COHEN Age: 22 Years Arrival Date: 06/22/2023 20:42:44 Discharge Diagnosis: AP (abdominal pain); Acute UTI Primary Care Physician: MINAL NEWMAN DO Provider Information Primary Provider: Troy Treadwell DO Advanced Product Line Manager:None The exam and treatment you received in the Emergency Department were for an urgent problem and are not intended as complete care. It is important that you follow up with a doctor, nurse practitioner,or physician?s medication assistant for ongoing care. If your symptoms [...] With: Address: When: MINAL NEWMAN [address], [address] [place] [address] Business (1) In 3 days In the event that this physician does not participate in your insurance network, please consult with your insurance company to find a nearby participating provider. Patient Education Materials: Urinary Tract Infection, Adult A MESSAGE TO ALL PATIENTS REGARDING OPIOIDS PRESCRIPTION OPIOIDS: WHAT YOU NEED TO KNOW Prescription opioids can be used to help relieve rcglwbvg-oc-jyrjtb pain and are often prescribed following a [...] and have fewer risks and side effects. Optionsmay include: ? Pain relievers such as acetaminophen, [...] unused prescription opioids: Find your community drug take- back program or [employer] mail-back program, or flush them down the toilet, following guidance from the Food and Drug Administration (www.fda.gov/Drugs/ResourcesForYou). ? Visit www.cdc.gov/drugoverdose to learn about the risks of opioids abuse and overdose. ? If you believe you may be struggling with addiction, tell your health child care nurse and ask for guidance or call [facility]ENTERA?S National Helpline at 3-000-573-ZYVY. v Source: [place] Depa (more content not included)...NormalEast Ohio Regional HospitalRAD - Preliminary Cat Scan Reporton 29-78-1115PAM - Preliminary Cat Scan [id number]#1.00TIFFNormalEast Ohio Regional HospitalBMPon 15-52-1375Bjqxo gap [Moles/Vol]13 mmol/LNormal6-16East [place] Regional HospitalComment on above:Performed By: #### [id number], 2500816, 70732915, 2133139, 1334494 ####Agustin [facility] [address] [place], [place] [address]TQG/Creat Ratio14 No BxvysCpvzta39-24OrcoiqEast Ohio Regional HospitalComment on above:Performed By: #### 4898861, 4546061, 43503820, 2374350, 5758782 ####[facility] [address] [place], [place] [address]Oowbndg [Mass/Vol]8.8 mg/dLLow8.9-11.1FGrant HospitalComment on above:Performed By: #### 1092583, 3577685, 01266218, 1656817, 5023168 ####[facility] [address] [place], [place] [address]Qesogcuc [Moles/Vol]105 mmol/EDrlpkw110-880WwtauzEast Ohio Regional Hospital Comment on above:Performed By: #### 0322811, 9669126, 35010163, 0532965, 9442448 ####[place] [address] [place], [place] [address]OL2 [Moles/Vol]26 mmol/KQeajvj69-92CgytmpEast Ohio Regional HospitalComment on above: Performed By: #### 7073476, 8663609, 99111899, 7040162, 0080746 ####[address] [address]Hsmehuhurp [Mass/Vol] 1.0 mg/dLNormal0.5-1.3FGrant HospitalComment on above:Performed By: #### 1083395, 1097006, 73396657, 4567721, 1352628 ####[place] [address] [place], [place] [address]Nazarpt [Mass/Vol]83 mg/dL Mdjsdb99-580KixmlnEast Ohio Regional HospitalComment on above:Performed By: #### 1037569, 1678664, 08840994, 7508077, 8678915 ####[address] [place], [place] [address]Lhgwbkfox [Moles/Vol]3.6 mmol/LNormal 3.5-5.3FGrant HospitalComment on above:Performed By: #### 6684942, 8134542, 63967010, 9431486, 0246003 ####[facility] [address] [address]Pyjdah [Moles/Vol]140 mmol/PIngpff229-167 [facility] [place] Regional HospitalComment on above:Performed By: #### 0996430, 9130090, 59036679, 9139318, 9696508 ####[address] [address]Lctl nitrogen [Mass/Vol]14 mg/dLNormal5-[facility] [place] Regional HospitalComment on above:Performed By: #### 7696829, 6145283, 27235447, 6486735, 9052588 ####[address] [address]EEJ w/ Auto Diffon 44-94-7470Ghjtjvap Absolute0.0 E9/LNormal0.0-0.2FGrant HospitalComment on above:Performed By: #### 1211082, 5716292, 86478318, 9206616, 6493438 ####[address] [address]Iqvijluye/100 WBC (Bld)0.4 %Normal 0.0-2.0East [place] Regional HospitalComment on above:Performed By: #### 4686902, 5098878, 51585220, 5944373, 2051488 ####[address] [address]Jsd Absolute0.1 E9/LNormal0.0-0.5FGrant HospitalComment on above:Performed By: #### 0421310, 1169511, 00552009, 3648914, 4301427 ####[address] [address]Ggvzwpdiuff/100 WBC (Bld)1.0 %Normal0.0-8.0[facility] [place] Regional HospitalComment on above:Performed By: #### 8826855, 8129687, 92026094, 8045366, 5799564 ####Agustin [address] [address]Ogyarczbdew distribution width (RBC) [Ratio]13.2 % Dqqbxw70.9-14.2FGrant HospitalComment on above:Performed By: #### 8480148, 4817382, 96148294, 8297268, 9622127 ####[address] [address]Yfjkxhfpsb (Bld) [Volume fraction] 39.0 %Oaogcz54.0-46.0[facility] [place] Regional HospitalComment on above:Performed By: #### 5584761, 4428458, 27403902, 1936024, 5051571 ####[address] [address]Eymvgbujny (Bld) [Mass/Vol] 13.0 g/dMZxicrb48.0-16.0[facility] [place] Regional HospitalComment on above:Performed By: #### 7719513, 7156083, 54285333, 1098733, 5514976 ####[address] [address]Orebz Absolute3.1 E9/LNormal 1.0-4.0[facility] [place] Regional HospitalComment on above:Performed By: #### 2717305, 4526246, 60106080, 4364201, 6725686 ####[facility] [address] [address]Lfiscmuykwu/100 WBC (Bld)27.3 %Normal 14.0-50.0East [place] Regional HospitalComment on above:Performed By: #### 2525628, 3267359, 34329413, 1881482, 6128274 ####[facility] Labo [address] [address]VCE (RBC) [Entitic mass]25.2 pgLow 27.0-34.0[facility] [place] Regional HospitalComment on above:Performed By: #### 0899777, 7682616, 58396097, 7807499, 8174577 ####[facility] Lab[address] [place] [address]ALNI (RBC) [Mass/Vol]33.0 g/dLNormal 31.4-36.0[facility] Regional HospitalComment on above:Performed By: #### 7312848, 5415552, 11388240, 4391012, 1624463 ####[facility] Lab[address] [address]ZUW (RBC) [Entitic vol]76.5 fLLow 80.0-100.0[facility] Regional HospitalComment on above:Performed By: #### 4231232, 1631360, 06608541, 1429253, 6942444 ####[address] [address]Rprg Absolute1.1 E9/LHigh0.2-1.0 [facility] Regional HospitalComment on above:Performed By: #### 1846800, 1070618, 78881332, 5411250, 8328988 ####[address] [address]Cfhbydasm/100 WBC (Bld)9.3 %Normal4.0-14.0[facility] Regional HospitalComment on above:Performed By: #### 4164789, 1740122, 08903985, 2483547, 0397359 ####[address] [address]Qvwxkx Absolute7.1 E9/LNormal2.0-7.5FGrant HospitalComment on above:Performed By: #### 6146268, 6283069, 68694877, 4059393, 8306164 ####[address] [address]Zsmbvl Auto62.0 %Jefzyr12.0-75.0[facility] Comment on above:Performed By: #### 4749868, 1088640, 48094835, 5058585, 1680267 ####[address] [address] [place] [address] Icjdldzn015.0 E9/FLxtwdm182.0-500.0[facility] Regional HospitalComment on above: Performed By: #### 4412830, 9571499, 91883557, 8823505, 9349462 ####[facility] [address] [place], [place] [address]Zwseofcl mean volume (Bld) [Entitic vol]6.5 fLNormal6.4-10.8[facility] Regional HospitalComment on above:Performed By: #### 3712766, 7903001, 79725228, 3908066, 8634725 ####[facility] [address] [place], [place] [address]GSU3.2 E12/L Normal4.3-5.9[facility] Regional HospitalComment on above:Performed By: #### 5234617, 8026474, 82646979, 7819445, 4186225 ####[facility] [address] [place] [address]ZTE82.5 E9/LHigh4.0-11.0[facility] Regional HospitalComment on above:Performed By: #### 0780442, 3699233, 59542504, 7631800, 7032513 ####[facility] [address] [place] [address]GZVXRKTLXOxrerif By: SYSTEM SYSTEM on 81-98-9998Qsdewyv [Mass/Vol]4.0 g/dLNormal3.3 - 5.0 gm/dLRemisol ChemAlbumin/Globulin [Mass ratio] 1.5 {ratio}Normal1.1 - 2.2Remisol ChemAlk Phos90 [iU]/qGfnfnj87 - 98 Int._Unit/L Remisol XrvtJXO85 [iU]/dNormal6 - 46 Int._Unit/LRemisol ChemAnion gap [Moles/Vol]13 mmol/LNormal6 - 16 mEq/LRemisol GhlfFFM64 [iU]/dNormal5 - 43 Int._Unit/LRemisol ChemBili Direct0.1 mg/dLNormal0.0 - 0.4 mg/dLRemisol ChemBili Indirect0.3 mg/dLNormal0.1 - 0.9 mg/dLRemisol ChemBili Total0.4 mg/dLNormal0.0 - 1.1 mg/dLRemisol ChemCalcium [Mass/Vol]8.8 mg/dLLow8.9 - 11.1 mg/dLRemisol ChemChloride [Moles/Vol]105 mmol/YEqvlxg018 - 111 mmol/LRemisol ChemCO2 [Moles/Vol]26 mmol/BNvewjh25 - 31 mmol/LRemisol ChemCreatinine [Mass/Vol]1.0 mg/dLNormal0.5 - 1.3 mg/dLRemisol WkqzrCKS49 mL/min/1.73 h5Qaaosz>=59mL/min/1.73 u0Wobceuw ChemGlobulin (S) [Mass/Vol]2.7 g/dLNormal1.4 - 4.0 gm/dLRemisol Chem Glucose [Mass/Vol]83 mg/wHTvgzks76 - 199 mg/dLRemisol ChemLipase Lvl15 unit/L Ulkiys90 - 58 unit/LRemisol ChemPotassium [Moles/Vol]3.6 mmol/LNormal3.5 - 5.3 mmol/LRemisol ChemProtein [Mass/Vol]6.7 g/dLNormal6.0 - 7.8 gm/dLRemisol Chem Sodium [Moles/Vol]140 mmol/EMpxdhh655 - 145 mmol/LRemisol ChemUrea nitrogen [Mass/Vol]14 mg/dLNormal5 - 21 mg/dLRemisol ChemUrea nitrogen/Creatinine [Mass ratio]14 mg/jhJpkgwt83 - 20Remisol ChemConsent for Treatmenton 32-62-2072Eivhmcf for [id number]#1.00Fairfield Medical CenterHEMATOLOGYOrdered By: SYSTEM SYSTEM on 60-50-8097Voogvtwy Absolute 0.0 E9/LNormal0.0 - 0.2 E9/LRemisol HemeBasophils/100 WBC (Bld)0.4 %Normal0.0 - 2.0 %Remisol HemeEos Absolute0.1 E9/LNormal0.0 - 0.5 E9/LRemisol Heme Eosinophils/100 WBC (Bld)1.0 %Normal0.0 - 8.0 %Remisol HemeErythrocyte distribution width (RBC) [Ratio]13.2 %Ziefxt57.9 - 14.2 %Remisol HemeHematocrit (Bld) [Volume fraction]39.0 %Rvqqxj04.0 - 46.0 %Remisol HemeHemoglobin (Bld) [Mass/Vol]13.0 g/rNEdxncs90.0 - 16.0 gm/dLRemisol HemeLymph Absolute3.1 E9/L Normal1.0 - 4.0 E9/LRemisol HemeLymphocytes/100 WBC (Bld)27.3 %Gwaedm85.0 - 50.0 %Remisol HemeMCH (RBC) [Entitic mass]25.2 pgLow27.0 - 34.0 pgRemisol HemeMCHC (RBC) [Mass/Vol]33.0 g/rLProhaz99.4 - 36.0 gm/dLRemisol HemeMCV (RBC) [Entitic vol]76.5 fLLow80.0 - 100.0 fLRemisol HemeMono Absolute1.1 E9/LHigh0.2 - 1.0 E9/L Remisol HemeMonocytes/100 WBC (Bld)9.3 %Normal4.0 - 14.0 %Remisol HemeNeutro Absolute7.1 E9/LNormal2.0 - 7.5 E9/LRemisol HemeNeutro Auto62.0 %Nzgner33.0 - 75.0 %Remisol FocpUbdnzffd354.0 E9/RNrndyd518.0 - 500.0 E9/LRemisol HemePlatelet mean volume (Bld) [Entitic vol]6.5 fLNormal6.4 - 10.8 fLRemisol HemeRBC5.2 E12/L Normal4.3 - 5.9 E12/LRemisol GqgnUYC73.5 E9/LHigh4.0 - 11.0 E9/LRemisol HemeHep Func Panelon 87-91-5770Natlkia [Mass/Vol]4.0 g/dLNormal3.3-5.0[facility] HospitalComment on above:Performed By: #### 0122413, 5604805, 73124561, 2596409, 5206793 ####[place] [place], [place] [address]Tyukjpa/Globulin [Mass ratio]1.5 {ratio}Normal1.1-2.2FGrant HospitalComment on above:Performed By: #### 4158187, 4585376, 46926428, 2753507, 9678136 ####[place] [place], [place] [address]Clo Phos90 Int._Unit/QReeiwj79-99DdqpjlEast Ohio Regional HospitalComment on above:Performed By: #### 3321152, 0987734, 68927277, 6310075, 9181270 ####[address] [address]IZJ47 Int._Unit/LNormal6-46[facility] Comment on above:Performed By: #### 7988811, 6128160, 76729578, 4447301, 8696499 ####[place] [place], [place] [address]WME74 Int._Unit/LNormal5-43[facility] HospitalComment on above:Performed By: #### 7456688, 5405238, 16059598, 2489340, 8446065 ####[place] [place], [place] [address]Fwog Direct0.1 mg/dLNormal 0.0-0.4FGrant HospitalComment on above:Performed By: #### 4078247, 9543466, 78153377, 8632482, 8005406 ####[facility] [address] [place], [place] [address]Sijn Indirect0.3 mg/dLNormal0.1-0.9[facility] HospitalComment on above:Performed By: #### 3680842, 3807553, 18538448, 3924250, 6929434 ####[facility] [address] [place], [place] [address]Oysu Total0.4 mg/dLNormal0.0-1.1FGrant HospitalComment on above:Performed By: #### 6728257, 6101043, 33947263, 6082189, 5154552 ####[facility] [address] [place], [place] [address]Icjoqvlk (S) [Mass/Vol]2.7 g/dLNormal1.4-4.0[facility] HospitalComment on above:Performed By: #### 2858361, 6726694, 69293603, 0145352, 3574269 ####[facility] [address] [place], [place] [address]Sklqcho [Mass/Vol]6.7 g/dLNormal6.0-7.8[facility] HospitalComment on above:Performed By: #### 9383685, 8667758, 18046154, 7419217, 3416844 ####[facility] [address] [place], [place] [address]Zlkskzeblk - Microbiology and Antimicrobial susceptibilityOrdered By: Rossi Govea on 28-79-3767Rjekdfti identified Cx Nom (U)1,000 cfu/ml Mixed skin contaminantsVan Wert County HospitalLipase Levelon 32-72-6516Umonbx Lvl15 unit/WDvorqf19-53HrnqlsEast Ohio Regional HospitalComment on above:Performed By: #### 4531014, 5074077, 64597071, 5141811, 7320824 ####[facility] [address] [place], [place] [address]OVIFNKFCStdoyxk By: Samaria Perez on 90-48-0481SUN.beta subunit (U) [Moles/Vol]NegativeNormalHOLDENVILLE GENERAL [facility]OS[facility]ITAL – [place] Man SeroU BetaHcg Qualon 42-72-2136IBJ.beta subunit (U) [Moles/Vol]NegativeNormalEast Ohio Regional HospitalComment on above:Performed By: #### 29267077, 7045584, 53188628 ####[address] [address]IL With Cult Reflexon 68-41-0847Owpplnwr LM Ql (Urine sed)1+ /HPFAbnormalTrace [facility] HospitalComment on above:Performed By: #### 52721208, 7909347, 46424870 ####[address] [address]Gutgzwkun Ql (U)NegativeNormalNegGalion HospitalComment on above:Performed By: #### 05002329, 8256731, 89337926 ####[address] [address]Ruutgxu (U)SL CLOUDYAbnormalClearFisher [facility] CenterComment on above:Performed By: #### 96067664, 6450241, 03011929 ####[address] [address]Jowwu (U)YELLOWNormalYellowEast Ohio Regional HospitalComment on above:Performed By: #### 68779584, 8504264, 44816152 ####[address] [address]Jibxckamjx cells.squamous LM.HPF (Urine sed) [#/Area]8-6Lgtuud3-9Nqtbrj [facility] CenterComment on above:Performed By: #### 52341403, 8771724, 98534071 ####[address] [address]Zrhiunn Test strip (U) [Mass/Vol]NegativeNormalNegativeEast Ohio Regional HospitalComment on above:Performed By: #### 05339454, 7623380, 08777991 ####[address] [address]Scsehkawqw Ql (U)TRACEAbnormal NegativeEast Ohio Regional HospitalComment on above:Performed By: #### 89013933, 7658466, 12184435 ####[address] [address]Ekodzmh (U) [Mass/Vol]NegativeNormalNegativeFormerly Vidant Duplin Hospitaler [facility] CenterComment on above:Performed By: #### 52425337, 8717271, 06757607 ####[address] [address] [place].plasma/[place].RBC (Bld) [Mass ratio]5-5Iccygv6-0Swljzo [facility] CenterComment on above:Performed By: #### 17942708, 0685877, 33040615 ####[address] [address]Hyxtcaq Ql (U) NegativeNormalNegativeEast [facility] Regional HospitalComment on above:Performed By: #### [id number], 4587735, [id number] ####[address] [address]tY (U)6.0 [pH]Invalid Interpretation Code5.0-9.0 [facility] HospitalComment on above:Performed By: #### [id number], 5825477, 68914181 ####[address] [address]Qaxrwyi (U) [Mass/Vol]1+AbnormalNegativeEast Ohio Regional HospitalComment on above:Performed By: #### [id number], 3561104, 24388396 ####[place] [address]357 Specific gravity (U) [Rel density]1.010Invalid Interpretation Code1.005-1.030 [facility] HospitalComment on above:Performed By: #### [id number], 4598021, 96059734 ####[address] [address]Wjde of Urine collection methodClean CatchNoCincinnati VA Medical CenterComment on above:Performed By: #### 74784224, 3352053, 40251186 ####[place] [address] [place] [address] Urobilinogen Qn (U)0.2 {Enrique'U}/dLNormal0.0-1.0[facility] Comment on above:Performed By: #### 82756407, 6457404, 80840197 ####[place] [address] [place], [place] [address]CJO Auto Ql (U)2+ AbnormalNegativeEast [place] Regional HospitalComment on above:Performed By: #### 61942264, 8822991, 85253680 ####[place] [address] [place], [place] [address]TFZ LM.HPF (Urine sed) [#/Area]3-18Vzustmhm6-0 [facility] [place] [facility] HospitalComment on above:Performed By: #### [id number], 0663049, 69514231 ####[facility] [address] [place] [address]VLAPQUSDPRDpsjscf By: Samaria Perez on 07-65-8212Yrvqxsdu LM Ql (Urine sed)1+ /HPFInvalid Interpretation CodeTrace/HPFH[facility] [place] [facility]A Auto SS Bilirubin Ql (U)Negative (06/22/23 9:41 PM)NormalNegativeHOLDENVILLE [facility]AL [facility] [place] [facility]A Auto SSClarity (U)Slightly Cloudy *ABN* (06/22/23 9:41 PM)Invalid Interpretation CodeClearFJACKSON C. [facility] [place] UA Auto SSColor (U)Yellow (06/22/23 9:41 PM)NormalYellowHOLDENVILLE GENERAL [facility] [place] [facility] Auto SSEpithelial cells.squamous LM.HPF (Urine sed) [#/Area]3-4 /HPFNormal0-2/HPFHOLDENVILLE [facility] [place] [facility]A Auto SSGlucose Test strip (U) [Mass/Vol]Negative (06/22/23 9:41 PM)NormalNegativeHOLDENVILLE [facility]AL [facility] [place] UA Auto SSHemoglobin Ql (U)Trace *ABN* (06/22/23 9:41 PM)Invalid Interpretation CodeNegativeHOLDENVILLE [facility]AL [facility]OS[facility] [place] [facility] Auto SSKetones (U) [Mass/Vol]Negative (06/22/23 9:41 PM)NormalNegativeHOLDENVILLE GENERAL [facility]OS[facility] [place] UA Auto SSLithium.plasma/[place].RBC (Bld) [Mass ratio]0-3 /HPFNormal0-3/HPFHOLDENVILLE [facility]AL [facility] [place] [facility]A Auto SSNitrite Ql (U)Negative (06/22/23 9:41 PM)NormalNegativeHOLDENVILLE [facility]AL [facility] [place] [facility]A Auto SSpH (U)6.0 *NA* (06/22/23 9:41 PM)Invalid Interpretation Code5.0 - 9.0[facility] [place] [facility] Auto SSProtein (U) [Mass/Vol]1+ *ABN* (06/22/23 9:41 PM)Invalid Interpretation CodeNegativeHOLDENVILLE [facility]AL [facility] [place] UA Auto SSSpecific gravity (U) [Rel density]1.010 *NA* (06/22/23 9:41 PM)Invalid Interpretation Code1.005 - 1.030H[facility] [place] [facility] Auto SSUA Spec DescClean Catch (06/22/23 9:41 PM)NormalHOLDENVILLE GENERAL [facility]OSPITAL [facility] [place] UA Auto SSUrobilinogen Qn (U)0.2002919 {Enrique'U}/dLNormal0.0 - 1.0 EU/dLHOLDENVILLE GENERAL HOSPITAL [facility] [place] UA Auto SSWBC Auto Ql (U)2+ *ABN* (06/22/23 9:41 PM)Invalid Interpretation CodeNegativeHOLDENVILLE [facility]AL [facility]OS[facility] [place] U[facility] Auto SSWBC LM.HPF (Urine sed) [#/Area]6-15 /HPFInvalid Interpretation Code0-5/HPFHOLDENVILLE GENERAL [facility]OSP[facility] [place] UA Auto SS eGFRon 45-60-2054dXBU68 mL/min/1.73 r5Dzxtmq>=59[facility] Comment on above:Order Comment: Order added by Discern Expert.Performed By: #### [id number], 1646383, 01009969, 2623745, 0039433 ####[facility] [address] [place], [place] [address]Hichjonvx 86-57-9158Ybvesyt [id number]#1.00TIFFNoThe [facility] Medicine Office/Clinic Noteon 97-24-1586Ehqhoj Medicine Office/Clinic NoteChief Complaint headache HPI Staff 22 yr old female here for headache starting this morning. pt gets migraines frequent. History of Present Illness Reviewed and agree with above documented HPI by forensic medical examiner. Portions of this record may have been created with voice recognition artificial intelligence software, specifically [employer], [employer] and or Gaudena. Substitutions may have occurred due to the inherent limitations of voice recognition and artificial intelligence software. Patient is a 22-year-old female presenting [facility], for typical type migraine, started last night, tried wnab-yqt-yauoyxu medication her migraine medication without any relief, [...] in complete sentences. Follows commands appropriately. Head: Normocephalic/atraumatic. No upper respiratory infection. No sinus infections. [...] migraine, started last night, no relief with bwwa-pel-seuckpu medication or her migraine medication, patient symptom relief with IM Toradol, no worsening headache of life, different type of headache, sudden onset type of headache, orhistory of traumatic brain injury. Patient was neurologically intact. Declined a prescription for Zofran at this time. Instructed patient to take vvcf-rhd-xmvzlzt ibuprofen and Tylenol every 8 hours as [...] medical support in addressing this problem. Your BMIand weight management will be followed at subsequent visits. Follow-up With When Contact Information NONE, XXXX [phone] Additional Instructions: Patient Education BMI for Adults Migraine Headache, Jbjj-bk-Npox Problem List/Past Medical History Ongoing BMI 35.0-35.9,adult [...] Use:. Never Smokeless Tobacco (more content not included)...[facility] CenterComment on above:Result Comment: Electronically Signed By: EDNA KIDD PA-C\.br\Date and Time Signed: 06/20/23 14:40 ESTPatient Educationon 79-35-5819Zambgif Education Neurology Migraine Headache A migraine headache [...] these instructions at home: Medicines ? Take axrq-fuc-adbvuuo and prescription medicines only as told by your doctor. ? Ask your doctor if the medicine prescribed to you: ? Requires you to avoid driving or using heavy machinery. ? Can cause trouble pooping (constipation). You may need to take these steps to prevent or treat trouble pooping: ? Drink enough fluid to keep your pee (urine) pale yellow. ? Take elts-nzp-xjchkcj or prescription medicines. ? Eat foods that [...] side or both sides of your head. Theseheadaches can also cause other symptoms. ? This condition may be treated with medicines and changes to your lifestyle. ? Keep a journal to find out what may bring on your migraine headaches. ? Contact a doctor if you get a migraine headache that is different or worse than other (more content not included)...[facility] Ambulatory Visit Summaryon 13-01-5025Rnnstkxwse Visit Summary OSMAN COHEN :2000 Visit Date:06/19/2023 [...] a day Take one tab by mouth twotimes a day Unchanged oxymetazoline nasal (Mirza-Synephrine 12 [...] you for choosing us for your care. [facility] CenterPatient Letter FTon 06-19-2023 Patient Letter [facility] [address], [place] [address] June 19, 2023 OSMAN COHEN [address] [place] [address] : 2000 Please excuse OSMAN COHEN Ramu from work . Date and/or Time of Absence: From: 06/19/23 May return to work on: 06/20/23 Restrictions: None Comments: Please excuse due to an acute illness. Provider Signature: Edna Kidd PA-C [facility] [address] [place] [address] NoCincinnati VA Medical CenterQuick Strepon 06-12-2023S. pyogenes Org specific cx Ql (Throat)NegativeNo3 day Blinds Other QuBetterWorks StrepVisual Realm Other Outside Recordson 56-67-4298Bzhmltb Records [id number]#1.00[facility] CenterConsent for Treatmenton 80-92-0454Oxzlouu for Treatment [id number]#1.00[facility] Medical CenterDischarge Instructionson 26-41-7850Ckauilkkd Instructions [id number]#1.00[facility] Clinical Summaryon 55-43-8365EB Clinical Summary [address] [address] ED Clinical Summary Person Information Name: OSMAN COHEN/[facility] Age: 22 Years : 2000 Sex: Female Language: Dominican PCP: NONE, XXXX Marital Status: Single Visit [...] 04/04/2023 13:56:12 04/04/2023 13:56:12 04/04/2023 13:56:12 ADDRESS: [place] [id number] PHYS DOC NOTES: MEDICAL INFORMATION: Prescriptions Given: Medications [...] Contusion Follow up: With: Address: When: Nicholas Huerta [address] [place], [place] [phone] Business (1) In 3 days 04/07/2023 Comments: Return to the emergency room if your pain gets worse or any new symptoms DIAGNOSIS: 1:Contusion of right footNormalFisher Victoria Medical CenterED Note-Physicianon 39-83-0451BK Note-PhysicianBasic Information Time Seen: Tim Knight M.D. 04/04/2023 12:25 Chief Complaint Patient to er with right 4th and 5th toe pain, since yesterday. Patient stubbed toes on water slide. Patient ambulatory in triage, rates pain 11/07. Patient took ibuprofen at 0630 today. History of Present Illness The patient is a 22-year-old female who presented to the emergency room with right fourthand fifth toe pain. 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 She does not want to claim it is [employer]. The x-ray shows no fracture no dislocation. [...] medications Follow-up With When Contact Information Nicholas Huerta In 3 days 04/07/[address] [phone] Business (1) Additional Instructions: Return to the [...] acute abnormality Read By: Tim Knight M.D. [facility] Medical CenterComment on above:Result Comment: Electronically Signed By: Antonia Singh, Tim Feng\.br\Date and Time Signed: 04/04/2313:41 ESTED Patient Education Noteon 13-75-3893LF Patient Education NoteOrthopedics How to Use a Cast Shoe A [...] your health care provider. ? Follow the timber spotter's instructions for use. ? Tighten and properly [...] provider. Document Revised: 03/10/2021 Document Reviewed: 03/10/2021 [employer]on Patient Education ? 2022 [employer] Foot Contusion A foot contusion is [...] may be recommended to support your foot. Nwzl-ftx-ptmlafw anti-inflammatory medicines may also be recommended for [...] or lying down. General instructions ? Take rwkr-jxf-aeuoape and prescription medicines only as told by [...] redness, swelling, or sam (more content not included)...[facility] Patient Summaryon 46-95-8531UO Patient Summary [place] [id number] Patient Discharge Instructions Person Information Name: OSMAN COHEN Age: 22 Years Arrival Date: 04/04/2023 12:12:07 Discharge Diagnosis: 1:Contusion of right foot Primary Care Physician: NONE, XXXX Provider Information Primary Provider: Tim Knight M.D. Advanced Product Line Manager:None The exam and treatment you received in the Emergency Department were for an urgent problem and are not intended as complete care. It is important that you follow up with a doctor, nurse practitioner,or physician?s medication assistant for ongoing care. If your symptoms become worse or you do not improve as expected and you are unable to reach your usual health care provider, you should return to the Emergency Department. We are available 24 hours a day. SOMAN COHEN has been given the following list of patient education materials, prescriptions and follow-up instructions: Follow-up Instructions: With: Address: When: Nicholas Deanna [address] [place], [place] [id number] [phone] Business (1) In 3 days 04/07/2023 Comments: [...] opioids can be used to help relieve bnikdtwb-ws-yosruj pain and are often prescribed following a [...] and have fewer risks and side effects. Optionsmay include: ? Pain relievers such as acetaminophen, [...] unused prescription opioids: Find your community drug take- back program or yourpharmacy mail-back program, or flush them down the toilet, following guidance from the Food and Drug Administration (www.fda.gov/Drugs/ResourcesForYou). ? Visit www.cdc.gov/drugoverdose to learn about the risks of opioids abuse and overdose. ? If you believe you may be struggling with addiction, tell your health child care nurse and ask for guidance o (more content not included)...[facility] CenterXR Foot 3+ Views Righton 77-53-3149PJ Foot 3+ Views Right Exam Date/Time: 04/04/2023 [...] LO Technologist: SOCRATES Technical Comments Radiation Dose: sergo Peter in mGy = na DAP = naNorCleveland Clinic Fairview HospitalCT Head or Brain w/o Contraston 95-94-0945FG Head or Brain w/o ContrastExam Date/Time: 01/29/2023 13:40 EDT Reason for Exam: [...] REPORT Dictated: 01/29/2023 1:46 pm Naveen Boss MD. Signed (Electronic Signature): 01/29/2023 1:46 pm Signed by: Naveen Boss MD Transcribed by: LO Technologist: JLWUpper Valley Medical CenterConsent for Treatmenton 68-58-4716Rrnmaiq for Treatment [id number]#1.00CD:127[facility] CenterDischarge Instructionson 40-07-0063Vofzcrcze Instructions [id number]#1.00CD:127[facility] Clinical Summaryon 48-39-1113YM Clinical Summary [place] [id number] ED Clinical Summary Person Information Name: OSMAN COHEN [facility] Age: 22 Years : 2000 Sex: Female Language: Dominican PCP: NONE, XXXX Marital Status: Single Visit [...] 15:02:03 01/29/2023 15:02:03 01/29/2023 15:02:03 ADDRESS: [place] [id number] [facility] DOC NOTES: MEDICAL INFORMATION: Prescriptions Given: [...] Cause Follow up: With: Address: When: Jarett Post [address], [place] [address] In 3 days 02/01/2023 Comments: Return to the emergency room if your headache recurs or any new symptoms. DIAGNOSIS: 1:HeadacheNormalFisher Victoria Medical CenterED Note-Physicianon 50-54-8951WC Note-PhysicianBasic Information Time Seen: Tim Knight M.D. 01/29/2023 [...] and Complexity of Problems Differential Diagnosis: [] [facility] Data External documents reviewed: [] [...] better. [facility] will [facility] She is instructed to return to [...] Push, Once, Stop date 01/29/23 13:10:00 EDT, STAT,Start date 01/29/23 13:10:00 EDT, 01/29/23 13:10:00 EDT metoclopramide, 10 mg = 2 mL, Injection, IV Push, Once, Stop date 01/29/23 13:10:00 EDT, STAT, Start date 01/29/23 13:10:00 EDT, 01/29/23 13:10:00 EDT Sodium Chloride 0.9% intravenous solution, 1,000 mL, Soln-IV, IV, Once, Stop date 01/29/23 13:10:00EDT, STAT, Start date 01/29/23 13:10:00 EDT, Infuse [...] medications Follow-up With When Contact Information Jarett Psot In 3 days 02/01/2023 EDT [address] [place] [address] [place] [address]- Additional Instructions: Return to the emergency room if your headache recurs or any new symptoms. Patient Education General Headache Without Cause Problem List/Past Medical History Ongoing No qualifying data Historical Migraine Medications Inpatient No active inpatient medications Home Naprosyn 500 mg Tab, 500 mg= 1 tab(s), Or (more content not included)...Normal [facility] HospitalComment on above:Result Comment: Electronically Signed By: Antonia Singh, Tim Feng\.br\Date and Time Signed: 01/29/2318:16 EDTED Patient Education Noteon 13-26-4949OR Patient Education NoteNeurology General Headache Without Cause A headache is pain or discomfort felt around the head or neck area. There are many causes and typesof headaches. A few common types include: ? Tension headaches. ? Migraine headaches. ? Cluster headaches. ? Chronic daily headaches. Sometimes, the specific cause of a headache may not be found. Follow these instructions at home: Watch your condition for any changes. Let your health care provider know about them. Take these steps to help with your condition: Managing pain ? Take zyhy-eff-puyokft and prescription medicines only as told by [...] each night, or the amount recommended by yourhealth care provider. ? Keep all follow-up visits. [...] provider. Document Revised: 10/15/2021 Document Reviewed: 10/15/2021 [employer] Patient Education ? 2022 [employer] ED Patient Summaryon [id number] Patient Summary [address] [address] Patient Discharge Instructions Person Information Name: OSMAN COHEN Age: 22 Years Arrival Date: 01/29/2023 12:40:42 Discharge Diagnosis: 1:Headache Primary Care Physician: NONE, XXXX Provider Information Primary Provider: Tim Knight M.D. Advanced Product Line Manager:None The exam and treatment you received in the Emergency Department were for an urgent problem and are not intended as complete care. It is important that you follow up with a doctor, nurse practitioner,or physician?s medication assistant for ongoing care. If your symptoms become worse or you do not improve as expected and you are unable to reach your usual health care provider, you should return to the Emergency Department. We are available 24 hours a day. OSMAN COHEN has been given the following list of patient education materials, prescriptions and follow-up instructions: Follow-up Instructions: With: Address: When: Jarett Sincere [address] [facility], [place] [address] In 3 days 02/01/2023 Comments: Return to [...] opioids can be used to help relieve ecfjxcvc-lp-rxmjqp pain and are often prescribed following a [...] and have fewer risks and side effects. Optionsmay include: ? Pain relievers such as acetaminophen, [...] unused prescription opioids: Find your community drug take- back program or [employer] mail-back program, or flush them down the toilet, following guidance from the Food and Drug Administration (www.fda.gov/Drugs/ResourcesForYou). ? Visit www.cdc.gov/drugoverdose to learn about the risks of opioids abuse and overdose. ? If you believe you may be struggling with addiction, tell your health child care nurse and ask for guidance or call SAMA?S National Helpline at 1-8 (more content not included)...[facility] Prescriptions/Work Noteson 48-01-9354Rudwsrmoicwsz/Work Notes [id number]#1.00CD:127NormalEast [place] Regional HospitalAuto Diffon 33-63-9752Wfqwjyryh/100 WBC (Bld)0.4 %Normal0.0-2.0[facility] Medical CenterComment on above:Order Comment: Order Added by Discern Expert.Performed By: #### [id number], 6788049, 4832399, 78493140, 8456936, 70696683 #### [facility] [address] [place] [address]Pxqtwhkmv/Leukocytes Auto (Bld) [Pure # fraction]0.0 E9/LNormal 0.0-0.2FGrant HospitalComment on above:Order Comment: Order Added by Discern Expert.Performed By: #### [id number], 3582296, 2323615, 42906533, 3225776, 89883137 #### [facility] [address] [place] [address]Qjgndflcwzk/100 WBC (Bld)1.1 %Normal0.0-8.0[facility] HospitalComment on above:Order Comment: Order Added by Discern Expert.Performed By: #### [id number], 3701186, 8249826, 89954921, 9366594, 56074863 #### [facility] [address] [place] [address]Oaniwxzwvoj/Leukocytes Auto (Bld) [Pure # fraction]0.1 E9/L Normal0.0-0.5FGrant HospitalComment on above:Order Comment: Order Added by Discern Expert.Performed By: #### [id number], 7680657, 8539021, 94415134, 5122869, 54187233 #### [facility] [address] [place] [address]Kkdrkwejara/100 WBC (Bld)35.0 %Vyoptk03.0-50.0[facility] HospitalComment on above:Order Comment: Order Added by Discern Expert. Performed By: #### [id number], 9815645, 2854647, 31080789, 8863895, 97404543 #### [facility] [address] [place] [address]Yhdlbltogmn/Leukocytes Auto (Bld) [Pure # fraction]2.7 E9/L Normal1.0-4.0[facility] HospitalComment on above:Order Comment: Order Added by Discern Expert.Performed By: #### 39476109, 9049030, 5141421, 77692850, 3800992, 78190501 #### [facility] [address] [place] [address]Kbeighybf/100 WBC (Bld)6.5 %Normal4.0-14.0[facility] HospitalComment on above:Order Comment: Order Added by Discern Expert.Performed By: #### 99518863, 5940010, 5467415, 67502950, 5310598, 30094215 #### [facility] [address] [place] [address]Nbsjfffki/Leukocytes Auto (Bld) [Pure # fraction]0.5 E9/LNormal 0.2-1.0[facility] HospitalComment on above:Order Comment: Order Added by Discern Expert.Performed By: #### 27335949, 0769465, 2688192, 65841925, 0786832, 05181093 #### [facility] [address] [place] [address]Nxydzotwcxp/100 WBC (Bld)57.0 %Rmcllq50.0-75.0[facility] HospitalComment on above:Order Comment: Order Added by Discern Expert. Performed By: #### [id number], 4085566, 8023627, 68570273, 7774919, 66780042 #### [facility] [address] [place] [address]Sqrjcycqbjx/Leukocytes Auto (Bld) [Pure # fraction]4.5 E9/L Normal2.0-7.5FGrant HospitalComment on above:Order Comment: Order Added by Discern Expert.Performed By: #### 62038334, 0438580, 8594817, 23547686, 5968825, 38015103 #### [facility] [address] [place] [address]T hCG Qualon 58-54-4734Ojoe hCG QlNegativeNormalEast Ohio Regional HospitalComment on above:Performed By: #### [id number], 7801538, 1391872, 07415294, 5030707, 12628808 #### [facility] [address] [place] [address]UHY w/ Auto Diffon 47-29-0533Jdkkiegdeke distribution width (RBC) [Ratio]13.1 %Ricbsx16.9-14.2FGrant HospitalComment on above: Performed By: #### 60567816, 4136059, 0962711, 73748978, 0765449, 00190178 #### [facility] [address] [place] [address]Tdyhwvivej (Bld) [Volume fraction]38.7 %Pmbqzw96.0-46.0[facility] HospitalComment on above:Performed By: #### 50409513, 8758733, 2255635, 97996405, 3445345, 73467549 #### [facility] [address] [place] [address]Badjdolejm (Bld) [Mass/Vol]13.0 g/mOSdkhnh17.0-16.0[facility] HospitalComment on above:Performed By: #### 71939762, 2261748, 2893229, 65171493, 1073586, 91383168 #### [facility] [address] [place] [address]EVS (RBC) [Entitic mass]26.2 pgLow27.0-34.0[facility] HospitalComment on above:Performed By: #### [id number], 6323242, 1142860, 69019872, 0430815, 64450300 #### [facility] [address] [place] [address]BWHR (RBC) [Mass/Vol]33.7 g/uDPzweik70.4-36.0[facility] HospitalComment on above:Performed By: #### 79012573, 8446200, 3189367, 75449444, 1409398, 37203531 #### [facility] [address] [place] [address]QJM (RBC) [Entitic vol]77.7 fLLow80.0-100.0[facility] HospitalComment on above:Performed By: #### 11697076, 7257172, 2958912, 31255476, 9903460, 90099911 #### [facility] [address] [place] [address]Mudfewhr mean volume (Bld) [Entitic vol]7.0 fLNormal6.4-10.8 [facility] HospitalComment on above:Performed By: #### 05329012, 4449602, 9208429, 15338935, 0610967, 03910579 #### [facility] [address] [place] [address]Rxcfwlumu (Bld) [#/Vol]310.0 E9/KFpgvqf187.0-500.0[facility] HospitalComment on above:Performed By: #### 85692123, 5258002, 1961864, 42337381, 5401961, 79785109 #### [facility] [address] [place] [address]SIW (Bld) [#/Vol]5.0 E12/LNormal4.3-5.9East [facility] Regional HospitalComment on above:Performed By: #### [id number], 6259589, 4999962, 07561721, 3414628, 34942189 #### [facility] [address] [place] [address] 41683KTM corrected for nucl RBC Auto (Bld) [#/Vol]7.8 E9/LNormal 4.0-11.0[facility] HospitalComment on above:Performed By: #### [id number], 9023062, 1186584, 85748017, 4378337, 67642149 #### [facility] [address] [place] [address] 71240UBWEMDFXFRhlmhdv By: SYSTEM SYSTEM on 51-29-0612Rubyedm [Mass/Vol]3.8 g/dLNormal3.3 - 5.0 gm/dLFTMC RemisolAlbumin/Globulin [Mass ratio] 1.2 {ratio}Normal1.1 - 2.2[facility] RemisolALP [Catalytic activity/Vol]72 [iU]/d Izgysr68 - 98 Int._Unit/LFTMC RemisolALT No additional P-5'-P [Catalytic activity/Vol]19 [iU]/dNormal6 - 46 Int._Unit/LFTMC RemisolAnion gap [Moles/Vol]8 mmol/LNormal6 - 16 mEq/LFTMC RemisolAST [Catalytic activity/Vol]18 [iU]/dNormal 5 - 43 Int._Unit/LFTMC RemisolBilirubin [Mass/Vol]0.5 mg/dLNormal0.0 - 1.1 mg/dL [facility] RemisolCalcium [Mass/Vol]9.1 mg/dLNormal8.9 - 11.1 mg/dLFTMC Remisol Chloride [Moles/Vol]109 mmol/HIvnvxg362 - 111 mmol/LFTMC RemisolCO2 [Moles/Vol] 25 mmol/YRtjkvr81 - 31 mmol/LFTMC RemisolCreatinine [Mass/Vol]0.7 mg/dLNormal0.5 - 1.3 mg/dLFTMC RemisolGFR/1.73 sq M.predicted among non-blacks MDRD (S/P/Bld) [Vol rate/Area]127 mL/min/1.73 t8Oxoqbs>=59mL/min/1.73 m2[facility] Chem SGlobulin (S) [Mass/Vol]3.3 g/dLNormal1.4 - 4.0 gm/dLFTMC RemisolGlucose [Mass/Vol]105 mg/dL Igybbj65 - 199 mg/dLFTMC RemisolPotassium [Moles/Vol]3.3 mmol/LLow3.5 - 5.3 mmol/LFTMC RemisolProtein [Mass/Vol]7.1 g/dLNormal6.0 - 7.8 gm/dLFT[facility] Remisol Sodium [Moles/Vol]139 mmol/JZssqfv893 - 145 mmol/LFC RemisolUrea nitrogen [Mass/Vol]9 mg/dLNormal5 - 21 mg/dLH[facility]ENVIL[facility] [place] RemisolUrea nitrogen/Creatinine [Mass ratio]13 mg/inCikoce91 - 20[facility] RemisolCMPon 79-36-6759Mklmohu [Mass/Vol]3.8 g/dLNormal3.3-5.0[facility] HospitalComment on above:Performed By: #### [id number], 8848777, 7453630, 95480762, 4895184, 64871354 #### [facility] [address] [place] [address] 71393Ghdfpbm/Globulin (S) [Mass conc ratio]1.5Hqczqf4.1-2.2FGrant HospitalComment on above:Performed By: #### 05822806, 2505547, 6452251, 04025706, 1546560, 11167548 #### [facility] [address] [place] [address] 92852OOT [Catalytic activity/Vol]72 Int._Unit/ZPsrwme58-46NlemgqEast [place] Regional HospitalComment on above:Performed By: #### 70574764, 3731977, 3591053, 22473625, 0878696, 61663045 #### [facility] [address] [place] [address] 92835PWZ No additional P-5'-P [Catalytic activity/Vol]19 Int._Unit/L Normal6-46[facility] [place] [facility] HospitalComment on above:Performed By: #### 09340292, 0236508, 1781495, 53720526, 8253512, 60975539 #### [facility] [address] [place] [address] 77120DFU [Catalytic activity/Vol]18 Int._Unit/LNormal5-43[facility] [place] [facility] HospitalComment on above:Performed By: #### 33989161, 0350384, 5904906, 55622634, 9736130, 36998168 #### [facility] [address], [place] [address]Mgcyexqqu [Mass/Vol]0.5 mg/dLNormal0.0-1.1FGrant HospitalComment on above:Performed By: #### 05436004, 9340787, 2803835, 03015779, 7522511, 76105546 #### [facility] [address] [place] [address] 81366Cxlcofqvqp [Mass/Vol]0.7 mg/dLNormal0.5-1.3FGrant HospitalComment on above:Performed By: #### 55057777, 3995022, 0896655, 65563737, 8414507, 65444470 #### [facility] [address] [place] [address] 60944Yawqvxsl (S) [Mass/Vol]3.3 g/dLNormal1.4-4.0[facility] [place] [facility] HospitalComment on above:Performed By: #### 66446729, 9714552, 2455253, 28778831, 4667690, 58789908 #### [facility] [address] [place] [address] 32005Akvbzgd [Mass/Vol]7.1 g/dLNormal6.0-7.8[facility] [place] [facility] HospitalComment on above:Performed By: #### 38992003, 2526899, 7112645, 43398593, 0443845, 33251071 #### [facility] [address] [place] [address] 45477Vakp nitrogen [Mass/Vol]9 mg/dLNormal5-21[facility] [place] [facility] HospitalComment on above:Performed By: #### 57704192, 1633229, 7703997, 10527207, 4906863, 48935383 #### [facility] [address] [place] [address] 14148Pujm nitrogen/Creatinine [Mass ratio]13 No OombuIomntl74-32 [facility] [place] [facility] HospitalComment on above:Performed By: #### 12733970, 7569806, 2156816, 79980461, 2331636, 55497054 #### [facility] [address], [place] [address]Dtrvl gap [Moles/Vol]8 mmol/LNormal6-16[facility] [place] Regional HospitalComment on above:Performed By: #### 06535285, 3311385, 7100156, 56774809, 1902512, 11249693 #### [facility] [address], [place] [address]Yxuuszq [Mass/Vol]9.1 mg/dLNormal8.9-11.1[facility] Medical CenterComment on above:Performed By: #### 86166887, 5424393, 8083690, 78300215, 4400754, 08627799 #### [facility] [address], [place] [address]Gojywvsn [Moles/Vol]109 mmol/BEldrvw600-919JrclljEast Ohio Regional HospitalComment on above:Performed By: #### 39053015, 2313968, 0375146, 18074361, 5259823, 81460647 #### [facility] [address], [place] [address]DS2 [Moles/Vol]25 mmol/CLbetxc39-81YlprixEast [facility] Hospital Comment on above:Performed By: #### 20140941, 6254992, 3636550, 31936021, 6898528, 83514373 #### [facility] [address], [place] [address]Zecnngu [Mass/Vol]105 mg/sIMrntpc68-359LzczbpEast Ohio Regional HospitalComment on above:Result Comment: If this glucose result represents a fasting glucose, interpretation should refer tothe following reference range: 55-99 mg/dLPerformed By: #### 21324624, 3707878, 0532791, 39705284, 9135661, 74661281 #### [facility] [address], [place] [address]Cbuthciug [Moles/Vol]3.3 mmol/LLow3.5-5.3[facility] Medical CenterComment on above:Performed By: #### 03229047, 6157814, 8848947, 56059861, 4072489, 93510773 #### [facility] [address], [place] [address]Wpdyvy [Moles/Vol]139 mmol/RAhzrvn592-353DgbxlwEast Ohio Regional HospitalComment on above:Performed By: #### 80356452, 3632390, 2975745, 42825520, 4505655, 29548624 #### [facility] [address], [place] [address]TILPBXIAWAJGazdjvc By: Navid Scott on 38-32-5928eDHM Coag (PPP) [Time]31.3 kHmruiy83.1 - 36.5 second(s)[facility] Auto CoagINR Coag (PPP) [Relative time]1.1 {INR}Invalid Interpretation CodeHOLDENVILLE GENERAL HOSPITAL [facility] [place] Auto CoagPT Coag (PPP) [Time]12.0 sNormal9.4 - 12.5 second(s)[facility] Auto CoagConsent for Treatmenton 18-73-1990Hwrmqzj for Treatment [id number]#1.00CD:[address] [place], [place] [address]Discharge Instructionson 58-01-9445Vsgbjtfeh Instructions [id number]#1.00CD:127[facility] Clinical Summaryon 08-44-7780TT Clinical Summary [address] [address] ED Clinical Summary Person Information Name: OSMAN COHEN [place] Age: 22 Years : 2000 Sex: Female Language: Dominican PCP: MINAL NEWMAN DO Marital Status: Single Visit Id: Visit Reason: Headache; Nose Bleed Reevaluation; HEADACHE/LT HEADED/BLOODY NOSE EARLIER Speciality:Acuity: 4 Enc Type: Emergency Med Service: Emergency [...] 17:03:47 01/16/2023 17:03:47 01/16/2023 17:03:47 ADDRESS: [address] [place] [id number] PHYS DOC NOTES: MEDICAL INFORMATION: Prescriptions Given: New Medications [facility] [id number], [address] [place], [place] [id number], [phone] oxymetazoline nasal (Mirza-Synephrine 12 Hour Extra Moisturizing [...] Migraine Headache Follow up: With: Address: When: [place] [phone] Business (1) In 3 days 01/19/2023 With: Address: When: MINAL NEWMAN [address], [facility] [address] [place], [place] [phone] Business (1) In 3 days DIAGNOSIS: Epistaxis; MigraineNormalFisher Peter Medical CenterED Note-Physicianon 67-30-8036TV Note-PhysicianBasic Information Time Seen: Gus Mcgowan DO 01/16/2023 [...] spray(s), Nasal, BID, 15 mL, Refill(s) 0, [facility] [id number], 164, cm,01/16/23 15:42:00 EDT, Height/Length Dosing, 97.8, kg, 01/16/23 15:42:00 EDT, Weight Dosing Automated Diff Beta hCG Qual CBC w/ Auto Diff Comprehensive Metabolic Panel eGFR PT & PTT Disposition Plan Discharge Prescription List Prescriptions Mirza-Synephrine 12 Hour Extra Moisturizing 0.05% nasal spray, 2 spray(s), Nasal, BID Follow-up With When Contact Information [facility] In 3 days 01/19/2023 EDT [address] [place] [address]- Business (1) Additional Instructions: MINAL NEWMAN In 3 days [address], [address] [place] [address]- Business (1) Additional Instructions: Patient Education Nosebleed, [...] 15:58:00) Lymph Auto: 35 % (01/16/23 15:58:00) [place] Auto: 6.5 % (01/16/23 15:58:00) Eos Auto: 1.1 % (01/16/23 (more content not included)...[facility] CenterComment on above:Result Comment: Electronically Signed By: Gus Mcgowan DO\.br\Date and Time Signed: 01/16/23 16:56EDTED Patient Education Noteon 34-73-3816GT Patient Education NoteENT Nosebleed, Adult A nosebleed is when blood [...] again. Do not release pressure before that time.If there is still bleeding, repeat the pinching [...] the medicines or if you should adjust thedose. ? Do not stop taking medicines that your health care provider has recommended unless he or she tells you to stop taking them. ? If your nosebleed was caused by dry mucous membranes, use mmtn-yvt-wudzsdu saline nasal spray or gel and a humidifier as told by your health care provider. This will keep the mucous membranes moistand allow them to heal. If you need [...] provider. Document Revised: 03/14/2020 Document Reviewed: 03/14/2020 [employer] Patient Education ? 2021 [employer]View. Neurology Migraine Headache A migraine headache is [...] or caused by: ? (more content not included)...[facility] Patient Summaryon 81-00-0490ZR Patient Summary [place] [id number] Patient Discharge Instructions Person Information Name: OSMAN COHEN Age: 22 Years Arrival Date: 01/16/2023 15:34:36 Discharge Diagnosis: Epistaxis; Migraine Primary Care Physician: MINAL NEWMAN DO Provider Information Primary Provider: Gus Mcgowan DO Advanced Product Line Manager:None The exam and treatment you received in the Emergency Department were for an urgent problem and are not intended as complete care. It is important that you follow up with a doctor, nurse practitioner,or physician?s medication assistant for ongoing care. If your symptoms become worse or you do not improve as expected and you are unable to reach your usual health care provider, you should return to the Emergency Department. We are available 24 hours a day. OSMAN COHEN has been given the following list of patient education materials, prescriptions and follow-up instructions: Follow-up Instructions: With: Address: When: [facility] [address] [place] [address] Business (1) In 3 days 01/19/2023 With: Address: When: MINAL TRENT [address], [address] [place] [address] Business (1) In 3 days In the event that this physician does not participate in your insurance network, please consult with your insurance company to find a nearby participating provider. Patient Education Materials: Nosebleed, Adult; Migraine Headache A MESSAGE TO ALL PATIENTS REGARDING OPIOIDS PRESCRIPTION OPIOIDS: WHAT YOU NEED TO KNOW Prescription opioids can be used to help relieve rmbzyytv-em-eypalz pain and are often prescribed following a [...] and have fewer risks and side effects. Optionsmay include: ? Pain relievers such as acetaminophen, [...] unused prescription opioids: Find your community drug take- back program or [employer] mail-back program, or flush them down the toilet, following guidance from the Food and Drug Administration (www.fda.gov/Drugs/ResourcesForYou). ? Visit www.cdc.gov/drugoverdose to learn about the risks of opioids abuse and overdose. ? If you believe you may be struggling with addiction, tell y (more content not included)...[facility] CenterHEMATOLOGYOrdered By: SYSTEM SYSTEM on 95-79-5202Vqclhrmrq/100 WBC (Bld)0.4 %Normal0.0 - 2.0 %[facility] HemeAutoSS Basophils/Leukocytes Auto (Bld) [Pure # fraction]0.0 E9/LNormal0.0 - 0.2 E9/L FT HemeAutoSSEosinophils/100 WBC (Bld)1.1 %Normal0.0 - 8.0 %[facility] HemeAutoSS Eosinophils/Leukocytes Auto (Bld) [Pure # fraction]0.1 E9/LNormal0.0 - 0.5 E9/L [facility] HemeAutoSSLymphocytes/100 WBC (Bld)35.0 %Vslhks14.0 - 50.0 %[facility] HemeAutoSS Lymphocytes/Leukocytes Auto (Bld) [Pure # fraction]2.7 E9/LNormal1.0 - 4.0 E9/L [facility] HemeAutoSSMonocytes/100 WBC (Bld)6.5 %Normal4.0 - 14.0 %[facility] HemeAutoSS Monocytes/Leukocytes Auto (Bld) [Pure # fraction]0.5 E9/LNormal0.2 - 1.0 E9/L [facility] HemeAutoSSNeutrophils/100 WBC (Bld)57.0 %Cudjkp30.0 - 75.0 %[facility] HemeAutoSS Neutrophils/Leukocytes Auto (Bld) [Pure # fraction]4.5 E9/LNormal2.0 - 7.5 E9/L [facility] HemeAutoSSHEMATOLOGYOrdered By: Ana Maria Weinberg on 44-01-1338Yonzyyqtejq distribution width (RBC) [Ratio]13.1 %Dempeu78.9 - 14.2 %[facility] HemeAutoSS Hematocrit (Bld) [Volume fraction]38.7 %Zacoqs77.0 - 46.0 %[facility] HemeAutoSS Hemoglobin (Bld) [Mass/Vol]13.0 g/fPMkdkmi30.0 - 16.0 gm/dLFTMC HemeAutoSSMCH (RBC) [Entitic mass]26.2 pgLow27.0 - 34.0 pgFTMC HemeAutoSSMCHC (RBC) [Mass/Vol] 33.7 g/vIPgueji00.4 - 36.0 gm/dLFTMC HemeAutoSSMCV (RBC) [Entitic vol]77.7 fLLow 80.0 - 100.0 fLFTMC HemeAutoSSPlatelet mean volume (Bld) [Entitic vol]7.0 fL Normal6.4 - 10.8 fLFTMC HemeAutoSSPlatelets (Bld) [#/Vol]310.0 E9/RPbbhcm664.0 - 500.0 E9/LFT[facility] HemeAutoSSRBC (Bld) [#/Vol]5.0 E12/LNormal4.3 - 5.9 E12/LFT[facility] HemeAutoSSWBC corrected for nucl RBC Auto (Bld) [#/Vol]7.8 E9/LNormal4.0 - 11.0 E9/LFTMC HemeAutoSSPT & PTTon 95-12-3521tGTF Coag (PPP) [Time]31.3 second(s) Lweazr64.1-36.5FGrant HospitalComment on above:Result Comment: Parameter 15 days - 4 weeks 1 - 5 months 6 - 11 months 1 - 5 years 6 - 10 years 11 - 17 years PTT Mean: 35.4 (27.6-45.6) Mean: 33.5 (24.8-40.7) Mean: 32.4 (25.1-40.7) Mean: 31.6 (24.0-39.2) Mean: 31.6 (26.9-38.7) Mean: 31.0 (24.6-38.4) Pediatric Reference ranges were obtained from a study by Demario Souza et al. prepared from 1437 samples obtained at 7 different centers using the same coagulation reagent and instrumentation as [facility]. Currently there are no coagulation studies available worldwide for children to 14 days, andno normal ranges. Heparin therapeutic range (represented by Anti-Factor Xa activity of 0.2 - 0.4 U/mL) corresponds to PTT of 56.6 - 109.0 sec.Performed By: #### [id number], 2274600, 0933351, 99419996, 5363462, 78721633 #### [facility] [address], [place] [address]KPK Coag (PPP) [Relative time]1.1 {INR}Invalid Interpretation CodeSabasKennedy Krieger InstituteComment on above:Result Comment: INR results are specifically intended to assess patients stabilized on long-term Anticoagulation therapy suggested INR?s ?Less Intensive Anticoagulation? 2.0 ? 3.0 Conventional Range 3.0 ? 4.5Performed By: #### 14820982, 9503077, 0350014, 67426520, 0914919, 27501655 #### [facility] [address], [place] [address]PK Coag (PPP) [Time]12.0 second(s)Normal9.4-12.5FGrant HospitalComment on above:Result Comment: 15 days - 4 weeks 1 - 5 months 6 -11 months 1-5 years 6-10 years 11 -17 years Mean: 11.2 (9.5-12.6) Mean: 11.0 (9.7-12.8) Mean: 11.0 (9.8-13.0) Mean: 11.3 (9.9-13.4) Mean: 11.7 (10.0-14.6) Mean: 11.8 (10.0 - 14.1) Pediatric Reference ranges were obtained from a study by eleni Izquierdo al. prepared from 1437 samples obtained at 7 different centers using the same coagulation reagent and instrumentation as [facility]. Currently there are no coagulation studies available worldwide for children to 14 days, andno normal ranges.Performed By: #### 87835518, 9765234, 5022400, 22586631, 0244768, 49284445 #### [facility] [address], [place] [address]Cydmqfvskdmcu/Work Noteson 15-26-4288Ndahqoolgkzhi/Work Notes [id number]#1.00CD:127NormalFisher Sinai Hospital of BaltimoreEROLOGYOrdered By: Navid Scott on 28-33-9076Btfy hCG QlNegative (01/16/23 3:58 PM)NormalHOLDENVILLE [facility] Man SeroeGFRon 09-11-8520TDC/1.73 sq M.predicted among non-blacks MDRD (S/P/Bld) [Vol rate/Area]127 mL/min/1.73 c9Tfjeog>=59 [facility] HospitalComment on above:Order Comment: Order added by Discern Expert.Result Comment: Chronic kidney disease could be indicated at eGFR's of less than 60 mL/min/1.73m2. Kidney failure is indicated at less than 15 mL/min/1.73m2.Performed By: #### [id number], 0749569, 7842446, 31906112, 2927376, 03453250 #### [facility] [address], [place] [address]Wdfnhwodm erythrocytes count in urine sediment (number/area) Ordered By: Tejamarvin Beth on 93-14-5354VJW Auto (Urine sed) [#/Area]3-4 [HPF] 0-4FPremier HealthAutomated leukocytes count in urine sediment (number/area)Ordered By: Teja Carrillomond on 28-02-2109DSD Auto (Urine sed) [#/Area]1-2 [HPF]0-4FPremier HealthBilirubin Test strip Ql (U) Ordered By: Teja Beth on 08-71-5212Wevuljbbs Ql (U)NegativeNegative [facility] HospitalCOVID CepheidOrdered By: Teja Beth on 98-56-4196NACA-CoV-2 (COVID-19) Ab IA QlNegativeNegativeWilson Street HospitalComment on above:This is a duplicate Cepheid Xpert Xpress CoV- 2/Flu/RSV Plus RNA by RT-PCR result to be used for statistical tracking purpose only.SARS-CoV-2 (COVID-19) RNA ROXANA+probe Ql (Unsp spec)[facility] Street HospitalCOVID-19 / Flu A/B / RSV PCRon 70-49-2828JJFG-CoV-2 (COVID-19) RNA ROXANA+probe Ql (Unsp spec)COVID-19 Cepheid Result Negative for SARS-CoV-2 RNA by [...] or Cepheid Disclaimer revoked sooner. PERFORMED BY: [place] [id number] PATHOLOGIST BRONZE CHASER GRABIEL MASON M.D.NormalWilson Street HospitalComment on above: Performed By: #### COVID19 FLU RSV, CEPHEID NEG #### [address] [address] USACepheid COVID PCR Negativeon 49-12-4579LTJU-CoV-2 (COVID- 19) RNA ROXANA+probe Ql (Unsp spec)NegativeNormalNegativeWilson Street HospitalComment on above:Result Comment: This is a duplicate Cepheid Xpert Xpress CoV-2/Flu/RSV Plus RNA by RT-PCR result to be used for statistical tracking purpose only. PERFORMED BY: [address] [address] PATHOLOGIST BRONZE CHASER GRABIEL MASON M.D.Performed By: #### COVID19 FLU RSV, CEPHEID NEG #### [facility] [address] [place] [address] USAColor Auto (U)Ordered By: Teja Beth on 12-19-2022 Color (U)YellowYellowWilson Street HospitalDipstick and Microscopicon 88-46-2028Fjtwywqjoa (U)ClearNormalClearWilson Street Hospital Comment on above:Order Comment: Name Collection Type:: Clean-Voided Midstream Performed By: #### UHCG, ADDONUAPLUS #### [facility] [address] [place] [address] USABacteria,UrineNone SeenNormalNone SeenWilson Street HospitalComment on above:Order Comment: Name Collection Type:: Clean- Voided MidstreamPerformed By: #### UHCG, ADDONUAPLUS #### [facility] [address] [place] [address] USABilirubin,UrineNegativeNormalNegativeWilson Street HospitalComment on above:Order Comment: Name Collection Type:: Clean- Voided MidstreamPerformed By: #### UHCG, ADDONUAPLUS #### [facility] [address] [place] [address] USAColor (U)YellowNormalYellowWilson Street HospitalComment on above:Order Comment: Name Collection Type:: Clean-Voided MidstreamPerformed By: #### UHCG, ADDONUAPLUS #### [facility] [address] [place], [place] [address] USAGlucose Ql (U)NormalNormalNormalWilson Street HospitalComment on above:Order Comment: Name Collection Type:: Clean-Voided MidstreamPerformed By: #### UHCG, ADDONUAPLUS #### [facility] [address] [place], [place] [address] USAHyaline Casts,Ojdne0-2Pkjeko7-1JiujrzeitWilson Street HospitalComment on above:Order Comment: Name Collection Type:: Clean-Voided MidstreamPerformed By: #### UHCG, ADDONUAPLUS #### [facility] [address] [place] [address] USAKetones Ql (U)TraceHighNegativeWilson Street HospitalComment on above:Order Comment: Name Collection Type:: Clean-Voided MidstreamPerformed By: #### UHCG, ADDONUAPLUS #### [facility] [address] [place] [address] USALeukocyte esterase Test strip Ql (U)1+HighNegative [facility] [address] HospitalComment on above:Order Comment: Name Collection Type:: Clean-Voided MidstreamPerformed By: #### UHCG, ADDONUAPLUS #### [place] [address] USANitrite,UrineNegativeNormalNegativeWilson [address] HospitalComment on above:Order Comment: Name Collection Type:: Clean- Voided MidstreamPerformed By: #### UHCG, ADDONUAPLUS #### [place] [address] USAOccult Blood,UrineNegativeNormnjNegTriHealth Bethesda North HospitalComment on above:Order Comment: Name Collection Type:: Clean- Voided MidstreamPerformed By: #### UHCG, ADDONUAPLUS #### [place] [address] USApH (U)6.0 [pH]Normal5.0-9.0[address] HospitalComment on above:Order Comment: Name Collection Type:: Clean-Voided MidstreamPerformed By: #### UHCG, ADDONUAPLUS #### [place] [address] USAProtein,UrineNegativeNormalNegTriHealth Bethesda North HospitalComment on above:Order Comment: Name Collection Type:: Clean- Voided MidstreamPerformed By: #### UHCG, ADDONUAPLUS #### [place] [address] USARBC,Laqcj2-8Idtajo4-4AzqveuguwPremier Health Comment on above:Order Comment: Name Collection Type:: Clean-Voided Midstream Performed By: #### UHCG, ADDONUAPLUS #### [facility] [address] [place] [address] USASpecificy [place],Urine1.546Ijqhhy8.001-1.[address] HospitalComment on above:Order Comment: Name Collection Type:: Clean-Voided MidstreamPerformed By: #### UHCG, ADDONUAPLUS #### [facility] [address] [place] [address] USASquamous Epithelial Cell,Hcbiw8-5Qbad7-3WtungupqjPremier HealthComment on above:Order Comment: Name Collection Type:: Clean- Voided MidstreamPerformed By: #### UHCG, ADDONUAPLUS #### [facility] [address] [place] [address] USAUrobilinogen,UrineNormalNormalNormalWilson Street HospitalComment on above:Order Comment: Name Collection Type:: Clean- Voided MidstreamPerformed By: #### UHCG, ADDONUAPLUS #### [facility] [address] [place] [address] USAWBC,Qgcbu6-1Cdbwiv3-1PjutyphfsPremier Health Comment on above:Order Comment: Name Collection Type:: Clean-Voided Midstream Performed By: #### UHCG, ADDONUAPLUS #### [facility] [address] [place] [address] USAHCG ( test) IA.rapid Ql (U)Ordered By: Teja Beth on 13-57-8494SQL ( test) Ql (U)NegativeWilson Street HospitalHCG,Urineon 57-28-5705Ehis HCG ( test) Ql (U)Negative NormalWilson Street HospitalComment on above:Order Comment: Name Collection Type:: Clean-Voided MidstreamResult Comment: PERFORMED BY: [place] [address] PATHOLOGIST BRONZE CHASER GRABIEL MASON M.D.Performed By: #### UHCG, ADDONUAPLUS #### [facility] [address] [place], [place] [address] USAKetones Auto test strip (U) [Mass/Vol]Ordered By: Teja Beth on 63-52-9332Peqlsoi (U) [Mass/Vol]TraceNegTriHealth Bethesda North HospitalLaboratory - UrinalysisOrdered By: Teja Beth on 12-19-2022 Hyaline casts LM Ql (Urine sed)0-8 [LPF]0-8[facility] Nitrite Test strip Ql (U)Ordered By: Teja Beth on 86-93-4083Zslasba Ql (U) NegativeNegTriHealth Bethesda North HospitalProtein Auto test strip (U) [Mass/Vol]Ordered By: Teja Beth on 00-02-7198Ardqswl (U) [Mass/Vol]Negative NegativeCleveland Clinic South [facility] Hospitalpecific gravity Auto test strip (U) [Rel density]Ordered By: Teja Beth on 25-26-4659Zpblnaoa gravity (U) [Rel density]1.0221.001-1.030[facility] Hospitalquamous epithelial cells detection in urine sediment by light microscopyOrdered By: Teja Beth on 26-44-9402Hzvhpoikpt cells.squamous LM Ql (Urine sed)5-9 [HPF]0-2FPremier HealthUrine bacteria detection by automated methodOrdered By: Teja Beth on 46-08-1166Qkbifdzg Auto Ql (U)None seenNone SeenWilson Street HospitalUrine clarity by refractometry automatedOrdered By: Teja Beth on 48-30-7005Plmwvap Refractometry automated (U)ClearClear Wilson Street HospitalUrine glucose measurement by automated test strip (mass/volume)Ordered By: Teja Beth on 30-87-8067Ymnylaw Auto test strip (U) [Mass/Vol]Normal mg/dLToledo HospitalUrine hemoglobin detection by automated test stripOrdered By: Teja Beth on 79-45-0788Fqtxgsabes Auto test strip Ql (U)NegativePremier Health Upper Valley Medical CenterUrine leukocyte esterase detection by automated test stripOrdered By: Teja Beth on 37-33-2574Bzlwqdpwd esterase Auto test strip Ql (U)1+ [facility] Medical CenterUrobilinogen Auto test strip (U) [Mass/Vol]Ordered By: Teja Beth on 40-60-1678Fgeqqhobrchb (U) [Mass/Vol] Normal mg/dLNoMary Rutan HospitalpH Auto test strip (U)Ordered By: Teja Beth on 53-85-6515eP (U)6.0 [pH]5.0-9.0[facility] Note-Physicianon 98-99-1097HB Note-PhysicianBasic Information Time Seen: Kane MUNOZ Maren SwansonHaroon 11/29/2022 09:15 Chief Complaint pt c/o sore [...] She denies any chest pain or shortness ofbreath. Patient states she has had recurrent strep throat in the past. The patient does not smoke. She does not drink alcohol. She does not use any street drugs. Patient denies and is on oral contraceptive. She has no known allergies. She does not routinely take any other medications. Shedenies any fevers chills or sweats. She has [...] production, wheezing, hemoptysis, shortness of breath, dyspnea onexertion Gastrointestinal: Denies abdominal pain, unintentional weight loss, difficulty swallowing, indigestion, bloating, cramping, loss of appetite, nausea, vomiting, diarrhea, constipation, hematochezia, melena Genitourinary: Denies any incontinence of urine, dysuria, hematuria, nocturia, polyuria, hesitancy,frequency, urgency, burning Musculoskeletal: Denies joint pain, morning stiffness, joint swelling, decreased range of motion, crepitus Integumentary: Denies any pruritus, rashes, lesions, wounds, petechiae Neurologic: Denies any changes in sight, smell, hearing, taste, seizures, headache, paresthesia, numbness, weakness, balance disturbance Psychiatric denies any depression, change in sleep patterns, anxiety, difficulty concentrating, paranoia, anhedonia, lack of energy, melissa Hematologic/lymphatic: Denies any purpura, petechiae, excessive bleeding, bruising [...] to the emergency department for any further problemsor concerns. 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 The attending physician was in the Emergency [...] Oral, BID Allergies No (more content not included)...[facility] CenterComment on above:Result Comment: Electronically Signed By: Maren Middleton PA-C\.br\Date and Time Signed: 11/29/22 09:35 EDT\.br\Electronically Co-Signed By: Nikolay Valencia MD\.br\Date and Time Co-Signed: 12/18/2308:30 EDTConsent for Treatmenton 75-94-8937Scvdiet for Treatment [id number]#1.00CD:127[facility] Medical CenterDischarge Instructionson 92-58-5909Ftodnxbbh Instructions [id number]#1.00CD:127[facility] Clinical Summaryon 50-24-9974IS Clinical Summary [place] [id number] ED Clinical Summary Person Information Name: OSMAN COHEN [facility] Age: 22 Years : 2000 Sex: Female Language: Dominican PCP: MINAL NEWMAN DO Marital Status: Single [...] 11/29/2022 09:57:10 11/29/2022 09:57:10 11/29/2022 09:57:10 ADDRESS: [place] [id number] PHYS DOC NOTES: MEDICAL INFORMATION: Prescriptions Given: New Medications [facility] [id number], [address], [place] [id number], [phone] amoxicillin (amoxicillin 875 mg Tab) 1 Tablets [...] Refills: 0. PATIENT EDUCATION INFORMATION: Instructions: Pharyngitis, Qmpp-lm-Kqhm Follow up: With: Address: When: MINAL NEWMAN [address], [address] [place] [address] [place] ([email or web address] In 3 days 12/02/2022 DIAGNOSIS: 1:Exudative pharyngitisNormalFisher Victoria Medical CenterED Patient Education Noteon 57-68-6575NW Patient Education NoteInfectious Disease Pharyngitis Pharyngitis is a sore throat [...] these instructions at home: Medicines ? Take wjml-soq-qssfidr and prescription medicines only as told by your doctor. ? If you were prescribed an antibiotic medicine, take it as told by your doctor. Do not stop takingthe antibiotic even if you start to feel [...] or tobacco. If you need help quitting, askyour doctor. ? Rest as told by your doctor. ? Drink enough fluid to keep your pee (urine) pale yellow. How is this prevented? ? Wash your hands often for at least 20 seconds with soap and water. If soap and water are not available, use hand laboratory secretary. ? Do not touch your eyes, nose, [...] your local emergency services (911 int [place] ? Do not wait to see if the symptoms will go away. ? Do not drive yourself to the hospital. Summary ? Pharyngitis is a sore throat (pharynx). This is when there is redness, pain, and swelling in yourthroat. ? Most of the time, pharyngitis gets better on its own. Sometimes, you may need medicine. ? If you were prescribed an antibiotic medicine, take it as told by your doctor. Do not stop takingthe antibiotic even if you start to feel better. This information is not intended to replace advice given to you by your health care provider. Make sure you discuss any questions you have with your health care provider. Document Revised: 08/13/2021 Document Reviewed: 08/13/2021 Fon Patient Education ? 2022 BView.[facility] ED Patient Summaryon 78-60-6438XF Patient Summary [address] [address] Patient Discharge Instructions Person Information Name: OSMAN COHEN Age: 22 Years Arrival Date: 11/29/2022 09:08:57 Discharge Diagnosis: 1:Exudative pharyngitis Primary Care Physician: MINAL NEWMAN DO Provider Information Primary Provider: Advanced Product Line Manager:None The exam and treatment you received in the Emergency Department were for an urgent problem and are not intended as complete care. It is important that you follow up with a doctor, nurse practitioner,or physician?s medication assistant for ongoing care. If your symptoms [...] When: MINAL NEWMAN [address], [facility] [address] [place] [address] Business (1) In 3 days 12/02/2022 In the event that this physician does not participate in your insurance network, please consult with your insurance company to find a nearby participating provider. Patient Education Materials: Pharyngitis, Irvf-aw-Fzor A MESSAGE TO ALL PATIENTS REGARDING OPIOIDS PRESCRIPTION OPIOIDS: WHAT YOU NEED TO KNOW Prescription opioids can be used to help relieve admensmf-yq-egjmvz pain and are often prescribed following a [...] and have fewer risks and side effects. Optionsmay include: ? Pain relievers such as acetaminophen, [...] unused prescription opioids: Find your community drug take- back program or [employer] mail-back program, or flush them down the toilet, following guidance from the Food and Drug Administration (www.fda.gov/Drugs/ResourcesForYou). ? Visit www.cdc.gov/drugoverdose to learn about the risks of opioids abuse and overdose. ? If you believe you may be struggling with addiction, tell your health child care nurse and ask for guidance or call [facility]?S National Helpline at 3-417-377-VRRD. r Source: Department of Health and Human (more content not included)...Normal [facility] HospitalPrescriptions/Work Noteson 11-29-2022 Prescriptions/Work [id number]#1.00CD:127 [facility] CenterConsent for Treatmenton 82-28-0519Ojzuuwd for [id number]#1.00CD:127[facility] CenterDischarge Instructionson 07-58-6931Pvzgjmxbw Instructions [id number]#1.00CD:127[facility] Clinical Summaryon 09-47-0529SF Clinical Summary [address] [address] ED Clinical Summary Person Information Name: OSMAN COHEN [place] Age: 22 Years : 2000 Sex: Female Language: Dominican PCP: MINAL NEWMAN DO Marital Status: Single [...] 11/25/2022 11:59:45 11/25/2022 11:59:45 ADDRESS: [address] [facility] [phone] [facility] DOC NOTES: MEDICAL INFORMATION: Prescriptions Given: Medications to Continue with No Changes Other Medications naproxen (Naprosyn 500 mg Tab) 1 Tablets By Mouth 2 times a day. Refills: 0. naproxen (naproxen 500 mg Tab) 1 Tablets By Mouth 2 times a day. Take one tab by mouth two times a day. Refills: 0. PATIENT EDUCATION INFORMATION: Instructions: Pharyngitis, Vndc-gj-Zmov Follow up: With: Address: When: MINAL NEWMAN [address] , [address] [address] [facility] () In 3 days 11/28/2022 Comments: Follow-up with your primary care provider in 3 to 5 days. If symptoms worsen, do not improve, or new symptoms arise please report back to emergency department for further evaluation. DIAGNOSIS: PharyngitisNormalFisher Victoria Medical CenterED Note-Physicianon 05-84-4843US Note-PhysicianBasic Information Time Seen: Tavo Angel PA-C 11/25/2022 11:26 Chief Complaint pt reports throbbing throat pain that started last night. Difficulty swallowing History of Present Illness 22-year-old female reports to the emergency department with chief complaint of throat pain. Reportsthat she has been having a sore throat [...] and Complexity of Problems Differential Diagnosis: [] [facility] Data External documents reviewed: [] [...] erythema in the throat, but there are noexudates. Rest of the exam of the patient [...] new symptoms arise please report back to emergencydepartment for further evaluation. The patient was understanding [...] medications Follow-up With When Contact Information MINAL JOHNSONOMARIBARNEY In 3 days 11/28/[address], [address] [place] [address]- Business (1) Additional Instructions: Follow-up with your primary care provider in 3 to 5 days. If symptoms worsen, do not improve, or new symptoms arise please report back to emergency department for further evaluation. Patient Education Pharyngitis, Jihw-pw-Kbav Attestation Patient seen and evaluated by the physician medication assistant. Attending physician was present in the emergency department and supervised care. This visit was performed by both the physician and an APC. I performed all aspects of the MDM as documented. This report was transcribed using voice recognition software. Every effort was made to ensure accuracy, however, inadvertently computerized engineering faculty mistakes may be present. Appropriate healthcare PPE was used in evaluating this patient. The patient was placed in a mask. The healthcare provider was wearing mask, gloves, (more content not included)...[facility] Medical CenterComment on above:Result Comment: Electronically Signed By: Tavo Angel PA-C\.laura\Date and Time Signed: 11/25/2313:06 EDT\.br\Electronically Co-Signed By: Satish Thao DO\.br\Date and Time Co-Signed: 11/25/2313:23 EDTED Patient Education Noteon 23-96-9179CA Patient Education NoteInfectious Disease Pharyngitis Pharyngitis is a sore throat [...] these instructions at home: Medicines ? Take gjyv-ljb-fxqzmyt and prescription medicines only as told by your doctor. ? If you were prescribed an antibiotic medicine, take it as told by your doctor. Do not stop takingthe antibiotic even if you start to feel [...] or tobacco. If you need help quitting, askyour doctor. ? Rest as told by your doctor. ? Drink enough fluid to keep your pee (urine) pale yellow. How is this prevented? ? Wash your hands often for at least 20 seconds with soap and water. If soap and water are not available, use hand laboratory secretary. ? Do not touch your eyes, nose, [...] your local emergency services (911 inthe [place].). ? Do not wait to see if the symptoms will go away. ? Do not drive yourself to the hospital. Summary ? Pharyngitis is a sore throat (pharynx). This is when there is redness, pain, and swelling in yourthroat. ? Most of the time, pharyngitis gets better on its own. Sometimes, you may need medicine. ? If you were prescribed an antibiotic medicine, take it as told by your doctor. Do not stop takingthe antibiotic even if you start to feel better. This information is not intended to replace advice given to you by your health care provider. Make sure you discuss any questions you have with your health care provider. Document Revised: 08/13/2021 Document Reviewed: 08/13/2021 Elsevier Patient Education ? 2022 BView.[facility] ED Patient Summaryon 14-60-4353VR Patient Summary [address] [address] Patient Discharge Instructions Person Information Name: OSMAN COHEN Age: 22 Years Arrival Date: 11/25/2022 11:16:53 Discharge Diagnosis: Pharyngitis Primary Care Physician: MINAL NEWMAN DO Provider Information Primary Provider: Satish Thao DO Advanced Product Line Manager:None The exam and treatment you received in the Emergency Department were for an urgent problem and are not intended as complete care. It is important that you follow up with a doctor, nurse practitioner,or physician?s medication assistant for ongoing care. If your symptoms [...] With: Address: When: MINAL NEWMAN [address] [facility], [facility] [address] [place] [address] [facility] (1) In 3 days 11/28/2022 Comments: Follow-up [...] nearby participating provider. Patient Education Materials: Pharyngitis, Pxwi-sn-Uvko A MESSAGE TO ALL PATIENTS REGARDING OPIOIDS PRESCRIPTION OPIOIDS: WHAT YOU NEED TO KNOW Prescription opioids can be used to help relieve aybpgrtp-gx-sjdnwe pain and are often prescribed following a [...] and have fewer risks and side effects. Optionsmay include: ? Pain relievers such as acetaminophen, [...] unused prescription opioids: Find your community drug take- back program or yourpharmacy mail-back program, or flush them down the toilet, following guidance from the Food and Drug Administration (www.fda.gov/Drugs/ResourcesForYou). ? Visit www.cdc.gov/drugoverdose to learn about the risks of opioids abuse and overdose. ? If you (more content not included)...[facility] Medical CenterGrp A Strp PCRon 64-98-2383Dhlzx A StrepNegativeUpper Valley Medical Center Comment on above:Order Comment: Order Added on by Discern Rule.Result Comment: Testing performed using DNA amplification.Performed By: #### [id number], [id number] ####[facility] [address] [place], [place] [address]Oif A Strp Intrl CtrlPassUpper Valley Medical CenterComment on above: Order Comment: Order Added on by Discern Rule.Performed By: #### [id number], [id number] ####[facility] [address] [place], [place] [address]DYTAL OTHER TESTSOrdered By: Zeinab Renner on 11-25-2022S. pyogenes Ag IA.rapid Ql (Throat)Negative (11/25/22 11:28 AM)[facility]NegAd[facility]Health Man SeroRapid Strep w/rfxon 11-25-2022S. pyogenes Ag [place].rapid Ql (Throat)NegativeNormalMemorial Health System Selby General HospitalComment on above:Performed By: #### [id number], [id number] ####[facility] [address] [place] [address] 20265Q Urineon 11-17-2022 Bacteria identified Cx Nom (U)Microbiology PROCEDURE: Urine Culture [R1] SOURCE: U CleanCatch [...] or tested, I=Intermediate, ESBL=Extended spectrum beta-lactamase, R=Resistant, TFG=Thymidine-dependent strain, RENETTA=Beta-lactamase positive, SEMAJ=mcg/m;(mg/L), S*=Predicted susceptible interp, [...] This test was performed at: [facility], [address] [place] [address], [address]- , , KfgammXaotsmUpper Valley Medical CenterComment on above:Performed By: #### [id number], [id number], [id number] ####[facility] [address] [place], [place] [address]Sbfjxmatf Instructionson 70-76-6723Ddysmzirn [id number]#1.00CD:[address] [place], [place] [address]Prescriptions/Work Noteson 30-97-8458Dflwbrlwomwbu/Work [id number]#1.00CD:[address] [place], [place] [address]Consent for Treatmenton 83-77-6646Fnaffel for Treatment [id number]#1.00CD:[address] [place] [address] Clinical Summaryon [id number] Clinical Summary [address] [address] ED Clinical Summary Person Information Name: OSMAN COHEN [facility] Age: 21 Years : 2000 Sex: Female Language: Dominican PCP: MINAL NEWMAN DO Marital Status: Single [...] 11/14/2022 23:53:31 11/14/2022 23:53:31 ADDRESS: [address] [facility] [phone] PHYS DOC NOTES: MEDICAL INFORMATION: Prescriptions Given: [...] With: Address: When: MINAL NEWMAN [address] [facility], [place] [id number] [facility] ([email or web address] In 3 days 11/17/2022 Comments: Return to the emergency room if your symptoms get worse, vomiting, fever or any new symptoms DIAGNOSIS: 1:Urinary tract infectionNoLeonora Green Medical CenterED Note-Physicianon 08-22-5331PN Note-PhysicianBasic Information Time Seen: Tim Knight M.D. 11/14/2022 [...] and Complexity of Problems Differential Diagnosis: [] [facility] Data External documents reviewed: [] [...] TID Follow-up With When Contact Information MINAL JOHNSONOMARIBARNEY In 3 days 11/17/[address], [address] [place], [place] [address] [facility] (1) Additional Instructions: Return to the emergency [...] hCG Ql: Negative (11/14/ (more content not included)...NormalEast Ohio Regional HospitalComment on above:Result Comment: Electronically Signed By: Antonia Singh, Tim H\.br\Date and Time Signed: 11/14/2322:49 EDTED Patient Education Noteon 81-09-7472EA Patient Education NoteObstetrics and Gynecology Urinary Tract Infection, Adult A [...] this condition includes: ? Antibiotic medicine. ? Peoo-lst-tmfqroi medicines to treat discomfort. ? Drinking enough [...] these instructions at home: Medicines ? Take cong-nrt-kmirzpb and prescription medicines only as told by [...] Revised: 12/27/2020 Document Revie (more content not included)...Normal [facility] Patient Summaryon 29-42-9700ME Patient Summary [place] [id number] Patient Discharge Instructions Person Information Name: OSMAN COHEN Age: 21 Years Arrival Date: 11/14/2022 23:02:06 Discharge Diagnosis: 1:Urinary tract infection Primary Care Physician: MINAL NEWMAN DO Provider Information Primary Provider: Tim Knight M.D. Advanced Product Line Manager:None The exam and treatment you received in the Emergency Department were for an urgent problem and are not intended as complete care. It is important that you follow up with a doctor, nurse practitioner,or physician?s medication assistant for ongoing care. If your symptoms become worse or you do not improve as expected and you are unable to reach your usual health care provider, you should return to the Emergency Department. We are available 24 hours a day. OSMAN COHEN has been given the following list of patient education materials, prescriptions and follow-up instructions: Follow-up Instructions: With: Address: When: MINAL NWEMAN [address], [address] [place] [address] [employer] ([email or web address] In 3 days 11/17/2022 Comments: Return to [...] opioids can be used to help relieve qaanbtrg-ve-gqhmyi pain and are often prescribed following a [...] and have fewer risks and side effects. Optionsmay include: ? Pain relievers such as acetaminophen, [...] unused prescription opioids: Find your community drug take- back program or yourZagsterrmacy mail-back program, or flush them down the toilet, following guidance from the Food and Drug Administration (www.fda.gov/Drugs/ResourcesForYou). ? Visit www.cdc.gov/drugoverdose to learn about the risks of opioids abuse and overdose. ? If you believe you may be struggling with addiction, tell your health ca (more content not included)...[facility] Bluffton HospitalEROLOGYOrdered By: Jamison Daley on 81-35-2880BYZ.beta subunit (U) [Moles/Vol]NegativeNormalHOLDENVILLE GENERAL HOSPITAL – [place] Man SeroU BetaHcg Qualon 72-77-9087AMY.beta subunit (U) [Moles/Vol]Negative [facility] CenterComment on above:Performed By: #### [id number], [id number], [id number] ####Agustin [facility] [address] [place], [place] [address]NL With Cult Reflexon 59-37-5519Fbnrgpau LM Ql (Urine sed)1+ /HPFAbnormalTraceEast Ohio Regional HospitalComment on above:Performed By: #### [id number], [id number], [id number] ####[address] [address]Xfqxyzlye Ql (U)NegativeNormalNegativeEast Ohio Regional HospitalComment on above:Performed By: #### 8483823, [id number], [id number] ####[address] [address] Clarity (U)SL CLOUDYInvalid Interpretation CodeEast Ohio Regional Hospital Comment on above:Performed By: #### [id number], [id number], [id number] ####[address] [address]Hmslj (U)ORANGE AbnormalYellowEast Ohio Regional HospitalComment on above:Performed By: #### 6377712, 34543688, [id number] ####[place] [address]Epithelial cells.squamous LM.HPF (Urine sed) [#/Area]7-6Rccsmx6-0Cgoxkx [facility] Medical CenterComment on above:Performed By: #### [id number], [id number], 67402649 ####[address] [address]Lvyrbjp Test strip (U) [Mass/Vol]1+AbnormalNegative [facility] HospitalComment on above:Performed By: #### 0147636, 59475562, 90710000 ####[address] [address]Sljvrwkxnh Ql (U)2+AbnormalNegativeEast Ohio Regional HospitalComment on above:Performed By: #### 8041484, 65356481, 30635299 ####[address] [address]Iflhrsn (U) [Mass/Vol]1+AbnormalNegativeEast Ohio Regional HospitalComment on above: Performed By: #### 2910295, 22307923, 50255737 ####[address] [address]Nuoiwlh.plasma/[place].RBC (Bld) [Mass ratio]6-17Mlcdqk2-7Yyobzp [facility] Medical CenterComment on above:Performed By: #### 3426600, 61522377, 10665471 ####[address] [address]Jmmmblt Ql (U)PositiveAbnormal NegativeEast Ohio Regional HospitalComment on above:Performed By: #### 0255150, 59809532, 32077268 ####[address] [address]hP (U)6.5 [pH]Invalid Interpretation Code5.0-9.0[facility] HospitalComment on above:Performed By: #### 2222682, 18366333, 78256209 ####[address] [address] Protein (U) [Mass/Vol]3+AbnormalNegativeEast Ohio Regional HospitalComment on above:Performed By: #### 6501373, 46670291, 40393726 ####[address] [address]Zjjqvchw gravity (U) [Rel density]1.025Invalid Interpretation Code1.005-1.030[facility] Comment on above:Performed By: #### 1614097, 93525252, [id number] ####[address] [address]Fhvi of Urine collection methodClean CatchNormalEast Ohio Regional HospitalComment on above: Performed By: #### 5394138, 43055127, 19141372 ####[address] [address]Xccywhqgcwsj Qn (U)>=8.0Abnormal 0.0-1.0[facility] HospitalComment on above:Performed By: #### 5598038, 95675248, [id number] ####Vamsi [facility] [address] [place], [place] [address]DLS Auto Ql (U)2+AbnormalNegativeFisher [facility] Comment on above:Performed By: #### 9648289, 86504535, [id number] ####Vamsi [facility] [address] [place], [place] [address]VBY LM.HPF (Urine sed) [#/Area]39-57Vbhiurde8-0Yiipyc [facility] Medical CenterComment on above:Performed By: #### 4684653, 76608425, 98865236 ####Agustin [facility] [address] [place], [place] [address]CTDYNAMYGPWiicjap By: Jamison Daley on 63-98-9188Zmtrvtji LM Ql (Urine sed)1+ /HPFInvalid Interpretation CodeTrace/HPFHOLDENVILLE [facility] [place] [facility] Auto SSBilirubin Ql (U)Negative (11/14/22 11:22 PM)NormalNegativeHOLDENVILLE GENERAL [facility] [place] U[facility] Auto SSClarity (U)SL CLOUDYInvalid Interpretation CodeHOLDENVILLE GENERAL [facility] [place] [facility] Auto SSColor (U)[place] *ABN* (11/14/22 11:22 PM)Invalid Interpretation CodeYellowHOLDENVILLE GENERAL HOSPITAL [facility] [place] UA Auto SSEpithelial cells.squamous LM.HPF (Urine sed) [#/Area]3-4 /HPFNormal0-2/HPFFTMC UA Auto SS Glucose Test strip (U) [Mass/Vol]1+ *ABN* (11/14/22 11:22 PM)Invalid Interpretation CodeNegativeHOLDENVILLE GENERAL [facility]OS[facility] [place] UA Auto SSHemoglobin Ql (U)2+ *ABN* (11/14/22 11:22 PM)Invalid Interpretation CodeNegativeHOLDENVILLE [facility]AL [facility] [place] [facility] Auto SSKetones (U) [Mass/Vol]1+ *ABN* (11/14/22 11:22 PM)Invalid Interpretation CodeNegativeHOLDENVILLE GENERAL [facility]OS[facility] [place] UA Auto SS [place].plasma/[place].RBC (Bld) [Mass ratio]4-20 /HPFNormal0-3/HPFFTMC UA Auto SSNitrite Ql (U)Positive *ABN* (11/14/22 11:22 PM)Invalid Interpretation CodeNegativeHOLDENVILLE GENERAL [facility] [place] [facility] Auto SSpH (U)6.5 *NA* (11/14/22 11:22 PM)Invalid Interpretation Code5.0 - 9.0[facility] [place] [facility] Auto SSProtein (U) [Mass/Vol]3+ *ABN* (11/14/22 11:22 PM)Invalid Interpretation CodeNegativeHOLDENVILLE [facility]AL [facility] [place] UA Auto SSSpecific gravity (U) [Rel density]1.025 *NA* (11/14/22 11:22 PM)Invalid Interpretation Code1.005 - 1.030H[facility] [place] [facility] Auto SSUA Spec DescClean Catch (11/14/22 11:22 PM)NormalHOLDENVILLE GENERAL HOSPITAL [facility] [place] UA Auto SSUrobilinogen Qn (U){Enrique'U}/dLInvalid Interpretation Code0.0 - 1.0 EU/dLHOLDENVILLE GENERAL HOSPITAL – [place] UA Auto SSWBC Auto Ql (U)2+ *ABN* (11/14/22 11:22 PM)Invalid Interpretation CodeNegativeHOLDENVILLE [facility] [place] [facility] Auto SSWBC LM.HPF (Urine sed) [#/Area]16-25 /HPFInvalid Interpretation Code0-5/HPFHOLDENVILLE [facility] [place] UA Auto SS Consent for Treatmenton [id number] for Treatment [id number]#1.00CD:[address] [place], [place] [address]Discharge Instructionson [id number] Instructions [id number]#1.00CD:127[facility] Clinical Summaryon [id number] Clinical Summary [place] [address] ED Clinical Summary Person Information Name: OSMAN COHEN [place] Age: 21 Years : 2000 Sex: Female Language: Dominican PCP: NONE, XXXX Marital Status: Single Visit [...] 11/09/2022 07:36:04 11/09/2022 07:36:04 11/09/2022 07:36:04 ADDR[address]: [address] [facility] [id number] PHYS DOC NOTES: Addendum by Gus Mcgowan DO [...] up: With: Address: When: Charisse Melendez [address], [address], [facility] [address] [place] [address] [facility] (1) In 3 days 11/12/2022 With: Address: When: XXXX [facility] , [place] In 3 days DIAGNOSIS: Acute headacheNormalFisher Peter Medical CenterED Note-Nursingon 01-39-1791FO Note-NursingPt states she has a hx of migraines and states she is vomiting due to pain. Upon assessment pt did vomit.[facility] CenterED Note-Physicianon [id number] Note-PhysicianBasic Information Time Seen: Mile CHRISTOPHER Troyyennifer Webster 11/09/2022 05:24 Chief Complaint complains of frontal headache this am. nausea and vomiting. taking tylenol without relief. History of Present Illness HPI: Patient is a 21-year-old female with past medical history of migraines who presents the ED forheadache. Patient states that she has a history [...] and Complexity of Problems Differential Diagnosis: [] [facility] Data External documents reviewed: N/A [...] Stop date 11/09/22 5:47:00 EDT, STAT, Start date11/09/22 5:47:00 EDT, 11/09/22 5:47:00 EDT magnesium sulfate [...] migraine headache. She is comfortable with this plan.[facility] CenterComment on above: Result Comment: Electronically Signed By: Gus Mcgowan DO\.br\Date and Time Signed: 11/09/22 07:29EDTED Patient Education Noteon [id number] Patient Education NoteNoKettering Health [facility] Patient Summaryon 57-73-6981CS Patient Summary [address] [address] Patient Discharge Instructions Person Information Name: OSMAN COHEN Age: 21 Years Arrival Date: 11/09/2022 05:13:42 Discharge Diagnosis: Acute headache Primary Care Physician: NONE, XXXX Provider Information Primary Provider: Troy Treadwell DO Advanced Product Line Manager:None The exam and treatment you received in the Emergency Department were for an urgent problem and are not intended as complete care. It is important that you follow up with a doctor, nurse practitioner,or physician?s medication assistant for ongoing care. If your symptoms [...] Address: When: Charisse Melendez [address], [address], [facility] [address] [place] [address] Business (1) In 3 days 11/12/2022 With: Address: When: XXXX [facility] , [place] In 3 days In the event that this physician does not participate in your insurance network, please consult with your insurance company to find a nearby participating provider. Patient Education Materials: A MESSAGE TO ALL PATIENTS REGARDING OPIOIDS PRESCRIPTION OPIOIDS: WHAT YOU NEED TO KNOW Prescription opioids can be used to help relieve hzusrboq-az-dtogkt pain and are often prescribed following a [...] and have fewer risks and side effects. Optionsmay include: ? Pain relievers such as acetaminophen, [...] unused prescription opioids: Find your community drug take- back program or [employer] mail-back program, or flush them down the toilet, following guidance from the Food and Drug Administration (www.fda.gov/Drugs/ResourcesForYou). ? Visit www.cdc.gov/drugoverdose to learn about the risks of opioids abuse and overdose. ? If you believe you may be struggling with addiction, tell your health child care nurse and ask for guidance or call SAMHSA?S National Helpline at 8-328-394-HELP. v Source: US Dep (more content not included)...[facility] Prescriptions/Work Noteson 48-28-0616Xblfpezierwya/Work Notes [id number]#1.00CD:127NormalEast [place] Regional HospitalCB with Diffon 26-57-1892Awl. Basophil0.00 k/uLNormal0.0-0.2Mer[facility] County HospitalComment on above:Performed By: #### HCG, CDP, CP, TROPI, DIME #### [facility] [address] [place] [address] Icu Specialist: Hilraia Lackey.Neutrophil (Seg)2.70 k/uLNormal2.5-7.0[facility]aritan HospitalComment on above:Performed By: #### HCG, CDP, CP, TROPI, DIME #### [facility] [address] [place] [address] Icu Specialist: Thi Lackey Diff PerformedYESNoHarrison Community Hospital Comment on above:Performed By: #### HCG, CDP, CP, TROPI, DIME #### [facility] [address] [place] [address] Icu Specialist: Ilya Allen MDBasophils/100 WBC (Bld)0 %Normal0-2MOhio State Health SystemComment on above:Performed By: #### HCG, CDP, CP, TROPI, DIME #### [facility] [address] [place] [address] Icu Specialist: ROLLY Lackeyosinophils (Bld) [#/Vol]0.10 10*3/uLNormal0.0-0.4 Doctors Hospitalment on above:Performed By: #### HCG, CDP, CP, TROPI, DIME #### [facility] [address] [place] [address] Icu Specialist: ROLLY Lackeyosinophils/100 WBC (Bld)2 %Normal0-5Good Samaritan HospitalComuniversity of michigan health on above:Performed By: #### HCG, CDP, CP, TROPI, DIME #### [facility] [address] [place] [address] Icu Specialist: Ilya Allen MDErythrocyte distribution width (RBC) [Ratio]13.4 % Crwmmy29.1-15.2MOhio State Health SystemComment on above:Performed By: #### HCG, CDP, CP, TROPI, DIME #### [facility] [address] [place] [address] Icu Specialist: Ilya Allen MDHematocrit (Bld) [Volume fraction]39.9 %Normal 36-46[facility]aritan HospitalComment on above:Performed By: #### HCG, CDP, CP, TROPI, DIME #### [facility] [address] [place] [address] Icu Specialist: Ilya Allen MDHemoglobin (Bld) [Mass/Vol]13.4 g/dLNormal 12.0-16.0Doctors Hospitalment on above:Performed By: #### HCG, CDP, CP, TROPI, DIME #### [facility] [address] [place] [address] Icu Specialist: Ilya Allen MDLymphocytes (Bld) [#/Vol]2.70 10*3/uLNormal1.2-5.2 [facility] on above:Performed By: #### HCG, CDP, CP, TROPI, DIME #### [facility] [address] [place] [address] Icu Specialist: Ilay Allen MDLymphocytes/100 WBC (Bld)45 %Rigc98-84WdyhzDoctors Hospitalment on above:Performed By: #### HCG, CDP, CP, TROPI, DIME #### [facility] [address] [place] [address] Icu Specialist: MARGIE LackeyCH (RBC) [Entitic mass]25.7 ebZzz12-77TmstfDoctors Hospitalment on above:Performed By: #### HCG, CDP, CP, TROPI, DIME #### [facility] [address] [place] [address] Icu Specialist: MARGIE LackeyCHC (RBC) [Mass/Vol]33.5 g/nUKyepav85-52OihyzGood Samaritan HospitalComment on above:Performed By: #### HCG, CDP, CP, TROPI, DIME #### [facility] [address] [place] [address] Icu Specialist: MARGIE LackeyCV (RBC) [Entitic vol]76.8 bCZqz05-737IodghGood Samaritan HospitalComment on above:Performed By: #### HCG, CDP, CP, TROPI, DIME #### [facility] [address] [place] [address] Icu Specialist: MARGIE Lackeyonocytes (Bld) [#/Vol]0.40 10*3/uLNormal0.0-1.0 [facility]itan HospitalComment on above:Performed By: #### HCG, CDP, CP, TROPI, DIME #### [facility] [address] [place] [address] Icu Specialist: MARGIE Lackeyonocytes/100 WBC (Bld)8 %Normal4-8Good Samaritan HospitalComment on above:Performed By: #### HCG, CDP, CP, TROPI, DIME #### [facility] [address] [place] [address] Icu Specialist: Darrin Lackeyutrophil (Seg)45 %Ukj88-56CewkmGood Samaritan Hospital Comment on above:Performed By: #### HCG, CDP, CP, TROPI, DIME #### [facility] [address] [place] [address] Icu Specialist: RJ Lackeylatelets (Bld) [#/Vol]257 10*3/pTRaqzyo753-492 [facility]itan HospitalComment on above:Performed By: #### HCG, CDP, CP, TROPI, DIME #### [facility] [address] [place] [address] Icu Specialist: SHEILA Lackey ([facility]) [#/Vol]5.20 10*6/uLNormal4.0-5.2[facility] County HospitalComment on above:Performed By: #### HCG, CDP, CP, TROPI, DIME #### [facility] [address] [place] [address] Icu Specialist: Ilya Allen MDST. VINC[facility] [place] ([facility]) [#/Vol]5.9 10*3/uLNormal4.5-13.5M[facility] County Hospitalcy Tippah County HospitalComment on above:Performed By: #### HCG, CDP, CP, TROPI, DIME #### [facility] [address] [place] [address] Icu Specialist: JENNIFER LackeyA CHEST W CONTRASTon [id number] CHEST W CONTRASTEXAMINATION: CTA CHEST W CONTRAST HISTORY: Reason for [...] by: Ken Mansfield Jr., MD 08/04/22 Final resultNormalChillicothe Hospital Metabolic Profon 76-23-6246Yytsgxa [Mass/Vol]4.0 g/dLNormal3.5-5.2[facility] County HospitalComment on above:Performed By: #### HCG, CDP, CP, TROPI, DIME #### [facility] [address] [place] [address] Icu Specialist: Radha Lackey Phos95 U/GJexbvi60-535UuxhjDoctors Hospitalment on above:Performed By: #### HCG, CDP, CP, TROPI, DIME #### [facility] [address] [place] [address] Icu Specialist: Ilya Allen MDALT [Catalytic activity/Vol]14 U/LNormal5-33[facility] Samaritan HospitalComment on above:Performed By: #### HCG, CDP, CP, TROPI, DIME #### [facility] [address] [place] [address] Icu Specialist: Pam Lackey gap [Moles/Vol]11 mmol/LNormal9-17[facility] Sam[facility]itan HospitalComment on above:Performed By: #### HCG, CDP, CP, TROPI, DIME #### [facility] [address] [place] [address] Icu Specialist: Ilya Allen MDAST [Catalytic activity/Vol]16 U/LNormal<32Doctors Hospitalment on above:Performed By: #### HCG, CDP, CP, TROPI, DIME #### [facility] [address] [place] [address] Icu Specialist: Ilya Allen MDBilirubin [Mass/Vol]0.2 mg/dLLow0.3-1.2MOhio State Health SystemComment on above:Performed By: #### HCG, CDP, CP, TROPI, DIME #### [facility] [address] [place] [address] Icu Specialist: Ilya Allen MDBUN/CRE Irqge41Fawaat5-84[facility] Comment on above:Performed By: #### HCG, CDP, CP, TROPI, DIME #### [facility] [address] [place] [address] Icu Specialist: KOREY Lackeyalcium [Mass/Vol]8.8 mg/dLNormal8.6-10.4[facility]itan HospitalComment on above:Performed By: #### HCG, CDP, CP, TROPI, DIME #### [facility] [address] [place] [address] Icu Specialist: KOREY Lackeyhloride [Moles/Vol]106 mmol/YAzhzco06-320ImemvGood Samaritan HospitalComment on above:Performed By: #### HCG, CDP, CP, TROPI, DIME #### [facility] [address] [place] [address] Icu Specialist: KOREY LackeyO2 [Moles/Vol]22 mmol/SHzpxoz34-26IxwqyGood Samaritan HospitalComment on above:Performed By: #### HCG, CDP, CP, TROPI, DIME #### [facility] [address] [place] [address] Icu Specialist: KOREY Lackeyreatinine [Mass/Vol]0.64 mg/dLNormal0.50-0.90 [facility]itan HospitalComment on above:Performed By: #### HCG, CDP, CP, TROPI, DIME #### [facility] [address] [place] [address] Icu Specialist: Ilya Allen MDGFR/1.73 sq M.predicted among non-blacks MDRD (S/P/Bld) [Vol rate/Area]mL/min/{1.73_m2}Normal>60Good Samaritan HospitalComment on above:Result Comment: These results are not intended for [...] or following therapy that affects renal tubular secretion.Performed By: #### HCG, CDP, CP, TROPI, DIME #### [facility] [address] [place] [address] Icu Specialist: Ilya Allen MDGlucose [Mass/Vol]109 mg/iPJwme74-41NwswgOhio State Health SystemComment on above:Performed By: #### HCG, CDP, CP, TROPI, DIME #### [facility] [address] [place] [address] Icu Specialist: RJ Lackeyotassium [Moles/Vol]3.7 mmol/LNormal3.7-5.3MOhio State Health SystemComment on above:Performed By: #### HCG, CDP, CP, TROPI, DIME #### [facility] [address] [place] [address] Icu Specialist: Ilya Allen MDProtein [Mass/Vol]7.3 g/dLNormal6.4-8.3MOhio State Health SystemComment on above:Performed By: #### HCG, CDP, CP, TROPI, DIME #### [facility] [address] [place] [address] Icu Specialist: Ilya Allen MDSodium [Moles/Vol]139 mmol/XNkubuv300-224NxrnlGood Samaritan HospitalComment on above:Performed By: #### HCG, CDP, CP, TROPI, DIME #### [facility] [address] [place] [address] Icu Specialist: Ilya Allen MDUrea nitrogen [Mass/Vol]11 mg/dLNormal6-20[facility]itan HospitalComment on above:Performed By: #### HCG, CDP, CP, TROPI, DIME #### [facility] [address] [place] [address] Icu Specialist: CHETNA Lackey-Dimer Teston 14-96-3102I-Dimer Test0.54 mg/L FEU Normal0.00-0.59[facility] on above:Result Comment: When combined with a low clinical [...] be more prevalent in patients with distal DVT.Performed By: #### HCG, CDP, CP, TROPI, DIME #### [facility] [address] [place] [address] Icu Specialist: Ilya Allen MDHCG Screen, Bloodon 01-59-9432AUU Screen, Blood NegativeNormalNEGMerUK Healthcare on above:Result Comment: Specimens with hCG levels near the threshold of the test (25 mIU/mL) may give a negative or indeterminate result. In such cases, another test should be performed with a new specimen in 48-72 hours. If early is suspected clinically in this setting, correlation with quantitative serum b-hCG level is suggested. [facility] HospitalMeet[facility] has confirmed the use of plasma for this test. This has not been cleared or approved by the U.S. Food and Drug Administration. The FDA has determined that such clearance is not necessary.Performed By: #### HCG, CDP, CP, TROPI, DIME #### [facility] [address] [place], [place] [address] Icu Specialist: CHUCK Lackeyedimentation Rateon 78-99-6575Kgpzhgxvmprmw Rate 19 mm/HrNormal0-20Good Samaritan HospitalComment on above:Performed By: #### SED #### [facility] [address] [place], [place] [id number] Icu Specialist: Ilya Allen MDTroponinon 52-81-2747Tnlamlqt, High Sens<6Normal 0-14Good Samaritan HospitalComment on above:Result Comment: High Sensitivity Troponin values cannot be compared with other Troponin methodologies.Performed By: #### HCG, CDP, CP, TROPI, DIME #### [facility] [address] [place], [place] [address] Icu Specialist: ORIN Lackey CHEST PORTABLEon 05-40-5660GB CHEST PORTABLE EXAM: XR CHEST PORTABLE HISTORY: Reason for exam:->CP COMPARISON: 07/13/2022 chest IMPRESSION: FINDINGS/IMPRESSION: 1. Normal sized heart. 2. Clear lungs. Interpreted by: Ken Mansfield Jr., MD Signed by: Ken Mansfield Jr., MD 08/04/22 Final resultNormalGood Samaritan HospitalXR CHEST 1 Von 14-01-2509IF CHEST 1 V EXAM: XR CHEST 1 [...] as clinically indicated. Electronically authenticated by: TRACEY PETERS Date: 2022-07-13 05:38[facility] OhioCHLAMYDIA/GONOCOCCUS ROXANA (SWAB/URINE/PAPon 21-59-9304Qfxjqrgly trachomatis, NAANegativeNormalNegativeThe Access Hospital DaytonComment on above: Performed By: #### CT/NGNA #### [facility] [address] [place] [address] Dr. Naveed Maldonado gonorrhoeae, NAANegativeNormalNegativeThe Access Hospital DaytonComment on above:Performed By: #### CT/NGNA #### [facility] [address] [place] [address] Dr. Naveed Flannery URINEon 18-10-3451SYRHHRY URINEIsolate 1 Escherichia coli >100,000 cfu/mL of ORGANISM 1 Escherichia coli ANTIBIOTIC M.I.C RX STATUS Ampicillin 8 S F Ampicillin/Sulbactam 4 S F Piperacillin/Tazobactam <=4 S F Cefazolin <=4 S F Ceftazidime <=1 S F Ceftriaxone <=1 S F Ertapenem <=0.5 S F Imipenem <=0.25 S F Amikacin <=2 S F Gentamicin <=1 S F Tobramycin <=1 S F Ciprofloxacin <=0.25 S F Levofloxacin <=0.12 S F Nitrofurantoin <=16 S F Trimethoprim/Sulfamethoxazole <=20 S FNormalThe Access Hospital DaytonComment on above:Performed By: #### URCX #### [facility] [address] [place] [address] Dr. Naveed Beatty W MANUAL DIFFon [id number] LYMPH #0.77 103/ulNormal The [facility] Hospital DaytonComment on above:Performed By: #### CBCMAN #### [facility] [address] [place] [address] Dr. Naveed BarronATYPICAL LYMPH %12 %NormalThe Access Hospital DaytonComment on above: Performed By: #### CBCMAN #### [facility] [address] [place] [address] Dr. Naveed León #0.1 103/ulNormal0.0-0.3The [facility]ville HospitalComment on above:Performed By: #### CBCVIKTOR #### [facility] [address] [place] [address] [address] Naveed León %2 %Normal0-5The [facility] Hospital DaytonComment on above:Performed By: #### CBCVIKTOR #### [facility] [address] [place] [place] [address] [address] Naveed Ortiz #0.06 103/ulNormal0.00-0.10The [facility]ville HospitalComment on above:Performed By: #### CBCVIKTOR #### [facility] [address] [place] [address] Dr. Naveed Ortiz %1.0 %Normal0.2-2.0The Access Hospital DaytonComment on above: Performed By: #### IVÁN #### [facility] [address] [place] [address] Dr. Naveed Holloway #NormalThe Access Hospital DaytonComment on above:Performed By: #### IVÁN #### [facility] [address] [place] [address] Dr. Naveed Holloway %NormalThe Access Hospital DaytonComment on above:Performed By: #### IVÁN #### [facility] [address] [place] [address] Dr. Naveed BarronCORRECTED WBCNormal4.0-11.0The Access Hospital DaytonComment on above: Performed By: #### CBCVIKTOR #### [facility] [address] [place] [address] Dr. Naveed Adler #0.38 103/ulNormal0.00-0.70The [facility] Hospital DaytonComment on above:Performed By: #### CBCVIKTOR #### [facility] [address] [place] [address] Dr. Naveed Adler%6.0 %Normal0.9-7.0The Access Hospital DaytonComment on above: Performed By: #### CBCVIKTOR #### [facility] [address] [place] [address] Dr. Naveed BarronHCT44.0 %Okgdpe64.0-48.0The [facility] Hospital DaytonComment on above: Performed By: #### CBCMAN #### [facility] [address] [place] [address] [address] Naveed BarronHGB14.5 g/onJrrhye26.0-16.0The Access Hospital DaytonComment on above: Performed By: #### CBCMAN #### [facility] [address] [place] [address] [address] Naveed Lindo #1.92 103/ulNormal1.20-3.80The [facility] Hospital DaytonComment on above:Performed By: #### CBCVIKTOR #### [facility] [address] [place] [address] [address] Naveed Lindo%30.0 %Cewjmn43.5-60.0The [facility] on above:Performed By: #### CBCVIKTOR #### [facility] [address] [place] [address] Dr. Naveed PatelH25.3 pgCritically low26.7-34.0The [facility] HospitalComun[facility] of mich[facility] on above:Performed By: #### CBCVIKTOR #### [facility] [address] [place] [address] Dr. Naveed PatelHC33.0 g/lyHdborp93.9-35.2The [facility] on above:Performed By: #### CBCMAN #### [facility] [address] [place] [address] [address] Naveed PatelV76.9 fLCritically low81.0-99.0The [facility] Hospital DaytonComuniversity of michigan health on above:Performed By: #### CBCMAN #### [facility] [address] [place] [address] [address] Naveed MadrigalOCYTE #NormalThe [facility] Hospital DaytonComuniversity of mich[facility] health on above: Performed By: #### CBCMAN #### [facility] [address] [place] [address] [address] Naveed MadrigalOCYTE %NormalThe Access Hospital DaytonComment on above: Performed By: #### CBCMAN #### [facility] [address] [place] [address] [address] Naveed Cooper#0.38 103/ulNormal0.30-0.80The [facility] Hospital DaytonComment on above:Performed By: #### IVÁN #### [facility] [address] [place] [address] Dr. Naveed Cooper%6.0 %Normal1.7-12.0The [facility] Hospital DaytonComment on above: Performed By: #### IVÁN #### [facility] [address] [place] [address] Dr. Naveed SaraviaV8.9 fLCritically low9.5-13.5The [facility] Hospital DaytonComment on above:Performed By: #### IVÁN #### [facility] [address] [place] [address] Dr. Naveed Lam #NormalThe Access Hospital DaytonComment on above:Performed By: #### IVÁN #### [facility] [address] [place] [address] Dr. Naveed BossOCYTE %NormalThe Access Hospital DaytonComment on above:Performed By: #### IVÁN #### [facility] [address] [place] [address] Dr. Naveed BarronNRBCNormalThe Access Hospital DaytonComment on above:Performed By: #### IVÁN #### [facility] [address] [place] [address] Dr. Naveed BarronPLT229 103/rvJgxijm551-794Xkg Access Hospital DaytonComment on above: Performed By: #### IVÁN #### [facility] [address] [place] [address] Dr. Naveed BarronRBC5.72 106/ulCritically high4.20-5.40The [facility] on above:Performed By: #### IVÁN #### [facility] [address] [place] [address] Dr. Naveed BarronRDW13.2 %Vxoslt90.0-15.0The [facility] Hospital DaytonComment on above: Performed By: #### IVÁN #### [facility] [address] [place] [address] Dr. Naveed Ojeda #2.75 103/ulNormal1.40-6.50The [facility] Hospital DaytonComment on above:Performed By: #### IVÁN #### [facility] [address] [place] [address] Dr. Naveed Ojeda %43.0 %Lwzgbn45.0-75.0The [facility] Hospital DaytonComment on above: Performed By: #### CBCVIKTOR #### [facility] [address] [place] [address] Dr. Naveed BarronWBC6.4 103/ulNormal4.0-11.0The [facility] on above: Performed By: #### IVÁN #### [facility] [address] [place] [address] Dr. Naveed Nayak URINE PROFILEon 07-28-7374Amiyrjbde Ql (U)NegativeNormal NEGATIVEThe [facility] Hospital DaytonComment on above:Performed By: #### RAFAEL DEGROOT, ERUR #### [facility] [address] [place] [address] Dr. Naveed BarronClarity (U)CLEARNormalCLEARThe [facility]Com[facility] on above: Performed By: #### RAFAEL DEGROOT, ERUR #### [facility] [address] [place] [address] Dr. Naveed Ortizlor (U)YELLOWNormalYELLOWThe [facility] Hospital DaytonComment on above: Performed By: #### JORGEUMARCELLOICNATALI, ERUR #### [facility] [address] [place] [address] Dr. Naveed MontgomeryVINICIO micrscopic examination will be performed if indicated. NormalThe [facility]Com[facility] on above:Performed By: #### PREGUMARCELLOICNATALI, ERUR #### [facility] [address] [place] [address] Dr. Naveed BarronGlucose Ql (U)NegativeNormalNEGATIVEThe [facility] Hospital DaytonComment on above:Performed By: #### PREGUMARCELLOICNATALI, ERUR #### [facility] [address] [address] [address] Naveed BarronHemoglobin Ql (U)LARGEAbnormalNEGATIVEThe [facility] Comment on above:Performed By: #### RAFAEL DEGROOT, ERUR #### [facility] [address] [address] [address] Naveed BarronKetones Ql (U)NegativeNormalNEGATIVEThe [facility] Hospital DaytonComment on above:Performed By: #### PREGRAFAEL Brantley, ERUR #### [facility] [address] [address] [address] Naveed BarronLEUKOCYTESTRACEAbnormalNEGATIVEThe Christ HospitalComment on above:Performed By: #### RAFAEL DEGROOT, ERUR #### [facility] [address] [place] [address] Dr. Naveed Lawrencetrite Ql (U)PositiveAbnormalNEGWood County Hospital Comment on above:Performed By: #### RAFAEL DEGROOT, ERUR #### [facility] [address] [place] [address] Dr. Naveed BarronpH (U)6.0 [pH]Normal5-9The [facility] DaytonComment on above: Performed By: #### RAFAEL DEGROOT, ERUR #### [facility] [address] [place] [address] Dr. Naveed BarronProtein (U) [Mass/Vol]100 mg/dLAbnormalNEGATIVE/ TRACEThe [facility] Hospital DaytonComment on above:Performed By: #### PREGUMARCELLOICRO, ERUR #### [facility] [address] [place] [address] Dr. Naveed BarronSPEC GRAVITY>=1.375Zqfmoiqp2.005-<=1.025[facility] Comment on above:Performed By: #### PREGUMARCELLOICRO, ERUR #### [facility] [address] [place] [address] Dr. Naveed BarronUR MICRO INDINDICATEDNormalThe [facility] Hospital DaytonComment on above: Performed By: #### PREGU, UMICRO, ERUR #### [facility] [address] [place] [address] Dr. Naveed Marcialgen Qn (U)0.2 {Enrique'U}/dLNormal0.2 - 1.0The [facility] HospitalComment on above:Performed By: #### RAFAEL DEGROOT, ERUR #### [facility] [address] [place] [address] Dr. Naveed BarronPREGNANCY URon 67-78-6756DJZKZGCUV, QUALNegativeNormalNEGATIVEThe [facility] Hospital DaytonComment on above:Performed By: #### RAFAEL DEGROOT ERUR #### [facility] [address] [place] [address] Dr. Naveed KolbF CHEM 8 (BAS METB)on 53-11-4964Rxphh gap [Moles/Vol]13.9 mmol/LNormalThe [facility] Hospital DaytonComment on above:Performed By: #### BMP #### [facility] [address] [place] [address] Dr. Naveed BarronCalcium [Mass/Vol]8.9 mg/dLNormal8.5-10.1The [facility] Comment on above:Performed By: #### BMP #### [facility] [address] [place] [address] Dr. Naveed BarronChloride [Moles/Vol]102 mmol/JAjdgdd31-179Sbq [facility] Comment on above:Performed By: #### BMP #### [facility] [address] [place] [address] Dr. Naveed BarronCO2 [Moles/Vol]25.9 mmol/OByekfs29.0-32.0The [facility] Comment on above:Performed By: #### BMP #### [facility] [address] [place] [address] Dr. Naveed BarronCreatinine [Mass/Vol]0.75 mg/dLNormal0.55-1.02The [facility] DaytonComment on above:Performed By: #### BMP #### [facility] [address] [address] [address] Lucio ChangEGFR-AF CYMRO>60Normal>=60The [facility] DaytonComment on above:Performed By: #### BMP #### [facility] [address] [place] [address] Dr. Naveed McnultyGFR-NON AF CYMRO>60Normal>=60The [facility] DaytonComment on above:Performed By: #### BMP #### [facility] [address] [address] [address] Naveed BarronGlucose [Mass/Vol]109 mg/dLCritically ifcn78-373Duo [facility] DaytonComment on above:Performed By: #### BMP #### [facility] [address] [address] [address] Naveed BarronPotassium [Moles/Vol]3.8 mmol/LNormal3.5-5.1The [facility] Comment on above:Performed By: #### BMP #### [facility] [address] [address] [address] Naveed BarronSodium [Moles/Vol]138 mmol/LUdqpht637-994Ntd [facility] Comment on above:Performed By: #### BMP #### [facility] [address] [place] [address] Dr. Naveed BarronUrea nitrogen [Mass/Vol]8.0 mg/dLNormal6.4-19.3The [facility] Hospital DaytonComment on above:Performed By: #### BMP #### [facility] [address] [address] [address] Naveed Kate nitrogen/Creatinine [Mass ratio]10.7 mg/mgNormalThe [facility] DaytonComment on above:Performed By: #### BMP #### [facility] [address] [place] [address] Dr. Naveed BarronURINE MICROSCOPIC ONLYon 14-12-8331EJDKJIXYBXJYEFZUIkbeejnaXDXX SEENThe [facility] DaytonComment on above:Performed By: #### PREGU, UMJARODRO, ERUR #### [facility] [address] [address] [address] Naveed Hernandez identified Cx Nom (U)INDICATEDNormalThSelect Medical Specialty Hospital - Boardman, IncComment on above:Performed By: #### PREGUMARCELLOICRO, ERUR #### [facility] [address] [place] [address] Dr. Naveed Noel SEENNormalNONE SEENThe Christ HospitalComment on above:Performed By: #### PREGUMARCELLOICRO, ERUR #### [facility] [address] [place] [address] Dr. Naveed Ayalaystals LM Nom (Urine sed)NONE SEENNormalNONE SEENThe [facility] HospitalComun[facility] of [facility] on above:Performed By: #### PREGUMARCELLOICRO, ERUR #### [facility] [address] [place] [address] Dr. Lucio ChangEpithelial cells LM Ql (Urine sed)RARENormalNONE SEEN /RAREThe [facility]Com[facility] on above:Performed By: #### PREGUMARCELLOICRO, ERUR #### [facility] [address] [place] [address] Dr. Naveed Franklin SEENNormalNONE SEENThe [facility] HospitalComun[facility] of [facility] on above:Performed By: #### PREGUMARCELLOICRO, ERUR #### [facility] [address] [place] [address] Dr. Naveed BarronWhkppNDR72-46Ykmsteus5-3Rcy [facility] on above: Performed By: #### PREGU UMICRO, ERUR #### [facility] [address] [place] [address] Dr. Naveed BarronWBC2-5AbnormalNONE SEENCleveland Clinic Lutheran Hospital on above: Performed By: #### PREGU UMICRO, ERUR #### [facility] [address] [place] [address] Dr. Naveed Judd PREPon 41-54-8796AOWY CELLSNONE SEENNormalNONE SEENThe [facility] HospitalComun[facility] of [facility] on above:Performed By: #### WP #### [facility] [address] [address] [address] Naveed BarronFUNGAL ELEMENTSNONE SEENKansas City VA Medical CenterE [facility] Comment on above:Performed By: #### WP #### [facility] [address] [place] [address] Dr. Naveed BarronRBC -WET PREPRAREAbnormalNONE SEENThe Christ HospitalComment on above:Performed By: #### WP #### [facility] [address] [place] [address] Dr. Naveed BarronTRICHOMONASNONE SEENNormalNONE SEENThe Christ HospitalComment on above:Performed By: #### WP #### [facility] [address] [place] [address] Dr. Naveed BarronWBC- WET PREPNONE SEENNoadventhealthNONE SEENThe Christ HospitalComment on above:Performed By: #### WP #### [facility] [address] [place] [address] Dr. Naveed Judd PREP BACTERIAMODERATEAbmontgomeryNONE SEENThe [facility] Comment on above:Performed By: #### WP #### [facility] [address] [place] [address] Dr. Naveed BarronFlu A/B Ag Detectionon 48-14-8585Viv A Ag DetectionNegativeNormal NEGMagruder Memorial HospitalComment on above:Result Comment: for Influenza A Antigen Performed By: #### FLUABA #### [facility] [address] [place] [address] Dr. [address] [id number] Icu Specialist: Ilya Allen MDFlu B Ag DetectionNegativeNormalNEGMagruder Memorial HospitalComment on above:Result Comment: for Influenza B Antigen.Performed By: #### FLUABA #### [facility] [address] [place] [address] [place] [address] Icu Specialist: TATY Lackey-CoV-2on 64-66-7457IPBC-CoV-2 (COVID-19) RNA ROXANA+probe Ql (Unsp spec)Not detectedNormalNOTDETMSelect Medical Specialty Hospital - TrumbullComment on above:Result Comment: Rapid NAAT: The specimen is NEGATIVE [...] management decisions. Fact sheet for Healthcare Providers: https://www.fda.gov/media/191232/download Fact sheet for Patients: https://www.fda.gov/media/236908/download Methodology: Isothermal Nucleic Acid AmplificationPerformed By: #### COVRB #### [facility] [address] [place] [address] [place] [address] Icu Specialist: ZEV Lackey PITUITARY WO/W IVCONon [id number] PITUITARY WO/W IVCON* * *Final Report* * * DATE OF EXAM: Jan 19 2022 4:02PM [place] 0314 - MRI PITUITARY WO/W IVCON / [...] may represent pituitary hypoplasia. No pituitary lesion. Manager Wholesale: PSCB Transcribe Date/Time: Jan 20 2022 10:32A Dictated by : WENDY HAYNES MD This examination was interpreted and the report reviewed and electronically signed by: WENDY HAYNES MD on Jan 20 2022 10:39AM EST [id number] Medical CenterCNOVon [id number] Office Visit (REIAV) OSMAN COHEN ([id number]) 4 F Date Time Provider Department 07/02/21 10:00 AM SANFORD DEGROOT During your visit today, we recorded the following information about you: Pulse Blood pressure Weight Height 85/minute 138/61 109.3 kg 1.6 m Buffy Riley Ma 07/02/2021 11:15 AM Signed Exam chaperoned by Buffy Sawyer MD 08/01/2021 5:02 PM Signed [facility] Date:07/02/2021 Consultation Requested By: [...] Hysteroscopy Laparoscopy OPK (Ovulation Predictor Kit) Ovarian [place] Ultrasound Semen Analysis Ultrasound Other (See comments) MENSTRUAL HISTORY: Menarche Age: n/a Length of Cycle: Days: Menstrual Flow: Menstrual Symptoms: No LMP recorded. (Menstrual status: None). 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 No current facility-administered medications on file prior to visit. 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 Time Spent [...] Date Reviewed: 07/02/2021 Re (more content not included)...NormalSelect Medical Specialty Hospital - YoungstownCONLT PROGon [id number] PROGHNO ID: [id number] Author: Sanford Degroot MD Service: ? Author Type: Physician Type: Consult Progress Note Filed: 08/01/2021 5:02 PM Note Text: [facility] Date:07/02/2021 Consultation Requested By: [...] Hysteroscopy Laparoscopy OPK (Ovulation Predictor Kit) Ovarian [place] Ultrasound Semen Analysis Ultrasound Other (See [...] - Cancer Maternal Aunt GENETIC HISTORY: no OCCUPATION/EXERCISE: Occupation: Exercise: Partner Information Partner's Name: n/a Partner's : Partner's MRN: Partner's Ethnicity: Partner's Race: MEDICATIONS: No current outpatient medications on file prior to visit. No current facility-administered medications on file prior to visit. ALLERGIES: [...] rest of the pelvic exam deferred. 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 Time Spent in Counseling and Coordination of Care: 30 minutes. Consultation requested by Dr. Tho Lubin for an opinion regarding primary amenorrhea My final recommendations will be communicated back to the requesting physician by way of shared Medical record or letter to requesting physician via US mail. Sapna Sawyer MDSelect Medical Specialty Hospital - TrumbullEstradiol-17Bon 07-02-2021 Estradiol-17B<25NoBarney Children's Medical CenterComment on above:Result Comment: This test is not suitable for [...] 3243 pg/mL Second trimester : 1561 TO 66782 pg/mL Third trimester : 8285 to >30055 pg/mL Post-menopausal Estradiol reference range: < 41 pg/mL Reference: 1. Estradiol - E2 (Estradiol III) [package insert V 3.0 Dominican]. [facility], [place], [place], October 2015.Performed By: #### FSH, E2, T3, FT4, PROL #### [id number] [place] [id number] #### HPROG #### [address] [address] CKBbr 40-96-1600GMD8.6 mU/mLNormalProMedica Toledo Hospital on above:Result Comment: Reference range: Follicular: 3.5-12.5 Midcycle : 4.7-21.5 Luteal : 1.7- 7.7 Post Menopause: 25.8-134.8Performed By: #### FSH, E2, T3, FT4, PROL #### [address] [address] #### HPROG #### [address] [address] Pdxs T4on 48-65-7143Tldn T4 [Mass/Vol]1.4 ng/dLNormal0.9-1.7 [facility] on above:Performed By: #### FSH, E2, T3, FT4, PROL #### [address] [address] #### HPROG #### [address] [address] UnldzzlXyyyqtoloceeha 60-60-1986LwwkqpdAkrdrzqchaoc03.01 ng/dLNormal <=206.00[facility] on above:Result Comment: (NOTE) INTERPRETIVE INFORMATION for 17-Hydroxyprogesterone in females: Follicular 15 to 70 ng/dL Luteal 35 to 290 ng/dL REFERENCE INTERVAL: 17-Hydroxyprogesterone Qnt, HPLC-MS/MS Access complete set of age- and/or gender-specific reference intervals for this test in the [facility] Test Directory ([email or web address].[email or web address]). This test was developed and its performance characteristics determined by [facility]. It has not been cleared or approved by the US Food and Drug Administration. This test was performed in a CLIA certified laboratory and is intended for clinical purposes. Performed By: [facility] [address] [place] [address] Management Intern: RJ Bonnererformed By: #### FSH, E2, T3, FT4, PROL #### [address] [phone] #### HPROG #### [address] [phone] ZRoi 22-79-0059UN6.2 mU/mLNormalProMedica Toledo Hospital on above:Result Comment: Reference range: Follicular: 2.4-12.6 Midcycle : 14.0-95.6 Luteal : 1.0-11.4 Post menopause: 7.7-58.5Performed By: #### FSH, E2, T3, FT4, PROL #### [address] [phone] #### HPROG #### [address] [phone] 28-72-4505Hsfwillvf4.1 ng/mLNormal4.5-26.8CAdena Fayette Medical Center on above:Performed By: #### FSH, E2, T3, FT4, PROL #### [address] [phone] #### HPROG #### [address] [phone] 44-64-7829P1829 ng/hIGogbtk67-050PmamjvlorSelect Medical Specialty Hospital - Youngstown Comment on above:Performed By: #### FSH, E2, T3, FT4, PROL #### [address] [place] [phone] #### HPROG #### [address] [address] QUQqy 03-24-4690NAR Qn0.945 m[IU]/LNormal0.510-4.300[facility] on above:Result Comment: If the patient is , TSH reference range varies by gestational period: First Trimester (weeks 9-12): 0.180-2.990 mcIU/mL Second Trimester: 0.110-3.980 mcIU/mL Third Trimester: 0.480-4.710 mcIU/mL Wicho Montes et al. A Practical Approach for the Verifications and Determination of Site- and Trimester-Specific Reference Intervals for Thyroid Function tests in . Thyroid, 2019:29:3:412-420.Mauro Yanes, et al. 2017 Guidelines of the Citizen Of [place] Thyroid Association for the Diagnosis and Management of Thyroid Disease during and the . Thyroid, 2017:27:3:315-389. Reference ranges were not locally established for this patient's age group. The normal values are based on the following source: Carlos Alaniz V. Reference Ranges for Adults and Children: Pre-analytical Considerations. [facility] DiagnosticsPerformed By: #### FSH, E2, T3, FT4, PROL #### [facility] [address] [place], [place] [address] #### HPROG #### [facility] [address] [place] [address] Vital Signs Date TimeVital SignValuePerforming IqqunuezeXtzeyfga86-13-1246 14:01-0400Body mass index (BMI) [Ratio]44.99 kg/w5JtczfyBlake Guevara MD Work Phone: [facility] ServicesRkfjnrttiy74-76-1225 14:01-0400Body .03 kgBlake Guevara MD Work Phone: [facility] ServicesWnoyvgswad04-22-2676 14:01-0400Diastolic blood yyzvcfhv33 mm[Hg]Blake Guevara MD Work Phone: [facility] ServicesNncxsqfpbd06-59-8793 14:01-0400Systolic blood mm[Hg]Blake Guevara MD Work Phone: [facility] ServicesMewrejhwnz58-32-1419 14:47-0400Body mass index (BMI) [Ratio]44.99 kg/d6CgeimfBlake Guevara MD Work Phone: [facility]-SullivanXztnmrpyty94-81-0370 14:47-0400Body aeknxz376.03 kgBlake Guevara MD Work Phone: [facility]-SullivanFqciwpweis40-21-4606 14:47-0400Diastolic blood mm[Hg]Blake Guevara MD Work Phone: [facility]-SullivanMmwupabrfj67-89-1881 14:47-0400Systolic blood laemdbyj560 mm[Hg]Blake Guevara MD Work Phone: [facility]-SullivanLueazjmjny27-93-1092 13:29-0400Body [address]maiio368.[address]04-23-2025 13:29-0400Body mass index (BMI) [Ratio]44.1 kg/k6ImrmcacggWilson [address] Hospital04-23-2025 13:29-0400Body iipfpa374.[address]04-23-2025 13:29-0400Diastolic blood uoymoxes27 mm[Hg][facility]04-23-2025 13:29-0400 Heart rate77 /[facility]04-23-2025 13:29-0400 Respiratory rate20 /[facility]04-23-2025 13:29-0400 SaO2% (BldA) [Mass fraction]99 %[facility]04-23-2025 13:29-0400Systolic blood aeskxbbi046 mm[Hg][facility] 10-29-2023 04:31-0400Diastolic blood fkrblasr72 mm[Hg][place] [facility]05-31-2024 04:31-0400Heart rate88 /minNo[facility]05-31-2024 04:31-0400Mean blood mm[Hg][place] [facility]05-31-2024 04:31-0400 Respiratory rate18 /minNoah [facility]05-31-2024 04:31-8909YzI4% (BldA) [Mass fraction]99 %[place] [address] [place], [place] 3772305-31-2024 04:31-0400 Systolic blood venuthmq463 mm[Hg][place] [address] [place], [place] 3772305-31-2024 04:16-0400 Diastolic blood hprsfmse97 mm[Hg][place] [address] [place], [place] 3772305-31-2024 04:16-0400Heart rate89 /minNoah [place] [address] [place], [place] 3772305-31-2024 04:16-0400Mean blood cwzttqle11 mm[Hg][place] [address] [place], [place] 3772305-31-2024 04:16-0400 Respiratory rate19 /minNoah [place] [address] [place], [place] 3772305-31-2024 04:16-5408WvM9% (BldA) [Mass fraction]99 %[place] [address] [place], [place] 3772305-31-2024 04:16-0400 Systolic blood qwklzhai284 mm[Hg][place] [address] [place], [place] 3772305-31-2024 03:54-0400 Diastolic blood dyikggan38 mm[Hg][place] [address] [place], [place] 3772305-31-2024 03:54-0400Heart rate89 /minNoah [place] [address] [place], [place] 3772305-31-2024 03:54-0400Mean blood psbowvdw07 mm[Hg][place] [address] [place], [place] 3772305-31-2024 03:54-0400 Respiratory rate16 /minNo[place] [address] [place], [place] 3772305-31-2024 03:54-5740VfY7% (BldA) [Mass fraction]100 %[place] [address] [place], [place] 3772305-31-2024 03:54-0400 Systolic blood ovrjdpdf925 mm[Hg][place] [address] [place], [place] 377[address]5-31-2024 02:30-0400Body lyhwuoqssoe89.78 [degF][place] [address] [place], [place] 3772305-31-2024 02:30-0400Heart rate85 /minNoah [place] [address] [place], [place] 3772305-31-2024 02:30-0400 Respiratory rate18 /minNoah [place] [address] [place], [place] 3772305-07-2024 22:20-0400Blood Pressure LocationKaylinn Dokken [address] [place], [place] 3772305-07-2024 22:20-0400 Diastolic blood ueyqdgcq42 mm[Hg]Kaylinn Dokken [address] [place], [place] 3772305-07-2024 22:20-0400Heart rate73 /minKaylinn Dokken [address] [place], [place] 3772305-07-2024 22:20-0400Mean blood sirkttif06 mm[Hg]Kaylinn Dokken [address] [place], [place] 3772305-07-2024 22:20-7461LqO3% (BldA) [Mass fraction]98 %Kaylinn Dokken [address] [place], [place] 3772305-07-2024 22:20-0400 Systolic blood lugvqxpz71 mm[Hg]Kaylinn Dokken [address] [place], [place] 3772305-07-2024 21:31-0400Blood Pressure LocationKaylinn Dokken [address] [place], [place] 3772305-07-2024 21:31-0400 Diastolic blood awkcynvx30 mm[Hg]Kaylinn Dokken [address] [place], [place] 3772305-07-2024 21:31-0400Heart rate71 /minRomeylinn Dokken [address] [place], [place] 3772305-07-2024 21:31-0400Mean blood kshmhyts30 mm[Hg]Kaarmidainn Dokken [address] [place], [place] 3772305-07-2024 21:31-0400 Respiratory rate16 /minRomeylinn Dokken [address] [place], [place] 3772305-07-2024 21:31-9318DzA7% (BldA) [Mass fraction]97 %Anainn Dokken [address] [place], [place] 3772305-07-2024 21:31-0400 Systolic blood cbubavql219 mm[Hg]Kaarmidainn Dokken [address] [place], [place] 3772305-07-2024 20:38-0400Body fvjrrebulaw86.7 [degF]Kaylinn Dokken [address] [place], [place] 3772305-07-2024 20:38-0400 Diastolic blood mayhbbhu00 mm[Hg]Kaylinn Dokken [address] [place], [place] 3772305-07-2024 20:38-0400Heart rate79 /minRomeylinn Dokken [address] [place], [place] 3772305-07-2024 20:38-0400 Respiratory rate18 /minRomeylinn Dokken [address] [place], [place] 3772305-07-2024 20:38-2655HlK2% (BldA) [Mass fraction]99 %Kaylinn Dokken [address]05-07-2024 20:38-0400 Systolic blood jkzjwuug248 mm[Hg]Deana Mohan [address] [place], [place] 6201603-13-2024 00:19-0400 Diastolic blood wanozgwk38 mm[Hg][place] [address] [place], [place] 6201603-13-2024 00:19-0400Heart rate83 /minNoah Mile [address] [place], [place] 6201603-13-2024 00:19-0400Mean blood yypgwvjz29 mm[Hg][place] [address] [place], [place] 3772303-13-2024 00:19-0400 Respiratory rate18 /minNoah [place] [address] [place], [place] 3772303-13-2024 00:19-2159LwG3% (BldA) [Mass fraction]99 %[place] [address] [place], [place] 6201603-13-2024 00:19-0400 Systolic blood yyevlogb09 mm[Hg][place] [address] [place], [place] 6201603-12-2024 23:43-0400Heart rate86 /minNoah [place] [address] [place], [place] 6201603-12-2024 23:43-0400 Respiratory rate16 /minNo[place] [address] [place], [place] 6201603-12-2024 23:31-0400 Diastolic blood mm[Hg][place] [address] [place], [place] 6201603-12-2024 23:31-0400Heart rate92 /minNoah [place] [address] [place], [place] 6201603-12-2024 23:31-0400Mean blood krxagmjq51 mm[Hg][place] [address] [place], [place] 6201603-12-2024 23:31-0400 Respiratory rate16 /minNoah Mile [address] [place], [place] 6201603-12-2024 23:31-1481ZjO9% (BldA) [Mass fraction]97 %[place] [address] [place], [place] 6201603-12-2024 23:31-0400 Systolic blood katjmqce997 mm[Hg][place] [address] [place], [place] 3772303-12-2024 22:54-0400Body oiwngowqrin60.78 [degF][place] [address] [place], [place] 3772303-12-2024 22:54-0400 Diastolic blood coxwgasn43 mm[Hg][place] [address]03-12-2024 22:54-0400Heart rate96 /minNoyennifer Mile [address] [place], [place] 6201603-12-2024 22:54-1736YdN6% (BldA) [Mass fraction]98 %[place] [address] [place], [place] 6201603-12-2024 22:54-0400 Systolic blood mm[Hg][place] [address] [place], [place] 3772302-11-2024 12:01-0500Body thkwfoqmewe75.81 [degF]Yahir Chacon DO Work Phone: [facility]ullivanPigpxtndyi58-87-9803 12:01-0500Diastolic blood qdqizlib26 mm[Hg]Yahir Petejose antonio DO Work Phone: [facility]SullivanJedgmebdft19-61-6021 12:01-0500Heart rate85 /min Yahir Chacon DO Work Phone: [facility]ullivanGdhqjfosoc47-78-2395 12:01-6010FhV8% (BldA) [Mass fraction]98 %Yahir Chacon DO Work Phone: [facility]SullivanKmcyytlqxx12-35-0374 12:01-0500Systolic blood ajmcrurf338 mm[Hg]Yahir Chacon DO Work Phone: [facility]SullivanSycigqsyjk50-85-4442 01:07-0500Blood Pressure LocationNoah Mile [address] [place], [place] 3772301-24-2024 01:07-0500 Diastolic blood rjnzsukg31 mm[Hg][place] [address] [place], [place] 3772301-24-2024 01:07-0500Heart rate78 /minNoah [place] [address] [place], [place] 3772301-24-2024 01:07-0500Mean blood rofczetz587 mm[Hg][place] [address] [place], [place] 3772301-24-2024 01:07-0500 Respiratory rate16 /minNoah Mile [address] [place], [place] 3772301-24-2024 01:07-4733IbK0% (BldA) [Mass fraction]98 %[place] [address] [place], [place] 3772301-24-2024 01:07-0500 Systolic blood mm[Hg][place] [address] [place], [place] 6201601-23-2024 23:00-0500 Diastolic blood nmwayfay47 mm[Hg][place] [address] [place], [place] 6201601-23-2024 23:00-0500Heart rate87 /minNoah [place] [address] [place], [place] 6201601-23-2024 23:00-0500Mean blood wfmictiw62 mm[Hg][place] [address] [place], [place] 3772301-23-2024 23:00-2808TsD4% (BldA) [Mass fraction]97 %[place] [address] [place], [place] 6201601-23-2024 23:00-0500 Systolic blood piefwuyu829 mm[Hg][place] [address] [place], [place] 6201601-23-2024 21:53-0500Blood Pressure LocationNoah [facility] [address] [place], [place] 6201601-23-2024 21:53-0500 Diastolic blood mwxenmzp76 mm[Hg][place] [address] [place], [place] 3772301-23-2024 21:53-0500Heart rate98 /minNoah [place] [address] [place], [place] 3772301-23-2024 21:53-0500Mean blood nuyblkfa68 mm[Hg][place] [address] [place], [place] 3772301-23-2024 21:53-0500 Respiratory rate16 /minNoah [place] [address] [place], [place] 6201601-23-2024 21:53-6294UtG4% (BldA) [Mass fraction]98 %[place] [address] [place], [place] 6201601-23-2024 21:53-0500 Systolic blood wyvtwxug963 mm[Hg][place] [address] [place], [place] 6201601-23-2024 20:51-0500Body hafphqujwrs01.24 [degF][place] [address] [place], [place] 6201601-23-2024 20:51-0500Heart rate99 /minNoah [place] [address] [place], [place] 6201601-20-2024 14:57-0500Blood Pressure LocationFRANCISCO KIDD 112-3191Yjslxw-UurjfGeorgetown [facility]al [facility] Bmrt53-59-9207 14:57-0500Body hdxciwputyd95.42 [degF]EDNA KIDD 477-6353Kqfsmv-EabbnGeorgetown Behavioral Hospital [facility] Vgkf02-67-2713 14:57-0500Diastolic blood vnyhbtgd33 mm[Hg]EDNA KIDD 882-6857Oetjqt-EfpggGeorgetown Behavioral Hospital [facility] Oasc87-41-5349 14:57-0500Heart rate95 /minFRANCKRYSTYNA KIDD 956-0117Cwtumy-TubcaGeorgetown Behavioral Hospital [facility] Wlqv25-62-4142 14:57-9633NfB6% (BldA) [Mass fraction]97 %[facility] 341-1937Sheywz-UxntaGeorgetown Behavioral Hospital [facility] Zkwb91-34-5146 14:57-0500Systolic blood mm[Hg][facility] 039-4861Xhqtdf-YvwdgGeorgetown Behavioral [facility] Zjcg70-94-5773 13:25-0500Body svqqqqawdtk31.3 [degF]Rosalee Mcleod Other [employer] Other 01-13-2024 13:25-0500Body ikimml92.72 kgRosalee Mcleod Other [employer] Other 01-13-2024 13:25-0500Diastolic blood mm[Hg] Rosalee Mcleod Other [employer] Other 01-13-2024 13:25-0579ZcP8% (BldA) [Mass fraction]97 % Rosalee Mcleod Other [employer] Other 01-13-2024 13:25-0500Systolic blood wfimmzpa803 mm[Hg] Rosalee Mcleod Other [employer] Other 11-05-2023 12:16-0500Body nunwppytaxi61.06 [degF] [facility]11-05-2023 12:16-0500Diastolic blood qshunvct62 mm[Hg][facility]11-05-2023 12:16-0500Heart rate89 /minProMedica [facility] Hospital11-05-2023 12:16-0500Respiratory rate16 /[facility] 04-04-2023 12:16-9008SoL9% (BldA) [Mass fraction]98 %[facility]11-05-2023 12:16-0500Systolic blood lweptoej009 mm[Hg][facility]09-01-2023 12:46-0400Body gtxgtyphoyf62.24 [degF][facility]09-01-2023 12:46-0400Diastolic blood zqrlzned87 mm[Hg][facility]09-01-2023 12:46-0400Heart rate70 /[facility]09-01-2023 12:46-0400Respiratory rate18 /[facility] 01-29-2023 12:46-2699RyS5% (BldA) [Mass fraction]98 %[facility]09-01-2023 12:46-0400Systolic blood zryiwkgp684 mm[Hg][facility]08-19-2023 15:39-0400Body okqfahiqixz27.24 [degF]Gus Mcgowan [facility]08-19-2023 15:39-0400 Diastolic blood wfctsqaw68 mm[Hg]Gus Mcgowan [facility]08-19-2023 15:39-0400Heart rjrb843 /minGus Mcgowan [address] [place], [place] 6201608-19-2023 15:39-0400 Respiratory rate16 /Wiley Mcgowan [facility]08-19-2023 15:39-2266DnW3% (BldA) [Mass fraction]99 %Gus Mcgowan [facility]08-19-2023 15:39-0400 Systolic blood lzczplis317 mm[Hg]Gus Mcgowan [facility]07-22-2023 11:20-0400Body ppbuuyeeovo02.9 [degF]DO Minal Petznick Work Phone: [phone])[address]07-22-2023 11:20-0400 Diastolic blood mm[Hg]DO Minal Petznick Work Phone: [phone])[address]07-22-2023 11:20-0400 Heart rate79 /minDO Minal Petznick Work Phone: 1(524)[address]07-22-2023 11:20-0400 Respiratory rate18 /minDO Minal Petznick Work Phone: [phone])[address] [place], [place] 8643607-22-2023 11:20-0400 SaO2% (BldA) [Mass fraction]98 %DO Minal Petznick Work Phone: [phone])[address]84 [address]07-22-2023 11:20-0400 Systolic blood maosdmch023 mm[Hg]DO Minal Petznick Work Phone: [phone])[address]07-22-2023 11:19-0400 Body hcamhg707.1 cmDO Minal Petznick Work Phone: [phone] [place], [place] 8643607-22-2023 11:19-0400 Body nwvocu55.5 kgDO Minal Petznick Work Phone: [phone])[address]07-02-2023 09:22-0400 Body yirxiktckjd46.06 [degF]Nikolay Valencia [address] [place], [place] 1410307-02-2023 09:22-0400 Diastolic blood cpiurrnf55 mm[Hg]Nikolay Valencia [address] [place], [place] 6201607-02-2023 09:22-0400Heart rate84 /minNikolay Valencia [address] [place], [place] 6201607-02-2023 09:22-0400 Respiratory rate16 /minTim Erik [address] [place], [place] 6201607-02-2023 09:22-8473GcG4% (BldA) [Mass fraction]99 %Nikolay Valencia [address] [place], [place] 6201607-02-2023 09:22-0400 Systolic blood gcrvuczx799 mm[Hg]Nikolay Valencia [address] [place], [place] 3772306-28-2023 11:20-0400Body osenrroolho91.06 [degF]Satish Thao [address]06-28-2023 11:20-0400 Diastolic blood rhbeajrq36 mm[Hg]Satish Thao [address]06-28-2023 11:20-0400 Respiratory rate16 /minSatish Thao [address]06-28-2023 11:20-2711FaU4% (BldA) [Mass fraction]99 %Satish Thao [address] [place], [place] 6201606-28-2023 11:20-0400 Systolic blood pakvnikh199 mm[Hg]Satish Thao [address] [place], [place] 6201606-17-2023 23:52-0400 Diastolic blood kruwcvuv03 mm[Hg]Astrit [facility] 11-14-2022 23:52-0400Heart rate88 /minAstrSelect Medical Specialty [facility]06-17-2023 23:52-0400Hourly RoundingAstrit [facility]06-17-2023 23:52-0400Respiratory rate18 /minProMedica Memorial Hospital06-17-2023 23:52-4914IsH3% (BldA) [Mass fraction]97 %[facility]06-17-2023 23:52-0400Systolic blood pressure 129 mm[Hg][facility]06-17-2023 23:12-0400Body oiqrlwjiuln36.24 [degF][facility]06-17-2023 23:12-7279fujparbytjymu3.96[facility] HospitalComment on above:Result Comment: ^~:!ZScore [facility] SystemGHH43-51-4734 23:12-0400Diastolic blood bfguzcqe27 mm[Hg][facility]06-17-2023 23:12-0400Heart rate66 /minProMedica Memorial Hospital06-17-2023 23:12-0400Height/Length Jerxotwrnc67.09[facility] HospitalComment on above:Result Comment: ^~:!Percentile [facility] SystemZPM54-80-7888 23:12-0400Height/Length Z-Score0.10AstSelect Medical Specialty [facility] Comment on above:Result Comment: ^~:!ZScore [facility] SystemOFS96-47-3840 23:12-0400 Hourly RoundingProMedica Memorial Hospital06-17-2023 23:12-0400 Respiratory rate16 /minProMedica Memorial Hospital06-17-2023 23:12-9784CnE8% (BldA) [Mass fraction]97 %[facility]06-17-2023 23:12-0400Systolic blood cmcubnek308 mm[Hg][facility]06-17-2023 23:12-5495vhibbi8.16[facility] HospitalComment on above:Result Comment: ^~:!ZScore Source [facility] 11-14-2022 23:12-0400Weight Dktpiavftg60.45 %Tim AndersonMercy Health Willard HospitalComment on above:Result Comment: ^~:!Percentile [facility] 10-29-2022 20:05-0400Body .1 cmDO Minal Petznick Work Phone: [phone] [place], [place] 8643606-01-2023 20:05-0400 Body ivzjnylcnts90 [degF]DO Minal Petznick Work Phone: [phone] [place], [place] 8643606-01-2023 20:05-0400 Body .2 kgDO Minal Petznick Work Phone: [phone] [place], [place] 8643606-01-2023 20:05-0400 Diastolic blood xvlxwvym65 mm[Hg]DO Minal Petznick Work Phone: [phone] [place], [place] 8643606-01-2023 20:05-0400 Heart rate94 /minDO Minal Petznick Work Phone: [phone] [place], [place] 8643606-01-2023 20:05-0400 Respiratory rate20 /minDO Minal Petznick Work Phone: [phone] [place], [place] 8643606-01-2023 20:05-0400 SaO2% (BldA) [Mass fraction]100 %DO Minal Petznick Work Phone: [phone] [place], [place] 8643606-01-2023 20:05-0400 Systolic blood mm[Hg]DO Minal Petznick Work Phone: [phone] [place] [address] Encounters Encounter DateEncounter TypeCare ProviderFacilityStart: 01-02-2025 End: 80-45-0916Hvrlbryjw department patient visitChkatarzyna Loco [facility]: 01-01-2025 End: 56-55-2066Emswmhggv department patient visitTim Cardenascility:[facility] Start: 11-25-2024 End: 20-82-2933Dijxadawx department patient visitSamuel Ghencian [facility] Start: 10-19-2024 End: 68-90-8594Ksbwop outpatient visit 10 minutesBlake Guevara MD Work Phone: [facility] SWS OBComment on above:PCOS (polycystic ovarian syndrome); General counseling and advice on contraceptive management; Encounter for gynecological examinationStart: 10-19-2024 End: 10-71-8178Hvdpazx encounter statusBlake Guevara MD Work Phone: [facility] HealthcareStart: 10-19-2024 End: 65-11-1126ososwsroybWWELDN P JONESNot AvailableStart: 09-27-2024 End: 94-33-5457Ohlaeyk encounter statusBlake Guevara MD Work Phone: [facility] HealthcareStart: 09-27-2024 End: 05-40-4404Roylcuki preventive med est patient 18-39 yrsBlake Guevara MD Work Phone: [facility] OBComment on above:Encounter for screening for cervical cancer (Primary Dx); Encounter for gynecological examination without abnormal finding; PCOS (polycystic ovarian syndrome)Start: 09-27-2024 End: 30-20-7056smgvrziaeyJUBLHD P JONESNot AvailableStart: 09-20-2024 End: 16-38-8850cdawqtathfDslipjvddSumma Health [facility] Work Phone: Start: 09-20-2024 End: 96-61-1227Fomwvav encounter procedureCarolinaeast Medical Center Phys[facility] GroupCAP[facility] Work Phone: Start: 10-29-2023 End: 22-13-9281Lnchevpsc department patient visitTroy Treadwell [facility] Start: 10-05-2023 End: 85-73-6070Zwmqvrgct department patient visitDeana Mohan [facility] Start: 08-10-2023 End: 86-03-9772Nonayupof department patient visitNoyennifer Treadwell [facility] Start: 07-11-2023 End: 91-83-9509Rtfqxi outpatient visit 15 minutesSarahry Chacon DO Work Phone: [facility] UCComment on above:Viral URI (Primary Dx) Start: 06-22-2023 End: 71-70-9120Awwjaprvq department patient visitNoyennifer Treadwell [facility] Start: 06-19-2023 End: 94-84-5600jornajhzsxYNMJIZTEJ ORMYRIAMFacility:CC NorwalWItart: 06-19-2023 End: 78-79-6035Qathvwl encounter procedureFRPEACEHEALTH SOUTHWEST [facility] KIDD 900-5741Bnrqvg-ZbmdzGeorgetown [facility]al [facility] Start: 06-12-2023 End: 93-51-9233ehdfalrirdSlfn Hahn Other [place] [employer] Other Start: 56-64-4256Qepcjc outpatient visit 15 minutes [facility]: 04-04-2023 End: 00-90-8994Yenhyyfkr department patient visitAstrit [facility] Start: 03-19-2023 End: 07-24-0201Fpzdisnos department patient visitTeja Beth [facility]: 01-29-2023 End: 05-42-3151Fmmkjpago department patient visitAstrit [facility] Start: 01-16-2023 End: 54-72-2905Lhqaxttey department patient visitGus Mcgowan [facility] Start: 12-19-2022 End: 28-56-0326Sthxefoor department patient visitTeja Beth Facility:[facility] Hospitaltart: 12-19-2022 End: 38-23-3389Fusbzmxpk department patient visitDO Minal Newman Work Phone: [facility] Work Phone: Start: 11-29-2022 End: 18-12-9114Vjintdrvy department patient visitNikolay Valencia [facility] Start: 11-25-2022 End: 79-56-3907Yuhtqlzcd department patient visitSatish Thao [facility] Start: 11-14-2022 End: 50-41-4605Icxellltn department patient visitAstrcaleb Feng HarithaSelect [facility] Start: 11-09-2022 End: 92-76-3733Kevljuavy department patient visitNoyennifer GuallpaHaroon TreadwellFacility:[facility] Start: 10-29-2022 End: 47-60-2366Crsoxhqom department patient visitCodavid Platt Facility:[facility] Hospitaltart: 10-29-2022 End: 04-23-1307Quwmprjui department patient visitDO Minal Newman Work Phone: [facility] Work Phone: Start: 08-26-2022 End: 64-43-0335mlkytgniazAASBEY DIAB .Facility:Q1Hceaf: 08-04-2022 End: 93-66-4186Jasuxxzup department patient visitMAPARVIZ Humphries [facility] Madisontart: 07-13-2022 End: 03-76-1635opbhfauzkmZDBQEK RODRIGUEZ .Facility:H4Rkqdl: 06-17-2022 End: 09-63-4045omjqpstnggIT DOCTOR MISCFacility:B1Umtef: 06-08-2022 End: 21-79-7605kiwyzlmunbBA DOCTOR MISCFacility:J6Llfxs: 05-20-2022 End: 93-63-4295Cfaagilst department patient visitPRHAMMOND GENERAL HOSPITALAditi Moreno [facility]: 03-06-2022 End: 92-78-1060rnfwpoqcxiGqnts Smolen PA-C Work Phone: Reproductive Endocrinology InfertilityComment on above:Pituitary hypoplasia (Primary Dx)Start: 03-06-2022 End: 79-39-1342Hxfotvrwfnoj consultation with Brennon Ashford PA-C Work Phone: [facility]Start: 01-19-2022 End: 01-92-3397Gjrlcshwgf hospital visit by physicianMri [facility] (I-Stat/1.5t) Work Phone: [facility]RON HOSPComment on above:Amenorrhea [N91.2] Procedures DateProcedureProcedure DetailPerforming ClinicianStart: 16-49-3061Ynhunitm total Amalia Maliha DO Work Phone: Start: 75-18-7349HRPHUAOR STATUS REPORTGloria Maliha DO Work Phone: Start: 54-37-4624CBU, APT HPV,RFX 16/18,45Penola Mustapha Guevara MD Work Phone: start: 58-84-4578NIKP-CoV-2, Influenza & RSV (PCR)DO Minal Newman Work Phone: Plan of Treatment DateCare ActivityDetailAuthorStart: 59-44-2503Zhttqcnyc vaccinationInfluenza Vaccine (Season Ended)[facility] HealthcareStart: 10-19-2024 End: 97-56-1361Kpkjrlv encounter ouobrwocd44/22/2025 2:00 PM EDT Office Visit [facility] [address] [place] [id number] Blake Guevara MD [address] [place] [address] [facility] OBStart: 10-19-2024 End: 56-71-9426Tzbpjvsxteat / ancillary services styrcwnjvx36/22/2025 1:00 PM EDT Ancillary Procedure [facility] [address] [place] [address] [facility] OBStart: 09-27-2024 End: 96-55-1759Ygvvosr, fastingInsulin, fasting Lab Routine PCOS (polycystic ovarian syndrome) Expected: 09/27/2024 (Approximate),Expires: 09/27/2025NOCT HealthcareComment on above:Expected: 09/27/2024 (Approximate), Expires: 09/27/2025Start: 09-27-2024 End: 20-94-4151XBQE Diagnostic ProfilePCOS Diagnostic Profile Lab Routine Encounter for screening for cervical cancer Expected: 09/27/2024 (Approximate), Expires: 09/27/2025[facility] Healthcare Work Phone: Comment on above:Expected: 09/27/2024 (Approximate), Expires: 09/27/2025Start: 09-27-2024 End: 53-98-9529JdjyvtuyspiqAxoqfsretfda Lab Routine Encounter for screening for cervical cancer Expected: 09/27/2024 (Approximate), Expires: 09/27/2025[facility] HealthcareComment on above:Expected: 09/27/2024 (Approximate), Expires: 09/27/2025Start: 64-13-3396Lxgfgkfnt vaccinationInfluenza Vaccine (#1)[facility] HealthcareStart: 73-04-7781Nrkkreyxg vaccinationINFLUENZA (#1)[facility] Start: 37-38-2885Ypkwb microalbumin profileDTAP,TDAP,TD (1 - Tdap)[facility]: 34-81-8737ISVONCBPHN ASSESSMENTDEPRESSION ASSESSMENTCity Hospitaltart: 64-67-4442YJSVGVDXR SCREENING (18-24)CHLAMYDIA SCREENING (18-24) [facility]: 83-12-6596UN (GONORRHEA) SCREENING (18-24)GC (GONORRHEA) SCREENING (18-24)[facility]: 02-24-6094FCKEBLXSC C SCREENINGHEPATITIS C SCREENINGCity Hospitaltart: 42-11-6650ORY SCREENINGHIV SCREENINGCity Hospitaltart: 25-52-9363ANHE TO ADULT TRANSITION ANNUAL ASSESSMENTPEDS TO ADULT TRANSITION ANNUAL ASSESSMENTCity Hospitaltart: 60-42-2462Kifdq depression screening assessmentDEPRESSION SCREENINGCity Hospitaltart: 20-53-6262VXBX TO ADULT TRANSITION INITIAL DISCUSSIONPEDS TO ADULT TRANSITION INITIAL DISCUSSION [facility]: 37-33-3602CKI VACCINE (1 - 2-dose series)HPV VACCINE (1 - 2-dose series)[facility]: 16-37-9728RMZOGTWDWZUZH B: Consider based on risk (1 of 2 - Risk Bexsero 2-dose series)MENINGOCOCCAL B: Consider based on risk (1 of 2 - Risk Bexsero 2-dose series)[facility]: 05-22-2003 COVID-19 VACCINE (#1)COVID-19 VACCINE (#1)[facility]: 2002 HEPATITIS B (1 of 3 - 3-dose series)HEPATITIS B (1 of 3 - 3-dose series) [facility] OhioCortisolCortisol Lab Routine PCOS (polycystic ovarian syndrome) Ordered: 09/27/2024[facility] Work Phone: comment on above:Ordered: 09/27/2024Hemoglobin A1c/Hemoglobin.total in BloodHemoglobin A1c Lab Routine PCOS (polycystic ovarian syndrome) Ordered: 09/27/2024[facility]ullivanComment on above:Ordered: 09/27/2024Mri brain brain stem w/o w/contrast materialMRI PITUITARY WO/W IVCON Radiology Routine Amenorrhea 01/19/2022 4:02 PM [facility] Work Phone: [facility] EducationUniversity [facility] Work Phone: Patient referralUniversity Hospitals [facility] Work Phone: [facility] Immunizations Immunization DateImmunizationNotesCare DzivnenoEsvvnuza88-69-1140Ivuykr Purple Cap SARS-CoV-2 VaccinationAnthry Chacon DO Work Phone: [phone] [place], [place] [address]Agtdzxwglg49-68-9865Hxctcx Purple Cap SARS-CoV-2 VaccinationAnthry Chacon DO Work Phone: [phone] [place], [place] [address]Dbrzdyotjs95-34-2381xrfgyqlqnfpqt polysaccharide (groups A, C, Y and W-135) diphtheria toxoid conjugate vaccine (MCV4P)Yahir Chacon DO Work Phone: [phone] [place], [place] [address]Zqtfjnpdgu83-70-6434rzyzeqwxz, seasonal, injectable, preservative freeYahir Chacon DO Work Phone: [phone] [place], [place] [address]Bpaszatusr17-87-7182dfenqbdbi virus vaccine, unspecified formulationAnthry Chacon DO Work Phone: [phone] [place], [place] [address]Gpufjwnmmo98-86-8001tzkrijldbguzm polysaccharide (groups A, C, Y and W-135) diphtheria toxoid conjugate vaccine (MCV4P)Yahir Chacon DO Work Phone: [phone] [place], [place] [address]Mbfnblkulw58-50-6927cqhgayj toxoid, reduced diphtheria toxoid, and acellular pertussis vaccine, adsorbedAnthry Chacon DO Work Phone: [phone] [place], [place] [address]Qyduxvygsd54-03-6145jbprggsil, seasonal, injectable, preservative freeYahir Chacon DO Work Phone: [phone] [place], [place] [address]Wuiyxaycko76-73-0192xfrvaeiuly, tetanus toxoids and acellular pertussis vaccine, unspecified formulationAnthry Chacon DO Work Phone: [phone] [place], [place] [address]Sqbsxadzjo50-15-8466nejkqao, mumps and rubella virus vaccineAnthry Chacon DO Work Phone: [phone] [place], [place] [address]Nsxylpkkxm27-13-7860kzhhceycnr vaccine, inactivatedAnthry Chacon DO Work Phone: [phone] [place], [place] [address]Wdqewyxzvq14-81-5741rxwyapbsh virus vaccine Yahir Chacon DO Work Phone: [phone] [place], [place] [address]Tnlrewxlzm07-01-2450kmrumfnpad, tetanus toxoids and acellular pertussis vaccine, unspecified formulationAngel Medical Centerry Chacon DO Work Phone: [phone] [place], [place] [address]Jxmcyspmjh07-57-1068asiraikwwro influenzae type b vaccine, conjugate unspecified formulationAnthry Chacon DO Work Phone: [phone] [place], [place] [address]Cojgxpujvv25-09-4868izpwucgxrq vaccine, inactivatedAnthry Chacon DO Work Phone: [phone] StreetJbqgrzkyto54-00-7661fzrdibrrooj influenzae type b vaccine, conjugate unspecified formulationAnthry Chacon DO Work Phone: [phone] [place], [place] [address]Usiwrqcoht60-78-8468sgtgcefmi B vaccine, pediatric or pediatric/adolescent dosageAnthry Chacon DO Work Phone: [phone] [place], [place] [address]Acpbmlthfo35-67-2645mhxcvgebaycy conjugate vaccine, 7 valentAnthony Ines DO Work Phone: [phone] [place], [place] [address]Uomflvjogx66-03-9712sdkvjvzbj virus vaccine Yahir Chacon DO Work Phone: [phone] [place], [place] [address]Ayxeyttvwb68-59-3379qstaidl, mumps and rubella virus vaccineAnthry Chacon DO Work Phone: [phone] [place], [place] [address]Skwrpwivva48-60-3523rqsuafcbec, tetanus toxoids and acellular pertussis vaccine, unspecified formulationAnthry Chacon DO Work Phone: [phone] StreetMqlfqavzuz14-23-1791npysctuavetb conjugate vaccine, 7 valentAnthony Ines DO Work Phone: [phone] StreetWhlmrvukmz49-39-6421rdjsenfcrn, tetanus toxoids and acellular pertussis vaccine, unspecified formulationAnthry Chacon DO Work Phone: [phone] StreetUsdtcpfhqy74-12-0468jdegikwkntd influenzae type b conjugate and Hepatitis B vaccineAnthry Chacon DO Work Phone: [phone] [place], [place] [address]Elukfygday82-21-2922wpmtavsrakec conjugate vaccine, 7 valentAnthony Ines DO Work Phone: [phone] [place], [place] [address]Vlirgplhcp78-85-7866lcxgxoqbei vaccine, inactivatedAnthry Chacon DO Work Phone: [phone] [place], [place] [address]Ayqytvhecd38-78-6332erefokejsd, tetanus toxoids and acellular pertussis vaccine, unspecified formulationAnthry Petemond DO Work Phone: [facility]Wjzkcavrpu12-39-9749cqlwmwxpoqt influenzae type b conjugate and Hepatitis B vaccineYahir Chacon DO Work Phone: [facility]ullivanSzfkuurzxd16-79-6234nvenojjjstbz conjugate vaccine, 7 valentAnthony Ines DO Work Phone: [facility]ullivanXytrhzdyry10-82-3624dxtgqehpqz vaccine, inactivatedAnthry Chacon DO Work Phone: [place] [facility] Payers DatePayer CategoryPayerPolicy [id number] Cancer CenterBS Member Subscriber Plan / Payer (Effective 2023-Present) Name: Osman Cohen Relation to Subscriber: Self Name: Osman Cohen Payer ID: Not on file Type: Not on file Address: [address] [place] [id number] [id number] Cross Blue [id number] 2.16.840.1.130663.19 46-91-6877Fokpsza Health Insurance 1.2.840.193661.1.13.693.2.7.9.912653.236[id number] [id number]-[id number] 1.2.840.573455.1.13.159.2.7.3.631212.315 2020MedicaidCARESOURCE MEDICAID [facility] MEDICAID [id number] 2020-Present [phone] [address] [place] [address] [id number] [id number] 2.16.840.1.163547.3.57[id number] 2.16.840.1.206040.3.57[id number] 2.16840.1.842338.3.57[id number] 2.16840.1.600159.3.57[id number] 2.16840.1.697484.3.57[id number] 2.840.1.692859.3.57[id number] 2.840.1.706902.3.57[id number] 2.840.1.158854.3.579.[id number] 2.16840.1.162229.3.57[id number] 2.16840.1.067839.3.579.2.09627-72-4122Wdfaaoi87117564 2.16840.1.348448.3.57[id number] 2.16840.1.858388.3.57[id number] 2.16840.1.717834.3.579.[id number] 2.16840.1.643501.3.57[id number] 2.16840.1.095137.3.579.2.[id number] 2.16840.1.237605.3.579.2.[id number] 2.16840.1.728567.3.579.2.33300-35-6824Tvqfoyh96644333 2.16840.1.440927.3.579.2.09347-29-4234Sioxlsj2948673 2.840.1.436368.3.579.2.546045-64-9222Hawjbvf8468911 2.840.1.232360.3.579.2.613798-00-7144Ktuadbr1969665 2.840.1.333575.3.57[id number] 2.840.1.342705.3.579.2.[id number] 2.840.1.788043.3.579.2.38670-34-6361Rtpvtgb63380621 2.840.1.133481.3.579.[id number] 2.840.1.588192.3.579.[id number] 2.840.1.417707.3.579.2.83816-73-1935Ughqxaa81417412 2.840.1.268115.3.579.2.54510-73-1523VkiqlcnH6G497Z4371920-74-3661Fpqmxbg 1800[id number] Health InsuranceAetna Insurance [id number] 2.16.840.1.382620.3.579.2.835Eylpcaq23871452 2.16.840.1.954989.3.579.2.531 Myacocg74604954 2.16.840.1.699237.3.579.2.475Ulyowpj94505197112 2.16.840.1.892976.19UnknownAnthem /[id number] Social History DateTypeDetailFacilityStart: 06-20-2021 End: 06-38-1831Czxikwa smoking status NHISNever smoked tobaccoKing'S Daughters [facility] [place] Comment on above:Denies.Start: 06-20-2021 End: 36-27-0629Fpzohaq use and exposureSmokeless tobacco non-userCity Hospitaltart: 88-17-4979Ltbamis intakeNot AskedCity Hospitaltart: 07-02-2021 History SDOH Alcohol CommentnoneCregency hospital company ClinicStart: 41-92-1814Gnj Assigned At BirthNot on [facility] Systemtart: 01-09-2022 End: 29-18-2888Vbmhgnlm to SARS-CoV-2 (event)Not sureCity Hospitaltart: 22-62-2386Nyn Assigned At [facility] HospitalToUC HealthComment on above:Hilario.deniesTobacco smoking statusRegency Hospital Cleveland Easttart: 11-19-2022 End: 73-28-2317Ash Assigned At [facility] Campustart: 36-43-6889Xzzjvbq smoking statusNeCherrington Hospital [facility] Comment on above:Denies.Start: 07-11-2023 End: 05-78-6376Okpcqmz intakeLifetime non-drinker (finding)[facility] HealthcareStart: 11-19-2022 End: 37-60-6943Nhvcfey of Social functionNOMS HealthcareWithin the last year, have you been afraid of your partner or ex-partner?NoNOMS HealthcareAre you now , , , , never or living with a partner? Living with partnerNOMS HealthcareHow often to you have a drink containing alcohol?NeverNOMS HealthcareHow hard is it for you to pay for the very basics like food, housing, medical care, and heatingSomewhat hardNOMS HealthcareDo you feel stress - tense, restless, nervous, or anxious, or unable to sleep at night because yourmind is troubled all the time - these days [OSQ]To some extentNOMS Healthcare(I/We) worried whether (my/our) food would run out before (I/we) got money to buy more.Sometimes trueNOCT HealthcareStart: 99-62-5132Wdzpjnr Comment caffeine: 2-3 cups per dayNOCT HealthcareStart: 56-12-8468Eklptt identity Identifies as female gender (finding)[facility] HealthcareStart: 08-10-2023 End: 44-38-5490Cydelzo smoking statusLight tobacco smoker (finding)[facility] Easttart: 73-41-1471Eozbxsn smoking statusEx-smoker (finding) [facility] Easttart: 10-09-2013 End: 33-43-7006QztTdxvnm (finding)[facility] Functional Status KkpvWyuydpszmwXkdkhdFwshalqs53-80-6608Oydqbrwega StatusN/[facility]05-07-2024Functional StatusN/[facility]03-12-2024 Functional StatusN/[facility]01-23-2024Functional StatusN/A [facility]01-20-2024Functional StatusN/[facility] Duix03-36-6062Shncvrezco StatusN/[facility]09-01-2023Functional StatusN/[facility]08-19-2023 Functional StatusN/[facility] CenterSthtbw07-48-2318Jnlokmjfmo StatusN/A [facility]06-28-2023Functional StatusN/BLAN[facility]06-17-2023Functional StatusN/[facility] Clinical Notes 08-29-2013 to 01-03-2025 Note Date & HmaaOzooCfcvqmnz15-35-7365 NoteED Patient Education Note Neurology Migraine Headache A [...] to examine it (cerebrospinal fluid analysis, or CSFanalysis). How is this treated? This condition may [...] these instructions at home: Medicines ??? Take bxeh-paj-qawfmue and prescription medicines only as told by your provider. ??? Ask your provider if the medicine prescribed to you: ? Requires you to avoid driving or using machinery. ? Can cause constipation. You may need to take these actions to prevent or treat constipation: ? Drink enough fluid to keep your pee (urine) pale yellow. ? Take czco-qdo-llwbyup or prescription medicines. ? Eat foods that [...] will monitor your s (more content not included)...[facility]08-04-2025 NoteED Patient Education Note Gastroenterology Abdominal Pain, Adult [...] these instructions at home: Medicines ??? Take wmqj-pbc-tmzqsba and prescription medicines only as told by [...] provider. Document Revised: 03/03/2023 Document Reviewed: 03/03/2023 Fon Patient Education ? 2023 [employer] Infectious Disease Sore Throat A sore [...] these instructions at home: Medicines ??? Take fapb-gtn-vskdcwy and prescription medicines only as told by your health care provider. ??? Children often get sore throats. Do not give your child aspirin because of the association withReye's syndrome. ??? Use throat sprays to soothe [...] and water are not available, use hand laboratory secretary. Contact a health care provider if: ??? [...] the symptoms will go (more content not included)...[facility]06-28-2025 Hospital Discharge instructions Patient Education 11/25/2024 17:02:02 Urinary Tract Infection, Adult, Swxf-ot-Evrc Urinary Tract Infection, Adult A urinary tract infection (UTI) is an infection of any part of the urinary tract. The urinary tractincludes: The kidneys. The ureters. The bladder. The [...] Follow these instructions at home: Medicines Take qkpc-hil-quonyne and prescription medicines only as told by [...] a female. Use each tissue one time whenyou wipe. Drink enough fluid to keep your [...] provider. Document Revised: 12/22/2020 Document Reviewed: 12/27/2020 Fon Patient Education 2023 [employer]. Follow Up Care 11/25/2024 16:04:38 With:MINAL NEWMAN Address: [address] [place] [address], [address] [address]- Business (1) When:11/28/2024 16:59:04 Comments:Call for diagnosis based follow up [facility] 06-28-2025 NoteED Patient Education Note Obstetrics and Gynecology Urinary Tract Infection, Adult A urinary tract infection (UTI) is an infection of any part of the urinary tract. The urinary tractincludes: ??? The kidneys. ??? The ureters. ??? [...] these instructions at home: Medicines ??? Take wzzx-pjd-amngigc and prescription medicines only as told by [...] provider. Document Revised: 12/22/2020 Document Reviewed: 12/27/2020 Fon Patient Education ? 2023 [employer]View.[facility] 11-25-2024 Evaluation + Plan note Diagnostic Tests Pending * Urine Culture 11/25/24 [facility] 05-22-2025 History of Present illness Narrative* Blake Guevara MD - 10/19/2024 2:00 PM EDT Images [...] ovulation. Assessment & Plan documented in this encounterMissouri [facility] Hospital-[facility]ullivanCwcefrtugc19-62-8646 History of Present illness Narrative* Blake Guevara MD - 09/27/2024 2:30 PM EDT Images from the original note [...] breakouts are acknowledged. Laboratory tests conducted 2021 withlow estrogen GYNECOLOGICAL HISTORY: - Last menstrual period: [...] conducted to confirm a potential diagnosis of polycysticovarian disease. A hormone regimen/Sprintec is advised to [...] consider alternatives if necessary documented in this encounterMissouri Baptist Hospital-SullivanFkayjnjbro84-71-1705 Evaluation + Plan note Extracted from:Title:ED NoteAuthor:Troy Treadwell DODate:10/29/23 Chest pain (R07.9: Chest sam n, unspecified) [...] Troponin 1 Hr. XR Chest Single View [facility]05-31-2024 Hospital Discharge instructions Patient Education 10/29/2023 04:33:03 [...] Follow these instructions at home: Medicines Take nbhg-bfu-vxkepvn and prescription medicines only as told by [...] provider. Document Revised: 07/31/2021 Document Reviewed: 07/31/2021 Fon Patient Education 2022 [employer]View. Follow Up Care 10/29/2023 02:25:56 With:MINAL NEWMAN Address: [address] [facility], [address] [address]- Business (1) When:Within 3 Day(s) [facility]05-08-2024 Hospital Discharge instructions Patient Education 10/05/2023 22:21:16 Migraine Headache, Ljot-po-Espc Migraine Headache A migraine headache is a [...] Follow these instructions at home: Medicines Take vdvo-opk-vuncuhw and prescription medicines only as told by your doctor. Ask your doctor if the medicine prescribed to you: ?Requires you to avoid driving or using heavy machinery. ?Can cause trouble pooping (constipation). You may need to take these steps to prevent or treat trouble pooping: ?Drink enough fluid to keep your pee (urine) pale yellow. ?Take rbmw-nws-canmzpo or prescription medicines. ?Eat foods that are [...] provider. Document Revised: 09/08/2019 Document Reviewed: 06/29/2019 Fon Patient Education 2022 [employer] Follow Up Care 10/05/2023 20:35:15 With:MINAL NEWMAN Address: [facility][note 3] [address] [facility], [address] [address] [facility] (1) When:10/08/2023 Comments:Continue taking your medications as prescribed. Please follow-up with your primary care doctor next2 to 3 days for further evaluation and management. Please return to the ED for any new or worseningsymptoms. [facility]05-07-2024 Evaluation + Plan noteExtracted from: Title:ED NoteAuthor:Deana Mohan DO ADate:10/05/23 Headache, migraine (G43.909: Migraine, unspecified, not intractable, [...] mL, IV, 983.61 mL/hr, for 30 day(s), Stopdate 11/04/23 20:52:00 EDT, STAT, Start date 10/05/23 20:53:00 EDT, 61 minute(s), Total volume (mL): 1,000, 107 kg, 2.18, m2 [facility]03-13-2024 Hospital Discharge instructions Patient Education 08/11/2023 00:20:20 [...] medicines to help relieve symptoms, such as: Cxlz-vjg-tyxbgfn cold medicines. Cough suppressants. Coughing is a [...] and other clear broths. General instructions Take jckm-ixl-weopynd and prescription medicines only as told by [...] and water are not available, use hand laboratory secretary. Avoid touching your mouth, face, eyes, or [...] provider. Document Revised: 12/17/2021 Document Reviewed: 12/17/2021 Fon Patient Education 2022 [employer]View. Follow Up Care 08/10/2023 22:47:52 With:MINAL NEWMAN Address: [address] [place] [address], [address] [address] Business (1) When:Within 3 Day(s) [facility]03-12-2024 Evaluation + Plan noteExtracted from: Title:ED NoteAuthor:Mile Troy DarinDate:08/10/23 Acute URI (J06.9: Acute uppe r respiratory infection, unspecified) Orders: albuterol, 180 mcg, 2 puff(s), Aerosol, Inhalation, q6hr PRN Shortness of breath or wheezing, STAT,Start date 08/10/23 23:35:00 EDT, teach and treat only predniSONE, 40 mg = 2 tab(s), Oral, Daily, X 4 day(s), # 8 tab(s), Refills(s) 0, Pharmacy: [facility], 165, cm, 08/10/23 23:00:00 EDT, Height/Length Dosing, 103.6, kg, 08/10/23 23:00:00 EDT, Weight Dosing predniSONE, 40 mg = 2 tab(s), Tab, Oral, Once, Stop date 08/10/23 23:35:00 EDT, STAT, Start date 08/10/23 23:35:00 EDT, 08/10/23 23:35:00 EDT ECG 12 Lead Adult Influenza A&B Ag Rapid COVID Antigen ([facility] [place]) XR Chest Single View Addendum by Satish Thao DO on August 11, 2023 08:47:32 EDT I did review the abnormal chest x-ray with Dr. Shipman. Patient had no abdominal complaints. Has normal documented abdominal exam. Likely some overlying bowel gas. [facility]02-11-2024 History of Present illness Narrative* Yahir Chacon DO - 07/11/2023 11:55 AM EST HPI: Historian [...] within next 7-10 days. documented in this encounterMissouri Baptist Hospital-SullivanRpcmblcesc42-15-8365 Hospital Discharge instructions Patient Education 06/23/2023 01:40:23 [...] Treatment for this condition includes: Antibiotic medicine. Vlgv-sxl-itpwgmb medicines to treat discomfort. Drinking enough water [...] Follow these instructions at home: Medicines Take csqp-jpy-dmsuwtg and prescription medicines only as told by [...] provider. Document Revised: 12/27/2020 Document Reviewed: 12/27/2020 Fon Patient Education 2022 [employer]View. Follow Up Care 06/22/2023 20:45:38 With:MINAL TRENT Address: [address] , [facility] [address] [place] [address]- Business (1) When:Within 3 Day(s) [facility]01-23-2024 Evaluation + Plan noteExtracted from: Title:ED NoteAuthor:Troy Treadwell DODate:06/22/23 Acute UTI (N39.0: Urinary tr act infection, site not specified) AP (abdominal pain) (R10.9: Unspecified abdominal pain) Orders: cefpodoxime, 200 mg = 1 tab(s), Oral, q12hr, X 10 day(s), # 20 tab(s), Refills(s) 0, Pharmacy: [facility], 164, cm, 06/22/23 20:52:00 EST, Height/Length Dosing, 95.7, kg, 06/22/23 20:52:00 EST, Weight Dosing ceftriaxone + Sodium Chloride 0.9% intravenous solution 50 mL, 1,000 mg = 1 EA, IV Piggyback, Once,Stop date 06/23/23 0:26:00 EST, STAT, Start date 06/23/23 0:26:00 EST, 100 mL/hr, Infuse over 30 minute(s), 06/23/23 0:26:00 EST ketorolac, 15 mg = 1 mL, Injection, IV Push, Once, Stop date 06/22/23 21:31:00 EST, STAT, Start date 06/22/23 21:31:00 EST, 06/22/23 21:31:00 EST naproxen, 500 mg = 1 tab(s), Oral, BID, X 10 day(s), # 20 tab(s), Refills(s) 0, Pharmacy: [facility], 164, cm, 06/22/23 20:52:00 EST, Height/Length Dosing, 95.7, kg, 06/22/23 20:52:00 EST, Weight Dosing Sodium Chloride 0.9% intravenous solution, 1,000 mL, Soln-IV, IV, Once, Stop date 06/22/23 21:31:00EST, STAT, Start date 06/22/23 21:31:00 EST, Infuse over 61, minute(s) Basic Metabolic Panel CBC w/ Auto Diff CT Abdomen/Pelvis w/ Contrast eGFR Extra Blue Tube Extra SST Tube Hepatic Function Panel Lipase Level Saline Lock Insert U Beta Hcg Qual UA With Cult Reflex Urine Culture [facility]01-13-2024 Evaluation note* Encounter Date Diagnosis Assessment Notes Treatment Notes Treatment Clinical Notes May, Sore throat (ICD-10 - J02.9) May,cute non-recurrent pansinusitis (ICD-10 - J01.40)Advised that strep test was negative today. Will tx tody for bacterial sinusitis based on physical exam and duration of symptoms. Take antibiotic as prescribed, complete entire course of therapy evenif symptoms resolve. Medrol as directed with food, discussed SE. Capmist as directed for cough/congestion. Supportive care as directed, push fluids and rest, Tylenol/Motrin as directed for aches/fever, warm moist compress over sinuses several times a day, cool mist humidifier, nasal saline spray asdirected. Symptoms should improve in the next 3 days, if symptoms persist follow up with PCP. Immediate eval for warning s/sx as discussed. Patient verbalizes understanding and is agreeable to treatment plan. [facility] Other 11-05-2023 Hospital Discharge instructions Patient Education [...] by your health care provider. Follow the timber spotter's instructions for use. Tighten and properly adjust [...] provider. Document Revised: 03/10/2021 Document Reviewed: 03/10/2021 Fon Patient Education 2022 [employer]. 04/04/2023 13:56:12 Foot Contusion Foot Contusion A [...] may be recommended to support your foot. Zvqh-uro-tiayipr anti-inflammatory medicines may also be recommended for [...] sitting or lying down. General instructions Take apsy-oxp-txvaxxr and prescription medicines only as told by [...] provider. Document Revised: 08/20/2021 Document Reviewed: 08/20/2021 [employer] Patient Education 2022 [employer]View. Follow Up Care 04/04/2023 12:13:18 With:Nicholas Huerta Address: [address] [place] [address]- [phone] Business (1) When:04/07/2023 13:40:03 Comments:Return to the emergency room if your pain gets worse or any new symptoms [facility]11-05-2023 Evaluation + Plan noteExtracted from: Title:ED NoteAuthor:Tim Knight M.D. HDate:04/04/23 1. Contusion of right foot ( S90.31XA: Contusion of right foot, initial encounter) Orders: ibuprofen, 600 mg = 1 tab(s), Tab, Oral, Once, Stop date 04/04/23 12:42:00 EST, STAT, Start date 04/04/23 12:42:00 EST, 04/04/23 12:42:00 EST Post-op Shoe XR Foot 3+ Views Right [facility]09-01-2023 Hospital Discharge instructions Patient Education 01/29/2023 15:02:04 [...] help with your condition: Managing pain Take dqtt-onq-cteeqyf and prescription medicines only as told by [...] provider. Document Revised: 10/15/2021 Document Reviewed: 10/15/2021 [employer] Patient Education 2022 [employer] Follow Up Care 01/29/2023 12:42:21 With:Jarett Post Address: [address] [facility] [place] [place] [address]- When:02/01/2023 14:54:55 Comments:Return to the emergency room if your headache recurs or any new symptoms. [facility]09-01-2023 Evaluation + Plan noteExtracted from: Title:ED NoteAuthor:Antonia Singh, Tim HDate:01/29/23 1. Headache (R51.9: Headache , unspecified) Orders: ketorolac, 30 mg = 1 mL, Injection, IV Push, Once, Stop date 01/29/23 13:10:00 EDT, STAT, Start date 01/29/23 13:10:00 EDT, 01/29/23 13:10:00 EDT methylPREDNISolone, 125 mg = 2 mL, Injection, IV Push, Once, Stop date 01/29/23 13:10:00 EDT, STAT,Start date 01/29/23 13:10:00 EDT, 01/29/23 13:10:00 EDT metoclopramide, 10 mg = 2 mL, Injection, IV Push, Once, Stop date 01/29/23 13:10:00 EDT, STAT, Start date 01/29/23 13:10:00 EDT, 01/29/23 13:10:00 EDT Sodium Chloride 0.9% intravenous solution, 1,000 mL, Soln-IV, IV, Once, Stop date 01/29/23 13:10:00EDT, STAT, Start date 01/29/23 13:10:00 EDT, Infuse over 61, minute(s) CT Head or Brain w/o Contrast [facility]08-19-2023 Hospital Discharge instructions Patient Education 01/16/2023 16:25:04 [...] was caused by dry mucous membranes, use eicc-bfo-fwynbgq saline nasal spray or gel and a [...] provider. Document Revised: 03/14/2020 Document Reviewed: 03/14/2020 Fon Patient Education 2021 [employer]View. 01/16/2023 16:25:04 Migraine Headache Migraine Headache A [...] Follow these instructions at home: Medicines Take tway-naz-rszpxza and prescription medicines only as told by your health care provider. Ask your health care provider if the medicine prescribed to you: ?Requires you to avoid driving or using heavy machinery. ?Can cause constipation. You may need to take these actions to prevent or treat constipation: ?Drink enough fluid to keep your urine pale yellow. ?Take hlvb-xzi-myqreko or prescription medicines. ?Eat foods that are [...] provider. Document Revised: 09/08/2019 Document Reviewed: 06/29/2019 Fon Patient Education 2022 [employer]View. Follow Up Care 01/16/2023 15:36:27 With:Hotchalk Address: [place] [address]- Business (1) When:01/19/2023 16:24:57 With:MINAL NEWMAN Address: [address], [place] [address] Business (1) When:Within 3 Day(s) [facility]08-19-2023 Evaluation + Plan noteExtracted from: Title:ED NoteAuthor:Juan M CHRISTOPHER GusDate:01/16/23 Epistaxis (R04.0: Epistaxis) Migraine (G43.909: Migraine, unspecified, not intractable, without status migrainosus) Orders: oxymetazoline nasal, 2 spray(s), Nasal, BID, 15 mL, Refill(s) 0, [facility] [id number], 164, cm,01/16/23 15:42:00 EDT, Height/Length Dosing, 97.8, kg, 01/16/23 15:42:00 EDT, Weight Dosing Automated Diff Beta hCG Qual CBC w/ Auto Diff Comprehensive Metabolic Panel eGFR PT & PTT [facility]07-02-2023 Hospital Discharge instructions Patient Education 11/29/2022 09:57:11 Pharyngitis, Empl-fo-Jwof Pharyngitis Pharyngitis is a sore throat (pharynx). [...] Follow these instructions at home: Medicines Take pmuw-ppk-dckkwtd and prescription medicines only as told by [...] and water are not available, use hand laboratory secretary. Do not touch your eyes, nose, or [...] provider. Document Revised: 08/13/2021 Document Reviewed: 08/13/2021 Fon Patient Education 2022 [employer] Follow Up Care 11/29/2022 09:09:51 With:MINAL NEWMAN Address: [facility][note 3] [address] [facility], [place] [id number] [facility] (1) When:12/02/2022 09:48:03 [facility]06-28-2023 Evaluation + Plan noteExtracted from: Title:ED NoteAuthor:Stanley MUNOZ, Tavo FlowersDate:11/25/22 Pharyngitis (J02.9: Acute ph aryngitis, unspecified) Orders: dexamethasone, 10 mg = 2.5 mL, Injection, Oral, Once, Stop date 11/25/22 11:48:00 EDT, STAT, Start date 11/25/22 11:48:00 EDT, 11/25/22 11:48:00 EDT Group A Strep by PCR Rapid Strep w/rfx [facility]06-28-2023 Hospital Discharge instructions Patient Education 11/25/2022 11:59:45 Pharyngitis, Csuh-le-Njeo Pharyngitis Pharyngitis is a sore throat (pharynx). [...] Follow these instructions at home: Medicines Take juuj-zug-nypafpo and prescription medicines only as told by [...] and water are not available, use hand laboratory secretary. Do not touch your eyes, nose, or [...] provider. Document Revised: 08/13/2021 Document Reviewed: 08/13/2021 Fon Patient Education 2022 BView. Follow Up Care 11/25/2022 11:17:52 With:MINAL NEWMAN Address: [facility][note 3] [address] , [address] [address] Business (1) When:11/28/2022 11:49:42 Comments:Follow-up with your primary care provider in 3 to 5 days. If symptoms worsen, do not improve, or new symptoms arise please report back to emergency department for further evaluation. [facility]06-18-2023 Hospital Discharge instructions Patient Education 11/14/2022 23:53:31 [...] Treatment for this condition includes: Antibiotic medicine. Huuy-zsr-ybjecjs medicines to treat discomfort. Drinking enough water [...] Follow these instructions at home: Medicines Take jkac-akm-tjaelyz and prescription medicines only as told by [...] provider. Document Revised: 12/27/2020 Document Reviewed: 12/27/2020 Fon Patient Education 2022 [employer]View. Follow Up Care 11/14/2022 23:02:53 With:MINAL JOHNSONCASI Address: [address] [place] [address], [place] [address] [place] [address] Business (1) When:11/17/2022 Comments:Return to the emergency room if your symptoms get worse, vomiting, fever or any new symptoms [facility]06-17-2023 Evaluation + Plan noteExtracted from: Title:ED NoteAuthor:Tim Knight M.D. HDate:11/14/22 1. Urinary tract infection ( N39.0: Urinary [...] Diagnostic Tests Pending * Urine Culture 11/14/22 [facility]10-07-2022 History of Present illness Narrative* Adrianna Ashford PA-C - 03/06/2022 10:26 AM EDT Images from the original note were not included. Julierut Tantibhedhyangkul, MD P Vikram Non Ivf Pool Could you please call this pt for me and relay the message I sent to her yesterday about her MRI and plans? Thank you! Sapna Sawyer MD unable to reach, left message to return my call. Left a MC asking to check her MC. Adrianna Ashford PA-C March 06, 2022 10:31 AM documented in this encounter[facility] [place] NoteHNO ID: [id number] Author: BRITNEY Blanc) Service: ? 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 Work Phone: Evaluation note* Diagnosis Encounter for screening for cervical cancer- Primary Encounter for gynecological examination without abnormal finding PCOS (polycystic ovarian syndrome) Polycystic ovaries documented in this encounter [facility] HealthcareEvaluation note* Diagnosis PCOS (polycystic ovarian syndrome) Polycystic ovaries General counseling and advice on contraceptive management Other general counseling and advice for contraceptive management Encounter for gynecological examination documented [facility] Narrative No data available for this section [facility] Additional Instructions Push fluids Rest Tylenol or Motrin if needed for pain Follow-up with your PCP Return here if any problems persist or worsenKindred Healthcare Work Phone: Hospital Discharge instructions No data available for this section [facility] Progress note No data available for this section [facility] Summary Purpose Family History No Family History Records Found Relationship Condition Age at Onset Recorded Date/T giovani father Hypertension Unknown Diabetes mellitusUnknownBipolar disorderUnknownmotherDiabetes mellitusUnknown sisterDiabetes mellitusUnknownsisterGestational diabetes mellitus (GDM)Unknown maternal grandfatherMalignant neoplasmUnknownCerebrovascular accident (CVA) UnknownSeizuresUnknownmaternal grandmotherDiabetes mellitusUnknownpaternal grandfatherMyocardial infarctionUnknownDeceasedUnknownpaternal grandmother DeceasedUnknown Advance Directives No Advanced Directives Records Found Advance Directive Response Recorded Date/ Time Advance Directives No October 18 8:13am Chief Complaint and Reason for Visit [...] AUTHOR 08/22/2021 [facility] DATE CREATED AUTHOR AUTHOR'S ORGANIZ ATION 01/23/2022 [facility] DATE CREATED AUTHOR AUTHOR'S ORGANIZ ATION 05/23/2022 [facility] DATE CREATED AUTHOR AUTHOR'S ORGANIZ ATION 08/06/2022 [facility] DATE CREATED AUTHOR AUTHOR'S ORGANIZ ATION 09/02/2022 [facility] DATE CREATED AUTHOR AUTHOR'S ORGANIZ ATION 04/01/[address] [facility] DATE CREATED AUTHOR AUTHOR'S ORGANIZ ATION 10/30/2023 [facility] DATE CREATED AUTHOR AUTHOR'S ORGANIZ ATION 10/26/2024 [facility] DATE CREATED AUTHOR AUTHOR'S ORGANIZ ATION 11/26/2024 [facility] DATE CREATED AUTHOR AUTHOR'S ORGANIZ ATION 01/02/2025 [facility] DATE CREATED AUTHOR AUTHOR'S ORGANIZ ATION 03/16/2025 [facility] Source Comments (unrecognize d section and content) In the event this informatio n is protected by the Federal Confidentiality of Alcohol and Drug Abuse Patient Records regulations: The Federal rules restrict any use of the information to criminally investigate or prosecute any alcohol or drug abuse patient.[facility] [place] the event this information is protected by the Federal Confidentiality of Alcohol and Drug Abuse Patient Records regulations: The Federal rules restrict any use of the information to criminally investigate or prosecute any alcohol or drug abuse patient.[facility] [place] Reason for Visit (unrecogniz ed section and content) SpecialtyDiagnoses / ProceduresReferred By ContactReferred To ContactMR IMAGING Diagnoses Amenorrhea Procedures MRI PITUITARY WO/W IVCON MRI BRAIN BRAIN STEM W/O W/CONTRAST MATERIAL Sanford Degroot MD [address] [place] [address] Mr Imaging Referral IDStatusReasonStart DateExpiration DateVisits RequestedVisits [id number] Auto-Generated Referral /[id number] UpReasonCommentsGynecologic ExamPatient present for yearly. Patient denies any issues or complaints. Patient would like to discuss other control options.ReasonCommentsFollow-up Care Teams (unrecognized sec tion and content) Team Status: Active Member Role Status Dates Minal Newman DO Primary Care Provider Active Team Status: Inactive Member Role Status Dates Minal Newman DO Primary Care Provider Active Ny Pham ProviderActive Team Status: Inactive Member Role Status Dates Minal Newman DO Primary Care Provider Active Ny Davies ProviderActiveTeam MemberRelationshipSpecialty Start DateEnd Date Minal Newman DO [address] [place] [address] [facility] - [facility]22 Minal Newman, DO [address] [place] [address] PCP - [employer]05/31/23 Team Status: Inactive Member Role Status Dates Minal Newman DO Primary Care Provider Active Start: September 20, 2024 End: September 20, 2024Joanne Spear ProviderActiveStart: September 20, 2024 End: September 20, 2024Team MemberRelationshipSpecialtyStart DateEnd Date Minal Newman, DO [address] [place] [address] [facility] - [facility]11/17/22 Minal Newman, DO [address] [place] [address] PCP - [place] [employer]05/31/23Team MemberRelationshipSpecialtyStart DateEnd Date Minal Newman DO [address] [place] [address] PCP - GeneralFamily Medicine11/17/22 Goals (unrecognized section and content) Goals may [...] BE BASED ON THE PRIMARY CLINICAL RECORDS. [employer] [facility]. provides no warranty or guarantee of the accuracy or completeness of information in this document.
--- OUTSIDE RECORDS SUMMARY | 2025-03-28 05:42 | XMS_ITS | Patient Health Record ---
Author Organization [facility] Address [address] [place] [address] Care Team Providers Care Employee Development Specialist Name Role Phone Filiberto Calhoun Primary Care [...] Status W/U Status Risk Notes Problem Seasonal allergy (020186622) Seasonal all ergies (J30.2) ActiveconfirmedProblemObesity (075181185)Obesity (BMI 30-39.9) (E66.9)Active confirmed Plan Of Treatment No Information Insurance Providers Payer Name Payer Address Payer Phone Subscriber Number Group Number Insured Name Patient Relationship to Insured Coverage Start Date Coverage End Date [facility] [address] [place] [address] [id number] ARIANECRISTIY Self - patient is the insured Medical (General) History Medical History History ICD Code Rheumatic Fever (age 12) Seasonal igjwzkimxE64.2
--- OUTSIDE RECORDS SUMMARY | 2025-03-28 05:42 | XMS_ITS | Clinical Summary ---
Author Organization [facility] Address [address] [place] [address] Care Team Providers Care Plant And Maintenance Technician Name Role Phone Unavailable Primary Care Provider Unavailabl e Allergies Active AllergyReactionsCriticalityNoted PoloOqhbazjgZnqqiHfonbau83/21/2022 Medications No known medications Family History Medical HistoryRelationCommentsNo Known ProblemsBrotherDiabetesFather HypertensionFatherCancerMaternal AuntDiabetesMaternal GrandfatherStrokeMaternal GrandfatherAsthmaMaternal GrandmotherDiabetesMaternal GrandmotherHypertension Maternal GrandmotherDiabetesMotherDiabetesPaternal GrandfatherDiabetesPaternal GrandmotherNo Known ProblemsSister 1No Known ProblemsSister 2No Known Problems Sister 3No Known ProblemsSister 4RelationStatusCommentsBrotherFatherAlive Maternal AuntMaternal GrandfatherMaternal GrandmotherMotherAlivePaternal GrandfatherPaternal GrandmotherSister 1Sister 2Sister 3Sister 4 Social History Tobacco UseTypesPacks/DayYears UsedDateSmoking Tobacco: NeverSmokeless Tobacco: NeverAlcohol UseStandard Drinks/WeekCommentsNot Asked0 (1 standard drink = 0.6 oz pure alcohol)noneArea Deprivation IndexAnswerDate RecordedNational Score (1- 100), lower number is lower skce643506/12/2022State Score (1-10), lower number is lower riskNot on file3Data from: https://www.neighborhoodatlas.medicine.[facility].edu/. Last address used for [address] [place]06/[birth year]22CommentsNoSex and Gender InformationValueDate RecordedSex Assigned at BirthNot on fileLegal SexFemale 05/29/2021 3:03 PM ESTGender IdentityNot on fileSexual OrientationNot on file Last Filed Vital Signs Vital SignReadingTime TakenCommentsBlood Xohwczpt361/61007/02/2021 10:30 AM EST Tzidj8915 10:30 AM ESTTemperature--Respiratory Rate--Oxygen Saturation-- Inhaled Oxygen Concentration--Tuaxsu708.3 kg (241 lb)07/02/2021 10:30 AM EST Pvvmyl976 cm (5' 3 )07/02/2021 10:30 AM ESTBody Mass Index42.69007/02/2021 10:30 AM EST Plan of Treatment Health MaintenanceDue DateLast DoneCommentsPeds To Adult Transition Initial Jflsmsujlj45/23/2015Peds To Adult Transition Annual Xxcroqhehh93/23/2017HPV Vaccine (1 - 3-dose series)2017Meningococcal B Vaccine (1 of 2 - Standard) 2018Anxiety Oixrdnwrm92/23/2021hlamydia Screening (18-24)2020 Depression Zhdrtpcrz54/23/2021GC (Gonorrhea) Screening (18-24)2020HIV Jwnlfhxnf13/23/2021Hepatitis C Bayvetzot82/23/2021TaP,Tdap,Td Vaccine (1 - Tdap)2021Hepatitis B Vaccine (1 of 3 - 19+ 3-dose series)2021 Cervical Cancer Xbkuvmsgk40/23/2024Covid-19 Vaccine (1 - 2024- season) 2025Influenza Vaccine (#1)2025 Insurance
[2025-03-28 05:45] LABS: Glucose Urine UA NEGATIVE (NEGATIVE)
[2025-03-28 05:51] LABS: HCG Qualitative Urine* NEGATIVE (NEGATIVE)
[2025-03-28 05:58] LABS: Cast Seen? NONE SEEN #/LPF (NONE SEEN); Crystals Seen? None Seen #/HPF (None Seen); Urine Culture Indicated YES-FRMC
--- NOTE | 2025-03-28 07:22 | ED.GENADUL1 ---
HPI HPI - General Adult General Chief complaint: Urogenital-Female Stated complaint: URINARY ISSUES Time Seen by Provider: 03/28/25 05:26 Mode of arrival: walk-in History of Present Illness HPI narrative: Patient is a 24-year-old female presenting to the emergency department for evaluation of UTI. Patient states that last night she started experiencing dysuria and increased urinary frequency. She also states has been having some lower abdominal discomfort as well. Patient states she has had multiple UTIs in the past, and this feels like similar episodes however this time is less severe. She denies any back or flank pain. No fevers or chills. No nausea or vomiting. Denies history of kidney stones or any other urologic conditions. Related Data Home Medications ?Medication ?Instructions ?Recorded ?Confirmed norgestimate 0.25 mg-ethinyl 1 tab PO DAILY 10/30/24 03/28/25 estradiol 0.035 mg tablet (Sprintec (28)) Previous Rx's ?Medication ?Instructions ?Recorded amoxicillin 875 mg-potassium 1 tab PO Q12H #14 tabs 01/17/25 clavulanate 125 mg tablet prednisone 20 mg tablet 40 mg (2 x 20 mg) PO DAILY 4 days 01/17/25 #8 tabs nitrofurantoin macrocrystal 100 mg 100 mg PO BID 7 days #14 caps 03/28/25 capsule phenazopyridine 200 mg tablet 200 mg PO Q8H PRN pain 2 days #6 03/28/25 tabs Allergies Allergy/AdvReac Type Severity Reaction Status Date / Time latex AdvReac Mild Hives Verified 03/28/25 05:34 Opioid HPI Opioid Management Most Recent Opioid Data: Last Pain Scale 8 Today, 05:35 Review of Systems ROS Status of ROS 10 or more systems reviewed and unremarkable except as noted in history and below PFSH PFSH Social History Little interest or pleasure in doing things: not at all Feeling down, depressed, or hopeless: not at all Exam Narrative Exam Narrative: CONSTITUTIONAL: Well-appearing, nontoxic, answering questions and following commands appropriately SKIN: Was warm and dry. EYES: Sclerae white. EARS, NOSE, THROAT: Moist oral mucosa. RESPIRATORY: Clear to auscultation bilaterally, no wheezes, crackles, or stridor, no use of accessory muscles CARDIOVASCULAR: Normal rate and regular rhythm. There is no S3, S4, murmur, rub. GASTROINTESTINAL: There is mild tenderness to palpation in the suprapubic region bilaterally. No rebound tenderness or guarding. Negative CVA tenderness bilaterally. MUSCULOSKELETAL: No peripheral edema. NEUROLOGIC: Patient is awake and alert. Facies were symmetrical. Constitutional Vital Signs, click to edit/add: Last Vital Signs Temp 98.1 F 03/28/25 05:35 Pulse 93 H 03/28/25 05:35 Resp 16 03/28/25 05:35 BP 143/83 H 03/28/25 05:35 Pulse Ox 97 03/28/25 05:35 O2 Del Method Room Air 03/28/25 05:35 Course Vital Signs Vital signs: Vital Signs Temperature 98.1 F 03/28/25 05:35 Pulse Rate 93 H 03/28/25 05:35 Respiratory Rate 16 03/28/25 05:35 Blood Pressure 143/83 H 03/28/25 05:35 Pulse Oximetry 97 03/28/25 05:35 Oxygen Delivery Method Room Air 03/28/25 05:35 Temperature 98.1 F 03/28/25 05:35 Pulse Rate 93 H 03/28/25 05:35 Respiratory Rate 16 03/28/25 05:35 Blood Pressure 143/83 H 03/28/25 05:35 Pulse Oximetry 97 03/28/25 05:35 Oxygen Delivery Method Room Air 03/28/25 05:35 Medical Decision Making MDM Narrative Medical decision making narrative: Patient is a 24-year-old female, history only significant for recurrent UTIs, presenting to the emergency department for evaluation of dysuria, urinary frequency, and suprapubic discomfort starting last night. Her vital signs on arrival are within normal limits. She is afebrile and hemodynamically stable. Examination as noted above. Differential diagnose includes UTI, cystitis. Low concern for pyelonephritis as she has no CVA tenderness and no fevers/nausea/vomiting. No history of kidney stones to suggest nephrolithiasis. Urinalysis was obtained. Urinalysis was suggestive of UTI with 50-75 WBCs, small amount of bacteria, 20-50 RBCs, large amount of leukocyte esterase. I do believe the patient is stable for discharge. She is tolerating p.o. and is not septic. She was given a prescription for Pyridium and Macrobid 100 mg twice daily x 7 days. I did urge the patient to return to the emergency department immediately should she develop symptoms of fevers, flank pain, vomiting, or worsening of her UTI symptoms. She was instructed follow-up with her PCP for further care. Patient understands agrees the plan. FINAL IMPRESSION: #Acute cystitis DISPOSITION: Discharged home CONDITION: Good Lab Data Lab results reviewed: Yes I reviewed the patient's lab results Labs: Lab Results 03/28/25 Range/Units 05:30 Urine Color Yellow (YELLOW) Urine Clarity Clear (CLEAR) Urine pH 6.5 (5.0-9.0) Ur Specific [place] 1.020 (1.005-1.025) Urine Protein >=300 A (NEG/TRACE) mg/dL Urine Glucose (UA) Negative (NEGATIVE) mg/dL Urine Ketones Trace A (NEGATIVE) mg/dL Urine Occult Blood Large A (NEGATIVE) Urine Nitrite Negative (NEGATIVE) Urine Bilirubin Small A (NEGATIVE) Urine Urobilinogen 1.0 (0.2-1.0) EU/dL Ur Leukocyte Esterase Large A (NEGATIVE) Urine RBC 20-50 A (0-2) #/HPF Urine WBC 50-75 A (NONE SEEN) #/HPF Ur Squamous Epith Cells Rare (NONE/RARE) #/LPF Urine Crystals None seen (None Seen) #/HPF Urine Bacteria Small A (NONE SEEN) #/HPF Urine Casts None seen (NONE SEEN) #/LPF Urine Mucus None seen (NONE SEEN) Ur Culture Indicated? Yes-[facility] Urine HCG, Qual Negative (NEGATIVE) Discharge Plan Discharge Chief Complaint: Urogenital-Female Clinical Impression: Urinary tract infection Patient Disposition: Home, Self-Care Time of Disposition Decision: 06:18 Condition: Good Mode of Transportation: Private Vehicle Prescriptions / Home Meds: New phenazopyridine 200 mg tablet 200 mg PO Q8H PRN (Reason: pain) 2 Days Qty: 6 0RF nitrofurantoin macrocrystal 100 mg capsule 100 mg PO BID 7 Days Qty: 14 0RF Rx Instructions: must administer with a meal/food No Action norgestimate-ethinyl estradiol [Sprintec (28)] 0.25-0.035 mg tablet 1 tab PO DAILY amoxicillin-pot clavulanate 875-125 mg tablet 1 tab PO Q12H Qty: 14 0RF prednisone 20 mg tablet 40 mg PO DAILY 4 Days Qty: 8 0RF Print Language: Argentine Instructions: Urinary Tract Infection in Women (ED) Referrals: MINAL NEWMAN [Primary Care Provider, Unknown] - 1 week Discharge Date/Time: 03/28/25 06:34
== END 2025-03-28 06:34 | disposition home or self-care (01) ==
PROVIDERS: Emergency Provider Student in an Organized Health Care Education/Training Program; PCP Family Medicine
DX: N39.0 Urinary tract infection, site not specified (principal); Z87.440 Personal history of urinary (tract) infections
CPT/HCPCS: 81001; 81003; 84703; 87086; 87088; 87186; 99283